=== PATIENT | female | born 1950 | race Hispanic/Latino ===

== ENCOUNTER 2017-12-10 10:27 | Inpatient (IN) | payer MEDICARE, OTHER ==
[~2017-12-10] VITALS: Ht 154.9 cm; Wt 117.0 kg
[~2017-12-10 10:27] MED LIST: ASPIRIN81 MG PO; ATENOLOL50 MG PO; METFORMIN HCL500 MG PO; OXYBUTYNIN CHLOR5 MG PO; SERTRALINE HCL50 MG PO; SIMVASTATIN20 MG PO; VASOTEC10 M1 PO
--- OUTSIDE RECORDS SUMMARY | 2017-12-10 10:30 | XMS REPORT | Continuity of Care Document ---
Author Author [facility] Organization [facility] Address [address] [place] [address] Phone Unavailable Care Team Providers Care Newspaper Or Periodical Editor Name Role Phone NO, PCP PCP Unavailable Insurance Providers Guarantor Compa Casas Address [address] [place] [address] Email [email or web address] Payer [employer] Policy Number [id number] Subscriber's Name Compa Casas Relationship 18 Self / Same As Patient Effective Date 17 Payer [employer] Policy Number [id number] Subscriber's Name Compa Casas Relationship 18 Self / Same As Patient Effective Date 17 Advance Directives Directive Response Recorded Date/Time Does the patient have an advance directive? No 11/23/17 4:13am If yes, is advance directive on file with [facility]? No 11/23/17 4:13am If not on file with [facility] will patient provide a copy? No 11/23/17 4:13am Do you have a Directive to Physician? No 11/22/17 7:47pm Do you have a Medical Power of Data Analytics Architect? No 11/22/17 7:47pm Do you have an out of hospital Do Not Resuscitate Order? No 11/22/17 7:47pm Do you have any special needs we should be aware of? No 11/22/17 7:47pm Do you have a support person here with you today? Yes 11/22/17 7:47pm Did patient receive Notice of Privacy Practices? Yes 11/22/17 7:47pm Did patient receive patient rights and responsibilities? Yes 11/22/17 7:47pm Problems Medical Problem Onset Date Status SBO (small bowel obstruction) Unknown Umbilical hernia Unknown Vomiting Unknown Medications Current Home Medications Medication Dose Units Route Directions Days Qty Instructions Start Date Aspirin 81 Mg Tab.chew Oral Daily Atenolol 50 Mg Tablet 100 Oral Daily Enalapril Maleate (Vasotec) 10 Mg Tablet 20 Oral Daily Metformin Hcl 500 Mg Tablet 500 Mg Oral Twice A Day 60 Tab Oxybutynin Chloride 5 Mg Tablet 5 Mg Oral Twice A Day 30 Tab Sertraline Hcl 50 Mg Tablet 50 Mg Oral Daily 30 Tab Simvastatin 20 Mg Tablet 20 Mg Oral Today At 9:00PM Social History Social History Problem Response Recorded Date/Time Onset Date Status Hx Psychiatric Problems No 11/23/2017 4:13am Not Applicable Not Applicable Hx Eating Disorder No 11/23/2017 4:13am Not Applicable Not Applicable Hx Substance Use Disorder No 11/23/2017 4:13am Not Applicable Not Applicable Hx Depression Yes 11/23/2017 4:13am Not Applicable Not Applicable Hx Alcohol Use No 11/23/2017 4:13am Not Applicable Not Applicable Hx Physical Abuse No 11/23/2017 4:13am Not Applicable Not Applicable Smoking Status Start Date Stop Date Never Smoker Hospital Discharge Instructions No hospital discharge instruction information available. Plan of Care Discharge Date 11/27/17 6:47pm Disposition HOME, SELF-CARE Instructions/Education Provided Post Operative Pain Stitches and [place] Care Prescriptions See Medication Section Referrals QUOC HANNAH MD (Surgery) Order Date: 12/03/2017 Entered Date: 11/27/2017 5:28pm Address: [address] [place] [id number] Additional Instructions/Education TAKE DRESSING OFF THURSDAY AND WASH INCISION WITH SOAP AND WATER. APPLY NEOSPORIN NO LIFTING >10LBS REGULAR DIET TAKE PAIN MEDICATION NEEDED AND TAKE ALL ANTIBIOTICS PRESCRIBED FOLLOW UP WITH DR. HANNAH NEXT WEEK. Functional Status Query Response Date Recorded Assistive Devices Standard Walker November 23, 2017 4:01am Ambulation Ability Independent November 23, 2017 4:01am Toileting Ability Maximum Assistance November 27, 2017 11:00am Allergies, Adverse Reactions, Alerts No known allergies. Immunizations No immunization information available. Vital Signs Acute Vital Signs Vital Response Date/Time Temperature (Fahrenheit) 98.9 degrees F (97.6 - 99.5) 11/27/2017 4:34pm Pulse Pulse Rate (adult) 62 bpm (60 - 90) 11/27/2017 4:34pm Respiratory Rate 16 bpm (12 - 24) 11/27/2017 4:34pm Blood Pressure 124/57 mm Hg 11/27/2017 4:34pm Height 5 ft 0 in 11/23/2017 1:58am Weight 294.56 lb 11/27/2017 8:21am Body Mass Index 57.5 kg/m^2 11/27/2017 8:21am Results Laboratory Results Test Name Result Units Flags Reference Collection Date/Time Result Date/ Time Comments White Blood Count 6.47 x10e3/uL 4.8-10.8 11/27/2017 7:00am 11/27/2017 7 :29am Red Blood Count 3.58 x10e6/uL L 3.6-5.1 11/27/2017 7:00am 11/27/2017 7: 29am Hemoglobin 9.6 g/dL L 12.0-16.0 11/27/2017 7:00am 11/27/2017 7:29am Hematocrit 30.1 % L 34.2-44.1 11/27/2017 7:00am 11/27/2017 7:29am Mean Corpuscular Volume 84.1 fL 81-99 11/27/2017 7:00am 11/27/2017 7: 29am Mean Corpuscular Hemoglobin 26.8 pg L 28-32 11/27/2017 7:00am 2017 7:29am Mean Corpuscular Hemoglobin Concent 31.9 g/dL 31-35 11/27/2017 7:00am 11/27/2017 7:29am Red Cell Distribution Width 14.1 % 11.7-14.4 11/27/2017 7:00am 2017 7:29am Platelet Count 113 x10e3/uL L 140-360 11/27/2017 7:00am 11/27/2017 7: 29am Neutrophils (%) (Auto) 76.9 % 38.7-80.0 11/27/2017 7:00am 11/27/2017 7: 29am Lymphocytes (%) (Auto) 10.5 % L 18.0-39.1 11/27/2017 7:00am 11/27/2017 7 :29am Monocytes (%) (Auto) 10.8 % 4.4-11.3 11/27/2017 7:00am 11/27/2017 7: 29am Eosinophils (%) (Auto) 1.1 % 0.0-6.0 11/27/2017 7:00am 11/27/2017 7: 29am Basophils (%) (Auto) 0.2 % 0.0-1.0 11/27/2017 7:0011/27/2017 7:29am IM GRANULOCYTES % 0.5 % 0.0-1.0 11/27/2017 7:00am 11/27/2017 7:29am Neutrophils # (Auto) 5.0 2.1-6.9 11/27/2017 7:00am 11/27/2017 7:29am Lymphocytes # (Auto) 0.7 L 1.0-3.2 11/27/2017 7:00am 11/27/2017 7: 29am Monocytes # (Auto) 0.7 0.2-0.8 11/27/2017 7:00am 11/27/2017 7:29am Eosinophils # (Auto) 0.1 0.0-0.4 11/27/2017 7:00am 11/27/2017 7:29am Basophils # (Auto) 0.0 0.0-0.1 11/27/2017 7:00am 11/27/2017 7:29am Absolute Immature Granulocyte (auto 0.03 x10e3/uL 0-0.1 11/27/2017 7: 00am 11/27/2017 7:29am Platelet Estimate SLIGHTLY DECREASED 11/25/2017 6:56am 11/25/2017 8 :35am Platelet Morphology Comment FEW LARGE 11/25/2017 6:56am 11/25/2017 8:35am NO CLUMPING SEEN ON SLIDE. [id number] on 11/25/17 by Jessica Mojica Anisocytosis SLIGHT 11/25/2017 6:56am 11/25/2017 8:35am Red Cell Morphology Comment NORMAL 11/25/2017 6:56am 11/25/2017 8: 35am Prothrombin Time 13.3 seconds 11.9-14.5 11/22/2017 7:17pm 11/22/2017 8: 34pm Prothromb Time International Ratio 0.96 11/22/2017 7:17pm 2017 8:34pm Oral Anticoagulant Therapy INR Values: 1. Low Intensity Therapy 1.5 - 2.0 2. Moderate Intensity Therapy 2.0 - 3.0 3. High Intensity Therapy(1) 2.5 - 3.5 4. High Intensity Therapy(2) 3.0 - 4.0 5. Panic Value INR > 5.0 Activated Partial Thromboplast Time 30.0 seconds 23.8-35.5 11/22/2017 7: 17pm 11/22/2017 8:34pm Urine Color YELLOW YELLOW 11/22/2017 7:17pm 11/22/2017 8:34pm Urine Clarity HAZY CLEAR 11/22/2017 7:17pm 11/22/2017 8:34pm Urine Specific [place] 1.025 1.010-1.025 11/22/2017 7:17pm 2017 8:34pm Urine pH 5 5 - 7 11/22/2017 7:pm 11/22/2017 8:34pm Urine Leukocyte Esterase TRACE H NEGATIVE 11/22/2017 7:pm 2017 8:34pm Urine Nitrite NEGATIVE NEGATIVE 11/22/2017 7:pm 11/22/2017 8:34pm Urine Protein NEGATIVE NEGATIVE 11/22/2017 7:pm 11/22/2017 8:34pm Urine Glucose (UA) NEGATIVE NEGATIVE 11/22/2017 7:pm 11/22/2017 8: 34pm Urine Ketones NEGATIVE NEGATIVE 11/22/2017 7:pm 11/22/2017 8:34pm Urine Urobilinogen 1 mg/dL 0.2 - 1 11/22/2017 7:pm 11/22/2017 8:34pm Urine Bilirubin 1+ H NEGATIVE 11/22/2017 7:pm 11/22/2017 8:34pm Urine Blood 1+ H NEGATIVE 11/22/2017 7:17pm 11/22/2017 8:34pm Urine WBC 6-10 /HPF H 0-5 11/22/2017 7:17pm 11/22/2017 10:16pm Urine RBC 6-10 /HPF H 0-5 11/22/2017 7:17pm 11/22/2017 10:16pm Urine Bacteria FEW /HPF NONE 11/22/2017 7:17pm 11/22/2017 10:16pm Urine Epithelial Cells MODERATE /LPF NONE 11/22/2017 7:17pm 11/22/2017 10:16pm Sodium Level 138 mmol/L 136-145 11/27/2017 7:00am 11/27/2017 7:58am Potassium Level 3.1 mmol/L L 3.5-5.1 11/27/2017 7:00am 11/27/2017 7: 58am Chloride Level 103 mmol/L 98-107 11/27/2017 7:00am 11/27/2017 7:58am Carbon Dioxide Level 25 mmol/L 22-29 11/27/2017 7:00am 11/27/2017 7: 58am Anion Gap 13.1 mmol/L 8-16 11/27/2017 7:00am 11/27/2017 7:58am Blood Urea Nitrogen 10 mg/dL 7-11/27/2017 7:00am 11/27/2017 7:58am Creatinine 0.90 mg/dL 0.57-1.11 11/27/2017 7:00am 11/27/2017 7:58am BUN/Creatinine Ratio 11 6-25 11/27/2017 7:00am 11/27/2017 7:58am Estimat Glomerular Filtration Rate > 60 ML/MIN 60- 11/27/2017 7:00am 7:58am Ranges were taken from the National Kidney Disease Education Program and the National Kidney Foundation literature. Reference ranges: 60 or greater: Normal 16-59 (for 3 consecutive months): Chronic kidney disease 15 or less: Kidney failure Glucose Level 93 mg/dL 74-118 11/27/2017 7:00am 11/27/2017 7:58am Calcium Level 8.1 mg/dL L 8.4-10.2 11/27/2017 7:00am 11/27/2017 7:58am Bedside Glucose 119 mg/dL 70-120 11/27/2017 11:27am 11/27/2017 12:02pm Meter ID: [id number] Lactic Acid Level 12.3 MG/DL 4.5-19.8 11/22/2017 7:17pm 11/22/2017 8: 28pm Magnesium Level 1.3 MG/DL 1.3-2.1 11/26/2017 6:33am 11/26/2017 8:05am Total Bilirubin 0.8 mg/dL 0.2-1.2 11/23/2017 7:40am 11/23/2017 8:21am Aspartate Amino Transf (AST/SGOT) 22 IU/L 5-34 11/23/2017 7:40am 2017 8:21am Alanine Aminotransferase (ALT/SGPT) 12 IU/L 0-55 11/23/2017 7:40am 02/2018 8:21am Total Protein 7.4 g/dL 6.5-8.1 11/23/2017 7:40am 11/23/2017 8:21am Albumin 3.5 g/dL 3.5-5.0 11/23/2017 7:40am 11/23/2017 8:21am Globulin 3.9 g/dL H 2.3-3.5 11/23/2017 7:40am 11/23/2017 8:21am Albumin/Globulin Ratio 0.9 0.8-2.0 11/23/2017 7:40am 11/23/2017 8: 21am Alkaline Phosphatase 66 IU/L 40-150 11/23/2017 7:40am 11/23/2017 8: 21am B-Type Natriuretic Peptide 49.2 pg/mL 0-100 11/22/2017 7:17pm 2017 8:47pm Creatine Kinase 80 IU/L 29-168 11/23/2017 4:00pm 11/23/2017 4:34pm Creatine Kinase MB 1.20 ng/mL 0.00-5.00 11/23/2017 4:00pm 11/23/2017 4: 39pm Troponin I 0.009 ng/mL 0-0.300 11/23/2017 4:00pm 11/23/2017 4:39pm Amylase Level 47 U/L 25-125 11/22/2017 7:17pm 11/22/2017 8:28pm Lipase 21 U/L 8-78 11/23/2017 7:40am 11/23/2017 8:21am Thyroid Stimulating Hormone (TSH) 0.622 uIU/mL 0.350-4.940 11/22/2017 7: 17pm 11/22/2017 8:47pm Procedures Procedure Status Date Provider(s) Exploratory laparotomy Active 11/23/17 JUAN RAMON HANNAH MD Repair of hernia of anterior abdominal wall Active 11/23/17 JUAN RAMON HANNAH MD Repair of hernia of anterior abdominal wall Completed 11/25/17 QUOC HANNAH MD Computed tomography of abdomen and pelvis with contrast Active 11/22/17 MARLENY CHAMBERLAIN HEEL CURVER Encounters Encounter Location Arrival/Admit Date Discharge/Depart Date Attending Provider Discharged Inpatient [facility] 11/22/17 11:03pm 6:47pm DWAIN ANDERSON MD
--- NOTE | 2017-12-10 11:50 | Diagnostic Imaging Report ---
PROCEDURE: A single AP view of the chest. COMPARISON: Patients [facility], DX, CHEST SINGLE (PORTABLE), 11/22/2017, 20:51. INDICATIONS: SHORT OF BREATH, DYSPNEA, COUGH FINDINGS: Lines/tubes: None. Lungs: Interval development of airspace opacities in the right upper and right lower lung. Left lung is grossly clear. Pleura: There is no pleural effusion or pneumothorax. Heart and mediastinum: Stable enlargement of the cardiac silhouette. Pulmonary vasculature is normal. Bones: No acute bony abnormality. IMPRESSION: 1. findings may represent multifocal pneumonia in the appropriate clinical setting. Unilateral alveolar pulmonary edema is a secondary consideration. Yasmany Gay M.D. Dictated by: Yasmany Gay M.D. on 12/10/2017 at 11:50 Electronically approved by: Yasmany Gay M.D. on 12/10/2017 at 11:50
[2017-12-10 12:04] LABS: BASOPHILS # (AUTO) 0.1 (0.0-0.1); BASOPHILS % 0.6 % (0.0-1.0); EOSINOPHILS # (AUTO) 0.2 (0.0-0.4); EOSINOPHILS % 1.8 % (0.0-6.0); HEMATOCRIT 31.4 % (34.2-44.1); LYMPHOCYTES # (AUTO) 0.9 (1.0-3.2); LYMPHOCYTES % 9.4 % (18.0-39.1); MEAN CORPUSCULAR HEMOGLOBIN 26.5 pg (28-32); MEAN CORPUSCULAR HGB CONC 31.8 g/dL (31-35); MEAN CORPUSCULAR VOLUME 83.1 fL (81-99); MONOCYTES # (AUTO) 0.8 (0.2-0.8); MONOCYTES % 8.4 % (4.4-11.3); NEUTROPHILS # (AUTO) 7.8 (2.1-6.9); NEUTROPHILS % 79.4 % (38.7-80.0); PLATELET COUNT 331 x10e3/uL (140-360); RED BLOOD COUNT 3.78 x10e6/uL (3.6-5.1); RED CELL DISTRIBUTION WIDTH 14.2 % (11.7-14.4)
[2017-12-10 12:14] LABS: INR 1.3; PROTHROMBIN TIME 15.2 seconds (11.9-14.5)
[2017-12-10 12:15] LABS: PARTIAL THROMBOPLASTIN TIME 31.1 seconds (23.8-35.5)
[2017-12-10 12:22] LABS: ALBUMIN 2.9 g/dL (3.5-5.0); ALBUMIN/GLOBULIN RATIO 0.6 (0.8-2.0); ANION GAP 16.3 mmol/L (8-16); CALCIUM 8.9 mg/dL (8.4-10.2); CREATININE, SERUM 0.94 mg/dL (0.57-1.11); POTASSIUM 3.3 mmol/L (3.5-5.1)
[2017-12-10 12:28] LABS: CREATINE KINASE MB 0.7 ng/mL (0-5.0)
[2017-12-10 12:37] LABS: BILIRUBIN,URINE NEGATIVE (NEGATIVE); KETONES,URINE NEGATIVE (NEGATIVE); LEUKOCYTE ESTERASE ,URINE TRACE (NEGATIVE); NITRITE,URINE NEGATIVE (NEGATIVE); PROTEIN,URINE DIPSTICK NEGATIVE (NEGATIVE); URINE UROBILINOGEN 4 mg/dL (0.2 - 1)
[2017-12-10 12:40] LABS: CLARITY,URINE SL CLOUDY (CLEAR); COLOR,URINE YELLOW (YELLOW)
[2017-12-10 13:01] LABS: EPITHELIAL CELLS,URINE MODERATE /LPF
[2017-12-10] MEDS ORDERED: SODIUM CHLORIDE 0.9% 1000ML 1,000 ML IV ONE (14:30)
--- NOTE | 2017-12-10 16:09 | Diagnostic Imaging Report ---
PROCEDURE: CT scan of the chest WITH intravenous contrast, using PE protocol. TECHNIQUE: The chest was scanned utilizing a multidetector helical scanner from the lung apex through the level of the adrenal glands after the IV administration of 78 cc of Isovue 370, with special concentration in the pulmonary arteries. Coronal and sagittal multiplanar reformations were obtained. COMPARISON: None. INDICATIONS: shortness of breath FINDINGS: Lines/tubes: None. Lungs and Airways: Centrally located small filling defect in a segmental branch of the posterior right lower lobe (series 2, images 74-77). Extensive groundglass opacity in the right upper lobe and to a lesser degree right lower lobe and right middle lobe, with intralobular septal thickening noted in the right upper lobe (for example series 3, images 37 and 68 and sagittal image 34). Mild compressive atelectasis of the right lower lobe. A few scattered groundglass opacities are noted in the lateral left upper lobe/lingula (series 3, image 50). Calcified granuloma in the posteromedial right lower lobe (series 2, image 101). No consolidation. Mild increase reticulation in the lower lobes with mild bronchiolectasis (for example, series 3, image 86). Airways are clear, without endobronchial lesions. Pleura: Small right pleural effusion Heart and mediastinum: Thyroid is unremarkable. Moderate cardiomegaly. Mild atherosclerotic calcification of the aortic bowels. Aorta is non-aneurysmal. Main pulmonary artery is enlarged, measuring 3.4 cm. Lymph nodes: No mediastinal, hilar, or axillary adenopathy. Abdomen: Limited contrast-enhanced views of the upper abdomen show borderline low attenuation of the right hepatic lobe, which likely reflects mild geographic steatosis. No focal lesions. Cholelithiasis. Visualized spleen is mildly enlarged, measuring 13.0 cm in AP diameter. Visualized pancreas and adrenal glands are unremarkable. Bones: No aggressive lytic lesion. Degenerative disc changes in the thoracic spine. Tissues are grossly unremarkable. IMPRESSION: 1. centrally located small filling defect in a segmental branch of the posterior right lower lobe likely represents a small pulmonary embolus. No other emboli are identified. 2. Extensive groundglass opacity in the right upper lobe and to a lesser degree right lower lobe and right middle lobe. Differential diagnosis in the acute setting includes pneumonia (particularly atypical organisms), or diffuse alveolar hemorrhage. In the chronic setting, interstitial lung disease and cryptogenic organizing pneumonia are considerations. Unilateral pulmonary edema could also be considered. 3. Moderate cardiomegaly. Enlarged main pulmonary artery suggesting pulmonary hypertension. 4. Cholelithiasis. 5. Mild splenomegaly. Yasmany Gay M.D. Dictated by: Yasmany Gay M.D. on 12/10/2017 at 16:09 Electronically approved by: Yasmany Gay M.D. on 12/10/2017 at 16:09
[2017-12-10] MEDS ORDERED: DEXTROSE 50% SYRINGE 50 ML IV PRN (19:00)
[2017-12-10] MEDS ORDERED: ASPIRIN 81 MG CHEW TAB PO ONE (19:00)
[2017-12-10] MEDS ORDERED: POTASSIUM CHLORIDE 20 MEQ TAB CR PO STA (19:21)
[2017-12-10] MEDS: AZITHROMYCIN 500MG/NS 250 ML 250 ML IV SCH (19:27)
[2017-12-10] MEDS: CEFTRIAXONE SOD 1 GM VIAL IV SCH (19:27)
[2017-12-10] MEDS: ENOXAPARIN SODIUM INJ 100 MG/ML SYR SC SCH (19:28)
--- NOTE | 2017-12-10 20:29 | History and Physical ---
HISTORY OF PRESENT ILLNESS: She is a 67-year-old female with past medical history positive for hypertension, diabetes, obesity, recent abdominal surgery for hernia repair. Two weeks ago patient came with shortness of breath. She was found to have pulmonary embolism and pneumonia on top of that. She is admitted to the hospital. REVIEW OF SYSTEMS: RESPIRATORY: She did have shortness of breath on exertion. No cough. GASTROINTESTINAL: No nausea, no vomiting and no diarrhea. GENITOURINARY: No frequency or dysuria. ALLERGIES: IS NOT ALLERGIC TO ANY MEDICATION. SOCIAL HISTORY: She does not smoke and she does not drink. PAST MEDICAL HISTORY: Hypertension and diabetes. PHYSICAL EXAMINATION: HEART: Shows regular rhythm with no murmurs and no extra sounds. LUNGS: Clear bilaterally. ABDOMEN: Soft. EXTREMITIES: Show no evidence of cyanosis, edema or trauma. VITAL SIGNS: Heart rate 69 per minute, blood pressure 120/64, respiratory rate 18 per minute, oxygen saturation 96%. On the lab work the urine showed leukocytes. On the BMP, sodium 138, potassium 3.3, chloride 98. CO2 27. BUN 20. Creatinine 0.94. Glucose 122. Lactic acid 9.1. Calcium 8.9. Total bilirubin 1.0. AST 20, ALT 14, alkaline phosphatase 91. Creatinine kinase 54. CK MB 0.70. Troponin 0.06. B-natriuretic peptide 91.1. Total protein 7.8. Albumin 2.9. Globulin 4.9. Albumin globulin ratio 0.6. On the PT 15.2. INR 1.30. PTT 31.1. On the chest CT it showed evidence of centrally located small filling defect in a segment branch of the posterior right lower lobe likely representing a small pulmonary embolism. No other emboli identified. Extensive ground glass opacity in the right upper lobe and to a lesser degree in the right lower lobe and right middle lobe. DIFFERENTIAL DIAGNOSES: 1. In acute setting includes pneumonia, particularly atypical organisms or diffuse alveolar hemorrhage in a chronic setting, interstitial lung disease, organism pneumonia consideration. Some bilateral pulmonary edema could also be considered. 2. Moderate cardiomegaly, enlarged main pulmonary artery such as pulmonary hypertension. 3. Cholelithiasis. 4. Mild splenomegaly. PLAN: Because of this, the patient has been started on Lovenox 1 mg/kg twice a day. Ceftriaxone 1 gram IV piggyback twice a day. Zithromax 500 mg IV piggyback daily. Aspirin has been given one time. We are going to resume the home medication which includes aspirin 81 mg daily. Atenolol 100 mg daily. Enalapril 20 mg daily. Metformin 500 mg twice a day. Oxybutynin 5 mg twice a day. Sertraline 15 mg daily. Going to hold the Zoloft because the patient is taking Zithromax. Job#: [id number]
[2017-12-10] MEDS: INSULIN REGULAR, HUMAN 100 UNIT/1 ML 3ML VIAL SQ SCH (21:00)
[2017-12-10] MEDS ORDERED: SODIUM CHLORIDE 0.9% 50ML 50 ML ONE (22:11)
[2017-12-10] MEDS ORDERED: IOPAMIDOL 370 MG/ML 200 ML INFUS..BTL INJ ONE (22:11)
[2017-12-10 22:56] LABS: CREATINE KINASE MB 0.7 ng/mL (0-5.0)
[2017-12-11] VITALS (12 sets, daily range): BP systolic 94–130; BP diastolic 32–71
[2017-12-11 05:35] LABS: BASOPHILS % 0.6 % (0.0-1.0); EOSINOPHILS # (AUTO) 0.3 (0.0-0.4); EOSINOPHILS % 3.5 % (0.0-6.0); HEMATOCRIT 27.9 % (34.2-44.1); HEMOGLOBIN 8.8 g/dL (12.0-16.0); LYMPHOCYTES # (AUTO) 1.2 (1.0-3.2); MEAN CORPUSCULAR HEMOGLOBIN 26.7 pg (28-32); MEAN CORPUSCULAR HGB CONC 31.5 g/dL (31-35); MEAN CORPUSCULAR VOLUME 84.5 fL (81-99); MONOCYTES # (AUTO) 0.7 (0.2-0.8); MONOCYTES % 9.8 % (4.4-11.3); NEUTROPHILS # (AUTO) 4.9 (2.1-6.9); NEUTROPHILS % 68.8 % (38.7-80.0); PLATELET COUNT 266 x10e3/uL (140-360); RED CELL DISTRIBUTION WIDTH 14.2 % (11.7-14.4)
[2017-12-11 05:56] LABS: ALANINE AMINOTRANSFERASE 11 IU/L (0-55); ALBUMIN 2.5 g/dL (3.5-5.0); ALBUMIN/GLOBULIN RATIO 0.6 (0.8-2.0); ALKALINE PHOSPHATASE 77 IU/L (40-150); ANION GAP 13.3 mmol/L (8-16); BLOOD UREA NITROGEN 15 mg/dL (7-26); BUN/CREATININE RATIO 19 (6-25); CALCIUM 8.4 mg/dL (8.4-10.2); CARBON DIOXIDE 26 mmol/L (22-29); CHLORIDE 103 mmol/L (98-107); CREATINE KINASE 54 IU/L (29-168); CREATININE, SERUM 0.79 mg/dL (0.57-1.11); EST GLOMERULAR FILTRATION RATE > 60 ML/MIN (60-); GLUCOSE 96 mg/dL (74-118); POTASSIUM 3.3 mmol/L (3.5-5.1); SODIUM 139 mmol/L (136-145)
--- NOTE | 2017-12-11 06:40 | Diagnostic Imaging Report ---
EXAMINATION: CHEST SINGLE (PORTABLE) INDICATION: Pneumonia. COMPARISON: 11/22/2017 FINDINGS: TUBES and LINES: None. LUNGS: Diffuse opacification of the right hemithorax with air bronchograms in the right upper lobe compatible with severe pneumonia. There is evidence of perihilar interstitial opacities, consistent with interstitial edema. PLEURA: No pleural effusion or pneumothorax. HEART AND MEDIASTINUM: Cardiac size is moderately enlarged. BONES AND SOFT TISSUES: No acute osseous lesion. Soft tissues are unremarkable. UPPER ABDOMEN: No free air under the diaphragm. IMPRESSION: 1. Right upper lobe predominant pneumonia. 2. Cardiomegaly with mild edema Signed by: Dr. Sin Reed M.D. on 12/11/2017 6:37 AM
[2017-12-11] MEDS: INSULIN REGULAR, HUMAN 100 UNIT/1 ML 3ML VIAL SQ SCH ×4 (07:30→20:34)
[2017-12-11] MEDS ORDERED: POTASSIUM CHLORIDE 20 MEQ TAB CR PO STA (08:38)
[2017-12-11] MEDS ORDERED: AZITHROMYCIN 500MG/SOD CHL 0.9% 250ML BAG IV SCH (09:00)
[2017-12-11] MEDS: ENALAPRIL MALEATE 10 MG TAB PO SCH (09:00)
[2017-12-11] MEDS: ATENOLOL 50 MG TAB PO SCH (09:00)
[2017-12-11] MEDS: ENOXAPARIN SODIUM INJ 100 MG/ML SYR SC SCH ×2 (09:32→19:51)
[2017-12-11] MEDS: CEFTRIAXONE SOD 1 GM VIAL IV SCH (09:32)
[2017-12-11] MEDS: SERTRALINE HCL 50 MG TAB PO SCH (09:42)
[2017-12-11] MEDS: ASPIRIN 81 MG CHEW TAB PO SCH (09:42)
[2017-12-11] MEDS: OXYBUTYNIN CHLORIDE 5 MG TAB PO SCH ×2 (09:42→19:22)
[2017-12-11] MEDS: METFORMIN HCL 500 MG TAB PO SCH ×2 (09:42→19:22)
--- NOTE | 2017-12-11 10:52 | Consultation ---
DATE OF CONSULTATION: PRIMARY CARE PHYSICIAN: Dr. Donny Zamora REQUESTING PHYSICIAN: Dr. Dwain Tinajero REASON FOR CONSULTATION: Pneumonia and pulmonary embolism HPI: Ms. Leach is a 67-year-old female who was admitted November 22, 2017, with small-bowel obstruction, hernia and vomiting. Patient underwent exploratory laparotomy, release of small-bowel obstruction, ventral hernia repair and omentectomy. Postoperatively, patient was discharged home in 2 days. She was well up until a week ago when she started having increasing cough and shortness of breath. She saw her primary care physician, and cough syrup was prescribed, but it did not improve, so she went back and was sent for admission to the hospital. Patient reports that her shortness of breath is a little better. They did a CTA of the chest in the emergency room which showed evidence of right-sided pneumonia and they reported a small right lower lobe pulmonary embolism. She denies any chest pain, nausea or vomiting. REVIEW OF SYSTEMS GENERAL: Patient is having shortness of breath and possible fever at home but no fever here. HEAD: Denies any head trauma or head injury. ENT: Denies any earache, nosebleed or throat pain. CVS: Denies any chest pain. RESPIRATORY: As in HPI. GI: Denies any nausea or vomiting. OTHER: The rest of the review of systems are negative except as in HPI. PAST MEDICAL HISTORY: Hypertension, diabetes, hyperlipidemia, obesity, recent ventral hernia repair, and recent surgery for a small-bowel obstruction. FAMILY AND SOCIAL HISTORY: She does not drink and does not smoke. PHYSICAL EXAMINATION VITAL SIGNS: Temperature 98, pulse of 60, blood pressure 100/68, respiratory rate 18. O2 sat 100% on 2 L nasal cannula. SKIN: Warm and dry. GENERAL APPEARANCE: She is a middle-aged female not in any obvious distress. She is awake, alert, following commands, responding to questions appropriately. HEENT: Head is atraumatic, normocephalic. Pupils are reactive. NECK: Supple. No JVD. CHEST: Patient has crackles on the right side. HEART: S1, S2 audible. ABDOMEN: Soft, nontender and nondistended. EXTREMITIES: No clubbing, cyanosis or edema. NEUROLOGIC: Awake, alert and oriented. LABORATORY DATA: White count of 7.05, hemoglobin 8.8, platelets 266. Chemistries: Sodium 139, potassium 3.3, chloride 103, bicarb 26, BUN 15, creatinine 0.79. Blood cultures have been negative. CT chest: I reviewed the film. It is showing extensive right multilobar pneumonia and also some evidence of some bronchiectasis as well. They have reported a small pulmonary embolism. I reviewed the film. It is not very convincing, however, it has been reported by radiology. ASSESSMENT AND PLAN: Beatriz Coreas is a 67-year-old female who presented with shortness of breath and right-sided multilobar pneumonia, with recent hospitalization, which was around 2 weeks ago, hence possibly has hospital-acquired pneumonia. Small segmental pulmonary embolism reported. CURRENT PROBLEMS 1. Right-sided multilobar pneumonia. 2. Obesity. 3. Diabetes. 4. Hypertension. 5. Segmental pulmonary embolism. PLAN 1. I will start the patient on IV Zosyn. Continue the patient on azithromycin to have broader coverage as patient can have has healthcare-associated pneumonia due to recent hospitalization. 2. Continue the patient on Lovenox for now. Will discuss with Dr. Tinajero. Possibly may not need anticoagulation because of the segmental questionable pulmonary embolism. 3. Oxygen as needed to keep the O2 sat more than or equal to 92%. 4. Continue antihypertensive medications. Job#: [id number]
[2017-12-11] MEDS: PIPER-TAZ 3.375 GM 50 ML IV SCH ×2 (15:00→21:28)
[2017-12-11] MEDS ORDERED: SODIUM CHLORIDE 0.9% 250ML 250 ML ONE (19:49)
[2017-12-11] MEDS: AZITHROMYCIN 500MG/NS 250 ML 250 ML IV SCH (19:51)
[2017-12-12] VITALS (10 sets, daily range): BP systolic 87–120; BP diastolic 52–70
[2017-12-12] MEDS: PIPER-TAZ 3.375 GM 50 ML IV SCH ×3 (05:57→16:25)
[2017-12-12] MEDS: INSULIN REGULAR, HUMAN 100 UNIT/1 ML 3ML VIAL SQ SCH ×4 (07:53→21:00)
[2017-12-12] MEDS: ASPIRIN 81 MG CHEW TAB PO SCH (07:58)
[2017-12-12] MEDS: METFORMIN HCL 500 MG TAB PO SCH ×2 (07:58→18:16)
[2017-12-12] MEDS: ENOXAPARIN SODIUM INJ 100 MG/ML SYR SC SCH (08:01)
[2017-12-12] MEDS: ENALAPRIL MALEATE 10 MG TAB PO SCH (08:11)
[2017-12-12] MEDS: OXYBUTYNIN CHLORIDE 5 MG TAB PO SCH ×2 (08:11→18:16)
[2017-12-12] MEDS: ATENOLOL 50 MG TAB PO SCH (08:11)
[2017-12-12] MEDS: SERTRALINE HCL 50 MG TAB PO SCH (08:12)
[2017-12-12] MEDS ORDERED: NYSTATIN 15 GM POWDER UD BTL TOP PRN (13:15)
[2017-12-12] MEDS ORDERED: FLUCONAZOLE 100 MG TAB PO ONE (15:00)
[2017-12-12] MEDS: BETAMETHASONE/CLOTRIMAZOLE CR 15 GM TUBE TOP SCH ×2 (16:25→18:16)
[2017-12-13] VITALS (7 sets, daily range): BP systolic 108–157; BP diastolic 53–88
[2017-12-13] MEDS: PIPER-TAZ 3.375 GM 50 ML IV SCH ×3 (05:53→21:40)
[2017-12-13 07:26] LABS: BASOPHILS % 0.6 % (0.0-1.0); EOSINOPHILS # (AUTO) 0.4 (0.0-0.4); EOSINOPHILS % 6.6 % (0.0-6.0); HEMATOCRIT 29.8 % (34.2-44.1); HEMOGLOBIN 9.2 g/dL (12.0-16.0); LYMPHOCYTES # (AUTO) 1.3 (1.0-3.2); LYMPHOCYTES % 19.8 % (18.0-39.1); MEAN CORPUSCULAR HEMOGLOBIN 26.4 pg (28-32); MEAN CORPUSCULAR HGB CONC 30.9 g/dL (31-35); MEAN CORPUSCULAR VOLUME 85.6 fL (81-99); MONOCYTES # (AUTO) 0.6 (0.2-0.8); MONOCYTES % 9.5 % (4.4-11.3); NEUTROPHILS # (AUTO) 4.2 (2.1-6.9); PLATELET COUNT 275 x10e3/uL (140-360); RED BLOOD COUNT 3.48 x10e6/uL (3.6-5.1); RED CELL DISTRIBUTION WIDTH 14.4 % (11.7-14.4)
[2017-12-13] MEDS: INSULIN REGULAR, HUMAN 100 UNIT/1 ML 3ML VIAL SQ SCH ×4 (07:30→21:00)
[2017-12-13 07:31] LABS: ANION GAP 14.5 mmol/L (8-16); BLOOD UREA NITROGEN 12 mg/dL (7-26); BUN/CREATININE RATIO 14 (6-25); CALCIUM 8.7 mg/dL (8.4-10.2); CARBON DIOXIDE 27 mmol/L (22-29); CHLORIDE 104 mmol/L (98-107); CREATININE, SERUM 0.84 mg/dL (0.57-1.11); EST GLOMERULAR FILTRATION RATE > 60 ML/MIN (60-); GLUCOSE 99 mg/dL (74-118); POTASSIUM 3.5 mmol/L (3.5-5.1); SODIUM 142 mmol/L (136-145)
[2017-12-13] MEDS: ASPIRIN 81 MG CHEW TAB PO SCH (08:20)
[2017-12-13] MEDS: FLUCONAZOLE 100 MG TAB PO SCH (08:20)
[2017-12-13] MEDS: OXYBUTYNIN CHLORIDE 5 MG TAB PO SCH ×2 (08:20→16:55)
[2017-12-13] MEDS: METFORMIN HCL 500 MG TAB PO SCH ×2 (08:20→16:55)
[2017-12-13] MEDS: AZITHROMYCIN 250 MG TAB PO SCH (08:21)
[2017-12-13] MEDS: SERTRALINE HCL 50 MG TAB PO SCH (08:21)
[2017-12-13] MEDS: ENALAPRIL MALEATE 10 MG TAB PO SCH (08:21)
[2017-12-13] MEDS: ATENOLOL 50 MG TAB PO SCH (08:21)
[2017-12-13] MEDS: BETAMETHASONE/CLOTRIMAZOLE CR 15 GM TUBE TOP SCH ×2 (08:21→16:55)
[2017-12-13] MEDS ORDERED: DIPHENHYDRAMINE HCL 25 MG CAP PO PRN (13:30)
[2017-12-13] MEDS ORDERED: ACETAMINOPHEN 325 MG TAB PO PRN (13:30)
[2017-12-13] MEDS ORDERED: SODIUM CHLORIDE 0.9% 250ML 250 ML ONE (14:38)
[2017-12-13] MEDS: IRON SUCROSE 100 MG in SODIUM CHLORIDE 0.9% 100 ML 100 ML IV SCH (15:15)
[2017-12-13] MEDS: ENOXAPARIN SOD INJ 40 MG/0.4 ML SYR SC SCH (16:55)
[2017-12-14] VITALS: BP 102/51
[2017-12-14 05:02] VITALS: BP 102/48
[2017-12-14] MEDS: PIPER-TAZ 3.375 GM 50 ML IV SCH ×3 (06:05→21:30)
[2017-12-14] MEDS: INSULIN REGULAR, HUMAN 100 UNIT/1 ML 3ML VIAL SQ SCH ×4 (07:30→21:00)
[2017-12-14 07:54] VITALS: BP 106/55
[2017-12-14] MEDS: METFORMIN HCL 500 MG TAB PO SCH ×2 (08:00→17:00)
[2017-12-14] MEDS: ASPIRIN 81 MG CHEW TAB PO SCH (08:21)
[2017-12-14] MEDS: ATENOLOL 50 MG TAB PO SCH (08:22)
[2017-12-14] MEDS: OXYBUTYNIN CHLORIDE 5 MG TAB PO SCH ×2 (08:22→17:00)
[2017-12-14] MEDS: FLUCONAZOLE 100 MG TAB PO SCH (08:22)
[2017-12-14] MEDS: ENALAPRIL MALEATE 10 MG TAB PO SCH (08:23)
[2017-12-14] MEDS: SERTRALINE HCL 50 MG TAB PO SCH (08:23)
[2017-12-14] MEDS: AZITHROMYCIN 250 MG TAB PO SCH (08:23)
[2017-12-14] MEDS: BETAMETHASONE/CLOTRIMAZOLE CR 15 GM TUBE TOP SCH ×2 (09:00→17:00)
[2017-12-14 12:31] VITALS: BP 102/50
[2017-12-14] MEDS: IRON SUCROSE 100 MG in SODIUM CHLORIDE 0.9% 100 ML 100 ML IV SCH (14:00)
[2017-12-14] MEDS ORDERED: ACETAMINOPHEN 325 MG TAB PO PRN (15:45)
[2017-12-14] MEDS ORDERED: DIPHENHYDRAMINE HCL 25 MG CAP PO PRN (15:45)
[2017-12-14 16:51] VITALS: BP 116/56
[2017-12-14] MEDS: ENOXAPARIN SOD INJ 40 MG/0.4 ML SYR SC SCH (17:00)
[2017-12-14] MEDS ORDERED: SODIUM CHLORIDE 0.9% 250ML 250 ML ONE (18:16)
[2017-12-14 20:00] VITALS: BP 116/55
[2017-12-15] VITALS: BP 121/54
[2017-12-15 00:57] VITALS: BP 121/54
[2017-12-15] MEDS: PIPER-TAZ 3.375 GM 50 ML IV SCH ×3 (05:37→22:11)
[2017-12-15 06:49] LABS: BASOPHILS # (AUTO) 0.1 (0.0-0.1); BASOPHILS % 0.8 % (0.0-1.0); EOSINOPHILS # (AUTO) 0.5 (0.0-0.4); EOSINOPHILS % 6.3 % (0.0-6.0); HEMATOCRIT 29.1 % (34.2-44.1); HEMOGLOBIN 9.1 g/dL (12.0-16.0); LYMPHOCYTES # (AUTO) 1.3 (1.0-3.2); LYMPHOCYTES % 16.3 % (18.0-39.1); MEAN CORPUSCULAR HEMOGLOBIN 26.5 pg (28-32); MEAN CORPUSCULAR HGB CONC 31.3 g/dL (31-35); MEAN CORPUSCULAR VOLUME 84.6 fL (81-99); MONOCYTES # (AUTO) 0.7 (0.2-0.8); MONOCYTES % 9.2 % (4.4-11.3); NEUTROPHILS # (AUTO) 5.2 (2.1-6.9); NEUTROPHILS % 66.8 % (38.7-80.0); PLATELET COUNT 278 x10e3/uL (140-360); RED BLOOD COUNT 3.44 x10e6/uL (3.6-5.1); RED CELL DISTRIBUTION WIDTH 14.6 % (11.7-14.4)
[2017-12-15 07:10] LABS: ANION GAP 13.7 mmol/L (8-16); BLOOD UREA NITROGEN 14 mg/dL (7-26); BUN/CREATININE RATIO 17 (6-25); CARBON DIOXIDE 26 mmol/L (22-29); CHLORIDE 105 mmol/L (98-107); CREATININE, SERUM 0.81 mg/dL (0.57-1.11); EST GLOMERULAR FILTRATION RATE > 60 ML/MIN (60-); GLUCOSE 91 mg/dL (74-118); POTASSIUM 3.7 mmol/L (3.5-5.1); SODIUM 141 mmol/L (136-145)
[2017-12-15] MEDS: INSULIN REGULAR, HUMAN 100 UNIT/1 ML 3ML VIAL SQ SCH ×4 (07:30→20:30)
[2017-12-15] MEDS: METFORMIN HCL 500 MG TAB PO SCH ×2 (08:00→16:41)
[2017-12-15] MEDS: OXYBUTYNIN CHLORIDE 5 MG TAB PO SCH ×2 (08:19→16:41)
[2017-12-15] MEDS: FLUCONAZOLE 100 MG TAB PO SCH (08:19)
[2017-12-15] MEDS: ASPIRIN 81 MG CHEW TAB PO SCH (08:19)
[2017-12-15] MEDS: ATENOLOL 50 MG TAB PO SCH (08:19)
[2017-12-15] MEDS: AZITHROMYCIN 250 MG TAB PO SCH (08:20)
[2017-12-15] MEDS: ENALAPRIL MALEATE 10 MG TAB PO SCH (08:20)
[2017-12-15] MEDS: SERTRALINE HCL 50 MG TAB PO SCH (08:21)
[2017-12-15] MEDS: BETAMETHASONE/CLOTRIMAZOLE CR 15 GM TUBE TOP SCH ×2 (08:21→16:41)
[2017-12-15 08:28] VITALS: BP 104/50
[2017-12-15 13:23] VITALS: BP 100/50
[2017-12-15] MEDS: IRON SUCROSE 100 MG in SODIUM CHLORIDE 0.9% 100 ML 100 ML IV SCH (14:00)
[2017-12-15] MEDS: ENOXAPARIN SOD INJ 40 MG/0.4 ML SYR SC SCH (16:41)
[2017-12-15 17:02] VITALS: BP 116/56
[2017-12-15 20:00] VITALS: BP 107/53
[2017-12-16] VITALS (9 sets, daily range): BP systolic 109–134; BP diastolic 52–61
[2017-12-16] MEDS: PIPER-TAZ 3.375 GM 50 ML IV SCH ×3 (06:01→21:42)
[2017-12-16] MEDS: INSULIN REGULAR, HUMAN 100 UNIT/1 ML 3ML VIAL SQ SCH ×4 (07:30→21:00)
[2017-12-16] MEDS: AZITHROMYCIN 250 MG TAB PO SCH (08:49)
[2017-12-16] MEDS: ASPIRIN 81 MG CHEW TAB PO SCH (08:49)
[2017-12-16] MEDS: OXYBUTYNIN CHLORIDE 5 MG TAB PO SCH ×2 (08:49→16:34)
[2017-12-16] MEDS: ENALAPRIL MALEATE 10 MG TAB PO SCH (08:49)
[2017-12-16] MEDS: ATENOLOL 50 MG TAB PO SCH (08:49)
[2017-12-16] MEDS: METFORMIN HCL 500 MG TAB PO SCH ×2 (08:49→16:34)
[2017-12-16] MEDS: SERTRALINE HCL 50 MG TAB PO SCH (08:49)
[2017-12-16] MEDS: FLUCONAZOLE 100 MG TAB PO SCH (08:49)
--- NOTE | 2017-12-16 09:28 | Discharge Summary ---
PCP: Dr. Donny Zamora LEAD SOFTWARE ARCHITECT: Dr. Jeremy Young FINAL DIAGNOSES: 1. Multifocal pneumonia. 2. Status post hypoxia. 3. Recent history of small-bowel obstruction surgery. SUMMARY: A 67-year-old female came in with multifocal pneumonia. There was vague questionable PE, but confirmed with V/Q scan, was negative. Venous Doppler of the lower extremity negative. Therefore, no full anticoagulation. The patient was on DVT prophylaxis. She has been on Zosyn and azithromycin. She did much better. She does have some candidiasis of the abdominal fold area, which was treated with clotrimazole and betamethasone along with fluconazole. Patient is stable now. She will go home with the following medications: 1. Resume home medication with adjustment of atenolol 50 mg once a day. 2. Augmentin 875 mg b.i.d. with food for 5 days. 3. Tessalon Perles p.r.n. 4. Diflucan 100 mg daily for 5 days. FOLLOWUP: 1. Patient to follow up with Dr. Donny Zamora within 1 week. 2. The patient to follow up with Dr. Migel Pritchett for previous abdominal surgery followup for staple removal. LAB WORK: Includes sodium 141, potassium 3.7, chloride 105, bicarb 26, BUN 14, creatinine 0.8, glucose 91. WBC 7.8, hemoglobin 9.1, hematocrit 29, platelets is 278,000. The patient did receive iron infusion Venofer 100 mg IV daily for 3 days. The patient is stable and discharged home today. Job#: [id number]
--- NOTE | 2017-12-16 11:11 | Diagnostic Imaging Report ---
PROCEDURE: X-RAY CHEST, TWO VIEWS COMPARISON: Chest x-ray 12/11/17. INDICATIONS: PNEUMONIA FINDINGS: LUNGS: There is stable hyperinflation consistent with small airways disease. Patchy airspace opacities in the right lung have improved but not completely resolved. The patchy airspace opacities in the left lung are similar. Diffuse bronchial thickening is stable. PLEURA: No effusions or pneumothorax. HEART \T\ MEDIASTINUM: Stable cardiomegaly. Prominent pulmonary arteries are suggestive of pulmonary artery hypertension. BONES \T\ SOFT TISSUES: Diffuse demineralization. No focal osseous lesions. CONCLUSION: Diminishing pulmonary infiltrates, either edema or pneumonia. Stable cardiomegaly. Mild vascular congestion. Dictated by: Dale Alicea M.D. on 12/16/2017 at 11:12 Electronically approved by: Dale Alicea M.D. on 12/16/2017 at 11:12
[2017-12-16] MEDS: BETAMETHASONE/CLOTRIMAZOLE CR 15 GM TUBE TOP SCH ×2 (11:59→16:34)
[2017-12-16] MEDS: ENOXAPARIN SOD INJ 40 MG/0.4 ML SYR SC SCH (16:34)
[2017-12-17] VITALS (7 sets, daily range): BP systolic 109–141; BP diastolic 53–63
[2017-12-17] MEDS: PIPER-TAZ 3.375 GM 50 ML IV SCH ×3 (06:36→21:33)
[2017-12-17] MEDS: INSULIN REGULAR, HUMAN 100 UNIT/1 ML 3ML VIAL SQ SCH ×4 (07:30→21:00)
[2017-12-17] MEDS: FLUCONAZOLE 100 MG TAB PO SCH (08:29)
[2017-12-17] MEDS: ASPIRIN 81 MG CHEW TAB PO SCH (08:29)
[2017-12-17] MEDS: METFORMIN HCL 500 MG TAB PO SCH ×2 (08:29→16:40)
[2017-12-17] MEDS: OXYBUTYNIN CHLORIDE 5 MG TAB PO SCH ×2 (08:29→16:40)
[2017-12-17] MEDS: BETAMETHASONE/CLOTRIMAZOLE CR 15 GM TUBE TOP SCH ×3 (08:30→16:41)
[2017-12-17] MEDS: ENALAPRIL MALEATE 10 MG TAB PO SCH (08:30)
[2017-12-17] MEDS: AZITHROMYCIN 250 MG TAB PO SCH (08:30)
[2017-12-17] MEDS: SERTRALINE HCL 50 MG TAB PO SCH (08:30)
[2017-12-17] MEDS: ATENOLOL 50 MG TAB PO SCH (08:30)
[2017-12-17] MEDS ORDERED: ALBUTEROL/IPRATROPIUM 3 ML NEB NEB PRN (09:30)
[2017-12-17] MEDS ORDERED: BENZONATATE 100 MG CAP PO PRN (09:30)
[2017-12-17] MEDS: BENZONATATE 100 MG CAP PO SCH ×2 (14:00→21:33)
[2017-12-17] MEDS: ENOXAPARIN SOD INJ 40 MG/0.4 ML SYR SC SCH (16:40)
--- NOTE | 2017-12-17 16:55 | Diagnostic Imaging Report ---
EXAM: VENTILATION PERFUSION LUNG SCAN INDICATION: Hypoxia, SOB x 1 week. Surgery on 11/22/2017. Pneumonia. COMPARISON: Chest radiograph 12/11/2017 DISCUSSION: Xenon-133 gas 18 mCi was administered via inhalation. Dynamic images of the lungs in the posterior projection were obtained through single breath and washout phases. Distribution of tracer activity is irregular throughout the lungs. Washout is diffusely delayed without evidence of air trapping. Perfusion images of the lungs in multiple projections were obtained following intravenous administration of approximately 6 mCi of Tc-99m MAA. Distribution of tracer is irregular throughout the lungs. There are no segmental perfusion defects of any size. The contours of the lungs are well demarcated. The cardiac silhouette is moderately enlarged. IMPRESSION: 1. Scan findings represent a VERY LOW probability for acute pulmonary embolic disease based on the PIOPED II criteria. 2. Scan findings are compatible with diffuse parenchymal and/or obstructive lung disease. Signed by: Dr. Becky Kerr M.D. on 12/17/2017 4:52 PM
[2017-12-18] VITALS (9 sets, daily range): BP systolic 105–145; BP diastolic 52–80
[2017-12-18] MEDS: PIPER-TAZ 3.375 GM 50 ML IV SCH ×3 (05:38→22:04)
[2017-12-18] MEDS: INSULIN REGULAR, HUMAN 100 UNIT/1 ML 3ML VIAL SQ SCH ×4 (07:30→20:05)
[2017-12-18] MEDS ORDERED: LEVALBUTEROL HCL SOLN NEBU 1.25 MG/3 ML NEB INH PRN (08:00)
[2017-12-18] MEDS: ASPIRIN 81 MG CHEW TAB PO SCH (09:17)
[2017-12-18] MEDS: METFORMIN HCL 500 MG TAB PO SCH ×2 (09:17→18:23)
[2017-12-18] MEDS: FLUCONAZOLE 100 MG TAB PO SCH (09:17)
[2017-12-18] MEDS: ATENOLOL 50 MG TAB PO SCH (09:18)
[2017-12-18] MEDS: SERTRALINE HCL 50 MG TAB PO SCH (09:18)
[2017-12-18] MEDS: ENALAPRIL MALEATE 10 MG TAB PO SCH (09:18)
[2017-12-18] MEDS: OXYBUTYNIN CHLORIDE 5 MG TAB PO SCH ×2 (09:18→18:23)
[2017-12-18] MEDS: BENZONATATE 100 MG CAP PO SCH ×3 (09:18→20:05)
[2017-12-18] MEDS: AZITHROMYCIN 250 MG TAB PO SCH (09:18)
[2017-12-18] MEDS: BETAMETHASONE/CLOTRIMAZOLE CR 15 GM TUBE TOP SCH ×2 (09:19→18:23)
[2017-12-18] MEDS: GUAIFENESIN/CODEINE 10 ML CUP PO PRN ×2 (09:20→16:43)
[2017-12-18] MEDS ORDERED: VANCOMYCIN 1GM/NS 250 ML 250 ML IV SCH ×2 (11:00→18:00)
[2017-12-18] MEDS ORDERED: DEXTROSE 50% SYRINGE 50 ML IV PRN (18:00)
[2017-12-18] MEDS ORDERED: GUAIFENESIN/CODEINE 10 ML CUP PO PRN (18:00)
[2017-12-18] MEDS ORDERED: DIPHENHYDRAMINE HCL 25 MG CAP PO PRN (18:00)
[2017-12-18] MEDS ORDERED: ENOXAPARIN SOD INJ 40 MG/0.4 ML SYR SC SCH (18:13)
[2017-12-18] MEDS: ACETAMINOPHEN 325 MG TAB PO PRN (20:05)
[2017-12-19] VITALS (51 sets, daily range): BP systolic 74–170; BP diastolic 48–102
[2017-12-19] MEDS: PIPER-TAZ 3.375 GM 50 ML IV SCH (06:24)
[2017-12-19] MEDS: INSULIN REGULAR, HUMAN 100 UNIT/1 ML 3ML VIAL SQ SCH ×3 (07:30→18:00)
[2017-12-19] MEDS ORDERED: ALBUTEROL/IPRATROPIUM 3 ML NEB ONE (07:58)
[2017-12-19] MEDS: LEVALBUTEROL HCL SOLN NEBU 1.25 MG/3 ML NEB INH PRN (08:45)
[2017-12-19] MEDS ORDERED: ENALAPRIL MALEATE 10 MG TAB PO SCH (09:00)
[2017-12-19] MEDS ORDERED: ASPIRIN 81 MG CHEW TAB PO SCH (09:00)
[2017-12-19] MEDS: BETAMETHASONE/CLOTRIMAZOLE CR 15 GM TUBE TOP SCH ×2 (09:00→17:21)
[2017-12-19] MEDS ORDERED: BETAMETHASONE/CLOTRIMAZOLE CR 15 GM TUBE TOP SCH (09:00)
[2017-12-19] MEDS ORDERED: AZITHROMYCIN 250 MG TAB PO SCH (09:00)
[2017-12-19] MEDS ORDERED: OXYBUTYNIN CHLORIDE 5 MG TAB PO SCH (09:00)
[2017-12-19] MEDS: OXYBUTYNIN CHLORIDE 5 MG TAB PO SCH ×2 (10:20→17:00)
[2017-12-19] MEDS: METFORMIN HCL 500 MG TAB PO SCH (10:20)
[2017-12-19] MEDS: ATENOLOL 50 MG TAB PO SCH (10:20)
[2017-12-19] MEDS: FLUCONAZOLE 100 MG TAB PO SCH (10:20)
[2017-12-19] MEDS: SERTRALINE HCL 50 MG TAB PO SCH (10:21)
[2017-12-19] MEDS: BENZONATATE 100 MG CAP PO SCH ×2 (10:21→14:18)
[2017-12-19] MEDS: AZITHROMYCIN 250 MG TAB PO SCH (10:21)
[2017-12-19 11:16] LABS: BASOPHILS % 0.3 % (0.0-1.0); EOSINOPHILS # (AUTO) 0.1 (0.0-0.4); EOSINOPHILS % 0.6 % (0.0-6.0); HEMATOCRIT 29.2 % (34.2-44.1); HEMOGLOBIN 9.1 g/dL (12.0-16.0); LYMPHOCYTES # (AUTO) 0.4 (1.0-3.2); LYMPHOCYTES % 3.7 % (18.0-39.1); MEAN CORPUSCULAR HEMOGLOBIN 27.1 pg (28-32); MEAN CORPUSCULAR HGB CONC 31.2 g/dL (31-35); MEAN CORPUSCULAR VOLUME 86.9 fL (81-99); NEUTROPHILS # (AUTO) 10.5 (2.1-6.9); NEUTROPHILS % 86.8 % (38.7-80.0); PLATELET COUNT 209 x10e3/uL (140-360); RED BLOOD COUNT 3.36 x10e6/uL (3.6-5.1); RED CELL DISTRIBUTION WIDTH 15.8 % (11.7-14.4)
[2017-12-19] MEDS: VANCOMYCIN 1GM/NS 250 ML 250 ML IV SCH (11:25)
[2017-12-19 11:35] LABS: ANION GAP 15.8 mmol/L (8-16); BLOOD UREA NITROGEN 13 mg/dL (7-26); BUN/CREATININE RATIO 16 (6-25); CARBON DIOXIDE 27 mmol/L (22-29); CHLORIDE 100 mmol/L (98-107); CREATININE, SERUM 0.82 mg/dL (0.57-1.11); EST GLOMERULAR FILTRATION RATE > 60 ML/MIN (60-); GLUCOSE 133 mg/dL (74-118); POTASSIUM 3.8 mmol/L (3.5-5.1); SODIUM 139 mmol/L (136-145)
[2017-12-19 12:03] LABS: EOSINOPHILS % (MANUAL) 1 % (0-7); LYMPHOCYTES % (MANUAL) 3 % (19-48); MONOCYTES % (MANUAL) 8 % (3.4-9.0); NEUTROPHILS % (MANUAL) 88 % (40-74)
[2017-12-19 12:04] LABS: ANISOCYTOSIS SLIGHT; PLATELET ESTIMATE ADEQUATE; PLATELET MORPHOLOGY COMMENT NORMAL; RBC MORPHOLOGY COMMENT NORMAL
--- NOTE | 2017-12-19 13:14 | Diagnostic Imaging Report ---
EXAM: CT Chest WITHOUT contrast 12/19/2017 10:57 AM INDICATION: \S\SOB/ F/U ON PNEUMONIA \[id number] \S\1150 COMPARISON: Chest radiograph from 12/16/[address] chest from 12/10/2017 TECHNIQUE: Chest was scanned utilizing a multidetector helical scanner from the lung apex through the level of the adrenal glands without administration of IV contrast. Absence of intravenous contrast decreases sensitivity for detection of lymphadenopathy and vascular pathology. Coronal and sagittal reformations were obtained. Routine protocol was performed. IV CONTRAST: None COMPLICATIONS: None RADIATION DOSE: Total DLP: 586.2 mGy*cm Estimated effective dose: (DLP x 0.015 x size factor) mSv CTDIvol has been reviewed. It is below the limits set by the Radiation Protocol Committee (RPC). FINDINGS: LINES/ TUBES: None. LUNGS AND AIRWAYS: Interval worsening now severe bilateral central and peripheral groundglass opacities with associated septal thickening given the appearance of increasing pain being mainly in the lower lobes. Airways are normal. PLEURA: Small right pleural effusion remains unchanged. HEART AND MEDIASTINUM: The thyroid gland is normal. No mediastinal, hilar or axillary lymphadenopathy. The heart is normal in size. There is no pericardial effusion. Mild calcifications of the mitral annulus. The thoracic aorta is unremarkable. The main pulmonary arteries enlarged measuring 3.6 cm in diameter. UPPER ABDOMEN: Unremarkable. BONES: The visualized bony thorax is within normal limits. SOFT TISSUES: Unremarkable. IMPRESSION: Worsening central and peripheral groundglass opacities with areas of septal thickening with unchanged small right pleural effusion. Differential diagnosis includes interval development of acute respiratory distress syndrome, progressive multifocal pneumonia, pulmonary alveolar proteinosis, or acute interstitial pneumonitis. Consider bronchoscopy with bronchoalveolar lavage and/or biopsy for final diagnosis. Signed by: Dr. Shelby Sandhu M.D. on 12/19/2017 1:10 PM
[2017-12-19] MEDS ORDERED: PROPOFOL IV EMULSION 10MG/ML 100 ML IV SCH (14:00)
[2017-12-19] MEDS ORDERED: MEROPENEM 500MG 500 MG in SODIUM CHLORIDE 0.9% 50ML 50 ML IV SCH (14:00)
[2017-12-19] MEDS ORDERED: PROPOFOL IV EMULSION 10MG/ML 100 ML ONE (14:03)
[2017-12-19 14:14] LABS: ABG PCO2 45 mmHg (41-51); ABG PH 7.39 (7.31-7.41)
[2017-12-19 14:15] LABS: ABG HCO3 27 mmol/L (23-28); ABG PO2 59 mmHg (80-105)
[2017-12-19] MEDS: MEROPENEM 500 MG VIAL IV SCH ×2 (15:00→21:30)
[2017-12-19] MEDS ORDERED: ENOXAPARIN SOD INJ 40 MG/0.4 ML SYR SC SCH (17:00)
[2017-12-19] MEDS ORDERED: SODIUM CHLORIDE 0.9% 250ML 250 ML IV SCH (18:00)
[2017-12-19] MEDS: DEXTROSE 5%/0.9% SOD CHL 1,000 ML IV SCH (18:15)
--- NOTE | 2017-12-19 18:32 | Consultation ---
DATE OF CONSULTATION: REASON FOR CONSULTATION: Pneumonia. HISTORY OF PRESENT ILLNESS: This patient is a very pleasant, unfortunate 67-year-old female who has history of hypertension, diabetes mellitus, morbidly obese patient. According to the family, more than a month ago, for 5-6 weeks she had some cough. She has been abdominal. She presented to the hospital she was diagnosed that she had small bowel obstruction and underwent abdominal surgery with hernia repair. She was discharged home. She was doing well. However, the cough persist and shortness of breath persists and got worse. The patient came back to the hospital and she was admitted about 11 days ago. The patient apparently was diagnosed with pulmonary embolism and pneumonia and apparently she was getting slightly better, but then she started to get worse and now she is intubated on day 11 from the hospitalization. Infectious disease was consulted. The patient has been here since then. She does have history of hypertension and diabetes. PAST SURGICAL HISTORY: As above. ALLERGIES: NKA. SOCIAL HISTORY: There is no smoking, no drug abuse or alcohol abuse. FAMILY HISTORY: Hypertension and diabetes. On admission, she had CT of the chest which showed evidence of centrally loculated small filling deficit, likely small pulmonary embolism. There was concern about atypical organism, diffuse alveolar hemorrhage. She was seen by critical care. She was given piperacillin, tazobactam for healthcare-associated pneumonia. She was on Lovenox. She had chest x-ray which showed 4 cm central pulmonary ground glass opacities with areas of septal thickening. She had a VQ scan that showed very low probability for acute pulmonary embolism. Her blood cultures have been negative. White count on admission 9.8, today 12.05, hemoglobin 9.1, hematocrit 29. Her platelets are 209,000. Sodium 139, potassium 3.8, creatinine 0.82. MEDICATIONS: She is on , meropenem, vancomycin, insulin. PHYSICAL EXAMINATION: GENERAL: She is intubated and sedated. VITALS: Temperature 100.0. She has been running fever since December 18, low fever. HEENT: Normocephalic. NECK: Supple. CHEST: Few crackles bilaterally. COR: S1 and S2, no murmur. ABDOMEN: Soft. Bowel sounds present. Obese. The wound looks really good. EXTREMITIES: No edema. IMPRESSION: Bilateral pulmonary infiltrates. Apparently, she has been sick for the last month or so with worsening severe bilateral central glass opacities. Differential diagnosis includes acute respiratory distress syndrome. Doubt pneumonia. May be alveolar proteinosis. I agree with the current choice of antibiotics. Will add azithromycin. Will check for legionella mycoplasma and chlamydia. Obtain sputum for cultures for AFB and fungal or ____ cytology. May want to consider bronchoscopy. Will discuss with Dr. Young. Discussed with the attending. Will follow with you. Job#: [id number] JED
--- NOTE | 2017-12-19 18:32 | Diagnostic Imaging Report ---
EXAMINATION: CHEST SINGLE (PORTABLE) INDICATION: \S\ARDS \S\[id number] \S\1735 COMPARISON: CT chest from 12/19/2017 FINDINGS: AP view TUBES and LINES: Interval intubation with tip 1.8 cm above the milly. NG/OG tube crossing the diaphragm. Tip not included in the exam. LUNGS: Low lung volumes with extensive bilateral alveolar interstitial airspace opacities. PLEURA: No pleural effusion or pneumothorax. HEART AND MEDIASTINUM: The cardiomediastinal silhouette is unremarkable.. BONES AND SOFT TISSUES: No acute osseous lesion. Soft tissues are unremarkable. UPPER ABDOMEN: No free air under the diaphragm. IMPRESSION: Persistent bilateral interstitial and alveolar airspace opacities as noted on recent CT chest. Signed by: Dr. Shelby Sandhu M.D. on 12/19/2017 6:28 PM
[2017-12-19] MEDS: MIDAZOLAM HCL 25 MG in SODIUM CHLORIDE 0.9% 50ML 45 ML IV PRN (21:58)
[2017-12-20] VITALS (92 sets, daily range): BP systolic 76–123; BP diastolic 42–86
[2017-12-20] MEDS: ACETAMINOPHEN 325 MG TAB PO PRN (01:21)
[2017-12-20] MEDS: MIDAZOLAM HCL 25 MG in SODIUM CHLORIDE 0.9% 50ML 45 ML IV PRN ×5 (02:06→23:44)
[2017-12-20] MEDS: INSULIN REGULAR, HUMAN 100 UNIT/1 ML 3ML VIAL SQ SCH ×5 (05:53→23:55)
[2017-12-20] MEDS: MEROPENEM 500 MG VIAL IV SCH ×3 (05:53→22:26)
[2017-12-20 06:21] LABS: BASOPHILS % 0.3 % (0.0-1.0); EOSINOPHILS # (AUTO) 0.2 (0.0-0.4); EOSINOPHILS % 2.1 % (0.0-6.0); LYMPHOCYTES # (AUTO) 0.6 (1.0-3.2); LYMPHOCYTES % 5.7 % (18.0-39.1); MEAN CORPUSCULAR HEMOGLOBIN 26.7 pg (28-32); MEAN CORPUSCULAR HGB CONC 30.8 g/dL (31-35); MEAN CORPUSCULAR VOLUME 86.7 fL (81-99); MONOCYTES # (AUTO) 0.8 (0.2-0.8); MONOCYTES % 7.4 % (4.4-11.3); NEUTROPHILS # (AUTO) 9.3 (2.1-6.9); NEUTROPHILS % 83.9 % (38.7-80.0); PLATELET COUNT 180 x10e3/uL (140-360); RED CELL DISTRIBUTION WIDTH 15.6 % (11.7-14.4)
[2017-12-20 06:44] LABS: ANION GAP 12.8 mmol/L (8-16); BUN/CREATININE RATIO 24 (6-25); CALCIUM 8.4 mg/dL (8.4-10.2); CARBON DIOXIDE 26 mmol/L (22-29); CHLORIDE 102 mmol/L (98-107); CREATININE, SERUM 0.85 mg/dL (0.57-1.11); EST GLOMERULAR FILTRATION RATE > 60 ML/MIN (60-); GLUCOSE 117 mg/dL (74-118); POTASSIUM 3.8 mmol/L (3.5-5.1); SODIUM 137 mmol/L (136-145)
[2017-12-20 06:45] LABS: BLOOD UREA NITROGEN 20 mg/dL (7-26)
--- NOTE | 2017-12-20 07:42 | Diagnostic Imaging Report ---
EXAMINATION: CHEST SINGLE (PORTABLE) INDICATION: \S\eval lines, lungs, heart \S\[id number] \S\0720 \S\Y COMPARISON: CT chest from 12/19/2017 and chest radiograph from 12/19/2017 1719 FINDINGS: AP view TUBES and LINES: Stable endotracheal tube with tip 1.8 cm above the milly. NG/OG can be followed to the diaphragm. There is no well-visualized due to underpenetration. LUNGS: Low lung volumes with extensive bilateral alveolar interstitial airspace opacities. PLEURA: No pleural effusion or pneumothorax. HEART AND MEDIASTINUM: The cardiomediastinal silhouette is unremarkable.. BONES AND SOFT TISSUES: No acute osseous lesion. Soft tissues are unremarkable. UPPER ABDOMEN: No free air under the diaphragm. IMPRESSION: Unchanged extensive bilateral interstitial and alveolar airspace opacities consistent with ARDS which may relate to sepsis or acute interstitial pneumonia. Severe influenza infection can have a similar appearance. Signed by: Dr. Shelby Sandhu M.D. on 12/20/2017 7:38 AM
[2017-12-20] MEDS: PANTOPRAZOLE 40 MG 10ML VIAL IV SCH ×2 (08:45→08:46)
[2017-12-20] MEDS: AZITHROMYCIN 250 MG TAB PO SCH (08:46)
[2017-12-20] MEDS: ATENOLOL 50 MG TAB PO SCH (08:46)
[2017-12-20] MEDS: BETAMETHASONE/CLOTRIMAZOLE CR 15 GM TUBE TOP SCH ×2 (08:46→17:57)
[2017-12-20] MEDS: OXYBUTYNIN CHLORIDE 5 MG TAB PO SCH (08:46)
[2017-12-20] MEDS: FLUCONAZOLE 100 MG TAB PO SCH (08:46)
[2017-12-20] MEDS: SERTRALINE HCL 50 MG TAB PO SCH (08:46)
[2017-12-20 08:57] LABS: ABG HCO3 29 mmol/L (23-28); ABG PCO2 49 mmHg (41-51); ABG PH 7.37 (7.31-7.41); ABG PO2 83 mmHg (80-105)
[2017-12-20] MEDS: DEXTROSE 5%/0.9% SOD CHL 1,000 ML IV SCH (09:25)
--- NOTE | 2017-12-20 10:52 | Diagnostic Imaging Report ---
EXAMINATION: CHEST SINGLE (PORTABLE) INDICATION: \S\repeat am chest xray \S\[id number] \S\1035 COMPARISON: Chest radiograph from 12/20/[address] chest from 12/19/2017 FINDINGS: AP view TUBES and LINES: Stable endotracheal tube with tip 1.8 cm above the milly. NG/OG no well-visualized. LUNGS: Low lung volumes with slightly decreased bilateral alveolar interstitial airspace opacities. PLEURA: No pleural effusion or pneumothorax. HEART AND MEDIASTINUM: The cardiomediastinal silhouette is unremarkable.. BONES AND SOFT TISSUES: No acute osseous lesion. Soft tissues are unremarkable. UPPER ABDOMEN: No free air under the diaphragm. IMPRESSION: Slightly improvement in extensive bilateral interstitial and alveolar airspace opacities. Signed by: Dr. Shelby Sandhu M.D. on 12/20/2017 10:48 AM
[2017-12-20] MEDS: VANCOMYCIN 1GM/NS 250 ML 250 ML IV SCH (11:25)
[2017-12-20] MEDS ORDERED: FENTANYL CITRATE INJ 2,000 MCG in SODIUM CHLORIDE 0.9% 250ML 210 ML IV PRN (12:15)
[2017-12-20] MEDS: AZITHROMYCIN 500MG/NS 250 ML 250 ML IV SCH ×2 (12:15→14:29)
[2017-12-20] MEDS ORDERED: HYDROMORPHONE 20MG/ NS 100ML IV PRN (13:15)
[2017-12-20] MEDS ORDERED: HYDROMORPHONE 100 ML IV PRN (13:15)
[2017-12-20] MEDS: HYDROMORPHONE 100 ML IV PRN ×2 (13:45→23:12)
--- NOTE | 2017-12-20 15:03 | Diagnostic Imaging Report ---
EXAMINATION: CHEST XRAY LINE PLACEMENT INDICATION: \S\picc line \S\[id number] \S\1435 COMPARISON: Chest radiograph from 12/20/2017 10:25 AM FINDINGS: AP view TUBES and LINES: Interval placement of a right PICC with tip overlying the cavoatrial junction. Endotracheal and NG/OG tube remain stable. LUNGS: extensive bilateral interstitial and alveolar airspace opacities, unchanged. PLEURA: No pleural effusion or pneumothorax. HEART AND MEDIASTINUM: The cardiomediastinal silhouette is unremarkable.. BONES AND SOFT TISSUES: No acute osseous lesion. Soft tissues are unremarkable. UPPER ABDOMEN: No free air under the diaphragm. IMPRESSION: Right PICC with tip overlying the cavoatrial junction. Stable extensive bilateral interstitial and alveolar airspace opacities. Signed by: Dr. Shelby Sandhu M.D. on 12/20/2017 3:00 PM
[2017-12-20] MEDS ORDERED: SUCCINYLCHOLINE CHLORIDE 20 MG/ML 10ML VIAL ONE (15:17)
[2017-12-20] MEDS ORDERED: ETOMIDATE 40 MG/ 20ML VIAL IV ONE (15:17)
[2017-12-20 16:22] LABS: ABG HCO3 28 mmol/L (23-28); ABG PCO2 48 mmHg (41-51); ABG PH 7.38 (7.31-7.41); ABG PO2 66 mmHg (80-105)
[2017-12-20] MEDS ORDERED: SODIUM CHLORIDE 0.9% 250ML 250 ML IV NR ×2 (17:00→18:45)
--- NOTE | 2017-12-20 17:57 | Diagnostic Imaging Report ---
EXAMINATION: CHEST SINGLE (PORTABLE) INDICATION: \S\irregular breathing pattern \S\[id number] \S\1735 COMPARISON: Chest radiograph from 12/20/2017 1724 hours FINDINGS: AP view TUBES and LINES: Suboptimal evaluation of the right PICC which can be seen to the level of the high SVC due to underpenetration. Endotracheal tube is now well visualized. NG/OG tube remain stable. Consider repeat x-ray with better penetration for evaluation of tubes and lines. LUNGS: extensive bilateral interstitial and alveolar airspace opacities, unchanged. PLEURA: No pleural effusion or pneumothorax. HEART AND MEDIASTINUM: The cardiomediastinal silhouette is unremarkable.. BONES AND SOFT TISSUES: No acute osseous lesion. Soft tissues are unremarkable. UPPER ABDOMEN: No free air under the diaphragm. IMPRESSION: Suboptimal evaluation of tubes and lines due to underpenetration. Consider repeat. Stable extensive bilateral interstitial and alveolar airspace opacities. Signed by: Dr. Shelby Sandhu M.D. on 12/20/2017 5:54 PM
[2017-12-20] MEDS ORDERED: ACETAMINOPHEN 325 MG TAB PO STA (18:32)
[2017-12-20] MEDS ORDERED: ACETAMINOPHEN 325 MG TAB PO NR (20:00)
[2017-12-20] MEDS ORDERED: SODIUM CHLORIDE 0.9% 250ML 250 ML ONE (22:34)
[2017-12-21] VITALS (116 sets, daily range): BP systolic 63–114; BP diastolic 36–75
--- NOTE | 2017-12-21 01:21 | Progress Note ---
DATE: Ms. Coreas remains in the ICU on the ventilator. On her vent settings, she is a little bit worse today, needing more FiO2. PHYSICAL EXAMINATION VITAL SIGNS: Her vitals are stable. Temperature 99.1, heart rate 102, respirations of 23 on a mechanical ventilator with pulse oximetry of 94. She had a T-max of 100.6 yesterday. Earlier she had 101.4. HEENT: Normocephalic. NECK: No JVD. CHEST: Few crackles at the bases. COR: S1, S2. ABDOMEN: Soft, morbidly obese. EXTREMITIES: No edema. SKIN: There is no rash. LABS: Her blood cultures and sputum cultures remain negative so far. Her white count is 11.05, hemoglobin of 8, hematocrit 26, and she has platelets of 180,000. Her sodium 137, potassium 3.8, and creatinine 0.85. IMPRESSIONS 1. ARDS, and I think the fever is secondary to ARDS. 2. Pneumonia, probably bacterial, although we do not have pathology. 3. Respiratory failure. 4. Morbidly obese patient. PLAN 1. To continue with the current antibiotic. 2. Bronchoscopy to be done in the morning. 3. Discussed with the family. 4. Prognosis is guarded. 5. Recheck CBC, recheck chem panel. Will follow with you. Job#: [id number]
[2017-12-21] MEDS: MIDAZOLAM HCL 25 MG in SODIUM CHLORIDE 0.9% 50ML 45 ML IV PRN ×2 (02:05→07:49)
[2017-12-21] MEDS: DEXTROSE 5%/0.9% SOD CHL 1,000 ML IV SCH ×2 (04:22→08:53)
[2017-12-21] MEDS: NOREPINEPHRINE BITARTRATE/ NS 250 ML IV PRN ×2 (04:23→19:00)
[2017-12-21] MEDS: MEROPENEM 500 MG VIAL IV SCH ×3 (05:35→21:53)
[2017-12-21] MEDS: INSULIN REGULAR, HUMAN 100 UNIT/1 ML 3ML VIAL SQ SCH ×3 (05:35→17:20)
--- NOTE | 2017-12-21 05:54 | Diagnostic Imaging Report ---
EXAM: CHEST SINGLE (PORTABLE), AP 1 view INDICATION: Pneumonia COMPARISON: AP view of the chest December 20, 2017 FINDINGS: LINES/TUBES: Endotracheal tube and nasal/orogastric tube and right approach PICC are in stable position given rotated exam. LUNGS: Diffuse bilateral airspace opacities. PLEURA: Indeterminate HEART AND MEDIASTINUM: Incompletely evaluated secondary to rotation. BONES AND SOFT TISSUES: No acute findings. IMPRESSION: Exam significantly limited due to rotation. Grossly stable exam. Signed by: Dr. Jazmine Prather M.D. on 12/21/2017 5:51 AM
[2017-12-21 06:19] LABS: BASOPHILS # (AUTO) 0.1 (0.0-0.1); BASOPHILS % 0.3 % (0.0-1.0); EOSINOPHILS # (AUTO) 0.4 (0.0-0.4); EOSINOPHILS % 1.8 % (0.0-6.0); HEMATOCRIT 31.1 % (34.2-44.1); HEMOGLOBIN 9.2 g/dL (12.0-16.0); LYMPHOCYTES # (AUTO) 1.1 (1.0-3.2); LYMPHOCYTES % 5.6 % (18.0-39.1); MEAN CORPUSCULAR HEMOGLOBIN 26.9 pg (28-32); MEAN CORPUSCULAR HGB CONC 29.6 g/dL (31-35); MEAN CORPUSCULAR VOLUME 90.9 fL (81-99); MONOCYTES # (AUTO) 1.5 (0.2-0.8); MONOCYTES % 7.6 % (4.4-11.3); NEUTROPHILS # (AUTO) 16.3 (2.1-6.9); NEUTROPHILS % 83.7 % (38.7-80.0); PLATELET COUNT 268 x10e3/uL (140-360); RED BLOOD COUNT 3.42 x10e6/uL (3.6-5.1); RED CELL DISTRIBUTION WIDTH 15.7 % (11.7-14.4)
[2017-12-21 06:47] LABS: ANION GAP 12.8 mmol/L (8-16); CALCIUM 7.2 mg/dL (8.4-10.2); CREATININE, SERUM 1.01 mg/dL (0.57-1.11); POTASSIUM 3.8 mmol/L (3.5-5.1)
[2017-12-21 07:06] LABS: FOLATE 5.9 ng/mL (7.0-15.4)
[2017-12-21 07:26] LABS: FERRITIN 780.1 ng/mL (4.63-204.00); FREE T4 (FREE THYROXINE) 0.94 ng/dL (0.9-1.8); THYROID STIMULATING HORMONE 0.197 uIU/mL (0.350-4.940)
[2017-12-21] MEDS: HYDROMORPHONE 100 ML IV PRN (07:51)
[2017-12-21] MEDS: PANTOPRAZOLE 40 MG 10ML VIAL IV SCH ×2 (08:50)
[2017-12-21] MEDS: BETAMETHASONE/CLOTRIMAZOLE CR 15 GM TUBE TOP SCH ×2 (08:59→17:04)
[2017-12-21] MEDS: CYANOCOBALAMIN INJ 1,000 MCG/ML VIAL IM SCH (09:45)
[2017-12-21] MEDS ORDERED: ROCURONIUM BROMIDE 10 MG/ML 5ML VIAL IV PRN (10:30)
[2017-12-21] MEDS: VANCOMYCIN 1GM/NS 250 ML 250 ML IV SCH ×2 (10:35→23:00)
[2017-12-21] MEDS ORDERED: ACETAMINOPHEN 325 MG TAB PO PRN (11:30)
[2017-12-21] MEDS ORDERED: ACETAMINOPHEN 325 MG SUPP PR PRN (11:30)
[2017-12-21] MEDS: AZITHROMYCIN 500MG/NS 250 ML 250 ML IV SCH (12:34)
[2017-12-21 12:40] LABS: ABG PCO2 66 mmHg (41-51); ABG PH 7.21 (7.31-7.41); ABG PO2 71 mmHg (80-105)
[2017-12-21 12:41] LABS: ABG HCO3 27 mmol/L (23-28)
[2017-12-21] MEDS ORDERED: LIDOCAINE HCL 2% 30 ML TUBE ONE (13:29)
[2017-12-21] MEDS ORDERED: LIDOCAINE HCL 4% 50 ML BTL ONE (13:29)
[2017-12-21] MEDS: LEVALBUTEROL HCL SOLN NEBU 1.25 MG/3 ML NEB INH PRN (16:00)
[2017-12-21] MEDS ORDERED: ACETAMINOPHEN 1000 MG/100 ML 100 ML IV ONE (16:00)
--- NOTE | 2017-12-21 16:14 | Operative Report ---
DATE OF PROCEDURE: PROCEDURE PERFORMED: Bronchoscopy with bronchoalveolar lavage. PREPROCEDURE DIAGNOSIS: Acute hypoxic respiratory failure and acute respiratory distress syndrome. POSTPROCEDURE DIAGNOSIS: Likely pneumonia. DETAILS OF THE PROCEDURE: The patient was given 25 mg of rocuronium, and she was already on IV Versed. The bronchoscope was advanced through the ET tube. The milly was identified. The right lung was entered. The right upper lobe, middle lobe and lower lobe were examined. The right upper lobe had thin, clear secretions. The right lower lobe and middle lobe had some purulent secretions, which were suctioned clean and sampled. BAL was done from the right middle lobe. The left upper lung was examined to the segmental level. The left upper lobe, lingula and lower lobe were all within normal limits, and no endobronchial lesion was seen on either side. Thin secretions were seen on the left lung. Job#: [id number]
[2017-12-21 16:28] LABS: BODY FLUID APPEARANCE CLOUDY
[2017-12-21 16:43] LABS: BODY FLUID TYPE PLEURAL; RBC,BODY FLUID 31 cells/uL; WBC,BODY FLUID 829 cells/uL
[2017-12-21] MEDS ORDERED: MICAFUNGIN SODIUM 50 MG/50 ML BAG IV ONE (16:45)
[2017-12-21] MEDS ORDERED: MICAFUNGIN SODIUM 100 ML IV ONE (16:47)
--- NOTE | 2017-12-21 16:58 | Diagnostic Imaging Report ---
PROCEDURE: A single AP view of the chest. COMPARISON: Same day at 5:29 AM INDICATIONS: ETT PLACEMENT FINDINGS: Limited by body habitus. Lines/tubes: Endotracheal tube in place with tip approximately 3 cm above milly. Nasogastric tube in place with tip extending beyond the inferior margin of the film. Right PICC. Lungs and pleura: Unchanged diffuse airspace opacities. No visible pneumothorax Heart and mediastinum: Enlarged cardiac silhouette. Bones: No acute bony abnormality. IMPRESSION: Unchanged diffuse bilateral air space opacities, representing edema and/or pneumonia. Endotracheal tube in place with tip approximately 3 cm above milly. Possible small bilateral pleural effusions. Dictated by: Ricardo Espinal M.D. on 12/21/2017 at 16:58 Electronically approved by: Ricardo Espinal M.D. on 12/21/2017 at 16:58
[2017-12-21 17:43] LABS: LYMPHOCYTES,BODY FLUID 11 %; MONO/MACROPHG,BODY FLUID 3 %; NEUTROPHILS,BODY FLUID 86 %
[2017-12-21] MEDS ORDERED: ACETAMINOPHEN 1000 MG/100 ML IV PRN (18:00)
[2017-12-21] MEDS ORDERED: ACETAMINOPHEN 1000 MG/100 ML IV SCH (18:00)
[2017-12-21] MEDS ORDERED: SODIUM CHLORIDE 0.9% 1000ML 1,000 ML IV ONE (18:30)
[2017-12-21] MEDS ORDERED: SODIUM CHLORIDE 0.9% 1000ML 1,000 ML ONE (18:36)
[2017-12-21] MEDS: SODIUM CHLORIDE 0.9% 1000ML 1,000 ML IV SCH (18:53)
[2017-12-21] MEDS: VASOPRESSIN 100 UNIT in DEXTROSE 5% 100ML 95 ML IV SCH (19:45)
[2017-12-21] MEDS: FLUCONAZOLE 200 MG/100 ML 100 ML IV SCH (21:53)
[2017-12-22] VITALS (89 sets, daily range): BP systolic 84–141; BP diastolic 29–87
[2017-12-22 00:53] LABS: ABG HCO3 24 mmol/L (23-28); ABG PCO2 64 mmHg (41-51); ABG PH 7.18 (7.31-7.41); ABG PO2 75 mmHg (80-105)
[2017-12-22 00:59] LABS: ABG HCO3 22 mmol/L (23-28); ABG PCO2 53 mmHg (41-51); ABG PH 7.23 (7.31-7.41); ABG PO2 65 mmHg (80-105)
[2017-12-22] MEDS: MIDAZOLAM HCL 25 MG in SODIUM CHLORIDE 0.9% 50ML 45 ML IV PRN ×6 (02:05→23:28)
[2017-12-22] MEDS: INSULIN REGULAR, HUMAN 100 UNIT/1 ML 3ML VIAL SQ SCH ×5 (06:00→23:24)
[2017-12-22 06:06] LABS: BASOPHILS # (AUTO) 0.1 (0.0-0.1); BASOPHILS % 0.5 % (0.0-1.0); EOSINOPHILS # (AUTO) 0.1 (0.0-0.4); EOSINOPHILS % 0.5 % (0.0-6.0); HEMATOCRIT 33.3 % (34.2-44.1); LYMPHOCYTES % 6.6 % (18.0-39.1); MEAN CORPUSCULAR HEMOGLOBIN 27.2 pg (28-32); MEAN CORPUSCULAR VOLUME 90.5 fL (81-99); MONOCYTES % 6.5 % (4.4-11.3); NEUTROPHILS # (AUTO) 13.1 (2.1-6.9); NEUTROPHILS % 85.2 % (38.7-80.0); PLATELET COUNT 203 x10e3/uL (140-360); RED BLOOD COUNT 3.68 x10e6/uL (3.6-5.1); RED CELL DISTRIBUTION WIDTH 15.9 % (11.7-14.4)
[2017-12-22] MEDS: MEROPENEM 500 MG VIAL IV SCH ×3 (07:33→21:12)
[2017-12-22] MEDS: LEVALBUTEROL HCL SOLN NEBU 1.25 MG/3 ML NEB INH PRN ×3 (07:40→19:20)
[2017-12-22] MEDS: SODIUM CHLORIDE 0.9% 1000ML 1,000 ML IV SCH ×3 (08:31→22:44)
[2017-12-22 08:32] LABS: ANION GAP 17.1 mmol/L (8-16)
[2017-12-22 08:36] LABS: POTASSIUM 5.1 mmol/L (3.5-5.1)
[2017-12-22 08:37] LABS: CREATININE, SERUM 1.55 mg/dL (0.57-1.11)
--- NOTE | 2017-12-22 08:54 | Diagnostic Imaging Report ---
PROCEDURE: A single AP view of the chest. COMPARISON: Patients [facility], DX, CHEST SINGLE (PORTABLE), 12/21/2017, 16:03. INDICATIONS: INTUBATED FINDINGS: Lines/tubes: Endotracheal tube, nasogastric tube and right PICC is unchanged. Lungs: Diffuse pulmonary edema unchanged. Pleura: There is no pleural effusion or pneumothorax. Heart and mediastinum: The heart remains enlarged. Bones: No acute bony abnormality. IMPRESSION: No significant interval change with diffuse pulmonary edema. Austin Arvizu D.O. Dictated by: Austin Arvizu D.O. on 12/22/2017 at 8:53 Electronically approved by: Austin Arvizu D.O. on 12/22/2017 at 8:53
[2017-12-22] MEDS: CYANOCOBALAMIN INJ 1,000 MCG/ML VIAL IM SCH ×2 (09:00→09:16)
--- NOTE | 2017-12-22 09:14 | Consultation ---
DATE OF CONSULTATION: December 21, 2017 CONSULTATION TO: Dr. Dwain Tinajero PRIMARY CARE PHYSICIAN: Donny Zamora MD, outside this institution. Beatriz Coreas is a 67-year-old female who was referred to me for evaluation of anemia. No history could be obtained. Most of the history has been obtained by my personal communication with the family as well as review of all the records dictated by different physicians. The patient evidently has had shortness of breath. She had recovered from abdominal hernia surgery because of bowel obstruction. The patient subsequently progressed to bilateral infiltrates in the lung which required intubation. At the present time on review, the patient has been on 100% FiO2 and a PEEP of 10. SOCIAL HISTORY: Noncontributory. FAMILY HISTORY: Noncontributory. ALLERGIES: REPORTED NONE. MEDICATIONS 1. Levalbuterol. 2. Midazolam. 3. Normal saline. 4. Zithromax. 5. Norepinephrine. 6. Vancomycin. 7. Dextrose. 8. Diphenhydramine. 9. Meropenem. 10. Protonix. 11. Insulin. 12. Cyanocobalamin. 13. Rocuronium. 14. Tylenol. REVIEW OF SYSTEMS HEENT: Normal. CARDIAC: History of hypertension. RESPIRATORY: At the present time intubated with bilateral infiltrates in the lung. GI: Normal. : Normal. MUSCULOSKELETAL: Normal. SKIN AND BREASTS: Normal. NEUROENDOCRINE: History of diabetes mellitus. PHYSICAL EXAMINATION GENERAL: A morbidly obese female intubated on vasopressors. HEART: Tachycardic at 110. LUNGS: Coarse crepitations. ABDOMEN: Obese. RECTAL AND VAGINAL: Examination could not be done. CENTRAL NERVOUS SYSTEM: Could not be done. LABORATORY DATA: Labs which have prompted this consultation show a hemoglobin of 9.2, hematocrit 31.1, WBC 19.4, platelets of 268,000. INR 1.3. Bilirubin 0.7, SGOT 19, SGPT 11, alkaline phosphatase 77. Sodium 135, potassium 3.8, chloride 103, CO2 23, BUN 24, creatinine 1.0. B12 level low at 103. Folic acid level low. D-dimer is high. Chest x-ray reveals the patient to have bilateral infiltrates, perhaps bilateral small pleural effusions. IMPRESSION 1. Status post intubation. 2. Respiratory failure. 3. Bilateral bronchial pneumonia, possibly viral as all the cultures so far are negative. 4. Morbid obesity. 5. History of abdominal surgery, hernia repair and bowel obstruction. 6. History of hypertension. 7. History of diabetes mellitus. 8. Possible acute respiratory distress syndrome. 9. Status post bronchoalveolar lavage for obtaining appropriate cultures. 10. Iron deficiency anemia (MCHC low at 29.5). 11. Leukemoid reaction. 12. Pernicious anemia. 13. Folic acid deficiency. 14. High D-dimer. PLAN, COMMENTS AND SUGGESTIONS: Continue support. B12 1,000 mcg subcutaneous daily. Folic acid 1 mg IM daily. Pulmonary embolus prophylaxis is suggested. The V/Q scan of this patient was reported low probability. However, because of the high D-dimer, since she is intubated, highly suggest either Lovenox prophylaxis or Arixtra prophylaxis. I have discussed at length with the patient's family 14 comorbidities. They asked me the question "What is the mortality?" I quoted that if this is septic shock, mortality with septic shock is 50% and the usual calculation is to add 10% increment in mortality depending on the comorbidities. Since she has "14 comorbidities," she has an extremely high probability of and not recovery. The patient's family still has not decided what they want. They still want full code. I will confine myself to hematology. Job#: [id number] cc:MD KELSEY GUNDERSON MD JAMES TRAN, MD ABIEL GARCIA, MD MUHAMMAD FAISAL, M.D.
[2017-12-22] MEDS: PANTOPRAZOLE 40 MG 10ML VIAL IV SCH (09:17)
[2017-12-22] MEDS: BETAMETHASONE/CLOTRIMAZOLE CR 15 GM TUBE TOP SCH ×2 (09:29→17:32)
[2017-12-22] MEDS: FOLIC ACID 5 MG/ML VIAL IM SCH (09:29)
[2017-12-22] MEDS ORDERED: LACTATED RINGER'S 1,000 ML IV ONE (10:00)
[2017-12-22 10:17] LABS: ABG PCO2 59 mmHg (41-51); ABG PO2 54 mmHg (80-105)
[2017-12-22 10:18] LABS: ABG HCO3 23 mmol/L (23-28)
[2017-12-22] MEDS ORDERED: NACL IV ONE (10:30)
[2017-12-22] MEDS ORDERED: HETASTARCH IV ONE (10:30)
[2017-12-22] MEDS: METHYLPREDNISOLONE SOD SUCC 40 MG/ML VIAL IV SCH ×2 (11:07→17:32)
[2017-12-22] MEDS: VANCOMYCIN 1GM/NS 250 ML 250 ML IV SCH ×2 (11:08→22:44)
[2017-12-22] MEDS: AZITHROMYCIN 500MG/NS 250 ML 250 ML IV SCH (13:30)
[2017-12-22] MEDS: NOREPINEPHRINE BITARTRATE/ NS 250 ML IV PRN (15:06)
[2017-12-22] MEDS: ACETAMINOPHEN 1000 MG/100 ML IV PRN ×2 (15:08→21:17)
[2017-12-22] MEDS: VASOPRESSIN 100 UNIT in DEXTROSE 5% 100ML 95 ML IV SCH (19:15)
[2017-12-22] MEDS: FLUCONAZOLE 200 MG/100 ML 100 ML IV SCH (20:27)
[2017-12-22] MEDS ORDERED: VASOPRESSIN 100 UNIT in DEXTROSE 5% 100ML 95 ML IV PRN (20:30)
[2017-12-22 23:47] LABS: BILIRUBIN,URINE 1+ (NEGATIVE); KETONES,URINE NEGATIVE (NEGATIVE); LEUKOCYTE ESTERASE ,URINE NEGATIVE (NEGATIVE); NITRITE,URINE NEGATIVE (NEGATIVE); URINE UROBILINOGEN 1 mg/dL (0.2 - 1)
[2017-12-22 23:48] LABS: CLARITY,URINE SL CLOUDY (CLEAR); COLOR,URINE YELLOW (YELLOW); PROTEIN,URINE DIPSTICK 1+ (NEGATIVE)
[2017-12-22 23:54] LABS: AMORPHOUS SEDIMENT,URINE FEW (FEW); BACTERIA,URINE MODERATE /HPF; EPITHELIAL CELLS,URINE RARE /LPF
[2017-12-23] VITALS (100 sets, daily range): BP systolic 83–144; BP diastolic 50–87
[2017-12-23 00:04] LABS: TOTAL PROTEIN, URINE 73.9 mg/dL (1-14)
[2017-12-23 00:07] LABS: SODIUM,URINE < 20 mmol/L
[2017-12-23 00:23] LABS: EOSINOPHIL SMEAR,URINE NONE SEEN (NONE SEEN)
[2017-12-23] MEDS: NOREPINEPHRINE BITARTRATE/ NS 250 ML IV PRN (00:24)
[2017-12-23] MEDS: MIDAZOLAM HCL 25 MG in SODIUM CHLORIDE 0.9% 50ML 45 ML IV PRN ×6 (03:27→21:21)
[2017-12-23] MEDS: INSULIN REGULAR, HUMAN 100 UNIT/1 ML 3ML VIAL SQ SCH ×4 (05:54→23:06)
[2017-12-23] MEDS: MEROPENEM 500 MG VIAL IV SCH ×3 (05:54→21:15)
[2017-12-23 06:19] LABS: BASOPHILS % 0.1 % (0.0-1.0); HEMOGLOBIN 9.7 g/dL (12.0-16.0); LYMPHOCYTES # (AUTO) 0.7 (1.0-3.2); LYMPHOCYTES % 7.1 % (18.0-39.1); MEAN CORPUSCULAR HEMOGLOBIN 26.9 pg (28-32); MEAN CORPUSCULAR HGB CONC 30.3 g/dL (31-35); MEAN CORPUSCULAR VOLUME 88.9 fL (81-99); MONOCYTES # (AUTO) 0.6 (0.2-0.8); MONOCYTES % 6.8 % (4.4-11.3); NEUTROPHILS % 85.3 % (38.7-80.0); PLATELET COUNT 162 x10e3/uL (140-360); RED CELL DISTRIBUTION WIDTH 15.6 % (11.7-14.4)
[2017-12-23 06:45] LABS: ALBUMIN 1.7 g/dL (3.5-5.0); ALBUMIN/GLOBULIN RATIO 0.4 (0.8-2.0); CALCIUM 7.9 mg/dL (8.4-10.2); CREATININE, SERUM 1.31 mg/dL (0.57-1.11)
--- NOTE | 2017-12-23 06:48 | Diagnostic Imaging Report ---
EXAMINATION: CHEST SINGLE (PORTABLE) INDICATION: Ventilation. COMPARISON: 12/22/2017 FINDINGS: TUBES and LINES: Endotracheal tube 5.2 cm above the milly. NG tube and right upper extremity PICC line are stable in good position. LUNGS: Lungs are well inflated. Mild interval improvement in appearance of airspace disease and interlobular septi thickening bilaterally PLEURA: Small bilateral pleural effusion HEART AND MEDIASTINUM: Cardiac size is severely enlarged. There are atherosclerotic calcifications within the aorta. BONES AND SOFT TISSUES: No acute osseous lesion. Soft tissues are unremarkable. UPPER ABDOMEN: No free air under the diaphragm. IMPRESSION: Minimal improvement in interstitial edema and airspace disease Signed by: Dr. Sin Reed M.D. on 12/23/2017 6:44 AM
[2017-12-23] MEDS: LEVALBUTEROL HCL SOLN NEBU 1.25 MG/3 ML NEB INH PRN (07:00)
[2017-12-23] MEDS: CYANOCOBALAMIN INJ 1,000 MCG/ML VIAL IM SCH (09:09)
[2017-12-23] MEDS: PANTOPRAZOLE 40 MG 10ML VIAL IV SCH (09:09)
[2017-12-23] MEDS: FOLIC ACID 5 MG/ML VIAL IM SCH (09:09)
[2017-12-23] MEDS: FONDAPARINUX SODIUM 2.5 MG/0.5 ML SYR SQ SCH (09:09)
[2017-12-23] MEDS: METHYLPREDNISOLONE SOD SUCC 40 MG/ML VIAL IV SCH ×2 (09:09→16:54)
[2017-12-23] MEDS: BETAMETHASONE/CLOTRIMAZOLE CR 15 GM TUBE TOP SCH ×2 (09:09→16:54)
[2017-12-23] MEDS: SODIUM CHLORIDE 0.9% 1000ML 1,000 ML IV SCH (09:44)
[2017-12-23 10:04] LABS: ABG HCO3 23 mmol/L (23-28); ABG PCO2 41 mmHg (41-51); ABG PH 7.36 (7.31-7.41); ABG PO2 113 mmHg (80-105)
--- NOTE | 2017-12-23 10:37 | Consultation ---
DATE OF CONSULTATION: REASON FOR CONSULTATION: Increased creatinine. This is a 67-year-old female who was admitted and had abdominal surgery secondary to small bowel obstruction and abdominal hernia repair. The patient had pneumonia afterwards and on Thursday had respiratory failure and was intubated. Currently, she is hypotensive on pressors with increased creatinine. SOCIAL HISTORY: Noncontributory. FAMILY HISTORY: Noncontributory. ALLERGIES: NEGATIVE. SOCIAL HISTORY: No smoking, no alcohol and no drugs. PAST MEDICAL HISTORY: 1. Morbid obesity. 2. Hypertension. 3. Type 2 diabetes mellitus. PAST SURGICAL HISTORY: Hernia repair. REVIEW OF SYSTEMS: Unable to get from the patient. PHYSICAL EXAMINATION VITAL SIGNS: Blood pressure 110/48, pulse 95, pulse oximetry 90%. GENERAL: The patient has been intubated. HEENT: Pupils equal and reactive to light and accommodation. NECK: No JVD, no bruits. LUNGS: Rhonchi. No rales. HEART: Regular rate and rhythm. No S3, no S4. ABDOMEN: Nontender, nondistended. No hepatomegaly or splenomegaly. EXTREMITIES: No clubbing, no cyanosis, no edema. NEUROLOGIC: The patient is on a ventilator. CT of the lungs demonstrated bilateral multilobar pneumonia on 12/11. Last chest x-ray on 12/22 demonstrated no significant changes with diffuse pulmonary edema. LABORATORY DATA: White count 15.38, down from 19.4, up from 7.8 on 12/15. Hemoglobin 10, platelets 203,000. Sodium 143, potassium 5.1, chloride 111, creatinine 1.55, BUN 43. Creatinine is up from 1.01 and from 0.85. Vancomycin trough is 12 on 12/21 and was less than 2 on 12/20. HALINA negative. C-ANCA and P-ANCA pending. Pneumonia and influenza testing is pending. Urinalysis, last one on December 10. ASSESSMENT AND PLAN: Acute renal failure, most likely acute tubular necrosis, but we also need to think of antibiotic induced, but at this time I think this is more consistent with acute tubular necrosis. We will check fractional secretion of sodium. We will also check urine eosinophils. I do think that vancomycin will probably need to be adjusted. We are waiting for levels tomorrow. For now, we will continue supportive care. Will continue antibiotics. Urine output has improved with improved blood pressure. I did discuss the case in detail with family member. In short, acute tubular necrosis, multifactorial, most likely secondary to hypertension and possible sepsis. The patient is currently in multiorgan failure. KENNEDY BRIGGS MD Job#: [id number] GH
[2017-12-23] MEDS: VANCOMYCIN 1GM/NS 250 ML 250 ML IV SCH ×2 (11:45→23:02)
[2017-12-23] MEDS: AZITHROMYCIN 500MG/NS 250 ML 250 ML IV SCH (12:15)
[2017-12-23] MEDS: SODIUM CHLORIDE 0.45% 1,000 ML IV SCH (15:42)
[2017-12-23] MEDS: FLUCONAZOLE 200 MG/100 ML 100 ML IV SCH (19:36)
[2017-12-24] VITALS (90 sets, daily range): BP systolic 92–124; BP diastolic 56–71
[2017-12-24] MEDS: SODIUM CHLORIDE 0.45% 1,000 ML IV SCH (00:20)
[2017-12-24 00:30] LABS: CREATININE,URINE RANDOM 107.79 mg/dL (47-110)
[2017-12-24] MEDS: MEROPENEM 500 MG VIAL IV SCH ×4 (02:00→22:17)
[2017-12-24] MEDS: MIDAZOLAM HCL 25 MG in SODIUM CHLORIDE 0.9% 50ML 45 ML IV PRN ×2 (02:00→08:26)
[2017-12-24] MEDS: INSULIN REGULAR, HUMAN 100 UNIT/1 ML 3ML VIAL SQ SCH ×4 (05:40→23:59)
[2017-12-24 07:26] LABS: HEMATOCRIT 28.7 % (34.2-44.1); HEMOGLOBIN 8.7 g/dL (12.0-16.0); LYMPHOCYTES # (AUTO) 0.4 (1.0-3.2); LYMPHOCYTES % 8.8 % (18.0-39.1); MEAN CORPUSCULAR HEMOGLOBIN 27.2 pg (28-32); MEAN CORPUSCULAR HGB CONC 30.3 g/dL (31-35); MEAN CORPUSCULAR VOLUME 89.7 fL (81-99); MONOCYTES # (AUTO) 0.3 (0.2-0.8); MONOCYTES % 6.7 % (4.4-11.3); NEUTROPHILS # (AUTO) 3.7 (2.1-6.9); NEUTROPHILS % 84.1 % (38.7-80.0); PLATELET COUNT 121 x10e3/uL (140-360); RED CELL DISTRIBUTION WIDTH 15.8 % (11.7-14.4)
[2017-12-24 07:58] LABS: ANION GAP 10.1 mmol/L (8-16); CALCIUM 7.8 mg/dL (8.4-10.2); CREATININE, SERUM 0.96 mg/dL (0.57-1.11); POTASSIUM 5.1 mmol/L (3.5-5.1)
--- NOTE | 2017-12-24 08:40 | Diagnostic Imaging Report ---
PROCEDURE:CHEST SINGLE (PORTABLE) TECHNIQUE:Portable AP chest INDICATION:Pneumonia COMPARISON:Patients [facility], DX, CHEST SINGLE (PORTABLE), 12/23/2017, 5:35. FINDINGS: See conclusion. CONCLUSION: 1. Enteric tube tip at the gastric body. 2. Right PICC terminating in the SVC. 3. Persistent bilateral airspace opacities consistent with pulmonary edema with or without superimposed pneumonia. No cavitation. 4. Small pleural effusions. 5. Stable cardiomegaly. Dictated by: Cj Ruiz M.D. on 12/24/2017 at 8:40 Electronically approved by: Cj Ruiz M.D. on 12/24/2017 at 8:40
[2017-12-24] MEDS: FOLIC ACID 5 MG/ML VIAL IM SCH (09:30)
[2017-12-24] MEDS: METHYLPREDNISOLONE SOD SUCC 40 MG/ML VIAL IV SCH ×2 (09:40→16:46)
[2017-12-24] MEDS: CYANOCOBALAMIN INJ 1,000 MCG/ML VIAL IM SCH (09:40)
[2017-12-24] MEDS: PANTOPRAZOLE 40 MG 10ML VIAL IV SCH (09:40)
[2017-12-24] MEDS: FONDAPARINUX SODIUM 2.5 MG/0.5 ML SYR SQ SCH (09:40)
[2017-12-24] MEDS: BETAMETHASONE/CLOTRIMAZOLE CR 15 GM TUBE TOP SCH ×3 (10:17→16:34)
[2017-12-24] MEDS: FUROSEMIDE INJ 10 MG/ML 4 ML VIAL IV ONE ×2 (10:17→10:27)
[2017-12-24] MEDS: HYDROMORPHONE 100 ML IV PRN (10:18)
[2017-12-24] MEDS ORDERED: FUROSEMIDE INJ 10 MG/ML 4 ML VIAL IV SCH (10:30)
[2017-12-24] MEDS: AZITHROMYCIN 500MG/NS 250 ML 250 ML IV SCH (12:37)
[2017-12-24] MEDS: VANCOMYCIN 1GM/NS 250 ML 250 ML IV SCH (13:31)
[2017-12-24 17:23] LABS: ABG HCO3 27 mmol/L (23-28); ABG PCO2 63 mmHg (41-51); ABG PH 7.25 (7.31-7.41); ABG PO2 78 mmHg (80-105)
[2017-12-24] MEDS: FLUCONAZOLE 200 MG/100 ML 100 ML IV SCH (20:16)
[2017-12-25] VITALS (70 sets, daily range): BP systolic 96–158; BP diastolic 51–84
[2017-12-25] MEDS: HYDROMORPHONE 100 ML IV PRN (01:45)
[2017-12-25] MEDS: MEROPENEM 500 MG VIAL IV SCH ×3 (06:06→22:00)
[2017-12-25] MEDS: INSULIN REGULAR, HUMAN 100 UNIT/1 ML 3ML VIAL SQ SCH ×4 (06:08→23:47)
[2017-12-25 06:10] LABS: HEMATOCRIT 30.7 % (34.2-44.1); LYMPHOCYTES # (AUTO) 0.3 (1.0-3.2); MEAN CORPUSCULAR HEMOGLOBIN 26.8 pg (28-32); MEAN CORPUSCULAR HGB CONC 29.3 g/dL (31-35); MEAN CORPUSCULAR VOLUME 91.4 fL (81-99); MONOCYTES # (AUTO) 0.3 (0.2-0.8); MONOCYTES % 7.8 % (4.4-11.3); NEUTROPHILS # (AUTO) 2.9 (2.1-6.9); NEUTROPHILS % 82.4 % (38.7-80.0); PLATELET COUNT 153 x10e3/uL (140-360); RED BLOOD COUNT 3.36 x10e6/uL (3.6-5.1); RED CELL DISTRIBUTION WIDTH 15.7 % (11.7-14.4)
[2017-12-25 06:29] LABS: ANION GAP 12.5 mmol/L (8-16); CREATININE, SERUM 0.93 mg/dL (0.57-1.11); MAGNESIUM 2.1 MG/DL (1.3-2.1); PHOSPHORUS 3.1 MG/DL (2.3-4.7); POTASSIUM 5.5 mmol/L (3.5-5.1)
[2017-12-25] MEDS ORDERED: ACETAMINOPHEN 650 MG SUPP PR PRN (06:30)
[2017-12-25] MEDS ORDERED: FUROSEMIDE INJ 10 MG/ML 4 ML VIAL IV ONE (08:15)
[2017-12-25] MEDS: FOLIC ACID 5 MG/ML VIAL IM SCH (09:10)
[2017-12-25] MEDS: METHYLPREDNISOLONE SOD SUCC 40 MG/ML VIAL IV SCH ×2 (09:10→16:49)
[2017-12-25] MEDS: CYANOCOBALAMIN INJ 1,000 MCG/ML VIAL IM SCH (09:10)
[2017-12-25] MEDS: PANTOPRAZOLE 40 MG 10ML VIAL IV SCH (09:10)
[2017-12-25] MEDS: FONDAPARINUX SODIUM 2.5 MG/0.5 ML SYR SQ SCH (09:15)
[2017-12-25] MEDS ORDERED: SOD POLYSTYRENE SULFONATE SUSP 15 GM/60 ML BTL PO ONE (09:30)
[2017-12-25] MEDS: BETAMETHASONE/CLOTRIMAZOLE CR 15 GM TUBE TOP SCH ×2 (09:42→18:15)
[2017-12-25 09:44] LABS: ABG HCO3 28 mmol/L (23-28); ABG PCO2 47 mmHg (41-51); ABG PH 7.38 (7.31-7.41); ABG PO2 67 mmHg (80-105)
[2017-12-25] MEDS: AZITHROMYCIN 500MG/NS 250 ML 250 ML IV SCH (13:15)
[2017-12-25 13:58] LABS: ANION GAP 13.1 mmol/L (8-16); CALCIUM 8.2 mg/dL (8.4-10.2); CREATININE, SERUM 0.96 mg/dL (0.57-1.11); POTASSIUM 5.1 mmol/L (3.5-5.1)
[2017-12-25] MEDS: VANCOMYCIN 1GM/NS 250 ML 250 ML IV SCH ×2 (14:30→23:38)
[2017-12-25] MEDS ORDERED: SOD POLYSTYRENE SULFONATE SUSP 15 GM/60 ML BTL ONE (14:36)
--- NOTE | 2017-12-25 16:15 | Diagnostic Imaging Report ---
PROCEDURE: A single AP view of the chest. COMPARISON: 12/24/17 INDICATIONS: SOB FINDINGS: Lines/tubes: Stable endotracheal and nasogastric tubes. Stable right PICC. Lungs: Limited by body habitus and rotation. Diffuse bilateral air space opacities. Pleura: There is no pneumothorax. Small bilateral pleural effusions suspected. Heart and mediastinum: Enlarged cardiomediastinal silhouette, accentuated by rotation and low lung volumes. Bones: No acute bony abnormality. IMPRESSION: Limited as above. Diffuse bilateral airspace opacities, representing severe pulmonary edema, not significantly changed from prior exam. Underlying infiltrate cannot be excluded. Dictated by: Ricardo Espinal M.D. on 12/25/2017 at 16:15 Electronically approved by: Ricardo Espinal M.D. on 12/25/2017 at 16:15
[2017-12-25] MEDS: FLUCONAZOLE 200 MG/100 ML 100 ML IV SCH (20:00)
[2017-12-26] VITALS (39 sets, daily range): BP systolic 125–153; BP diastolic 65–84
[2017-12-26] MEDS: MEROPENEM 500 MG VIAL IV SCH ×3 (05:25→22:00)
[2017-12-26 05:28] LABS: ANION GAP 14.9 mmol/L (8-16); BLOOD UREA NITROGEN 66 mg/dL (7-26); BUN/CREATININE RATIO 80 (6-25); CALCIUM 8.1 mg/dL (8.4-10.2); CARBON DIOXIDE 29 mmol/L (22-29); CHLORIDE 112 mmol/L (98-107); CREATININE, SERUM 0.82 mg/dL (0.57-1.11); EST GLOMERULAR FILTRATION RATE > 60 ML/MIN (60-); GLUCOSE 224 mg/dL (74-118); POTASSIUM 4.9 mmol/L (3.5-5.1); SODIUM 151 mmol/L (136-145)
[2017-12-26] MEDS: INSULIN REGULAR, HUMAN 100 UNIT/1 ML 3ML VIAL SQ SCH ×3 (05:32→18:17)
[2017-12-26] MEDS: LEVALBUTEROL HCL SOLN NEBU 1.25 MG/3 ML NEB INH PRN ×2 (07:05→11:40)
[2017-12-26] MEDS: FONDAPARINUX SODIUM 2.5 MG/0.5 ML SYR SQ SCH (08:52)
[2017-12-26] MEDS: METHYLPREDNISOLONE SOD SUCC 40 MG/ML VIAL IV SCH ×2 (08:52→16:42)
[2017-12-26] MEDS: PANTOPRAZOLE 40 MG 10ML VIAL IV SCH (08:52)
[2017-12-26] MEDS: CYANOCOBALAMIN INJ 1,000 MCG/ML VIAL IM SCH (08:52)
[2017-12-26] MEDS: BETAMETHASONE/CLOTRIMAZOLE CR 15 GM TUBE TOP SCH ×2 (08:52→16:42)
[2017-12-26] MEDS: FOLIC ACID 5 MG/ML VIAL IM SCH (09:06)
--- NOTE | 2017-12-26 09:31 | Diagnostic Imaging Report ---
EXAMINATION: CHEST SINGLE (PORTABLE) INDICATION: \S\pneumonia \S\[id number] \S\0855 COMPARISON: 12/25/2017 FINDINGS: AP view TUBES and LINES: Stable nasogastric tube, endotracheal tube, and right PICC. LUNGS: Limited by body habitus. Lungs are well inflated. Redemonstration of diffuse bilateral airspace opacities. PLEURA: Bilateral pleural effusions. No visible pneumothorax. HEART AND MEDIASTINUM: Enlarged cardiomediastinal silhouette. BONES AND SOFT TISSUES: No acute osseous lesion. Soft tissues are unremarkable. UPPER ABDOMEN: No free air under the diaphragm. IMPRESSION: Diffuse bilateral airspace opacities, representing edema and/or pneumonia. Enlarged cardiomediastinal silhouette and bilateral pleural effusions. No significant interval change from prior exam. Signed by: Dr. Ricardo Espinal MD on 12/26/2017 9:28 AM
[2017-12-26] MEDS: AZITHROMYCIN 500MG/NS 250 ML 250 ML IV SCH (11:48)
[2017-12-26] MEDS: VANCOMYCIN 1GM/NS 250 ML 250 ML IV SCH (13:05)
[2017-12-26] MEDS ORDERED: FUROSEMIDE INJ 10 MG/ML 4 ML VIAL IV ONE (13:30)
--- NOTE | 2017-12-26 13:51 | Diagnostic Imaging Report ---
EXAMINATION: CHEST SINGLE (PORTABLE) INDICATION: \S\check ETT \S\[id number] \S\[id number] COMPARISON: Same day at 8:51 AM FINDINGS: AP view TUBES and LINES: Endotracheal tube in place with tip approximately 5 cm above milly. Stable nasogastric tube. LUNGS: Limited by body habitus. Lungs are well inflated. Redemonstration of bilateral airspace opacities. PLEURA: No pneumothorax. Bilateral pleural effusions. HEART AND MEDIASTINUM: Obscured enlarged cardiac mediastinal silhouette. BONES AND SOFT TISSUES: No acute osseous lesion. Soft tissues are unremarkable. UPPER ABDOMEN: No free air under the diaphragm. IMPRESSION: Endotracheal tube with tip approximately 5 cm above milly. Unchanged diffuse bilateral airspace opacities, representing edema and/or pneumonia. Signed by: Dr. Ricardo Espinal MD on 12/26/2017 1:47 PM
[2017-12-26] MEDS: FLUCONAZOLE 200 MG/100 ML 100 ML IV SCH (20:00)
[2017-12-26] MEDS ORDERED: SODIUM CHLORIDE 0.45% 1,000 ML ONE (22:23)
[2017-12-27] VITALS (30 sets, daily range): BP systolic 132–162; BP diastolic 75–97
[2017-12-27] MEDS: INSULIN REGULAR, HUMAN 100 UNIT/1 ML 3ML VIAL SQ SCH ×5 (03:39→23:46)
[2017-12-27 05:48] LABS: BASOPHILS % 0.1 % (0.0-1.0); HEMATOCRIT 33.2 % (34.2-44.1); HEMOGLOBIN 9.9 g/dL (12.0-16.0); LYMPHOCYTES # (AUTO) 0.4 (1.0-3.2); MEAN CORPUSCULAR HEMOGLOBIN 26.9 pg (28-32); MEAN CORPUSCULAR HGB CONC 29.8 g/dL (31-35); MEAN CORPUSCULAR VOLUME 90.2 fL (81-99); MONOCYTES # (AUTO) 0.6 (0.2-0.8); MONOCYTES % 6.8 % (4.4-11.3); NEUTROPHILS # (AUTO) 8.2 (2.1-6.9); NEUTROPHILS % 87.2 % (38.7-80.0); PLATELET COUNT 140 x10e3/uL (140-360); RED BLOOD COUNT 3.68 x10e6/uL (3.6-5.1)
[2017-12-27 06:08] LABS: ANION GAP 14.8 mmol/L (8-16); BLOOD UREA NITROGEN 64 mg/dL (7-26); BUN/CREATININE RATIO 82 (6-25); CALCIUM 8.1 mg/dL (8.4-10.2); CARBON DIOXIDE 31 mmol/L (22-29); CHLORIDE 110 mmol/L (98-107); CREATININE, SERUM 0.78 mg/dL (0.57-1.11); EST GLOMERULAR FILTRATION RATE > 60 ML/MIN (60-); GLUCOSE 249 mg/dL (74-118); POTASSIUM 4.8 mmol/L (3.5-5.1); SODIUM 151 mmol/L (136-145)
[2017-12-27] MEDS: MEROPENEM 500 MG VIAL IV SCH ×3 (06:32→21:36)
--- NOTE | 2017-12-27 07:35 | Diagnostic Imaging Report ---
EXAM: ABDOMEN-1VIEW (KUB) DATE: 12/27/2017 12:00 AM Time stamp on exam: 05:48 AM INDICATION: NG tube placement COMPARISON: None FINDINGS: LINES/TUBES: Partially visualized NG tube with tip overlying the region of the gastric body. BOWEL PATTERN: No evidence for obstruction. SOFT TISSUES: Limited evaluation due to patient's body habitus LUNG BASES: Not included BONES: No acute findings. IMPRESSION: Limited evaluation due to patient's body habitus. NG tube appears to overlie the region of the gastric body. Signed by: Dr. Sin Reed M.D. on 12/27/2017 7:32 AM
--- NOTE | 2017-12-27 07:37 | Diagnostic Imaging Report ---
EXAMINATION: CHEST SINGLE (PORTABLE) INDICATION: Intubation. COMPARISON: 12/26/2017 FINDINGS: TUBES and LINES: Endotracheal tube 3.6 cm above the milly. NG tube has been removed. Right upper extremity PIC line overlies the proximal SVC. LUNGS: Lungs are well inflated. Stable in appearance of airspace disease and interlobular septi thickening bilaterally PLEURA: Small bilateral pleural effusion HEART AND MEDIASTINUM: Cardiac size is severely enlarged. There are atherosclerotic calcifications within the aorta. BONES AND SOFT TISSUES: No acute osseous lesion. Soft tissues are unremarkable. UPPER ABDOMEN: No free air under the diaphragm. IMPRESSION: Stable interstitial edema and airspace disease Signed by: Dr. Sin Reed M.D. on 12/27/2017 7:34 AM
[2017-12-27] MEDS: LEVALBUTEROL HCL SOLN NEBU 1.25 MG/3 ML NEB INH PRN ×2 (07:50→19:30)
[2017-12-27] MEDS: PANTOPRAZOLE 40 MG 10ML VIAL IV SCH (08:38)
[2017-12-27] MEDS: BETAMETHASONE/CLOTRIMAZOLE CR 15 GM TUBE TOP SCH ×2 (08:38→16:52)
[2017-12-27] MEDS: METHYLPREDNISOLONE SOD SUCC 40 MG/ML VIAL IV SCH ×2 (08:38→16:52)
[2017-12-27] MEDS: FONDAPARINUX SODIUM 2.5 MG/0.5 ML SYR SQ SCH (08:38)
[2017-12-27] MEDS: FOLIC ACID 5 MG/ML VIAL IM SCH (09:28)
[2017-12-27] MEDS: CYANOCOBALAMIN INJ 1,000 MCG/ML VIAL IM SCH (09:28)
[2017-12-27] MEDS: VANCOMYCIN 1GM/NS 250 ML 250 ML IV SCH ×2 (12:09)
[2017-12-27] MEDS: AZITHROMYCIN 500MG/NS 250 ML 250 ML IV SCH (12:36)
[2017-12-27] MEDS: FLUCONAZOLE 200 MG/100 ML 100 ML IV SCH (20:16)
[2017-12-28] VITALS (25 sets, daily range): BP systolic 126–159; BP diastolic 70–86
[2017-12-28 05:19] LABS: BASOPHILS % 0.1 % (0.0-1.0); HEMOGLOBIN 9.8 g/dL (12.0-16.0); LYMPHOCYTES # (AUTO) 0.3 (1.0-3.2); LYMPHOCYTES % 3.2 % (18.0-39.1); MEAN CORPUSCULAR HEMOGLOBIN 27.1 pg (28-32); MEAN CORPUSCULAR HGB CONC 29.7 g/dL (31-35); MEAN CORPUSCULAR VOLUME 91.4 fL (81-99); MONOCYTES # (AUTO) 0.7 (0.2-0.8); MONOCYTES % 7.1 % (4.4-11.3); NEUTROPHILS # (AUTO) 8.7 (2.1-6.9); PLATELET COUNT 146 x10e3/uL (140-360); RED BLOOD COUNT 3.61 x10e6/uL (3.6-5.1); RED CELL DISTRIBUTION WIDTH 16.4 % (11.7-14.4)
[2017-12-28] MEDS: MEROPENEM 500 MG VIAL IV SCH ×3 (05:30→21:36)
[2017-12-28 05:36] LABS: ANION GAP 12.1 mmol/L (8-16); BLOOD UREA NITROGEN 54 mg/dL (7-26); BUN/CREATININE RATIO 71 (6-25); CALCIUM 8.3 mg/dL (8.4-10.2); CARBON DIOXIDE 36 mmol/L (22-29); CHLORIDE 108 mmol/L (98-107); CREATININE, SERUM 0.76 mg/dL (0.57-1.11); EST GLOMERULAR FILTRATION RATE > 60 ML/MIN (60-); GLUCOSE 284 mg/dL (74-118); POTASSIUM 5.1 mmol/L (3.5-5.1); SODIUM 151 mmol/L (136-145)
[2017-12-28] MEDS: INSULIN REGULAR, HUMAN 100 UNIT/1 ML 3ML VIAL SQ SCH ×3 (06:20→19:13)
--- NOTE | 2017-12-28 08:38 | Diagnostic Imaging Report ---
PROCEDURE: A single AP view of the chest. COMPARISON: Patients [facility], , CHEST SINGLE (PORTABLE), 12/27/2017, 5:03. INDICATIONS: INTUBATED, WITH PNEUMONIA FINDINGS: Lines/tubes: Endotracheal tube and nasogastric tube present. Right PICC again noted. Lungs: Diffuse pulmonary edema. Pleura: There is no pleural effusion or pneumothorax. Heart and mediastinum: The heart remains enlarged. Bones: No acute bony abnormality. IMPRESSION: Cardiomegaly with diffuse pulmonary edema not significantly changed. Austin Arvizu D.O. Dictated by: Austin Arvizu D.O. on 12/28/2017 at 8:38 Electronically approved by: Austin Arvizu D.O. on 12/28/2017 at 8:38
[2017-12-28] MEDS: FONDAPARINUX SODIUM 2.5 MG/0.5 ML SYR SQ SCH (10:05)
[2017-12-28] MEDS: PANTOPRAZOLE 40 MG 10ML VIAL IV SCH (10:05)
[2017-12-28] MEDS: METHYLPREDNISOLONE SOD SUCC 40 MG/ML VIAL IV SCH ×2 (10:05→16:41)
[2017-12-28] MEDS: CYANOCOBALAMIN INJ 1,000 MCG/ML VIAL IM SCH (10:27)
[2017-12-28] MEDS: FOLIC ACID 5 MG/ML VIAL IM SCH (10:27)
[2017-12-28] MEDS: BETAMETHASONE/CLOTRIMAZOLE CR 15 GM TUBE TOP SCH ×2 (10:27→17:00)
[2017-12-28] MEDS: VANCOMYCIN 1GM/NS 250 ML 250 ML IV SCH ×2 (12:26)
[2017-12-28] MEDS: AZITHROMYCIN 500MG/NS 250 ML 250 ML IV SCH (12:26)
[2017-12-28] MEDS ORDERED: DEXTROSE 5% 500ML 500 ML IV ONE (18:30)
[2017-12-28] MEDS: LEVALBUTEROL HCL SOLN NEBU 1.25 MG/3 ML NEB INH PRN (19:30)
[2017-12-28] MEDS: FLUCONAZOLE 200 MG/100 ML 100 ML IV SCH (20:00)
[2017-12-28] MEDS: DEXTROSE 5% IV SCH (23:38)
[2017-12-28] MEDS: VANCOMYCIN HCL IV SCH (23:38)
[2017-12-29] VITALS (26 sets, daily range): BP systolic 127–156; BP diastolic 68–90
[2017-12-29] MEDS: INSULIN REGULAR, HUMAN 100 UNIT/1 ML 3ML VIAL SQ SCH ×5 (00:03→23:47)
[2017-12-29] MEDS: MEROPENEM 500 MG VIAL IV SCH ×2 (06:23→14:00)
[2017-12-29 06:28] LABS: BLOOD UREA NITROGEN 48 mg/dL (7-26); BUN/CREATININE RATIO 71 (6-25); CALCIUM 8.3 mg/dL (8.4-10.2); CARBON DIOXIDE 36 mmol/L (22-29); CHLORIDE 104 mmol/L (98-107); CREATININE, SERUM 0.68 mg/dL (0.57-1.11); EST GLOMERULAR FILTRATION RATE > 60 ML/MIN (60-); GLUCOSE 346 mg/dL (74-118); MAGNESIUM 1.6 MG/DL (1.3-2.1); SODIUM 146 mmol/L (136-145)
[2017-12-29] MEDS: METHYLPREDNISOLONE SOD SUCC 40 MG/ML VIAL IV SCH ×2 (08:36→17:42)
[2017-12-29] MEDS: PANTOPRAZOLE 40 MG 10ML VIAL IV SCH (08:36)
[2017-12-29] MEDS: BETAMETHASONE/CLOTRIMAZOLE CR 15 GM TUBE TOP SCH ×2 (08:36→17:42)
[2017-12-29] MEDS: CYANOCOBALAMIN INJ 1,000 MCG/ML VIAL IM SCH (08:36)
[2017-12-29] MEDS: FOLIC ACID 5 MG/ML VIAL IM SCH (08:36)
[2017-12-29] MEDS: FONDAPARINUX SODIUM 2.5 MG/0.5 ML SYR SQ SCH (08:36)
[2017-12-29] MEDS ORDERED: DEXTROSE 5% IV SCH (12:00)
[2017-12-29] MEDS ORDERED: AZITHROMYCIN IV SCH (12:00)
[2017-12-29] MEDS: DEXTROSE 5% IV SCH (13:23)
[2017-12-29] MEDS: VANCOMYCIN HCL IV SCH (13:23)
[2017-12-29] MEDS: MIDAZOLAM HCL 2 MG/2 ML VIAL IV PRN ×2 (16:11→23:37)
[2017-12-29] MEDS: FLUCONAZOLE 200 MG/100 ML 100 ML IV SCH (20:10)
[2017-12-30] VITALS (50 sets, daily range): BP systolic 89–160; BP diastolic 49–98
[2017-12-30] MEDS: INSULIN REGULAR, HUMAN 100 UNIT/1 ML 3ML VIAL SQ SCH ×3 (05:49→17:53)
[2017-12-30] MEDS: PANTOPRAZOLE 40 MG 10ML VIAL IV SCH (09:10)
[2017-12-30] MEDS: FONDAPARINUX SODIUM 2.5 MG/0.5 ML SYR SQ SCH (09:10)
[2017-12-30] MEDS: METHYLPREDNISOLONE SOD SUCC 40 MG/ML VIAL IV SCH ×2 (09:10→17:03)
[2017-12-30] MEDS: BETAMETHASONE/CLOTRIMAZOLE CR 15 GM TUBE TOP SCH ×2 (09:10→16:56)
[2017-12-30] MEDS: FOLIC ACID 5 MG/ML VIAL IM SCH (09:27)
[2017-12-30] MEDS: CYANOCOBALAMIN INJ 1,000 MCG/ML VIAL IM SCH (09:27)
[2017-12-30] MEDS: MIDAZOLAM HCL 2 MG/2 ML VIAL IV PRN (10:03)
[2017-12-30] MEDS: PROPOFOL IV EMULSION 10MG/ML 100 ML IV PRN ×2 (14:44→20:35)
--- NOTE | 2017-12-30 19:16 | Progress Note ---
DATE: December 30, 2017 Ms. Coresa remains in ICU, sedated, intubated, no change. Her vitals are stable. All cultures remain negative. Her white count 9.8, hemoglobin 9.8. Her electrolytes were within normal limits. Sodium 146, creatinine 0.68. PHYSICAL EXAMINATION GENERAL: Intubated and sedated. VITAL SIGNS: Stable, currently afebrile. HEENT: Not icteric. NECK: Supple. CHEST: A few crackles bilaterally. HEART: S1 and S2, no murmur. ABDOMEN: Soft. IMPRESSION 1. Fever resolved. 2. Pneumonia, hospital associated. Seems to be doing better. 3. Acute respiratory distress syndrome. 4. . 5. Obesity. PLAN: Will follow. Job#: [id number]
[2017-12-30] MEDS: FLUCONAZOLE 200 MG/100 ML 100 ML IV SCH (21:32)
[2017-12-31] VITALS (83 sets, daily range): BP systolic 90–125; BP diastolic 53–74
[2017-12-31] MEDS: INSULIN REGULAR, HUMAN 100 UNIT/1 ML 3ML VIAL SQ SCH ×4 (00:31→17:28)
[2017-12-31] MEDS: PROPOFOL IV EMULSION 10MG/ML 100 ML IV PRN ×3 (01:50→14:56)
[2017-12-31 05:56] LABS: BASOPHILS % 0.1 % (0.0-1.0); EOSINOPHILS % 0.1 % (0.0-6.0); HEMOGLOBIN 9.8 g/dL (12.0-16.0); LYMPHOCYTES # (AUTO) 0.5 (1.0-3.2); LYMPHOCYTES % 3.8 % (18.0-39.1); MEAN CORPUSCULAR HEMOGLOBIN 27.2 pg (28-32); MEAN CORPUSCULAR HGB CONC 30.6 g/dL (31-35); MEAN CORPUSCULAR VOLUME 88.9 fL (81-99); MONOCYTES # (AUTO) 1.1 (0.2-0.8); MONOCYTES % 8.9 % (4.4-11.3); NEUTROPHILS # (AUTO) 10.5 (2.1-6.9); NEUTROPHILS % 86.7 % (38.7-80.0); PLATELET COUNT 151 x10e3/uL (140-360); RED CELL DISTRIBUTION WIDTH 16.5 % (11.7-14.4)
[2017-12-31 06:35] LABS: INR 1.31; PROTHROMBIN TIME 15.3 seconds (11.9-14.5)
[2017-12-31 06:36] LABS: PARTIAL THROMBOPLASTIN TIME 26.1 seconds (23.8-35.5)
[2017-12-31 06:46] LABS: ANION GAP 10.1 mmol/L (8-16); BLOOD UREA NITROGEN 41 mg/dL (7-26); BUN/CREATININE RATIO 66 (6-25); CALCIUM 7.5 mg/dL (8.4-10.2); CARBON DIOXIDE 40 mmol/L (22-29); CHLORIDE 96 mmol/L (98-107); CREATININE, SERUM 0.62 mg/dL (0.57-1.11); EST GLOMERULAR FILTRATION RATE > 60 ML/MIN (60-); GLUCOSE 280 mg/dL (74-118); POTASSIUM 5.1 mmol/L (3.5-5.1); SODIUM 141 mmol/L (136-145)
--- NOTE | 2017-12-31 07:02 | Diagnostic Imaging Report ---
CHEST SINGLE (PORTABLE), 12/31/2017 7:00 AM Technique: CHEST SINGLE (PORTABLE) Comparison: 12/27/2017 Clinical history: Shortness of breath Findings: See Impression Impression: Limited portable view with motion artifact, soft tissue attenuation 1. Lines/Tubes: ET tube 2.9 cm above the milly. NG tube tip overlies the gastric body. 2. Stable enlarged cardiomediastinal silhouette with diffuse bilateral pulmonary opacities. Possible underlying pleural fluid. Signed by: Dr Dorcas Larios MD on 12/31/2017 6:58 AM
[2017-12-31] MEDS: LEVALBUTEROL HCL SOLN NEBU 1.25 MG/3 ML NEB INH PRN ×2 (07:38→15:20)
[2017-12-31] MEDS: METHYLPREDNISOLONE SOD SUCC 40 MG/ML VIAL IV SCH ×2 (08:26→16:05)
[2017-12-31] MEDS: PANTOPRAZOLE 40 MG 10ML VIAL IV SCH (08:26)
[2017-12-31] MEDS: BETAMETHASONE/CLOTRIMAZOLE CR 15 GM TUBE TOP SCH ×2 (08:27→15:11)
[2017-12-31] MEDS: CYANOCOBALAMIN INJ 1,000 MCG/ML VIAL IM SCH (09:56)
[2017-12-31] MEDS: FOLIC ACID 5 MG/ML VIAL IM SCH (11:08)
[2017-12-31 13:35] LABS: ABG PCO2 56 mmHg (41-51); ABG PH 7.49 (7.31-7.41); ABG PO2 89 mmHg (80-105)
[2017-12-31 13:36] LABS: ABG HCO3 43 mmol/L (23-28)
[2017-12-31] MEDS: ACETAZOLAMIDE 250 MG TAB PO SCH (15:11)
--- NOTE | 2017-12-31 23:12 | Progress Note ---
DATE: December 31, 2017 Ms. Coreas remains on the ventilator. The plan for her to have trach tomorrow. I met with the family. PHYSICAL EXAMINATION GENERAL: She is intubated, sedated. VITAL SIGNS: Stable, currently afebrile. HEENT: Not icteric. NECK: Supple. CHEST: A few crackles in the bases, coarse. ABDOMEN: Soft. IMPRESSIONS 1. Acute respiratory distress syndrome. 2. Respiratory failure. 3. Pneumonia, resolved. PLAN: To proceed with the trach. Recheck CBC, recheck chem panel. Discussed with family she is going to have prolonged hospitalization. Job#: [id number] CQ
[2018-01-01] VITALS (66 sets, daily range): BP systolic 84–130; BP diastolic 48–92
[2018-01-01] MEDS: PROPOFOL IV EMULSION 10MG/ML 100 ML IV PRN ×3 (00:05→18:30)
[2018-01-01] MEDS: INSULIN REGULAR, HUMAN 100 UNIT/1 ML 3ML VIAL SQ SCH ×5 (00:54→23:34)
[2018-01-01 06:45] LABS: ANION GAP 8.8 mmol/L (8-16); BLOOD UREA NITROGEN 38 mg/dL (7-26); BUN/CREATININE RATIO 61 (6-25); CALCIUM 8.3 mg/dL (8.4-10.2); CARBON DIOXIDE 38 mmol/L (22-29); CHLORIDE 94 mmol/L (98-107); CREATININE, SERUM 0.62 mg/dL (0.57-1.11); EST GLOMERULAR FILTRATION RATE > 60 ML/MIN (60-); GLUCOSE 297 mg/dL (74-118); POTASSIUM 4.8 mmol/L (3.5-5.1); SODIUM 136 mmol/L (136-145)
[2018-01-01] MEDS: LEVALBUTEROL HCL SOLN NEBU 1.25 MG/3 ML NEB INH PRN ×2 (07:02→15:38)
[2018-01-01 07:26] LABS: BASOPHILS % 0.1 % (0.0-1.0); HEMATOCRIT 32.1 % (34.2-44.1); HEMOGLOBIN 9.9 g/dL (12.0-16.0); LYMPHOCYTES # (AUTO) 0.5 (1.0-3.2); LYMPHOCYTES % 5.6 % (18.0-39.1); MEAN CORPUSCULAR HEMOGLOBIN 27.2 pg (28-32); MEAN CORPUSCULAR HGB CONC 30.8 g/dL (31-35); MEAN CORPUSCULAR VOLUME 88.2 fL (81-99); MONOCYTES # (AUTO) 0.8 (0.2-0.8); MONOCYTES % 8.2 % (4.4-11.3); NEUTROPHILS # (AUTO) 8.3 (2.1-6.9); NEUTROPHILS % 85.7 % (38.7-80.0); PLATELET COUNT 130 x10e3/uL (140-360); RED BLOOD COUNT 3.64 x10e6/uL (3.6-5.1); RED CELL DISTRIBUTION WIDTH 15.9 % (11.7-14.4)
[2018-01-01] MEDS: ACETAZOLAMIDE 250 MG TAB PO SCH ×2 (08:41→17:54)
[2018-01-01] MEDS: PANTOPRAZOLE 40 MG 10ML VIAL IV SCH (08:41)
[2018-01-01] MEDS: METHYLPREDNISOLONE SOD SUCC 40 MG/ML VIAL IV SCH ×2 (08:41→17:54)
[2018-01-01] MEDS: BETAMETHASONE/CLOTRIMAZOLE CR 15 GM TUBE TOP SCH ×2 (08:41→17:54)
[2018-01-01] MEDS: CYANOCOBALAMIN INJ 1,000 MCG/ML VIAL IM SCH (08:41)
[2018-01-01] MEDS: FOLIC ACID 5 MG/ML VIAL IM SCH (09:08)
[2018-01-01 09:21] LABS: LYMPHOCYTES % (MANUAL) 5 % (19-48); MONOCYTES % (MANUAL) 12 % (3.4-9.0); NEUTROPHILS % (MANUAL) 83 % (40-74)
[2018-01-01 09:22] LABS: PLATELET ESTIMATE SLIGHTLY DECREASED; PLATELET MORPHOLOGY COMMENT NORMAL
[2018-01-01 09:24] LABS: ANISOCYTOSIS SLIGHT; HYPOCHROMASIA SLIGHT; RBC MORPHOLOGY COMMENT NORMAL
[2018-01-01] MEDS ORDERED: BUPIVACAINE 0.25%/EPI 30ML SDV INJ ONE (14:13)
--- NOTE | 2018-01-01 14:33 | Progress Note ---
DATE: Ms. Beatriz Coreas is going for surgery today for trach. She still remains intubated and sedated. Met with the family. REVIEW OF SYSTEMS: There is nothing new. PHYSICAL EXAMINATION GENERAL: She is intubated and sedated. VITAL SIGNS: Stable and afebrile. HEENT: Normal. NECK: Supple. CHEST: Clear. Coarse. ABDOMEN: Soft and obese. No tenderness. No evidence of adenopathy. EXTREMITIES: No edema. SKIN: No rash. IMPRESSION 1. Respiratory failure. 2. Status post acute respiratory distress syndrome. 3. Status post pneumonia, resolved. 4. Acute renal failure on chronic kidney disease, better. I think the patient needs to be in LTAC eventually. It is going to be a lengthy process. The family is aware. Will follow. Job#: [id number] BISI
[2018-01-01] MEDS ORDERED: SEVOFLURANE INHAL SOLN 250 ML PEN BTL ONE (14:48)
[2018-01-01] MEDS ORDERED: ROCURONIUM BROMIDE 10 MG/ML 5ML VIAL ONE (14:48)
[2018-01-01] MEDS ORDERED: MIDAZOLAM HCL 2 MG/2 ML VIAL ONE (18:17)
--- NOTE | 2018-01-01 20:05 | Operative Report ---
DATE OF PROCEDURE: January 01, 2018 PREOPERATIVE DIAGNOSIS: Respiratory failure. POSTOPERATIVE DIAGNOSIS: Respiratory failure. OPERATION PERFORMED: Placement of tracheostomy. ANESTHESIA: General. COMPLICATIONS: None. ESTIMATED BLOOD LOSS: Minimal. DESCRIPTION OF PROCEDURE: With the patient lying in bed in the supine position under good general anesthesia, the neck was prepped with Betadine solution, draped in the usual manner. The lower neck was then infiltrated with 0.25% Marcaine with epinephrine. A transverse lower neck incision was made at the midline, carried down through the subcutaneous tissue and through the platysma. The strap muscles were then at the midline and the trachea was identified. The thyroid was then swept upwards and at the level of 3rd tracheal ring and an incision was made. The endotracheal tube was then pulled back and a #8 Shiley tracheostomy tube was then placed into the trachea without any difficulty and connected to the ventilator. There was good air exchange. The tracheostomy was then sutured to the anterior neck with 2-0 silk and the ties were tied to hold it in place and the wound was then packed with Vaseline gauze. The patient tolerated the procedure well and returned to the recovery room in stable condition. Job#: [id number] CQ
[2018-01-02] VITALS (93 sets, daily range): BP systolic 89–147; BP diastolic 46–75
[2018-01-02] MEDS: PROPOFOL IV EMULSION 10MG/ML 100 ML IV PRN ×3 (00:36→12:09)
[2018-01-02] MEDS: INSULIN REGULAR, HUMAN 100 UNIT/1 ML 3ML VIAL SQ SCH ×3 (05:51→18:32)
--- NOTE | 2018-01-02 05:51 | Diagnostic Imaging Report ---
CHEST SINGLE (PORTABLE), 01/02/2018 7:00 AM Technique: CHEST SINGLE (PORTABLE) Comparison: 12/31/2017 Clinical history: Trach Findings: See Impression Impression: Limited portable view with motion artifact, soft tissue attenuation 1. Lines/Tubes: Removal of ET tube and placement tracheostomy over the thoracic inlet. NG tube tip overlies the gastric body. 2. Stable enlarged cardiomediastinal silhouette with diffuse pulmonary opacities and left basilar consolidation with air bronchograms. Possible left effusion. Signed by: Dr Dorcas Larios MD on 01/02/2018 5:40 AM
[2018-01-02 06:15] LABS: HEMATOCRIT 32.9 % (34.2-44.1); HEMOGLOBIN 10.4 g/dL (12.0-16.0); LYMPHOCYTES # (AUTO) 0.3 (1.0-3.2); LYMPHOCYTES % 2.2 % (18.0-39.1); MEAN CORPUSCULAR HEMOGLOBIN 28.4 pg (28-32); MEAN CORPUSCULAR HGB CONC 31.6 g/dL (31-35); MEAN CORPUSCULAR VOLUME 89.9 fL (81-99); MONOCYTES % 6.7 % (4.4-11.3); NEUTROPHILS # (AUTO) 13.9 (2.1-6.9); NEUTROPHILS % 90.4 % (38.7-80.0); PLATELET COUNT 127 x10e3/uL (140-360); RED BLOOD COUNT 3.66 x10e6/uL (3.6-5.1); RED CELL DISTRIBUTION WIDTH 15.9 % (11.7-14.4)
[2018-01-02 06:47] LABS: ANION GAP 9.4 mmol/L (8-16); BLOOD UREA NITROGEN 34 mg/dL (7-26); BUN/CREATININE RATIO 52 (6-25); CALCIUM 8.9 mg/dL (8.4-10.2); CARBON DIOXIDE 35 mmol/L (22-29); CHLORIDE 93 mmol/L (98-107); CREATININE, SERUM 0.65 mg/dL (0.57-1.11); EST GLOMERULAR FILTRATION RATE > 60 ML/MIN (60-); GLUCOSE 230 mg/dL (74-118); POTASSIUM 4.4 mmol/L (3.5-5.1); SODIUM 133 mmol/L (136-145)
[2018-01-02] MEDS: BETAMETHASONE/CLOTRIMAZOLE CR 15 GM TUBE TOP SCH ×2 (09:00→17:14)
[2018-01-02] MEDS: FOLIC ACID 5 MG/ML VIAL IM SCH (09:00)
[2018-01-02 10:11] LABS: LYMPHOCYTES % (MANUAL) 2 % (19-48); MONOCYTES % (MANUAL) 3 % (3.4-9.0); NEUTROPHILS % (MANUAL) 95 % (40-74); PLATELET ESTIMATE SLIGHTLY DECREASED; PLATELET MORPHOLOGY COMMENT NORMAL; RBC MORPHOLOGY COMMENT NORMAL
[2018-01-02] MEDS: ACETAZOLAMIDE 250 MG TAB PO SCH ×2 (10:16→18:23)
[2018-01-02] MEDS: CYANOCOBALAMIN INJ 1,000 MCG/ML VIAL IM SCH (10:16)
[2018-01-02] MEDS: PANTOPRAZOLE 40 MG 10ML VIAL IV SCH (10:16)
[2018-01-02] MEDS: METHYLPREDNISOLONE SOD SUCC 40 MG/ML VIAL IV SCH ×2 (10:16→18:23)
--- NOTE | 2018-01-02 17:21 | Progress Note ---
DATE: INFECTIOUS DISEASE PROGRESS NOTE SUBJECTIVE: Ms. Coreas is status post trach. She is doing better, actually. She is not on a vent anymore. Trach collar. No new complaints. Met with the family. PHYSICAL EXAMINATION GENERAL: She is alert, comfortable, does not seem to be in acute distress. VITAL SIGNS: Stable. Currently afebrile. HEENT: She does not appear icteric. NECK: Supple. CHEST: A few rhonchi bilaterally. HEART: S1 and S2. No S3 or S4, no murmur. ABDOMEN: Soft. Bowel sounds present. No tenderness. EXTREMITIES: No edema. LABORATORY DATA: Today white count is 15.38. Her sodium 133, potassium 4.4, creatinine 0.65. Cultures still pending. IMPRESSION 1. Respiratory failure, seems to be getting better status post trach. 2. Debilitated. 3. Leukocytosis prednisone. I would suggest you start to wean her down. 4. Consider long-term acute care evaluation. 5. Discussed with the family. Job#: [id number] DADA
[2018-01-02] MEDS ORDERED: MIDAZOLAM HCL 2 MG/2 ML VIAL IV PRN (18:00)
[2018-01-02] MEDS: MORPHINE SULFATE 2 MG/ML SYR IV PRN (19:15)
[2018-01-03] VITALS (74 sets, daily range): BP systolic 85–135; BP diastolic 49–78
[2018-01-03] MEDS: INSULIN REGULAR, HUMAN 100 UNIT/1 ML 3ML VIAL SQ SCH ×4 (00:18→17:45)
[2018-01-03] MEDS: MORPHINE SULFATE 2 MG/ML SYR IV PRN ×3 (01:47→23:12)
[2018-01-03 06:22] LABS: BASOPHILS % 0.1 % (0.0-1.0); HEMATOCRIT 32.4 % (34.2-44.1); LYMPHOCYTES # (AUTO) 0.4 (1.0-3.2); LYMPHOCYTES % 2.5 % (18.0-39.1); MEAN CORPUSCULAR HGB CONC 30.9 g/dL (31-35); MEAN CORPUSCULAR VOLUME 87.3 fL (81-99); MONOCYTES # (AUTO) 0.8 (0.2-0.8); NEUTROPHILS # (AUTO) 12.7 (2.1-6.9); NEUTROPHILS % 90.9 % (38.7-80.0); PLATELET COUNT 168 x10e3/uL (140-360); RED BLOOD COUNT 3.71 x10e6/uL (3.6-5.1); RED CELL DISTRIBUTION WIDTH 16.1 % (11.7-14.4)
[2018-01-03 06:38] LABS: ANION GAP 10.1 mmol/L (8-16); BLOOD UREA NITROGEN 33 mg/dL (7-26); BUN/CREATININE RATIO 52 (6-25); CALCIUM 8.9 mg/dL (8.4-10.2); CARBON DIOXIDE 35 mmol/L (22-29); CHLORIDE 98 mmol/L (98-107); CREATININE, SERUM 0.64 mg/dL (0.57-1.11); EST GLOMERULAR FILTRATION RATE > 60 ML/MIN (60-); GLUCOSE 263 mg/dL (74-118); MAGNESIUM 1.4 MG/DL (1.3-2.1); POTASSIUM 4.1 mmol/L (3.5-5.1); SODIUM 139 mmol/L (136-145)
[2018-01-03] MEDS: ACETAZOLAMIDE 250 MG TAB PO SCH (08:23)
[2018-01-03] MEDS: METHYLPREDNISOLONE SOD SUCC 40 MG/ML VIAL IV SCH ×2 (08:34→17:33)
[2018-01-03] MEDS: CYANOCOBALAMIN INJ 1,000 MCG/ML VIAL IM SCH (08:34)
[2018-01-03] MEDS: BETAMETHASONE/CLOTRIMAZOLE CR 15 GM TUBE TOP SCH (08:34)
[2018-01-03] MEDS: PANTOPRAZOLE 40 MG 10ML VIAL IV SCH (08:34)
[2018-01-03] MEDS: FOLIC ACID 5 MG/ML VIAL IM SCH ×2 (09:00→10:45)
--- NOTE | 2018-01-03 13:35 | Diagnostic Imaging Report ---
EXAMINATION: CHEST XRAY LINE PLACEMENT INDICATION: \S\PICC LINE PLACEMENT \S\[id number] \S\1300 \S\Y COMPARISON: 01/02/2018 FINDINGS: AP view TUBES and LINES: Stable tracheostomy and nasogastric tubes. Left PICC with tip overlying mid SVC. Right PICC in place with tip overlying superior SVC. LUNGS: Lungs are well inflated. Bilateral airspace opacities. PLEURA: No pneumothorax. HEART AND MEDIASTINUM: The cardiac silhouette is obscured. BONES AND SOFT TISSUES: No acute osseous lesion. Soft tissues are unremarkable. UPPER ABDOMEN: No free air under the diaphragm. IMPRESSION: Bilateral airspace opacities, representing edema and/or pneumonia, slightly increased from prior exam. Possible bilateral pleural effusions. Lines and tubes as above. Signed by: Dr. Ricardo Espinal MD on 01/03/2018 1:31 PM
[2018-01-03 13:57] LABS: BAND NEUTROPHILS % (MANUAL) 1 %; LYMPHOCYTES % (MANUAL) 1 % (19-48); MONOCYTES % (MANUAL) 8 % (3.4-9.0); NEUTROPHILS % (MANUAL) 90 % (40-74); NUCLEATED RED BLOOD CELLS 1
--- NOTE | 2018-01-03 17:46 | Progress Note ---
DATE: SUBJECTIVE: Ms. Coreas is more alert today. She is doing much better according to the family. REVIEW OF SYSTEMS: There is nothing new, status post trach. PHYSICAL EXAMINATION GENERAL: She is currently alert, comfortable. VITAL SIGNS: Stable, currently afebrile. HEENT: She does not appear icteric. NECK: Supple. CHEST: Clear. COR: No murmur. ABDOMEN: Soft. IMPRESSION 1. Pneumonia, resolved. 2. Acute respiratory distress syndrome, getting better. 3. Respiratory failure. 4. Debilitated. Continue same. Consider LTAC evaluation. Job#: [id number] [facility]
[2018-01-03] MEDS: FONDAPARINUX SODIUM 2.5 MG/0.5 ML SYR SQ SCH (18:34)
[2018-01-04] VITALS (45 sets, daily range): BP systolic 92–132; BP diastolic 52–79
[2018-01-04] MEDS: INSULIN REGULAR, HUMAN 100 UNIT/1 ML 3ML VIAL SQ SCH ×4 (00:04→18:02)
[2018-01-04] MEDS: MORPHINE SULFATE 2 MG/ML SYR IV PRN ×2 (05:21→22:10)
[2018-01-04 06:44] LABS: ANION GAP 11.9 mmol/L (8-16); BLOOD UREA NITROGEN 31 mg/dL (7-26); BUN/CREATININE RATIO 52 (6-25); CALCIUM 8.9 mg/dL (8.4-10.2); CARBON DIOXIDE 32 mmol/L (22-29); CHLORIDE 96 mmol/L (98-107); EST GLOMERULAR FILTRATION RATE > 60 ML/MIN (60-); GLUCOSE 191 mg/dL (74-118); MAGNESIUM 1.4 MG/DL (1.3-2.1); POTASSIUM 3.9 mmol/L (3.5-5.1); SODIUM 136 mmol/L (136-145)
[2018-01-04] MEDS: LEVALBUTEROL HCL SOLN NEBU 1.25 MG/3 ML NEB INH PRN (07:14)
[2018-01-04] MEDS: METHYLPREDNISOLONE SOD SUCC 40 MG/ML VIAL IV SCH ×2 (09:26→17:08)
[2018-01-04] MEDS: FONDAPARINUX SODIUM 2.5 MG/0.5 ML SYR SQ SCH (09:26)
[2018-01-04] MEDS: PANTOPRAZOLE 40 MG 10ML VIAL IV SCH (09:26)
[2018-01-04] MEDS: CYANOCOBALAMIN INJ 1,000 MCG/ML VIAL IM SCH (09:28)
[2018-01-04] MEDS: FOLIC ACID 5 MG/ML VIAL IM SCH (09:50)
--- NOTE | 2018-01-04 16:20 | Progress Note ---
DATE: SUBJECTIVE: Ms. Coreas continues to do well. She is alert and comfortable, remains very weak. She remains in the ICU. Again, I met with the family today. REVIEW OF SYSTEMS: There is nothing new except the weakness. PHYSICAL EXAMINATION GENERAL: Unchanged. She is alert and oriented, following commands. HEENT: Normocephalic. Does not appear icteric. NECK: Supple. CHEST: Clear. COR: S1 and S2, no murmur. ABDOMEN: Soft. Bowel sounds present. Obese. IMPRESSION 1. Status post sepsis. 2. Status post acute respiratory distress syndrome, slowly getting better. 3. Status post pneumonia, stable off antibiotic. 4. Morbidly obese patient. 5. Diabetes mellitus. 6. Debilitated. Agree with LTAC. Will follow. Job#: [id number]
[2018-01-05] VITALS (27 sets, daily range): BP systolic 98–147; BP diastolic 50–86
[2018-01-05] MEDS: INSULIN REGULAR, HUMAN 100 UNIT/1 ML 3ML VIAL SQ SCH ×5 (00:11→23:03)
[2018-01-05] MEDS: LEVALBUTEROL HCL SOLN NEBU 1.25 MG/3 ML NEB INH PRN ×2 (00:40→07:15)
[2018-01-05 06:10] LABS: BASOPHILS % 0.1 % (0.0-1.0); EOSINOPHILS # (AUTO) 0.3 (0.0-0.4); EOSINOPHILS % 1.8 % (0.0-6.0); HEMATOCRIT 32.7 % (34.2-44.1); HEMOGLOBIN 10.5 g/dL (12.0-16.0); LYMPHOCYTES # (AUTO) 1.1 (1.0-3.2); LYMPHOCYTES % 6.4 % (18.0-39.1); MEAN CORPUSCULAR HEMOGLOBIN 27.2 pg (28-32); MEAN CORPUSCULAR HGB CONC 32.1 g/dL (31-35); MEAN CORPUSCULAR VOLUME 84.7 fL (81-99); MONOCYTES # (AUTO) 1.1 (0.2-0.8); MONOCYTES % 6.5 % (4.4-11.3); NEUTROPHILS % 84.7 % (38.7-80.0); PLATELET COUNT 196 x10e3/uL (140-360); RED BLOOD COUNT 3.86 x10e6/uL (3.6-5.1); RED CELL DISTRIBUTION WIDTH 17.2 % (11.7-14.4)
[2018-01-05 06:39] LABS: ANION GAP 10.6 mmol/L (8-16); BLOOD UREA NITROGEN 31 mg/dL (7-26); BUN/CREATININE RATIO 56 (6-25); CALCIUM 8.7 mg/dL (8.4-10.2); CARBON DIOXIDE 33 mmol/L (22-29); CHLORIDE 98 mmol/L (98-107); CREATININE, SERUM 0.55 mg/dL (0.57-1.11); EST GLOMERULAR FILTRATION RATE > 60 ML/MIN (60-); GLUCOSE 166 mg/dL (74-118); POTASSIUM 3.6 mmol/L (3.5-5.1); SODIUM 138 mmol/L (136-145)
[2018-01-05] MEDS: MORPHINE SULFATE 2 MG/ML SYR IV PRN (08:41)
[2018-01-05] MEDS: CYANOCOBALAMIN INJ 1,000 MCG/ML VIAL IM SCH (08:49)
[2018-01-05] MEDS: METHYLPREDNISOLONE SOD SUCC 40 MG/ML VIAL IV SCH ×2 (08:49→16:27)
[2018-01-05] MEDS: PANTOPRAZOLE 40 MG 10ML VIAL IV SCH (08:49)
[2018-01-05] MEDS: FONDAPARINUX SODIUM 2.5 MG/0.5 ML SYR SQ SCH (08:49)
[2018-01-05] MEDS: FOLIC ACID 5 MG/ML VIAL IM SCH (08:49)
--- NOTE | 2018-01-05 12:03 | Diagnostic Imaging Report ---
PROCEDURE:X-RAY MODIFIED BARIUM SWALLOW COMPARISON:None. INDICATIONS:Not provided. DISCUSSION:Fluoroscopic examination was performed in conjunction with speech pathology, during swallowing of a variety of thin and thick liquid consistencies. CONCLUSION: No penetration or aspiration. Please see the report from speech pathology for complete details. Dictated by: Dwain Fisher M.D. on 01/05/2018 at 12:04 Electronically approved by: Dwain Fisher M.D. on 01/05/2018 at 12:04
[2018-01-05] MEDS: FUROSEMIDE 40 MG TAB PO SCH (13:04)
[2018-01-06] VITALS (25 sets, daily range): BP systolic 102–145; BP diastolic 31–84
[2018-01-06] MEDS: INSULIN REGULAR, HUMAN 100 UNIT/1 ML 3ML VIAL SQ SCH ×3 (05:30→18:00)
[2018-01-06 06:24] LABS: ANION GAP 11.5 mmol/L (8-16); BLOOD UREA NITROGEN 31 mg/dL (7-26); BUN/CREATININE RATIO 60 (6-25); CALCIUM 8.8 mg/dL (8.4-10.2); CARBON DIOXIDE 34 mmol/L (22-29); CHLORIDE 98 mmol/L (98-107); CREATININE, SERUM 0.52 mg/dL (0.57-1.11); EST GLOMERULAR FILTRATION RATE > 60 ML/MIN (60-); GLUCOSE 154 mg/dL (74-118); MAGNESIUM 1.3 MG/DL (1.3-2.1); POTASSIUM 3.5 mmol/L (3.5-5.1); SODIUM 140 mmol/L (136-145)
[2018-01-06] MEDS: LEVALBUTEROL HCL SOLN NEBU 1.25 MG/3 ML NEB INH PRN (08:04)
[2018-01-06] MEDS: FOLIC ACID 5 MG/ML VIAL IM SCH (09:30)
[2018-01-06] MEDS: FONDAPARINUX SODIUM 2.5 MG/0.5 ML SYR SQ SCH (09:30)
[2018-01-06] MEDS: CYANOCOBALAMIN INJ 1,000 MCG/ML VIAL IM SCH (09:30)
[2018-01-06] MEDS: FUROSEMIDE 40 MG TAB PO SCH (09:30)
[2018-01-06] MEDS: PANTOPRAZOLE 40 MG 10ML VIAL IV SCH (09:30)
[2018-01-06] MEDS: METHYLPREDNISOLONE SOD SUCC 40 MG/ML VIAL IV SCH (09:30)
[2018-01-06] MEDS: MEROPENEM 500 MG VIAL IV SCH ×2 (11:45→17:49)
[2018-01-06] MEDS: METRONIDAZOLE 500MG/NS 100ML 100 ML IV SCH ×2 (11:45→17:49)
[2018-01-06] MEDS ORDERED: MEROPENEM 500MG 500 MG in SODIUM CHLORIDE 0.9% 50ML 50 ML IV SCH (12:00)
[2018-01-06] MEDS ORDERED: HYDROCODONE/APAP 10MG-325MG TAB PO PRN (12:45)
--- NOTE | 2018-01-06 17:44 | Discharge Summary ---
The patient is transferred to [facility], long-term acute care. FINAL DIAGNOSES: 1. Respiratory failure failed extubation now status post tracheostomy on ventilator support with weaning. 2. Status post acute respiratory distress syndrome. 3. Status post sepsis with shock. 4. Aspiration pneumonia result in sepsis with shock and acute respiratory distress syndrome 5. Morbid obesity. 6. Baseline status post ventral hernia repair, small bowel obstruction resection. 7. Diabetes type 2. 8. Hypertension. 9. Hyperlipidemia. 10. Enlarged abdominal fold apron. SUMMARY: Patient a 67-year-old female who came into the hospital with pneumonia. The patient prior to this hospitalization, she had uneventful abdominal surgery to have her abdominal hernia repair and small bowel obstruction with small bowel resection. The patient was stable. She went home from that admission and then subsequently went back on this admission for pneumonia. The patient did better. Leukocytosis resolved. She was about to go home; however, she did require oxygen and insurance denied oxygen due to the patient's acute and not chronic stage, although she was hypoxic and required oxygen support. Patient was about to go home with hospital support oxygen. However, she most likely aspirated because of her recurrent cough with hemoptysis and subsequently went into ARDS with respiratory failure and became very septic with shock of low blood pressure. Patient required intubation and transferred to ICU and subsequently on ventilator support. Repeated x-ray multiple times. The patient was septic with ARDS, white out of both lungs. The patient subsequently had a bronchoscopy shown to have significant thick mucus, pus lavage. The patient remained on ventilator support. She had a slow recovery course but fortunately she did improve, although slowly she got better. However, because of her baseline obstructive sleep apnea, obesity and severe infection, although recovering the patient was unable to come off the vent and subsequently underwent tracheostomy. She did well. Tracheostomy was done and the patient received also nasogastric tube feeding. She is now more awake and alert answering appropriate questions, moving all extremities and is doing better, but could not yet tolerate the Passy Boswell. She had a swallowing test which ____ is good; however, because of her inability to tolerate Passy Radha, she is unable to eat at this time. The goal is for the patient to improve stronger, continue with antibiotics for her infection and continue with physical therapy and G tube feeding and monitor her for the whole entire week and if she does get better next week then she may retry Passy Radha again and start on diet. If she is not able to do that, then most likely she will need a PEG tube placement. At this time, the patient is stable for downgrade to long-term acute care, but remain in the ICU at that facility, [facility] and will continue to work on this patient recovery time. Patient and family expressed understanding of the transfer and will continue to monitor the patient closely in the ICU at long-term acute care with the whole team of specialists, including Dr. Karl Becerra, Dr. Rome Fuller, myself, Dr. Dwain Tinajero and physical therapy. The patient is stable for discharge today to long-term acute care. An order has been given to the RN and also continue with her current active medications. Job#: [id number]
[2018-01-07] VITALS (8 sets, daily range): BP systolic 112–130; BP diastolic 65–75
[2018-01-07] MEDS: INSULIN REGULAR, HUMAN 100 UNIT/1 ML 3ML VIAL SQ SCH ×2 (00:10→05:24)
[2018-01-07] MEDS: MEROPENEM 500 MG VIAL IV SCH ×2 (00:10→05:24)
[2018-01-07] MEDS: METRONIDAZOLE 500MG/NS 100ML 100 ML IV SCH (02:38)
[2018-01-07 06:19] LABS: BLOOD UREA NITROGEN 21 mg/dL (7-26); BUN/CREATININE RATIO 66 (6-25); CARBON DIOXIDE 24 mmol/L (22-29); CHLORIDE 118 mmol/L (98-107); CREATININE, SERUM 0.32 mg/dL (0.57-1.11); EST GLOMERULAR FILTRATION RATE > 60 ML/MIN (60-); GLUCOSE 104 mg/dL (74-118); SODIUM 145 mmol/L (136-145)
[2018-01-07 06:28] LABS: CALCIUM 5.1 mg/dL (8.4-10.2)
[2018-01-07 06:30] LABS: MAGNESIUM 0.8 MG/DL (1.3-2.1)
[2018-01-07] MEDS ORDERED: POTASSIUM CHLORIDE 20MEQ/100ML 200 ML IV ONE (06:45)
[2018-01-07 08:23] LABS: ANION GAP 10.3 mmol/L (8-16); BLOOD UREA NITROGEN 32 mg/dL (7-26); BUN/CREATININE RATIO 59 (6-25); CALCIUM 8.4 mg/dL (8.4-10.2); CARBON DIOXIDE 35 mmol/L (22-29); CHLORIDE 98 mmol/L (98-107); CREATININE, SERUM 0.54 mg/dL (0.57-1.11); EST GLOMERULAR FILTRATION RATE > 60 ML/MIN (60-); GLUCOSE 183 mg/dL (74-118); MAGNESIUM 1.4 MG/DL (1.3-2.1); POTASSIUM 3.3 mmol/L (3.5-5.1); SODIUM 140 mmol/L (136-145)
[2018-01-07] MEDS ORDERED: POTASSIUM CHLORIDE 20MEQ/100ML 100 ML IV STA (08:50)
[2018-01-07] MEDS ORDERED: METHYLPREDNISOLONE SOD SUCC 40 MG/ML VIAL IV SCH (09:00)
[2018-01-07] MEDS ORDERED: MAGNESIUM SULFATE 2GM/50ML 50 ML IV ONE (09:00)
[2018-01-07] MEDS: FONDAPARINUX SODIUM 2.5 MG/0.5 ML SYR SQ SCH (09:30)
[2018-01-07] MEDS: PANTOPRAZOLE 40 MG 10ML VIAL IV SCH (09:30)
[2018-01-07] MEDS: FOLIC ACID 5 MG/ML VIAL IM SCH (09:30)
[2018-01-07] MEDS: FUROSEMIDE 40 MG TAB PO SCH (09:30)
[2018-01-07] MEDS: CYANOCOBALAMIN INJ 1,000 MCG/ML VIAL IM SCH (09:30)
== END 2018-01-07 10:52 | DRG 4 ==
LOC: ER 10:27 → ERHOLD 20:11 → ICU 23:49 → IMCU 12-12 08:43 → MED/SURG 12-13 14:22 → UNDODISIN 12-18 16:35 → ICU 12-19 12:52
PROVIDERS: ADMIT Internal Medicine; ATTEND Internal Medicine
PROC: 5A1955Z Respiratory Ventilation, Greater than 96 Consecutive Hours (ICD-10-PCS; 2017-12-19)
PROC: 0BH18EZ Insertion of Endotracheal Airway into Trachea, Via Natural or Artificial Opening Endoscopic (ICD-10-PCS; 2017-12-19)
PROC: 02HV33Z Insertion of Infusion Device into Superior Vena Cava, Percutaneous Approach (ICD-10-PCS; 2017-12-20)
PROC: 30233N0 Transfusion of Autologous Red Blood Cells into Peripheral Vein, Percutaneous Approach (ICD-10-PCS; 2017-12-20)
PROC: 3E043XZ Introduction of Vasopressor into Central Vein, Percutaneous Approach (ICD-10-PCS; 2017-12-20)
PROC: 0B9D8ZX Drainage of Right Middle Lung Lobe, Via Natural or Artificial Opening Endoscopic, Diagnostic (ICD-10-PCS; 2017-12-21)
PROC: 0B968ZX Drainage of Right Lower Lobe Bronchus, Via Natural or Artificial Opening Endoscopic, Diagnostic (ICD-10-PCS; 2017-12-21)
PROC: 0B110F4 Bypass Trachea to Cutaneous with Tracheostomy Device, Open Approach (ICD-10-PCS; principal; 2018-01-01 15:00)
PROC: 02HV33Z Insertion of Infusion Device into Superior Vena Cava, Percutaneous Approach (ICD-10-PCS; 2018-01-03)
DX: J18.9 Pneumonia, unspecified organism (principal); N17.0 Acute kidney failure with tubular necrosis; R65.21 Severe sepsis with septic shock; A41.9 Sepsis, unspecified organism; E87.0 Hyperosmolality and hypernatremia; I28.8 Other diseases of pulmonary vessels; J80 Acute respiratory distress syndrome; R13.10 Dysphagia, unspecified; J96.01 Acute respiratory failure with hypoxia; Z68.43 Body mass index [BMI] 50.0-59.9, adult; R04.2 Hemoptysis; I82.611 Acute embolism and thrombosis of superficial veins of right upper extremity; J69.0 Pneumonitis due to inhalation of food and vomit; E11.65 Type 2 diabetes mellitus with hyperglycemia; E78.5 Hyperlipidemia, unspecified; E87.6 Hypokalemia; E66.01 Morbid (severe) obesity due to excess calories; D50.9 Iron deficiency anemia, unspecified; R53.81 Other malaise; G47.33 Obstructive sleep apnea (adult) (pediatric); I10 Essential (primary) hypertension; B37.2 Candidiasis of skin and nail; F32.9 Major depressive disorder, single episode, unspecified; Z79.82 Long term (current) use of aspirin
CPT/HCPCS: 31500; 36415; 36430; 36569; 36600; 71045; 71046; 71250; 71260; 74018; 74230; 78582; 80048; 80053; 80202; 81001; 81015; 82140; 82270; 82271; 82550; 82553; 82575; 82607; 82728; 82746; 82805; 82948; 83540; 83605; 83735; 83880; 84100; 84156; 84300; 84439; 84443; 84466; 84484; 85025; 85379; 85610; 85730; 86021; 86039; 86631; 86738; 86850; 86900; 86920; 87040; 87070; 87086; 87102; 87116; 87205; 87206; 87335; 87400; 87449; 89051; 92522; 93005; 93306; 93971; 94003; 94640; 96366; 96372; 97139; 99284; A9540; A9558; J0330; J0456; J0696; J1450; J1650; J1652; J1756; J1940; J2185; J2248; J2250; J2270; J2543; J2920; J3370; J3420; J3480; J7030; J7042; J7050; J7060; J7120; P9016; Q9967

== ENCOUNTER → 2018-04-05 | Outpatient (CLI) | payer MEDICARE, OTHER ==
--- NOTE | 2018-04-05 12:14 | Diagnostic Imaging Report ---
PROCEDURE:US CHEST (INCL MEDIASTINUM) COMPARISON:None. INDICATION:Large left pleural effusion reported by outside imaging. TECHNIQUE:Balderas scale color Doppler ultrasound chest PROCEDURE: The patient was transferred from an outside facility for thoracentesis given reported large pleural effusion on outside imaging. [employer] ultrasound was performed of the chest. FINDINGS: No evidence of pleural effusion within the right or left chest. CONCLUSION: There is no evidence of significant fluid volume within the chest. Thoracentesis was aborted. Dictated by: Cj Ruiz M.D. on 04/05/2018 at 12:18 Electronically approved by: Cj Ruiz M.D. on 04/05/2018 at 12:18
== END | disposition home or self-care (01) ==
LOC: US 10:45
PROVIDERS: ATTEND Internal Medicine
DX: J90 Pleural effusion, not elsewhere classified (principal); Z53.09 Procedure and treatment not carried out because of other contraindication
CPT/HCPCS: 76604

== ENCOUNTER 2019-06-12 19:21 | Emergency (ER) | payer MEDICARE, OTHER ==
[~2019-06-12] VITALS: Ht 154.9 cm; Wt 117.0 kg
[2019-06-12 19:49] LABS: BASOPHILS % 0.4 % (0.0-1.0); EOSINOPHILS # (AUTO) 0.3 (0.0-0.4); EOSINOPHILS % 3.1 % (0.0-6.0); HEMATOCRIT 32.8 % (34.2-44.1); HEMOGLOBIN 10.1 g/dL (12.0-16.0); LYMPHOCYTES # (AUTO) 1.6 (1.0-3.2); LYMPHOCYTES % 16.3 % (18.0-39.1); MEAN CORPUSCULAR HEMOGLOBIN 24.6 pg (28-32); MEAN CORPUSCULAR HGB CONC 30.8 g/dL (31-35); MEAN CORPUSCULAR VOLUME 79.8 fL (81-99); MONOCYTES # (AUTO) 0.9 (0.2-0.8); MONOCYTES % 9.1 % (4.4-11.3); NEUTROPHILS # (AUTO) 6.8 (2.1-6.9); NEUTROPHILS % 70.7 % (38.7-80.0); PLATELET COUNT 194 x10e3/uL (140-360); RED BLOOD COUNT 4.11 x10e6/uL (3.6-5.1); RED CELL DISTRIBUTION WIDTH 15.4 % (11.7-14.4)
[2019-06-12 19:55] LABS: INR 1.08; PROTHROMBIN TIME 14.5 seconds (11.9-14.5)
[2019-06-12 20:01] LABS: ANION GAP 13.7 mmol/L (8-16); CALCIUM 9.2 mg/dL (8.4-10.2); CREATININE, SERUM 1.23 mg/dL (0.57-1.11); POTASSIUM 3.7 mmol/L (3.5-5.1)
== END 2019-06-12 20:30 | disposition home or self-care (01) ==
LOC: ER 19:21
DX: N95.0 Postmenopausal bleeding (principal)
CPT/HCPCS: 36415; 80048; 85025; 85610; 85730; 99283

== ENCOUNTER → 2019-06-24 | Outpatient (CLI) | payer MEDICARE, OTHER ==
[~2019-06-24] MED LIST changes: +ALBUTEROL SULF 0.083% NEB SOLN 3 ML NEB ONE; +LEVALBUTEROL HCL SOLN NEBU 0.63 MG/3 ML NEB ONE
--- NOTE | 2019-07-07 14:48 | Pulmonary Function Test ---
DATE OF STUDY: REFERRING PHYSICIAN: SPIROMETRY: FEV1 is 1.44 L, 76%. FVC is 1.62 L, 65.3%. FEV1/FVC ratio 89. Post bronchodilator values: FEV1 1.40 L, 73%. FVC 1.54 L, 62%. FEV1/FVC ratio 91. Lung volumes by nitrogen washout. Total lung capacity 49. CONCLUSION: Restrictive pattern with no significant bronchodilator responsiveness in this particular patient. The patient has a history of postinflammatory fibrosis and that explains the restriction in the lung function. Clinical correlation is recommended. MD RENATO Lundberg/MODL /[id number]
== END ==
LOC: RESP 12:26
PROVIDERS: ATTEND Internal Medicine
DX: R06.00 Dyspnea, unspecified (principal)
CPT/HCPCS: 94060; 94640; 94727; 94729

== ENCOUNTER 2019-07-19 21:22 | Inpatient (IN) | payer MEDICARE, OTHER ==
[~2019-07-19] VITALS: Ht 154.9 cm; Wt 116.1 kg
[~2019-07-19 21:22] MED LIST changes: -ALBUTEROL SULF 0.083% NEB SOLN 3 ML NEB ONE; -LEVALBUTEROL HCL SOLN NEBU 0.63 MG/3 ML NEB ONE
[2019-07-19] MEDS ORDERED: ACETAMINOPHEN 1000 MG/100 ML IV STA (22:24)
[2019-07-19] MEDS ORDERED: SODIUM CHLORIDE 0.9% 1000ML 1,000 ML IV ONE (22:30)
[2019-07-19 22:40] LABS: BASOPHILS % 0.4 % (0.0-1.0); EOSINOPHILS # (AUTO) 0.1 (0.0-0.4); EOSINOPHILS % 1.4 % (0.0-6.0); HEMATOCRIT 28.6 % (34.2-44.1); HEMOGLOBIN 8.5 g/dL (12.0-16.0); LYMPHOCYTES % 13.9 % (18.0-39.1); MEAN CORPUSCULAR HEMOGLOBIN 23.2 pg (28-32); MEAN CORPUSCULAR HGB CONC 29.7 g/dL (31-35); MEAN CORPUSCULAR VOLUME 78.1 fL (81-99); MONOCYTES # (AUTO) 0.8 (0.2-0.8); MONOCYTES % 11.9 % (4.4-11.3); PLATELET COUNT 226 x10e3/uL (140-360); RED BLOOD COUNT 3.66 x10e6/uL (3.6-5.1); RED CELL DISTRIBUTION WIDTH 16.3 % (11.7-14.4)
[2019-07-19] MEDS ORDERED: CEFEPIME HCL 1 GM VIAL IV SCH (23:00)
[2019-07-19] MEDS ORDERED: LASIX40 MG PO (23:06)
[2019-07-19] MEDS ORDERED: ZOLOFT50 MG PO (23:06)
[2019-07-19] MEDS ORDERED: K DUR10 MEQ PO (23:06)
[2019-07-19] MEDS ORDERED: METOPROLOL TART25 MG PO (23:07)
[2019-07-19 23:08] LABS: ALBUMIN/GLOBULIN RATIO 0.7 (0.8-2.0); ANION GAP 12.7 mmol/L (8-16); CALCIUM 8.8 mg/dL (8.4-10.2); CREATININE, SERUM 1.38 mg/dL (0.57-1.11); POTASSIUM 3.7 mmol/L (3.5-5.1)
[2019-07-19] MEDS ORDERED: BASAGLAR SC (23:08)
[2019-07-19] MEDS ORDERED: CEFEPIME 1GM/NS 0.9% 50 ML 50 ML IV ONE (23:41)
[2019-07-19 23:44] LABS: BILIRUBIN,URINE NEGATIVE (NEGATIVE); CLARITY,URINE CLEAR (CLEAR); COLOR,URINE YELLOW (YELLOW); KETONES,URINE NEGATIVE (NEGATIVE); LEUKOCYTE ESTERASE ,URINE NEGATIVE (NEGATIVE); NITRITE,URINE NEGATIVE (NEGATIVE); PROTEIN,URINE DIPSTICK NEGATIVE (NEGATIVE); URINE UROBILINOGEN 1 mg/dL (0.2 - 1)
[2019-07-19 23:55] LABS: BACTERIA,URINE RARE /HPF; EPITHELIAL CELLS,URINE RARE /LPF; RBC,URINE 0-5 /HPF (0-5); WBC,URINE (MAN) 0-5 /HPF (0-5)
[2019-07-20] VITALS (9 sets, daily range): BP systolic 114–151; BP diastolic 72–83
[2019-07-20] MEDS ORDERED: VANCOMYCIN 1GM/NS 250 ML 250 ML IV SCH
--- NOTE | 2019-07-20 00:07 | Diagnostic Imaging Report ---
EXAMINATION: CHEST 2 VIEWS INDICATION: ^COUGH, CONGESTION ^[id number] ^[id number] COMPARISON: Chest radiograph 01/02/2018 FINDINGS: PA and lateral views TUBES and LINES: None. LUNGS: Adequate lung volumes. Increased bilateral perihilar peribronchial lung markings and hazy airspace opacities. PLEURA: No pleural effusion or pneumothorax. HEART AND MEDIASTINUM: The cardiomediastinal silhouette is borderline enlarged. BONES AND SOFT TISSUES: No acute osseous lesion. Soft tissues are unremarkable. UPPER ABDOMEN: No free air under the diaphragm. IMPRESSION: Findings suggestive of central airway disease such as bronchitis possibly with bronchopneumonia. Aspiration or pulmonary edema are also considerations. Signed by: Abner Kruger DO on 07/20/2019 12:04 AM
[2019-07-20] MEDS ORDERED: ASPIRIN 81 MG CHEW TAB PO ONE (00:45)
[2019-07-20] MEDS ORDERED: SODIUM CHLORIDE 0.9% 1000ML 1,000 ML IV STA (01:30)
[2019-07-20] MEDS ORDERED: LEVOFLOXACIN 750MG/D5W 150ML IV SCH (02:00)
[2019-07-20] MEDS ORDERED: ACETAMINOPHEN 325 MG TAB PO PRN (02:15)
--- NOTE | 2019-07-20 02:30 | NUR ---
received pt from ER to room 214. AAOx3, no resp distress, on o2 at 3L, uses o2 at home, no c/o pain or discomfort, skin intact, pt with tele #[id number], pt has own CPAP machine in room, family at bedside, bed in lowest and locked position, bed alarm on and call light in reach
[2019-07-20] MEDS ORDERED: CEFEPIME HCL 2 GM/SOD CHL 0.9% 100 ML BAG IV SCH (06:00)
[2019-07-20] MEDS ORDERED: ONDANSETRON HCL INJ 2MG/ML 2ML 2 MG/ML VIAL IV PRN (06:30)
[2019-07-20] MEDS ORDERED: ALBUTEROL/IPRATROPIUM 3 ML NEB NEB PRN (06:30)
[2019-07-20] MEDS ORDERED: DEXTROSE 50% SYRINGE 50 ML IV PRN (06:30)
[2019-07-20] MEDS ORDERED: LORAZEPAM 0.5 MG TAB PO PRN (06:30)
[2019-07-20] MEDS ORDERED: HYDRALAZINE HCL 20 MG/ML VIAL IV PRN (06:30)
[2019-07-20] MEDS ORDERED: MELATONIN 5 MG TABLET PO PRN (06:45)
[2019-07-20] MEDS: ALBUTEROL/IPRATROPIUM 3 ML NEB NEB SCH ×2 (07:00→10:45)
[2019-07-20] MEDS: INSULIN LISPRO 100 UNIT/1 ML 3ML VIAL SQ SCH ×4 (07:30→21:00)
[2019-07-20 07:47] LABS: CREATINE KINASE MB 4.4 ng/mL (0-5.0)
[2019-07-20] MEDS ORDERED: AZITHROMYCIN 500MG/NS 250 ML 250 ML IV SCH (08:00)
[2019-07-20] MEDS ORDERED: CEFTRIAXONE SOD 1 GM/NS 50 ML 50 ML IV SCH (09:00)
[2019-07-20] MEDS: POTASSIUM CHLORIDE 10MEQ EA PO SCH (09:00)
[2019-07-20] MEDS: BENZONATATE 100 MG CAP PO SCH ×2 (09:21→17:30)
[2019-07-20] MEDS: FUROSEMIDE 40 MG TAB PO SCH (09:21)
[2019-07-20] MEDS: SERTRALINE HCL 50 MG TAB PO SCH (09:21)
[2019-07-20] MEDS: GUAIFENESIN 600MG/DEXTROMETHORPHAN 30MG TABSR PO SCH ×2 (09:21→17:30)
[2019-07-20] MEDS: METOPROLOL TARTRATE 25 MG TAB PO SCH (09:21)
--- NOTE | 2019-07-20 14:20 | NUR ---
WOUNDCARE CONSULT FOR 69 YO F ADMITTED FOR SEPSIS, CHARLENE KING 17 PUP CONSERVATIVE LABS: WBC-6.9,HGB- 8.5,GLUCOSE- 118 , PENDING BLOOD CULTURE 5 SURGICAL LAPAROSCOPIC SITES FROM RECENT HYSTERECTOMY ASSESSED NO SSX OF INFECTION NOTED PT DENIES ANY PAIN OR IRRITATION LINKED WITH SITES SITES PRESENT WITH 5 SCABBED SURFACES DRY AND CLEAN LARGEST MEASURING [id number] ZERO DEPTH AND 4 SMALLEST MEASURING [id number] AND ZERO DEPTH RECOMMENDATIONS : NURSING TO CONTINUE TO PROTECT AND OFFLOAD PATIENT PRESSURE AREAS NEEDED NURSING TO CONTINUE TO ENCOURAGE PATIENT OUT OF BED FOR MEALS AND MUCH TOLERATED NURSING TO APPLY BACITRACIN OINTMENT DAILY TO ABDOMINAL SCABBED LAPAROSCOPIC AREAS AND LEAVE OPEN TO AIR Addendum: 07/20/19 at 1433 by Tomas Zacarias RN Amended: Links added.
[2019-07-20] MEDS ORDERED: LEVALBUTEROL HCL SOLN NEBU 0.63 MG/3 ML NEB INH PRN (14:45)
[2019-07-20 15:19] LABS: CREATINE KINASE MB 6.3 ng/mL (0-5.0)
[2019-07-20] MEDS: PIPER-TAZ 3.375 GM 50 ML IV SCH (17:30)
[2019-07-20] MEDS ORDERED: IOPAMIDOL 370 MG/ML 200 ML INFUS..BTL INJ ONE (18:37)
[2019-07-20] MEDS ORDERED: SODIUM CHLORIDE 0.9% 50ML 0 ML ONE (18:37)
--- NOTE | 2019-07-20 18:48 | NUR ---
patient is back from CT.
--- NOTE | 2019-07-20 19:06 | Diagnostic Imaging Report ---
EXAM: CT Chest WITHOUT contrast 07/20/2019 4:47 PM INDICATION: Pneumonia. Sepsis. COMPARISON: None TECHNIQUE: Chest was scanned utilizing a multidetector helical scanner from the lung apex through the level of the adrenal glands without administration of IV contrast. Absence of intravenous contrast decreases sensitivity for detection of lymphadenopathy and vascular pathology. Coronal and sagittal reformations were obtained. Routine protocol was performed. IV CONTRAST: None RADIATION DOSE: Total DLP: 616.53 mGy*cm Estimated effective dose: (DLP x 0.014 x size factor) mSv COMPLICATIONS: None FINDINGS: LINES/ TUBES: None. LUNGS AND AIRWAYS: There is multifocal coarsening of the pulmonary interstitium associated with patchy groundglass density and traction bronchiectasis suggesting interstitial lung disease, possibly NSIP; Superimposed infection cannot be excluded. PLEURA: No pleural effusion or pneumothorax. HEART AND MEDIASTINUM: The thyroid gland is normal. No mediastinal, hilar or axillary lymphadenopathy. The heart is normal in size.. There is no pericardial effusion. The pulmonary trunk is dilated measuring 3.9 cm in diameter. Mild considerations of the aortic and mitral valves. UPPER ABDOMEN: Limited non-contrast views of the upper abdomen show lamellated gallstones. The adrenal glands are normal. Remote fractures of lower left-sided ribs. BONES: There are degenerative changes in the thoracic spine. SOFT TISSUES: Unremarkable. IMPRESSION: 1. Multifocal coarsening of the pulmonary interstitium associated with patchy groundglass density and traction bronchiectasis suggesting interstitial lung disease such fibrotic NSIP (although concurrent UIP is possible). Superimposed infection cannot be excluded in the proper setting. 2. Cholelithiasis. Signed by: Dr. Paul Jackson M.D. on 07/20/2019 7:02 PM
--- NOTE | 2019-07-20 19:25 | NUR ---
Patient received lying in bed. AAO x 4. Patient had no complaints of pain. Respiration even and non-labored on 4L NC. Telemetry records rhythm as SR . Purewick in place. Fall precautions implemented. Patient instructed to call for assistance when needed. Call light within reach.
--- NOTE | 2019-07-20 19:26 | Consultation ---
DATE OF CONSULTATION: Pulmonary Consultation REASON FOR THE CONSULT: Shortness of breath. HISTORY OF PRESENT ILLNESS: Ms. Coreas is a 69-year-old female, very well known to me from previous admissions at [facility] in [place] and she is my office patient. She has developed post inflammatory scarring and fibrosis. A wjnw-xew-u-half ago, she was admitted here with respiratory failure requiring tracheostomy and was decannulated at [facility]. She recently underwent hysterectomy 2 weeks ago for menorrhagia. Now, she presented here with worsening shortness of breath. She reports that the shortness of breath started 2 days ago associated with cough, which is dry. She denies any complaints of chest pain, nausea, or vomiting. She is on home oxygen because of post inflammatory fibrosis and she has sleep apnea and uses a CPAP machine. She reports that the shortness of breath was worse on activity associated with productive cough, was almost constant for the last 3 days and did not get better with nebulizer treatment, so they decided to come to the emergency room. REVIEW OF SYSTEMS: GENERAL: Denies any fever or chills. HEAD: Denies any head trauma. ENT: Denies any earache. CVS: Denies any chest pain. RESPIRATORY: Shortness of breath. GI: Denies any nausea or vomiting. The rest of the review of systems are negative except as in HPI. PAST MEDICAL HISTORY: 1. Hypertension. 2. Morbid obesity. 3. Post inflammatory fibrosis, secondary to severe pneumonia; acute respiratory distress syndrome 2 years ago, requiring tracheostomy. 4. Chronic kidney disease. 5. History of uterine cancer. PAST SURGICAL HISTORY: Hysterectomy, history of tracheostomy, and PEG tube in the past. FAMILY AND SOCIAL HISTORY: She does not smoke. Does not drink. PHYSICAL EXAMINATION: VITAL SIGNS: Temperature 97.4, pulse of 82, blood pressure 114/72, respiratory rate of 18, and O2 saturation 96%. HEENT: Head atraumatic, normocephalic. NECK: Supple. CHEST: Crackles bilaterally on the bases, otherwise no wheezing. HEART: S1 and S2 audible. ABDOMEN: Soft, nontender. EXTREMITIES: No pedal edema. NEUROLOGIC: Awake, alert. No focal neurologic deficit. LABORATORY DATA: Sodium 137, potassium 3.7, creatinine 1.38. White count of 6.9, hemoglobin 8.5, platelets 226. ASSESSMENT/PLAN: Ms. Coreas is a 69-year-old female, very well known to me from my office visit. She has post inflammatory fibrosis that resulted due to a severe acute respiratory distress syndrome pneumonia 2 years ago when she was admitted and was requiring ICU intubation and tracheostomy. She was decannulated by me at [facility]. She spent almost 2 months in the hospital. She recently underwent hysterectomy for uterine cancer. Currently, here because of coughing, wheezing, shortness of breath. Chest x-ray is showing possibility of infiltrate. CURRENT PROBLEMS: 1. Possible pneumonia versus exacerbation of inflammatory fibrosis. 2. Morbid obesity. 3. Obstructive sleep apnea. 4. Possible diastolic heart failure, which is chronic and compensated. PLAN: 1. I will start the patient on IV Zosyn along with azithromycin. Discontinue the Rocephin. 2. Continue the patient on Lasix. 3. CT chest without contrast. Discussed with the patient's family at bedside in detail. MD RENATO Lundberg/TALIB /[id number]
[2019-07-20] MEDS: METHYLPREDNISOLONE SOD SUCC 40 MG/ML VIAL 1ML IV SCH (21:39)
[2019-07-21] VITALS (7 sets, daily range): BP systolic 132–148; BP diastolic 66–86
[2019-07-21] MEDS ORDERED: VANCOMYCIN HCL 1GM/NS 250 ML BAG IV SCH
[2019-07-21] MEDS: LEVALBUTEROL HCL SOLN NEBU 0.63 MG/3 ML NEB INH SCH ×5 (01:00→20:38)
[2019-07-21] MEDS: PIPER-TAZ 3.375 GM 50 ML IV SCH ×3 (02:30→18:00)
[2019-07-21 03:59] LABS: BASOPHILS % 0.4 % (0.0-1.0); EOSINOPHILS % 0.2 % (0.0-6.0); HEMATOCRIT 30.4 % (34.2-44.1); HEMOGLOBIN 8.7 g/dL (12.0-16.0); LYMPHOCYTES # (AUTO) 0.4 (1.0-3.2); LYMPHOCYTES % 6.7 % (18.0-39.1); MEAN CORPUSCULAR HEMOGLOBIN 22.8 pg (28-32); MEAN CORPUSCULAR HGB CONC 28.6 g/dL (31-35); MEAN CORPUSCULAR VOLUME 79.6 fL (81-99); MONOCYTES # (AUTO) 0.2 (0.2-0.8); MONOCYTES % 3.4 % (4.4-11.3); NEUTROPHILS # (AUTO) 4.8 (2.1-6.9); NEUTROPHILS % 88.9 % (38.7-80.0); PLATELET COUNT 186 x10e3/uL (140-360); RED BLOOD COUNT 3.82 x10e6/uL (3.6-5.1); RED CELL DISTRIBUTION WIDTH 16.3 % (11.7-14.4)
[2019-07-21 04:23] LABS: B-TYPE NATRIURETIC PEPTIDE2 180.5 pg/mL (0-100)
[2019-07-21 05:58] LABS: CALCIUM 8.6 mg/dL (8.4-10.2); CHOL/HDL RATIO 3.9 (3.0-3.6)
[2019-07-21] MEDS: INSULIN LISPRO 100 UNIT/1 ML 3ML VIAL SQ SCH ×4 (07:30→21:00)
--- NOTE | 2019-07-21 07:30 | NUR ---
Shift report given to oncoming nurse.
--- NOTE | 2019-07-21 08:00 | NUR ---
RECEIVED PT RESTING QUIETLY THIS AM. FAMILY AT SIDE.
[2019-07-21] MEDS: BENZONATATE 100 MG CAP PO SCH ×2 (09:00→17:00)
[2019-07-21] MEDS: POTASSIUM CHLORIDE 10MEQ EA PO SCH (09:00)
[2019-07-21] MEDS: SERTRALINE HCL 50 MG TAB PO SCH (09:00)
[2019-07-21] MEDS: METHYLPREDNISOLONE SOD SUCC 40 MG/ML VIAL 1ML IV SCH ×2 (09:00→23:00)
[2019-07-21] MEDS: FUROSEMIDE 40 MG TAB PO SCH (09:00)
[2019-07-21] MEDS: GUAIFENESIN 600MG/DEXTROMETHORPHAN 30MG TABSR PO SCH ×2 (09:00→17:00)
[2019-07-21] MEDS: METOPROLOL TARTRATE 25 MG TAB PO SCH (09:00)
[2019-07-21] MEDS: AZITHROMYCIN 500MG/NS 250 ML 250 ML IV SCH (09:15)
[2019-07-21 11:57] LABS: PLATELET ESTIMATE MODERATELY DECREASED; PLATELET MORPHOLOGY COMMENT FEW LARGE
--- NOTE | 2019-07-21 16:30 | NUR ---
PT UP WITH PHY THERAPY AMBULATING WITH O2; SAT DROPPING INTO UPPER 70S.
[2019-07-21] MEDS: ENOXAPARIN SOD INJ 40 MG/0.4 ML SYR SC SCH (17:00)
[2019-07-21] MEDS ORDERED: SODIUM CHLORIDE 0.9% 250ML 250 ML ONE (17:58)
[2019-07-21] MEDS: MUPIROCIN 2% OINT 22 GM TUBE TOP SCH (18:25)
--- NOTE | 2019-07-21 19:25 | NUR ---
Patient received sitting in recliner chair. AAO x 3. Family at bedside. No acute distress noted. Call light within reach.
--- NOTE | 2019-07-21 21:30 | NUR ---
Patient's IV on left arm infiltrated. Old IV removed with tip intact. New IV inserted in Left hand 20G. Patient tolerated well.
[2019-07-22] VITALS (8 sets, daily range): BP systolic 127–155; BP diastolic 62–83
[2019-07-22] MEDS: LEVALBUTEROL HCL SOLN NEBU 0.63 MG/3 ML NEB INH SCH ×4 (00:39→19:55)
[2019-07-22] MEDS: PIPER-TAZ 3.375 GM 50 ML IV SCH ×3 (02:30→17:35)
--- NOTE | 2019-07-22 07:00 | NUR ---
BEDSIDE SHIFT REPORT RECEIVED FROM THE OPTICAL ENGINEERING TECHNICIAN RN.EDUCATED PT ABOUT FALL PRECAUTIONS. PT VERBALIZED UNDERSTANDING. CALL LIGHT WITH IN EASY REACH. PT DENIES NEEDS AT THIS TIME.
[2019-07-22] MEDS: INSULIN LISPRO 100 UNIT/1 ML 3ML VIAL SQ SCH ×4 (08:30→21:30)
--- NOTE | 2019-07-22 08:43 | Diagnostic Imaging Report ---
PROCEDURE: X-RAY MODIFIED BARIUM SWALLOW COMPARISON: Chest CT of 07/20/2019. INDICATION: Pneumonia, sepsis Radiation Details: Fluoroscopy time: 1.2 minutes Cumulative dose: 11.7 mGy DISCUSSION: Fluoroscopic examination was performed in conjunction with speech pathology during swallowing a variety of thin and thick liquid consistencies. Provided images demonstrate no laryngeal penetration or aspiration. CONCLUSION: Modified barium swallow demonstrating no laryngeal penetration or aspiration. Please refer to the speech pathology report for further details. Signed by: Danny Guzmán MD on 07/22/2019 8:40 AM
[2019-07-22] MEDS: MUPIROCIN 2% OINT 22 GM TUBE TOP SCH (09:00)
[2019-07-22] MEDS: SERTRALINE HCL 50 MG TAB PO SCH (09:29)
[2019-07-22] MEDS: BENZONATATE 100 MG CAP PO SCH ×2 (09:29→17:35)
[2019-07-22] MEDS: POTASSIUM CHLORIDE 10MEQ EA PO SCH (09:30)
[2019-07-22] MEDS: GUAIFENESIN 600MG/DEXTROMETHORPHAN 30MG TABSR PO SCH ×2 (09:30→17:35)
[2019-07-22] MEDS: METOPROLOL TARTRATE 25 MG TAB PO SCH (09:31)
[2019-07-22] MEDS: METHYLPREDNISOLONE SOD SUCC 40 MG/ML VIAL 1ML IV SCH ×2 (09:37→21:13)
[2019-07-22] MEDS: FUROSEMIDE 40 MG TAB PO SCH (09:37)
[2019-07-22] MEDS: AZITHROMYCIN 500MG/NS 250 ML 250 ML IV SCH (09:44)
--- NOTE | 2019-07-22 14:27 | NUR ---
Spoke with Dr. Tinajero regarding discharge plan. He states he hopes to discharge pt tomorrow if she is stable. Stated he thinks pt already has home home, if not, gave order for CM to set up. CM spoke to pt at bedside. Pt states she is currently with [facility]. Would like to resume services with them. Choice letter signed and placed in chart. Copy to pt. IMM letter delivered and explained to pt. She verbalized understanding. Signed copy placed in chart. Copy to pt. ANTONY called [facility] and spoke with Brenda who verified that pt is currently on service with them. Informed her of anticipated discharge for tomorrow. Resumption order and clinical faxed. P [phone] F [phone]
[2019-07-22] MEDS: ENOXAPARIN SOD INJ 40 MG/0.4 ML SYR SC SCH (17:35)
--- NOTE | 2019-07-22 19:00 | NUR ---
BEDSIDE SHIFT REPORT GIVEN TO THE PIGMENT MIXER RN. PT DENIED FURTHER NEEDS.
[2019-07-22] MEDS ORDERED: ULTRAM50 MG PO (23:45)
[2019-07-23] VITALS (8 sets, daily range): BP systolic 137–155; BP diastolic 67–85
[2019-07-23] MEDS: PIPER-TAZ 3.375 GM 50 ML IV SCH ×3 (01:18→17:45)
[2019-07-23] MEDS: LEVALBUTEROL HCL SOLN NEBU 0.63 MG/3 ML NEB INH SCH ×4 (01:35→19:55)
--- NOTE | 2019-07-23 07:00 | NUR ---
BEDSIDE SHIFT REPORT RECEIVED FROM THE FILM CRITIC RN.PT FAMILY AT BEDSIDE. PT DENIES NEEDS AT THIS TIME.
[2019-07-23] MEDS: POTASSIUM CHLORIDE 10MEQ EA PO SCH (08:23)
[2019-07-23] MEDS: FUROSEMIDE 40 MG TAB PO SCH (08:23)
[2019-07-23] MEDS: METOPROLOL TARTRATE 25 MG TAB PO SCH (08:24)
[2019-07-23] MEDS: GUAIFENESIN 600MG/DEXTROMETHORPHAN 30MG TABSR PO SCH (08:24)
[2019-07-23] MEDS: BENZONATATE 100 MG CAP PO SCH ×4 (08:24→23:27)
[2019-07-23] MEDS: SERTRALINE HCL 50 MG TAB PO SCH (08:25)
[2019-07-23] MEDS: AZITHROMYCIN 500MG/NS 250 ML 250 ML IV SCH (08:27)
[2019-07-23] MEDS: INSULIN LISPRO 100 UNIT/1 ML 3ML VIAL SQ SCH ×4 (08:30→20:27)
[2019-07-23] MEDS: MUPIROCIN 2% OINT 22 GM TUBE TOP SCH (09:30)
[2019-07-23] MEDS: METHYLPREDNISOLONE SOD SUCC 40 MG/ML VIAL 1ML IV SCH (09:30)
[2019-07-23] MEDS ORDERED: GUAIFENESIN/CODEINE 10 ML CUP PO PRN (11:15)
[2019-07-23] MEDS ORDERED: GUAIFENESIN/CODEINE 10 ML CUP PO NR (11:15)
[2019-07-23] MEDS ORDERED: PANTOPRAZOLE 40 MG 10ML VIAL IV SCH (12:15)
[2019-07-23] MEDS: ENOXAPARIN SOD INJ 40 MG/0.4 ML SYR SC SCH (17:45)
--- NOTE | 2019-07-23 19:00 | NUR ---
BEDSIDE SHIFT REPORT GIVEN TO THE SOFTWARE ENGINEER ADVISOR RN. PT FAMILY AT BEDSIDE. PT DENIED FURTHER NEEDS.
[2019-07-23] MEDS: FAMOTIDINE 20 MG TAB PO SCH (20:26)
[2019-07-24] VITALS (8 sets, daily range): BP systolic 114–153; BP diastolic 66–89
[2019-07-24] MEDS: LEVALBUTEROL HCL SOLN NEBU 0.63 MG/3 ML NEB INH SCH ×4 (01:05→20:00)
[2019-07-24] MEDS: PIPER-TAZ 3.375 GM 50 ML IV SCH ×3 (02:47→17:33)
[2019-07-24] MEDS: BENZONATATE 100 MG CAP PO SCH ×3 (05:31→17:05)
[2019-07-24 06:22] LABS: BASOPHILS % 0.3 % (0.0-1.0); EOSINOPHILS % 0.3 % (0.0-6.0); HEMATOCRIT 29.9 % (34.2-44.1); HEMOGLOBIN 8.6 g/dL (12.0-16.0); LYMPHOCYTES # (AUTO) 1.9 (1.0-3.2); LYMPHOCYTES % 25.3 % (18.0-39.1); MEAN CORPUSCULAR HEMOGLOBIN 22.6 pg (28-32); MEAN CORPUSCULAR HGB CONC 28.8 g/dL (31-35); MEAN CORPUSCULAR VOLUME 78.5 fL (81-99); MONOCYTES # (AUTO) 0.7 (0.2-0.8); MONOCYTES % 9.6 % (4.4-11.3); NEUTROPHILS # (AUTO) 4.8 (2.1-6.9); PLATELET COUNT 230 x10e3/uL (140-360); RED BLOOD COUNT 3.81 x10e6/uL (3.6-5.1)
[2019-07-24 06:49] LABS: ANION GAP 13.1 mmol/L (8-16); CALCIUM 8.7 mg/dL (8.4-10.2); CREATININE, SERUM 1.24 mg/dL (0.57-1.11); POTASSIUM 4.1 mmol/L (3.5-5.1)
--- NOTE | 2019-07-24 07:00 | NUR ---
BEDSIDE SHIFT REPORT RECEIVED FROM THE AUTO APPRENTICE MECHANIC RN . PT FAMILY AT BEDSIDE. PT DENIES NEEDS AT THIS TIME.
[2019-07-24] MEDS: INSULIN LISPRO 100 UNIT/1 ML 3ML VIAL SQ SCH ×4 (07:30→21:06)
[2019-07-24] MEDS: PANTOPRAZOLE SOD 40 MG TABEC PO SCH (08:45)
[2019-07-24] MEDS: FUROSEMIDE 40 MG TAB PO SCH (08:55)
[2019-07-24] MEDS: POTASSIUM CHLORIDE 10MEQ EA PO SCH (08:55)
[2019-07-24] MEDS: SERTRALINE HCL 50 MG TAB PO SCH (08:56)
[2019-07-24] MEDS: METOPROLOL TARTRATE 25 MG TAB PO SCH (08:56)
[2019-07-24] MEDS: METHYLPREDNISOLONE SOD SUCC 40 MG/ML VIAL 1ML IV SCH (08:58)
[2019-07-24] MEDS: MUPIROCIN 2% OINT 22 GM TUBE TOP SCH (09:02)
--- NOTE | 2019-07-24 15:20 | NUR ---
Visit made by the Spiritual Care Department Pastoral Visitor, jK Zacarias. PV provided pastoral presence, communion, prayer, hospitality, and supportive listening. Pastoral Visitor informed pt/family of the scope of [employer] and availability. HUGO CAPONE Medical Management Specialist Spiritual Care Department O: [phone] Pager: [phone] ([phone] number calling from)
[2019-07-24] MEDS: ENOXAPARIN SOD INJ 40 MG/0.4 ML SYR SC SCH (17:05)
--- NOTE | 2019-07-24 19:00 | NUR ---
BEDSIDE SHIFT REPORT GIVEN TO THE KNUCKLE BENDER RN. PT DENIED FURTHER NEEDS.
[2019-07-24] MEDS: FAMOTIDINE 20 MG TAB PO SCH (21:02)
[2019-07-25] MEDS: LEVALBUTEROL HCL SOLN NEBU 0.63 MG/3 ML NEB INH SCH ×2 (01:00→06:57)
[2019-07-25 01:13] VITALS: BP 148/87
[2019-07-25] MEDS: PIPER-TAZ 3.375 GM 50 ML IV SCH ×2 (01:16→10:00)
[2019-07-25 05:31] VITALS: BP 146/82
[2019-07-25] MEDS: BENZONATATE 100 MG CAP PO SCH ×2 (06:26)
[2019-07-25] MEDS: INSULIN LISPRO 100 UNIT/1 ML 3ML VIAL SQ SCH (07:30)
[2019-07-25 09:06] VITALS: BP 136/70
--- NOTE | 2019-07-25 10:13 | NUR ---
HOME HEALTH DISCHARGE NOTE PATIENT ADDRESS WHERE SERVICE WILL BE RECEIVED: [address] [place] [address] PATIENT CONTACT NUMBER: [phone] NAME OF HOME HEALTH COMPANY: [employer] TELEPHONE/FAX NUMBER OF COMPANY: [phone] ADDRESS OF COMPANY: [facility] [place] [address] SERVICES TO RECEIVE: mcc, PT/OT ANTICIPATED DATE SERVICES WILL BEGIN: July 26, 2019 ANTONY called and spoke with Shelby with intake and informed of discharge for today. Please call the company above if you have not received a call to schedule a home visit within 24 hours of discharge.
--- NOTE | 2019-07-25 10:21 | Discharge Summary ---
FINAL DIAGNOSES: 1. Community-acquired pneumonia associated with possible early aspiration pneumonia. 2. Baseline interstitial lung disease fibrotic NSIP with possible UIP as well. 3. Acute bronchitis, failed outpatient treatment. 4. Morbid obesity. 5. Multiple baseline problems. SUMMARY: The patient is a 69-year-old female came to the hospital with increasing cough. The patient has multiple workup done. She had a modified barium swallow. No gross aspiration, but the patient does have some streak of aspiration on further testing. The CT chest showed that she had multifocal coarsening of the pulmonary interstitium associated with patchy ground-glass density and traction bronchiectasis suggestive of interstitial lung disease such as fibrotic NSIP or UIP with possible superimposed acute bronchitis with infection more apparent as well. The patient is doing much better. She has received antibiotics, nebulizer treatment, and steroids. The patient is breathing much better. Her coughing was worse when she laid down consistent with possible reflux as well. The patient is stable. She will go home. Resume all home medication. Prescription previously was given. She will take Pepcid 40 mg at night when she is asleep. The patient is otherwise stable. Discharged home. Follow up outpatient. The patient will be discharged home today. MD ARNOLD Steele/TALIB /[id number]
[2019-07-25] MEDS: PANTOPRAZOLE SOD 40 MG TABEC PO SCH (10:22)
--- NOTE | 2019-07-25 10:22 | NUR ---
EXPLAINED IMM TO PATIENT AND FAMILY. PATIENT SIGNED, PLACED IN CHART, COPY GIVEN TO PT/FAM
[2019-07-25] MEDS: SERTRALINE HCL 50 MG TAB PO SCH (10:25)
[2019-07-25] MEDS: METOPROLOL TARTRATE 25 MG TAB PO SCH (10:27)
[2019-07-25] MEDS: FUROSEMIDE 40 MG TAB PO SCH (10:27)
[2019-07-25] MEDS: MUPIROCIN 2% OINT 22 GM TUBE TOP SCH (10:28)
[2019-07-25] MEDS: POTASSIUM CHLORIDE 10MEQ EA PO SCH (10:29)
[2019-07-25] MEDS: METHYLPREDNISOLONE SOD SUCC 40 MG/ML VIAL 1ML IV SCH (10:30)
[2019-07-25 10:36] VITALS: BP 136/70
[2019-07-25] MEDS ORDERED: ONDANSETRON HCL 4 MG ORAL DISINTEGRATING TAB PO PRN (10:45)
--- NOTE | 2019-07-25 10:59 | NUR ---
Doctor Young ordered for me to schdule this patient for an out patient pft. I stopped by and spoke with the patient and realized I recognized her from her recently coming in to do a complete outpatient PFT that was done on 06/24/19. It was ordered by doctor Becerra originally. I will fax over the results to Doctor Young's office to look over results.
== END 2019-07-25 11:45 | disposition home or self-care (01) | DRG 871 ==
LOC: ER 21:22 → ERHOLD 07-20 00:36 → MED/SURG2 07-20 02:21
PROVIDERS: ADMIT Internal Medicine; ATTEND Internal Medicine
DX: A41.9 Sepsis, unspecified organism (principal); J18.9 Pneumonia, unspecified organism; Z68.42 Body mass index [BMI] 45.0-49.9, adult; I50.32 Chronic diastolic (congestive) heart failure; I13.0 Hypertensive heart and chronic kidney disease with heart failure and stage 1 through stage 4 chronic kidney disease, or unspecified chronic kidney disease; J96.11 Chronic respiratory failure with hypoxia; J44.0 Chronic obstructive pulmonary disease with (acute) lower respiratory infection; I48.91 Unspecified atrial fibrillation; J20.9 Acute bronchitis, unspecified; G47.33 Obstructive sleep apnea (adult) (pediatric); E11.22 Type 2 diabetes mellitus with diabetic chronic kidney disease; N18.3 Chronic kidney disease, stage 3 (moderate); F32.9 Major depressive disorder, single episode, unspecified; Z79.01 Long term (current) use of anticoagulants; J84.10 Pulmonary fibrosis, unspecified; E66.01 Morbid (severe) obesity due to excess calories; K21.9 Gastro-esophageal reflux disease without esophagitis
CPT/HCPCS: 36415; 71046; 71250; 74230; 80048; 80053; 80061; 81001; 82550; 82553; 82948; 83036; 83605; 83880; 84484; 85025; 86850; 86900; 87040; 87400; 93005; 94640; 97139; 99284; J0456; J0692; J0696; J1650; J2543; J2920; J3370; J7030; J7050; Q9967

== ENCOUNTER 2019-09-07 22:10 | Inpatient (IN) | payer MEDICARE, OTHER ==
[~2019-09-07] VITALS: Ht 154.9 cm; Wt 133.4 kg
[~2019-09-07 22:10] MED LIST changes: +BASAGLAR SC; +K DUR10 MEQ PO; +LASIX40 MG PO; +METOPROLOL TART25 MG PO; +ULTRAM50 MG PO; +ZOLOFT50 MG PO
[2019-09-07 23:06] LABS: BASOPHILS % 0.4 % (0.0-1.0); EOSINOPHILS # (AUTO) 0.4 (0.0-0.4); EOSINOPHILS % 4.3 % (0.0-6.0); HEMATOCRIT 29.9 % (34.2-44.1); HEMOGLOBIN 8.4 g/dL (12.0-16.0); LYMPHOCYTES # (AUTO) 1.6 (1.0-3.2); MEAN CORPUSCULAR HGB CONC 28.1 g/dL (31-35); MEAN CORPUSCULAR VOLUME 74.8 fL (81-99); MONOCYTES # (AUTO) 0.9 (0.2-0.8); MONOCYTES % 9.8 % (4.4-11.3); NEUTROPHILS % 67.3 % (38.7-80.0); PLATELET COUNT 218 x10e3/uL (140-360); RED CELL DISTRIBUTION WIDTH 16.9 % (11.7-14.4)
[2019-09-07 23:26] LABS: ALANINE AMINOTRANSFERASE 9 IU/L (0-55); ALBUMIN 3.3 g/dL (3.5-5.0); ALBUMIN/GLOBULIN RATIO 0.9 (0.8-2.0); ALKALINE PHOSPHATASE 113 IU/L (40-150); ANION GAP 12.7 mmol/L (8-16); CALCIUM 8.9 mg/dL (8.4-10.2); CARBON DIOXIDE 26 mmol/L (22-29); CHLORIDE 101 mmol/L (98-107); CREATINE KINASE 73 IU/L (29-168); EST GLOMERULAR FILTRATION RATE 44 ML/MIN (60-); GLUCOSE 146 mg/dL (74-118); POTASSIUM 3.7 mmol/L (3.5-5.1); SODIUM 136 mmol/L (136-145)
[2019-09-07 23:40] LABS: BLOOD UREA NITROGEN 21 mg/dL (7-26); BUN/CREATININE RATIO 16 (6-25)
[2019-09-08] VITALS (10 sets, daily range): BP systolic 114–157; BP diastolic 56–75
[2019-09-08] MEDS ORDERED: METHYLPREDNISOLONE SOD SUCC 125 MG/2ML VIAL IV ONE
[2019-09-08] MEDS ORDERED: ALBUTEROL/IPRATROPIUM 3 ML NEB NEB ONE
[2019-09-08] MEDS ORDERED: LEVALBUTEROL HCL SOLN NEBU 0.63 MG/3 ML NEB INH ONE (00:15)
[2019-09-08] MEDS ORDERED: IPRATROPIUM BROMIDE 0.02% 2.5 ML NEB NEB ONE (00:15)
--- NOTE | 2019-09-08 00:49 | Diagnostic Imaging Report ---
EXAMINATION: CHEST 2 VIEWS INDICATION: Short of breath COMPARISON: Chest radiograph 07/19/2019 FINDINGS: PA and lateral views TUBES and LINES: None. LUNGS: Lungs are well inflated. Increased pulmonary interstitial markings, and bilateral patchy hilar and scattered groundglass opacities. Right heart border is obscured. PLEURA: No pleural effusion or pneumothorax. HEART AND MEDIASTINUM: Cardiac size is mildly enlarged. BONES AND SOFT TISSUES: No acute osseous lesion. Soft tissues are unremarkable. UPPER ABDOMEN: No free air under the diaphragm. IMPRESSION: Findings concerning for multifocal pneumonia, pneumonitis, or pulmonary edema, on a background of chronic lung disease. Mild cardiomegaly. Signed by: Abner Kruger DO on 09/08/2019 12:46 AM
[2019-09-08] MEDS ORDERED: VANCOMYCIN 1GM/NS 250 ML 250 ML IV STA (01:25)
[2019-09-08] MEDS ORDERED: CEFEPIME 1GM/NS 0.9% 50 ML 50 ML IV STA (01:25)
--- NOTE | 2019-09-08 01:35 | NUR ---
FAMILY REPORTS DR. Rolf GUZMAN PCP; HOWEVER, PTS PAPERWORK LISTS DR. ANDERSON; REG AND ER MD AWARE
--- NOTE | 2019-09-08 02:03 | NUR ---
SPOKE TO PATIENT, PT STATES PCP HAS BEEN CHANGED TO DR. Panda ANDERSON DR. Jhon GUZMAN "DOES NOT COME TO THE HOSPITAL" PER PT; REG AND ER MD NOTIFIED
[2019-09-08] MEDS ORDERED: FAMOTIDINE20 MG PO (02:09)
[2019-09-08] MEDS ORDERED: GUAIFENESIN-CO118 M1 PO (02:09)
[2019-09-08] MEDS ORDERED: SODIUM CHLORIDE 0.9% 250ML 250 ML ONE (02:47)
[2019-09-08] MEDS ORDERED: INFLUENZA VIRUS VAC SPLIT INJ 0.5 ML SYR IM SCH (03:23)
[2019-09-08] MEDS ORDERED: PNEUMOCOCCAL VACCINE POLYVALENT 23 MCG/0.5 ML VIAL IM SCH (03:23)
--- NOTE | 2019-09-08 09:00 | NUR ---
pt alert resp even and unlabored, no distress noted, pt able to make needs known, no c/o pain at this time, pt wearing bipap at this time call light in reach
--- NOTE | 2019-09-08 09:20 | NUR ---
PT OFF UNIT FOR TESTING.
[2019-09-08] MEDS ORDERED: GUAIFENESIN/CODEINE 10 ML CUP PO PRN (10:00)
[2019-09-08] MEDS ORDERED: ALBUTEROL/IPRATROPIUM 3 ML NEB NEB PRN (10:00)
[2019-09-08] MEDS: VANCOMYCIN 1GM/NS 250 ML 250 ML IV SCH ×2 (10:30→21:31)
--- NOTE | 2019-09-08 10:47 | NUR ---
PT RETURNED TO UNIT RESP EVEN AND UNLABORED, CALL LIGHT IN REACH
[2019-09-08] MEDS ORDERED: ALBUTEROL/IPRATROPIUM 3 ML NEB NEB SCH (13:00)
[2019-09-08] MEDS: IPRATROPIUM BROMIDE 0.02% 2.5 ML NEB NEB SCH ×2 (13:00→19:55)
--- NOTE | 2019-09-08 13:09 | Diagnostic Imaging Report ---
EXAM: CT Chest WITHOUT intravenous contrast 09/08/2019 9:51 AM INDICATION: Shortness of breath, productive cough COMPARISON: Chest radiograph 09/08/2019 TECHNIQUE: Chest was scanned utilizing a multidetector helical scanner from the lung apex through the level of the adrenal glands without administration of IV contrast. Coronal and sagittal reformations were obtained. Routine protocol was performed. IV CONTRAST: None RADIATION DOSE: Total DLP: 566.7 mGy*cm. Dose modulation, iterative reconstruction, and/or weight based adjustment of the mA/kV was utilized to reduce the radiation dose to as low as reasonably achievable. COMPLICATIONS: None FINDINGS: LINES/ TUBES: None. LUNGS AND AIRWAYS: The central airways are patent. No focal consolidation. Bilateral lower lobe predominant smooth interlobular septal thickening and groundglass opacity consistent with interstitial and airspace pulmonary edema. There is tubular bronchiectasis, architectural distortion, and peripheral reticulations consistent with component of chronic interstitial lung disease. PLEURA: The pleural spaces are clear. HEART AND MEDIASTINUM: The thyroid gland is normal. No supraclavicular lymphadenopathy. Enlarged pretracheal lymph node measures up to 14 mm short axis (series 2 image 21). No hilar lymphadenopathy. Multichamber cardiomegaly. No pericardial effusion. Mild scattered atherosclerotic calcifications. UPPER ABDOMEN: Cholelithiasis without CT evidence of cholecystitis. No other focal abnormality of the partially visualized liver, spleen, pancreas, or adrenals. BONES: No acute osseous injury. No suspicious lytic blastic lesions. SOFT TISSUES: Unremarkable. IMPRESSION: Cardiomegaly and pulmonary edema on a background of interstitial lung disease. No focal pneumonia. Signed by: Danny Guzmán MD on 09/08/2019 1:05 PM
--- NOTE | 2019-09-08 13:47 | Consultation ---
DATE OF CONSULTATION: 09/08/2019 Pulmonary Consultation REASON FOR CONSULT: Shortness of breath and pneumonia. HISTORY OF PRESENT ILLNESS: Ms. Coreas is a 69-year-old female, very well known to me from previous admission and my office visit. The patient has history of extremely rough hospital course year and half ago with requiring initial admission for multilobar pneumonia developing ARDS, and the patient developed post-inflammatory fibrosis and scarring in the lung. She follows up with me in the office. She is on nebulizer treatment at home. She reported that she came in because of increasing shortness of breath and cough. According to the sister, the patient was progressively getting worse and shortness of breath was mostly on exertion. It was episodic, was associated with cough. She has been using cough syrup with codeine and Tessalon Perles. She follows up with me in the office. She was on Xopenex and now having increasing tremors because of Xopenex and would prefer using Atrovent. REVIEW OF SYSTEMS: GENERAL: Denies any fever or chills. HEAD: Denies any head trauma. ENT: Denies any earaches. CVS: Denies any chest pain. RESPIRATORY: Shortness of breath. GI: Denies any nausea or vomiting. The rest of the review of systems are negative except as in HPI. PAST MEDICAL HISTORY: 1. 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 The patient also has history of tracheostomy, which was removed almost 2 years ago. 2. Obstructive sleep apnea. 3. Morbid obesity. 4. Chronic kidney disease. 5. History of uterine cancer. FAMILY AND SOCIAL HISTORY: She does not smoke. Does not drink. Lives with excellent family support, sisters help with her. PHYSICAL EXAMINATION: VITAL SIGNS: Temperature 96.0, pulse of 78, blood pressure 141/67, respiratory rate of 18, and O2 saturation 98%. HEENT: Head is atraumatic and normocephalic. NECK: Supple. CHEST: Few crackles on the bases, right more than the left. ABDOMEN: Soft and nontender. EXTREMITIES: Pedal edema. NEUROLOGICAL: She is awake and alert. No focal neurologic deficit. LABORATORY DATA: White count of 8.9, hemoglobin 8.4, and platelets 218. Chemistry; sodium 136, potassium 3.7, chloride 101, BUN 21, and creatinine 1.2. Creatinine was 1.24 in last visit. Chest x-ray is showing evidence of possible pneumonia, however, it is extremely hard to determine pneumonia and her extensive fibrosis and scarring due to previous history of ARDS. ASSESSMENT/PLAN: Ms. Coreas is a 69-year-old female, well known to me. The patient has post-inflammatory fibrosis and scarring secondary to acute respiratory distress syndrome in the past, came in with worsening shortness of breath, increasing cough, and possibly had pneumonia versus exacerbation of the fibrosis. Current problem: 1. Possible pneumonia. 2. Acute exacerbation of the post-inflammatory fibrosis. 3. Morbid obesity. 4. Diabetes. PLAN: 1. Continue the patient on nebulizer treatment as ordered. The patient wants to change it to Atrovent only, as it is causing her to have some tremors. 2. Agree with IV Zosyn for possibility of pneumonia. 3. I will start the patient on low-dose steroids as well, as the patient has post-inflammatory scarring and may have exacerbation of the scarring. Blood cultures are pending. We will follow the results. No lactic acid was done. 4. CKD, which is stable. Discussed with the patient's family at bedside in detail. MD RENATO Lundberg/TALIB /[id number]
[2019-09-08] MEDS: PIPER-TAZ 3.375 GM 50 ML IV SCH ×2 (14:13→18:21)
[2019-09-08] MEDS: METHYLPREDNISOLONE SOD SUCC 40 MG/ML VIAL 1ML IV SCH ×2 (14:14→20:58)
[2019-09-08] MEDS ORDERED: DEXTROSE 50% SYRINGE 50 ML IV PRN ×2 (16:15→17:45)
--- NOTE | 2019-09-08 17:08 | History and Physical ---
CHIEF COMPLAINT: Coughing and shortness of breath for the past 2 to 3 days. Failed outpatient treatment. HISTORY OF PRESENT ILLNESS: The patient is a 69-year-old female, recent pneumonia past month, came back in again this time with increasing shortness of breath and coughing. The patient had a chest x-ray showed possible multilobar pneumonia and she is pending for CT of the chest. The patient at baseline using oxygen nasal cannula. She walks with a walker. PAST MEDICAL HISTORY: Obesity, hypertension, obstructive sleep apnea, post-inflammatory fibrosis, and history of respiratory distress syndrome 2 years ago. She had tracheostomy done with reverse, history of uterine cancer, status post hysterectomy, chronic kidney disease, diabetes type 2, and hypertension. PAST SURGICAL HISTORY: Hysterectomy, history of tracheostomy with reversal, history of PEG tube feeding with reversal, and abdominal surgery. SOCIAL HISTORY: The patient lives at home with her family, very well family support. No smoking. No alcohol consumption. ALLERGIES: TO NO KNOWN ALLERGIES. HOME MEDICATIONS: Pepcid, Lasix, metoprolol tartrate, nebulizer treatment, , insulin, and Zoloft. PHYSICAL EXAMINATION: VITAL SIGNS: Temperature is 98, blood pressure 141/67, pulse rate is 76, and respirations 22. GENERAL: The patient is awake and alert, not in any distress. HEENT: Normocephalic and atraumatic. Pupils reactive. Anicteric. NECK: Supple grossly. PULMONARY: Diminished breath sounds bilaterally with some coarses. CARDIOVASCULAR: S1 and S2. Regular rate and rhythm. ABDOMEN: Soft and morbidly obese. EXTREMITIES: No cyanosis or edema. NEUROLOGIC: No gross focal deficit. LABORATORY DATA: Sodium is 136, potassium 3.7, chloride 101, bicarb 26, BUN 21, creatinine 1.2, and glucose 146. WBC 8.9, hemoglobin 8.4, hematocrit 29.9, and platelets 218. Chest x-ray show possible multilobar pneumonia. IMPRESSION: 1. Possible multilobar pneumonia. If it is pneumonia, this could be consider healthcare-acquired pneumonia. 2. Baseline pulmonary fibrosis with previous severe infection. 3. Morbid obesity. 4. Oxygen dependency. 5. Chronic hypoxia. PLAN: Continue with antibiotics. CT of the chest without contrast. Consultation with Dr. Karl Becerra. Nebulizer treatments. continue oxygen support. We will continue with management and follow up closely. Insulin sliding scale. Home medication. MD ARNOLD Steele/MODL /[id number]
--- NOTE | 2019-09-08 19:12 | NUR ---
report given to to oncoming nurse.
[2019-09-08] MEDS: INSULIN REGULAR, HUMAN 100 UNIT/1 ML 3ML VIAL SQ SCH (20:57)
[2019-09-09] VITALS (8 sets, daily range): BP systolic 100–135; BP diastolic 55–80
[2019-09-09] MEDS: PIPER-TAZ 3.375 GM 50 ML IV SCH ×4 (00:27→18:19)
[2019-09-09] MEDS: IPRATROPIUM BROMIDE 0.02% 2.5 ML NEB NEB SCH ×3 (00:30→19:50)
[2019-09-09 05:53] LABS: BASOPHILS % 0.2 % (0.0-1.0); HEMATOCRIT 27.8 % (34.2-44.1); HEMOGLOBIN 7.7 g/dL (12.0-16.0); LYMPHOCYTES # (AUTO) 0.6 (1.0-3.2); LYMPHOCYTES % 10.4 % (18.0-39.1); MEAN CORPUSCULAR HEMOGLOBIN 20.6 pg (28-32); MEAN CORPUSCULAR HGB CONC 27.7 g/dL (31-35); MEAN CORPUSCULAR VOLUME 74.5 fL (81-99); MONOCYTES # (AUTO) 0.4 (0.2-0.8); MONOCYTES % 7.5 % (4.4-11.3); NEUTROPHILS # (AUTO) 4.7 (2.1-6.9); NEUTROPHILS % 81.2 % (38.7-80.0); PLATELET COUNT 170 x10e3/uL (140-360); RED BLOOD COUNT 3.73 x10e6/uL (3.6-5.1); RED CELL DISTRIBUTION WIDTH 16.6 % (11.7-14.4)
[2019-09-09] MEDS: METHYLPREDNISOLONE SOD SUCC 40 MG/ML VIAL 1ML IV SCH ×3 (06:08→20:58)
[2019-09-09 06:17] LABS: ANION GAP 13.5 mmol/L (8-16); CALCIUM 9.1 mg/dL (8.4-10.2); CREATININE, SERUM 1.22 mg/dL (0.57-1.11); POTASSIUM 4.5 mmol/L (3.5-5.1)
[2019-09-09] MEDS: INSULIN REGULAR, HUMAN 100 UNIT/1 ML 3ML VIAL SQ SCH ×4 (08:00→21:15)
[2019-09-09] MEDS: INSULIN GLARGINE 100 UNITS/ML VIAL SC SCH (08:30)
[2019-09-09] MEDS: METOPROLOL TARTRATE 25 MG TAB PO SCH (09:06)
[2019-09-09] MEDS: FAMOTIDINE 20 MG TAB PO SCH (09:06)
[2019-09-09] MEDS: SERTRALINE HCL 50 MG TAB PO SCH (09:06)
[2019-09-09] MEDS: VANCOMYCIN 1GM/NS 250 ML 250 ML IV SCH (09:18)
[2019-09-09] MEDS ORDERED: FUROSEMIDE INJ 10 MG/ML 4 ML VIAL IV ONE (09:45)
[2019-09-09] MEDS: DOXYCYCLINE HYCLATE TABLET 100 MG TAB PO SCH ×2 (10:02→20:58)
[2019-09-10] VITALS: BP 114/54
[2019-09-10] MEDS: PIPER-TAZ 3.375 GM 50 ML IV SCH ×3 (00:01→12:27)
[2019-09-10] MEDS: IPRATROPIUM BROMIDE 0.02% 2.5 ML NEB NEB SCH ×3 (01:20→13:00)
[2019-09-10 04:00] VITALS: BP 132/62
[2019-09-10] MEDS: METHYLPREDNISOLONE SOD SUCC 40 MG/ML VIAL 1ML IV SCH (05:13)
[2019-09-10 07:07] VITALS: BP 126/66
--- NOTE | 2019-09-10 07:14 | NUR ---
pt alert resp even and unlabored at this time no distress noted, pt easily aroused and able to make needs known, call light in reach.
[2019-09-10] MEDS: INSULIN REGULAR, HUMAN 100 UNIT/1 ML 3ML VIAL SQ SCH ×3 (07:30→11:30)
[2019-09-10] MEDS: DOXYCYCLINE HYCLATE TABLET 100 MG TAB PO SCH (08:59)
[2019-09-10] MEDS: FAMOTIDINE 20 MG TAB PO SCH (08:59)
[2019-09-10] MEDS: METOPROLOL TARTRATE 25 MG TAB PO SCH (08:59)
[2019-09-10] MEDS: SERTRALINE HCL 50 MG TAB PO SCH (08:59)
[2019-09-10] MEDS ORDERED: FUROSEMIDE INJ 10 MG/ML 4 ML VIAL IV SCH (09:00)
[2019-09-10] MEDS: INSULIN GLARGINE 100 UNITS/ML VIAL SC SCH (09:17)
[2019-09-10 10:15] VITALS: BP 126/66
[2019-09-10 11:14] VITALS: BP 102/52
[2019-09-10 13:06] LABS: % IRON SATURATION 3 % (15-50); IRON 16 ug/dL (50-170); TOTAL IRON BINDING CAPACITY 517 ug/dL (261-478); TRANSFERRIN 369 mg/dL (180-382)
--- NOTE | 2019-09-10 15:36 | Discharge Summary ---
PHOTO MASK PROCESSOR: Dr. Karl Becerra. FINAL DIAGNOSES: 1. Acute on chronic exacerbation of pulmonary fibrosis. 2. Acute on chronic diastolic dysfunction, congestive heart failure with fluid overload. 3. Obstructive sleep apnea, oxygen dependent. 4. Morbid obesity. SUMMARY: The patient is a 69-year-old female came in with increasing shortness of breath, wheezing. Thought that the patient may have healthcare acquired pneumonia on x-ray since the patient recently was in the hospital for further workup. There was no consolidation on a CT scan of the chest. The patient did better. She did receive some steroids, Solu-Medrol along with nebulizer treatment and antibiotics. She is doing much better now. The patient is otherwise stable. The patient will go home today. Follow up as an outpatient. She will go home with. Resume home medication. She every 4 hours as needed, doxycycline monohydrate 100 mg twice a day for seven days, Lasix 40 mg once a day and one at noontime if needed for increase in swelling. Prednisone 5 mg daily. The patient is otherwise stable. Discharged to home. Follow up as an outpatient. FOLLOWUP: The patient followup medication reconciliation. MD ARNOLD Steele/TALIB /[id number]
[2019-09-10 15:50] VITALS: BP 129/73
--- NOTE | 2019-09-10 18:10 | NUR ---
pt discharged home with family members, pt and family was educated on her medications, pt was asked to follow up with her PCP, pt iv site was removed no swelling no redness to site.
[2019-09-11] MEDS ORDERED: METHYLPREDNISOLONE SOD SUCC 40 MG/ML VIAL 1ML IV SCH (07:30)
== END 2019-09-10 18:11 | disposition home or self-care (01) | DRG 196 ==
LOC: ER 22:10 → ERHOLD 09-08 01:11 → MED/SURG2 09-08 02:22
PROVIDERS: ADMIT Internal Medicine; ATTEND Internal Medicine
DX: J84.10 Pulmonary fibrosis, unspecified (principal); I50.33 Acute on chronic diastolic (congestive) heart failure; Z68.43 Body mass index [BMI] 50.0-59.9, adult; R09.02 Hypoxemia; E66.01 Morbid (severe) obesity due to excess calories; Z99.81 Dependence on supplemental oxygen; E11.22 Type 2 diabetes mellitus with diabetic chronic kidney disease; N18.9 Chronic kidney disease, unspecified; G47.33 Obstructive sleep apnea (adult) (pediatric); Z85.42 Personal history of malignant neoplasm of other parts of uterus; D50.9 Iron deficiency anemia, unspecified
CPT/HCPCS: 36415; 71046; 71250; 80048; 80053; 82550; 82553; 82948; 83540; 83880; 84466; 84484; 85025; 87040; 93005; 94640; 94660; 96374; 97139; 99284; J0692; J1815; J1940; J2543; J2920; J2930; J3370; J7050

== ENCOUNTER 2020-05-25 13:14 | Inpatient (IN) | payer MEDICARE, OTHER ==
[~2020-05-25] VITALS: Ht 154.9 cm; Wt 126.6 kg
[~2020-05-25 13:14] MED LIST changes: +FAMOTIDINE20 MG PO; +FLUCONAZOLE100 MG PO; +FUROSEMIDE40 MG PO; +GUAIFENESIN-CO118 M1 PO; +PANTOPRAZOLE SO40 MG PO
--- NOTE | 2020-05-25 14:21 | Emergency Department Note ---
History of Present Illnes History of Present Illness Chief Complaint: General Medicine Complaints History of Present Illness This is a 69 year old female arrives to the ED with no complaints. Patient was told by home health nurse that her heart rate was low and to go to the emergency department. Patient states she was told us yesterday and home health nurse came again today to tell her to go to the emergency department. Patient states she feels fine and would like to be discharged home.. 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 Any updates have been documented here. Past Medical History Recent Fever: No Clinical Suspicion of Infectio: No New/Unexplained Change in Ment: No Past Medical History: Hypertension, Diabetes, COPD, A-Fib, Depression, Hyperlipedemia Other Medical History: Sleep Apnea ARDS o2 dependant 24 hrs a day Past Surgical History: Hysterectomy, Hernia Repair Other Surgery: Bowel Resection Social History Smoking Cessation: Former smoker Counseling Performed: No Alcohol Use: None Any Illegal Drug Use: No Other Last Tetanus: UTD Any Pre-Existing Lines (PICC,: No Review of Systems Review of Systems Constitutional: Reports no symptoms EENTM: Reports no symptoms Cardiovascular: Reports no symptoms, Reports as per HPI Respiratory: Reports no symptoms Gastrointestinal: Reports no symptoms Genitourinary: Reports no symptoms Musculoskeletal: Reports no symptoms Integumentary: Reports no symptoms Neurological: Reports no symptoms Psychological: Reports no symptoms Endocrine: Reports no symptoms Hematological/Lymphatic: Reports no symptoms Physical Exam Related Data Allergies: Coded Allergies: No Known Allergies (Unverified , 12/10/17) Triage Vital Signs Vital Signs Date Time Temp Pulse Resp B/P (MAP) Pulse Ox O2 Delivery O2 Flow Rate FiO2 05/25/20 13:35 98.4 92 20 118/67 97 Nasal Cannula 3.0 Vital signs reviewed: Yes Physical Exam CONSTITUTIONAL Constitutional: Present well-developed, Present morbidly obese HENT HENT: Present normocephalic, Present atraumatic, Present oropharynx clear/moist, Present nose normal HENT L/R: Present left ext ear normal, Present right ext ear normal EYES Eyes: Reports PERRL, Reports conjunctivae normal NECK Neck: Present ROM normal PULMONARY Pulmonary: Present effort normal, Present breath sounds normal CARDIOVASCULAR Cardiovascular: Present regular rhythm, Present heart sounds normal, Present capillary refill normal, Present normal rate GASTROINTESTINAL Abdominal: Present soft, Present nontender, Present bowel sounds normal GENITOURINARY Genitourinary: Present exam deferred SKIN Skin: Present warm, Present dry MUSCULOSKELETAL Musculoskeletal: Present ROM normal NEUROLOGICAL Neurological: Present alert, Present oriented x 3, Present no gross motor or sensory deficits PSYCHOLOGICAL Psychological: Present mood/affect normal, Present judgement normal Results Laboratory Lab results reviewed: Yes Imaging Imaging results reviewed: Yes Procedures 12 Lead ECG Interpretation ECG Interpretation : ECG: ECG 1 Prior ECG tracings: reviewed Rhythm: sinus rhythm Rate: normal QRS axis: normal ST segments normal: Yes T waves normal: Yes Clinical Impression: non-specific ECG Assessment & Plan Medical Decision Making MDM 69-year-old female arrives to the ED with complaints generalized malaise. Patient also weight gain. Patient admitted to the hospital for observation. Assessment & Plan Final Impression: (1) Chest pain Depart Disposition: HOME, SELF-CARE Last Vital Signs Date Time Temp Pulse Resp B/P (MAP) Pulse Ox O2 Delivery O2 Flow Rate FiO2 05/25/20 13:35 98.4 92 20 118/67 97 Nasal Cannula 3.0 Home Meds Reported Medications Levalbuterol Hcl (LEVALBUTEROL HCL) 1.25 Mg/3 Ml Vial.neb, 1.25 MG INH Q4HR, EACH 05/25/20 Benzonatate (BENZONATATE) 100 Mg Capsule, 100 MG PO PRN, CAP 05/25/20 Furosemide (FUROSEMIDE) 40 Mg Tablet, 40 MG PO BID, #30 TAB 10/11/19 Pantoprazole Sodium* (PROTONIX) 40 Mg Tablet.dr, 40 MG PO DAILY, TAB 10/11/19 Famotidine (FAMOTIDINE) 20 Mg Tab, 40 MG PO DAILY, #30 TAB 09/08/19 [Basaglar] No Conflict Check, 10 UNITS SC DAILY 07/19/19 Sertraline Hcl (ZOLOFT) 50 Mg Tablet, 50 MG PO DAILY, #30 TAB 07/19/19 Potassium Chloride* (K DUR*) 10 Meq Tabcr, 20 MEQ PO BID 07/19/19 Discontinued Reported Medications Metolazone (METOLAZONE) 5 Mg Tablet, 5 MG PO DAILY, #30 TAB 05/25/20 Metoprolol Tartrate (METOPROLOL TARTRATE) 25 Mg Tablet, 25 MG PO DAILY, TAB 07/19/19 KANNAN DELCID, May 25, 2020 14:21
[2020-05-25 14:57] LABS: BASOPHILS # (AUTO) 0.1 (0.0-0.1); BASOPHILS % 0.5 % (0.0-1.0); EOSINOPHILS # (AUTO) 0.2 (0.0-0.4); EOSINOPHILS % 1.6 % (0.0-6.0); HEMATOCRIT 45.5 % (34.2-44.1); LYMPHOCYTES # (AUTO) 0.9 (1.0-3.2); LYMPHOCYTES % 8.1 % (18.0-39.1); MEAN CORPUSCULAR HEMOGLOBIN 21.6 pg (28-32); MEAN CORPUSCULAR HGB CONC 28.6 g/dL (31-35); MEAN CORPUSCULAR VOLUME 75.6 fL (81-99); MONOCYTES # (AUTO) 0.6 (0.2-0.8); MONOCYTES % 5.8 % (4.4-11.3); NEUTROPHILS # (AUTO) 9.2 (2.1-6.9); NEUTROPHILS % 83.7 % (38.7-80.0); PLATELET COUNT 223 x10e3/uL (140-360); RED BLOOD COUNT 6.02 x10e6/uL (3.6-5.1); RED CELL DISTRIBUTION WIDTH 16.9 % (11.7-14.4)
--- NOTE | 2020-05-25 14:58 | NUR ---
pt has had daughter, sister both on phone on speaker demanding, work up xray, labs, ekg, ua and states sob with walking to restroom, demanding dr wagner be called. fm stating pt is being treated for uti and wanting recheck.
--- NOTE | 2020-05-25 15:04 | NUR ---
pt states she cannot use bedpan or walk or get up and down to use restroom. pt insisted on haris.
--- NOTE | 2020-05-25 15:08 | Diagnostic Imaging Report ---
EXAMINATION: CHEST SINGLE (PORTABLE) INDICATION: Shortness of breath COMPARISON: Chest CT 10/12/2019 FINDINGS: LINES/TUBES:None LUNGS:The lungs are moderately inflated. Left greater than right lower lung interstitial and airspace opacities. PLEURA:No pleural effusion or pneumothorax. MEDIASTINUM:The cardiomediastinal silhouette appears mildly enlarged. Atherosclerotic calcifications of the thoracic aorta. BONES/SOFT TISSUES:No acute osseous injury. ABDOMEN:No free air under the diaphragm. IMPRESSION: Left greater than right lower lung interstitial and airspace opacities may represent pulmonary interstitial and airspace edema. Superimposed pneumonia should be excluded clinically. Signed by: Danny Guzmán MD on 05/25/2020 3:04 PM
--- OUTSIDE RECORDS SUMMARY | 2020-05-25 15:08 | XMS REPORT | Continuity of Care Document ---
Author Author [facility] t Organization [facility] Address [address] [place] [address] Phone Unavailable Care Team Providers Care Accounting Advisory Services Manager Name Role Phone DWAIN ANDERSON MD PCP DWAIN ANDERSON Attphys Unavailable KILLARACELY ROCHA Attphys Unavailable DAVISBONIFACIO Attphys Unavailable DWAIN ANDERSON Admphys Unavailable KILLARACELY ROCHA Admphys Unavailable Payers Payer Name Policy Type Policy Number Effective Date Expiration Date [facility] [employer] [id number] 2019 00:00:00 [facility] Medicare A & B [id number] 2013 00:00:00 [facility] [employer] [id number] 2017 [facility]:00[facility] [id number] 2017 00:00:00 [facility] Problems Condition Name Condition Details Condition Category Status Onset Date Resolution Date Last Treatment Date Treating Clinician Comments Source Small bowel obstruction SBO (small bowel obstruction) Problem Active [facility] Umbilical hernia Umbilical hernia Problem Active [facility] Vomiting Vomiting Problem Active [facility] Atypical pneumonia Atypical pneumonia Problem Active [facility] Pulmonary embolism Pulmonary embolism Problem Active [facility] Healthcare-associated pneumonia HCAP (healthcare-associated pneu monia) Problem Active [facility] Sepsis Sepsis Problem Active [facility] Pneumonia Pneumonia Problem Active [facility] Allergies, Adverse Reactions, Alerts Allergy Name Allergy Type Status Severity Reaction(s) Onset Date Inacti ve Date Treating Clinician Comments Source No Known Allergies DA Active 2019-07-05 00:00:00 [facility] No Known Allergies DA Active U 2013-04-10 00:00:00 [facility] Medications Ordered Medication Name Filled Medication Name Start Date Stop Da te Current Medication? Ordering Clinician Indication Dosage Frequency Signature (SIG) Comments Components Source Chase Mortonkrystal Yes 10 Daily [facility] Famotidine 20 Mg Tab Famotidine 20 Mg Tab Yes [address] [facility] Furosemide 40 Mg Tablet Furosemide 40 Mg Tablet Yes [address] [facility] Metoprolol Tartrate 25 Mg Tablet Metoprolol Tartrate 25 Mg Tablet Yes [address] [facility] Pantoprazole Sodium (Protonix) 40 Mg Tablet. Pantopr azole Sodium (Protonix) 40 Mg Tablet. Yes [address] [facility] Potassium Chloride (K Dur*) 10 Meq Tabcr Potassium Chl oride (K Dur*) 10 Meq Tabcr Yes [address] [facility] Sertraline Hcl (Zoloft) 50 Mg Tablet Sertraline Hcl (Zoloft) 50 Mg Tablet Yes [address] [facility] Fluconazole 100 Mg Tablet, 100 Mg Oral Fluconazole 100 Mg Tablet , 100 Mg Oral 2019-10-18 00:00:[address] [facility] Guaifenesin/Codeine Phosphate (Guaifenes in-Codeine Liquid) 118 Ml Liquid, 5 Ml Oral Guaifenesin/Codeine Phosphate (Guaifenes in-Codeine Liquid) 118 Ml Liquid, 5 Ml Oral 2019-10-11 00:00:00 No 5 Every 4 Hours as needed for Cough [facility] Furosemide (Lasix) 40 Mg Tablet, 20 Mg Oral Furosemide (Lasix) 40 Mg Tablet, 20 Mg Oral 2019-09-10 00:00:[address] [facility] Tramadol Hcl (Ultram) 50 Mg Tablet, 50 Mg Oral Tramado l Hcl (Ultram) 50 Mg Tablet, 50 Mg Oral 2019-07-22 00:00:00 No 50 Every 6 Hours as needed for Moderate Pain (4-6) [facility] Aspirin 81 Mg Tab.chew, Oral Aspirin 81 Mg Tab.chew, Oral 2018-01-06 00:00:[address] [facility] Atenolol 50 Mg Tablet, 100 Oral Atenolol 50 Mg Tablet, 100 Ora l 2018-01-06 00:00:[address] [facility] Metformin Hcl 500 Mg Tablet, 500 Mg Oral Metformin Hcl 500 Mg Tablet, 500 Mg Oral 2018-01-06 00:00:00 No [address] [facility] Oxybutynin Chloride 5 Mg Tablet, 5 Mg Oral Oxybutynin Chloride 5 Mg Tablet, 5 Mg Oral 2018-01-06 00:00:00 No [address] [facility] Sertraline Hcl 50 Mg Tablet, 50 Mg Oral Sertraline Hcl 50 Mg Tablet, 50 Mg Oral 2018-01-06 00:00:[address] [facility] Simvastatin 20 Mg Tablet, 20 Mg Oral Simvastatin 20 Mg Tablet, 2 0 Mg Oral 2018-01-06 00:00:00 No 20 Today At 9:00PM [facility] Enalapril Maleate (Vasotec) 10 Mg Tablet, 20 Oral Gini lapril Maleate (Vasotec) 10 Mg Tablet, 20 Oral 2017-12-16 00:00:[address] [facility] Procedures Procedure Date / Time Performed Performing Clinician Sourc e EGD with biopsy 2019-10-14 00:00:[address] [facility] Computed tomography of chest without contrast 2019-10-12 00:00:[address] [facility] X-ray of chest, two views 2019-09-08 00:00:00 KANNAN DELCID CH, I [facility] Computed tomography of chest without contrast 2019-09-08 00:00:[address] [facility] Computed tomography of chest without contrast 2019-07-20 00: 00:[address] [facility] X-ray of chest, two views 2019-07-19 00:00:00 KANNAN DELCID [facility] Encounters Start Date/Time End Date/Time Encounter Type Admission Type [facility] Care Department Encounter ID Source 2019-10-11 14:20:00 2019-10-18 13:21:00 Discharged Inpatient 1 DWAIN ANDERSON [facility] [id number] [facility] 2019-09-08 01:11:00 2019-09-10 18:11:00 Discharged Inpatient 1 ARACELY WHITE [facility] [id number] [facility] 2019-07-20 00:36:00 2019-07-25 11:45:00 Discharged Inpatient 1 ARACELY WHITE [facility] [id number] [facility] 2019-06-24 12:26:00 2019-06-24 12:26:00 Registered Clinic [facility] [id number] [facility] 2019-06-12 19:21:00 2019-06-12 20:30:00 Departed Emergency Room [facility] [id number] [facility] 2017-12-10 20:11:00 2018-01-07 10:52:00 Discharged Inpatient ER DWAIN ANDERSON [facility] [id number] [facility] 2017-11-22 23:03:00 2017-11-27 18:47:00 Discharged Inpatient ER ARACELY WHITE [facility] [id number] [facility] Results Test Description Test Time Test Comments Results Result Comments Source Bedside Glucose 2019-10-18 11:37:00 Test Item Bedside Glucose (test code = 45712-8) 123 70-120 H Meter ID: [id number]. David's Medical CenterHypochromasia 2019-10-18 08:10:00* Test Item Value Reference Range Interpretation Comments Hypochromasia (test code = 728-6) SLIGHT [facility] CenterRed Cell Morphology Lreatnx4449-20-95 08:10:00* Test Item Value Reference Range Interpretation Comments Red Cell Morphology Comment (test code = 6742-1) ABNORMAL [facility] Bybjv5840-26-80 06:16:00* Test Item Value Reference Range Interpretation Comments Sodium Level (test code = 2951-2) 138 136-145 [facility] CenterPotassium Dnugk4866-04-74 06:16:00* Test Item Value Reference Range Interpretation Comments Potassium Level (test code = 2823-3) 3.3 3.5-5.[address] [facility] CenterChloride Atloe1388-24-85 06:16:00* Test Item Value Reference Range Interpretation Comments Chloride Level (test code = 2075-0) 95 98-[address] [facility] CenterCarbon Dioxide Aresa4904-69-02 06:16:00* Test Item Value Reference Range Interpretation Comments Carbon Dioxide Level (test code = 2028-9) 32 22-[address] [facility] CenterAnion Cpj6982-76-19 06:16:00* Test Item Value Reference Range Interpretation Comments Anion Gap (test code = 78389-5) 14.3 8-16 [facility] CenterBlood Urea Zieczdld0935-57-20 06:16:00* Test Item Value Reference Range Interpretation Comments Blood Urea Nitrogen (test code = 3094-0) 22 7-26 [facility] CenterCreatinine2019-12-31 06:16:00* Test Item Value Reference Range Interpretation Comments Creatinine (test code = 2160-0) 1.38 0.57-1.[address] [facility] CenterBUN/Creatinine Kzlqu6089-89-80 06:16:00* Test Item Value Reference Range Interpretation Comments BUN/Creatinine Ratio (test code = 3097-3) 16 6-25 [facility] CenterEstimat Glomerular Filtration Rate 2019-10-18 06:16:00* Test Item Value Reference Range Interpretation Comments Estimat Glomerular Filtration Rate (test code = 042008623) 38 >60 L Ranges were taken from the National Kidney Disease Education Program and the [facility] literature.Reference ranges:60 or greater: Prtjdq03-01 ( for 3 consecutive months): Chronic kidney disease 15 or less: Kidney failureSt. David's Medical CenterGlucose Kmpej1744-65-34 06:16:00* Test Item Value Reference Range Interpretation Comments Glucose Level (test code = HKE4603) 113 74-118 [facility] CenterCalcium Pylvp0699-54-24 06:16:00* Test Item Value Reference Range Interpretation Comments Calcium Level (test code = 94035-3) 9.1 8.4-10.2 [facility] CenterWhite Blood Sdykp9455-57-75 06:15:00* Test Item Value Reference Range Interpretation Comments White Blood Count (test code = 6690-2) 9.16 4.8-10.8 [facility] CenterRed Blood Rxcsu3171-86-98 06:15:00* Test Item Value Reference Range Interpretation Comments Red Blood Count (test code = 789-8) 4.86 3.6-5.1 [facility] CenterHemoglobin2019-12-31 06:15:00* Test Item Value Reference Range Interpretation Comments Hemoglobin (test code = 42094-0) 10.5 12.0-16.[address] [facility] CenterHematocrit2019-12-31 06:15:00* Test Item Value Reference Range Interpretation Comments Hematocrit (test code = 4544-3) 36.5 34.2-44.1 [facility] CenterMean Corpuscular Iptlto4427-13-38 06:15:00* Test Item Value Reference Range Interpretation Comments Mean Corpuscular Volume (test code = 787-2) 75.1 81-[address] [facility] CenterMean Corpuscular Dmsgwkmtdb2286-57-40 06:15:00* Test Item Value Reference Range Interpretation Comments Mean Corpuscular Hemoglobin (test code = 785-6) 21.6 28-[address] [facility] CenterMean Corpuscular Hemoglobin Concent 2019-10-18 06:15:00* Test Item Value Reference Range Interpretation Comments Mean Corpuscular Hemoglobin Concent (test code = 786-4) 28.8 31-[address] [facility] CenterRed Cell Distribution Gbcin8125-33-24 06:15:00* Test Item Value Reference Range Interpretation Comments Red Cell Distribution Width (test code = 23550-6) 20.6 11.7 -14.[address] [facility] CenterPlatelet Zswga5221-00-04 06:15:00* Test Item Value Reference Range Interpretation Comments Platelet Count (test code = 777-3) 190 140-360 [facility] CenterNeutrophils (%) (Auto)2019-10-18 06:15:00 * Test Item Value Reference Range Interpretation Comments Neutrophils (%) (Auto) (test code = 15460-8) 72.8 38.7-80.0 [facility] CenterLymphocytes (%) (Auto)2019-10-18 06:15:00 * Test Item Value Reference Range Interpretation Comments Lymphocytes (%) (Auto) (test code = 736-9) 14.3 18.0-39.[address] [facility] CenterMonocytes (%) (Auto)2019-10-18 06:15:00* Test Item Value Reference Range Interpretation Comments Monocytes (%) (Auto) (test code = 5905-5) 8.7 4.4-11.3 [facility] CenterEosinophils (%) (Auto)2019-10-18 06:15:00 * Test Item Value Reference Range Interpretation Comments Eosinophils (%) (Auto) (test code = 713-8) 3.4 0.0-6.0 [facility] CenterBasophils (%) (Auto)2019-10-18 06:15:00* Test Item Value Reference Range Interpretation Comments Basophils (%) (Auto) (test code = 706-2) 0.4 0.0-1.0 [facility] Medical CenterIM GRANULOCYTES %2019-10-18 06:15:00* Test Item Value Reference Range Interpretation Comments IM GRANULOCYTES % (test code = IM GRANULOCYTES %) 0.4 0.0- 1.0 [facility] CenterNeutrophils # (Auto)2019-10-18 06:15:00* Test Item Value Reference Range Interpretation Comments Neutrophils # (Auto) (test code = 751-8) 6.7 2.1-6.9 [facility] CenterLymphocytes # (Auto)2019-10-18 06:15:00* Test Item Value Reference Range Interpretation Comments Lymphocytes # (Auto) (test code = 97372-1) 1.3 1.0-3.2 [facility] CenterMonocytes # (Auto)2019-10-18 06:15:00* Test Item Value Reference Range Interpretation Comments Monocytes # (Auto) (test code = 742-7) 0.8 0.2-0.8 [facility] CenterEosinophils # (Auto)2019-10-18 06:15:00* Test Item Value Reference Range Interpretation Comments Eosinophils # (Auto) (test code = 711-2) 0.3 0.0-0.4 [facility] CenterBasophils # (Auto)2019-10-18 06:15:00* Test Item Value Reference Range Interpretation Comments Basophils # (Auto) (test code = 704-7) 0.0 0.0-0.1 [facility] CenterAbsolute Immature Granulocyte (auto 2019-10-18 06:15:00* Test Item Value Reference Range Interpretation Comments Absolute Immature Granulocyte (auto (kayla t code = Absolute Immature Granulocyte (auto) 0.04 0-0.1 [facility] CenterMALL BOWEL BCRYON6499-24-75 14:57:00 [facility] [address] [place] [address] Patient Name: COMPA CASAS MR #: [id number] : 1950 Age/Sex: 69/F Req #: [id number] Adm Physician: DWAIN ANDERSON MD Ordered by: DEISY JOHNSON MD Report #: [id number] Location: MED/SURG3 Room/Bed: 286-1 Procedure: [id number] D X/SMALL BOWEL SERIES Exam Date: Exam Time: REPORT STATUS: Signed SMALL BOWEL FOLLOW THROUGH HISTORY: Anemia DEVELOPMENT MGR(S): Isabel Fish MD Comparis on: None Procedure: Small bowel follow through exam was performed using o ral barium. Preliminary image was obtained before administration of contrast and serial overhead images were obtained after administration of oral barium. Fluoroscopy was performed and spot images were obtained. DISCUSSION: S COUT: The bowel gas pattern is non-obstructive. ESOPHAGUS: Motil ity: Within normal limits. Mucosa: Unremarkable. Distensibility: N ormal. GASTROESOPHAGEAL JUNCTION: No evidence of hiatal hernia. GASTR OESOPHAGEAL REFLUX: None observed. STOMACH: Normally distensible and demo nstrates normal contours and mucosal pattern. DUODENUM: Bulb and swe ep are normal. Duodenal-jejunal junction is in the normal expected position. Small bowel loops are normal in caliber and distribution. There is no evidence of fistula, mucosal changes, stricture or dilation. The transit ti me was within normal limits. Spot images of the terminal ileum appear rita l. Contrast opacifies the normal appearing appendix. Fluoroscopy Time: 0. 4 minutes Radiation Dose: 1.2 mGy IMPRESSION: Normal small bowel follo w-through. Signed by: Isabel Fish MD on 10/17/2019 3:00 PM Dictat ed By: ISABEL FISH MD 1500 Transcribed By: PHAM on 10/17/19 1500 COPY TO: DEISY JOHNSON MD Blood Khfkjut0842-84-92 12:27:00* Test Item Value Reference Range Interpretation Comments Blood Culture (test code = 70800216) NO GROWTH AFTER 5 DAYS, FINAL REPORT [facility] SmdespQhcnkt5398-07-02 04:04:00* Test Item Value Reference Range Interpretation Comments Folate (test code = 2284-8) 6.1 >3.0 A serum folate concentration of less than 3.1 ng/mL isconsidered to represent cl inical deficiency.Performed at: - [facility] [id number] Director: Paul Ann MD, Phone: [phone] Regional Medical Centertool Occult Dsiah9821-70-25 14:23:00* Test Item Value Reference Range Interpretation Comments Stool Occult Blood (test code = 2335-8) NEGATIVE NEGATIVE [facility] CenterCreatine Kinase QU6631-74-02 15:01:00* Test Item Value Reference Range Interpretation Comments Creatine Kinase MB (test code = 29406-1) 2.10 0-5.0 [facility] CenterTroponin [id number] 15:01:00* Test Item Value Reference Range Interpretation Comments Troponin I (test code = JMQ6859) < 0.001 0-0.300 [facility] CenterCreatine Lkfgqg4621-82-77 14:53:00* Test Item Value Reference Range Interpretation Comments Creatine Kinase (test code = 2157-6) 66 29-168 [facility] CenterCT CHEST OG6527-06-91 12:04:00 [place] [address] Patient Name: COMPA CASAS MR #: [id number] : 1950 Age/Sex: 69/F Req #: [id number] Adm Physician: DWAIN ANDERSON MD Ordered by: DWAIN ANDERSON MD Report #: [id number] Location: MED/SURG3 Room/Bed: [facility] Procedure: [id number] CT/CT CHEST WO Exam Date: 10/12/19 Exam Time: 1052 REPORT STATUS: Signed EXAM: CT Chest W ITHOUT contrast 10/12/2019 10:04 AM INDICATION: sob [id number] 10 52 COMPARISON: Chest radiograph 10/11/[address] chest 09/08/2019 TECHNI QUE: Chest was scanned utilizing a multidetector helical scanner from the lung apex through the level of the adrenal glands without administration of IV con trast. Absence of intravenous contrast decreases sensitivity for detection of lymphadenopathy and vascular pathology. Coronal and sagittal reformations were obtained. Routine protocol was performed. IV CONTRAST: None COMPLICATIONS: None RADIATION DOSE: Total DLP: 633.9 mGy*cm Estimated effective dose: (DLP x 0.015 x size factor) mSv CTDIvol has be en reviewed. It is below the limits set by the Radiation Protocol Committee (R PC). FINDINGS: LINES/ TUBES: None. LUNGS AND AIRWAYS: Since 08/20, there has been worsening diffuse bilateral mainly central alveolar opa cities with mild traction bronchiectasis and intra and interlobular septal thi ckening, mainly in the left upper lobe. No consolidations. Multiple tiny nodul es mainly peripherally in the right middle lobe and right upper lobe, for exam ple on series 3, image 34. Airways are normal. PLEURA: The pleural space s are clear. HEART AND MEDIASTINUM: The thyroid gland is normal. Multiple noncalcified mildly prominent mediastinal lymph nodes with the largest in the right lower paratracheal region, measuring 1.2 cm may be reactive. Cardiomega ly. Mild calcifications of the aortic root and mitral annulus. There is no per icardial effusion. No coronary artery calcifications. The thoracic aorta nor mal in size and associated with minimal calcifications in the aortic arch. The main pulmonary arteries enlarged, measuring 3.8 cm in diameter consistent with pulmonary hypertension. UPPER ABDOMEN: Cholelithiasis. 1 cm calcification to the left of the mesenteric abdominal aorta on series 2, image 56 is inde terminate and may reflect a calcified aneurysm of the splenic artery versus ca lcified lymph nodes, this is unchanged. BONES: The visualized bony thorax is within normal limits. SOFT TISSUES: Unremarkable. IMPRESSION: Acute on chronic pulmonary edema, worse since 09/08/2019. Diffuse reticular opacities mainly in the left lung are suggestive of nonspecific pattern of pulmonary fibrosis. No honeycombing. No consolidations or tree-in-bud pulmo nary nodules to suggest superimposed infection. Cardiomegaly with associa deana pulmonary hypertension. Signed by: Dr. Shelby Gaming M.D. on 10/12/2019 12:10 PM Dictated By: SHELBY GAMING MD [employer] Signed By: SHELBY GAMING MD on 10/12/19 1210 Transcribed By: LEONARDO BRAND on 10/12/19 1210 COPY TO: DWAIN ANDERSON MD Vitamin B12 Level 2019-10-12 11:11:00* Test Item Value Reference Range Interpretation Comments Vitamin B12 Level (test code = 19721-4) 316 213-816 [facility] CenterThyroid Stimulating Hormone (TSH) 2019-10-12 11:11:00* Test Item Value Reference Range Interpretation Comments Thyroid Stimulating Hormone (TSH) (test code = 81007-1) 0.363 0.350-4.940 [facility] CenterIron Xjomc4441-38-24 10:38:00* Test Item Value Reference Range Interpretation Comments Iron Level (test code = 2498-4) 14 50-[address] [facility] CenterTotal Iron Binding Izfdrqbj7884-94-35 10:38:00* Test Item Value Reference Range Interpretation Comments Total Iron Binding Capacity (test code = 2500-7) 409 261-[address] [facility] CenterPercent Iron Kszimzzaay9026-13-00 10:38:00* Test Item Value Reference Range Interpretation Comments Percent Iron Saturation (test code = 2502-3) 3 15-[address] [facility] CenterTransferrin2019-12-25 10:38:00* Test Item Value Reference Range Interpretation Comments Transferrin (test code = 3034-6) 292 180-382 [facility] CenterTotal Aitaguqrh8408-07-14 06:43:00* Test Item Value Reference Range Interpretation Comments Total Bilirubin (test code = 1975-2) 0.5 0.2-1.2 [facility] CenterAspartate Amino Transf (AST/SGOT) 2019-10-12 06:43:00* Test Item Value Reference Range Interpretation Comments Aspartate Amino Transf (AST/SGOT) (test code = Aspartate Amino Transf (AST/SGOT)) 13 5-34 [facility] CenterAlanine Aminotransferase (ALT/SGPT) 2019-10-12 06:43:00* Test Item Value Reference Range Interpretation Comments Alanine Aminotransferase (ALT/SGPT) (test code = 1742-6) 8 0-55 [facility] CenterTotal Ctxcuso2624-47-69 06:43:00* Test Item Value Reference Range Interpretation Comments Total Protein (test code = 2885-2) 6.2 6.5-8.[address] [facility] CenterAlbumin2019-12-25 06:43:00* Test Item Value Reference Range Interpretation Comments Albumin (test code = 1751-7) 2.9 3.5-5.[address] [facility] CenterGlobulin2019-12-25 06:43:00* Test Item Value Reference Range Interpretation Comments Globulin (test code = 85743-5) 3.3 2.3-3.5 [facility] CenterAlbumin/Globulin Dpwjx0675-38-43 06:43:00 * Test Item Value Reference Range Interpretation Comments Albumin/Globulin Ratio (test code = 1759-0) 0.9 0.8-2.0 [facility] CenterAlkaline Fujifekpqms3607-23-76 06:43:00* Test Item Value Reference Range Interpretation Comments Alkaline Phosphatase (test code = 6768-6) 104 40-150 [facility] CenterInfluenza Virus Types A,B Antigen 2019-10-11 12:59:00* Test Item Value Reference Range Interpretation Comments Influenza Virus Types A,B Antigen (test code = 40780-2) NEGATIVE NEGATIVE [facility] CenterB-Type Natriuretic Zafiico9698-63-73 12:57:00* Test Item Value Reference Range Interpretation Comments B-Type Natriuretic Peptide (test code = 49509-0) 130.1 0-[address] [facility] CenterMagnesium Rdomt9825-72-34 12:48:00* Test Item Value Reference Range Interpretation Comments Magnesium Level (test code = 57507-4) 2.0 1.3-2.1 [facility] CenterProthrombin Cthx5768-26-17 12:46:00* Test Item Value Reference Range Interpretation Comments Prothrombin Time (test code = 5902-2) 13.9 11.9-14.5 [facility] CenterProthromb Time International Ratio 2019-10-11 12:46:00* Test Item Value Reference Range Interpretation Comments Prothromb Time International Ratio (test code = 6301-6) 1.02 Oral Anticoagulant Therapy INR Values:1. Low Intensity Therapy 1.5 - 2.02 . Moderate Intensity Therapy 2.0 - 3.03. High Intensity Therapy(1) 2.5 - 3. 54. High Intensity Therapy(2) 3.0 - 4.05. Panic Value INR > 5.0 [facility] Medical CenterActivated Partial Thromboplast Time 2019-10-11 12:46:00* Test Item Value Reference Range Interpretation Comments Activated Partial Thromboplast Time (test code = 78409-2) 29.2 23.8-35.5 [facility] CenterCHEST SINGLE (PORTABLE)2019-10-11 12:26:00 [place] [address] Patient Name: COMPA CASAS MR #: [id number] : 1950 Age/Sex: 69/F Req #: [id number] Adm Physician: Ordered by: HUMZA FAYE MD Report #: [id number] Location: ER Room/Bed: Procedure: [id number] DX /CHEST SINGLE (PORTABLE) Exam Date: 10/11/19 Exam Ti me: 1205 REPORT STATUS: Signed E XAMINATION: CHEST SINGLE (PORTABLE) INDICATION: Shortness of breath COMPARISON: Chest radiograph of 09/08/2019 FINDINGS: LINES/TUB ES:EKG leads overlie the chest. LUNGS:The lungs are moderately inflated. Bi lateral lower lung predominant airspace opacities left greater than right. PLEURA:No pleural effusion or pneumothorax. MEDIASTINUM:The cardia medias tinal silhouette is mildly enlarged. BONES/SOFT TISSUES:No acute osseous in jury. ABDOMEN:No free air under the diaphragm. IMPRESSION: Bilat eral lower lung predominant airspace opacities left greater than right may rep resent asymmetric pulmonary edema versus superimposed aspiration or pneumonia. Signed by: Isabel Fish MD on 10/11/2019 12:31 PM Dictated By: SUJATA FISH MD 1231 Transcribed By: PHAM on 10/11/19 1231 COPY TO: HUMZA FAYE MD Iron Vksnx2738-80-44 13:13:00* Test Item Value Reference Range Interpretation Comments Iron Level (test code = 2498-4) 16 50-[address] [facility] CenterTotal Iron Binding Hwomkekk7186-40-95 13:13:00* Test Item Value Reference Range Interpretation Comments Total Iron Binding Capacity (test code = 2500-7) 517 261-[address] [facility] CenterPercent Iron Gqfqexzgmv8737-09-57 13:13:00* Test Item Value Reference Range Interpretation Comments Percent Iron Saturation (test code = 2502-3) 3 15-[address] [facility] CenterTransferrin2019-11-23 13:13:00* Test Item Value Reference Range Interpretation Comments Transferrin (test code = 3034-6) 369 180-382 [facility] CenterBedside Ziwmmrf4555-86-47 08:44:00* Test Item Value Reference Range Interpretation Comments Bedside Glucose (test code = 27347-5) 211 70-120 H Meter ID: [id number] [facility] 2019-[facility]-10 01:40:00* Test Item Value Reference Range Interpretation Comments Blood Culture (test code = 44006452) NO GROWTH AFTER 48 HOURS [facility] Owhpv7580-19-53 06:19:00* Test Item Value Reference Range Interpretation Comments Sodium Level (test code = 2951-2) 141 136-145 [facility] CenterPotassium Ssicd7974-45-40 06:19:00* Test Item Value Reference Range Interpretation Comments Potassium Level (test code = 2823-3) 4.5 3.5-5.1 [facility] CenterChloride Jbzpi6548-97-25 06:19:00* Test Item Value Reference Range Interpretation Comments Chloride Level (test code = 2075-0) 103 98-107 [facility] CenterCarbon Dioxide Chqje5413-31-57 06:19:00* Test Item Value Reference Range Interpretation Comments Carbon Dioxide Level (test code = 2028-9) 29 22-29 [facility] CenterAnion Vlp0747-33-70 06:19:00* Test Item Value Reference Range Interpretation Comments Anion Gap (test code = 34377-0) 13.5 8-16 [facility] CenterBlood Urea Hpqwtutq0142-64-03 06:19:00* Test Item Value Reference Range Interpretation Comments Blood Urea Nitrogen (test code = 3094-0) 24 7-26 [facility] CenterCreatinine2019-11-22 06:19:00* Test Item Value Reference Range Interpretation Comments Creatinine (test code = 2160-0) 1.22 0.57-1.[address] [facility] CenterBUN/Creatinine Yhqhw0045-23-63 06:19:00* Test Item Value Reference Range Interpretation Comments BUN/Creatinine Ratio (test code = 3097-3) 20 6-25 [facility] CenterEstimat Glomerular Filtration Rate 2019-09-09 06:19:00* Test Item Value Reference Range Interpretation Comments Estimat Glomerular Filtration Rate (test code = 062939150) 43 >60 L Ranges were taken from the National Kidney Disease Education Program and the [facility] literature.Reference ranges:60 or greater: Edeznn87-19 ( for 3 consecutive months): Chronic kidney disease 15 or less: Kidney failureSt. David's Medical CenterGlucose Owmra9863-09-62 06:19:00* Test Item Value Reference Range Interpretation Comments Glucose Level (test code = OQP5111) 165 74-[address] [facility] CenterCalcium Aqcjj3683-13-53 06:19:00* Test Item Value Reference Range Interpretation Comments Calcium Level (test code = 14541-4) 9.1 8.4-10.2 [facility] CenterWhite Blood Vkyxp7663-53-90 06:01:00* Test Item Value Reference Range Interpretation Comments White Blood Count (test code = 6690-2) 5.75 4.8-10.8 [facility] CenterRed Blood Rjxfk7964-50-73 06:01:00* Test Item Value Reference Range Interpretation Comments Red Blood Count (test code = 789-8) 3.73 3.6-5.1 [facility] CenterHemoglobin2019-11-22 06:01:00* Test Item Value Reference Range Interpretation Comments Hemoglobin (test code = 96450-1) 7.7 12.0-16.[address] [facility] CenterHematocrit2019-11-22 06:01:00* Test Item Value Reference Range Interpretation Comments Hematocrit (test code = 4544-3) 27.8 34.2-44.[address] [facility] CenterMean Corpuscular Qorutw4942-39-64 06:01:00* Test Item Value Reference Range Interpretation Comments Mean Corpuscular Volume (test code = 787-2) 74.5 81-[address] [facility] CenterMean Corpuscular Saxlnctcag9051-74-45 06:01:00* Test Item Value Reference Range Interpretation Comments Mean Corpuscular Hemoglobin (test code = 785-6) 20.6 28-[address] [facility] CenterMean Corpuscular Hemoglobin Concent 2019-09-09 06:01:00* Test Item Value Reference Range Interpretation Comments Mean Corpuscular Hemoglobin Concent (test code = 786-4) 27.7 31-[address] [facility] CenterRed Cell Distribution Xzomx4375-96-56 06:01:00* Test Item Value Reference Range Interpretation Comments Red Cell Distribution Width (test code = 76065-4) 16.6 11.7 -14.[address] [facility] CenterPlatelet Yazbb5463-86-75 06:01:00* Test Item Value Reference Range Interpretation Comments Platelet Count (test code = 777-3) 170 140-360 [facility] CenterNeutrophils (%) (Auto)2019-09-09 06:01:00 * Test Item Value Reference Range Interpretation Comments Neutrophils (%) (Auto) (test code = 45486-8) 81.2 38.7-80.[address] [facility] CenterLymphocytes (%) (Auto)2019-09-09 06:01:00 * Test Item Value Reference Range Interpretation Comments Lymphocytes (%) (Auto) (test code = 736-9) 10.4 18.0-39.[address] [facility] CenterMonocytes (%) (Auto)2019-09-09 06:01:00* Test Item Value Reference Range Interpretation Comments Monocytes (%) (Auto) (test code = 5905-5) 7.5 4.4-11.3 [facility] CenterEosinophils (%) (Auto)2019-09-09 06:01:00 * Test Item Value Reference Range Interpretation Comments Eosinophils (%) (Auto) (test code = 713-8) 0.0 0.0-6.0 [facility] CenterBasophils (%) (Auto)2019-09-09 06:01:00* Test Item Value Reference Range Interpretation Comments Basophils (%) (Auto) (test code = 706-2) 0.2 0.0-1.0 [facility] CenterIM GRANULOCYTES %2019-09-09 06:01:00* Test Item Value Reference Range Interpretation Comments IM GRANULOCYTES % (test code = IM GRANULOCYTES %) 0.7 0.0- 1.0 [facility] CenterNeutrophils # (Auto)2019-09-09 06:01:00* Test Item Value Reference Range Interpretation Comments Neutrophils # (Auto) (test code = 751-8) 4.7 2.1-6.9 [facility] CenterLymphocytes # (Auto)2019-09-09 06:01:00* Test Item Value Reference Range Interpretation Comments Lymphocytes # (Auto) (test code = 91824-2) 0.6 1.0-3.[address] [facility] CenterMonocytes # (Auto)2019-09-09 06:01:00* Test Item Value Reference Range Interpretation Comments Monocytes # (Auto) (test code = 742-7) 0.4 0.2-0.8 [facility] CenterEosinophils # (Auto)2019-09-09 06:01:00* Test Item Value Reference Range Interpretation Comments Eosinophils # (Auto) (test code = 711-2) 0.0 0.0-0.4 [facility] CenterBasophils # (Auto)2019-09-09 06:01:00* Test Item Value Reference Range Interpretation Comments Basophils # (Auto) (test code = 704-7) 0.0 0.0-0.1 [facility] CenterAbsolute Immature Granulocyte (auto 2019-09-09 06:01:00* Test Item Value Reference Range Interpretation Comments Absolute Immature Granulocyte (auto (kayla t code = Absolute Immature Granulocyte (auto) 0.04 0-0.1 [facility] Medical CenterCT CHEST GH2580-74-49 12:59:00 [place] [address] Patient Name: COMPA CASAS MR #: [id number] : 1950 Age/Sex: 69/F Req #: [id number] Adm Physician: ARACELY WHITE MD Ordered by: DWAIN ANDERSON MD Report #: [id number] [facility] Room/Bed: [facility] Procedure: [id number] CT/C T CHEST WO Exam Date: 09/08/19 Exam Time: 1030 REPORT STATUS: Signed EXAM: CT Chest WITHOUT intravenous contrast 09/08/2019 9:51 AM INDICATION: Shortness of martha th, productive cough COMPARISON: Chest radiograph 09/08/2019 TECHNIQUE: Ch est was scanned utilizing a multidetector helical scanner from the lung apex t hrough the level of the adrenal glands without administration of IV contrast. Coronal and sagittal reformations were obtained. Routine protocol was performe d. IV CONTRAST: None RADIATION DOSE: Total DLP: 566.7 mGy*cm. Dose modula tion, iterative reconstruction, and/or weight based adjustment of the mA/kV wa s utilized to reduce the radiation dose to as low as reasonably achievable. COMPLICATIONS: None FINDINGS: LINES/ TUBES: None. LUNGS AND AIRW AYS: The central airways are patent. No focal consolidation. Bilateral lower lobe predominant smooth interlobular septal thickening and groundglass opacity consistent with interstitial and airspace pulmonary edema. There is tubular bronchiectasis, architectural distortion, and peripheral reticulations consist ent with component of chronic interstitial lung disease. PLEURA: The pleura l spaces are clear. HEART AND MEDIASTINUM: The thyroid gland is normal. No supraclavicular lymphadenopathy. Enlarged pretracheal lymph node measures up to 14 mm short axis (series 2 image 21). No hilar lymphadenopathy. Multichamb er cardiomegaly. No pericardial effusion. Mild scattered atherosclerotic calci fications. UPPER ABDOMEN: Cholelithiasis without CT evidence of cholecystit is. No other focal abnormality of the partially visualized liver, spleen, panc reas, or adrenals. BONES: No acute osseous injury. No suspicious lytic bl astic lesions. SOFT TISSUES: Unremarkable. IMPRESSION: Cardiomegaly and pulmonary edema on a background of interstitial lung disease. No focal pn eumonia. Signed by: Isabel Fish MD on 09/08/2019 1:05 PM Dictated By : ISABEL FISH MD 1306 Trans cribed By: PHAM on 09/08/19 1305 COPY TO: DWAIN ANDERSON MD CHEST 2 GLMRV3361-53-00 00:43:00 [facility] [address] [place] [address] Patient Name: COMPA CASAS MR #: [id number] : 1950 Age/Sex: 69/F Req #: [id number] Adm Physician: Ordered by: KANNAN DELCID DO Report #: [id number] Location: ER Room/Bed: Procedure: [id number] DX/CHEST 2 VIEWS Exam Date: 09/08/19 Exam Time: 0000 REPORT STATUS: Signed EXAMINAT ION: CHEST 2 VIEWS INDICATION: Short of breath COMPARISON: Chest radiograph 07/19/2019 FINDINGS: PA and lateral views TUBES and LINES: None. LUNGS: Lungs are well inflated. Increased pulmonary int erstitial markings, and bilateral patchy hilar and scattered groundglass opaci ties. Right heart border is obscured. PLEURA: No pleural effusion or pne umothorax. HEART AND MEDIASTINUM: Cardiac size is mildly enlarged. BONES AND SOFT TISSUES: No acute osseous lesion. Soft tissues are unremark able. UPPER ABDOMEN: No free air under the diaphragm. IMPRESSION: Findings concerning for multifocal pneumonia, pneumonitis, or pulmonary ed maribel, on a background of chronic lung disease. Mild cardiomegaly. Signed by: Abner Mandel DO on 09/08/2019 12:46 AM Dictated By: ABNER REDD DO Transcri bed By: PHAM on 09/08/1945 COPY TO: KANNAN DELCID DO B- Type Natriuretic Ynogkcy8368-27-76 23:46:00* Test Item Value Reference Range Interpretation Comments B-Type Natriuretic Peptide (test code = 29069-0) 125.6 0-[address] [facility] CenterCreatine Kinase OZ9040-76-24 23:35:00* Test Item Value Reference Range Interpretation Comments Creatine Kinase MB (test code = 15045-7) 2.00 0-5.0 [facility] CenterTroponin [id number] 23:35:00* Test Item Value Reference Range Interpretation Comments Troponin I (test code = TMU8097) < 0.001 0-0.300 [facility] CenterTotal Zsnypizio5703-83-03 23:27:00* Test Item Value Reference Range Interpretation Comments Total Bilirubin (test code = 1975-2) 0.5 0.2-1.2 [facility] CenterAspartate Amino Transf (AST/SGOT) 2019-09-07 23:27:00* Test Item Value Reference Range Interpretation Comments Aspartate Amino Transf (AST/SGOT) (test code = Aspartate Amino Transf (AST/SGOT)) 18 5-34 [facility] CenterAlanine Aminotransferase (ALT/SGPT) 2019-09-07 23:27:00* Test Item Value Reference Range Interpretation Comments Alanine Aminotransferase (ALT/SGPT) (test code = 1742-6) 9 0-55 [facility] CenterTotal Qmzsxhr6295-21-59 23:27:00* Test Item Value Reference Range Interpretation Comments Total Protein (test code = 2885-2) 7.0 6.5-8.1 [facility] CenterAlbumin2019-11-20 23:27:00* Test Item Value Reference Range Interpretation Comments Albumin (test code = 1751-7) 3.3 3.5-5.[address] [facility] CenterGlobulin2019-11-20 23:27:00* Test Item Value Reference Range Interpretation Comments Globulin (test code = 00880-7) 3.7 2.3-3.[address] [facility] CenterAlbumin/Globulin Gbyfp4398-66-12 23:27:00 * Test Item Value Reference Range Interpretation Comments Albumin/Globulin Ratio (test code = 1759-0) 0.9 0.8-2.0 [facility] CenterAlkaline Wautgodoxws8341-98-81 23:27:00* Test Item Value Reference Range Interpretation Comments Alkaline Phosphatase (test code = 6768-6) 113 40-150 [facility] CenterCreatine Ssqkos7582-92-83 23:27:00* Test Item Value Reference Range Interpretation Comments Creatine Kinase (test code = 2157-6) 73 29-168 [facility] CenterBedside Rbjxyry2573-49-41 08:15:00* Test Item Value Reference Range Interpretation Comments Bedside Glucose (test code = 00700-9) 94 70-120 Meter ID: [id number]. [facility] Health [facility] HospitalBlood Culture 2019-07-24 22:34:00* Test Item Value Reference Range Interpretation Comments Blood Culture (test code = 89518297) NO GROWTH AFTER 5 DAYS, FINAL REPORT [facility] Centerodium Zeoxk7700-36-82 06:49:00* Test Item Value Reference Range Interpretation Comments Sodium Level (test code = 2951-2) 142 136-145 [facility] CenterPotassium Pstzh8981-05-45 06:49:00* Test Item Value Reference Range Interpretation Comments Potassium Level (test code = 2823-3) 4.1 3.5-5.1 [facility] CenterChloride Ckubm2847-83-84 06:49:00* Test Item Value Reference Range Interpretation Comments Chloride Level (test code = 2075-0) 102 98-107 [facility] CenterCarbon Dioxide Xbjki5373-61-03 06:49:00* Test Item Value Reference Range Interpretation Comments Carbon Dioxide Level (test code = 2028-9) 31 22-[address] [facility] CenterAnion Pch8372-61-94 06:49:00* Test Item Value Reference Range Interpretation Comments Anion Gap (test code = 81461-6) 13.1 8-16 [facility] CenterBlood Urea Ghpepxbh0682-27-12 06:49:00* Test Item Value Reference Range Interpretation Comments Blood Urea Nitrogen (test code = 3094-0) 30 7-[address] [facility] CenterCreatinine2019-10-06 06:49:00* Test Item Value Reference Range Interpretation Comments Creatinine (test code = 2160-0) 1.24 0.57-1.[address] [facility] CenterBUN/Creatinine Bcmpa1389-75-22 06:49:00* Test Item Value Reference Range Interpretation Comments BUN/Creatinine Ratio (test code = 3097-3) 24 6-25 [facility] CenterEstimat Glomerular Filtration Rate 2019-07-24 06:49:00* Test Item Value Reference Range Interpretation Comments Estimat Glomerular Filtration Rate (test code = 040821592) 43 >60 L Ranges were taken from the National Kidney Disease Education Program and the [facility] Kidney Foundation literature.Reference ranges:60 or greater: Curfbz23-27 ( for 3 consecutive months): Chronic kidney disease 15 or less: Kidney failureSt. David's Medical CenterGlucose Loegg8658-70-50 06:49:00* Test Item Value Reference Range Interpretation Comments Glucose Level (test code = LNM3083) 100 74-118 [facility] CenterCalcium Oitkz8021-71-05 06:49:00* Test Item Value Reference Range Interpretation Comments Calcium Level (test code = 07846-2) 8.7 8.4-10.2 [facility] CenterWhite Blood Qbmqe2565-21-53 06:31:00* Test Item Value Reference Range Interpretation Comments White Blood Count (test code = 6690-2) 7.50 4.8-10.8 [facility] CenterRed Blood Enpyp6513-85-88 06:31:00* Test Item Value Reference Range Interpretation Comments Red Blood Count (test code = 789-8) 3.81 3.6-5.1 [facility] CenterHemoglobin2019-10-06 06:31:00* Test Item Value Reference Range Interpretation Comments Hemoglobin (test code = 08265-7) 8.6 12.0-16.[address] [facility] CenterHematocrit2019-10-06 06:31:00* Test Item Value Reference Range Interpretation Comments Hematocrit (test code = 4544-3) 29.9 34.2-44.[address] [facility] CenterMean Corpuscular Ucvqzv8381-89-21 06:31:00* Test Item Value Reference Range Interpretation Comments Mean Corpuscular Volume (test code = 787-2) 78.5 81-[address] [facility] CenterMean Corpuscular Tnsfrszwde0985-34-79 06:31:00* Test Item Value Reference Range Interpretation Comments Mean Corpuscular Hemoglobin (test code = 785-6) 22.6 28-[address] [facility] CenterMean Corpuscular Hemoglobin Concent 2019-07-24 06:31:00* Test Item Value Reference Range Interpretation Comments Mean Corpuscular Hemoglobin Concent (test code = 786-4) 28.8 31-[address] [facility] CenterRed Cell Distribution Kirsg2487-07-14 06:31:00* Test Item Value Reference Range Interpretation Comments Red Cell Distribution Width (test code = 57438-8) 16.0 11.7 -14.[address] [facility] CenterPlatelet Efzsa9351-48-15 06:31:00* Test Item Value Reference Range Interpretation Comments Platelet Count (test code = 777-3) 230 140-360 [facility] CenterNeutrophils (%) (Auto)2019-07-24 06:31:00 * Test Item Value Reference Range Interpretation Comments Neutrophils (%) (Auto) (test code = 81774-9) 64.0 38.7-80.0 [facility] CenterLymphocytes (%) (Auto)2019-07-24 06:31:00 * Test Item Value Reference Range Interpretation Comments Lymphocytes (%) (Auto) (test code = 736-9) 25.3 18.0-39.1 [facility] CenterMonocytes (%) (Auto)2019-07-24 06:31:00* Test Item Value Reference Range Interpretation Comments Monocytes (%) (Auto) (test code = 5905-5) 9.6 4.4-11.3 [facility] CenterEosinophils (%) (Auto)2019-07-24 06:31:00 * Test Item Value Reference Range Interpretation Comments Eosinophils (%) (Auto) (test code = 713-8) 0.3 0.0-6.0 [facility] CenterBasophils (%) (Auto)2019-07-24 06:31:00* Test Item Value Reference Range Interpretation Comments Basophils (%) (Auto) (test code = 706-2) 0.3 0.0-1.0 [facility] CenterIM GRANULOCYTES %2019-07-24 06:31:00* Test Item Value Reference Range Interpretation Comments IM GRANULOCYTES % (test code = IM GRANULOCYTES %) 0.5 0.0- 1.0 [facility] CenterNeutrophils # (Auto)2019-07-24 06:31:00* Test Item Value Reference Range Interpretation Comments Neutrophils # (Auto) (test code = 751-8) 4.8 2.1-6.9 [facility] CenterLymphocytes # (Auto)2019-07-24 06:31:00* Test Item Value Reference Range Interpretation Comments Lymphocytes # (Auto) (test code = 14575-7) 1.9 1.0-3.2 [facility] CenterMonocytes # (Auto)2019-07-24 06:31:00* Test Item Value Reference Range Interpretation Comments Monocytes # (Auto) (test code = 742-7) 0.7 0.2-0.8 [facility] CenterEosinophils # (Auto)2019-07-24 06:31:00* Test Item Value Reference Range Interpretation Comments Eosinophils # (Auto) (test code = 711-2) 0.0 0.0-0.4 [facility] CenterBasophils # (Auto)2019-07-24 06:31:00* Test Item Value Reference Range Interpretation Comments Basophils # (Auto) (test code = 704-7) 0.0 0.0-0.1 [facility] CenterAbsolute Immature Granulocyte (auto 2019-07-24 06:31:00* Test Item Value Reference Range Interpretation Comments Absolute Immature Granulocyte (auto (kayla t code = Absolute Immature Granulocyte (auto) 0.04 0-0.1 [facility] CenterMODIFIED BA. WQTOCRF4310-18-76 08:39:00 [facility] [address] [place] [address] Patient Name: COMPA CASAS MR #: [id number] : 1950 Age/Sex: 69/F Req #: [id number] Adm Physician: ARACELY WHITE MD Ordered by: Oscar Stuart NP Report #: [id number] Location: MED/SURG2 Room/Bed: [facility] Procedure: [id number] DX/MODIFIED BA. SWALLOW Exam Date: 07/21/19 Exam Brennan e: 0810 REPORT STATUS: Signed NV OCEDURE: X-RAY MODIFIED BARIUM SWALLOW COMPARISON: Chest CT of 07/20/2019. INDICATION: Pneumonia, sepsis Radiation Details: Fluoroscopy time: 1 .2 minutes Cumulative dose: 11.7 mGy DISCUSSION: Fluoroscopic examination was performed in conjunction with speech pathology during swallowing a variety of thin and thick liquid consistencies. Provided images demonstrate no laryn geal penetration or aspiration. CONCLUSION: Modified barium swallow dem onstrating no laryngeal penetration or aspiration. Please refer to the speech pathology report for further details. Signed by: Isabel Fish MD on 9 8:40 AM Dictated By: ISABEL FISH MD 9 Transcribed By: PHAM on 07/22/19839 COPY TO: OSCAR STUART PIPING DRAFTER Platelet Ehogisjg2133-32-81 11:57:00* Test Item Value Reference Range Interpretation Comments Platelet Estimate (test code = 12414-1) MODERATELY DECREASED [facility] Medical CenterPlatelet Morphology Ndbqjol7378-28-80 11:57:00* Test Item Value Reference Range Interpretation Comments Platelet Morphology Comment (test code = 51715-6) FEW LARGE [facility] CenterPlatelet Fdpmadtr7800-51-15 11:57:00* Test Item Value Reference Range Interpretation Comments Platelet Estimate (test code = 23682-1) MODERATELY DECREASED [facility] CenterPlatelet Morphology Kxawskq7618-25-06 11:57:00* Test Item Value Reference Range Interpretation Comments Platelet Morphology Comment (test code = 53232-1) FEW LARGE [facility] Medical CenterPlatelet Nsiwrttd1519-02-12 11:57:00* Test Item Value Reference Range Interpretation Comments Platelet Estimate (test code = 82373-3) MODERATELY DECREASED [facility] CenterPlatelet Morphology Ubgcpux9556-51-61 11:57:00* Test Item Value Reference Range Interpretation Comments Platelet Morphology Comment (test code = 15838-2) FEW LARGE [facility] CenterTriglycerides Sfxmt4822-75-47 06:00:00* Test Item Value Reference Range Interpretation Comments Triglycerides Level (test code = 2571-8) 73 0-149 [facility] CenterCholesterol Flatw4646-93-21 06:00:00* Test Item Value Reference Range Interpretation Comments Cholesterol Level (test code = 2093-3) 135 0-199 Less than 200 mg/dL Low Gqzx375 - 239 mg/dL Borderline Tvgv573 m g/dl and greater High Risk [facility] CenterLDL Ivrthfhdifm6544-48-73 06:00:00* Test Item Value Reference Range Interpretation Comments LDL Cholesterol (test code = 2089-1) 85 60-130 [facility] CenterHDL Zkotfiocefr6180-52-51 06:00:00* Test Item Value Reference Range Interpretation Comments HDL Cholesterol (test code = 2085-9) 35 40-[address] [facility] CenterCholesterol/HDL Luulu9220-12-26 06:00:00 * Test Item Value Reference Range Interpretation Comments Cholesterol/HDL Ratio (test code = 9830-1) 3.9 3.0-3.[address] [facility] CenterTriglycerides Mwkwb0151-08-25 06:00:00* Test Item Value Reference Range Interpretation Comments Triglycerides Level (test code = 2571-8) 73 0-149 [facility] CenterCholesterol Xkarh0321-98-10 06:00:00* Test Item Value Reference Range Interpretation Comments Cholesterol Level (test code = 2093-3) 135 0-199 Less than 200 mg/dL Low Lhxi397 - 239 mg/dL Borderline Ilix494 m g/dl and greater High Risk [facility] CenterLDL Yxtehmwxxrk9221-32-71 06:00:00* Test Item Value Reference Range Interpretation Comments LDL Cholesterol (test code = 2089-1) 85 60-130 [facility] CenterHDL Hpbcnfvpomf3913-09-57 06:00:00* Test Item Value Reference Range Interpretation Comments HDL Cholesterol (test code = 2085-9) 35 40-[address] [facility] CenterCholesterol/HDL Qcyot4654-89-94 06:00:00 * Test Item Value Reference Range Interpretation Comments Cholesterol/HDL Ratio (test code = 9830-1) 3.9 3.0-3.[address] [facility] CenterTriglycerides Fhozi3338-58-82 06:00:00* Test Item Value Reference Range Interpretation Comments Triglycerides Level (test code = 2571-8) 73 0-149 [facility] CenterCholesterol Yzfyk2430-47-88 06:00:00* Test Item Value Reference Range Interpretation Comments Cholesterol Level (test code = 2093-3) 135 0-199 Less than 200 mg/dL Low Pkle641 - 239 mg/dL Borderline Skrr045 m g/dl and greater High Risk [facility] CenterLDL Qwrmsoguazd6007-55-15 06:00:00* Test Item Value Reference Range Interpretation Comments LDL Cholesterol (test code = 2089-1) 85 60-130 [facility] Tlnaorfdege2688-84-72 06:00:00* Test Item Value Reference Range Interpretation Comments HDL Cholesterol (test code = 2085-9) 35 40-[address] [facility] CenterCholesterol/HDL Kcqbj8902-55-19 06:00:00 * Test Item Value Reference Range Interpretation Comments Cholesterol/HDL Ratio (test code = 9830-1) 3.9 3.0-3.[address] [facility] CenterB-Type Natriuretic Hugxfpn9332-09-68 04:27:00* Test Item Value Reference Range Interpretation Comments B-Type Natriuretic Peptide (test code = 14774-8) 180.5 0-[address] [facility] CenterHemoglobin A1c Loejauu3577-79-01 04:14:00 * Test Item Value Reference Range Interpretation Comments Hemoglobin A1c Percent (test code = Hemoglobin A1c Percent) 5.7 4.0-7.0 [facility] CenterHemoglobin A1c Lbffvlr0877-90-16 04:14:00 * Test Item Value Reference Range Interpretation Comments Hemoglobin A1c Percent (test code = Hemoglobin A1c Percent) 5.7 4.0-7.0 [facility] CenterHemoglobin A1c Zdcpmnt8118-62-60 04:14:00 * Test Item Value Reference Range Interpretation Comments Hemoglobin A1c Percent (test code = Hemoglobin A1c Percent) 5.7 4.0-7.0 [facility] CenterCT CHEST [id number] 18:49:00 [place] [address] Patient Name: COMPA CASAS MR #: [id number] : 1950 Age/Sex: 69/F Req #: [id number] Adm Physician: ARACELY WHITE MD Ordered by: BONIFACIO BECERRA MD Report #: [id number] Location: [place] [address] Room/Bed: [facility] Procedure: [id number] CT/CT CHEST WO Exam Date: 07/20/19 Exam Time: 1815 REPORT STATUS: Signed EXAM: CT C hest WITHOUT contrast 07/20/2019 4:47 PM INDICATION: Pneumonia. Sepsis. COMP ARISON: None TECHNIQUE: Chest was scanned utilizing a multidetector helical scanner from the lung apex through the level of the adrenal glands without adm inistration of IV contrast. Absence of intravenous contrast decreases sensitiv ity for detection of lymphadenopathy and vascular pathology. Coronal and sagit julio cesar reformations were obtained. Routine protocol was performed. I V CONTRAST: None RADIATION DOSE: Total DLP: 616.53 mGy*cm Estimated effective dose: (DLP x 0.014 x size factor) mSv COMP LICATIONS: None FINDINGS: LINES/ TUBES: None. LUNGS AND AIRWAYS: There is multifocal coarsening of the pulmonary interstitium associated with p atchy groundglass density and traction bronchiectasis suggesting interstitial lung disease, possibly NSIP; Superimposed infection cannot be excluded. P LEURA: No pleural effusion or pneumothorax. HEART AND MEDIASTINUM: The thyr oid gland is normal. No mediastinal, hilar or axillary lymphadenopathy. The heart is normal in size.. There is no pericardial effusion. The pulmonary elina nk is dilated measuring 3.9 cm in diameter. Mild considerations of the aortic and mitral valves. UPPER ABDOMEN: Limited non-contrast views of the upper a bdomen show lamellated gallstones. The adrenal glands are normal. Remote fra ctures of lower left-sided ribs. BONES: There are degenerative changes in the thoracic spine. SOFT TISSUES: Unremarkable. IMPRESSION: 1. Multifoc al coarsening of the pulmonary interstitium associated with patchy groundglass density and traction bronchiectasis suggesting interstitial lung disease such fibrotic NSIP (although concurrent UIP is possible). Superimposed infection c annot be excluded in the proper setting. 2. Cholelithiasis. Signed by: Dr. Paul Jacksno M.D. on 07/20/2019 7:02 PM Dictated By: JOANN JACKSON MD, MD 01 Transcribed By: PHAM on 07/20/191901 COPY TO: BONIFACIO BECERRA MD Creatine Kinase [id number] 15:20:00* Test Item Value Reference Range Interpretation Comments Creatine Kinase MB (test code = 55549-0) 6.30 0-5.0 H [facility] [id number] 15:20:00* Test Item Value Reference Range Interpretation Comments Troponin I (test code = OKA2667) 0.004 0-0.300 [facility] CenterCreatine Sifjwt4556-88-68 15:13:00* Test Item Value Reference Range Interpretation Comments Creatine Kinase (test code = 2157-6) 455 29-[address] [facility] CenterCHEST 2 [id number] 00:01:00 [facility] [address] [place] [address] Patient Name: COMPA CASAS MR #: [id number] : 1950 Age/Sex: 69/F Req #: [id number] Adm Physician: Ordered by: KANNAN LLANOS MD Report #: [id number] Location: ER Room/Bed: Procedure: [id number] DX/CHEST 2 VIEWS Exam Date: 07/19/19 Exam Time: 2248 REPORT STATUS: Signed EXAMINATI ON: CHEST 2 VIEWS INDICATION: COUGH, CONGESTION [id number] COMPARISON: Chest radiograph 01/02/2018 FINDINGS: PA and lateral views TUBES and LINES: None. LUNGS: Adequate lung volumes. I ncreased bilateral perihilar peribronchial lung markings and hazy airspace opa cities. PLEURA: No pleural effusion or pneumothorax. HEART AND MEDIAS TINUM: The cardiomediastinal silhouette is borderline enlarged. BONE S AND SOFT TISSUES: No acute osseous lesion. Soft tissues are unremarkable. UPPER ABDOMEN: No free air under the diaphragm. IMPRESSION: Findings suggestive of central airway disease such as bronchitis possibly with bronchopneumonia. Aspiration or pulmonary edema are also considerations. Signed by: Abner Mandel DO on 07/20/2019 12:04 AM Dictated By: ABNER MANDEL DO 0004 T ranscribed By: PHAM on 07/20/19 0004 COPY TO: KANNAN LLANOS MD Urine [id number] 23:55:00* Test Item Value Reference Range Interpretation Comments Urine WBC (test code = 5821-4) 0-5 0-5 [facility] CenterU[facility] [id number] 23:55:00* Test Item Value Reference Range Interpretation Comments Urine RBC (test code = 88799-1) 0-5 0-5 [facility] CenterU[facility] Lkfleqdp2472-66-39 23:55:00* Test Item Value Reference Range Interpretation Comments Urine Bacteria (test code = 13803-4) RARE NONE [facility] CenterUrine Epithelial Otful7523-93-07 23:55:00 * Test Item Value Reference Range Interpretation Comments Urine Epithelial Cells (test code = 14686-5) RARE NONE [facility] CenterU[facility] [id number] 23:55:00* Test Item Value Reference Range Interpretation Comments Urine WBC (test code = 5821-4) 0-5 0-5 [facility] CenterU[facility] TGY1970-72-10 23:55:00* Test Item Value Reference Range Interpretation Comments Urine RBC (test code = 02306-0) 0-5 0-5 [facility] CenterU[facility] Ijqokafl3899-81-32 23:55:00* Test Item Value Reference Range Interpretation Comments Urine Bacteria (test code = 90177-0) RARE NONE [facility] CenterUrine Epithelial Bqkeo8743-33-84 23:55:00 * Test Item Value Reference Range Interpretation Comments Urine Epithelial Cells (test code = 59166-7) RARE NONE [facility] CenterU[facility] WNP3302-27-83 23:55:00* Test Item Value Reference Range Interpretation Comments Urine WBC (test code = 5821-4) 0-5 0-5 [facility] CenterU[facility] EUX6128-04-03 23:55:00* Test Item Value Reference Range Interpretation Comments Urine RBC (test code = 77144-8) 0-5 0-5 [facility] Center[facility] Mbbxdogi5073-96-20 23:55:00* Test Item Value Reference Range Interpretation Comments Urine Bacteria (test code = 11067-7) RARE NONE [facility] CenterU[facility] Epithelial Aetxs1572-17-78 23:55:00 * Test Item Value Reference Range Interpretation Comments Urine Epithelial Cells (test code = 35684-2) RARE NONE [facility] CenterU[facility] Qvobe5514-78-21 23:47:00* Test Item Value Reference Range Interpretation Comments Urine Color (test code = 5778-6) YELLOW YELLOW [facility] CenterU[facility] Xynauqw7124-56-81 23:47:00* Test Item Value Reference Range Interpretation Comments Urine Clarity (test code = 48240-8) CLEAR CLEAR [facility] Specific Ifujyvc2765-53-59 23:47:00 * Test Item Value Reference Range Interpretation Comments Urine Specific [place] (test code = 5811-5) 1.020 1.010-1.[address] [facility] CenterU[facility] [id number] 23:47:00* Test Item Value Reference Range Interpretation Comments Urine pH (test code = 66391-7) 6 5-7 [facility] Center[facility] Leukocyte Tikvujdu0667-21-75 23:47:00* Test Item Value Reference Range Interpretation Comments Urine Leukocyte Esterase (test code = 82452-3) NEGATIVE NEGATIV E [facility] CenterU[facility] Xpsdzcu8710-47-14 23:47:00* Test Item Value Reference Range Interpretation Comments Urine Nitrite (test code = 28399-0) NEGATIVE NEGATIVE [facility] CenterU[facility] Gzcovvr5909-28-76 23:47:00* Test Item Value Reference Range Interpretation Comments Urine Protein (test code = 56439-8) NEGATIVE NEGATIVE [facility] CenterU[facility] Glucose (UA)2019-07-19 23:47:00* Test Item Value Reference Range Interpretation Comments Urine Glucose (UA) (test code = 45999-4) NEGATIVE NEGATIVE [facility] CenterU[facility] Kusfviv7125-47-63 23:47:00* Test Item Value Reference Range Interpretation Comments Urine Ketones (test code = 45950-3) NEGATIVE NEGATIVE [facility] Ylegpzcziltv8516-19-07 23:47:00* Test Item Value Reference Range Interpretation Comments Urine Urobilinogen (test code = 41374-6) 1 0.2-1 [facility] CenterU[facility] Xjskjeoyu4977-70-75 23:47:00* Test Item Value Reference Range Interpretation Comments Urine Bilirubin (test code = 1977-8) NEGATIVE NEGATIVE [facility] Center[facility] Gpltk5136-88-10 23:47:00* Test Item Value Reference Range Interpretation Comments Urine Blood (test code = 34864-8) NEGATIVE NEGATIVE [facility] CenterU[facility] Tlazv1271-93-73 23:47:00* Test Item Value Reference Range Interpretation Comments Urine Color (test code = 5778-6) YELLOW YELLOW [facility] CenterU[facility] Mykphdr5522-59-98 23:47:00* Test Item Value Reference Range Interpretation Comments Urine Clarity (test code = 30443-6) CLEAR CLEAR [facility] Specific Rxjujeo8530-98-13 23:47:00 * Test Item Value Reference Range Interpretation Comments Urine Specific [place] (test code = 5811-5) 1.020 1.010-1.[address] [facility] CenterU[facility] [id number] 23:47:00* Test Item Value Reference Range Interpretation Comments Urine pH (test code = 87850-7) 6 5-7 [facility] CenterU[facility] Leukocyte Rbtrviqf7758-90-49 23:47:00* Test Item Value Reference Range Interpretation Comments Urine Leukocyte Esterase (test code = 37845-0) NEGATIVE NEGATIV E [facility] CenterU[facility] Jvntbbf0076-65-28 23:47:00* Test Item Value Reference Range Interpretation Comments Urine Nitrite (test code = 41613-2) NEGATIVE NEGATIVE [facility] CenterU[facility] Pvuurfx7406-44-68 23:47:00* Test Item Value Reference Range Interpretation Comments Urine Protein (test code = 30520-0) NEGATIVE NEGATIVE [facility] CenterU[facility] Glucose (UA)2019-07-19 23:47:00* Test Item Value Reference Range Interpretation Comments Urine Glucose (UA) (test code = 67383-5) NEGATIVE NEGATIVE [facility] CenterU[facility] Cctdbwv3335-57-66 23:47:00* Test Item Value Reference Range Interpretation Comments Urine Ketones (test code = 84992-2) NEGATIVE NEGATIVE [facility] Center[facility] Jkhgwihfzcbz3194-67-79 23:47:00* Test Item Value Reference Range Interpretation Comments Urine Urobilinogen (test code = 28896-9) 1 0.2-1 [facility] Hmcsrgsno9221-69-42 23:47:00* Test Item Value Reference Range Interpretation Comments Urine Bilirubin (test code = 1977-8) NEGATIVE NEGATIVE [facility] CenterU[facility] Qmdrk8601-74-39 23:47:00* Test Item Value Reference Range Interpretation Comments Urine Blood (test code = 16132-3) NEGATIVE NEGATIVE [facility] CenterU[facility] Vnxmq4250-34-48 23:47:00* Test Item Value Reference Range Interpretation Comments Urine Color (test code = 5778-6) YELLOW YELLOW [facility] CenterU[facility] Nyrvhdp2008-24-97 23:47:00* Test Item Value Reference Range Interpretation Comments Urine Clarity (test code = 88015-9) CLEAR CLEAR [facility] CenterU[facility] Specific Iytvfik5127-77-32 23:47:00 * Test Item Value Reference Range Interpretation Comments Urine Specific [place] (test code = 5811-5) 1.020 1.010-1.[address] [facility] CenterU[facility] [id number] 23:47:00* Test Item Value Reference Range Interpretation Comments Urine pH (test code = 33660-9) 6 5-7 [facility] CenterU[facility] Leukocyte Rtvnmdxl6055-45-11 23:47:00* Test Item Value Reference Range Interpretation Comments Urine Leukocyte Esterase (test code = 20049-8) NEGATIVE NEGATIV E [facility] CenterU[facility] Rcdwqun0777-54-99 23:47:00* Test Item Value Reference Range Interpretation Comments Urine Nitrite (test code = 78010-4) NEGATIVE NEGATIVE [facility] CenterU[facility] Nbngrfm6868-79-81 23:47:00* Test Item Value Reference Range Interpretation Comments Urine Protein (test code = 48243-4) NEGATIVE NEGATIVE [facility] CenterU[facility] Glucose (UA)2019-07-19 23:47:00* Test Item Value Reference Range Interpretation Comments Urine Glucose (UA) (test code = 77340-7) NEGATIVE NEGATIVE [facility] CenterU[facility] Fxkecii9634-77-89 23:47:00* Test Item Value Reference Range Interpretation Comments Urine Ketones (test code = 83681-2) NEGATIVE NEGATIVE [facility] CenterU[facility] Drzfzumvwjtl9502-56-21 23:47:00* Test Item Value Reference Range Interpretation Comments Urine Urobilinogen (test code = 58395-0) 1 0.2-1 [facility] CenterU[facility] Suuokeqsq5264-02-32 23:47:00* Test Item Value Reference Range Interpretation Comments Urine Bilirubin (test code = 1977-8) NEGATIVE NEGATIVE [facility] CenterU[facility] Oyqbx2287-54-68 23:47:00* Test Item Value Reference Range Interpretation Comments Urine Blood (test code = 93271-6) NEGATIVE NEGATIVE [facility] CenterInfluenza Virus Types A,B Antigen 2019-07-19 23:46:00* Test Item Value Reference Range Interpretation Comments Influenza Virus Types A,B Antigen (test code = 25296-1) NEGATIVE NEGATIVE [facility] CenterInfluenza Virus Types A,B Antigen 2019-07-19 23:46:00* Test Item Value Reference Range Interpretation Comments Influenza Virus Types A,B Antigen (test code = 53041-0) NEGATIVE NEGATIVE [facility] CenterLactic Acid Brhin4298-80-02 23:15:00* Test Item Value Reference Range Interpretation Comments Lactic Acid Level (test code = Lactic Acid Level) 6.8 4.5- 19.8 [facility] CenterTotal Tspnhxgrn1453-67-50 23:15:00* Test Item Value Reference Range Interpretation Comments Total Bilirubin (test code = 1975-2) 0.6 0.2-1.2 [facility] CenterAspartate Amino Transf (AST/SGOT) 2019-07-19 23:15:00* Test Item Value Reference Range Interpretation Comments Aspartate Amino Transf (AST/SGOT) (test code = Aspartate Amino Transf (AST/SGOT)) 22 5-34 [facility] CenterAlanine Aminotransferase (ALT/SGPT) 2019-07-19 23:15:00* Test Item Value Reference Range Interpretation Comments Alanine Aminotransferase (ALT/SGPT) (test code = 1742-6) 9 0-55 [facility] CenterTotal Mhpycym0259-81-39 23:15:00* Test Item Value Reference Range Interpretation Comments Total Protein (test code = 2885-2) 7.2 6.5-8.1 [facility] CenterAlbumin2019-10-01 23:15:00* Test Item Value Reference Range Interpretation Comments Albumin (test code = 1751-7) 3.0 3.5-5.[address] [facility] CenterGlobulin2019-10-01 23:15:00* Test Item Value Reference Range Interpretation Comments Globulin (test code = 00241-2) 4.2 2.3-3.[address] [facility] CenterAlbumin/Globulin Qodrb2535-73-27 23:15:00 * Test Item Value Reference Range Interpretation Comments Albumin/Globulin Ratio (test code = 1759-0) 0.7 0.8-2.[address] [facility] CenterAlkaline Rdqaehyouwk6989-33-56 23:15:00* Test Item Value Reference Range Interpretation Comments Alkaline Phosphatase (test code = 6768-6) 97 40-150 [facility] CenterLactic Acid Cioxq8370-23-95 23:15:00* Test Item Value Reference Range Interpretation Comments Lactic Acid Level (test code = Lactic Acid Level) 6.8 4.5- 19.8 [facility] CenterLactic Acid Wjbph2834-56-49 23:15:00* Test Item Value Reference Range Interpretation Comments Lactic Acid Level (test code = Lactic Acid Level) 6.8 4.5- 19.8 [facility]URG[facility] RLWPREXGB1859-15-25 07:03:00 RUN DATE: 07/13/19 [place] [facility] *LIVE* PAGE 1 RUN TIME: 702 Specimen Inqui ry RUN USER: INTERFACE PATIENT: COMPA CASAS ACCT #: [id number] LOC: Stuart4SMSO U #: [id number] AGE/SX: 68/F ROOM: [facility]: Alee Lao MD : 46 BED: 1 DIS: 07/08/19 STATUS: DIS IN TLOC: SPEC #: [id number] RECD: 07/08/19 STATUS: JOHNATHAN REQ #: [id number] FLACO: 07/08/19 [facility] DR: Alee Lao MD ENTERED: 07/12/19 SP TYPE: SURG SPEC OTHR DR: Ela Myers MD, Terri B MD Tran, James Le Thanh MDORDERED: GM LEVEL 4 CODES: [id number] - UTERUS, NOS WH6605 - PELVIS, NOS COPIES TO: [place] [address] [place] [address] Alee Lao MD [address] [facility]. [place] [phone] Teresa Olson MD [address] [place] [address] Dwain Anderson MD [address] [facility] [address] [place] [address] PROCEDURES: GM LE SUSAN 4 (Incomplete) TISSUES: 1. UTERUS, NOS - Uterus, cervix, bilateral tubes and, ova 2. PELVIS, NOS - Pelvic, washing FINAL DIAGNO SIS Uterus, cervix, bilateral tubes and, ovaries, exc.: Infiltrating mode rately differentiated adenocarcinoma, FIGO Grade II, 3.5 cm, with lymphovasc ular invasion, and invasion into myometrium (1.2 cm out of 1.5 cm myometrial thickness; serosal surface free of tumor; right adnexa, fibrous adhesions and serous cyst; left adnexa, serous cystadenofibroma and fibrous adhesions. Pelvic, washing: Negative for malignancy. C ONTINUED ON NEXT PAGE RUN DATE: 07/13/19 [facility] [place] [facility] *LIVE* PAGE 2 RUN TIME: 702 Specimen Inquiry RUN USER: INTERFACE SPEC #: [id number] PATIENT: COMPA CASAS #[id number] (Continued) - GROSS AND MICROSCOPIC FROZEN SECTION DIAGNOSIS (MR): ENDOMETRIUM: End ometrial adenocarcinoma, FIGO GRADE I-II, 70% invasion into myometrium. GROSS EXAMINATION: Received in the fresh state and la beled uterus is a uterus together with its attached cervix and bilateral fallopian tubes and ovaries. The specimen measures 6.5 x 4.5 x 11.5 cm. The uterus is opened anteriorly and the endometrium is thick and irregular with a fleshy tumor measuring 3.5 cm. The endometrium has an average thickness of 1.5 cm. The myometrium has an average thickness of 1.5 cm. Sections are sub mitted for frozen section (A-B). The right ovary measures 3.2 cm and the rig ht tube measures 6 x 0.5 cm. The ovary measures 3.5 cm with an at tached cyst measuring 4.5 cm in largest dimension and with an attached fallo pian tube measuring 5 x 0.7 cm. Additional sections are submitted as (C)-rig ht adnexa; (D)-(G)-left adnexa; (F)-(M)-cervix and uterus. Also receivd are 35 cc of red pelvic washing for cytologic evaluation. M ICROSCOPIC EXAMINATION: The ectocervical mucosa has normal maturation. The endocervical mucosa has nabothian cysts, areas of squamous metaplasia and a ssociated chronic inflammation. The endom etrial tumor reveals moderately differentiated adenocarcinoma with lymphovascu lar invasion and areas of necrosis. The tumor invades 1.2 cm of 1.5 cm myomet rial thickness. The serosal surface appears free of tumor. The serosa shows fi brous adhesions. The right adnexa sh ows fibrous adhesions and serous cyst. The left adnexa shows serous cystaden ofibroma and fibrous adhesions. The cytology preparations (cytospins and cell block section) reveal proteinaceous fluid, a few inflammatory cells, and reactive mesothelial cells. POST-OP DIAGNOSIS Uteri ne cancer PRE-OP DIAGNOSIS Uterine cancer REVIEWED BY: D R CONTINUED ON NEXT PAGE RUN DATE: 07/13/19 [place] [facility] *LIVE* PAGE 3 RUN TIME: 702 Specimen Inquiry RUN USER: INTERFACE SPEC #: [id number] PATIENT: COMPA CASAS #[id number] (Continued) Signed SIGNATURE ON FILE Meaghan Brooks MD 07/13/19 0703 END OF REPORT SURGICAL [id number] 07:03:00 RUN DATE: 07/14/19 [place] [facility] *LIVE* PAGE 1 RUN TIME: 820 Specimen Inqui ry RUN USER: INTERFACE PATIENT: COMPA CASAS ACCT #: G [id number] LOC: Stuart4SMSRex U #: [id number] AGE/SX: 68/F ROOM: [facility] RE07/08/19[place] DR: Alee Lao MD : 46 BED: 1 DIS: 07/08/19 STATUS: DIS IN TLOC: SPEC #: [id number] RECD: 07/08/19 STATUS: JOHNATHAN REPapito #: [id number] FLACO: 07/08/[address]: Alee Lao MD ENTERED: 07/12/19-956 SP TYPE: SURG SPEC OTHR DR: Ela Myers MD, Terri B MD Tran, James Le Thanh MDORDERED: GM LEVEL 4 CODES: [id number] - UTERUS, NOS [id number] - PELVIS, NOS [place]IES TO: [place] [address] [place], [place] [id number] Alee Lao MD [address] [place] [address] Teresa Olson MD [address] [place] [address] Dwain Anderson MD [address] [facility], [address] [place] [address] PROCEDURES: LE SUSAN 4 (Incomplete) TISSUES: 1. UTERUS, NOS - Uterus, cervix, bilateral tubes and, ova 2. PELVIS, NOS - Pelvic, washing ADDENDUM FIND INGS Addendum #1 Entered: 07/13/19-1624 *Specimen: Uterine corpu s, cervix, bilateral adnexa. *Procedure: Radical hystere ctomy *Lymph Node Sampling: No. *Specimen Integrity: Intact hyste rectomy specimen *Tumor Size: 3.5 cm. CONTIN UED ON NEXT PAGE RUN DATE: 07/14/19 [facility] *LIVE* PAGE 2 RUN TIME: 820 Specimen Inquiry RUN USER: INTERFACE SPEC #: [id number] KYLAH RYDER: COMPA CASAS ANTONIA #[id number] (Continued) ADDENDUM FINDINGS (Continued) *Histologic Type: Endometrioid bridget ocarcinoma, not otherwise characterized. *Histologic Grade: FIGO grade 2 *Myometrial Invasion: Depth of invasion: 1.2 cm. Myometrial thickness: 1.5 cm. *Involvement of Cervix: Not involved *Extent of Involvement of Other Organs: NA. Pelvic Washing: Free of tumor. Margins: Free of tumor. *Lymph-Vascular Invasion: Identified. Lymph Nodes: NA. *TNM: T1b NX MX *MSI Testing to be reported in an addendum (En dometrial Adenocarcinoma cases) Tumor block(s): (J)-(M). Addendum Signed SIGNATURE ON FILE Meaghan Brooks MD 07/14/19 0821 ------ ------ FINAL DIAGNOSIS Uterus, cervix, bilateral tubes and, ovaries, exc.: Infiltrating moderately differentiated adenocarcinoma, FIGO Grade II, 3.5 cm, with lymphovascular invasion, and invasion into myometrium (1.2 cm o ut of 1.5 cm myometrial thickness; serosal surface free of tumor; right adnex a, fibrous adhesions and serous cyst; left adnexa, serous cystadenofibroma and fibrous adhesions. Pelvic, washing: Negative for malignancy. SALVADOR SS AND MICROSCOPIC FROZEN SECTION DIAGNOSIS (MR): ENDOMETRIUM: Endometrial ad enocarcinoma, FIGO GRADE I-II, 70% invasion into myometrium. GROSS EXAMINATION: Received in the fresh state and labeled uterus is a uterus together with its attached cervix and bilateral fallopian t ubes and ovaries. The specimen measures 6.5 x 4.5 x 11.5 cm. The uterus is opened anteriorly and the endometrium is thick and irregular with a fleshy tu mor measuring 3.5 cm. The endometrium has an average thickness of 1.5 cm. The myometrium has an average thickness of 1.5 cm. Sections are submitted for frozen section (A-B). The right ovary measures 3.2 cm and the right tube measures 6 x 0.5 cm. The ovary measures 3.5 cm with an attached cyst measuring 4.5 cm in largest dimension and with an attached fallopian CONTINUED ON NEXT PAGE RUN DATE: [facility] *LIVE* PAGE 3 RUN TIME: 820 Specimen Inquiry RU N USER: INTERFACE ---- --------SPEC #: [id number] PATIENT: COMPA CASAS #[id number] (Continued) GROSS AND MICROSCOPIC (Continued) tube measuring 5 x 0.7 cm. Additional sections are submitted as (C)-right adnexa; (D)-(G)-left adnexa; (F)-(M)-cervix and uterus. Also receivd are 35 cc of red pelvic washing for cytologic evaluation. MICROSCO PIC EXAMINATION: The ectocervical mucosa has normal maturation. The endoce rvical mucosa has nabothian cysts, areas of squamous metaplasia and associat ed chronic inflammation. The endometrial tumor reveals moderately differentiated adenocarcinoma with lymphovascular inv asion and areas of necrosis. The tumor invades 1.2 cm of 1.5 cm myometrial th ickness. The serosal surface appears free of tumor. The serosa shows fibrous a dhesions. The right adnexa shows fib mal adhesions and serous cyst. The left adnexa shows serous cystadenofibrom a and fibrous adhesions. The cytology preparations (cytos pins and cell block section) reveal proteinaceous fluid, a few inflamm atory cells, and reactive mesothelial cells. POST-OP DIAGNOSIS Uterine canc er PRE-OP DIAGNOSIS Uterine cancer REVIEWED BY: ------ ------ Signed SIGNATURE ON FILE Meaghan Brooks MD 07/13/19 0703 END OF R EPORT SURGICAL [id number] 07:03:00 RUN DATE: 07/28/19 [facility] *LIVE* PAGE 1 RUN TIME: 814 Specimen Inqui ry RUN USER: INTERFACE PATIENT: COMPA CASAS ACCT #: [id number] LOC: Stuart4SMSO U #: [id number] AGE/SX: 68/F ROOM: [facility] RE07/08/19[facility] DR: Alee Lao MD : 48 BED: 1 DIS: 07/08/19 STATUS: DIS IN TLOC: SPEC #: [id number] RECD: 07/08/19 STATUS: SOUT REQ #: [id number] FLACO: 07/08/19 [facility] DR: Alee Lao MD ENTERED: 07/12/19 SP TYPE: SURG SPEC OTHR DR: Ela Myers MD,Teresa Anderson,Dwain Recinos MDORDERED: LEVEL 4 CODES: [id number] - UTERUS, NOS [id number] - PELVIS, NOS [place]: [place] [address] [place] [address] Alee Lao MD [address] [id number] Teresa Olson MD [address] [id number] Dwain Anderson MD 33 33 [facility], [address] [place] [address] PROCEDURES: DAVID ROMERO SUSAN 4 (Incomplete) TISSUES: 1. UTERUS, NOS - Uterus, cervix, bilateral tubes and, ova 2. PELVIS, NOS - Pelvic, washing ADDENDUM FIND INGS Addendum #2 Entered: 07/27/19 MLH1 and PMS2 are not de tected by immunohistochemistry. MSH2 and MSH6 are expressed. Absence of staining for MLH1 and PMS2 indicates deficiency CONTIN UED ON NEXT PAGE RUN DATE: 07/28/19 [facility] *LIVE* PAGE 2 RUN TIME: 0815 Specimen Inquiry RUN USER: INTERFACE SPEC #: [id number] KYLAH RYDER: COMPA CASAS #[id number] (Continued) ADDENDUM FINDINGS (Continued) in these mismatch repair proteins. 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 Please see attached outside reports for complete details. Addendum Signed SIGNATURE ON FILE Meaghan Brooks MD 07/28/19 0815 Addendum #1 Entered: -[id number] *Specimen: Uterine corpus, cervix, bilateral adnexa. *Procedure: Radical hysterectomy *Lymph Node Sampling: No. *Specimen Integrity: Intact hysterectomy specimen *T umor Size: 3.5 cm. *Hist ologic Type: Endometrioid adenocarcinoma, not otherwise characte rized. *Histologic Grade: FIGO grade 2 *Myometrial Invas ion: Depth of invasion: 1.2 cm. Myometrial thickness: 1.5 cm. *Involvement of Cervix: Not involved *Extent of Involvement of Other Organs: NA. Pelvic Washing: Free of tumor. Margins: Free of tumor. *Lymph-Vascular Invasion: Identified. Lymph Nodes: NA. *TNM: T1b NX MX *MSI Testing to be reported in an addendum (Endometrial Adenocarcinoma cases) Tumor block(s): (J)-(M). Addendum Signed SIGNATURE ON FILE Meaghan Brooks MD 07/14/19 0821 CONT INUED ON NEXT PAGE RUN DATE: 07/28/19 [facility] *LIVE* PAGE 3 RUN TIME: 814 Specimen Inquiry RUN USER: INTERFACE SPEC #: [id number] PATIENT: COMPA CASAS #[id number] (Continued) FINAL DIAGNOSIS Uterus, cervix, bilateral tubes and, ovaries, exc.: Infiltrating moderately differentiated adenocarcinoma, FIGO Grade II, 3.5 cm , with lymphovascular invasion, and invasion into myometrium (1.2 cm out of 1 .5 cm myometrial thickness; serosal surface free of tumor; right adnexa, f ibrous adhesions and serous cyst; left adnexa, serous cystadenofibroma and fi brous adhesions. Pelvic, washing: Negative for malignancy. GROSS AND MICROSCOPIC FROZEN SECTION DIAGNOSIS (MR): ENDOMETRIUM: Endometrial adenocarc inoma, FIGO GRADE I-II, 70% invasion into myometrium. GROSS EXAMINATION: Received in the fresh state and labeled uterus is a uterus together with its attached cervix and bilateral fallopian tubes and ovaries. The specimen measures 6.5 x 4.5 x 11.5 cm. The uterus is opened anteriorly and the endometrium is thick and irregular with a fleshy tumor measuring 3.5 cm. The endometrium has an average thickness of 1.5 cm. The m yometrium has an average thickness of 1.5 cm. Sections are submitted for fro vianca section (A-B). The right ovary measures 3.2 cm and the right tube measu res 6 x 0.5 cm. The ovary measures 3.5 cm with an attached cyst me asuring 4.5 cm in largest dimension and with an attached fallopian tube lv uring 5 x 0.7 cm. Additional sections are submitted as (C)-right adnexa; (D) -(G)-left adnexa; (F)-(M)-cervix and uterus. Also receivd are 35 cc of red pelvic washing for cytologic evaluation. MICROSCOPIC EXAMINA TION: The ectocervical mucosa has normal maturation. The endocervical muco sa has nabothian cysts, areas of squamous metaplasia and associated chronic inflammation. The endometrial tumor revea ls moderately differentiated adenocarcinoma with lymphovascular invasion and a reas of necrosis. The tumor invades 1.2 cm of 1.5 cm myometrial thickness. Th e serosal surface appears free of tumor. The serosa shows fibrous adhesions. The right adnexa shows fibrous adhesi ons and serous cyst. The left adnexa shows serous cystadenofibroma and fibro us adhesions. The cytology preparations (cytospins and ce ll block section) reveal proteinaceous fluid, a few inflammatory cells , and reactive mesothelial cells. CONTINUED ON NEXT PAGE RUN DATE: 07/28/19 [facility] *LIVE* PAGE 4 RUN TIME: 0815 S radhika Inquiry RUN USER: INTERFACE SPEC #: [id number] PATIENT: COMPA CASAS #[id number] (Continued) PO ST-OP DIAGNOSIS Uterine cancer PRE-OP DIAGNOSIS Uterine cancer REVIEWED BY: DR Signed SIGNATURE ON FILE Meaghan Brooks MD 07/13/19 0703 END OF REPORT [id number] 17:21:00* Test Item Value Reference Range Interpretation Comments GLUBED (test code = GLUBED) 123 MG/DL 70-110 H Performed by certified vibrating screed operator at [facility] [id number] 13:28:00* Test Item Value Reference Range Interpretation Comments GLUBED (test code = GLUBED) 193 MG/DL 70-110 H Performed by certified vibrating screed operator at [facility] [id number] 08:03:00* Test Item Value Reference Range Interpretation Comments GLUBED (test code = GLUBED) 92 MG/DL 70-110 N Performed by certified vibrating screed operator at [facility] COMPREHENSIVE METABOLIC [id number] 05:29:00* Test Item Value Reference Range Interpretation Comments SODIUM (test code = NA) 139 mEq/L 134-147 N POTASSIUM (test code = K) 3.8 mEq/L 3.4-5.0 N CHLORIDE (test code = CL) 107 mEq/L 100-108 N CARBON DIOXIDE (test code = CO2) 28 mEq/L 21-33 N ANION GAP (test code = GAP) 8 0-20 N GLUCOSE (test code = GLU) 111 mg/dL 70-110 H BLOOD UREA NITROGEN (test code = BUN) 17 mg/dL 7-18 N GLOMERULAR FILTRATION RATE (test code = GFR) 54.8 70-80 L Units of measure = ml/min/1.73 m2 CREATININE (test code = CREAT) 1.0 mg/dL 0.6-1.3 N TOTAL PROTEIN (test code = PROT) 6.2 g/dL 6.4-8.2 L ALBUMIN (test code = ALB) 2.70 g/dL 3.4-5.0 L CALCIUM (test code = CA) 8.3 mg/dL 8.0-10.5 N BILIRUBIN TOTAL (test code = BILT) 0.5 MG/DL <1.5 N SGOT/AST (test code = AST) 13 IUnit/L 15-37 L SGPT/ALT (test code = ALT) 12 IUnit/L 15-65 L ALKALINE PHOSPHATASE TOTAL (test code = ALKP) 82 IUnit/L 20-125 N CBC W/AUTO [id number] 04:50:00* Test Item Value Reference Range Interpretation Comments WHITE BLOOD CELL (test code = WBC) 8.80 x10 3/uL 4.5-11.0 N RED BLOOD CELL (test code = RBC) 2.95 x10 6/uL 3.54-5.02 L HEMOGLOBIN (test code = HGB) 6.9 g/dL 11.0-15.0 L HEMATOCRIT (test code = HCT) 23.2 % 33.0-45.0 L MEAN CELL VOLUME (test code = MCV) 78.6 fL 81.0-99.0 L MEAN CELL HGB (test code = MCH) 23.4 pg 27.0-33.0 L MEAN CELL HGB CONCETRATION (test code = MCHC) 29.7 g/dL 33.0-37. 0 L RED CELL DISTRIBUTION WIDTH CV (test code = RDW) 14.7 % 11.5- 14.5 H RED CELL DISTRIBUTION WIDTH SD (test code = RDW-SD) 42.2 fL 37 .0-54.0 N PLATELET COUNT (test code = PLT) 189 x10 3/uL 150-400 N MEAN PLATELET VOLUME (test code = MPV) 11.2 fL 7.0-9.0 H NEUTROPHIL % (test code = NT%) 81.8 % 56.0-77.0 H IMMATURE GRANULOCYTE % (test code = IG%) 0.3 % 0.0-2.0 N LYMPHOCYTE % (test code = LY%) 9.2 % 14.0-32.0 L MONOCYTE % (test code = MO%) 8.5 % 4.8-9.0 N EOSINOPHIL % (test code = EO%) 0.1 % 0.3-3.7 L BASOPHIL % (test code = BA%) 0.1 % 0.0-2.0 N NUCLEATED RBC % (test code = NRBC%) 0.0 % 0-0 N NEUTROPHIL # (test code = NT#) 7.19 x10 3/uL 2.0-7.6 N IMMATURE GRANULOCYTE # (test code = IG#) 0.03 x10 3/uL 0.00-0.03 N LYMPHOCYTE # (test code = LY#) 0.81 x10 3/uL 1.0-3.8 L MONOCYTE # (test code = MO#) 0.75 x10 3/uL 0.1-0.8 N EOSINOPHIL # (test code = EO#) 0.01 x10 3/uL 0.0-0.2 N BASOPHIL # (test code = BA#) 0.01 x10 3/uL 0.0-0.2 N NUCLEATED RBC # (test code = NRBC#) 0.00 x10 3/uL 0.0-0.1 N MANUAL DIFF REQUIRED (test code = MDIFF) NO [id number] 20:53:00* Test Item Value Reference Range Interpretation Comments GLUBED (test code = GLUBED) 184 MG/DL 70-110 H Performed by certified vibrating screed operator at [facility] [id number] 14:36:00* Test Item Value Reference Range Interpretation Comments GLUBED (test code = GLUBED) 114 MG/DL 70-110 H Performed by certified vibrating screed operator at [facility] POC ARTERIAL BLOOD [id number] 13:06:00* Test Item Value Reference Range Interpretation Comments POC ARTERIAL BLOOD GAS PH (test code = POCPHA) 7.190 7.35-7. 45 LL POC ARTERIAL BLOOD GAS PCO2 (test code = XDPSVH4M) 59.3 mmHg 35. 0-45 HH POC TCO2 ARTERIAL (test code = POCTCO2) 24.5 POC ARTERIAL BLOOD GAS PO2 (test code = OJFTS1X) 149.1 mmHg 80-10 0.0 H POC HCO3 ARTERIAL (test code = LUWHPS4D) 22.7 MMOL/L 22.0-26.0 N POC BASE EXCESS (test code = POCBEA) -5.4 MMOL/L -4.0-4.0 L POC O2 SATURATION (test code = POCO2S) 98.6 % 90-100 N [id number] 13:06:00* Test Item Value Reference Range Interpretation Comments SODIUM (test code = NA/ABG) MEQ/L 134-147 [id number] 13:06:00* Test Item Value Reference Range Interpretation Comments POTASSIUM (test code = K/ABG) MEQ/L 3.4-5.0 [id number] 13:06:00* Test Item Value Reference Range Interpretation Comments CHLORIDE (test code = CL/ABG) MEQ/L 100-108 CREATININE [id number] 13:06:00* Test Item Value Reference Range Interpretation Comments CREATININE ABG (test code = CREAABG) mg/dL 0.6-1.0 [id number] 13:06:00* Test Item Value Reference Range Interpretation Comments HEMOGLOBIN (test code = HGB/ABG) G/DL 11.0-15.0 [id number] 13:06:00* Test Item Value Reference Range Interpretation Comments HEMATOCRIT (test code = HCT/ABG) % 33.0-45.0 POC IONIZED [id number] 13:06:00* Test Item Value Reference Range Interpretation Comments POC IONIZED CALCIUM (test code = POCCA) MMOL/L 1.12-1.32 POC [id number] 13:06:00* Test Item Value Reference Range Interpretation Comments POC GLUCOSE (test code = POCGLU) MG/DL 70-110 POC ARTERIAL BLOOD [id number] 13:06:00* Test Item Value Reference Range Interpretation Comments POC ARTERIAL BLOOD GAS PH (test code = POCPHA) 7.190 7.35-7. 45 LL POC ARTERIAL BLOOD GAS PCO2 (test code = SWHMXB4J) 59.3 mmHg 35. 0-45 HH POC TCO2 ARTERIAL (test code = POCTCO2) 24.5 POC ARTERIAL BLOOD GAS PO2 (test code = QJCZH6R) 149.1 mmHg 80-10 0.0 H POC HCO3 ARTERIAL (test code = XAHQFA5N) 22.7 MMOL/L 22.0-26.0 N POC BASE EXCESS (test code = POCBEA) -5.4 MMOL/L -4.0-4.0 L POC O2 SATURATION (test code = POCO2S) 98.6 % 90-100 N [id number] 13:06:00* Test Item Value Reference Range Interpretation Comments SODIUM (test code = NA/ABG) 142 MEQ/L 134-147 N [id number] 13:06:00* Test Item Value Reference Range Interpretation Comments POTASSIUM (test code = K/ABG) MEQ/L 3.4-5.0 [id number] 13:06:00* Test Item Value Reference Range Interpretation Comments CHLORIDE (test code = CL/ABG) MEQ/L 100-108 CREATININE [id number] 13:06:00* Test Item Value Reference Range Interpretation Comments CREATININE ABG (test code = CREAABG) mg/dL 0.6-1.0 [id number] 13:06:00* Test Item Value Reference Range Interpretation Comments HEMOGLOBIN (test code = HGB/ABG) G/DL 11.0-15.0 [id number] 13:06:00* Test Item Value Reference Range Interpretation Comments HEMATOCRIT (test code = HCT/ABG) % 33.0-45.0 POC IONIZED [id number] 13:06:00* Test Item Value Reference Range Interpretation Comments POC IONIZED CALCIUM (test code = POCCA) MMOL/L 1.12-1.32 POC [id number] 13:06:00* Test Item Value Reference Range Interpretation Comments POC GLUCOSE (test code = POCGLU) MG/DL 70-110 POC ARTERIAL BLOOD [id number] 13:06:00* Test Item Value Reference Range Interpretation Comments POC ARTERIAL BLOOD GAS PH (test code = POCPHA) 7.190 7.35-7. 45 LL POC ARTERIAL BLOOD GAS PCO2 (test code = KAGGLM6J) 59.3 mmHg 35. 0-45 HH POC TCO2 ARTERIAL (test code = POCTCO2) 24.5 POC ARTERIAL BLOOD GAS PO2 (test code = SAWLL2X) 149.1 mmHg 80-10 0.0 H POC HCO3 ARTERIAL (test code = BKOVMZ5A) 22.7 MMOL/L 22.0-26.0 N POC BASE EXCESS (test code = POCBEA) -5.4 MMOL/L -4.0-4.0 L POC O2 SATURATION (test code = POCO2S) 98.6 % 90-100 N [id number] 13:06:00* Test Item Value Reference Range Interpretation Comments SODIUM (test code = NA/ABG) 142 MEQ/L 134-147 N [id number] 13:06:00* Test Item Value Reference Range Interpretation Comments POTASSIUM (test code = K/ABG) 3.2 MEQ/L 3.4-5.0 L [id number] 13:06:00* Test Item Value Reference Range Interpretation Comments CHLORIDE (test code = CL/ABG) MEQ/L 100-108 CREATININE [id number] 13:06:00* Test Item Value Reference Range Interpretation Comments CREATININE ABG (test code = CREAABG) mg/dL 0.6-1.0 [id number] 13:06:00* Test Item Value Reference Range Interpretation Comments HEMOGLOBIN (test code = HGB/ABG) G/DL 11.0-15.0 [id number] 13:06:00* Test Item Value Reference Range Interpretation Comments HEMATOCRIT (test code = HCT/ABG) % 33.0-45.0 POC IONIZED [id number] 13:06:00* Test Item Value Reference Range Interpretation Comments POC IONIZED CALCIUM (test code = POCCA) MMOL/L 1.12-1.32 POC [id number] 13:06:00* Test Item Value Reference Range Interpretation Comments POC GLUCOSE (test code = POCGLU) MG/DL 70-110 POC ARTERIAL BLOOD [id number] 13:06:00* Test Item Value Reference Range Interpretation Comments POC ARTERIAL BLOOD GAS PH (test code = POCPHA) 7.190 7.35-7. 45 LL POC ARTERIAL BLOOD GAS PCO2 (test code = BWWQSP0I) 59.3 mmHg 35. 0-45 HH POC TCO2 ARTERIAL (test code = POCTCO2) 24.5 POC ARTERIAL BLOOD GAS PO2 (test code = KBHOB5R) 149.1 mmHg 80-10 0.0 H POC HCO3 ARTERIAL (test code = BUSQDO2K) 22.7 MMOL/L 22.0-26.0 N POC BASE EXCESS (test code = POCBEA) -5.4 MMOL/L -4.0-4.0 L POC O2 SATURATION (test code = POCO2S) 98.6 % 90-100 N [id number] 13:06:00* Test Item Value Reference Range Interpretation Comments SODIUM (test code = NA/ABG) 142 MEQ/L 134-147 N [id number] 13:06:00* Test Item Value Reference Range Interpretation Comments POTASSIUM (test code = K/ABG) 3.2 MEQ/L 3.4-5.0 L [id number] 13:06:00* Test Item Value Reference Range Interpretation Comments CHLORIDE (test code = CL/ABG) MEQ/L 100-108 CREATININE [id number] 13:06:00* Test Item Value Reference Range Interpretation Comments CREATININE ABG (test code = CREAABG) mg/dL 0.6-1.0 [id number] 13:06:00* Test Item Value Reference Range Interpretation Comments HEMOGLOBIN (test code = HGB/ABG) G/DL 11.0-15.0 [id number] 13:06:00* Test Item Value Reference Range Interpretation Comments HEMATOCRIT (test code = HCT/ABG) % 33.0-45.0 POC IONIZED [id number] 13:06:00* Test Item Value Reference Range Interpretation Comments POC IONIZED CALCIUM (test code = POCCA) 1.06 MMOL/L 1.12-1.32 L POC [id number] 13:06:00* Test Item Value Reference Range Interpretation Comments POC GLUCOSE (test code = POCGLU) MG/DL 70-110 POC ARTERIAL BLOOD [id number] 13:06:00* Test Item Value Reference Range Interpretation Comments POC ARTERIAL BLOOD GAS PH (test code = POCPHA) 7.190 7.35-7. 45 LL POC ARTERIAL BLOOD GAS PCO2 (test code = CLWFJS6P) 59.3 mmHg 35. 0-45 HH POC TCO2 ARTERIAL (test code = POCTCO2) 24.5 POC ARTERIAL BLOOD GAS PO2 (test code = UQUHK9E) 149.1 mmHg 80-10 0.0 H POC HCO3 ARTERIAL (test code = PWVMMA9E) 22.7 MMOL/L 22.0-26.0 N POC BASE EXCESS (test code = POCBEA) -5.4 MMOL/L -4.0-4.0 L POC O2 SATURATION (test code = POCO2S) 98.6 % 90-100 N [id number] 13:06:00* Test Item Value Reference Range Interpretation Comments SODIUM (test code = NA/ABG) 142 MEQ/L 134-147 N [id number] 13:06:00* Test Item Value Reference Range Interpretation Comments POTASSIUM (test code = K/ABG) 3.2 MEQ/L 3.4-5.0 L [id number] 13:06:00* Test Item Value Reference Range Interpretation Comments CHLORIDE (test code = CL/ABG) MEQ/L 100-108 CREATININE [id number] 13:06:00* Test Item Value Reference Range Interpretation Comments CREATININE ABG (test code = CREAABG) mg/dL 0.6-1.0 [id number] 13:06:00* Test Item Value Reference Range Interpretation Comments HEMOGLOBIN (test code = HGB/ABG) G/DL 11.0-15.0 [id number] 13:06:00* Test Item Value Reference Range Interpretation Comments HEMATOCRIT (test code = HCT/ABG) % 33.0-45.0 POC IONIZED [id number] 13:06:00* Test Item Value Reference Range Interpretation Comments POC IONIZED CALCIUM (test code = POCCA) 1.06 MMOL/L 1.12-1.32 L POC [id number] 13:06:00* Test Item Value Reference Range Interpretation Comments POC GLUCOSE (test code = POCGLU) 103 MG/DL 70-110 N POC ARTERIAL BLOOD [id number] 13:06:00* Test Item Value Reference Range Interpretation Comments POC ARTERIAL BLOOD GAS PH (test code = POCPHA) 7.190 7.35-7. 45 LL POC ARTERIAL BLOOD GAS PCO2 (test code = BETWJY7Q) 59.3 mmHg 35. 0-45 HH POC TCO2 ARTERIAL (test code = POCTCO2) 24.5 POC ARTERIAL BLOOD GAS PO2 (test code = JGNKG2V) 149.1 mmHg 80-10 0.0 H POC HCO3 ARTERIAL (test code = POHHDE8F) 22.7 MMOL/L 22.0-26.0 N POC BASE EXCESS (test code = POCBEA) -5.4 MMOL/L -4.0-4.0 L POC O2 SATURATION (test code = POCO2S) 98.6 % 90-100 N [id number] 13:06:00* Test Item Value Reference Range Interpretation Comments SODIUM (test code = NA/ABG) 142 MEQ/L 134-147 N [id number] 13:06:00* Test Item Value Reference Range Interpretation Comments POTASSIUM (test code = K/ABG) 3.2 MEQ/L 3.4-5.0 L [id number] 13:06:00* Test Item Value Reference Range Interpretation Comments CHLORIDE (test code = CL/ABG) MEQ/L 100-108 CREATININE [id number] 13:06:00* Test Item Value Reference Range Interpretation Comments CREATININE ABG (test code = CREAABG) mg/dL 0.6-1.0 [id number] 13:06:00* Test Item Value Reference Range Interpretation Comments HEMOGLOBIN (test code = HGB/ABG) G/DL 11.0-15.0 [id number] 13:06:00* Test Item Value Reference Range Interpretation Comments HEMATOCRIT (test code = HCT/ABG) 23 % 33.0-45.0 L POC IONIZED [id number] 13:06:00* Test Item Value Reference Range Interpretation Comments POC IONIZED CALCIUM (test code = POCCA) 1.06 MMOL/L 1.12-1.32 L POC [id number] 13:06:00* Test Item Value Reference Range Interpretation Comments POC GLUCOSE (test code = POCGLU) 103 MG/DL 70-110 N POC ARTERIAL BLOOD [id number] 13:06:00* Test Item Value Reference Range Interpretation Comments POC ARTERIAL BLOOD GAS PH (test code = POCPHA) 7.190 7.35-7. 45 LL POC ARTERIAL BLOOD GAS PCO2 (test code = AFEDZK2W) 59.3 mmHg 35. 0-45 HH POC TCO2 ARTERIAL (test code = POCTCO2) 24.5 POC ARTERIAL BLOOD GAS PO2 (test code = QQPVU9N) 149.1 mmHg 80-10 0.0 H POC HCO3 ARTERIAL (test code = UBORFK1Y) 22.7 MMOL/L 22.0-26.0 N POC BASE EXCESS (test code = POCBEA) -5.4 MMOL/L -4.0-4.0 L POC O2 SATURATION (test code = POCO2S) 98.6 % 90-100 N [id number] 13:06:00* Test Item Value Reference Range Interpretation Comments SODIUM (test code = NA/ABG) 142 MEQ/L 134-147 N [id number] 13:06:00* Test Item Value Reference Range Interpretation Comments POTASSIUM (test code = K/ABG) 3.2 MEQ/L 3.4-5.0 L [id number] 13:06:00* Test Item Value Reference Range Interpretation Comments CHLORIDE (test code = CL/ABG) MEQ/L 100-108 CREATININE [id number] 13:06:00* Test Item Value Reference Range Interpretation Comments CREATININE ABG (test code = CREAABG) mg/dL 0.6-1.0 [id number] 13:06:00* Test Item Value Reference Range Interpretation Comments HEMOGLOBIN (test code = HGB/ABG) 7.7 G/DL 11.0-15.0 L [id number] 13:06:00* Test Item Value Reference Range Interpretation Comments HEMATOCRIT (test code = HCT/ABG) 23 % 33.0-45.0 L POC IONIZED [id number] 13:06:00* Test Item Value Reference Range Interpretation Comments POC IONIZED CALCIUM (test code = POCCA) 1.06 MMOL/L 1.12-1.32 L POC [id number] 13:06:00* Test Item Value Reference Range Interpretation Comments POC GLUCOSE (test code = POCGLU) 103 MG/DL 70-110 N POC ARTERIAL BLOOD [id number] 13:06:00* Test Item Value Reference Range Interpretation Comments POC ARTERIAL BLOOD GAS PH (test code = POCPHA) 7.190 7.35-7. 45 LL POC ARTERIAL BLOOD GAS PCO2 (test code = YHZEHC4D) 59.3 mmHg 35. 0-45 HH POC TCO2 ARTERIAL (test code = POCTCO2) 24.5 POC ARTERIAL BLOOD GAS PO2 (test code = ARVYQ6L) 149.1 mmHg 80-10 0.0 H POC HCO3 ARTERIAL (test code = DNZVOP3L) 22.7 MMOL/L 22.0-26.0 N POC BASE EXCESS (test code = POCBEA) -5.4 MMOL/L -4.0-4.0 L POC O2 SATURATION (test code = POCO2S) 98.6 % 90-100 N [id number] 13:06:00* Test Item Value Reference Range Interpretation Comments SODIUM (test code = NA/ABG) 142 MEQ/L 134-147 N [id number] 13:06:00* Test Item Value Reference Range Interpretation Comments POTASSIUM (test code = K/ABG) 3.2 MEQ/L 3.4-5.0 L [id number] 13:06:00* Test Item Value Reference Range Interpretation Comments CHLORIDE (test code = CL/ABG) 112 MEQ/L 100-108 H CREATININE [id number] 13:06:00* Test Item Value Reference Range Interpretation Comments CREATININE ABG (test code = CREAABG) mg/dL 0.6-1.0 [id number] 13:06:00* Test Item Value Reference Range Interpretation Comments HEMOGLOBIN (test code = HGB/ABG) 7.7 G/DL 11.0-15.0 L [id number] 13:06:00* Test Item Value Reference Range Interpretation Comments HEMATOCRIT (test code = HCT/ABG) 23 % 33.0-45.0 L POC IONIZED [id number] 13:06:00* Test Item Value Reference Range Interpretation Comments POC IONIZED CALCIUM (test code = POCCA) 1.06 MMOL/L 1.12-1.32 L POC [id number] 13:06:00* Test Item Value Reference Range Interpretation Comments POC GLUCOSE (test code = POCGLU) 103 MG/DL 70-110 N POC ARTERIAL BLOOD [id number] 13:06:00* Test Item Value Reference Range Interpretation Comments POC ARTERIAL BLOOD GAS PH (test code = POCPHA) 7.190 7.35-7. 45 LL POC ARTERIAL BLOOD GAS PCO2 (test code = RDBIHY0F) 59.3 mmHg 35. 0-45 HH POC TCO2 ARTERIAL (test code = POCTCO2) 24.5 POC ARTERIAL BLOOD GAS PO2 (test code = AXXGT8G) 149.1 mmHg 80-10 0.0 H POC HCO3 ARTERIAL (test code = VAEXFE0Q) 22.7 MMOL/L 22.0-26.0 N POC BASE EXCESS (test code = POCBEA) -5.4 MMOL/L -4.0-4.0 L POC O2 SATURATION (test code = POCO2S) 98.6 % 90-100 N [id number] 13:06:00* Test Item Value Reference Range Interpretation Comments SODIUM (test code = NA/ABG) 142 MEQ/L 134-147 N [id number] 13:06:00* Test Item Value Reference Range Interpretation Comments POTASSIUM (test code = K/ABG) 3.2 MEQ/L 3.4-5.0 L [id number] 13:06:00* Test Item Value Reference Range Interpretation Comments CHLORIDE (test code = CL/ABG) 112 MEQ/L 100-108 H CREATININE [id number] 13:06:00* Test Item Value Reference Range Interpretation Comments CREATININE ABG (test code = CREAABG) 1.0 mg/dL 0.6-1.0 N [id number] 13:06:00* Test Item Value Reference Range Interpretation Comments HEMOGLOBIN (test code = HGB/ABG) 7.7 G/DL 11.0-15.0 L [id number] 13:06:00* Test Item Value Reference Range Interpretation Comments HEMATOCRIT (test code = HCT/ABG) 23 % 33.0-45.0 L POC IONIZED [id number] 13:06:00* Test Item Value Reference Range Interpretation Comments POC IONIZED CALCIUM (test code = POCCA) 1.06 MMOL/L 1.12-1.32 L POC [id number] 13:06:00* Test Item Value Reference Range Interpretation Comments POC GLUCOSE (test code = POCGLU) 103 MG/DL 70-110 N BASIC METABOLIC [id number] 09:25:00* Test Item Value Reference Range Interpretation Comments SODIUM (test code = NA) 139 mEq/L 134-147 N POTASSIUM (test code = K) 3.6 mEq/L 3.4-5.0 N CHLORIDE (test code = CL) 104 mEq/L 100-108 N CARBON DIOXIDE (test code = CO2) 30 mEq/L 21-33 N ANION GAP (test code = GAP) 9 0-20 N GLUCOSE (test code = GLU) 189 mg/dL 70-110 H BLOOD UREA NITROGEN (test code = BUN) 19 mg/dL 7-18 H GLOMERULAR FILTRATION RATE (test code = GFR) 44.4 70-80 L Units of measure = ml/min/1.73 m2 CREATININE (test code = CREAT) 1.2 mg/dL 0.6-1.3 N CALCIUM (test code = CA) 8.4 mg/dL 8.0-10.5 N BASIC METABOLIC [id number] 09:12:00* Test Item Value Reference Range Interpretation Comments SODIUM (test code = NA) 139 mEq/L 134-147 N POTASSIUM (test code = K) 3.6 mEq/L 3.4-5.0 N CHLORIDE (test code = CL) 104 mEq/L 100-108 N CARBON DIOXIDE (test code = CO2) 30 mEq/L 21-33 N ANION GAP (test code = GAP) 9 0-20 N GLUCOSE (test code = GLU) 189 mg/dL 70-110 H BLOOD UREA NITROGEN (test code = BUN) 19 mg/dL 7-18 H GLOMERULAR FILTRATION RATE (test code = GFR) 70-80 CREATININE (test code = CREAT) mg/dL 0.6-1.3 CALCIUM (test code = CA) 8.4 mg/dL 8.0-10.5 N [id number] 09:04:00* Test Item Value Reference Range Interpretation Comments GLUGERONIMO (test code = GLUBED) 169 MG/DL 70-110 H Performed by certified vibrating screed operator at [facility] - XR CHEST 2 [id number] 14:06:00 FAX: Teresa Rhoades [phone] Smoot: St: PRE FAX: Dwain Anderson [phone] Name: COMPA CASAS [facility] : 1950 Age/S: 68/F [address] [place] [address] Unit #: [id number] Loc: [place] [address] Phys: Teresa Olson MD Acct: [id number] Dis Date: Status: PRE [facility] PHONE #: [phone] Exam Date: 07/05/2019 1232 FAX #: [phone] Reason: PREOP- UTERINE CA EXAMS: CPT CODE: [id number] XR CHEST 2 V 87959 CHEST RADIOGRAPHS - PA AND LATERAL: COMPARISON: April 01, 2019 CLINICAL HISTORY: PREOP- UTERINE CA There is mild stable cardiomegaly. Diffuse bilateral interstitial prominence is present, similar to the prior study. Findings likely represent interstitial fibrosis. No focal infiltrates are seen. There is no pneumothorax. IMPRESSION: Probable chronic changes of interstitial fibrosis. Stable cardiomegaly. at 6416 Reported and signed by: Yariel Vasquez M.D. CC: Teresa Olson MD; Dwain Valentino MD Technologist: Shell john, RT(R) Trnscrd Date/Time/By: 07/05/2019 ( 7994) : By: [email or web address] Orig Print D/T: S: 07/05/2019 (3709) PAGE 1 Signed Report PROTHROMBIN [id number] 13:41:00* Test Item Value Reference Range Interpretation Comments PROTHROMBIN TIME PATIENT (test code = PTP) 13.4 SECONDS 9.3-12.9 H INTERNATIONAL NORMAL RATIO (test code = INR) 1.2 0.8-1.2 N TARGET INR BY INDICATION Indication INR1. Prophylaxis of venous thrombosis 2.0 - 3.0 (orthopedic surgery), Prophylaxis of venous thrombosis (other than high-risk surgery), Treatment of Deep Vein Thrombosis/Pulmonary Embolism, Prevention of systemic embolism - Tissue heart valves, Acute Myocardial Infarction (to prevent systemic embolism), Valvular heart disease, Atrial Fibrillation, Bileaflet mechanical valve in aortic position.2. Mechanical prosthetic valves (high risk), 2.5 - 3.5 Presence of Lupus Anticoagulant or Antiphospholipid Antibodies, Prevention of systemic embolism - Acute Myocardial Infarction (to prevent recurrent infarct). THROMBOPLASTIN TIME [id number] 13:41:00* Test Item Value Reference Range Interpretation Comments THROMBOPLASTIN TIME PARTIAL (test code = PTT) 27.7 Seconds 25.0-39. 5 N Therapeutic Range: 50.4 - 88.3 Seconds Effective 02/01/2019 BASIC METABOLIC [id number] 13:33:00* Test Item Value Reference Range Interpretation Comments SODIUM (test code = NA) 138 mEq/L 134-147 N POTASSIUM (test code = K) 3.4 mEq/L 3.4-5.0 N CHLORIDE (test code = CL) 105 mEq/L 100-108 N CARBON DIOXIDE (test code = CO2) 31 mEq/L 21-33 N ANION GAP (test code = GAP) 5 0-20 N GLUCOSE (test code = GLU) 98 mg/dL 70-110 N BLOOD UREA NITROGEN (test code = BUN) 22 mg/dL 7-18 H GLOMERULAR FILTRATION RATE (test code = GFR) 44.4 70-80 L Units of measure = ml/min/1.73 m2 CREATININE (test code = CREAT) 1.2 mg/dL 0.6-1.3 N CALCIUM (test code = CA) 8.5 mg/dL 8.0-10.5 N CBC W/AUTO [id number] 13:21:00* Test Item Value Reference Range Interpretation Comments WHITE BLOOD CELL (test code = WBC) 9.47 x10 3/uL 4.5-11.0 N RED BLOOD CELL (test code = RBC) 3.54 x10 6/uL 3.54-5.02 N HEMOGLOBIN (test code = HGB) 8.3 g/dL 11.0-15.0 L HEMATOCRIT (test code = HCT) 28.2 % 33.0-45.0 L MEAN CELL VOLUME (test code = MCV) 79.7 fL 81.0-99.0 L MEAN CELL HGB (test code = MCH) 23.4 pg 27.0-33.0 L MEAN CELL HGB CONCETRATION (test code = MCHC) 29.4 g/dL 33.0-37. 0 L RED CELL DISTRIBUTION WIDTH CV (test code = RDW) 14.6 % 11.5- 14.5 H RED CELL DISTRIBUTION WIDTH SD (test code = RDW-SD) 43.1 fL 37 .0-54.0 N PLATELET COUNT (test code = PLT) 216 x10 3/uL 150-400 N MEAN PLATELET VOLUME (test code = MPV) 11.5 fL 7.0-9.0 H NEUTROPHIL % (test code = NT%) 76.1 % 56.0-77.0 N IMMATURE GRANULOCYTE % (test code = IG%) 0.5 % 0.0-2.0 N LYMPHOCYTE % (test code = LY%) 12.0 % 14.0-32.0 L MONOCYTE % (test code = MO%) 8.6 % 4.8-9.0 N EOSINOPHIL % (test code = EO%) 2.3 % 0.3-3.7 N BASOPHIL % (test code = BA%) 0.5 % 0.0-2.0 N NUCLEATED RBC % (test code = NRBC%) 0.0 % 0-0 N NEUTROPHIL # (test code = NT#) 7.20 x10 3/uL 2.0-7.6 N IMMATURE GRANULOCYTE # (test code = IG#) 0.05 x10 3/uL 0.00-0.03 H LYMPHOCYTE # (test code = LY#) 1.14 x10 3/uL 1.0-3.8 N MONOCYTE # (test code = MO#) 0.81 x10 3/uL 0.1-0.8 H EOSINOPHIL # (test code = EO#) 0.22 x10 3/uL 0.0-0.2 H BASOPHIL # (test code = BA#) 0.05 x10 3/uL 0.0-0.2 N NUCLEATED RBC # (test code = NRBC#) 0.00 x10 3/uL 0.0-0.1 N MANUAL DIFF REQUIRED (test code = MDIFF) NO Sodium [id number] 20:14:00* Test Item Value Reference Range Interpretation Comments Sodium Level (test code = 2951-2) 140 136-145 [facility] CenterPotassium Orvox5708-74-86 20:14:00* Test Item Value Reference Range Interpretation Comments Potassium Level (test code = 2823-3) 3.7 3.5-5.1 [facility] CenterChloride Djjjo0247-97-22 20:14:00* Test Item Value Reference Range Interpretation Comments Chloride Level (test code = 2075-0) 103 98-107 [facility] CenterCarbon Dioxide [id number] 20:14:00* Test Item Value Reference Range Interpretation Comments Carbon Dioxide Level (test code = 2028-9) 27 22-29 [facility] CenterAnion [id number] 20:14:00* Test Item Value Reference Range Interpretation Comments Anion Gap (test code = 73867-5) 13.7 8-16 [facility] CenterBlood Urea Ejrwtaxs3031-28-21 20:14:00* Test Item Value Reference Range Interpretation Comments Blood Urea Nitrogen (test code = 3094-0) 24 7-26 [facility] CenterCreatinine2019-08-25 20:14:00* Test Item Value Reference Range Interpretation Comments Creatinine (test code = 2160-0) 1.23 0.57-1.[address] [facility] CenterBUN/Creatinine Tyfrc0831-57-77 20:14:00* Test Item Value Reference Range Interpretation Comments BUN/Creatinine Ratio (test code = 3097-3) 20 6- [facility] CenterEstimat Glomerular Filtration Rate 2019-06-12 20:14:00* Test Item Value Reference Range Interpretation Comments Estimat Glomerular Filtration Rate (test code = 299479589) 43 >60 L Ranges were taken from the National Kidney Disease Education Program and the [facility] literature.Reference ranges:60 or greater: Wrikqp72-21 ( for 3 consecutive months): Chronic kidney disease 15 or less: Kidney failureSt. David's Medical CenterGlucose Vbsas8234-18-49 20:14:00* Test Item Value Reference Range Interpretation Comments Glucose Level (test code = DVY6558) 139 74-[address] [facility] CenterCalcium Uhvuu1864-47-60 20:14:00* Test Item Value Reference Range Interpretation Comments Calcium Level (test code = 18348-4) 9.2 8.4-10.2 [facility] CenterProthrombin Dthl0814-70-34 20:13:00* Test Item Value Reference Range Interpretation Comments Prothrombin Time (test code = 5902-2) 14.5 11.9-14.5 [facility] CenterProthromb Time International Ratio 2019-06-12 20:13:00* Test Item Value Reference Range Interpretation Comments Prothromb Time International Ratio (test code = 6301-6) 1.08 Oral Anticoagulant Therapy INR Values:1. Low Intensity Therapy 1.5 - 2.02 . Moderate Intensity Therapy 2.0 - 3.03. High Intensity Therapy(1) 2.5 - 3. 54. High Intensity Therapy(2) 3.0 - 4.05. Panic Value INR > 5.0 [facility] Medical CenterActivated Partial Thromboplast Time 2019-06-12 20:13:00* Test Item Value Reference Range Interpretation Comments Activated Partial Thromboplast Time (test code = 42860-0) 28.0 23.8-35.5 [facility] CenterProthrombin Qsrw7681-54-03 20:13:00* Test Item Value Reference Range Interpretation Comments Prothrombin Time (test code = 5902-2) 14.5 11.9-14.5 [facility] CenterProthromb Time International Ratio 2019-06-12 20:13:00* Test Item Value Reference Range Interpretation Comments Prothromb Time International Ratio (test code = 6301-6) 1.08 Oral Anticoagulant Therapy INR Values:1. Low Intensity Therapy 1.5 - 2.02 . Moderate Intensity Therapy 2.0 - 3.03. High Intensity Therapy(1) 2.5 - 3. 54. High Intensity Therapy(2) 3.0 - 4.05. Panic Value INR > 5.0 [facility] Medical CenterActivated Partial Thromboplast Time 2019-06-12 20:13:00* Test Item Value Reference Range Interpretation Comments Activated Partial Thromboplast Time (test code = 34862-3) 28.0 23.8-35.5 [facility] CenterProthrombin [id number] 20:13:00* Test Item Value Reference Range Interpretation Comments Prothrombin Time (test code = 5902-2) 14.5 11.9-14.5 [facility] CenterProthromb Time International Ratio 2019-06-12 20:13:00* Test Item Value Reference Range Interpretation Comments Prothromb Time International Ratio (test code = 6301-6) 1.08 Oral Anticoagulant Therapy INR Values:1. Low Intensity Therapy 1.5 - 2.02 . Moderate Intensity Therapy 2.0 - 3.03. High Intensity Therapy(1) 2.5 - 3. 54. High Intensity Therapy(2) 3.0 - 4.05. Panic Value INR > 5.0 [facility] Medical CenterActivated Partial Thromboplast Time 2019-06-12 20:13:00* Test Item Value Reference Range Interpretation Comments Activated Partial Thromboplast Time (test code = 72622-7) 28.0 23.8-35.5 [facility] CenterWhite Blood Vgayt3895-32-12 19:51:00* Test Item Value Reference Range Interpretation Comments White Blood Count (test code = 6690-2) 9.57 4.8-10.8 [facility] Medical CenterRed Blood Kyshm6268-15-41 19:51:00* Test Item Value Reference Range Interpretation Comments Red Blood Count (test code = 789-8) 4.11 3.6-5.1 [facility] CenterHemoglobin2019-08-25 19:51:00* Test Item Value Reference Range Interpretation Comments Hemoglobin (test code = 39440-1) 10.1 12.0-16.[address] [facility] CenterHematocrit2019-08-25 19:51:00* Test Item Value Reference Range Interpretation Comments Hematocrit (test code = 4544-3) 32.8 34.2-44.[address] [facility] CenterMean Corpuscular Qevcjh1881-64-77 19:51:00* Test Item Value Reference Range Interpretation Comments Mean Corpuscular Volume (test code = 787-2) 79.8 81-[address] [facility] CenterMean Corpuscular Gyiwaemvjv3044-53-42 19:51:00* Test Item Value Reference Range Interpretation Comments Mean Corpuscular Hemoglobin (test code = 785-6) 24.6 28-[address] [facility] CenterMean Corpuscular Hemoglobin Concent 2019-06-12 19:51:00* Test Item Value Reference Range Interpretation Comments Mean Corpuscular Hemoglobin Concent (test code = 786-4) 30.8 31-[address] [facility] CenterRed Cell Distribution Qqjfj4384-27-29 19:51:00* Test Item Value Reference Range Interpretation Comments Red Cell Distribution Width (test code = 20897-4) 15.4 11.7 -14.[address] [facility] Medical CenterPlatelet Xawlj7075-07-27 19:51:00* Test Item Value Reference Range Interpretation Comments Platelet Count (test code = 777-3) 194 140-360 [facility] CenterNeutrophils (%) (Auto)2019-06-12 19:51:00 * Test Item Value Reference Range Interpretation Comments Neutrophils (%) (Auto) (test code = 43566-7) 70.7 38.7-80.0 [facility] CenterLymphocytes (%) (Auto)2019-06-12 19:51:00 * Test Item Value Reference Range Interpretation Comments Lymphocytes (%) (Auto) (test code = 736-9) 16.3 18.0-39.[address] [facility] CenterMonocytes (%) (Auto)2019-06-12 19:51:00* Test Item Value Reference Range Interpretation Comments Monocytes (%) (Auto) (test code = 5905-5) 9.1 4.4-11.3 [facility] CenterEosinophils (%) (Auto)2019-06-12 19:51:00 * Test Item Value Reference Range Interpretation Comments Eosinophils (%) (Auto) (test code = 713-8) 3.1 0.0-6.0 [facility] CenterBasophils (%) (Auto)2019-06-12 19:51:00* Test Item Value Reference Range Interpretation Comments Basophils (%) (Auto) (test code = 706-2) 0.4 0.0-1.0 [facility] CenterIM GRANULOCYTES %2019-06-12 19:51:00* Test Item Value Reference Range Interpretation Comments IM GRANULOCYTES % (test code = IM GRANULOCYTES %) 0.4 0.0- 1.0 [facility] CenterNeutrophils # (Auto)2019-06-12 19:51:00* Test Item Value Reference Range Interpretation Comments Neutrophils # (Auto) (test code = 751-8) 6.8 2.1-6.9 [facility] CenterLymphocytes # (Auto)2019-06-12 19:51:00* Test Item Value Reference Range Interpretation Comments Lymphocytes # (Auto) (test code = 88993-5) 1.6 1.0-3.2 [facility] CenterMonocytes # (Auto)2019-06-12 19:51:00* Test Item Value Reference Range Interpretation Comments Monocytes # (Auto) (test code = 742-7) 0.9 0.2-0.[address] [facility] CenterEosinophils # (Auto)2019-06-12 19:51:00* Test Item Value Reference Range Interpretation Comments Eosinophils # (Auto) (test code = 711-2) 0.3 0.0-0.4 [facility] CenterBasophils # (Auto)2019-06-12 19:51:00* Test Item Value Reference Range Interpretation Comments Basophils # (Auto) (test code = 704-7) 0.0 0.0-0.1 [facility] Medical CenterAbsolute Immature Granulocyte (auto 2019-06-12 19:51:00* Test Item Value Reference Range Interpretation Comments Absolute Immature Granulocyte (auto (kayla t code = Absolute Immature Granulocyte (auto) 0.04 0-0.1 [facility] CenterBASIC METABOLIC [id number] 10:32:00 * Test Item Value Reference Range Interpretation Comments SODIUM (test code = NA) 141 mmol/L 136-145 N POTASSIUM (test code = K) 4.1 mmol/L 3.5-5.1 N CHLORIDE (test code = CL) 105.0 mmol/L 98-107 N CARBON DIOXIDE (test code = CO2) 32.0 mmol/L 21-32 N ANION GAP (test code = GAP) 8.1 10-20 L GLUCOSE (test code = GLU) 99 mg/dL 74-106 N BLOOD UREA NITROGEN (test code = BUN) 21 mg/dL 7-18 H GLOMERULAR FILTRATION RATE (test code = GFR) 55 mL/min >=60 Estimated GFR by using Modified MDRD formula.Chronic kidney disease is defined as either kidney damageor GFR <60 mL/min/1.73 m2 for >3 months. CREATININE (test code = CREAT) 1.00 mg/dL 0.55-1.02 N Note change in reference range due to change in reagent. BUN/CREATININE RATIO (test code = BUN/CREA) 21.0 10-20 H CALCIUM (test code = CA) 8.8 mg/dL 8.5-10.1 N BASIC METABOLIC [id number] 10:15:00* Test Item Value Reference Range Interpretation Comments SODIUM (test code = NA) 141 mmol/L 136-145 N POTASSIUM (test code = K) 4.1 mmol/L 3.5-5.1 N CHLORIDE (test code = CL) 105.0 mmol/L 98-107 N CARBON DIOXIDE (test code = CO2) mmol/L 21-32 ANION GAP (test code = GAP) 10-20 GLUCOSE (test code = GLU) mg/dL 74-106 BLOOD UREA NITROGEN (test code = BUN) mg/dL 7-18 GLOMERULAR FILTRATION RATE (test code = GFR) mL/min >=60 CREATININE (test code = CREAT) mg/dL 0.55-1.02 BUN/CREATININE RATIO (test code = BUN/CREA) 10-20 CALCIUM (test code = CA) mg/dL 8.5-10.1 - XR CHEST 2 [id number] 10:02:00 FAX: Bonifacio Iyer MD [phone] Smoot: O St: REG FAX: Dwain Anderson [phone] Name: COMPA CASAS [facility] : 1950 Age/S: 68/F [address] [facility] Unit #: [id number] Loc: [place] [address] Phys: Bonifacio Becerra MD Acct: [id number] Dis Date: Status: REG CLI PHONE #: [phone] Exam Date: 04/01/2019 0945 FAX #: [phone] Reason: 647.33,F41.9,I10,E66.0,J96.11,R05 EXAMS: CPT CODE: [id number] XR CHEST 2 V 05834 HISTORY: R05/I10. AP and lateral view of the chest: COMPARISON: CT chest from August 16, 2018. Extensive lung scarring greater towards the left is unchanged from previous CT scan. Mild basal predominance. No effusion or congestion or infiltrates. Ca rdiomegaly. IMPRESSION: Stable scarring, great er on the left with slight loss of lung volume on the left. No acute inf iltrates, effusion or congestion. at 1002 Reported and signed by: Rita Armendariz M.D. CC: Bonifacio Becerra MD; Dwain Anderson Technologist: MATTHIAS NOBLE (R) Trnscrd Date/Time/By: 04/01/2019 (1002) : By: [email or web address] Orig Print D/T: S: 04/01/2019 (1005) PAGE 1 Signed Report US CHEST (INCL MEDIASTINUM) 2018-04-05 12:18:00 [place] [address] Patient Name: COMPA CASAS MR #: [id number] : 1950 Age/Sex: 67/F Req #: [id number] Adm Physician: Ordered by: BONIFACIO BECERRA MD Report #: [id number] Location: Room/Bed: Procedure: [id number] US/US CHEST (INCL MEDIASTIN UM) Exam Date: 04/05/18 Exam Time: 1126 REPORT STATUS: Signed PROCEDURE: US CHEST (INCL MEDIASTINUM) COMPARISON: None. INDICATION: Large left pleural effusion reported by outside imaging. ZACARIAS HNIQUE: Balderas scale color Doppler ultrasound chest PROCEDURE: The patie nt was transferred from an outside facility for thoracentesis given reported large pleural effusion on outside imaging. Valving Machine Operator ultrasound was performed of the chest. FINDINGS: No evidence of pleural effusion within the right or left chest. CONCLUSION: There is no evidence of significant fluid volume within the chest. Thoracentesis was aborted. Dictated by: Van Ruiz M.D. on 04/05/2018 at 12:18 Electronically approved b y: Van Ruiz M.D. on 04/05/2018 at 12:18 Dictated By : VAN RUIZ MD 121 8 Transcribed By: SOLO on 04/05/18 1218 COPY TO: BONIFACIO BECERRA MD [facility] Hynjs7822-54-64 08:34:00* Test Item Value Reference Range Interpretation Comments Phosphorus Level (test code = YAP6879) 3.0 2.3-4.7 [facility] Xbtcn3930-84-19 08:26:00* Test Item Value Reference Range Interpretation Comments Sodium Level (test code = 2951-2) 140 136-145 [facility] CenterPotassium Grhtu1462-23-22 08:26:00* Test Item Value Reference Range Interpretation Comments Potassium Level (test code = 2823-3) 3.3 3.5-5.[address] [facility] CenterChloride Fqcry8590-43-57 08:26:00* Test Item Value Reference Range Interpretation Comments Chloride Level (test code = 2075-0) 98 98-107 [facility] CenterCarbon Dioxide Zcuqt1280-70-54 08:26:00* Test Item Value Reference Range Interpretation Comments Carbon Dioxide Level (test code = 2028-9) 35 22-[address] [facility] CenterAnion Kwe3036-77-05 08:26:00* Test Item Value Reference Range Interpretation Comments Anion Gap (test code = 33062-1) 10.3 8-16 [facility] CenterBlood Urea Tuumuruf0770-77-47 08:26:00* Test Item Value Reference Range Interpretation Comments Blood Urea Nitrogen (test code = 3094-0) 32 7-[address] [facility] CenterCreatinine2018-03-22 08:26:00* Test Item Value Reference Range Interpretation Comments Creatinine (test code = 2160-0) 0.54 0.57-1.[address] [facility] CenterBUN/Creatinine Qrbjc4731-94-10 08:26:00* Test Item Value Reference Range Interpretation Comments BUN/Creatinine Ratio (test code = 3097-3) 59 6-[address] [facility] CenterEstimat Glomerular Filtration Rate 2018-01-07 08:26:00* Test Item Value Reference Range Interpretation Comments Estimat Glomerular Filtration Rate (test code = 99389-4) 60- >60 Ranges were taken from the National Kidney Disease Education Program and the [facility] literature.Reference ranges:60 or greater: Oaixpw38-92 ( for 3 consecutive months): Chronic kidney disease 15 or less: Kidney failureSt. David's Medical CenterGlucose Lhhdb2952-11-69 08:26:00* Test Item Value Reference Range Interpretation Comments Glucose Level (test code = LKV0224) 183 74-[address] [facility] CenterCalcium Klsnj1721-93-55 08:26:00* Test Item Value Reference Range Interpretation Comments Calcium Level (test code = 21922-2) 8.4 8.4-10.2 [facility] CenterMagnesium Szmmr5436-25-43 08:26:00* Test Item Value Reference Range Interpretation Comments Magnesium Level (test code = 77372-9) 1.4 1.3-2.1 [facility] CenterBedside Ujvrvbb9814-90-98 00:17:00* Test Item Value Reference Range Interpretation Comments Bedside Glucose (test code = 06171-7) 202 70-120 H Meter ID: [id number]. David's Medical CenterWhite Blood Count 2018-01-05 06:23:00* Test Item Value Reference Range Interpretation Comments White Blood Count (test code = 6690-2) 16.48 4.8-10.[address] [facility] CenterRed Blood Rmmow1378-20-12 06:23:00* Test Item Value Reference Range Interpretation Comments Red Blood Count (test code = 789-8) 3.86 3.6-5.1 [facility] CenterHemoglobin2018-03-20 06:23:00* Test Item Value Reference Range Interpretation Comments Hemoglobin (test code = 30786-4) 10.5 12.0-16.[address] [facility] CenterHematocrit2018-03-20 06:23:00* Test Item Value Reference Range Interpretation Comments Hematocrit (test code = 4544-3) 32.7 34.2-44.[address] [facility] CenterMean Corpuscular Iknvym1732-46-30 06:23:00* Test Item Value Reference Range Interpretation Comments Mean Corpuscular Volume (test code = 787-2) 84.7 81-99 [facility] CenterMean Corpuscular Asctfhawhg2201-11-43 06:23:00* Test Item Value Reference Range Interpretation Comments Mean Corpuscular Hemoglobin (test code = 785-6) 27.2 28-[address] [facility] Medical CenterMean Corpuscular Hemoglobin Concent 2018-01-05 06:23:00* Test Item Value Reference Range Interpretation Comments Mean Corpuscular Hemoglobin Concent (test code = 786-4) 32.1 31-35 [facility] CenterRed Cell Distribution Bumkn7001-99-31 06:23:00* Test Item Value Reference Range Interpretation Comments Red Cell Distribution Width (test code = 95393-5) 17.2 11.7 -14.[address] [facility] CenterPlatelet Yjhgd4491-18-87 06:23:00* Test Item Value Reference Range Interpretation Comments Platelet Count (test code = 777-3) 196 140-360 [facility] CenterNeutrophils (%) (Auto)2018-01-05 06:23:00 * Test Item Value Reference Range Interpretation Comments Neutrophils (%) (Auto) (test code = 47366-9) 84.7 38.7-80.[address] [facility] CenterLymphocytes (%) (Auto)2018-01-05 06:23:00 * Test Item Value Reference Range Interpretation Comments Lymphocytes (%) (Auto) (test code = 736-9) 6.4 18.0-39.[address] [facility] CenterMonocytes (%) (Auto)2018-01-05 06:23:00* Test Item Value Reference Range Interpretation Comments Monocytes (%) (Auto) (test code = 5905-5) 6.5 4.4-11.3 [facility] CenterEosinophils (%) (Auto)2018-01-05 06:23:00 * Test Item Value Reference Range Interpretation Comments Eosinophils (%) (Auto) (test code = 713-8) 1.8 0.0-6.0 [facility] CenterBasophils (%) (Auto)2018-01-05 06:23:00* Test Item Value Reference Range Interpretation Comments Basophils (%) (Auto) (test code = 706-2) 0.1 0.0-1.0 [facility] CenterIM GRANULOCYTES %2018-01-05 06:23:00* Test Item Value Reference Range Interpretation Comments IM GRANULOCYTES % (test code = IM GRANULOCYTES %) 0.5 0.0- 1.0 [facility] CenterNeutrophils # (Auto)2018-01-05 06:23:00* Test Item Value Reference Range Interpretation Comments Neutrophils # (Auto) (test code = 751-8) 14.0 2.1-6.[address] [facility] CenterLymphocytes # (Auto)2018-01-05 06:23:00* Test Item Value Reference Range Interpretation Comments Lymphocytes # (Auto) (test code = 19224-2) 1.1 1.0-3.2 [facility] CenterMonocytes # (Auto)2018-01-05 06:23:00* Test Item Value Reference Range Interpretation Comments Monocytes # (Auto) (test code = 742-7) 1.1 0.2-0.[address] [facility] CenterEosinophils # (Auto)2018-01-05 06:23:00* Test Item Value Reference Range Interpretation Comments Eosinophils # (Auto) (test code = 711-2) 0.3 0.0-0.4 [facility] CenterBasophils # (Auto)2018-01-05 06:23:00* Test Item Value Reference Range Interpretation Comments Basophils # (Auto) (test code = 704-7) 0.0 0.0-0.1 [facility] CenterAbsolute Immature Granulocyte (auto 2018-01-05 06:23:00* Test Item Value Reference Range Interpretation Comments Absolute Immature Granulocyte (auto (kayla t code = Absolute Immature Granulocyte (auto) 0.09 0-0.1 [facility] Medical CenterGastric Fluid Occult Iwozr2384-96-86 05:44:00* Test Item Value Reference Range Interpretation Comments Gastric Fluid Occult Blood (test code = 59569-6) TEST NOT PERFORMED BY REFERENCE LAB; NOT HANDLED PROPERLY BY [facility] HospitalDifferential Total Cells Counted 2018-01-03 13:57:00* Test Item Value Reference Range Interpretation Comments Differential Total Cells Counted (test code = Karen denney Total Cells Counted) 100 [facility] CenterNeutrophils % (Manual)2018-01-03 13:57:00 * Test Item Value Reference Range Interpretation Comments Neutrophils % (Manual) (test code = 81240-2) 90 40-[address] [facility] CenterBand Neutrophils %2018-01-03 13:57:00* Test Item Value Reference Range Interpretation Comments Band Neutrophils % (test code = 764-1) 1 [facility] CenterLymphocytes % (Manual)2018-01-03 13:57:00 * Test Item Value Reference Range Interpretation Comments Lymphocytes % (Manual) (test code = 737-7) 1 19-[address] [facility] CenterMonocytes % (Manual)2018-01-03 13:57:00* Test Item Value Reference Range Interpretation Comments Monocytes % (Manual) (test code = 744-3) 8 3.4-9.0 [facility] CenterNucleated Red Blood Saclu4198-87-20 13:57:00* Test Item Value Reference Range Interpretation Comments Nucleated Red Blood Cells (test code = 75288-0) 1 [facility] CenterPlatelet Kduttrpl8780-04-67 10:11:00* Test Item Value Reference Range Interpretation Comments Platelet Estimate (test code = 17453-1) SLIGHTLY DECREASED [facility] CenterPlatelet Morphology Osfshbf9165-04-27 10:11:00* Test Item Value Reference Range Interpretation Comments Platelet Morphology Comment (test code = 43205-5) NORMAL [facility] CenterRed Cell Morphology Bidbyqw6901-28-02 10:11:00* Test Item Value Reference Range Interpretation Comments Red Cell Morphology Comment (test code = 6742-1) NORMAL [facility] CenterHypochromasia2018-03-16 09:24:00* Test Item Value Reference Range Interpretation Comments Hypochromasia (test code = 728-6) SLIGHT [facility] CenterAnisocytosis2018-03-16 09:24:00* Test Item Value Reference Range Interpretation Comments Anisocytosis (test code = 702-1) SLIGHT [facility] CenterArterial Blood eJ1209-85-69 13:36:00* Test Item Value Reference Range Interpretation Comments Arterial Blood pH (test code = 2744-1) 7.49 7.31-7.[address] [facility] CenterArterial Blood Partial Pressure CO2 2017-12-31 13:36:00* Test Item Value Reference Range Interpretation Comments Arterial Blood Partial Pressure CO2 (test code = 2018-8) 56 41-[address] [facility] CenterArterial Blood Partial Pressure O2 2017-12-31 13:36:00* Test Item Value Reference Range Interpretation Comments Arterial Blood Partial Pressure O2 (test code = 2018-8) 89 80-105 [facility] CenterArterial Blood HBK47619-33-84 13:36:00* Test Item Value Reference Range Interpretation Comments Arterial Blood HCO3 (test code = 1960-4) 43 23-[address] [facility] CenterArterial Blood Base Jetgcd6593-59-79 13:36:00* Test Item Value Reference Range Interpretation Comments Arterial Blood Base Excess (test code = 1925-7) 19.0 -2-[address] [facility] CenterArterial Blood Oxygen Saturation 2017-12-31 13:36:00* Test Item Value Reference Range Interpretation Comments Arterial Blood Oxygen Saturation (test code = 2708-6) 97.0 95-98 [facility] CenterActivated Partial Thromboplast Time 2017-12-31 06:39:00* Test Item Value Reference Range Interpretation Comments Activated Partial Thromboplast Time (test code = 15772-7) 26.1 23.8-35.5 [facility] CenterProthrombin Ozxy1978-13-36 06:36:00* Test Item Value Reference Range Interpretation Comments Prothrombin Time (test code = 5902-2) 15.3 11.9-14.[address] [facility] CenterProthromb Time International Ratio 2017-12-31 06:36:00* Test Item Value Reference Range Interpretation Comments Prothromb Time International Ratio (test code = 6301-6) 1.31 Oral Anticoagulant Therapy INR Values:1. Low Intensity Therapy 1.5 - 2.02 . Moderate Intensity Therapy 2.0 - 3.03. High Intensity Therapy(1) 2.5 - 3. 54. High Intensity Therapy(2) 3.0 - 4.05. Panic Value INR > 5.0 [facility] Centertool Occult Pbmru8491-53-25 13:18:00* Test Item Value Reference Range Interpretation Comments Stool Occult Blood (test code = 2335-8) NEGATIVE NEGATIVE [facility] CenterVancomycin Level Bhpehx3100-47-32 00:02:00* Test Item Value Reference Range Interpretation Comments Vancomycin Level Trough (test code = 4092-3) 16.2 5.0-10.0 HH Results called to KENA sun/icu at 0000 on 12/28/17 by Lindsey Ramirez. RB OK .[facility] CenterAmmonia2018-03-11 12:49:00* Test Item Value Reference Range Interpretation Comments Ammonia (test code = 39319-0) 80 31-123 [facility] CenterBlood Gdewzov6287-67-50 17:13:00* Test Item Value Reference Range Interpretation Comments Blood Culture (test code = 79307539) NO GROWTH AFTER 5 DAYS, FINAL REPORT [facility] CenterUrine Legionella Mmzkrbw9468-81-39 08:44:00* Test Item Value Reference Range Interpretation Comments Urine Legionella Antigen (test code = 41281-9) Negative Negativ e Presumptive negative for L. pneumophila serogroup 1 antigenin urine, suggesting no recent or current infection.Legionnaires' disease cannot be ruled out since o therserogroups and species may also cause disease.Performed at: - [facility] [address] [place], [place] [id number] Director: Andrew restrepo MD, Phone: [phone]. David's Medical CenterUrine Creatinine 24 Vxqt1197-76-47 00:47:00* Test Item Value Reference Range Interpretation Comments Urine Creatinine 24 Hour (test code = 2162-6) 2227 302-5521 [facility] CenterCreatinine Xncgbiyzb2298-55-09 00:47:00* Test Item Value Reference Range Interpretation Comments Creatinine Clearance (test code = 53570-4) 69 88-[address] [facility] CenterUrine Collection Vfrf8942-38-68 00:43:00 * Test Item Value Reference Range Interpretation Comments Urine Collection Time (test code = 43390-4) 24 [facility] CenterUrine Total Pbofis0199-11-79 00:43:00* Test Item Value Reference Range Interpretation Comments Urine Total Volume (test code = 89193-4) 0580 564-0501 [facility] CenterUrine Vvdpusqttq3609-61-98 00:43:00* Test Item Value Reference Range Interpretation Comments Urine Creatinine (test code = 2161-8) 107.79 47-110 [facility] Centerp-ANCA Auyhb0981-02-81 16:20:00* Test Item Value Reference Range Interpretation Comments p-ANCA Titer (test code = 96214-7) -1:20 Neg:<1:20 The presence of positive fluorescence exhibiting P-ANCA orC-ANCA patterns alone is not specific for the diagnosis ofWegener's Granulomatosis (WG) or microscopic polyangiitis.Decisions about treatment should not be based solely onANCA IFA re sults. The International ANCA Group Consensusrecommends follow up testing of po sitive sera with both NV-3 and MPO-ANCA enzyme immunoassays. As many as 5% serum samples are positive only by EIA. Ref. AM J Clin Rsfcof8645;111:507-513.[facility] Centerc-ANCA Hxusg5828-25-83 16:20:00* Test Item Value Reference Range Interpretation Comments c-ANCA Titer (test code = 60521-5) -1:20 Neg:<1:20 [facility] CenterAtypical t-FXSS8972-02YUTI0985-26-80 16:20:00* Test Item Value Reference Range Interpretation Comments Atypical p-ANCA (test code = 41621-8) 1:40 Neg:<1:20 H The atypical pANCA pattern has been observed in asignificant percentage of patie nts with ulcerative colitis,primary sclerosing cholangitis and autoimmune hepati tis.Performed at: [facility] [address] [id number] Director: Andrew Ruiz MD, Phone: [phone]. David's Medical CenterChlamydia trachomatis IgM Ydsmgpof1541-35-57 13:50:00* Test Item Value Reference Range Interpretation Comments Chlamydia trachomatis IgM Antibody (test code = 51778-0) -0.8 0.0-0.7 Negative <0.8 Borderline 0.8 - 1.0 Positive > 1.0Results for this test are for research purposesonly by the assay's manufactur er. The performancecharacteristics of this product have not beenestablished. R esults should not be used as adiagnostic procedure without confirmation of thedi agnosis by another medically established diagnosticproduct or procedure.Performe d at: [employer] [id number] Dire ctor: Andrew Ruiz MD, Phone: [phone]. David's Medical CenterMycoplasma pneumoniae IgG Gwhzjukm4667-33-80 07:34:00* Test Item Value Reference Range Interpretation Comments Mycoplasma pneumoniae IgG Antibody (test code = 5255-5) 675 0-99 H Negative: <100 Indeterminate: 100 - 320 Positive: > 320The reference interval established is intended as abaseline only. Values > 100 may indicate a recentinfection with Mycoplasma pneumoniae and need to beconf irmed either by a positive IgM result and/or anadditional specimen drawn 2-4 wee ks later showing asignificant increase in antibody levels.[facility] CenterMycoplasma pneumoniae IgM Uxgimodu9653-94-17 07:34:00* Test Item Value Reference Range Interpretation Comments Mycoplasma pneumoniae IgM Antibody (test code = 118008657) -770 0-769 Negative <770Clinically significant amount of M. pneumoniae antibodynot detected. Low Positive 770 - 950M. pneumoniae specific IgM presumptively detected. Itis recommended that another sample be collected 1-2weeks later to assure reactivity. Positive >950Highly significant amount of M. pneumoniae specificIgM antibody detected.Performed at: [employer] [id number] Director: Andrew Ruiz MD, Phone: [phone]. David's Medical Center Total Mxhhfjszm7139-55-62 06:46:00* Test Item Value Reference Range Interpretation Comments Total Bilirubin (test code = 1975-2) 0.6 0.2-1.2 [facility] CenterAspartate Amino Transf (AST/SGOT) 2017-12-23 06:46:00* Test Item Value Reference Range Interpretation Comments Aspartate Amino Transf (AST/SGOT) (test code = Aspartate Amino Transf (AST/SGOT)) 50 5-[address] [facility] CenterAlanine Aminotransferase (ALT/SGPT) 2017-12-23 06:46:00* Test Item Value Reference Range Interpretation Comments Alanine Aminotransferase (ALT/SGPT) (test code = 1742-6) 23 0-55 [facility] CenterTotal Iyjmfgy9992-90-50 06:46:00* Test Item Value Reference Range Interpretation Comments Total Protein (test code = 2885-2) 6.0 6.5-8.[address] [facility] CenterAlbumin2018-03-07 06:46:00* Test Item Value Reference Range Interpretation Comments Albumin (test code = 1751-7) 1.7 3.5-5.[address] [facility] CenterGlobulin2018-03-07 06:46:00* Test Item Value Reference Range Interpretation Comments Globulin (test code = 12451-3) 4.3 2.3-3.[address] [facility] CenterAlbumin/Globulin Waxki6978-11-96 06:46:00 * Test Item Value Reference Range Interpretation Comments Albumin/Globulin Ratio (test code = 1759-0) 0.4 0.8-2.[address] [facility] CenterAlkaline Luxbrfsywxf9589-94-88 06:46:00* Test Item Value Reference Range Interpretation Comments Alkaline Phosphatase (test code = 6768-6) 82 40-150 [facility] CenterUrine Rghdoyadpxe8328-59-39 00:23:00* Test Item Value Reference Range Interpretation Comments Urine Eosinophils (test code = 87470-6) NONE SEEN NONE SEEN [facility] CenterUrine Random Total Vksfbbe6172-97-04 00:07:00* Test Item Value Reference Range Interpretation Comments Urine Random Total Protein (test code = 2888-6) 73.9 1-[address] [facility] CenterUrine Random Uucnzu4545-58-77 00:07:00* Test Item Value Reference Range Interpretation Comments Urine Random Sodium (test code = 2955-3) -20 [facility] CenterUrine LBD5501-01-53 23:54:00* Test Item Value Reference Range Interpretation Comments Urine WBC (test code = 5821-4) 6-10 0-[address] [facility] CenterUrine BIJ3333-69-12 23:54:00* Test Item Value Reference Range Interpretation Comments Urine RBC (test code = 06866-1) 11-20 0-[address] [facility] CenterUrine Mepciwqj0832-97-28 23:54:00* Test Item Value Reference Range Interpretation Comments Urine Bacteria (test code = 32675-1) MODERATE NONE H [facility] Epithelial Izpyy3399-98-18 23:54:00 * Test Item Value Reference Range Interpretation Comments Urine Epithelial Cells (test code = 32894-1) RARE NONE [facility] CenterUrine Amorphous Mcildgrq4181-93-63 23:54:00* Test Item Value Reference Range Interpretation Comments Urine Amorphous Sediment (test code = 8246-1) FEW FEW [facility] CenterUrine Pmbcg0890-97-93 23:48:00* Test Item Value Reference Range Interpretation Comments Urine Color (test code = 5778-6) YELLOW YELLOW [facility] CenterUrine Eheocau2339-97-45 23:48:00* Test Item Value Reference Range Interpretation Comments Urine Clarity (test code = 29579-7) SL CLOUDY CLEAR [facility] CenterUrine Specific Gdrkvru0469-05-21 23:48:00 * Test Item Value Reference Range Interpretation Comments Urine Specific [place] (test code = 5811-5) 1.020 1.010-1.[address] [facility] CenterUrine sN9579-70-70 23:48:00* Test Item Value Reference Range Interpretation Comments Urine pH (test code = 37773-5) 5 5-7 [facility] CenterUrine Leukocyte Djnrrkpt6162-72-79 23:48:00* Test Item Value Reference Range Interpretation Comments Urine Leukocyte Esterase (test code = 5799-2) NEGATIVE NEGATIVE [facility] CenterUrine Ryilybj0910-87-39 23:48:00* Test Item Value Reference Range Interpretation Comments Urine Nitrite (test code = 40581-5) NEGATIVE NEGATIVE [facility] CenterUrine Ofuwhxn2043-94-19 23:48:00* Test Item Value Reference Range Interpretation Comments Urine Protein (test code = 5804-0) 1+ NEGATIVE H [facility] CenterUrine Glucose (UA)2017-12-22 23:48:00* Test Item Value Reference Range Interpretation Comments Urine Glucose (UA) (test code = 2349-9) NEGATIVE NEGATIVE [facility] CenterUrine Hkqupoo9818-68-22 23:48:00* Test Item Value Reference Range Interpretation Comments Urine Ketones (test code = 06265-0) NEGATIVE NEGATIVE [facility] CenterUrine Vdrdlewsqkny3101-39-25 23:48:00* Test Item Value Reference Range Interpretation Comments Urine Urobilinogen (test code = 50317-0) 1 0.2-1 [facility] CenterUrine Seukfvbtq4639-26-51 23:48:00* Test Item Value Reference Range Interpretation Comments Urine Bilirubin (test code = 1978-6) 1+ NEGATIVE H [facility] CenterUrine Djwfw4402-61-80 23:48:00* Test Item Value Reference Range Interpretation Comments Urine Blood (test code = 09280-2) 4+ NEGATIVE H [facility] CenterChlamydia psittaci IgM Ojwzsoqi9230-39-67 20:05:00* Test Item Value Reference Range Interpretation Comments Chlamydia psittaci IgM Antibody (test code = 6917-9) -1:10 N eg:<1:10 This test was developed and its performance characteristicsdetermined by [employer] . It has not been cleared or approvedby the Food and Drug Administration. The FDA hasdetermined that such clearance or approval is notnecessary.Performed at: [address] [id number] Director: Andrew Ruiz MD, Phone: [phone]. [facility]'s Medical Center Anti-Nuclear Antibody Vbuhbl4244-81-22 13:40:00* Test Item Value Reference Range Interpretation Comments Anti-Nuclear Antibody Screen (test code = 5048-4) Negative . Negative <1:80 Borderline 1:80 Positive > 1:80Performed at: [facility] [address] [id number]Lab Director: Paul Ann MD, Phone: [phone]. David's Medical CenterInfluenza Virus Types A,B Yglcvtr3232-31-47 11:20:00* Test Item Value Reference Range Interpretation Comments Influenza Virus Types A,B Antigen (test code = 48425-7) NEGATIVE NEGATIVE [facility] CenterBody Fluid Rsyu3654-84-58 18:10:00* Test Item Value Reference Range Interpretation Comments Body Fluid Type (test code = 93745-9) PLEURAL LAVAGE BAL-RMLCHI [facility]app [facility] CenterBody Fluid Nbwpo3363-91-16 18:10:00* Test Item Value Reference Range Interpretation Comments Body Fluid Color (test code = 6824-7) WHITE [facility] CenterBody Fluid Ylxrhjbwqe4179-48-75 18:10:00 * Test Item Value Reference Range Interpretation Comments Body Fluid Appearance (test code = 9335-1) CLOUDY [facility] Fluid HJF6336-08-51 18:10:00* Test Item Value Reference Range Interpretation Comments Body Fluid WBC (test code = 6743-9) 829 [facility] Fluid JCR3421-83-30 18:10:00* Test Item Value Reference Range Interpretation Comments Body Fluid RBC (test code = 6741-3) 31 [facility] CenterBody Fluid Atgkuwkkshe2307-49-71 17:43:00 * Test Item Value Reference Range Interpretation Comments Body Fluid Neutrophils (test code = 25597-7) 86 [facility] Fluid Dcgysyzbqbe3892-17-25 17:43:00 * Test Item Value Reference Range Interpretation Comments Body Fluid Lymphocytes (test code = 28015998) 11 [facility] Fluid Cfswdvszb9894-49-86 17:43:00* Test Item Value Reference Range Interpretation Comments Body Fluid Monocytes (test code = 25669-8) 3 [facility] CenterBody Fluid Total Cells Nvjsaoa8705-93-85 17:43:00* Test Item Value Reference Range Interpretation Comments Body Fluid Total Cells Counted (test code = 13176-5) 100 [facility] CenterFerritin2018-03-05 07:26:00* Test Item Value Reference Range Interpretation Comments Ferritin (test code = 2276-4) 780.10 4.63-204.[address] [facility] CenterFree Fijgjzwzz4298-73-17 07:26:00* Test Item Value Reference Range Interpretation Comments Free Thyroxine (test code = 3024-7) 0.94 0.9-1.8 [facility] CenterThyroid Stimulating Hormone (TSH) 2017-12-21 07:26:00* Test Item Value Reference Range Interpretation Comments Thyroid Stimulating Hormone (TSH) (test code = 03965-6) 0.197 0.350-4.[address] [facility] CenterVitamin B12 Spovw4071-90-19 07:07:00* Test Item Value Reference Range Interpretation Comments Vitamin B12 Level (test code = 60202-2) 103 213-[address] [facility] CenterFolate2018-03-05 07:07:00* Test Item Value Reference Range Interpretation Comments Folate (test code = 2284-8) 5.9 7.0-15.[address] [facility] CenterIron Creqp2240-76-08 07:06:00* Test Item Value Reference Range Interpretation Comments Iron Level (test code = 2498-4) 19 50-[address] [facility] CenterTotal Iron Binding Davuzwhh6808-73-43 07:06:00* Test Item Value Reference Range Interpretation Comments Total Iron Binding Capacity (test code = 2500-7) 168 261-[address] [facility] CenterPercent Iron Boqidipwcs3128-05-62 07:06:00* Test Item Value Reference Range Interpretation Comments Percent Iron Saturation (test code = 2502-3) 11 15-[address] [facility] CenterTransferrin2018-03-05 07:06:00* Test Item Value Reference Range Interpretation Comments Transferrin (test code = 3034-6) 120 180-[address] [facility] CenterLactic Acid Lofrt1407-18-11 19:46:00* Test Item Value Reference Range Interpretation Comments Lactic Acid Level (test code = Lactic Acid Level) 8.8 4.5- 19.8 [facility] CenterEosinophils % (Manual)2017-12-19 12:04:00 * Test Item Value Reference Range Interpretation Comments Eosinophils % (Manual) (test code = 714-6) 1 0-7 [facility] CenterBedside Urtijjg6140-11-34 16:56:00* Test Item Value Reference Range Interpretation Comments Bedside Glucose (test code = 20486-9) 110 70-120 Meter ID: [id number]. David's Medical CenterBlood Culture 2017-12-15 22:30:00* Test Item Value Reference Range Interpretation Comments Blood Culture (test code = 96150533) NO GROWTH AFTER 5 DAYS, FINAL REPORT [facility] Centerodium Bzgtn4759-70-02 07:10:00* Test Item Value Reference Range Interpretation Comments Sodium Level (test code = 2951-2) 141 136-145 [facility] CenterPotassium Gxwou4729-12-04 07:10:00* Test Item Value Reference Range Interpretation Comments Potassium Level (test code = 2823-3) 3.7 3.5-5.1 [facility] CenterChloride Mxtph2970-46-78 07:10:00* Test Item Value Reference Range Interpretation Comments Chloride Level (test code = 2075-0) 105 98-107 [facility] CenterCarbon Dioxide Dvcje7620-52-39 07:10:00* Test Item Value Reference Range Interpretation Comments Carbon Dioxide Level (test code = 2028-9) 26 22-29 [facility] CenterAnion Qlg6569-20-01 07:10:00* Test Item Value Reference Range Interpretation Comments Anion Gap (test code = 50345-9) 13.7 8-16 [facility] CenterBlood Urea Bgtjmcbe9529-93-71 07:10:00* Test Item Value Reference Range Interpretation Comments Blood Urea Nitrogen (test code = 3094-0) 14 7-26 [facility] CenterCreatinine2018-02-27 07:10:00* Test Item Value Reference Range Interpretation Comments Creatinine (test code = 2160-0) 0.81 0.57-1.11 [facility] CenterBUN/Creatinine Auojq5693-09-91 07:10:00* Test Item Value Reference Range Interpretation Comments BUN/Creatinine Ratio (test code = 3097-3) 17 04-12 [facility] CenterEstimat Glomerular Filtration Rate 2017-12-15 07:10:00* Test Item Value Reference Range Interpretation Comments Estimat Glomerular Filtration Rate (test code = 82654-2) 60- >60 Ranges were taken from the National Kidney Disease Education Program and the [facility] Kidney Foundation literature.Reference ranges:60 or greater: Jostxd05-99 ( for 3 consecutive months): Chronic kidney disease 15 or less: Kidney failureSt. David's Medical CenterGlucose Ycfgv4739-90-66 07:10:00* Test Item Value Reference Range Interpretation Comments Glucose Level (test code = PQE2554) 91 74-118 [facility] CenterCalcium Xelrn3492-28-51 07:10:00* Test Item Value Reference Range Interpretation Comments Calcium Level (test code = 56640-3) 9.0 8.4-10.2 [facility] CenterWhite Blood Dxyzb8415-87-43 06:57:00* Test Item Value Reference Range Interpretation Comments White Blood Count (test code = 6690-2) 7.80 4.8-10.8 [facility] CenterRed Blood Uhsgg6069-21-36 06:57:00* Test Item Value Reference Range Interpretation Comments Red Blood Count (test code = 789-8) 3.44 3.6-5.[address] [facility] CenterHemoglobin2018-02-27 06:57:00* Test Item Value Reference Range Interpretation Comments Hemoglobin (test code = 20387-5) 9.1 12.0-16.[address] [facility] CenterHematocrit2018-02-27 06:57:00* Test Item Value Reference Range Interpretation Comments Hematocrit (test code = 4544-3) 29.1 34.2-44.[address] [facility] CenterMean Corpuscular Hgqruf6087-98-02 06:57:00* Test Item Value Reference Range Interpretation Comments Mean Corpuscular Volume (test code = 787-2) 84.6 81-99 [facility] CenterMean Corpuscular Prahfefllf5379-24-08 06:57:00* Test Item Value Reference Range Interpretation Comments Mean Corpuscular Hemoglobin (test code = 785-6) 26.5 28-[address] [facility] CenterMean Corpuscular Hemoglobin Concent 2017-12-15 06:57:00* Test Item Value Reference Range Interpretation Comments Mean Corpuscular Hemoglobin Concent (test code = 786-4) 31.3 31-35 [facility] CenterRed Cell Distribution Mavld7950-55-47 06:57:00* Test Item Value Reference Range Interpretation Comments Red Cell Distribution Width (test code = 59439-2) 14.6 11.7 -14.[address] [facility] CenterPlatelet Huhly2184-75-84 06:57:00* Test Item Value Reference Range Interpretation Comments Platelet Count (test code = 777-3) 278 140-360 [facility] CenterNeutrophils (%) (Auto)2017-12-15 06:57:00 * Test Item Value Reference Range Interpretation Comments Neutrophils (%) (Auto) (test code = 97398-0) 66.8 38.7-80.0 [facility] CenterLymphocytes (%) (Auto)2017-12-15 06:57:00 * Test Item Value Reference Range Interpretation Comments Lymphocytes (%) (Auto) (test code = 736-9) 16.3 18.0-39.[address] [facility] CenterMonocytes (%) (Auto)2017-12-15 06:57:00* Test Item Value Reference Range Interpretation Comments Monocytes (%) (Auto) (test code = 5905-5) 9.2 4.4-11.3 [facility] CenterEosinophils (%) (Auto)2017-12-15 06:57:00 * Test Item Value Reference Range Interpretation Comments Eosinophils (%) (Auto) (test code = 713-8) 6.3 0.0-6.[address] [facility] CenterBasophils (%) (Auto)2017-12-15 06:57:00* Test Item Value Reference Range Interpretation Comments Basophils (%) (Auto) (test code = 706-2) 0.8 0.0-1.0 [facility] CenterIM GRANULOCYTES %2017-12-15 06:57:00* Test Item Value Reference Range Interpretation Comments IM GRANULOCYTES % (test code = IM GRANULOCYTES %) 0.6 0.0- 1.0 [facility] CenterNeutrophils # (Auto)2017-12-15 06:57:00* Test Item Value Reference Range Interpretation Comments Neutrophils # (Auto) (test code = 751-8) 5.2 2.1-6.9 [facility] [facility] CenterLymphocytes # (Auto)2017-12-15 06:57:00* Test Item Value Reference Range Interpretation Comments Lymphocytes # (Auto) (test code = 09688-1) 1.3 1.0-3.2 [facility] CenterMonocytes # (Auto)2017-12-15 06:57:00* Test Item Value Reference Range Interpretation Comments Monocytes # (Auto) (test code = 742-7) 0.7 0.2-0.8 [facility] CenterEosinophils # (Auto)2017-12-15 06:57:00* Test Item Value Reference Range Interpretation Comments Eosinophils # (Auto) (test code = 711-2) 0.5 0.0-0.[address] [facility] CenterBasophils # (Auto)2017-12-15 06:57:00* Test Item Value Reference Range Interpretation Comments Basophils # (Auto) (test code = 704-7) 0.1 0.0-0.1 [facility] CenterAbsolute Immature Granulocyte (auto 2017-12-15 06:57:00* Test Item Value Reference Range Interpretation Comments Absolute Immature Granulocyte (auto (kayla t code = Absolute Immature Granulocyte (auto) 0.05 0-0.1 [facility] CenterCreatine Kinase WI0341-07-46 06:25:00* Test Item Value Reference Range Interpretation Comments Creatine Kinase MB (test code = 54826-4) 0.80 0-5.0 [facility] CenterTroponin C6442-07-08 06:25:00* Test Item Value Reference Range Interpretation Comments Troponin I (test code = NGB3542) 0.007 0-0.300 [facility] CenterCreatine Kinase BE0760-22-21 06:25:00* Test Item Value Reference Range Interpretation Comments Creatine Kinase MB (test code = 88756-0) 0.80 0-5.0 [facility] CenterTroponin [id number] 06:25:00* Test Item Value Reference Range Interpretation Comments Troponin I (test code = XSH2387) 0.007 0-0.300 [facility] CenterTotal Ibkpjlmux8724-17-73 05:58:00* Test Item Value Reference Range Interpretation Comments Total Bilirubin (test code = 1975-2) 0.7 0.2-1.2 [facility] CenterAspartate Amino Transf (AST/SGOT) 2017-12-11 05:58:00* Test Item Value Reference Range Interpretation Comments Aspartate Amino Transf (AST/SGOT) (test code = Aspartate Amino Transf (AST/SGOT)) 19 5-34 [facility] CenterAlanine Aminotransferase (ALT/SGPT) 2017-12-11 05:58:00* Test Item Value Reference Range Interpretation Comments Alanine Aminotransferase (ALT/SGPT) (test code = 1742-6) 11 0-55 [facility] CenterTotal Fnpobcz3906-50-19 05:58:00* Test Item Value Reference Range Interpretation Comments Total Protein (test code = 2885-2) 6.7 6.5-8.1 [facility] CenterAlbumin2018-02-23 05:58:00* Test Item Value Reference Range Interpretation Comments Albumin (test code = 1751-7) 2.5 3.5-5.[address] [facility] CenterGlobulin2018-02-23 05:58:00* Test Item Value Reference Range Interpretation Comments Globulin (test code = 07642-9) 4.2 2.3-3.[address] [facility] CenterAlbumin/Globulin Ceozh2516-28-89 05:58:00 * Test Item Value Reference Range Interpretation Comments Albumin/Globulin Ratio (test code = 1759-0) 0.6 0.8-2.[address] [facility] CenterAlkaline Yhfomaaykta2666-14-26 05:58:00* Test Item Value Reference Range Interpretation Comments Alkaline Phosphatase (test code = 6768-6) 77 40-150 [facility] CenterCreatine Axitkn4113-83-16 05:58:00* Test Item Value Reference Range Interpretation Comments Creatine Kinase (test code = 2157-6) 54 29-168 [facility] CenterCreatine Exgjpr4932-29-05 05:58:00* Test Item Value Reference Range Interpretation Comments Creatine Kinase (test code = 2157-6) 54 29-168 [facility] CenterMagnesium Atpro5478-74-65 19:38:00* Test Item Value Reference Range Interpretation Comments Magnesium Level (test code = 35257-3) 1.6 1.3-2.1 [facility] CenterUrine XUH8131-05-91 13:07:00* Test Item Value Reference Range Interpretation Comments Urine WBC (test code = 5821-4) 6-10 0-[address] [facility] CenterUrine BFL0148-24-56 13:07:00* Test Item Value Reference Range Interpretation Comments Urine RBC (test code = 62566-6) NONE 0-5 [facility] CenterUrine Idoodayy0544-23-31 13:07:00* Test Item Value Reference Range Interpretation Comments Urine Bacteria (test code = 11018-1) NONE NONE [facility] CenterUrine Epithelial Fjdgv2238-73-64 13:07:00 * Test Item Value Reference Range Interpretation Comments Urine Epithelial Cells (test code = 54522-9) MODERATE NONE [facility] CenterUrine Kvhlw4992-71-33 12:40:00* Test Item Value Reference Range Interpretation Comments Urine Color (test code = 5778-6) YELLOW YELLOW [facility] CenterUrine Iwjaszu0434-98-43 12:40:00* Test Item Value Reference Range Interpretation Comments Urine Clarity (test code = 26050-9) SL CLOUDY CLEAR [facility] CenterUrine Specific Pulhwtd6932-12-95 12:40:00 * Test Item Value Reference Range Interpretation Comments Urine Specific [place] (test code = 5811-5) 1.015 1.010-1.[address] [facility] CenterUrine [id number] 12:40:00* Test Item Value Reference Range Interpretation Comments Urine pH (test code = 11796-7) 6 5-7 [facility] Leukocyte Fgmjcnyw1908-49-81 12:40:00* Test Item Value Reference Range Interpretation Comments Urine Leukocyte Esterase (test code = 5799-2) TRACE NEGATIVE H [facility] Uxdmrid4592-63-13 12:40:00* Test Item Value Reference Range Interpretation Comments Urine Nitrite (test code = 21092-7) NEGATIVE NEGATIVE [facility] Zmdagjk1048-15-60 12:40:00* Test Item Value Reference Range Interpretation Comments Urine Protein (test code = 5804-0) NEGATIVE NEGATIVE [facility] Glucose (UA)2017-12-10 12:40:00* Test Item Value Reference Range Interpretation Comments Urine Glucose (UA) (test code = 2349-9) NEGATIVE NEGATIVE [facility] Hdczvwd9541-57-15 12:40:00* Test Item Value Reference Range Interpretation Comments Urine Ketones (test code = 66300-1) NEGATIVE NEGATIVE [facility] Ufcbnwixmqwj7392-25-69 12:40:00* Test Item Value Reference Range Interpretation Comments Urine Urobilinogen (test code = 58234-3) 4 0.2-[address] [facility] CenterUrine Hxcblllda1508-57-23 12:40:00* Test Item Value Reference Range Interpretation Comments Urine Bilirubin (test code = 1978-6) NEGATIVE NEGATIVE [facility] Tvxle0527-06-40 12:40:00* Test Item Value Reference Range Interpretation Comments Urine Blood (test code = 90699-9) NEGATIVE NEGATIVE [facility] CenterB-Type Natriuretic Tmwfsut5601-90-55 12:31:00* Test Item Value Reference Range Interpretation Comments B-Type Natriuretic Peptide (test code = 26560-3) 91.1 0-100 [facility] CenterB-Type Natriuretic Wkejuqn0074-56-87 12:31:00* Test Item Value Reference Range Interpretation Comments B-Type Natriuretic Peptide (test code = 36069-5) 91.1 0-100 [facility] CenterD-Dimer Quantitative (PE/DVT)2017-12-10 12:24:00* Test Item Value Reference Range Interpretation Comments D-Dimer Quantitative (PE/DVT) (test code = 12474-9) 2.64 0. 00-0.45 H As with all in vitro diagnostic tests, the test results should be interpreted by the physician in conjunction with clinical findings and other test results.Test results are reported in NEW D-dimer units(ug/mLFEU).[facility] CenterD-Dimer Quantitative (PE/DVT)2017-12-10 12:24:00* Test Item Value Reference Range Interpretation Comments D-Dimer Quantitative (PE/DVT) (test code = 60874-3) 2.64 0. 00-0.45 H As with all in vitro diagnostic tests, the test results should be interpreted by the physician in conjunction with clinical findings and other test results.Test results are reported in NEW D-dimer units(ug/mLFEU).[facility] CenterLactic Acid Potnb9826-87-48 12:20:00* Test Item Value Reference Range Interpretation Comments Lactic Acid Level (test code = Lactic Acid Level) 9.1 4.5- 19.8 [facility] CenterProthrombin Zdso8771-74-34 12:15:00* Test Item Value Reference Range Interpretation Comments Prothrombin Time (test code = 5902-2) 15.2 11.9-14.[address] [facility] CenterProthromb Time International Ratio 2017-12-10 12:15:00* Test Item Value Reference Range Interpretation Comments Prothromb Time International Ratio (test code = 6301-6) 1.30 Oral Anticoagulant Therapy INR Values:1. Low Intensity Therapy 1.5 - 2.02 . Moderate Intensity Therapy 2.0 - 3.03. High Intensity Therapy(1) 2.5 - 3. 54. High Intensity Therapy(2) 3.0 - 4.05. Panic Value INR > 5.0 [facility] CenterActivated Partial Thromboplast Time 2017-12-10 12:15:00* Test Item Value Reference Range Interpretation Comments Activated Partial Thromboplast Time (test code = 08140-6) 31.1 23.8-35.5 [facility] CenterBedside Hdtzyiq4874-86-72 12:02:00* Test Item Value Reference Range Interpretation Comments Bedside Glucose (test code = 99054-0) 119 70-120 Meter ID: [id number] Regional Medical Centerodium Level 2017-11-27 07:58:00* Test Item Value Reference Range Interpretation Comments Sodium Level (test code = 2951-2) 138 136-145 [facility] CenterPotassium Qpmeb7942-45-22 07:58:00* Test Item Value Reference Range Interpretation Comments Potassium Level (test code = 2823-3) 3.1 3.5-5.[address] [facility] CenterChloride Jmebd3161-21-63 07:58:00* Test Item Value Reference Range Interpretation Comments Chloride Level (test code = 2075-0) 103 98-107 [facility] CenterCarbon Dioxide Qaenw6887-61-65 07:58:00* Test Item Value Reference Range Interpretation Comments Carbon Dioxide Level (test code = 2028-9) 25 22-29 [facility] CenterAnion Csl1298-25-10 07:58:00* Test Item Value Reference Range Interpretation Comments Anion Gap (test code = 83436-5) 13.1 8-16 [facility] CenterBlood Urea Lsracnwf6264-06-49 07:58:00* Test Item Value Reference Range Interpretation Comments Blood Urea Nitrogen (test code = 3094-0) 10 7-26 [facility] CenterCreatinine2018-02-09 07:58:00* Test Item Value Reference Range Interpretation Comments Creatinine (test code = 2160-0) 0.90 0.57-1.11 [facility] CenterBUN/Creatinine Yjtth1930-60-16 07:58:00* Test Item Value Reference Range Interpretation Comments BUN/Creatinine Ratio (test code = 3097-3) 11 6-25 [facility] CenterEstimat Glomerular Filtration Rate 2017-11-27 07:58:00* Test Item Value Reference Range Interpretation Comments Estimat Glomerular Filtration Rate (test code = 47593-5) 60- >60 Ranges were taken from the National Kidney Disease Education Program and the [facility] Kidney Foundation literature.Reference ranges:60 or greater: Lhedfz94-99 ( for 3 consecutive months): Chronic kidney disease 15 or less: Kidney failureSt. David's Medical CenterGlucose Cjkdz5506-53-64 07:58:00* Test Item Value Reference Range Interpretation Comments Glucose Level (test code = PAY5903) 93 74-118 [facility] CenterCalcium Ydneo9292-65-44 07:58:00* Test Item Value Reference Range Interpretation Comments Calcium Level (test code = 53529-0) 8.1 8.4-10.[address] [facility] CenterWhite Blood Pzkam4721-96-73 07:29:00* Test Item Value Reference Range Interpretation Comments White Blood Count (test code = 6690-2) 6.47 4.8-10.8 [facility] CenterRed Blood Ugbuo3921-11-12 07:29:00* Test Item Value Reference Range Interpretation Comments Red Blood Count (test code = 789-8) 3.58 3.6-5.[address] [facility] CenterHemoglobin2018-02-09 07:29:00* Test Item Value Reference Range Interpretation Comments Hemoglobin (test code = 52772-0) 9.6 12.0-16.[address] [facility] CenterHematocrit2018-02-09 07:29:00* Test Item Value Reference Range Interpretation Comments Hematocrit (test code = 4544-3) 30.1 34.2-44.[address] [facility] CenterMean Corpuscular Ighfsx6371-57-60 07:29:00* Test Item Value Reference Range Interpretation Comments Mean Corpuscular Volume (test code = 787-2) 84.1 81-99 [facility] CenterMean Corpuscular Mkklzedpgd3805-56-26 07:29:00* Test Item Value Reference Range Interpretation Comments Mean Corpuscular Hemoglobin (test code = 785-6) 26.8 28-[address] [facility] CenterMean Corpuscular Hemoglobin Concent 2017-11-27 07:29:00* Test Item Value Reference Range Interpretation Comments Mean Corpuscular Hemoglobin Concent (test code = 786-4) 31.9 31-35 [facility] CenterRed Cell Distribution Wbcey2388-39-99 07:29:00* Test Item Value Reference Range Interpretation Comments Red Cell Distribution Width (test code = 73096-9) 14.1 11.7 -14.4 [facility] CenterPlatelet Ujnsj8409-32-35 07:29:00* Test Item Value Reference Range Interpretation Comments Platelet Count (test code = 777-3) 113 140-[address] [facility] CenterNeutrophils (%) (Auto)2017-11-27 07:29:00 * Test Item Value Reference Range Interpretation Comments Neutrophils (%) (Auto) (test code = 09776-9) 76.9 38.7-80.0 [facility] CenterLymphocytes (%) (Auto)2017-11-27 07:29:00 * Test Item Value Reference Range Interpretation Comments Lymphocytes (%) (Auto) (test code = 736-9) 10.5 18.0-39.[address] [facility] CenterMonocytes (%) (Auto)2017-11-27 07:29:00* Test Item Value Reference Range Interpretation Comments Monocytes (%) (Auto) (test code = 5905-5) 10.8 4.4-11.3 [facility] CenterEosinophils (%) (Auto)2017-11-27 07:29:00 * Test Item Value Reference Range Interpretation Comments Eosinophils (%) (Auto) (test code = 713-8) 1.1 0.0-6.0 [facility] CenterBasophils (%) (Auto)2017-11-27 07:29:00* Test Item Value Reference Range Interpretation Comments Basophils (%) (Auto) (test code = 706-2) 0.2 0.0-1.0 [facility] CenterIM GRANULOCYTES %2017-11-27 07:29:00* Test Item Value Reference Range Interpretation Comments IM GRANULOCYTES % (test code = IM GRANULOCYTES %) 0.5 0.0- 1.0 [facility] CenterNeutrophils # (Auto)2017-11-27 07:29:00* Test Item Value Reference Range Interpretation Comments Neutrophils # (Auto) (test code = 751-8) 5.0 2.1-6.9 [facility] CenterLymphocytes # (Auto)2017-11-27 07:29:00* Test Item Value Reference Range Interpretation Comments Lymphocytes # (Auto) (test code = 85043-0) 0.7 1.0-3.[address] [facility] CenterMonocytes # (Auto)2017-11-27 07:29:00* Test Item Value Reference Range Interpretation Comments Monocytes # (Auto) (test code = 742-7) 0.7 0.2-0.8 [facility] CenterEosinophils # (Auto)2017-11-27 07:29:00* Test Item Value Reference Range Interpretation Comments Eosinophils # (Auto) (test code = 711-2) 0.1 0.0-0.4 [facility] CenterBasophils # (Auto)2017-11-27 07:29:00* Test Item Value Reference Range Interpretation Comments Basophils # (Auto) (test code = 704-7) 0.0 0.0-0.1 [facility] CenterAbsolute Immature Granulocyte (auto 2017-11-27 07:29:00* Test Item Value Reference Range Interpretation Comments Absolute Immature Granulocyte (auto (kayla t code = Absolute Immature Granulocyte (auto) 0.03 0-0.1 [facility] CenterMagnesium Kjuzn2951-13-42 08:05:00* Test Item Value Reference Range Interpretation Comments Magnesium Level (test code = 93539-7) 1.3 1.3-2.1 [facility] CenterPlatelet Uihsahdb1782-25-23 08:35:00* Test Item Value Reference Range Interpretation Comments Platelet Estimate (test code = 45567-2) SLIGHTLY DECREASED [facility] CenterPlatelet Morphology Izhswmb7461-24-27 08:35:00* Test Item Value Reference Range Interpretation Comments Platelet Morphology Comment (test code = 48721-3) FEW LARGE NO CLUMPING SEEN ON SLIDE. 0835 [facility] 08:35:00* Test Item Value Reference Range Interpretation Comments Anisocytosis (test code = 702-1) SLIGHT [facility] CenterRed Cell Morphology Vquuzbk7155-95-67 08:35:00* Test Item Value Reference Range Interpretation Comments Red Cell Morphology Comment (test code = 6742-1) NORMAL [facility] CenterPlatelet Jajwfqve6919-11-23 08:35:00* Test Item Value Reference Range Interpretation Comments Platelet Estimate (test code = 21776-9) SLIGHTLY DECREASED [facility] CenterPlatelet Morphology Ubhglvg4655-46-66 08:35:00* Test Item Value Reference Range Interpretation Comments Platelet Morphology Comment (test code = 59266-7) FEW LARGE NO CLUMPING SEEN ON SLIDE. 0835 [facility]-07 08:35:00* Test Item Value Reference Range Interpretation Comments Anisocytosis (test code = 702-1) SLIGHT [facility] CenterRed Cell Morphology Pfximnv5512-69-74 08:35:00* Test Item Value Reference Range Interpretation Comments Red Cell Morphology Comment (test code = 6742-1) NORMAL [facility] CenterCreatine Kinase IG6966-80-91 16:39:00* Test Item Value Reference Range Interpretation Comments Creatine Kinase MB (test code = 71969-1) 1.20 0.00-5.00 [facility] CenterTroponin [id number] 16:39:00* Test Item Value Reference Range Interpretation Comments Troponin I (test code = 70949-7) 0.009 0-0.300 [facility] CenterCreatine Vwhrsa0766-54-88 16:34:00* Test Item Value Reference Range Interpretation Comments Creatine Kinase (test code = 2157-6) 80 29-168 [facility] CenterTotal Etgwldpaw0254-21-73 08:21:00* Test Item Value Reference Range Interpretation Comments Total Bilirubin (test code = 1975-2) 0.8 0.2-1.2 [facility] CenterAspartate Amino Transf (AST/SGOT) 2017-11-23 08:21:00* Test Item Value Reference Range Interpretation Comments Aspartate Amino Transf (AST/SGOT) (test code = Aspartate Amino Transf (AST/SGOT)) 22 5-34 [facility] CenterAlanine Aminotransferase (ALT/SGPT) 2017-11-23 08:21:00* Test Item Value Reference Range Interpretation Comments Alanine Aminotransferase (ALT/SGPT) (test code = 1742-6) 12 0-55 [facility] CenterTotal Ytoyckp9092-35-42 08:21:00* Test Item Value Reference Range Interpretation Comments Total Protein (test code = 2885-2) 7.4 6.5-8.1 [facility] CenterAlbumin2018-02-05 08:21:00* Test Item Value Reference Range Interpretation Comments Albumin (test code = 1751-7) 3.5 3.5-5.0 [facility] CenterGlobulin2018-02-05 08:21:00* Test Item Value Reference Range Interpretation Comments Globulin (test code = 35904-8) 3.9 2.3-3.[address] [facility] CenterAlbumin/Globulin Wecuo4672-78-10 08:21:00 * Test Item Value Reference Range Interpretation Comments Albumin/Globulin Ratio (test code = 1759-0) 0.9 0.8-2.0 [facility] CenterAlkaline Tgxqibqnciq1978-12-88 08:21:00* Test Item Value Reference Range Interpretation Comments Alkaline Phosphatase (test code = 6768-6) 66 40-150 [facility] CenterLipase2018-02-05 08:21:00* Test Item Value Reference Range Interpretation Comments Lipase (test code = 3040-3) [facility] CenterLipase2018-02-05 08:21:00* Test Item Value Reference Range Interpretation Comments Lipase (test code = 3040-3) [facility] CenterLipase2018-02-05 08:21:00* Test Item Value Reference Range Interpretation Comments Lipase (test code = 3040-3) [facility] CenterUrine SMI1865-31-17 22:16:00* Test Item Value Reference Range Interpretation Comments Urine WBC (test code = 5821-4) 6-10 0-[address] [facility] CenterUrine KHG7759-41-21 22:16:00* Test Item Value Reference Range Interpretation Comments Urine RBC (test code = 55508-1) 6-10 0-[address] [facility] CenterUrine Jumzvvxf4402-96-12 22:16:00* Test Item Value Reference Range Interpretation Comments Urine Bacteria (test code = 49247-8) FEW NONE [facility] CenterUrine Epithelial Lfqgi0638-59-50 22:16:00 * Test Item Value Reference Range Interpretation Comments Urine Epithelial Cells (test code = 34015-6) MODERATE NONE [facility] CenterB-Type Natriuretic Ymyxisr8745-74-68 20:47:00* Test Item Value Reference Range Interpretation Comments B-Type Natriuretic Peptide (test code = 04411-8) 49.2 0-100 [facility] CenterThyroid Stimulating Hormone (TSH) 2017-11-22 20:47:00* Test Item Value Reference Range Interpretation Comments Thyroid Stimulating Hormone (TSH) (test code = 83643-7) 0.622 0.350-4.940 [facility] CenterThyroid Stimulating Hormone (TSH) 2017-11-22 20:47:00* Test Item Value Reference Range Interpretation Comments Thyroid Stimulating Hormone (TSH) (test code = 86849-1) 0.622 0.350-4.940 [facility] CenterProthrombin Erbc6464-26-08 20:34:00* Test Item Value Reference Range Interpretation Comments Prothrombin Time (test code = 5902-2) 13.3 11.9-14.5 [facility] CenterProthromb Time International Ratio 2017-11-22 20:34:00* Test Item Value Reference Range Interpretation Comments Prothromb Time International Ratio (test code = 6301-6) 0.96 Oral Anticoagulant Therapy INR Values:1. Low Intensity Therapy 1.5 - 2.02 . Moderate Intensity Therapy 2.0 - 3.03. High Intensity Therapy(1) 2.5 - 3. 54. High Intensity Therapy(2) 3.0 - 4.05. Panic Value INR > 5.0 [facility] CenterActivated Partial Thromboplast Time 2017-11-22 20:34:00* Test Item Value Reference Range Interpretation Comments Activated Partial Thromboplast Time (test code = 35869-8) 30.0 23.8-35.5 [facility] CenterUrine Euuop1576-06-74 20:34:00* Test Item Value Reference Range Interpretation Comments Urine Color (test code = 5778-6) YELLOW YELLOW [facility] CenterUrine Jnzbckq3824-04-44 20:34:00* Test Item Value Reference Range Interpretation Comments Urine Clarity (test code = 52743-7) HAZY CLEAR [facility] CenterUrine Specific Qambshx9618-63-71 20:34:00 * Test Item Value Reference Range Interpretation Comments Urine Specific [place] (test code = 5811-5) 1.025 1.010-1.[address] [facility] CenterUrine nQ8352-37-91 20:34:00* Test Item Value Reference Range Interpretation Comments Urine pH (test code = 41071-7) 5 5-7 [facility] CenterUrine Leukocyte Fobsbaqb2759-04-05 20:34:00* Test Item Value Reference Range Interpretation Comments Urine Leukocyte Esterase (test code = 5799-2) TRACE NEGATIVE H [facility] CenterUrine Qowlxvc3003-25-35 20:34:00* Test Item Value Reference Range Interpretation Comments Urine Nitrite (test code = 60526-7) NEGATIVE NEGATIVE [facility] CenterUrine Abfxckl5584-07-45 20:34:00* Test Item Value Reference Range Interpretation Comments Urine Protein (test code = 5804-0) NEGATIVE NEGATIVE [facility] CenterUrine Glucose (UA)2017-11-22 20:34:00* Test Item Value Reference Range Interpretation Comments Urine Glucose (UA) (test code = 2349-9) NEGATIVE NEGATIVE [facility] CenterUrine Mxwfgse5021-48-51 20:34:00* Test Item Value Reference Range Interpretation Comments Urine Ketones (test code = 28205-9) NEGATIVE NEGATIVE [facility] CenterUrine Zmsukzdebbgo6529-92-69 20:34:00* Test Item Value Reference Range Interpretation Comments Urine Urobilinogen (test code = 50982-1) 1 0.2-1 [facility] CenterUrine Xdjfqeaij0679-90-92 20:34:00* Test Item Value Reference Range Interpretation Comments Urine Bilirubin (test code = 1978-6) 1+ NEGATIVE H [facility] CenterUrine Zetmw9923-48-89 20:34:00* Test Item Value Reference Range Interpretation Comments Urine Blood (test code = 95305-0) 1+ NEGATIVE H [facility] CenterLactic Acid Enylh0477-87-85 20:28:00* Test Item Value Reference Range Interpretation Comments Lactic Acid Level (test code = Lactic Acid Level) 12.3 4.5- 19.8 [facility] CenterAmylase Zdnzl9400-19-75 20:28:00* Test Item Value Reference Range Interpretation Comments Amylase Level (test code = 1798-8) 47 25-125 [facility] CenterAmylase Lodji0588-69-47 20:28:00* Test Item Value Reference Range Interpretation Comments Amylase Level (test code = 1798-8) 47 25-125 [facility] CenterAmylase Cwqbg9675-38-73 20:28:00* Test Item Value Reference Range Interpretation Comments Amylase Level (test code = 1798-8) 47 25-125 [facility] CenterMODIFIED BA. SWALLOW [facility] [address] [address] Patient Name: COMPA CASAS MR #: [id number] : 1950 Age/Sex: 67/F Req #: [id number] Adm Physician: DWAIN ANDERSON MD Ordered by: BONIFACIO BECERRA MD Report #: [id number] Location: ICU Room/Bed: ICU 194 Procedure: [id number] DX/M ODIFIED BA. SWALLOW Exam Date: 01/05/18 Exam Time: 0 820 REPORT STATUS: Signed PROCEDURE: X-RAY MODIFIED BARIUM SWALLOW COMPARISON: None. INDICATIONS: Not provided. DISCUSSION: F luoroscopic examination was performed in conjunction with speech pathology, d uring swallowing of a variety of thin and thick liquid consistencies. CONCLUSION: No penetration or aspiration. Please see the report from speech pathology for complete details. Dictated by: Dwain Fisher M.D. on 01/05/2018 at 12:04 Electronically approved by: Dwain Fisher M.D. on 01/05/2018 at 12:04 Dictated By: DWAIN FISHER MD 1204 Transcribed By: SOLO on 01/05/18 1204 COPY TO: BONIFACIO BECERRA MD CHEST XRAY LINE PLACEMENT [place] [id number] Patient Name: COMPA CASAS MR #: [id number] : 1950 Age/Sex: 67/F Req #: [id number] Adm Physician: DWAIN ANDERSON MD Ordered by: BONIFACIO BECERRA MD Report #: [id number] Locati on: ICU Room/Bed: ICU [facility] Procedure: [id number] DX/C HEST XRAY LINE PLACEMENT Exam Date: 01/03/18 Exam Ti me: 1300 REPORT STATUS: Signed EXAMINATION: CHEST XRAY LINE PLACEMENT INDICATION: COMPARISON: 01/02/2018 FIN DINGS: AP view TUBES and LINES: Stable tracheostomy and nasogastric tu bes. Left PICC with tip overlying mid SVC. Right PICC in place with tip overly ing superior SVC. LUNGS: Lungs are well inflated. Bilateral airspace opaci ties. PLEURA: No pneumothorax. HEART AND MEDIASTINUM: The cardiac si lhouette is obscured. BONES AND SOFT TISSUES: No acute osseous lesion. Soft tissues are unremarkable. UPPER ABDOMEN: No free air under the arin phragm. IMPRESSION: Bilateral airspace opacities, representing edema and/or pneumonia, slightly increased from prior exam. Possible bilateral pl eural effusions. Lines and tubes as above. Signed by: Dr. Colette Mccullough i, MD on 01/03/2018 1:31 PM Dictated By: COLETTE ESPINAL MD 1331 Transcribed By: PHAM on 8 1331 COPY TO: BONIFACIO BECERRA MD CHEST SINGLE (PORTABLE) [place] [address] Patient Name: COMPA CASAS MR #: [id number] : 1950 Age/Sex: 67/F Req #: [id number] Adm Physician: DWAIN ANDERSON MD Ordered by: ROMAN RENTERIA MD Report #: [id number] Location: ICU Room/Bed: ICU [facility] Procedure: [id number] DX/CHEST SINGLE (PORTABLE) Exam Date: 01/02/18 Exam Time: 04 45 REPORT STATUS: Signed CHEST SINGLE (PORTABLE), 01/02/2018 7:00 AM Technique: CHEST SINGLE (PORTABLE) Comparison: 12/31/2017 Clinical history: Trach Findings: See Impression Impression: Limited portable view with motion artifact, soft tissue attenuation 1. Lines/Tubes: Removal of ET t ube and placement tracheostomy over the thoracic inlet. NG tube tip overlies t he gastric body. 2. Stable enlarged cardiomediastinal silhouette with diffuse pulmonary opacities and left basilar consolidation with air bronchograms. Pos sible left effusion. Signed by: Dr Juanita Marie MD on 01/02/2018 5:40 AM Dictated By: JUANITA MARIE MD 9 Transcribed By: PHAM on 01/02/18539 COPY TO: ROMAN RENTERIA MD CHEST SINGLE (PORTABLE) [place] [address] Patient Name: COMPA CASAS MR #: [id number] : 1950 Age/Sex: 67/F Req #: [id number] Adm Physician: DWAIN ANDERSON MD Ordered by: ROMAN RENTERIA MD Report #: [id number] Location: ICU Room/Bed: ICU [facility] Procedure: [id number] DX/CHEST SINGLE (PORTABLE) Exam Date: 12/31/17 Exam Time: 05 20 REPORT STATUS: Signed CHEST SINGLE (PORTABLE), 12/31/2017 7:00 AM Technique: CHEST SINGLE (PORTABLE) Comparison: 12/27/2017 Clinical history: Shortness of breath Findings: See Impression Impression: Limited portable view with motion artifact, soft tissue attenuation 1. Lines/Tubes: ET tube 2.9 cm above the milly. NG tube tip overlies the gastric body. 2. S table enlarged cardiomediastinal silhouette with diffuse bilateral pulmonary o pacities. Possible underlying pleural fluid. Signed by: Fredy Johnson on 12/31/2017 6:58 AM Dictated By: JUANITA MARIE MD Electronically Si gned By: JUANITA MARIE MD on 12/31/17657 Transcribed By: PHAM on 8 0658 COPY TO: ROMAN RENTERIA MD CHEST SINGLE (PORTABLE) [place] [address] Patient Name: COMPA CASAS MR #: [id number] : 1950 Age/Sex: 67/F Req #: [id number] Adm Physician: DWAIN ANDERSON MD Ordered by: ROMAN RENTERIA MD Report #: [id number] Location: ICU Room/Bed: ICU [facility] Procedure: [id number] DX/CHEST SINGLE (PORTABLE) Exam Date: 12/28/17 Exam Time: 07 40 REPORT STATUS: Signed PROCEDURE: A single AP view of the chest. COMPARISON: [facility], DX, CHEST SINGLE (PORTABLE), 12/28/19 18, 5:03. INDICATIONS: INTUBATED, WITH PNEUMONIA FINDINGS: L neisha/tubes: Endotracheal tube and nasogastric tube present. Right PICC again noted. Lungs: Diffuse pulmonary edema. Pleura: There is no pleural effusion or pneumothorax. Heart and mediastinum: The heart remains enlarge d. Bones: No acute bony abnormality. IMPRESSION: Cardiomegal y with diffuse pulmonary edema not significantly changed. Joesph Saravia D.O. Dictated by: Joesph Saravia D.O. on 12/28/2017 at 8:38 Electroni carol approved by: Joesph Saravia D.O. on 12/28/2017 at 8:38 Dictated By: JOESPH SARAVIA DO 7 COPY TO: ROMAN RENETRIA MD CHEST SINGLE (PORTABLE) [place] [address] Patient Name: COMPA CASAS MR #: [id number] : 1950 Age/Sex: 67/F Req #: [id number] Adm Physician: DWAIN ANDERSON MD Ordered by: BONIFACIO BECERRA MD Report #: [id number] Location: ICU Room/Bed: ICU [facility] Procedure: [id number] DX/C HEST SINGLE (PORTABLE) Exam Date: 12/27/17 Exam Time : 0545 REPORT STATUS: Signed EXAMINATION: CHEST SINGLE (PORTABLE) INDICATION: Intubation. COMPARISON: 12/26/2017 FI NDINGS: TUBES and LINES: Endotracheal tube 3.6 cm above the milly. NG tube h as been removed. Right upper extremity PIC line overlies the proximal SVC. LUNGS: Lungs are well inflated. Stable in appearance of airspace disease and interlobular septi thickening bilaterally PLEURA: Small bilateral pleural effusion HEART AND MEDIASTINUM: Cardiac size is severely enlarged. There are atherosclerotic calcifications within the aorta. BONES AND SOFT TISSUES: No acute osseous lesion. Soft tissues are unremarkable. UPPER ABDOMEN: No free air under the diaphragm. IMPRESSION: Stable inte rstitial edema and airspace disease Signed by: Dr. Sin Reed M.D. on 12/17 7:34 AM Dictated By: SIN MORELOS MD Electronically Chelsea d By: SIN MORELOS MD on 12/27/17733 Transcribed By: PHAM on 12/27 COPY TO: BONIFACIO BECERRA MD ABDOMEN-1VIEW (KUB) [place] [address] Patient Name: COMPA CASAS MR #: [id number] : 1950 Age/Sex: 67/F Req #: [id number] Adm Physician: DWAIN ANDERSON MD Ordered by: DWAIN ANDERSON MD Report #: [id number] Location: ICU Room/Bed: [place] [address] Procedure: [id number] DX/ABDOME N-1VIEW (KUB) Exam Date: 12/27/17 Exam Time: 0640 REPORT STATUS: Signed EXAM: ABDOMEN-1VIEW (KUB) DATE: 12/27/2017 12:00 AM Time stamp on exam: 05:48 AM INDICATION: NG tube placement COMPARISO N: None FINDINGS: LINES/TUBES: Partially visualized NG tube with tip o verlying the region of the gastric body. BOWEL PATTERN: No evidence for o bstruction. SOFT TISSUES: Limited evaluation due to patient's body habitus LUNG BASES: Not included BONES: No acute findings. IMPRESSION: Limited evaluation due to patient's body habitus. NG tube appears to overlie t he region of the gastric body. Signed by: Dr. Sin Reed M.D. on 2017 7:32 AM Dictated By: SIN MORELOS MD 07 Transcribed By: PHAM on 8 0732 COPY TO: DWAIN ANDERSON MD CHEST SINGLE (PORTABLE) [place] [address] Patient Name: COMPA CASAS MR #: [id number] : 1950 Age/Sex: 67/F Req #: [id number] Adm Physician: DWAIN ANDERSON MD Ordered by: BONIFACIO BECERRA MD Report #: [id number] Locati on: ICU Room/Bed: ICU [facility] Procedure: [id number] DX/C HEST SINGLE (PORTABLE) Exam Date: 12/26/17 Exam Time : 1315 REPORT STATUS: Signed EXAMINATION: CHEST SINGLE (PORTABLE) INDICATION: COMPARISON: Same day at 8:51 AM FINDINGS: AP view TUBES and LINES: Endotracheal tube in place with tip approximately 5 cm above milly. Stable nasogastric tube. LUNGS: Limited by body habitus. Lungs are well inflated. Redemonstration of bilateral airspa ce opacities. PLEURA: No pneumothorax. Bilateral pleural effusions. H EART AND MEDIASTINUM: Obscured enlarged cardiac mediastinal silhouette. BONES AND SOFT TISSUES: No acute osseous lesion. Soft tissues are unremark able. UPPER ABDOMEN: No free air under the diaphragm. IMPRESSION: Endotracheal tube with tip approximately 5 cm above milly. Unchanged diffu se bilateral airspace opacities, representing edema and/or pneumonia. Signed by: Dr. Colette Espinal MD on 12/26/2017 1:47 PM Dictated By: COLETTE ESPINAL MD 1347 Transcr ibed By: PHAM on 12/26/171346 COPY TO: BONIFACIO BECERRA MD CHEST SINGLE (PORTABLE) [place] [address] Patient Name: COMPA CASAS MR #: [id number] : 1950 Age/Sex: 67/F Req #: [id number] Adm Physician: DWAIN ANDERSON MD Ordered by: BONIFACIO BECERRA MD Report #: [id number] Location: ICU Room/Bed: ICU [facility] Procedure: [id number] DX/C HEST SINGLE (PORTABLE) Exam Date: 12/26/17 Exam Time : 0855 REPORT STATUS: Signed EXAMINATION: CHEST SINGLE (PORTABLE) INDICATION: COMPARISON: 12/25/2017 FINDINGS: AP view TUBES and LINES: Stable nasogastric tube, endotracheal tube, an d right PICC. LUNGS: Limited by body habitus. Lungs are well inflated. Rede monstration of diffuse bilateral airspace opacities. PLEURA: Bilateral p leural effusions. No visible pneumothorax. HEART AND MEDIASTINUM: Enlarged cardiomediastinal silhouette. BONES AND SOFT TISSUES: No acute osseous lesion. Soft tissues are unremarkable. UPPER ABDOMEN: No free air under the diaphragm. IMPRESSION: Diffuse bilateral airspace opacities, r epresenting edema and/or pneumonia. Enlarged cardiomediastinal silhouette and bilateral pleural effusions. No significant interval change from prior exam. Signed by: Dr. Colette Espinal MD on 12/26/2017 9:28 AM Dictated By: VALERIO ESPINAL MD 7 Tra nscribed By: PHAM on 12/26/17927 COPY TO: BONIFACIO BECERRA MD CHEST SINGLE (PORTABLE) [place] [address] Patient Name: COMPA CASAS MR #: [id number] : 1950 Age/Sex: 67/F Req #: [id number] Adm Physician: DWAIN ANDERSON MD Ordered by: BONIFACIO BECERRA MD Report #: [id number] Location: ICU Room/Bed: ICU [facility] Procedure: [id number] DX/C HEST SINGLE (PORTABLE) Exam Date: 12/25/17 Exam Time : 1540 REPORT STATUS: Signed PROCEDURE: A single AP view of the chest . COMPARISON: 12/24/17 INDICATIONS: SOB FINDINGS: Lines/ tubes: Stable endotracheal and nasogastric tubes. Stable right PICC. Angelique ngs: Limited by body habitus and rotation. Diffuse bilateral air space opaci ties. Pleura: There is no pneumothorax. Small bilateral pleural effusions suspected. Heart and mediastinum: Enlarged cardiomediastinal silhouett e, accentuated by rotation and low lung volumes. Bones: No acute bony abnormality. IMPRESSION: Limited as above. Diffuse bilateral airspace opacities, representing severe pulmonary edema, not significantly changed fr om prior exam. Underlying infiltrate cannot be excluded. Dictated b y: Colette Espinal M.D. on 12/25/2017 at 16:15 Electronically approved by: Colette Espinal M.D. on 12/25/2017 at 16:15 Dictated By: COLETTE ESPINAL MD 1615 Transc ribed By: SOLO on 12/25/17 1615 COPY TO: BONIFACIO BECERRA MD CHEST SINGLE (PORTABLE) [facility] [address] [place] [address] Patient Name: COMPA CASAS MR #: [id number] : 1950 Age/Sex: 67/F Req #: [id number] Adm Physician: DWAIN ANDERSON MD Ordered by: BONIFACIO BECERRA MD Report #: [id number] Location: ICU Room/Bed: ICU [facility] Procedure: [id number] DX/C HEST SINGLE (PORTABLE) Exam Date: 12/24/17 Exam Time : 0800 REPORT STATUS: Signed PROCEDURE: CHEST SINGLE (PORTABLE) ZACARIAS HNIQUE: Portable AP chest INDICATION: Pneumonia COMPARISON: [facility], DX, CHEST SINGLE (PORTABLE), 12/23/2017, 5:35. FINDINGS: See conclusion. CONCLUSION: 1. Enteric tube tip at the gastric bod y. 2. Right PICC terminating in the SVC. 3. Persistent bilateral airspace op acities consistent with pulmonary edema with or without superimposed pneumoni a. No cavitation. 4. Small pleural effusions. 5. Stable cardiomegaly. Dictated by: Van Ruiz M.D. on 12/24/2017 at 8:40 Elect ronically approved by: Van Ruiz M.D. on 12/24/2017 at 8:40 Dictated By: VAN RUIZ MD 9 Transcribed By: SOLO on 12/24/17 0840 COPY TO: BONIFACIO CLAYTON MD CHEST SINGLE (PORTABLE) [facility] [address] [place], [place] [address] Patient Name: COMPA CASAS MR #: [id number] : 1950 Age/Sex: 67/F Req #: [id number] Adm Physician: DWAIN ANDERSON MD Ordered by: BONIFACIO BECERRA MD Report #: [id number] Location: ICU Room/Bed: ICU [facility] Procedure: [id number] DX/C HEST SINGLE (PORTABLE) Exam Date: 12/23/17 Exam Time : 0515 REPORT STATUS: Signed EXAMINATION: CHEST SINGLE (PORTABLE) INDICATION: Ventilation. COMPARISON: 12/22/2017 FI NDINGS: TUBES and LINES: Endotracheal tube 5.2 cm above the milly. NG tube a nd right upper extremity PICC line are stable in good position. LUNGS: L ungs are well inflated. Mild interval improvement in appearance of airspace d isease and interlobular septi thickening bilaterally PLEURA: Small b ilateral pleural effusion HEART AND MEDIASTINUM: Cardiac size is severely enlarged. There are atherosclerotic calcifications within the aorta. BONE S AND SOFT TISSUES: No acute osseous lesion. Soft tissues are unremarkable. UPPER ABDOMEN: No free air under the diaphragm. IMPRESSION: Min imal improvement in interstitial edema and airspace disease Signed by: Krissy Reed M.D. on 12/23/2017 6:44 AM Dictated By: SIN Bansal MD Transc ribed By: PHAM on 12/23/1744 COPY TO: BONIFACIO BECERRA MD CHEST SINGLE (PORTABLE) [place] [address] [place], [place] [address] Patient Name: COMPA CASAS MR #: [id number] : 1950 Age/Sex: 67/F Req #: [id number] Adm Physician: DWAIN ANDERSON MD Ordered by: DWAIN ANDERSON MD Report #: [id number] Location: ICU Room/Bed: ICU [facility] Procedure: [id number] DX/CHEST SINGLE (PORTABLE) Exam Date: 12/22/17 Exam Time: 063 0 REPORT STATUS: Signed PROCEDURE: A single AP view of the chest. COMPARISON: [facility], , CHEST SINGLE (PORTABLE), 8, 16:03. INDICATIONS: INTUBATED FINDINGS: Lines/tubes: Endo tracheal tube, nasogastric tube and right PICC is unchanged. Lungs: Dif fuse pulmonary edema unchanged. Pleura: There is no pleural effusion or p neumothorax. Heart and mediastinum: The heart remains enlarged. Bon es: No acute bony abnormality. IMPRESSION: No significant interval change with diffuse pulmonary edema. Joesph Saravia D.O. Dictated by: Joesph Saravia D.O. on 12/22/2017 at 8:53 Electronically approved by: Joesph Saravia D.O. on 12/22/2017 at 8:53 Dictated By: JOESPH AN DO 2 Transcri bed By: SOLO on 12/22/17852 COPY TO: DWAIN ANDERSON MD CHEST SINGLE (PORTABLE) [place] [address] Patient Name: COMPA CASAS MR #: [id number] : 1950 Age/Sex: 67/F Req #: [id number] Adm Physician: DWAIN ANDERSON MD Ordered by: BONIFACIO BECERRA MD Report #: [id number] Location: ICU Room/Bed: ICU [facility] Procedure: [id number] DX/C HEST SINGLE (PORTABLE) Exam Date: 12/21/17 Exam Time : 1530 REPORT STATUS: Signed PROCEDURE: A single AP view of the chest . COMPARISON: Same day at 5:29 AM INDICATIONS: ETT PLACEMENT FINDINGS: Limited by body habitus. Lines/tubes: Endotracheal tube in pl [place] with tip approximately 3 cm above milly. Nasogastric tube in place with tip extending beyond the inferior margin of the film. Right PICC. Lungs and pleura: Unchanged diffuse airspace opacities. No visible pneumothorax Heart and mediastinum: Enlarged cardiac silhouette. Bones: No acute b brendon abnormality. IMPRESSION: Unchanged diffuse bilateral air space opacities, representing edema and/or pneumonia. Endotracheal tube in place with tip approximately 3 cm above milly. Possible small bilateral pleural eff usions. Dictated by: Colette Espinal M.D. on 12/21/2017 at 16:58 Electronically approved by: Colette Espinal M.D. on 12/21/2017 at 16:58 Dictated By: COLETTE ESPINAL MD 57 Transcribed By: SOLO on 12/21/171657 COPY TO: BONIFACIO CLAYTON MD CHEST SINGLE (PORTABLE) [place] [address] Patient Name: COMPA CASAS MR #: [id number] : 1950 Age/Sex: 67/F Req #: [id number] Adm Physician: WDAIN ANDERSON MD Ordered by: ROMAN RENTERIA MD Report #: [id number] Location: ICU Room/Bed: ICU 194 Procedure: [id number] DX/CHEST SINGLE (PORTABLE) Exam Date: 12/21/17 Exam Time: REPORT STATUS: Signed EXAM: CHEST SINGLE (PORTABLE), AP 1 view IND ICATION: Pneumonia COMPARISON: AP view of the chest December 20, 2017 FINDING S: LINES/TUBES: Endotracheal tube and nasal/orogastric tube and right approach PICC are in stable position given rotated exam. LUNGS: Diffuse bilateral airspace opacities. PLEURA: Indeterminate HEART AND MEDIASTINUM: Inc ompletely evaluated secondary to rotation. BONES AND SOFT TISSUES: No acute findings. IMPRESSION: Exam significantly limited due to rotation. Gross ly stable exam. Signed by: Dr. Sheyla Prather M.D. on 12/21/2017 5: 51 AM Dictated By: SHEYLA PRATHER MD Transcribed By: PHAM on 12/21/1751 COPY TO: ROMAN RENTERIA MD CHEST SINGLE (PORTABLE) [place] [address] Patient Name: COMPA CASAS MR #: [id number] : 1950 Age/Sex: 67/F Req #: [id number] Adm Physician: DWAIN ANDERSON MD Ordered by: BONIFACIO BECERRA MD Report #: [id number] Location: ICU Room/Bed: ICU [facility] Procedure: [id number] DX/C HEST SINGLE (PORTABLE) Exam Date: 12/20/17 Exam Time : 1735 REPORT STATUS: Signed EXAMINATION: CHEST SINGLE (PORTABLE) INDICATION: COMPARISON: Chest radiograph from 018 1724 hours FINDINGS: AP view TUBES and LINES: Suboptimal e valuation of the right PICC which can be seen to the level of the high SVC due to underpenetration. Endotracheal tube is now well visualized. NG/OG tube rem ain stable. Consider repeat x-ray with better penetration for evaluation of tu bes and lines. LUNGS: extensive bilateral interstitial and alveolar airspa ce opacities, unchanged. PLEURA: No pleural effusion or pneumothorax. HEART AND MEDIASTINUM: The cardiomediastinal silhouette is unremarkable.. BONES AND SOFT TISSUES: No acute osseous lesion. Soft tissues are unre markable. UPPER ABDOMEN: No free air under the diaphragm. IMPRESSI ON: Suboptimal evaluation of tubes and lines due to underpenetration. Conside r repeat. Stable extensive bilateral interstitial and alveolar airspace o pacities. Signed by: Dr. Shelby Gaming M.D. on 12/20/2017 5:54 PM Dictated By: SHELBY GAMING MD 53 Transcribed By: PHAM on 12/20/171753 COPY TO: BONIFACIO BECERRA MD CHEST XRAY LINE PLACEMENT [place] [address] Patient Name: COMPA CASAS MR #: [id number] : 1950 Age/Sex: 67/F Req #: [id number] Adm Physician: DWAIN ANDERSON MD Ordered by: BONIFACIO BECERRA MD Report #: [id number] Locati on: ICU Room/Bed: ICU [facility] Procedure: [id number] DX/C HEST XRAY LINE PLACEMENT Exam Date: 12/20/17 Exam Ti me: 1435 REPORT STATUS: Signed EXAMINATION: CHEST XRAY LINE PLACEMENT INDICATION: COMPARISON: Chest radiograph from 01/2018 10:25 AM FINDINGS: AP view TUBES and LINES: Interval placement of a right PICC with tip overlying the cavoatrial junction. Endotra cheal and NG/OG tube remain stable. LUNGS: extensive bilateral interstitia l and alveolar airspace opacities, unchanged. PLEURA: No pleural effusi on or pneumothorax. HEART AND MEDIASTINUM: The cardiomediastinal silhouett e is unremarkable.. BONES AND SOFT TISSUES: No acute osseous lesion. So ft tissues are unremarkable. UPPER ABDOMEN: No free air under the diaphra gm. IMPRESSION: Right PICC with tip overlying the cavoatrial junctio n. Stable extensive bilateral interstitial and alveolar airspace opacities. Signed by: Dr. Shelby Gaming M.D. on 12/20/2017 3:00 PM Dictated By: SHELBY GAMING MD 1500 Transcribed By: PHAM on 12/20/17 1500 COPY TO: BONIFACIO BECERRA MD CHEST SINGLE (PORTABLE) [place] [address] Patient Name: COMPA CASAS MR #: [id number] : 1950 Age/Sex: 67/F Req #: [id number] Adm Physician: DWAIN ANDERSON MD Ordered by: BONIFACIO BECERRA MD Report #: [id number] Location: ICU Room/Bed: ICU [facility] Procedure: [id number] DX/C HEST SINGLE (PORTABLE) Exam Date: 12/20/17 Exam Time : 1035 REPORT STATUS: Signed EXAMINATION: CHEST SINGLE (PORTABLE) INDICATION: COMPARISON: Chest radiograph from [address] chest from 12/19/2017 FINDINGS: AP view TUBES and LINES: Stable endotracheal tube with tip 1.8 cm above the milly. NG/OG no we ll-visualized. LUNGS: Low lung volumes with slightly decreased bilateral a lveolar interstitial airspace opacities. PLEURA: No pleural effusion o r pneumothorax. HEART AND MEDIASTINUM: The cardiomediastinal silhouette is unremarkable.. BONES AND SOFT TISSUES: No acute osseous lesion. Soft t issues are unremarkable. UPPER ABDOMEN: No free air under the diaphragm. IMPRESSION: Slightly improvement in extensive bilateral interstitial and alveolar airspace opacities. Signed by: Dr. Shelby Gaming M.D. on 12/20/2017 10:48 AM Dictated By: SHELBY GAMING MD 104 Anderson scribed By: PHAM on 12/20/17 104 COPY TO: BONIFACIO BECERRA MD CHEST SINGLE (PORTABLE) [place] [address] Patient Name: COMPA CASAS MR #: [id number] : 1950 Age/Sex: 67/F Req #: [id number] Adm Physician: DWAIN ANDERSON MD Ordered by: ROMAN RENTERIA MD Report #: [id number] Location: ICU Room/Bed: ICU [facility] Procedure: [id number] DX/CHEST SINGLE (PORTABLE) Exam Date: 12/20/17 Exam Time: 05 07 REPORT STATUS: Signed EXAMINATION: CHEST SINGLE (PORTABLE) INDICATION: COMPARISON: CT chest from 12/19/2017 and c hest radiograph from 12/19/2017 1719 FINDINGS: AP view TUBES and LINES: Stable endotracheal tube with tip 1.8 cm above the milly. NG/OG c an be followed to the diaphragm. There is no well-visualized due to underpenet ration. LUNGS: Low lung volumes with extensive bilateral alveolar intersti tial airspace opacities. PLEURA: No pleural effusion or pneumothorax. HEART AND MEDIASTINUM: The cardiomediastinal silhouette is unremarkable.. BONES AND SOFT TISSUES: No acute osseous lesion. Soft tissues are unr emarkable. UPPER ABDOMEN: No free air under the diaphragm. IMPRESS ION: Unchanged extensive bilateral interstitial and alveolar airspace opaciti es consistent with ARDS which may relate to sepsis or acute interstitial pne umonia. Severe influenza infection can have a similar appearance. Signed by: Dr. Shelby Gaming M.D. on 12/20/2017 7:38 AM Dictated By: SHELBY GAMING MD 7 Transcribed By: PHAM on 12/20/17737 COPY TO: ROMAN RENTERIA MD CHEST SINGLE (PORTABLE) [place] [address] Patient Name: COMPA CASAS MR #: [id number] : 1950 Age/Sex: 67/F Req #: [id number] Adm Physician: DWAIN ANDERSON MD Ordered by: ROMAN RENTERIA MD Report #: [id number] Location: ICU Room/Bed: ICU [facility] Procedure: [id number] DX/CHEST SINGLE (PORTABLE) Exam Date: 12/19/17 Exam Time: 17 35 REPORT STATUS: Signed EXAMINATION: CHEST SINGLE (PORTABLE) INDICATION: COMPARISON: CT chest from 12/19/2017 FINDINGS: AP view TUBES and LINES: Interval intubation with tip 1.8 cm above the milly. NG/OG tube crossing the diaphragm. Tip not included in the exam. LUNGS: Low lung volumes with extensive bilateral alveolar intersti tial airspace opacities. PLEURA: No pleural effusion or pneumothorax. HEART AND MEDIASTINUM: The cardiomediastinal silhouette is unremarkable.. BONES AND SOFT TISSUES: No acute osseous lesion. Soft tissues are unr emarkable. UPPER ABDOMEN: No free air under the diaphragm. IMPRESS ION: Persistent bilateral interstitial and alveolar airspace opacities as not ed on recent CT chest. Signed by: Dr. Shelby Gaming M.D. on 12/19/2017 6:28 PM Dictated By: SHELBY GAMING MD 27 Transcribed By: PHAM on 12/19/171827 COPY TO: ROMAN RENTERIA MD CT CHEST [place] [address] Patient Name: COMPA CASAS MR #: [id number] : 1950 Age/Sex: 67/F Req #: [id number] Adm Physician: DWAIN ANDERSON MD Ordered by: DWAIN ANDERSON MD Report #: [id number] Location: ICU Room/Bed: ICU [facility] Procedure: [id number] CT/CT FAY ST WO Exam Date: 12/19/17 Exam Time: 1150 REPO RT STATUS: Signed EXAM: CT Chest WITHOUT contrast 12/19/2017 10:57 AM INDICAT ION: COMPARISON: Chest radiograph from 12/16/[address] chest f rom 12/10/2017 TECHNIQUE: Chest was scanned utilizing a multidetector pastora john scanner from the lung apex through the level of the adrenal glands without administration of IV contrast. Absence of intravenous contrast decreases sens itivity for detection of lymphadenopathy and vascular pathology. Coronal and s agittal reformations were obtained. Routine protocol was performed. IV CONTRAST: None COMPLICATIONS: None RADIATION DOSE: Total DLP: 586.2 mGy*cm Estimated effective dose: (DLP x 0.015 x size factor) mSv CTDIvol has been reviewed. It is below the limits set by the Radiatio n Protocol Committee (RPC). FINDINGS: LINES/ TUBES: None. LUNGS AND AIRWAYS: Interval worsening now severe bilateral central and peripheral groundglass opacities with associated septal thickening given the appearance o f increasing pain being mainly in the lower lobes. Airways are normal. P LEURA: Small right pleural effusion remains unchanged. HEART AND MEDIASTINU M: The thyroid gland is normal. No mediastinal, hilar or axillary lymphadenop athy. The heart is normal in size. There is no pericardial effusion. Mild ca lcifications of the mitral annulus. The thoracic aorta is unremarkable. The m ain pulmonary arteries enlarged measuring 3.6 cm in diameter. UPPER ABDOM EN: Unremarkable. BONES: The visualized bony thorax is within normal limits . SOFT TISSUES: Unremarkable. IMPRESSION: Worsening central and per ipheral groundglass opacities with areas of septal thickening with unchanged s mall right pleural effusion. Differential diagnosis includes interval developm ent of acute respiratory distress syndrome, progressive multifocal pneumonia, pulmonary alveolar proteinosis, or acute interstitial pneumonitis. Consid er bronchoscopy with bronchoalveolar lavage and/or biopsy for final diagnosis. Signed by: Dr. Shelby Gaming M.D. on 12/19/2017 1:10 PM Di ctated By: SHELBY GAMING MD 131 Transcribed By: PHAM on 12/19/17 1310 KAIAWHINA Y TO: DWAIN ANDERSON MD VQ LUNG SCAN VENT PERFUSION [place] [address] Patient Name: COMAP CASAS MR #: [id number] : 1950 Age/Sex: 67/F Req #: [id number] Adm Physician: DWAIN ANDERSON MD Ordered by: ROMAN RENTERIA MD Report #: [id number] Location: MED/SURG Room/Bed: [facility] Procedure: [id number] NM/VQ L LIZ SCAN VENT PERFUSION Exam Date: Exam Time: REPORT STATUS: Signed EXAM: VENTILATION PERFUSION LUNG SCAN INDICAT ION: Hypoxia, SOB x 1 week. Surgery on 11/22/2017. Pneumonia. COMPARISON: C hest radiograph 12/11/2017 DISCUSSION: Xenon-133 gas 18 mCi was administered via inhalation. Dynamic images of the lungs in the posterior projection were obtained through single breath and washout phases. Distribution of tracer acti vity is irregular throughout the lungs. Washout is diffusely delayed without e vidence of air trapping. Perfusion images of the lungs in multiple projec tions were obtained following intravenous administration of approximately 6 mC i of Tc-99m MAA. Distribution of tracer is irregular throughout the lungs. The re are no segmental perfusion defects of any size. The contours of the lungs a re well demarcated. The cardiac silhouette is moderately enlarged. IMP RESSION: 1. Scan findings represent a VERY LOW probability for acute pulmo nary embolic disease based on the PIOPED II criteria. 2. Scan findings ar e compatible with diffuse parenchymal and/or obstructive lung disease. Si gned by: Dr. Becky Kerr M.D. on 12/17/2017 4:52 PM Dictated By: BECKY MARK MD 51 Transcribed By : PHAM on 12/17/171651 COPY TO: ROMAN RENTERIA MD CHEST 2 VIEWS [facility] [address] [place] [address] Patient Name: COMPA CASAS MR #: [id number] : 1950 Age/Sex: 67/F Req #: [id number] Adm Physician: DWAIN ANDERSON MD Ordered by: ROMAN RENTERIA MD Report #: [id number] Location: MED/SURG Room/Bed: [facility] Procedure: [id number] DX/CHES T 2 VIEWS Exam Date: 12/16/17 Exam Time: 0900 REPORT STATUS: Signed PROCEDURE: X-RAY CHEST, TWO VIEWS COMPARISON: Chest x -ray 12/11/17. INDICATIONS: PNEUMONIA FINDINGS: LUNGS: There is s table hyperinflation consistent with small airways disease. Patchy airspace o pacities in the right lung have improved but not completely resolved. The pat lelia airspace opacities in the left lung are similar. Diffuse bronchial thicke smith is stable. PLEURA: No effusions or pneumothorax. HEART T MEDIASTINUM: Stable cardiomegaly. Prominent pulmonary arteries are suggesti ve of pulmonary artery hypertension. BONES T SOFT TISSUES: Diffuse dem ineralization. No focal osseous lesions. CONCLUSION: Diminish ing pulmonary infiltrates, either edema or pneumonia. Stable cardiomegaly. Mi ld vascular congestion. Dictated by: Dale Miles M.D. on 12/16/19 at 11:12 Electronically approved by: Dale Miles M.D. on 12/16/19 at 11:12 Dictated By: DALE MILES MD 11 Transcribed By: SOLO on 12/16 111 COPY TO: ROMAN RENTERIA MD CHEST SINGLE (PORTABLE) [place] [address] Patient Name: COMPA CASAS MR #: [id number] : 1950 Age/Sex: 67/F Req #: [id number] Adm Physician: DWAIN ANDERSON MD Ordered by: SIMI DUTTA PIPING DRAFTER Report #: [id number] Locat ion: ICU Room/Bed: ICU 193 Procedure: [id number] DX/ CHEST SINGLE (PORTABLE) Exam Date: 12/11/17 Exam Brennan e: 0540 REPORT STATUS: Signed EXAMINATION: CHEST SINGLE (PORTABLE) INDICATION: Pneumonia. COMPARISON: 11/22/2017 FIN DINGS: TUBES and LINES: None. LUNGS: Diffuse opacification of the right hemithorax with air bronchograms in the right upper lobe compatible with sev ere pneumonia. There is evidence of perihilar interstitial opacities, consis tent with interstitial edema. PLEURA: No pleural effusion or pneumothorax. HEART AND MEDIASTINUM: Cardiac size is moderately enlarged. BONES AND SOFT TISSUES: No acute osseous lesion. Soft tissues are unremarkable. UPPER ABDOMEN: No free air under the diaphragm. IMPRESSION: 1. Right upper lobe predominant pneumonia. 2. Cardiomegaly with mild edema Signed by: Dr. Sin Reed M.D. on 12/11/2017 6:37 AM Dictated By: SIN MORELOS MD 6 COPY TO: NICHOLAS DUTTA PIPING DRAFTER CT CHEST W [facility] [address] [place] [address] Patient Name: COMPA CASAS MR #: [id number] : 1950 Age/Sex: 67/F Req #: [id number] Adm Physician: Ordered by: SIMI DUTTA PIPING DRAFTER Report #: [id number] Location: ER Room/Bed: Procedure: [id number] CT/CT CHEST W Exam Date: 12/10/17 Exam Time: 1530 REPORT STATUS: Signed PROCEDURE: CT scan of the chest WITH intravenous contrast, using PE protoc ol. TECHNIQUE: The chest was scanned utilizing a multidetector helical s canner from the lung apex through the level of the adrenal glands after the I V administration of 78 cc of Isovue 370, with special concentration in the pulmonary arteries. Coronal and sagittal multiplanar reformations were obta ined. COMPARISON: None. INDICATIONS: shortness of breath FINDINGS: Lines/tubes: None. Lungs and Airways: Centrally located small filling defect in a segmental branch of the posterior right lower lobe (seri es 2, images 74-77). Extensive groundglass opacity in the right upper lobe and to a lesser degree right lower lobe and right middle lobe, with intralobu lar septal thickening noted in the right upper lobe (for example series 3, im ages 37 and 66 and sagittal image 34). Mild compressive atelectasis of the right lower lobe. A few scattered groundglass opacities are noted in the later al left upper lobe/lingula (series 3, image 50). Calcified granuloma in the posteromedial right lower lobe (series 2, image 101). No consolidation. Mild increase reticulation in the lower lobes with mild bronchiolectasis (for example, series 3, image 86). Airways are clear, without endobronchial lesion s. Pleura: Small right pleural effusion Heart and mediastinum: Thyro id is unremarkable. Moderate cardiomegaly. Mild atherosclerotic calcification of the aortic bowels. Aorta is non-aneurysmal. Main pulmonary artery is enla rged, measuring 3.4 cm. Lymph nodes: No mediastinal, hilar, or axillary ad enopathy. Abdomen: Limited contrast-enhanced views of the upper abdomen show borderline low attenuation of the right hepatic lobe, which likely reflects mild geographic steatosis. No focal lesions. Cholelithiasis. Visualized sple en is mildly enlarged, measuring 13.0 cm in AP diameter. Visualized pancreas and adrenal glands are unremarkable. Bones: No aggressive lytic lesion. D egenerative disc changes in the thoracic spine. Tissues are grossly unremarka ble. IMPRESSION: 1. centrally located small filling defect in a seg mental branch of the posterior right lower lobe likely represents a small pul monary embolus. No other emboli are identified. 2. Extensive groundglass op acity in the right upper lobe and to a lesser degree right lower lobe and rig ht middle lobe. Differential diagnosis in the acute setting includes pneumoni a (particularly atypical organisms), or diffuse alveolar hemorrhage. In the c hronic setting, interstitial lung disease and cryptogenic organizing pneumoni a are considerations. Unilateral pulmonary edema could also be considered. 3. Moderate cardiomegaly. Enlarged main pulmonary artery suggesting pulmona ry hypertension. 4. Cholelithiasis. 5. Mild splenomegaly. Sam Pichardo M.D. Dictated by: Yasmany Pichardo M.D. on 12/10/2017 at 16 :09 Electronically approved by: Yasmany Pichardo M.D. on 12/10/2017 at 16:09 Dictated By: YASMANY PICHARDO MD 1608 Transcribed By: SOLO on 12/10/17 1608 COPY TO: SIMI DUTTA PIPING DRAFTER CHEST SINGLE (PORTABLE) [place] [address] Patient Name: COMPA CASAS MR #: [id number] : 1950 Age/Sex: 67/F Req #: [id number] Adm Physician: Ordered by: SIMI DUTTA NP Report #: [id number] Location: ER Room/Bed: Procedure: [id number] DX/CHEST SINGLE (PORTABLE) Exam Date: 12/10/17 Exam Time: [address] ATUS: Signed PROCEDURE: A single AP view of the chest. COMPARISON: [facility], DX, CHEST SINGLE (PORTABLE), 11/22/2017, 20:51. I NDICATIONS: SHORT OF BREATH, DYSPNEA, COUGH FINDINGS: Lines/tubes: None. Lungs: Interval development of airspace opacities in the right upp er and right lower lung. Left lung is grossly clear. Pleura: There is no pleural effusion or pneumothorax. Heart and mediastinum: Stable enlarge ment of the cardiac silhouette. Pulmonary vasculature is normal. Bones : No acute bony abnormality. IMPRESSION: 1. findings may represent multifocal pneumonia in the appropriate clinical setting. Unilateral alveolar pulmonary edema is a secondary consideration. Yasmany Pichardo M.D. Dictated by: Yasmany Pichardo M.D. on 12/10/2017 at 11:50 Mago ctronically approved by: Yasmany Pichardo M.D. on 12/10/2017 at 11:50 Dictated By: YASMANY PICHARDO MD 1150 Transcribed By: SOLO on 12/10/17 1150 COPY TO: SIMI DUTTA NP ABDOMEN COMP INCL UPR or DECUB [place] [address] Patient Name: COMPA CASAS MR #: [id number] : 1950 Age/Sex: 67/F Req #: [id number] Adm Physician: ARACELY WHITE MD Ordered by: QUOC HANNAH MD Report #: [id number] Location: MED/SURG3 Room/Bed: [facility] Procedure: [id number] DX/ABDOMEN COMP INCL UPR or DECUB Exam Date: 11/23/17 Exam Time: 2100 REPORT STATUS: Signed EXAM: ABDOMEN COMP INCL UPR or DECUB DATE: 11/23/2017 10:47 AM Time stamp on exam: 2044 hours INDICATION: Small bowel obstruction COMPARISON: CT of the abdomen and pelvis on 2017 FINDINGS: LINES/TUBES: NG tube is in good position with tip overl jagruti the left upper quadrant. BOWEL PATTERN: Persistent distention of mul tiple small bowel loops in the mid and lower abdomen SOFT TISSUES: Vascul ar calcifications present in the left upper quadrant. There are gallstones in the right upper quadrant. LUNG BASES: Clear. BONES: Degenerative verdugo es of the spine IMPRESSION: Stable distention of small bowel loops in thi s patient with known partial small bowel obstruction due to ventral hernia Signed by: Dr. Sin Reed M.D. on 11/23/2017 10:32 PM Dictated By: Ganga MORELOS MD 31 COPY TO: QUOC HANNAH MD CHEST [facility] (PORTABLE) [place] [address] Patient Name: COMPA CASAS MR #: [id number] : 1950 Age/Sex: 67/F Req #: [id number] Adm Physician: Ordered by: MARLENY CHAMBERLAIN PIPING DRAFTER Report #: [id number] Location: ER Room/Bed: Procedure: [id number] DX/CHEST SINGLE (PORTABLE) Exam Date: 11/22/17 Exam Time: 2024 REPORT STA TUS: Signed EXAM: CHEST SINGLE (PORTABLE), AP 1 view ORDER DATE: 11/22/2017 7 :08 PM Time stamp on exam: 2050 hours INDICATION: Vomiting, nausea, stomach p ain COMPARISON: None FINDINGS: LINES/TUBES: None LUNGS: No consoli dations or edema. Mild bibasilar atelectasis. PLEURA: No effusions or pneum othorax. HEART AND MEDIASTINUM: Normal size and contour. BONES AND SOF T TISSUES: No acute findings. IMPRESSION: No acute thoracic abnormality. Signed by: Dr. Sheyla Prather M.D. on 11/22/2017 9:05 PM Di ctated By: SHEYLA PRATHER MD 04 COPY TO: DOTTIE CHAMBERLAIN PIPING DRAFTER CT ABDOMEN/PELVIS [place] [address] Patient Name: COMPA CASAS MR #: [id number] : 1950 Age/Sex: 67/F Req #: [id number] Adm Physician: Ordered by: MARLENY CHAMBERLAIN PIPING DRAFTER Report #: [id number] Location: ER Room/Bed: Procedure: [id number] CT/CT ABDOMEN/PELVIS W Jeremy m Date: 11/22/17 Exam Time: 2100 REPORT STATUS: Signed EXAM: CT ABDOMEN AND PELVIS with IV CONTRAST DATE: 11/22/2017 7:08 PM Time stamp on Exam: 2120 hours INDICATION: Upper abdominal pain COMPARISON: None TECHNIQUE: The abdomen and pelvis were scanned using a multidetector helical scanner. Coronal and sagittal reformations were obtained. Routine pro tocol performed. IV Contrast: 100 cc Isovue-370 Oral Contrast: None CTDI vol has been reviewed. It is below the limits set by the [facility] FINDINGS: LOWER THORAX: Mild right lower lobe scarring wit h traction bronchiectasis and bronchial thickening. LIVER: Hepatomegaly w ith subtle nodular liver contour. BILIARY: Cholelithiasis without gallbladder distention or evidence of cholecystitis. No ductal dilation. SPLEEN: Mil d splenomegaly to 15 cm in length. PANCREAS: No masses ADRENALS: No nodul es KIDNEYS: Symmetric perfusion. No enhancing masses. No hydronephrosis. Simpl e left renal parapelvic cysts. GI TRACT: Mildly distended loops of distal small bowel with air-fluid levels with transition point in an umbilical herni a. Normal appendix. VESSELS: Unremarkable PERITONEUM/RETROPERITONEUM: No free air or fluid LYMPH NODES: No lymphadenopathy REPRODUCTIVE ORGANS: Un remarkable BLADDER: Unremarkable SOFT TISSUES: Bowel containing umbilical hernia with 3 cm fascial defect. Hernia sac measures approximately 12 cm. B ONES: No suspicious bone lesions. IMPRESSION: Partial small bowel obstruc tion with transition point at the umbilical hernia. Hepatosplenomegaly with questionable findings of cirrhosis. Cholelithiasis without evidence of cho lecystitis. Signed by: Dr. Sheyla Prather M.D. on 11/22/2017 10:01 PM Dictated By: SHEYLA PRATHER MD 00 Transcribed By: PHAM on 11/22/172200 COPY TO: MARLENY CHAMBERLAIN NP
[2020-05-25 15:09] LABS: CLARITY,URINE SL CLOUDY (CLEAR); COLOR,URINE YELLOW (YELLOW); KETONES,URINE NEGATIVE (NEGATIVE); LEUKOCYTE ESTERASE ,URINE NEGATIVE (NEGATIVE); NITRITE,URINE NEGATIVE (NEGATIVE); PROTEIN,URINE DIPSTICK NEGATIVE (NEGATIVE); URINE UROBILINOGEN 0.2 mg/dL (0.2 - 1)
[2020-05-25 15:10] LABS: BILIRUBIN,URINE NEGATIVE (NEGATIVE)
[2020-05-25 15:13] LABS: ALBUMIN 3.6 g/dL (3.5-5.0); ALBUMIN/GLOBULIN RATIO 0.8 (0.8-2.0); ANION GAP 15.8 mmol/L (8-16); CALCIUM 9.2 mg/dL (8.4-10.2); CREATININE, SERUM 1.42 mg/dL (0.57-1.11); POTASSIUM 3.8 mmol/L (3.5-5.1)
[2020-05-25 15:21] LABS: BACTERIA,URINE MODERATE /HPF; EPITHELIAL CELLS,URINE FEW /LPF
[2020-05-25 15:22] LABS: CREATINE KINASE MB 1.8 ng/mL (0-5.0)
--- OUTSIDE RECORDS SUMMARY | 2020-05-25 15:54 | XMS REPORT | Continuity of Care Document ---
Author Author [facility] Organization [facility] Address [address] [place] [address] Phone Unavailable Care Team Providers Care Heating Equipment Repairer Name Role Phone DWAIN ANDERSON MD PCP Will DELCID Attphys Unavailable DWAIN ANDERSON Attphys Unavailable ARACELY WHITE Attphys Unavailable DAVIS, BONIFACIO Attphys Unavailable DWAIN ANDERSON Admphys Unavailable ARACELY WHITE Admphys Unavailable Payers Payer Name Policy Type Policy Number Effective Date Expiration Date [facility] [id number] 2019 00:00:00 [facility] Medicare A & B [id number] 2013 00:00:00 [facility] [employer] [id number] 2017 00:00[facility]00 [facility] [id number] 2017 00:00:00 [facility] Problems Condition Name Condition Details Condition Category Status Onset Date Resolution Date Last Treatment Date Treating Clinician Comments Source Small bowel obstruction SBO (small bowel obstruction) Problem Active [facility] Umbilical hernia Umbilical hernia Problem Active [facility] Vomiting Vomiting Problem Active [facility] Atypical pneumonia Atypical pneumonia Problem Active [facility] Pulmonary embolism Pulmonary embolism Problem Active [facility] Healthcare-associated pneumonia HCAP (healthcare-associated pneu monia) Problem Active [facility] Sepsis Sepsis Problem Active [facility] Pneumonia Pneumonia Problem Active [facility] Allergies, Adverse Reactions, Alerts Allergy Name Allergy Type Status Severity Reaction(s) Onset Date Inacti ve Date Treating Clinician Comments Source No Known Allergies DA Active 2019-07-05 00:00:00 [facility] No Known Allergies DA Active U 2013-04-10 00:00:00 [facility] Medications Ordered Medication Name Filled Medication Name Start Date Stop Da te Current Medication? Ordering Clinician Indication Dosage Frequency Signature (SIG) Comments Components Source Chase Mortonkrystal Yes 10 Daily [facility] Famotidine 20 Mg Tab Famotidine 20 Mg Tab Yes 40 Daily [facility] Furosemide 40 Mg Tablet Furosemide 40 Mg Tablet Yes 40 Twice A Day [facility] Metoprolol Tartrate 25 Mg Tablet Metoprolol Tartrate 25 Mg Tablet Yes 25 Daily [facility] Pantoprazole Sodium (Protonix) 40 Mg Tablet. Pantopr azole Sodium (Protonix) 40 Mg Tablet. Yes 40 Daily [facility] Potassium Chloride (K Dur*) 10 Meq Tabcr Potassium Chl oride (K Dur*) 10 Meq Tabcr Yes 10 Daily [facility] Sertraline Hcl (Zoloft) 50 Mg Tablet Sertraline Hcl (Zoloft) 50 Mg Tablet Yes 50 Daily [facility] Fluconazole 100 Mg Tablet, 100 Mg Oral Fluconazole 100 Mg Tablet , 100 Mg Oral 2019-10-18 00:00:00 No 100 Daily [facility] Guaifenesin/Codeine Phosphate (Guaifenes in-Codeine Liquid) 118 Ml Liquid, 5 Ml Oral Guaifenesin/Codeine Phosphate (Guaifenes in-Codeine Liquid) 118 Ml Liquid, 5 Ml Oral 2019-10-11 00:00:00 No 5 Every 4 Hours as needed for Cough [facility] Furosemide (Lasix) 40 Mg Tablet, 20 Mg Oral Furosemide (Lasix) 40 Mg Tablet, 20 Mg Oral 2019-09-10 00:00:00 No 20 Daily [facility] Tramadol Hcl (Ultram) 50 Mg Tablet, 50 Mg Oral Tramado l Hcl (Ultram) 50 Mg Tablet, 50 Mg Oral 2019-07-22 00:00:00 No 50 Every 6 Hours as needed for Moderate Pain (4-6) [facility] Aspirin 81 Mg Tab.chew, Oral Aspirin 81 Mg Tab.chew, Oral 2018-01-06 00:00:00 No Daily [facility] Atenolol 50 Mg Tablet, 100 Oral Atenolol 50 Mg Tablet, 100 Ora l 2018-01-06 00:00:00 No 100 Daily [facility] Metformin Hcl 500 Mg Tablet, 500 Mg Oral Metformin Hcl 500 Mg Tablet, 500 Mg Oral 2018-01-06 00:00:00 No 500 Twice A Day [facility] Oxybutynin Chloride 5 Mg Tablet, 5 Mg Oral Oxybutynin Chloride 5 Mg Tablet, 5 Mg Oral 2018-01-06 00:00:00 No 5 Twice A Day [facility] Sertraline Hcl 50 Mg Tablet, 50 Mg Oral Sertraline Hcl 50 Mg Tablet, 50 Mg Oral 2018-01-06 00:00:00 No 50 Daily [facility] Simvastatin 20 Mg Tablet, 20 Mg Oral Simvastatin 20 Mg Tablet, 2 0 Mg Oral 2018-01-06 00:00:00 No 20 Today At 9:00PM [facility] Enalapril Maleate (Vasotec) 10 Mg Tablet, 20 Oral Gini lapril Maleate (Vasotec) 10 Mg Tablet, 20 Oral 2017-12-16 00:00:00 No 20 D swapnay [facility] Procedures Procedure Date / Time Performed Performing Clinician Sourc e EGD with biopsy 2019-10-14 00:00:00 DEISY JOHNSON [facility] Computed tomography of chest without contrast 2019-10-12 00:00:0 DWAIN OWENS [facility] X-ray of chest, two views 2019-09-08 00:00:00 KANNAN DELCID CH [facility] Computed tomography of chest without contrast 2019-09-08 00:00:0 0 DWAIN ANDERSON [facility] Computed tomography of chest without contrast 2019-07-20 00: 00:00 BONIFACIO BECERRA [facility] X-ray of chest, two views 2019-07-19 00:00:00 KANNAN DELCID [facility] Encounters Start Date/Time End Date/Time Encounter Type Admission Type [facility] Care Department Encounter ID Source 2019-10-11 14:20:00 2019-10-18 13:21:00 Discharged Inpatient 1 DWAIN ANDERSON [facility] [id number] [facility] 2019-09-08 01:11:00 2019-09-10 18:11:00 Discharged Inpatient 1 ARACELY WHITE [facility] [id number] [facility] 2019-07-20 00:36:00 2019-07-25 11:45:00 Discharged Inpatient 1 ARACELY WHITE [facility] [id number] [facility] 2019-06-24 12:26:00 2019-06-24 12:26:00 Registered Clinic [facility] [id number] [facility] 2019-06-12 19:21:00 2019-06-12 20:30:00 Departed Emergency Room [facility] [id number] [facility] 2017-12-10 20:11:00 2018-01-07 10:52:00 Discharged Inpatient ER DWAIN ANDERSON [facility] [id number] [facility] 2017-11-22 23:03:00 2017-11-27 18:47:00 Discharged Inpatient ER ARACELY WHITE [facility] [id number] [facility] Results Test Description Test Time Test Comments Results Result Comments Source CHEST SINGLE (PORTABLE) 2020-05-25 15:03:00 [facility] [address] [address] Patient Name: COMPA CASAS MR #: [id number] : 1950 Age/Sex: 69/F Req #: [id number] Adm Physician: Ordered by: KANNAN DELCID DO Report #: [id number] Location: ER Room/Bed: Procedure: [id number] DX/CHEST SINGLE (PORTABLE) Exam Date: 05/25/20 Exam Time: 1359 REPORT STATUS: Signed EXAMINATION: CHEST SINGLE (PORTABLE) INDICATION: Shortness of breath COMPARISON: Chest CT 10/12/2019 FINDINGS: LINES/TUBES:None LUNGS:The lungs are moderately inflated. Left greater than right lower lung interstitial and air space opacities. PLEURA:No pleural effusion or pneumothorax. MEDIASTINUM:The cardiomediastinal silhouette appears mildly enlarged. Atherosclerotic calcifications of the thoracic aorta. BONES/SOFT TISSUES:No acute osseous injury. ABDOMEN:No free air under the diaphragm. IMPRESSION: Left greater than right lower lung interstitial and airspace opacities may represent pulmonary interstitial and airspace edema. Superimposed pneumonia should be excluded clinically. Signed by: Isabel Fish MD on 05/25/2020 3:04 PM Dictated By: ISABEL FISH MD Electronically Si gned By: ISABEL FISH MD on 05/25/20 150 Transcribed By: PHAM on 05/25/20 1501 COPY TO: KANNAN DELCID DO Bedside Glucose 2019-10-18 11:37:00 Test Item Bedside Glucose (test code = 19499-8) 123 70-120 H Meter ID: [id number] [facility] 2019-10-18 08:10:00* Test Item Value Reference Range Interpretation Comments Hypochromasia (test code = 728-6) SLIGHT [facility] CenterRed Cell Morphology Bjgifyp4329-00-23 08:10:00* Test Item Value Reference Range Interpretation Comments Red Cell Morphology Comment (test code = 6742-1) ABNORMAL [facility] Hprek0585-56-28 06:16:00* Test Item Value Reference Range Interpretation Comments Sodium Level (test code = 2951-2) 138 136-145 [facility] CenterPotassium Nhjdq5599-44-13 06:16:00* Test Item Value Reference Range Interpretation Comments Potassium Level (test code = 2823-3) 3.3 3.5-5.1 L [facility] CenterChloride Lpifr7611-81-10 06:16:00* Test Item Value Reference Range Interpretation Comments Chloride Level (test code = 2075-0) 95 98-107 L [facility] CenterCarbon Dioxide Dbevy6667-95-96 06:16:00* Test Item Value Reference Range Interpretation Comments Carbon Dioxide Level (test code = 2028-9) 32 22-29 H [facility] CenterAnion Mkt8106-70-11 06:16:00* Test Item Value Reference Range Interpretation Comments Anion Gap (test code = 96483-3) 14.3 8-16 [facility] CenterBlood Urea Cqqmeawq8508-76-60 06:16:00* Test Item Value Reference Range Interpretation Comments Blood Urea Nitrogen (test code = 3094-0) 22 7-26 [facility] CenterCreatinine2019-12-31 06:16:00* Test Item Value Reference Range Interpretation Comments Creatinine (test code = 2160-0) 1.38 0.57-1.11 H [facility] CenterBUN/Creatinine Asgoq5957-34-58 06:16:00* Test Item Value Reference Range Interpretation Comments BUN/Creatinine Ratio (test code = 3097-3) 16 6-25 [facility] CenterEstimat Glomerular Filtration Rate 2019-10-18 06:16:00* Test Item Value Reference Range Interpretation Comments Estimat Glomerular Filtration Rate (test code = 738055772) 38 >60 L Ranges were taken from the National Kidney Disease Education Program and the [facility] Foundation literature.Reference ranges:60 or greater: Dizubg28-45 ( for 3 consecutive months): Chronic kidney disease 15 or less: Kidney failureMichael E. DeBakey Department of [facility] Affairs Medical CenterGlucose Giejk1770-92-55 06:16:00* Test Item Value Reference Range Interpretation Comments Glucose Level (test code = BOB3259) 113 74-118 [facility] CenterCalcium Xqljl4891-78-88 06:16:00* Test Item Value Reference Range Interpretation Comments Calcium Level (test code = 95227-1) 9.1 8.4-10.2 [facility] CenterWhite Blood Cgcdg5682-18-70 06:15:00* Test Item Value Reference Range Interpretation Comments White Blood Count (test code = 6690-2) 9.16 4.8-10.8 [facility] CenterRed Blood Wnbka1720-29-78 06:15:00* Test Item Value Reference Range Interpretation Comments Red Blood Count (test code = 789-8) 4.86 3.6-5.1 [facility] CenterHemoglobin2019-12-31 06:15:00* Test Item Value Reference Range Interpretation Comments Hemoglobin (test code = 71608-5) 10.5 12.0-16.0 L [facility] CenterHematocrit2019-12-31 06:15:00* Test Item Value Reference Range Interpretation Comments Hematocrit (test code = 4544-3) 36.5 34.2-44.1 [facility] CenterMean Corpuscular Nynbse8139-44-88 06:15:00* Test Item Value Reference Range Interpretation Comments Mean Corpuscular Volume (test code = 787-2) 75.1 81-99 L [facility] CenterMean Corpuscular Zrnpcugmeo6076-14-99 06:15:00* Test Item Value Reference Range Interpretation Comments Mean Corpuscular Hemoglobin (test code = 785-6) 21.6 28-32 L [facility] CenterMean Corpuscular Hemoglobin Concent 2019-10-18 06:15:00* Test Item Value Reference Range Interpretation Comments Mean Corpuscular Hemoglobin Concent (test code = 786-4) 28.8 31-35 L [facility] CenterRed Cell Distribution Smbqb7393-12-80 06:15:00* Test Item Value Reference Range Interpretation Comments Red Cell Distribution Width (test code = 69724-9) 20.6 11.7 -14.4 H [facility] CenterPlatelet Utucx3928-02-30 06:15:00* Test Item Value Reference Range Interpretation Comments Platelet Count (test code = 777-3) 190 140-360 [facility] CenterNeutrophils (%) (Auto)2019-10-18 06:15:00 * Test Item Value Reference Range Interpretation Comments Neutrophils (%) (Auto) (test code = 62819-4) 72.8 38.7-80.0 [facility] CenterLymphocytes (%) (Auto)2019-10-18 06:15:00 * Test Item Value Reference Range Interpretation Comments Lymphocytes (%) (Auto) (test code = 736-9) 14.3 18.0-39.1 L [facility] CenterMonocytes (%) (Auto)2019-10-18 06:15:00* Test Item Value Reference Range Interpretation Comments Monocytes (%) (Auto) (test code = 5905-5) 8.7 4.4-11.3 [facility] CenterEosinophils (%) (Auto)2019-10-18 06:15:00 * Test Item Value Reference Range Interpretation Comments Eosinophils (%) (Auto) (test code = 713-8) 3.4 0.0-6.0 [facility] CenterBasophils (%) (Auto)2019-10-18 06:15:00* Test Item Value Reference Range Interpretation Comments Basophils (%) (Auto) (test code = 706-2) 0.4 0.0-1.0 [facility] CenterIM GRANULOCYTES %2019-10-18 06:15:00* Test Item Value Reference Range Interpretation Comments IM GRANULOCYTES % (test code = IM GRANULOCYTES %) 0.4 0.0- 1.0 [facility] CenterNeutrophils # (Auto)2019-10-18 06:15:00* Test Item Value Reference Range Interpretation Comments Neutrophils # (Auto) (test code = 751-8) 6.7 2.1-6.9 [facility] CenterLymphocytes # (Auto)2019-10-18 06:15:00* Test Item Value Reference Range Interpretation Comments Lymphocytes # (Auto) (test code = 99533-9) 1.3 1.0-3.2 [facility] CenterMonocytes # (Auto)2019-10-18 06:15:00* Test Item Value Reference Range Interpretation Comments Monocytes # (Auto) (test code = 742-7) 0.8 0.2-0.8 [facility] CenterEosinophils # (Auto)2019-10-18 06:15:00* Test Item Value Reference Range Interpretation Comments Eosinophils # (Auto) (test code = 711-2) 0.3 0.0-0.4 [facility] CenterBasophils # (Auto)2019-10-18 06:15:00* Test Item Value Reference Range Interpretation Comments Basophils # (Auto) (test code = 704-7) 0.0 0.0-0.1 [facility] CenterAbsolute Immature Granulocyte (auto 2019-10-18 06:15:00* Test Item Value Reference Range Interpretation Comments Absolute Immature Granulocyte (auto (kayla t code = Absolute Immature Granulocyte (auto) 0.04 0-0.1 [facility] HospitalMALL BOWEL PEQQOR1552-82-40 14:57:00 [facility] [address] [address] Patient Name: COMPA CASAS MR #: [id number] : 1950 Age/Sex: 69/F Req #: [id number] Adm Physician: DWAIN ANDERSON MD Ordered by: DEISY JOHNSON MD Report #: [id number] Location: MED/SURG3 Room/Bed: [facility] Procedure: [id number] D X/SMALL BOWEL SERIES Exam Date: Exam Time: REPORT STATUS: Signed SMALL BOWEL FOLLOW THROUGH HISTORY: Anemia LEASING SPECIALIST(S): Isabel Fish MD Comparis on: None Procedure: [...] 1500 COPY TO: DEISY JOHNSON MD Blood Zpprhvp5184-72-47 12:27:00* Test Item Value Reference Range Interpretation Comments Blood Culture (test code = 08604209) NO GROWTH AFTER 5 DAYS, FINAL REPORT [facility]2019-12-27 04:04:00* Test Item Value Reference Range Interpretation Comments Folate (test code = 2284-8) 6.1 >3.0 A serum folate concentration of less than 3.1 ng/mL isconsidered to represent cl inical deficiency.Performed at: - [address] [id number] Director: Paul Ann MD, Phone: [phone]. David's Georgetown Hospitaltool Occult Fxtwe9137-64-79 14:23:00* Test Item Value Reference Range Interpretation Comments Stool Occult Blood (test code = 2335-8) NEGATIVE NEGATIVE [facility] CenterCreatine Kinase [id number] 15:01:00* Test Item Value Reference Range Interpretation Comments Creatine Kinase MB (test code = 04697-2) 2.10 0-5.0 [facility] CenterTroponin O2102-45-00 15:01:00* Test Item Value Reference Range Interpretation Comments Troponin I (test code = EGQ5178) < 0.001 0-0.300 [facility] CenterCreatine Oqekij1154-07-74 14:53:00* Test Item Value Reference Range Interpretation Comments Creatine Kinase (test code = 2157-6) 66 29-168 [facility] CenterCT CHEST [id number] 12:04:[address] [address] Patient Name: COMPA CASAS MR #: [id number] : 1950 Age/Sex: 69/F Req #: [id number] Adm Physician: DWAIN ANDERSON MD Ordered by: DWAIN ANDERSON MD Report #: [id number] Location: MED/[facility] Room/Bed: [facility] Procedure: [id number] CT/CT CHEST WO Exam Date: 10/12/19 Exam Time: 1052 REPORT STATUS: Signed EXAM: CT Chest W ITHOUT contrast 10/12/2019 10:04 AM INDICATION: sob [id number] 52 COMPARISON: Chest radiograph 10/11/2019 and [...] Comments Vitamin B12 Level (test code = 79373-8) 316 213-816 [facility] CenterThyroid Stimulating Hormone (TSH) 2019-10-12 11:11:00* Test Item Value Reference Range Interpretation Comments Thyroid Stimulating Hormone (TSH) (test code = 12654-2) 0.363 0.350-4.940 [facility] CenterIron Bvbxb4416-03-94 10:38:00* Test Item Value Reference Range Interpretation Comments Iron Level (test code = 2498-4) 14 50-170 L [facility] CenterTotal Iron Binding Mhntojsv5707-40-90 10:38:00* Test Item Value Reference Range Interpretation Comments Total Iron Binding Capacity (test code = 2500-7) 409 261-4 78 [facility] CenterPercent Iron Whwdoohqut8219-69-99 10:38:00* Test Item Value Reference Range Interpretation Comments Percent Iron Saturation (test code = 2502-3) 3 15-50 L [facility] CenterTransferrin2019-12-25 10:38:00* Test Item Value Reference Range Interpretation Comments Transferrin (test code = 3034-6) 292 180-382 [facility] CenterTotal Asmhmjijh9382-77-67 06:43:00* Test Item Value Reference Range Interpretation Comments Total Bilirubin (test code = 1975-2) 0.5 0.2-1.2 [facility] CenterAspartate Amino Transf (AST/SGOT) 2019-10-12 06:43:00* Test Item Value Reference Range Interpretation Comments Aspartate Amino Transf (AST/SGOT) (test code = Aspartate Amino Transf (AST/SGOT)) 13 5-34 [facility] CenterAlanine Aminotransferase (ALT/SGPT) 2019-10-12 06:43:00* Test Item Value Reference Range Interpretation Comments Alanine Aminotransferase (ALT/SGPT) (test code = 1742-6) 8 0-55 [facility] CenterTotal Qwpekbx3739-60-25 06:43:00* Test Item Value Reference Range Interpretation Comments Total Protein (test code = 2885-2) 6.2 6.5-8.1 L [facility] CenterAlbumin2019-12-25 06:43:00* Test Item Value Reference Range Interpretation Comments Albumin (test code = 1751-7) 2.9 3.5-5.0 L [facility] CenterGlobulin2019-12-25 06:43:00* Test Item Value Reference Range Interpretation Comments Globulin (test code = 73664-7) 3.3 2.3-3.5 [facility] CenterAlbumin/Globulin Msgrr1235-86-82 06:43:00 * Test Item Value Reference Range Interpretation Comments Albumin/Globulin Ratio (test code = 1759-0) 0.9 0.8-2.0 [facility] CenterAlkaline Hpwypbocvzn5105-76-79 06:43:00* Test Item Value Reference Range Interpretation Comments Alkaline Phosphatase (test code = 6768-6) 104 40-150 [facility] CenterInfluenza Virus Types A,B Antigen 2019-10-11 12:59:00* Test Item Value Reference Range Interpretation Comments Influenza Virus Types A,B Antigen (test code = 38799-6) NEGATIVE NEGATIVE [facility] CenterB-Type Natriuretic Xtrzscr8419-80-27 12:57:00* Test Item Value Reference Range Interpretation Comments B-Type Natriuretic Peptide (test code = 19524-8) 130.1 0-100 H [facility] CenterMagnesium Adzzq0748-31-40 12:48:00* Test Item Value Reference Range Interpretation Comments Magnesium Level (test code = 27742-5) 2.0 1.3-2.1 [facility] CenterProthrombin Vxon2092-19-52 12:46:00* Test Item Value Reference Range Interpretation Comments Prothrombin Time (test code = 5902-2) 13.9 11.9-14.5 [facility] CenterProthromb Time International Ratio 2019-10-11 12:46:00* Test Item Value Reference Range Interpretation Comments Prothromb Time International Ratio (test code = 6301-6) 1.02 Oral Anticoagulant Therapy INR Values:1. Low Intensity Therapy 1.5 - 2.02 . Moderate Intensity Therapy 2.0 - 3.03. High Intensity Therapy(1) 2.5 - 3. 54. High Intensity Therapy(2) 3.0 - 4.05. Panic Value INR > 5.0 [facility] CenterActivated Partial Thromboplast Time 2019-10-11 12:46:00* Test Item Value Reference Range Interpretation Comments Activated Partial Thromboplast Time (test code = 12008-5) 29.2 23.8-35.5 [facility] CenterCHEST SINGLE (PORTABLE)2019-10-11 12:26:00 [facility] [address] [place] [address] Patient Name: COMPA CASAS MR #: [id number] : 1950 Age/Sex: 69/F Req #: [id number] Adm Physician: Ordered by: HUMZA FAYE MD Report #: [id number] Location: ER Room/Bed: Procedure: [id number] DX /CHEST SINGLE (PORTABLE) Exam Date: 10/11/19 [...] 1231 COPY TO: HUMZA FAYE MD Iron Slhdy4340-34-27 13:13:00* Test Item Value Reference Range Interpretation Comments Iron Level (test code = 2498-4) 16 50-170 L [facility] CenterTotal Iron Binding Uxzhiopo3758-37-02 13:13:00* Test Item Value Reference Range Interpretation Comments Total Iron Binding Capacity (test code = 2500-7) 517 261-4 78 H [facility] CenterPercent Iron Drsfhhibxs0142-33-55 13:13:00* Test Item Value Reference Range Interpretation Comments Percent Iron Saturation (test code = 2502-3) 3 15-50 L [facility] CenterTransferrin2019-11-23 13:13:00* Test Item Value Reference Range Interpretation Comments Transferrin (test code = 3034-6) 369 180-382 [facility] CenterBedside Njprzrp0327-80-44 08:44:00* Test Item Value Reference Range Interpretation Comments Bedside Glucose (test code = 15604-1) 211 70-120 H Meter ID: [id number] [facility]Blood [facility] 2019-09-10 01:40:00* Test Item Value Reference Range Interpretation Comments Blood Culture (test code = 90840806) NO GROWTH AFTER [address] [facility]odium Djogr3391-59-99 06:19:00* Test Item Value Reference Range Interpretation Comments Sodium Level (test code = 2951-2) 141 136-145 [facility] CenterPotassium Oxfxi1768-38-87 06:19:00* Test Item Value Reference Range Interpretation Comments Potassium Level (test code = 2823-3) 4.5 3.5-5.1 [facility] CenterChloride Rmses3930-04-94 06:19:00* Test Item Value Reference Range Interpretation Comments Chloride Level (test code = 2075-0) 103 98-107 [facility] CenterCarbon Dioxide Artee8411-91-21 06:19:00* Test Item Value Reference Range Interpretation Comments Carbon Dioxide Level (test code = 2028-9) 29 22-29 [facility] CenterAnion Rwn8277-72-15 06:19:00* Test Item Value Reference Range Interpretation Comments Anion Gap (test code = 48819-0) 13.5 8-16 [facility] CenterBlood Urea Aeflffqk5029-25-36 06:19:00* Test Item Value Reference Range Interpretation Comments Blood Urea Nitrogen (test code = 3094-0) 24 7-26 [facility] CenterCreatinine2019-11-22 06:19:00* Test Item Value Reference Range Interpretation Comments Creatinine (test code = 2160-0) 1.22 0.57-1.11 H [facility] CenterBUN/Creatinine Grjrf7788-96-72 06:19:00* Test Item Value Reference Range Interpretation Comments BUN/Creatinine Ratio (test code = 3097-3) 20 6-25 [facility] CenterEstimat Glomerular Filtration Rate 2019-09-09 06:19:00* Test Item Value Reference Range Interpretation Comments Estimat Glomerular Filtration Rate (test code = 962029537) 43 >60 L Ranges were taken from the National Kidney Disease Education Program and the [facility] Kid[facility] Foundation literature.Reference ranges:60 or greater: Vlgotf86-27 ( for 3 consecutive months): Chronic kidney disease 15 or less: Kidney failureMichael E. DeBakey [facility] of [facility] Medical CenterGlucose Vyary2679-09-26 06:19:00* Test Item Value Reference Range Interpretation Comments Glucose Level (test code = BGR2363) 165 74-118 H [facility] CenterCalcium Ltymh4409-68-57 06:19:00* Test Item Value Reference Range Interpretation Comments Calcium Level (test code = 61433-7) 9.1 8.4-10.2 [facility] CenterWhite Blood Apyle3889-22-55 06:01:00* Test Item Value Reference Range Interpretation Comments White Blood Count (test code = 6690-2) 5.75 4.8-10.8 [facility] CenterRed Blood Jhmwk8234-28-74 06:01:00* Test Item Value Reference Range Interpretation Comments Red Blood Count (test code = 789-8) 3.73 3.6-5.1 [facility] CenterHemoglobin2019-11-22 06:01:00* Test Item Value Reference Range Interpretation Comments Hemoglobin (test code = 98690-2) 7.7 12.0-16.0 L [facility] CenterHematocrit2019-11-22 06:01:00* Test Item Value Reference Range Interpretation Comments Hematocrit (test code = 4544-3) 27.8 34.2-44.1 L [facility] CenterMean Corpuscular Hkfbac7466-77-16 06:01:00* Test Item Value Reference Range Interpretation Comments Mean Corpuscular Volume (test code = 787-2) 74.5 81-99 L [facility] CenterMean Corpuscular Jzgjkukcfn5030-23-84 06:01:00* Test Item Value Reference Range Interpretation Comments Mean Corpuscular Hemoglobin (test code = 785-6) 20.6 28-32 L [facility] CenterMean Corpuscular Hemoglobin Concent 2019-09-09 06:01:00* Test Item Value Reference Range Interpretation Comments Mean Corpuscular Hemoglobin Concent (test code = 786-4) 27.7 31-35 L [facility] CenterRed Cell Distribution Tbmgo1628-14-64 06:01:00* Test Item Value Reference Range Interpretation Comments Red Cell Distribution Width (test code = 14867-6) 16.6 11.7 -14.4 H [facility] CenterPlatelet Wudkj9268-08-55 06:01:00* Test Item Value Reference Range Interpretation Comments Platelet Count (test code = 777-3) 170 140-360 [facility] CenterNeutrophils (%) (Auto)2019-09-09 06:01:00 * Test Item Value Reference Range Interpretation Comments Neutrophils (%) (Auto) (test code = 90992-8) 81.2 38.7-80.0 H [facility] CenterLymphocytes (%) (Auto)2019-09-09 06:01:00 * Test Item Value Reference Range Interpretation Comments Lymphocytes (%) (Auto) (test code = 736-9) 10.4 18.0-39.1 L [facility] CenterMonocytes (%) (Auto)2019-09-09 06:01:00* Test Item Value Reference Range Interpretation Comments Monocytes (%) (Auto) (test code = 5905-5) 7.5 4.4-11.3 [facility] CenterEosinophils (%) (Auto)2019-09-09 06:01:00 * Test Item Value Reference Range Interpretation Comments Eosinophils (%) (Auto) (test code = 713-8) 0.0 0.0-6.0 [facility] CenterBasophils (%) (Auto)2019-09-09 06:01:00* Test Item Value Reference Range Interpretation Comments Basophils (%) (Auto) (test code = 706-2) 0.2 0.0-1.0 [facility] CenterIM GRANULOCYTES %2019-09-09 06:01:00* Test Item Value Reference Range Interpretation Comments IM GRANULOCYTES % (test code = IM GRANULOCYTES %) 0.7 0.0- 1.0 [facility] CenterNeutrophils # (Auto)2019-09-09 06:01:00* Test Item Value Reference Range Interpretation Comments Neutrophils # (Auto) (test code = 751-8) 4.7 2.1-6.9 [facility] CenterLymphocytes # (Auto)2019-09-09 06:01:00* Test Item Value Reference Range Interpretation Comments Lymphocytes # (Auto) (test code = 04283-4) 0.6 1.0-3.2 L [facility] CenterMonocytes # (Auto)2019-09-09 06:01:00* Test Item Value Reference Range Interpretation Comments Monocytes # (Auto) (test code = 742-7) 0.4 0.2-0.8 [facility] CenterEosinophils # (Auto)2019-09-09 06:01:00* Test Item Value Reference Range Interpretation Comments Eosinophils # (Auto) (test code = 711-2) 0.0 0.0-0.4 [facility] CenterBasophils # (Auto)2019-09-09 06:01:00* Test Item Value Reference Range Interpretation Comments Basophils # (Auto) (test code = 704-7) 0.0 0.0-0.1 [facility] CenterAbsolute Immature Granulocyte (auto 2019-09-09 06:01:00* Test Item Value Reference Range Interpretation Comments Absolute Immature Granulocyte (auto (kayla t code = Absolute Immature Granulocyte (auto) 0.04 0-0.1 [facility] Medical CenterCT CHEST KI9226-56-49 12:59:00 [place] [address] Patient Name: COMPA CASAS MR #: [id number] : 1950 Age/Sex: 69/F Req #: [id number] Adm Physician: ARACELY WHITE MD Ordered by: DWAIN ANDERSON MD Report #: [id number] Location: MED/SURG2 Room/Bed: [facility] Procedure: [id number] CT/C T CHEST WO Exam Date: 09/08/19 [...] PM Dictated By : ISABEL FISH MD 1304 Trans cribed By: PHAM on 09/08/19 130 COPY TO: DWAIN ANDERSON MD CHEST 2 BXYBW6902-78-53 00:43:00 [place] [address] Patient Name: COMPA CASAS MR #: [id number] : 1950 Age/Sex: 69/F Req #: [id number] Adm Physician: Ordered by: KANNAN DELCID DO Report #: [id number] Location: ER Room/Bed: Procedure: [id number] DX/CHEST 2 VIEWS Exam Date: 09/08/19 Exam [...] TO: KANNAN DELCID DO B- Type Natriuretic Zhndrul0287-81-11 23:46:00* Test Item Value Reference Range Interpretation Comments B-Type Natriuretic Peptide (test code = 52759-9) 125.6 0-100 H [facility] CenterCreatine Kinase YK4316-34-68 23:35:00* Test Item Value Reference Range Interpretation Comments Creatine Kinase MB (test code = 30585-2) 2.00 0-5.0 [facility] CenterTroponin Z0215-00-89 23:35:00* Test Item Value Reference Range Interpretation Comments Troponin I (test code = JLR4015) < 0.001 0-0.300 [facility] CenterTotal Ysyplaeov7136-27-63 23:27:00* Test Item Value Reference Range Interpretation Comments Total Bilirubin (test code = 1975-2) 0.5 0.2-1.2 [facility] CenterAspartate Amino Transf (AST/SGOT) 2019-09-07 23:27:00* Test Item Value Reference Range Interpretation Comments Aspartate Amino Transf (AST/SGOT) (test code = Aspartate Amino Transf (AST/SGOT)) 18 5-34 [facility] CenterAlanine Aminotransferase (ALT/SGPT) 2019-09-07 23:27:00* Test Item Value Reference Range Interpretation Comments Alanine Aminotransferase (ALT/SGPT) (test code = 1742-6) 9 0-55 [facility] CenterTotal Oarnexf8209-49-06 23:27:00* Test Item Value Reference Range Interpretation Comments Total Protein (test code = 2885-2) 7.0 6.5-8.1 [facility] CenterAlbumin2019-11-20 23:27:00* Test Item Value Reference Range Interpretation Comments Albumin (test code = 1751-7) 3.3 3.5-5.0 L [facility] CenterGlobulin2019-11-20 23:27:00* Test Item Value Reference Range Interpretation Comments Globulin (test code = 49875-6) 3.7 2.3-3.5 H [facility] CenterAlbumin/Globulin Oetjm8955-37-90 23:27:00 * Test Item Value Reference Range Interpretation Comments Albumin/Globulin Ratio (test code = 1759-0) 0.9 0.8-2.0 [facility] CenterAlkaline Mhspwydczmf5962-48-53 23:27:00* Test Item Value Reference Range Interpretation Comments Alkaline Phosphatase (test code = 6768-6) 113 40-150 [facility] CenterCreatine Remmuj9925-80-64 23:27:00* Test Item Value Reference Range Interpretation Comments Creatine Kinase (test code = 2157-6) 73 29-168 [facility] CenterBedside Ykysvyz5843-35-06 08:15:00* Test Item Value Reference Range Interpretation Comments Bedside Glucose (test code = 78688-9) 94 70-120 Meter ID: [id number] Orthopedic HospitalBlood Culture 2019-07-24 22:34:00* Test Item Value Reference Range Interpretation Comments Blood Culture (test code = 65069631) NO GROWTH AFTER 5 DAYS, FINAL REPORT [facility]odium Vbwcm8966-01-41 06:49:00* Test Item Value Reference Range Interpretation Comments Sodium Level (test code = 2951-2) 142 136-145 [facility] CenterPotassium Qfwzo8233-16-83 06:49:00* Test Item Value Reference Range Interpretation Comments Potassium Level (test code = 2823-3) 4.1 3.5-5.1 [facility] CenterChloride Vqmvu1808-19-64 06:49:00* Test Item Value Reference Range Interpretation Comments Chloride Level (test code = 2075-0) 102 98-107 [facility] CenterCarbon Dioxide Klfrr7718-76-96 06:49:00* Test Item Value Reference Range Interpretation Comments Carbon Dioxide Level (test code = 2028-9) 31 22-29 H [facility] CenterAnion Wur9552-04-89 06:49:00* Test Item Value Reference Range Interpretation Comments Anion Gap (test code = 84771-5) 13.1 8-16 [facility] CenterBlood Urea Xmazqfqi7882-91-66 06:49:00* Test Item Value Reference Range Interpretation Comments Blood Urea Nitrogen (test code = 3094-0) 30 7-26 H [facility] CenterCreatinine2019-10-06 06:49:00* Test Item Value Reference Range Interpretation Comments Creatinine (test code = 2160-0) 1.24 0.57-1.11 H [facility] CenterBUN/Creatinine Dactm7191-81-64 06:49:00* Test Item Value Reference Range Interpretation Comments BUN/Creatinine Ratio (test code = 3097-3) 24 6-25 [facility] CenterEstimat Glomerular Filtration Rate 2019-07-24 06:49:00* Test Item Value Reference Range Interpretation Comments Estimat Glomerular Filtration Rate (test code = 798645907) 43 >60 L Ranges were taken from the National Kidney Disease Education Program and the [facility] Kidney Foundation literature.Reference ranges:60 or greater: Nopkaq48-70 ( for 3 consecutive months): Chronic kidney disease 15 or less: Kidney failureMichael E. DeBakey [facility] of [facility] Medical CenterGlucose Zqwkq2215-41-43 06:49:00* Test Item Value Reference Range Interpretation Comments Glucose Level (test code = QHY3625) 100 74-118 [facility] CenterCalcium Zjrbn9910-99-98 06:49:00* Test Item Value Reference Range Interpretation Comments Calcium Level (test code = 99940-8) 8.7 8.4-10.2 [facility] CenterWhite Blood Stwds6234-05-57 06:31:00* Test Item Value Reference Range Interpretation Comments White Blood Count (test code = 6690-2) 7.50 4.8-10.8 [facility] CenterRed Blood Kfbus7745-08-23 06:31:00* Test Item Value Reference Range Interpretation Comments Red Blood Count (test code = 789-8) 3.81 3.6-5.1 [facility] CenterHemoglobin2019-10-06 06:31:00* Test Item Value Reference Range Interpretation Comments Hemoglobin (test code = 57917-6) 8.6 12.0-16.0 L [facility] CenterHematocrit2019-10-06 06:31:00* Test Item Value Reference Range Interpretation Comments Hematocrit (test code = 4544-3) 29.9 34.2-44.1 L [facility] CenterMean Corpuscular Rbghrr5669-55-24 06:31:00* Test Item Value Reference Range Interpretation Comments Mean Corpuscular Volume (test code = 787-2) 78.5 81-99 L [facility] CenterMean Corpuscular Yybicnsehv2010-68-32 06:31:00* Test Item Value Reference Range Interpretation Comments Mean Corpuscular Hemoglobin (test code = 785-6) 22.6 28-32 L [facility] CenterMean Corpuscular Hemoglobin Concent 2019-07-24 06:31:00* Test Item Value Reference Range Interpretation Comments Mean Corpuscular Hemoglobin Concent (test code = 786-4) 28.8 31-35 L [facility] CenterRed Cell Distribution Pxsed7296-63-74 06:31:00* Test Item Value Reference Range Interpretation Comments Red Cell Distribution Width (test code = 39152-6) 16.0 11.7 -14.4 H [facility] CenterPlatelet Akkxl8485-71-84 06:31:00* Test Item Value Reference Range Interpretation Comments Platelet Count (test code = 777-3) 230 140-360 [facility] CenterNeutrophils (%) (Auto)2019-07-24 06:31:00 * Test Item Value Reference Range Interpretation Comments Neutrophils (%) (Auto) (test code = 15815-0) 64.0 38.7-80.0 [facility] CenterLymphocytes (%) (Auto)2019-07-24 06:31:00 * Test Item Value Reference Range Interpretation Comments Lymphocytes (%) (Auto) (test code = 736-9) 25.3 18.0-39.1 [facility] CenterMonocytes (%) (Auto)2019-07-24 06:31:00* Test Item Value Reference Range Interpretation Comments Monocytes (%) (Auto) (test code = 5905-5) 9.6 4.4-11.3 [facility] CenterEosinophils (%) (Auto)2019-07-24 06:31:00 * Test Item Value Reference Range Interpretation Comments Eosinophils (%) (Auto) (test code = 713-8) 0.3 0.0-6.0 [facility] CenterBasophils (%) (Auto)2019-07-24 06:31:00* Test Item Value Reference Range Interpretation Comments Basophils (%) (Auto) (test code = 706-2) 0.3 0.0-1.0 [facility] CenterIM GRANULOCYTES %2019-07-24 06:31:00* Test Item Value Reference Range Interpretation Comments IM GRANULOCYTES % (test code = IM GRANULOCYTES %) 0.5 0.0- 1.0 [facility] CenterNeutrophils # (Auto)2019-07-24 06:31:00* Test Item Value Reference Range Interpretation Comments Neutrophils # (Auto) (test code = 751-8) 4.8 2.1-6.9 [facility] CenterLymphocytes # (Auto)2019-07-24 06:31:00* Test Item Value Reference Range Interpretation Comments Lymphocytes # (Auto) (test code = 42439-1) 1.9 1.0-3.2 [facility] CenterMonocytes # (Auto)2019-07-24 06:31:00* Test Item Value Reference Range Interpretation Comments Monocytes # (Auto) (test code = 742-7) 0.7 0.2-0.8 [facility] CenterEosinophils # (Auto)2019-07-24 06:31:00* Test Item Value Reference Range Interpretation Comments Eosinophils # (Auto) (test code = 711-2) 0.0 0.0-0.4 [facility] CenterBasophils # (Auto)2019-07-24 06:31:00* Test Item Value Reference Range Interpretation Comments Basophils # (Auto) (test code = 704-7) 0.0 0.0-0.1 [facility] CenterAbsolute Immature Granulocyte (auto 2019-07-24 06:31:00* Test Item Value Reference Range Interpretation Comments Absolute Immature Granulocyte (auto (kayla t code = Absolute Immature Granulocyte (auto) 0.04 0-0.1 [facility] CenterMODIFIED BA. BQOCHIQ2881-57-81 08:39:00 [place] [address] Patient Name: COMPA CASAS MR #: [id number] : 1950 Age/Sex: 69/F Req #: [id number] Adm Physician: ARACELY WHITE MD Ordered by: Oscar Stuart TINNING MACHINE SET UP OPERATOR Report #: [id number] Location: MED/SURG2 Room/Bed: [facility] [place] Procedure: [id number] DX/MODIFIED BA. SWALLOW Exam Date: 07/21/19 Exam Brennna e: 0810 REPORT STATUS: Signed IA OCEDURE: X-RAY MODIFIED BARIUM SWALLOW COMPARISON: Chest [...] PHAM on 07/22/19839 COPY TO: OSCAR STUART TINNING MACHINE SET UP OPERATOR Platelet Ultixgyi1527-13-04 11:57:00* Test Item Value Reference Range Interpretation Comments Platelet Estimate (test code = 19938-2) MODERATELY DECREASED [facility] CenterPlatelet Morphology Oukxqsa6723-27-04 11:57:00* Test Item Value Reference Range Interpretation Comments Platelet Morphology Comment (test code = 00638-6) FEW LARGE [facility] Medical CenterPlatelet Yyhpwckx7067-91-47 11:57:00* Test Item Value Reference Range Interpretation Comments Platelet Estimate (test code = 72946-4) MODERATELY DECREASED [facility] CenterPlatelet Morphology Rosflsd7507-54-31 11:57:00* Test Item Value Reference Range Interpretation Comments Platelet Morphology Comment (test code = 60394-5) FEW LARGE [facility] Medical CenterPlatelet Hwyxbwke9885-89-47 11:57:00* Test Item Value Reference Range Interpretation Comments Platelet Estimate (test code = 94571-2) MODERATELY DECREASED [facility] CenterPlatelet Morphology Gluzwgi3804-20-58 11:57:00* Test Item Value Reference Range Interpretation Comments Platelet Morphology Comment (test code = 03080-3) FEW LARGE [facility] CenterTriglycerides Mimni4882-38-10 06:00:00* Test Item Value Reference Range Interpretation Comments Triglycerides Level (test code = 2571-8) 73 0-149 [facility] CenterCholesterol Wbjaz9856-53-75 06:00:00* Test Item Value Reference Range Interpretation Comments Cholesterol Level (test code = 2093-3) 135 0-199 Less than 200 mg/dL Low Twmt762 - 239 mg/dL Borderline Yiwt732 m g/dl and greater High Risk [facility] CenterLDL Enihhtpwrwe3480-48-53 06:00:00* Test Item Value Reference Range Interpretation Comments LDL Cholesterol (test code = 2089-1) 85 60-130 [facility] CenterHDL Obqwlmjckfq7176-27-58 06:00:00* Test Item Value Reference Range Interpretation Comments HDL Cholesterol (test code = 2085-9) 35 40-60 L [facility] CenterCholesterol/HDL Boyrt0364-00-71 06:00:00 * Test Item Value Reference Range Interpretation Comments Cholesterol/HDL Ratio (test code = 9830-1) 3.9 3.0-3.6 H [facility] CenterTriglycerides Vrtdw9544-94-93 06:00:00* Test Item Value Reference Range Interpretation Comments Triglycerides Level (test code = 2571-8) 73 0-149 [facility] CenterCholesterol Eqzyg0899-94-77 06:00:00* Test Item Value Reference Range Interpretation Comments Cholesterol Level (test code = 2093-3) 135 0-199 Less than 200 mg/dL Low Ynjd142 - 239 mg/dL Borderline Dcmj374 m g/dl and greater High Risk [facility] CenterLDL Lzhkuxfhwnm0099-76-32 06:00:00* Test Item Value Reference Range Interpretation Comments LDL Cholesterol (test code = 2089-1) 85 60-130 [facility] Ysezfysmity7916-32-58 06:00:00* Test Item Value Reference Range Interpretation Comments HDL Cholesterol (test code = 2085-9) 35 40-60 L [facility] CenterCholesterol/HDL Pdtvs3938-50-60 06:00:00 * Test Item Value Reference Range Interpretation Comments Cholesterol/HDL Ratio (test code = 9830-1) 3.9 3.0-3.6 H [facility] CenterTriglycerides Evnbb4538-26-86 06:00:00* Test Item Value Reference Range Interpretation Comments Triglycerides Level (test code = 2571-8) 73 0-149 [facility] CenterCholesterol Eqmkq1520-90-23 06:00:00* Test Item Value Reference Range Interpretation Comments Cholesterol Level (test code = 2093-3) 135 0-199 Less than 200 mg/dL Low Niul566 - 239 mg/dL Borderline Toca346 m g/dl and greater High Risk [facility] CenterLDL Zqnurylgbtu1335-05-20 06:00:00* Test Item Value Reference Range Interpretation Comments LDL Cholesterol (test code = 2089-1) 85 60-130 [facility] Kqepnuvzlat9368-58-64 06:00:00* Test Item Value Reference Range Interpretation Comments HDL Cholesterol (test code = 2085-9) 35 40-60 L [facility] CenterCh[facility]/HDL Cxeaq0098-01-21 06:00:00 * Test Item Value Reference Range Interpretation Comments Cholesterol/HDL Ratio (test code = 9830-1) 3.9 3.0-3.6 H [facility] CenterB-Type Natriuretic Dpatkdt5575-96-18 04:27:00* Test Item Value Reference Range Interpretation Comments B-Type Natriuretic Peptide (test code = 94572-7) 180.5 0-100 H [facility] CenterHemoglobin A1c Iujwcns6214-48-17 04:14:00 * Test Item Value Reference Range Interpretation Comments Hemoglobin A1c Percent (test code = Hemoglobin A1c Percent) 5.7 4.0-7.0 [facility] CenterHemoglobin A1c Tjahkpc9515-81-07 04:14:00 * Test Item Value Reference Range Interpretation Comments Hemoglobin A1c Percent (test code = Hemoglobin A1c Percent) 5.7 4.0-7.0 [facility] CenterHemoglobin A1c Ckpqefo3992-14-87 04:14:00 * Test Item Value Reference Range Interpretation Comments Hemoglobin A1c Percent (test code = Hemoglobin A1c Percent) 5.7 4.0-7.0 [facility] CenterCT CHEST GQ2501-38-83 18:49:[address] [place] [address] Patient Name: COMPA CASAS MR #: [id number] : 1950 Age/Sex: 69/F Req #: [id number] Adm Physician: ARACELY WHITE MD Ordered by: BONIFACIO BECERRA MD Report #: [id number] Location: [facility] Room/Bed: [facility] [place] Procedure: [id number] CT/CT CHEST WO Exam Date: 07/20/19 Exam [...] setting. 2. Cholelithiasis. Signed by: Dr. Paul Jackson M.D. on 07/20/2019 7:02 PM Dictated By: JOANN JACKSON MD, MD 01 Transcribed By: PHAM on 07/20/191901 COPY TO: BONIFACIO BECERRA MD Creatine Kinase HE7716-40-13 15:20:00* Test Item Value Reference Range Interpretation Comments Creatine Kinase MB (test code = 89117-7) 6.30 0-5.0 H [facility] CenterTroponin E0495-63-85 15:20:00* Test Item Value Reference Range Interpretation Comments Troponin I (test code = THT5710) 0.004 0-0.300 [facility] CenterCreatine Founxn4733-34-29 15:13:00* Test Item Value Reference Range Interpretation Comments Creatine Kinase (test code = 2157-6) 455 29-168 [facility] LDUSZ5937-46-05 00:01:00 [facility] [address] [address] Patient Name: COMPA CASAS MR #: [id number] : 1950 Age/Sex: 69/F Req #: [id number] Adm Physician: Ordered by: KANNAN LLANOS MD Report #: [id number] Location: ER Room/Bed: Procedure: [id number] DX/CHEST 2 VIEWS Exam Date: 07/19/19 Exam [...] DO 0004 T ranscribed By: PHAM on 07/20/193 COPY TO: KANNAN LLANOS MD Urine [id number] 23:55:00* Test Item Value Reference Range Interpretation Comments Urine WBC (test code = 5821-4) 0-5 0-5 [facility] CenterUrine UVS0397-05-37 23:55:00* Test Item Value Reference Range Interpretation Comments Urine RBC (test code = 82948-3) 0-5 0-5 [facility] CenterUrine Jfkhcuzn9670-44-31 23:55:00* Test Item Value Reference Range Interpretation Comments Urine Bacteria (test code = 09075-0) RARE NONE [facility] CenterUrine Epithelial Etlzu1253-29-97 23:55:00 * Test Item Value Reference Range Interpretation Comments Urine Epithelial Cells (test code = 20949-7) RARE NONE [facility] CenterUrine TOV1615-56-22 23:55:00* Test Item Value Reference Range Interpretation Comments Urine WBC (test code = 5821-4) 0-5 0-5 [facility] CenterUrine FCX0453-30-55 23:55:00* Test Item Value Reference Range Interpretation Comments Urine RBC (test code = 15146-4) 0-5 0-5 [facility] CenterUrine Fumorsdy8087-22-94 23:55:00* Test Item Value Reference Range Interpretation Comments Urine Bacteria (test code = 99938-6) RARE NONE [facility] CenterUrine Epithelial Agfge8092-88-29 23:55:00 * Test Item Value Reference Range Interpretation Comments Urine Epithelial Cells (test code = 76915-5) RARE NONE [facility] CenterUrine WEZ1029-97-66 23:55:00* Test Item Value Reference Range Interpretation Comments Urine WBC (test code = 5821-4) 0-5 0-5 [facility] CenterUrine CBZ6482-40-81 23:55:00* Test Item Value Reference Range Interpretation Comments Urine RBC (test code = 14133-0) 0-5 0-5 [facility] CenterUrine Msiwcsey8747-73-58 23:55:00* Test Item Value Reference Range Interpretation Comments Urine Bacteria (test code = 45608-1) RARE NONE [facility] CenterUrine Epithelial Amlnk7640-17-25 23:55:00 * Test Item Value Reference Range Interpretation Comments Urine Epithelial Cells (test code = 32387-5) RARE NONE [facility] CenterUrine Vazjz4628-92-66 23:47:00* Test Item Value Reference Range Interpretation Comments Urine Color (test code = 5778-6) YELLOW YELLOW [facility] CenterUrine Qrfsxsp5776-02-98 23:47:00* Test Item Value Reference Range Interpretation Comments Urine Clarity (test code = 50382-9) CLEAR CLEAR [facility] CenterUrine Specific Tciiyte1687-18-10 23:47:00 * Test Item Value Reference Range Interpretation Comments Urine Specific [place] (test code = 5811-5) 1.020 1.010-1.02 5 [facility] CenterUrine gS0515-74-21 23:47:00* Test Item Value Reference Range Interpretation Comments Urine pH (test code = 26185-7) 6 5-7 [facility] CenterUrine Leukocyte Gturowmy9000-30-06 23:47:00* Test Item Value Reference Range Interpretation Comments Urine Leukocyte Esterase (test code = 69439-8) NEGATIVE NEGATIV E [facility] CenterUrine Oqsaxwp7511-70-00 23:47:00* Test Item Value Reference Range Interpretation Comments Urine Nitrite (test code = 82865-0) NEGATIVE NEGATIVE [facility] CenterUrine Hlrmqxg3978-66-61 23:47:00* Test Item Value Reference Range Interpretation Comments Urine Protein (test code = 73963-1) NEGATIVE NEGATIVE [facility] CenterUrine Glucose (UA)2019-07-19 23:47:00* Test Item Value Reference Range Interpretation Comments Urine Glucose (UA) (test code = 09579-2) NEGATIVE NEGATIVE [facility] CenterUrine Lrbtpma2233-25-99 23:47:00* Test Item Value Reference Range Interpretation Comments Urine Ketones (test code = 48512-7) NEGATIVE NEGATIVE [facility] CenterUrine Cneiboamkvlo0836-82-60 23:47:00* Test Item Value Reference Range Interpretation Comments Urine Urobilinogen (test code = 03301-7) 1 0.2-1 [facility] CenterUrine Tdtzagqwj1197-23-37 23:47:00* Test Item Value Reference Range Interpretation Comments Urine Bilirubin (test code = 1977-8) NEGATIVE NEGATIVE [facility] CenterUrine Axdix3181-71-57 23:47:00* Test Item Value Reference Range Interpretation Comments Urine Blood (test code = 40050-9) NEGATIVE NEGATIVE [facility] CenterUrine Xcyih3080-44-12 23:47:00* Test Item Value Reference Range Interpretation Comments Urine Color (test code = 5778-6) YELLOW YELLOW [facility] CenterUrine Cmlueyc7098-18-28 23:47:00* Test Item Value Reference Range Interpretation Comments Urine Clarity (test code = 40580-5) CLEAR CLEAR [facility] CenterUrine Specific Qpcckpd1477-16-79 23:47:00 * Test Item Value Reference Range Interpretation Comments Urine Specific [place] (test code = 5811-5) 1.020 1.010-1.02 5 [facility] CenterUrine yH2231-01-15 23:47:00* Test Item Value Reference Range Interpretation Comments Urine pH (test code = 06856-3) 6 5-7 [facility] CenterUrine Leukocyte Wgqhvqdg6639-78-45 23:47:00* Test Item Value Reference Range Interpretation Comments Urine Leukocyte Esterase (test code = 08336-3) NEGATIVE NEGATIV E [facility] CenterUrine Qjnqzne8661-25-00 23:47:00* Test Item Value Reference Range Interpretation Comments Urine Nitrite (test code = 11881-1) NEGATIVE NEGATIVE [facility] CenterUrine Fwuhrpo6999-15-76 23:47:00* Test Item Value Reference Range Interpretation Comments Urine Protein (test code = 73262-1) NEGATIVE NEGATIVE [facility] CenterUrine Glucose (UA)2019-07-19 23:47:00* Test Item Value Reference Range Interpretation Comments Urine Glucose (UA) (test code = 83934-6) NEGATIVE NEGATIVE [facility] CenterUrine Wwttmly5433-77-06 23:47:00* Test Item Value Reference Range Interpretation Comments Urine Ketones (test code = 67206-3) NEGATIVE NEGATIVE [facility] CenterUrine Ylnhbtsvvrst4597-29-54 23:47:00* Test Item Value Reference Range Interpretation Comments Urine Urobilinogen (test code = 58637-7) 1 0.2-1 [facility] CenterUrine Sumwkdlxd1581-11-71 23:47:00* Test Item Value Reference Range Interpretation Comments Urine Bilirubin (test code = 1977-8) NEGATIVE NEGATIVE [facility] CenterUrine Rlzxg6108-05-89 23:47:00* Test Item Value Reference Range Interpretation Comments Urine Blood (test code = 27669-3) NEGATIVE NEGATIVE [facility] CenterUrine Bwwzq1938-65-11 23:47:00* Test Item Value Reference Range Interpretation Comments Urine Color (test code = 5778-6) YELLOW YELLOW [facility] CenterUrine Wllembd6157-33-88 23:47:00* Test Item Value Reference Range Interpretation Comments Urine Clarity (test code = 98488-4) CLEAR CLEAR [facility] CenterUrine Specific Bttvtom5262-05-56 23:47:00 * Test Item Value Reference Range Interpretation Comments Urine Specific [place] (test code = 5811-5) 1.020 1.010-1.02 5 [facility] CenterUrine wX7746-01-81 23:47:00* Test Item Value Reference Range Interpretation Comments Urine pH (test code = 15090-7) 6 5-7 [facility] CenterUrine Leukocyte Zyjromzb6797-94-31 23:47:00* Test Item Value Reference Range Interpretation Comments Urine Leukocyte Esterase (test code = 32610-9) NEGATIVE NEGATIV E [facility] CenterUrine Sswloqi9417-93-07 23:47:00* Test Item Value Reference Range Interpretation Comments Urine Nitrite (test code = 20555-6) NEGATIVE NEGATIVE [facility] CenterUrine Qjovicz1666-44-69 23:47:00* Test Item Value Reference Range Interpretation Comments Urine Protein (test code = 82772-2) NEGATIVE NEGATIVE [facility] CenterUrine Glucose (UA)2019-07-19 23:47:00* Test Item Value Reference Range Interpretation Comments Urine Glucose (UA) (test code = 04650-3) NEGATIVE NEGATIVE [facility] CenterUrine Cfvkwbc4418-94-99 23:47:00* Test Item Value Reference Range Interpretation Comments Urine Ketones (test code = 29837-7) NEGATIVE NEGATIVE [facility] CenterUrine Kzdmxrneqkpt1962-15-41 23:47:00* Test Item Value Reference Range Interpretation Comments Urine Urobilinogen (test code = 89864-2) 1 0.2-1 [facility] CenterUrine Drailbnct6602-42-55 23:47:00* Test Item Value Reference Range Interpretation Comments Urine Bilirubin (test code = 1977-8) NEGATIVE NEGATIVE [facility] CenterUrine Gpiyc4096-73-74 23:47:00* Test Item Value Reference Range Interpretation Comments Urine Blood (test code = 83218-1) NEGATIVE NEGATIVE [facility] CenterInfluenza Virus Types A,B Antigen 2019-07-19 23:46:00* Test Item Value Reference Range Interpretation Comments Influenza Virus Types A,B Antigen (test code = 62933-8) NEGATIVE NEGATIVE [facility] CenterInfluenza Virus Types A,B Antigen 2019-07-19 23:46:00* Test Item Value Reference Range Interpretation Comments Influenza Virus Types A,B Antigen (test code = 40067-4) NEGATIVE NEGATIVE [facility] CenterLactic Acid Fdbkm7717-01-85 23:15:00* Test Item Value Reference Range Interpretation Comments Lactic Acid Level (test code = Lactic Acid Level) 6.8 4.5- 19.8 [facility] CenterTotal Zsnapioaw9934-30-70 23:15:00* Test Item Value Reference Range Interpretation Comments Total Bilirubin (test code = 1975-2) 0.6 0.2-1.2 [facility] Medical CenterAspartate Amino Transf (AST/SGOT) 2019-07-19 23:15:00* Test Item Value Reference Range Interpretation Comments Aspartate Amino Transf (AST/SGOT) (test code = Aspartate Amino Transf (AST/SGOT)) 22 5-34 [facility] CenterAlanine Aminotransferase (ALT/SGPT) 2019-07-19 23:15:00* Test Item Value Reference Range Interpretation Comments Alanine Aminotransferase (ALT/SGPT) (test code = 1742-6) 9 0-55 [facility] CenterTotal Cgfgzhg8721-33-33 23:15:00* Test Item Value Reference Range Interpretation Comments Total Protein (test code = 2885-2) 7.2 6.5-8.1 [facility] CenterAlbumin2019-10-01 23:15:00* Test Item Value Reference Range Interpretation Comments Albumin (test code = 1751-7) 3.0 3.5-5.0 L [facility] CenterGlobulin2019-10-01 23:15:00* Test Item Value Reference Range Interpretation Comments Globulin (test code = 11080-6) 4.2 2.3-3.5 H [facility] CenterAlbumin/Globulin Btcwu3313-54-09 23:15:00 * Test Item Value Reference Range Interpretation Comments Albumin/Globulin Ratio (test code = 1759-0) 0.7 0.8-2.0 L [facility] CenterAlkaline Srbrhebnkgh7210-05-72 23:15:00* Test Item Value Reference Range Interpretation Comments Alkaline Phosphatase (test code = 6768-6) 97 40-150 [facility] CenterLactic Acid Fjcqj8984-33-31 23:15:00* Test Item Value Reference Range Interpretation Comments Lactic Acid Level (test code = Lactic Acid Level) 6.8 4.5- 19.8 [facility] CenterLactic Acid Guurf2026-58-19 23:15:00* Test Item Value Reference Range Interpretation Comments Lactic Acid Level (test code = Lactic Acid Level) 6.8 4.5- 19.8 [facility] IQVGTFXPM4490-01-19 07:03:00 RUN DATE: 07/13/19 [facility] *LIVE* PAGE 1 RUN TIME: 702 Specimen Inqui ry RUN USER: INTERFACE PATIENT: COMPA CASAS ACCT #: G [id number] LOC: Stuart4SILO U #: [id number] AGE/SX: 68/F ROOM: [facility] RE07/08/19REG DR: Alee Lao MD : 46 BED: 1 DIS: 07/08/19 STATUS: DIS IN TLOC: SPEC #: [id number] RECD: 07/08/19 STATUS: JOHNATHAN REQ #: [id number] FLACO: 07/08/[address] [facility] [address]: Alee Lao MD ENTERED: 07/12/19 SP TYPE: SURG SPEC OTHR DR: Ela Myers MD, Terri B MD Tran, James Le Thanh MDORDERED: GM LEVEL 4 CODES: [id number] - UTERUS, NOS FF4531 - PELVIS, NOS COPIES TO: [place] [address] [place] [address] Alee Lao MD [address] [place] [address] Teresa Olson MD [address] [place] [address] Dwain Anderson MD [address] [facility] [place] [address] PROCEDURES: DAVID BROWN 4 (Incomplete) TISSUES: 1. UTERUS, NOS - [...] ON NEXT PAGE RUN DATE: 07/13/19 [facility] *LIVE* PAGE 2 RUN TIME: 702 Specimen Inquiry RUN USER: INTERFACE SPEC #: [id number] PATIENT: COMPA CASAS #[id number] (Continued) - GROSS AND MICROSCOPIC FROZEN SECTION [...] cancer PRE-OP DIAGNOSIS Uterine cancer REVIEWED BY: Krissy John CONTINUED ON NEXT PAGE RUN DATE: 07/13/19 [facility] *LIVE* PAGE 3 RUN TIME: 702 Specimen Inquiry RUN USER: INTERFACE SPEC #: [id number] PATIENT: COMPA CASAS #[id number] (Continued) Signed SIGNATURE ON FILE Meaghan Brooks MD 07/13/1903 END OF REPORT SURGICAL TOQKDPDGA2163-35-80 07:03:00 RUN DATE: 07/14/19 [facility] *LIVE* PAGE 1 RUN TIME: 820 Specimen Inqui ry RUN USER: INTERFACE PATIENT: COMPA CASAS ACCT #: G [id number] LOC: Stuart[facility]SMSO U #: [id number] AGE/SX: 68/F ROOM: [facility] RE07/08/19[facility] DR: Alee Lao MD : 46 BED: 1 DIS: 07/08/19 STATUS: DIS IN TLOC: SPEC #: [id number] RECD: 07/08/19 STATUS: JOHNATHAN EDWARDS #: [id number] FLACO: 07/08/[address] [facility] [address]: Alee Lao MD ENTERED: 07/12/19 SP TYPE: SURG SPEC OTHR DR: Ela Myers MD, Terri B MD Tran, James Le Thanh MDORDERED: LEVEL 4 CODES: [id number] - UTERUS, NOS IH3809 - PELVIS, NOS [place] TO: [place] [address] [place] [address] Alee Lao MD [address] [id number] Teresa Olson MD [address] [place] [address] Dwain Anderson MD [address] [facility], [address] [place] [address] PROCEDURES: LE SUSAN 4 (Incomplete) TISSUES: 1. [...] SPEC #: [id number] KYLAH RYDER: COMPA CASAS #[id number] (Continued) ADDENDUM FINDINGS (Continued) *Histologic Type: Endometrioid [...] fallopian CONTINUED ON NEXT PAGE RUN DATE: [facility] *LIVE* PAGE 3 RUN TIME: 820 Specimen Inquiry RU N USER: INTERFACE ---- --------SPEC #: [id number] PATIENT: COMPA CASAS #[id number] (Continued) GROSS AND MICROSCOPIC (Continued) tube measuring [...] Brooks MD 07/13/19 0703 END OF R BETHRT SURGICAL ODPRHIVWM8740-97-62 07:03:00 RUN DATE: 07/28/19 [facility] *LIVE* PAGE 1 RUN TIME: 814 Specimen Inqui ry RUN USER: INTERFACE PATIENT: COMPA CASAS ACCT #: G [id number] LOC: DidierMSRex U #: [id number] AGE/SX: 68/F ROOM: [facility] RE07/08/19REG DR: Alee Lao MD : 46 BED: 1 DIS: 07/08/19 STATUS: DIS IN TLOC: SPEC #: [id number] RECD: 07/08/19 STATUS: JOHNATHAN EDWARDS #: [id number] FLACO: 07/08/[address] [facility] [address]: Alee Lao MD ENTERED: 07/12/19 SP TYPE: SURG SPEC OTHR DR: Ela Myers MD, Terri B MD Tran,Dwain Recinos MDORDERED: GM LEVEL 4 CODES: [id number] - UTERUS, NOS ON4745 - PELVIS, NOS COPIES TO: [place] [address] [place] [address] Alee Lao MD [address] [place] [address] Teresa Olson MD [address] [place] [address] Dwain Anderson MD [address] [facility], [address] [place] [address] PROCEDURES: DAVID ROMERO SUSAN 4 (Incomplete) TISSUES: [...] SPEC #: [id number] KYLAH RYDER: COMPA CASAS #[id number] (Continued) ADDENDUM FINDINGS (Continued) in these mismatch repair proteins. 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 Please see attached outside reports for complete details. Addendum Signed SIGNATURE ON FILE Meaghan Brooks MD 07/28/19 0815 Addendum #1 Entered: -1624 *Specimen: Uterine corpus, cervix, bilateral adnexa. *Procedure: [...] INTERFACE SPEC #: [id number] PATIENT: COMPA CASAS #[id number] (Continued) FINAL DIAGNOSIS Uterus, cervix, bilateral tubes [...] CONTINUED ON NEXT PAGE RUN DATE: 07/28/19 [facility] *LIVE* PAGE 4 RUN TIME: 0815 S radhika Carlton RUN USER: INTERFACE SPEC #: [id number] PATIENT: COMPA CASAS #[id number] (Continued) PO ST-OP DIAGNOSIS Uterine cancer PRE-OP DIAGNOSIS Uterine cancer REVIEWED BY: Signed SIGNATURE ON FILE Meaghan Brooks MD 07/13/19 0703 END OF REPORT [id number] 17:21:00* Test Item Value Reference Range Interpretation Comments GLUBED (test code = GLUBED) 123 MG/DL 70-110 H Performed by certified hotbed transfer operator at [facility] BFBKCV3508-49-41 13:28:00* Test Item Value Reference Range Interpretation Comments GLUBED (test code = GLUBED) 193 MG/DL 70-110 H Performed by certified hotbed transfer operator at [facility] UHYQHK4184-33-40 08:03:00* Test Item Value Reference Range Interpretation Comments GLUBED (test code = GLUBED) 92 MG/DL 70-110 N Performed by certified hotbed transfer operator at [facility] COMPREHENSIVE METABOLIC FKXRM5208-93-97 05:29:00* Test Item Value Reference Range Interpretation [...] ALKP) 82 IUnit/L 20-125 N CBC W/AUTO RFSU2977-17-56 04:50:00* Test Item Value Reference Range Interpretation [...] DIFF REQUIRED (test code = MDIFF) NO AJDJGV1286-89-02 20:53:00* Test Item Value Reference Range Interpretation Comments GLUBED (test code = GLUBED) 184 MG/DL 70-110 H Performed by certified hotbed transfer operator at [facility] PGQUDO9531-67-99 14:36:00* Test Item Value Reference Range Interpretation Comments GLUBED (test code = GLUBED) 114 MG/DL 70-110 H Performed by certified hotbed transfer operator at [facility] POC ARTERIAL BLOOD EVE6220-09-82 13:06:00* Test Item Value Reference Range Interpretation Comments POC ARTERIAL BLOOD GAS PH (test code = POCPHA) 7.190 7.35-7. 45 LL POC ARTERIAL BLOOD GAS PCO2 (test code = CJJCPF6F) 59.3 mmHg 35. 0-45 HH POC TCO2 ARTERIAL (test code = POCTCO2) 24.5 POC ARTERIAL BLOOD GAS PO2 (test code = USAXV7J) 149.1 mmHg 80-10 0.0 H POC HCO3 ARTERIAL (test code = BHRSNU3M) 22.7 MMOL/L 22.0-26.0 N POC BASE EXCESS (test code = POCBEA) -5.4 MMOL/L -4.0-4.0 L POC O2 SATURATION (test code = POCO2S) 98.6 % 90-100 N [id number] 13:06:00* Test Item Value Reference Range Interpretation Comments SODIUM (test code = NA/ABG) MEQ/L 134-147 AXXVDKRXT8622-47-47 13:06:00* Test Item Value Reference Range Interpretation Comments POTASSIUM (test code = K/ABG) MEQ/L 3.4-5.0 MUMWHTIP9131-24-42 13:06:00* Test Item Value Reference Range Interpretation Comments CHLORIDE (test code = CL/ABG) MEQ/L 100-108 CREATININE IPN3156-69-59 13:06:00* Test Item Value Reference Range Interpretation Comments CREATININE ABG (test code = CREAABG) mg/dL 0.6-1.0 XFHJWEPWAE7326-76-46 13:06:00* Test Item Value Reference Range Interpretation Comments HEMOGLOBIN (test code = HGB/ABG) G/DL 11.0-15.0 KYZULSAOYL5161-16-40 13:06:00* Test Item Value Reference Range Interpretation Comments HEMATOCRIT (test code = HCT/ABG) % 33.0-45.0 POC IONIZED PHEEOEN2663-75-80 13:06:00* Test Item Value Reference Range Interpretation Comments POC IONIZED CALCIUM (test code = POCCA) MMOL/L 1.12-1.32 POC UFCHMIY7489-35-48 13:06:00* Test Item Value Reference Range Interpretation Comments POC GLUCOSE (test code = POCGLU) MG/DL 70-110 POC ARTERIAL BLOOD [id number] 13:06:00* Test Item Value Reference Range Interpretation Comments POC ARTERIAL BLOOD GAS PH (test code = POCPHA) 7.190 7.35-7. 45 LL POC ARTERIAL BLOOD GAS PCO2 (test code = RTMQOU5E) 59.3 mmHg 35. 0-45 HH POC TCO2 ARTERIAL (test code = POCTCO2) 24.5 POC ARTERIAL BLOOD GAS PO2 (test code = ZILOE2K) 149.1 mmHg 80-10 0.0 H POC HCO3 ARTERIAL (test code = MVZPQO9A) 22.7 MMOL/L 22.0-26.0 N POC BASE EXCESS (test code = POCBEA) -5.4 MMOL/L -4.0-4.0 L POC O2 SATURATION (test code = POCO2S) 98.6 % 90-100 N [id number] 13:06:00* Test Item Value Reference Range Interpretation Comments SODIUM (test code = NA/ABG) 142 MEQ/L 134-147 N [id number] 13:06:00* Test Item Value Reference Range Interpretation Comments POTASSIUM (test code = K/ABG) MEQ/L 3.4-5.0 [id number] 13:06:00* Test Item Value Reference Range Interpretation Comments CHLORIDE (test code = CL/ABG) MEQ/L 100-108 CREATININE [id number] 13:06:00* Test Item Value Reference Range Interpretation Comments CREATININE ABG (test code = CREAABG) mg/dL 0.6-1.0 [id number] 13:06:00* Test Item Value Reference Range Interpretation Comments HEMOGLOBIN (test code = HGB/ABG) G/DL 11.0-15.0 [id number] 13:06:00* Test Item Value Reference Range Interpretation Comments HEMATOCRIT (test code = HCT/ABG) % 33.0-45.0 POC IONIZED [id number] 13:06:00* Test Item Value Reference Range Interpretation Comments POC IONIZED CALCIUM (test code = POCCA) MMOL/L 1.12-1.32 POC [id number] 13:06:00* Test Item Value Reference Range Interpretation Comments POC GLUCOSE (test code = POCGLU) MG/DL 70-110 POC ARTERIAL BLOOD [id number] 13:06:00* Test Item Value Reference Range Interpretation Comments POC ARTERIAL BLOOD GAS PH (test code = POCPHA) 7.190 7.35-7. 45 LL POC ARTERIAL BLOOD GAS PCO2 (test code = EADNUQ1O) 59.3 mmHg 35. 0-45 HH POC TCO2 ARTERIAL (test code = POCTCO2) 24.5 POC ARTERIAL BLOOD GAS PO2 (test code = PJDRJ3D) 149.1 mmHg 80-10 0.0 H POC HCO3 ARTERIAL (test code = CSOCBV4S) 22.7 MMOL/L 22.0-26.0 N POC BASE EXCESS (test code = POCBEA) -5.4 MMOL/L -4.0-4.0 L POC O2 SATURATION (test code = POCO2S) 98.6 % 90-100 N [id number] 13:06:00* Test Item Value Reference Range Interpretation Comments SODIUM (test code = NA/ABG) 142 MEQ/L 134-147 N [id number] 13:06:00* Test Item Value Reference Range Interpretation Comments POTASSIUM (test code = K/ABG) 3.2 MEQ/L 3.4-5.0 L [id number] 13:06:00* Test Item Value Reference Range Interpretation Comments CHLORIDE (test code = CL/ABG) MEQ/L 100-108 CREATININE [id number] 13:06:00* Test Item Value Reference Range Interpretation Comments CREATININE ABG (test code = CREAABG) mg/dL 0.6-1.0 [id number] 13:06:00* Test Item Value Reference Range Interpretation Comments HEMOGLOBIN (test code = HGB/ABG) G/DL 11.0-15.0 [id number] 13:06:00* Test Item Value Reference Range Interpretation Comments HEMATOCRIT (test code = HCT/ABG) % 33.0-45.0 POC IONIZED [id number] 13:06:00* Test Item Value Reference Range Interpretation Comments POC IONIZED CALCIUM (test code = POCCA) MMOL/L 1.12-1.32 POC [id number] 13:06:00* Test Item Value Reference Range Interpretation Comments POC GLUCOSE (test code = POCGLU) MG/DL 70-110 POC ARTERIAL BLOOD [id number] 13:06:00* Test Item Value Reference Range Interpretation Comments POC ARTERIAL BLOOD GAS PH (test code = POCPHA) 7.190 7.35-7. 45 LL POC ARTERIAL BLOOD GAS PCO2 (test code = JWVLXP2Y) 59.3 mmHg 35. 0-45 HH POC TCO2 ARTERIAL (test code = POCTCO2) 24.5 POC ARTERIAL BLOOD GAS PO2 (test code = YPFXP3D) 149.1 mmHg 80-10 0.0 H POC HCO3 ARTERIAL (test code = SALDIQ4W) 22.7 MMOL/L 22.0-26.0 N POC BASE EXCESS (test code = POCBEA) -5.4 MMOL/L -4.0-4.0 L POC O2 SATURATION (test code = POCO2S) 98.6 % 90-100 N [id number] 13:06:00* Test Item Value Reference Range Interpretation Comments SODIUM (test code = NA/ABG) 142 MEQ/L 134-147 N [id number] 13:06:00* Test Item Value Reference Range Interpretation Comments POTASSIUM (test code = K/ABG) 3.2 MEQ/L 3.4-5.0 L [id number] 13:06:00* Test Item Value Reference Range Interpretation Comments CHLORIDE (test code = CL/ABG) MEQ/L 100-108 CREATININE [id number] 13:06:00* Test Item Value Reference Range Interpretation Comments CREATININE ABG (test code = CREAABG) mg/dL 0.6-1.0 [id number] 13:06:00* Test Item Value Reference Range Interpretation Comments HEMOGLOBIN (test code = HGB/ABG) G/DL 11.0-15.0 [id number] 13:06:00* Test Item Value Reference Range Interpretation Comments HEMATOCRIT (test code = HCT/ABG) % 33.0-45.0 POC IONIZED [id number] 13:06:00* Test Item Value Reference Range Interpretation Comments POC IONIZED CALCIUM (test code = POCCA) 1.06 MMOL/L 1.12-1.32 L POC [id number] 13:06:00* Test Item Value Reference Range Interpretation Comments POC GLUCOSE (test code = POCGLU) MG/DL 70-110 POC ARTERIAL BLOOD [id number] 13:06:00* Test Item Value Reference Range Interpretation Comments POC ARTERIAL BLOOD GAS PH (test code = POCPHA) 7.190 7.35-7. 45 LL POC ARTERIAL BLOOD GAS PCO2 (test code = YYNYPS8J) 59.3 mmHg 35. 0-45 HH POC TCO2 ARTERIAL (test code = POCTCO2) 24.5 POC ARTERIAL BLOOD GAS PO2 (test code = CHYJK4D) 149.1 mmHg 80-10 0.0 H POC HCO3 ARTERIAL (test code = CGWFGP4T) 22.7 MMOL/L 22.0-26.0 N POC BASE EXCESS (test code = POCBEA) -5.4 MMOL/L -4.0-4.0 L POC O2 SATURATION (test code = POCO2S) 98.6 % 90-100 N [id number] 13:06:00* Test Item Value Reference Range Interpretation Comments SODIUM (test code = NA/ABG) 142 MEQ/L 134-147 N [id number] 13:06:00* Test Item Value Reference Range Interpretation Comments POTASSIUM (test code = K/ABG) 3.2 MEQ/L 3.4-5.0 L [id number] 13:06:00* Test Item Value Reference Range Interpretation Comments CHLORIDE (test code = CL/ABG) MEQ/L 100-108 CREATININE [id number] 13:06:00* Test Item Value Reference Range Interpretation Comments CREATININE ABG (test code = CREAABG) mg/dL 0.6-1.0 [id number] 13:06:00* Test Item Value Reference Range Interpretation Comments HEMOGLOBIN (test code = HGB/ABG) G/DL 11.0-15.0 [id number] 13:06:00* Test Item Value Reference Range Interpretation Comments HEMATOCRIT (test code = HCT/ABG) % 33.0-45.0 POC IONIZED [id number] 13:06:00* Test Item Value Reference Range Interpretation Comments POC IONIZED CALCIUM (test code = POCCA) 1.06 MMOL/L 1.12-1.32 L POC [id number] 13:06:00* Test Item Value Reference Range Interpretation Comments POC GLUCOSE (test code = POCGLU) 103 MG/DL 70-110 N POC ARTERIAL BLOOD [id number] 13:06:00* Test Item Value Reference Range Interpretation Comments POC ARTERIAL BLOOD GAS PH (test code = POCPHA) 7.190 7.35-7. 45 LL POC ARTERIAL BLOOD GAS PCO2 (test code = SRKHYZ5L) 59.3 mmHg 35. 0-45 HH POC TCO2 ARTERIAL (test code = POCTCO2) 24.5 POC ARTERIAL BLOOD GAS PO2 (test code = WXTDP5W) 149.1 mmHg 80-10 0.0 H POC HCO3 ARTERIAL (test code = ZZWQOF2L) 22.7 MMOL/L 22.0-26.0 N POC BASE EXCESS (test code = POCBEA) -5.4 MMOL/L -4.0-4.0 L POC O2 SATURATION (test code = POCO2S) 98.6 % 90-100 N [id number] 13:06:00* Test Item Value Reference Range Interpretation Comments SODIUM (test code = NA/ABG) 142 MEQ/L 134-147 N [id number] 13:06:00* Test Item Value Reference Range Interpretation Comments POTASSIUM (test code = K/ABG) 3.2 MEQ/L 3.4-5.0 L [id number] 13:06:00* Test Item Value Reference Range Interpretation Comments CHLORIDE (test code = CL/ABG) MEQ/L 100-108 CREATININE [id number] 13:06:00* Test Item Value Reference Range Interpretation Comments CREATININE ABG (test code = CREAABG) mg/dL 0.6-1.0 [id number] 13:06:00* Test Item Value Reference Range Interpretation Comments HEMOGLOBIN (test code = HGB/ABG) G/DL 11.0-15.0 [id number] 13:06:00* Test Item Value Reference Range Interpretation Comments HEMATOCRIT (test code = HCT/ABG) 23 % 33.0-45.0 L POC IONIZED [id number] 13:06:00* Test Item Value Reference Range Interpretation Comments POC IONIZED CALCIUM (test code = POCCA) 1.06 MMOL/L 1.12-1.32 L POC [id number] 13:06:00* Test Item Value Reference Range Interpretation Comments POC GLUCOSE (test code = POCGLU) 103 MG/DL 70-110 N POC ARTERIAL BLOOD [id number] 13:06:00* Test Item Value Reference Range Interpretation Comments POC ARTERIAL BLOOD GAS PH (test code = POCPHA) 7.190 7.35-7. 45 LL POC ARTERIAL BLOOD GAS PCO2 (test code = NNWTNS0Z) 59.3 mmHg 35. 0-45 HH POC TCO2 ARTERIAL (test code = POCTCO2) 24.5 POC ARTERIAL BLOOD GAS PO2 (test code = ATYCU7X) 149.1 mmHg 80-10 0.0 H POC HCO3 ARTERIAL (test code = XUFOLE7E) 22.7 MMOL/L 22.0-26.0 N POC BASE EXCESS (test code = POCBEA) -5.4 MMOL/L -4.0-4.0 L POC O2 SATURATION (test code = POCO2S) 98.6 % 90-100 N [id number] 13:06:00* Test Item Value Reference Range Interpretation Comments SODIUM (test code = NA/ABG) 142 MEQ/L 134-147 N [id number] 13:06:00* Test Item Value Reference Range Interpretation Comments POTASSIUM (test code = K/ABG) 3.2 MEQ/L 3.4-5.0 L [id number] 13:06:00* Test Item Value Reference Range Interpretation Comments CHLORIDE (test code = CL/ABG) MEQ/L 100-108 CREATININE [id number] 13:06:00* Test Item Value Reference Range Interpretation Comments CREATININE ABG (test code = CREAABG) mg/dL 0.6-1.0 [id number] 13:06:00* Test Item Value Reference Range Interpretation Comments HEMOGLOBIN (test code = HGB/ABG) 7.7 G/DL 11.0-15.0 L [id number] 13:06:00* Test Item Value Reference Range Interpretation Comments HEMATOCRIT (test code = HCT/ABG) 23 % 33.0-45.0 L POC IONIZED [id number] 13:06:00* Test Item Value Reference Range Interpretation Comments POC IONIZED CALCIUM (test code = POCCA) 1.06 MMOL/L 1.12-1.32 L POC [id number] 13:06:00* Test Item Value Reference Range Interpretation Comments POC GLUCOSE (test code = POCGLU) 103 MG/DL 70-110 N POC ARTERIAL BLOOD [id number] 13:06:00* Test Item Value Reference Range Interpretation Comments POC ARTERIAL BLOOD GAS PH (test code = POCPHA) 7.190 7.35-7. 45 LL POC ARTERIAL BLOOD GAS PCO2 (test code = YIJAIH1D) 59.3 mmHg 35. 0-45 HH POC TCO2 ARTERIAL (test code = POCTCO2) 24.5 POC ARTERIAL BLOOD GAS PO2 (test code = GTQKT4S) 149.1 mmHg 80-10 0.0 H POC HCO3 ARTERIAL (test code = HEVLVE3G) 22.7 MMOL/L 22.0-26.0 N POC BASE EXCESS (test code = POCBEA) -5.4 MMOL/L -4.0-4.0 L POC O2 SATURATION (test code = POCO2S) 98.6 % 90-100 N [id number] 13:06:00* Test Item Value Reference Range Interpretation Comments SODIUM (test code = NA/ABG) 142 MEQ/L 134-147 N [id number] 13:06:00* Test Item Value Reference Range Interpretation Comments POTASSIUM (test code = K/ABG) 3.2 MEQ/L 3.4-5.0 L [id number] 13:06:00* Test Item Value Reference Range Interpretation Comments CHLORIDE (test code = CL/ABG) 112 MEQ/L 100-108 H CREATININE [id number] 13:06:00* Test Item Value Reference Range Interpretation Comments CREATININE ABG (test code = CREAABG) mg/dL 0.6-1.0 [id number] 13:06:00* Test Item Value Reference Range Interpretation Comments HEMOGLOBIN (test code = HGB/ABG) 7.7 G/DL 11.0-15.0 L [id number] 13:06:00* Test Item Value Reference Range Interpretation Comments HEMATOCRIT (test code = HCT/ABG) 23 % 33.0-45.0 L POC IONIZED [id number] 13:06:00* Test Item Value Reference Range Interpretation Comments POC IONIZED CALCIUM (test code = POCCA) 1.06 MMOL/L 1.12-1.32 L POC [id number] 13:06:00* Test Item Value Reference Range Interpretation Comments POC GLUCOSE (test code = POCGLU) 103 MG/DL 70-110 N POC ARTERIAL BLOOD [id number] 13:06:00* Test Item Value Reference Range Interpretation Comments POC ARTERIAL BLOOD GAS PH (test code = POCPHA) 7.190 7.35-7. 45 LL POC ARTERIAL BLOOD GAS PCO2 (test code = JGOVGN6F) 59.3 mmHg 35. 0-45 HH POC TCO2 ARTERIAL (test code = POCTCO2) 24.5 POC ARTERIAL BLOOD GAS PO2 (test code = OHQAM0J) 149.1 mmHg 80-10 0.0 H POC HCO3 ARTERIAL (test code = IQCVPW2C) 22.7 MMOL/L 22.0-26.0 N POC BASE EXCESS (test code = POCBEA) -5.4 MMOL/L -4.0-4.0 L POC O2 SATURATION (test code = POCO2S) 98.6 % 90-100 N [id number] 13:06:00* Test Item Value Reference Range Interpretation Comments SODIUM (test code = NA/ABG) 142 MEQ/L 134-147 N [id number] 13:06:00* Test Item Value Reference Range Interpretation Comments POTASSIUM (test code = K/ABG) 3.2 MEQ/L 3.4-5.0 L [id number] 13:06:00* Test Item Value Reference Range Interpretation Comments CHLORIDE (test code = CL/ABG) 112 MEQ/L 100-108 H CREATININE [id number] 13:06:00* Test Item Value Reference Range Interpretation Comments CREATININE ABG (test code = CREAABG) 1.0 mg/dL 0.6-1.0 N [id number] 13:06:00* Test Item Value Reference Range Interpretation Comments HEMOGLOBIN (test code = HGB/ABG) 7.7 G/DL 11.0-15.0 L [id number] 13:06:00* Test Item Value Reference Range Interpretation Comments HEMATOCRIT (test code = HCT/ABG) 23 % 33.0-45.0 L POC IONIZED [id number] 13:06:00* Test Item Value Reference Range Interpretation Comments POC IONIZED CALCIUM (test code = POCCA) 1.06 MMOL/L 1.12-1.32 L POC [id number] 13:06:00* Test Item Value Reference Range Interpretation Comments POC GLUCOSE (test code = POCGLU) 103 MG/DL 70-110 N BASIC METABOLIC [id number] 09:25:00* Test Item Value Reference Range Interpretation [...] CA) 8.4 mg/dL 8.0-10.5 N BASIC METABOLIC [id number] 09:12:00* Test Item Value Reference Range Interpretation [...] code = CA) 8.4 mg/dL 8.0-10.5 N [id number] 09:04:00* Test Item Value Reference Range Interpretation Comments GLUBED (test code = GLUBED) 169 MG/DL 70-110 H Performed by certified hotbed transfer operator at [facility] - XR CHEST 2 [id number] 14:06:00 FAX: Teresa Rhoades [phone] [facility]: St: PRE FAX: Dwain Anderson [phone] Name: COMPA CASAS [facility] : 1950 Age/S: 68/F [address] [place] [address] Unit #: [id number] Loc: [place] [address] Phys: Teresa Olson MD Acct: [id number] Dis Date: Status: PRE SDC PHONE #: [phone] Exam Date: 07/05/2019 1232 FAX #: [phone] Reason: PREOP- UTERINE CA EXAMS: CPT CODE: [id number] XR CHEST 2 V 70387 CHEST RADIOGRAPHS - PA AND LATERAL: COMPARISON: April 01, 2019 CLINICAL HISTORY: PREOP- UTERINE CA There is mild stable cardiomegaly. Diffuse bilateral interstitial prominence is present, similar to the prior study. Findings likely represent interstitial fibrosis. No focal infiltrates are seen. There is no pneumothorax. IMPRESSION: Probable chronic changes of interstitial fibrosis. Stable cardiomegaly. at 140 Reported and signed by: Yariel Vasquez M.D. CC: Teresa Olson MD; Dwain Valentino MD Technologist: Shell john RT(R) Trnscrd Date/Time/By: 07/05/2019 ( 6649) : By: [email or web address] Orig Print D/T: S: 07/05/2019 (2524) PAGE 1 Signed Report PROTHROMBIN [id number] 13:41:00* Test Item Value Reference Range Interpretation [...] Infarction (to prevent recurrent infarct). THROMBOPLASTIN TIME [id number] 13:41:00* Test Item Value Reference Range Interpretation Comments THROMBOPLASTIN TIME PARTIAL (test code = PTT) 27.7 Seconds 25.0-39. 5 N Therapeutic Range: 50.4 - 88.3 Seconds Effective 02/01/2019 BASIC METABOLIC [id number] 13:33:00* Test Item Value Reference Range Interpretation [...] CA) 8.5 mg/dL 8.0-10.5 N CBC W/AUTO [id number] 13:21:00* Test Item Value Reference Range Interpretation [...] REQUIRED (test code = MDIFF) NO Sodium [id number] 20:14:00* Test Item Value Reference Range Interpretation Comments Sodium Level (test code = 2951-2) 140 136-145 [facility] CenterPotassium [id number] 20:14:00* Test Item Value Reference Range Interpretation Comments Potassium Level (test code = 2823-3) 3.7 3.5-5.1 [facility] CenterChloride [id number] 20:14:00* Test Item Value Reference Range Interpretation Comments Chloride Level (test code = 2075-0) 103 98-107 [facility] CenterCarbon Dioxide [id number] 20:14:00* Test Item Value Reference Range Interpretation Comments Carbon Dioxide Level (test code = 2028-9) 27 22-29 [facility] CenterAnion [id number] 20:14:00* Test Item Value Reference Range Interpretation Comments Anion Gap (test code = 32647-9) 13.7 8-16 [facility] CenterBlood Urea [id number] 20:14:00* Test Item Value Reference Range Interpretation Comments Blood Urea Nitrogen (test code = 3094-0) 24 7-26 [facility] CenterCreatinine2019-08-25 20:14:00* Test Item Value Reference Range Interpretation Comments Creatinine (test code = 2160-0) 1.23 0.57-1.11 H [facility] CenterBUN/Creatinine [id number] 20:14:00* Test Item Value Reference Range Interpretation Comments BUN/Creatinine Ratio (test code = 3097-3) 07 04- [facility] CenterEstimat Glomerular Filtration Rate 2019-06-12 20:14:00* Test Item Value Reference Range Interpretation Comments Estimat Glomerular Filtration Rate (test code = 491131816) 43 >60 L Ranges were taken from the National Kidney Disease Education Program and the Jaimee ional [employer] literature.Reference ranges:60 or greater: Fuevqh06-43 ( for 3 consecutive months): Chronic kidney disease 15 or less: Kidney failureMichael E. [facility]Bakey [facility] Medical CenterGlucose [id number] 20:14:00* Test Item Value Reference Range Interpretation Comments Glucose Level (test code = TDC6584) 139 74-118 H [facility] CenterCalcium [id number] 20:14:00* Test Item Value Reference Range Interpretation Comments Calcium Level (test code = 60414-5) 9.2 8.4-10.2 [facility] CenterProthrombin [id number] 20:13:00* Test Item Value Reference Range Interpretation Comments Prothrombin Time (test code = 5902-2) 14.5 11.9-14.5 [facility] CenterProthromb Time International Ratio 2019-06-12 20:13:00* Test Item Value Reference Range Interpretation Comments Prothromb Time International Ratio (test code = 6301-6) 1.08 Oral Anticoagulant Therapy INR Values:1. Low Intensity Therapy 1.5 - 2.02 . Moderate Intensity Therapy 2.0 - 3.03. High Intensity Therapy(1) 2.5 - 3. 54. High Intensity Therapy(2) 3.0 - 4.05. Panic Value INR > 5.0 [facility] CenterActivated Partial Thromboplast Time 2019-06-12 20:13:00* Test Item Value Reference Range Interpretation Comments Activated Partial Thromboplast Time (test code = 68101-0) 28.0 23.8-35.5 [facility] CenterProthrombin [id number] 20:13:00* Test Item Value Reference Range Interpretation Comments Prothrombin Time (test code = 5902-2) 14.5 11.9-14.5 [facility] CenterProthromb Time International Ratio 2019-06-12 20:13:00* Test Item Value Reference Range Interpretation Comments Prothromb Time International Ratio (test code = 6301-6) 1.08 Oral Anticoagulant Therapy INR Values:1. Low Intensity Therapy 1.5 - 2.02 . Moderate Intensity Therapy 2.0 - 3.03. High Intensity Therapy(1) 2.5 - 3. 54. High Intensity Therapy(2) 3.0 - 4.05. Panic Value INR > 5.0 [facility] CenterActivated Partial Thromboplast Time 2019-06-12 20:13:00* Test Item Value Reference Range Interpretation Comments Activated Partial Thromboplast Time (test code = 45413-2) 28.0 23.8-35.5 [facility] CenterProthrombin [id number] 20:13:00* Test Item Value Reference Range Interpretation Comments Prothrombin Time (test code = 5902-2) 14.5 11.9-14.5 [facility] CenterProthromb Time International Ratio 2019-06-12 20:13:00* Test Item Value Reference Range Interpretation Comments Prothromb Time International Ratio (test code = 6301-6) 1.08 Oral Anticoagulant Therapy INR Values:1. Low Intensity Therapy 1.5 - 2.02 . Moderate Intensity Therapy 2.0 - 3.03. High Intensity Therapy(1) 2.5 - 3. 54. High Intensity Therapy(2) 3.0 - 4.05. Panic Value INR > 5.0 [facility] CenterActivated Partial Thromboplast Time 2019-06-12 20:13:00* Test Item Value Reference Range Interpretation Comments Activated Partial Thromboplast Time (test code = 91699-1) 28.0 23.8-35.5 [facility] CenterWhite Blood [id number] 19:51:00* Test Item Value Reference Range Interpretation Comments White Blood Count (test code = 6690-2) 9.57 4.8-10.8 [facility] CenterRed Blood Jgrvr2827-47-49 19:51:00* Test Item Value Reference Range Interpretation Comments Red Blood Count (test code = 789-8) 4.11 3.6-5.1 [facility] CenterHemoglobin2019-08-25 19:51:00* Test Item Value Reference Range Interpretation Comments Hemoglobin (test code = 38374-9) 10.1 12.0-16.0 L [facility] CenterHematocrit2019-08-25 19:51:00* Test Item Value Reference Range Interpretation Comments Hematocrit (test code = 4544-3) 32.8 34.2-44.1 L [facility] CenterMean Corpuscular [id number] 19:51:00* Test Item Value Reference Range Interpretation Comments Mean Corpuscular Volume (test code = 787-2) 79.8 81-99 L [facility] CenterMean Corpuscular Wiqfasgwmv6774-25-32 19:51:00* Test Item Value Reference Range Interpretation Comments Mean Corpuscular Hemoglobin (test code = 785-6) 24.6 28-32 L [facility] CenterMean Corpuscular Hemoglobin Concent 2019-06-12 19:51:00* Test Item Value Reference Range Interpretation Comments Mean Corpuscular Hemoglobin Concent (test code = 786-4) 30.8 31-35 L [facility] CenterRed Cell Distribution Hmvzo1115-70-22 19:51:00* Test Item Value Reference Range Interpretation Comments Red Cell Distribution Width (test code = 10263-2) 15.4 11.7 -14.4 H [facility] CenterPlatelet Vqtmy6158-04-21 19:51:00* Test Item Value Reference Range Interpretation Comments Platelet Count (test code = 777-3) 194 140-360 [facility] CenterNeutrophils (%) (Auto)2019-06-12 19:51:00 * Test Item Value Reference Range Interpretation Comments Neutrophils (%) (Auto) (test code = 64862-5) 70.7 38.7-80.0 [facility] CenterLymphocytes (%) (Auto)2019-06-12 19:51:00 * Test Item Value Reference Range Interpretation Comments Lymphocytes (%) (Auto) (test code = 736-9) 16.3 18.0-39.1 L [facility] CenterMonocytes (%) (Auto)2019-06-12 19:51:00* Test Item Value Reference Range Interpretation Comments Monocytes (%) (Auto) (test code = 5905-5) 9.1 4.4-11.3 [facility] CenterEosinophils (%) (Auto)2019-06-12 19:51:00 * Test Item Value Reference Range Interpretation Comments Eosinophils (%) (Auto) (test code = 713-8) 3.1 0.0-6.0 [facility] CenterBasophils (%) (Auto)2019-06-12 19:51:00* Test Item Value Reference Range Interpretation Comments Basophils (%) (Auto) (test code = 706-2) 0.4 0.0-1.0 [facility] CenterIM GRANULOCYTES %2019-06-12 19:51:00* Test Item Value Reference Range Interpretation Comments IM GRANULOCYTES % (test code = IM GRANULOCYTES %) 0.4 0.0- 1.0 [facility] CenterNeutrophils # (Auto)2019-06-12 19:51:00* Test Item Value Reference Range Interpretation Comments Neutrophils # (Auto) (test code = 751-8) 6.8 2.1-6.9 [facility] CenterLymphocytes # (Auto)2019-06-12 19:51:00* Test Item Value Reference Range Interpretation Comments Lymphocytes # (Auto) (test code = 52860-3) 1.6 1.0-3.2 [facility] (Auto)2019-06-12 19:51:00* Test Item Value Reference Range Interpretation Comments Monocytes # (Auto) (test code = 742-7) 0.9 0.2-0.8 H [facility] # (Auto)2019-06-12 19:51:00* Test Item Value Reference Range Interpretation Comments Eosinophils # (Auto) (test code = 711-2) 0.3 0.0-0.4 [facility] CenterBasophils # (Auto)2019-06-12 19:51:00* Test Item Value Reference Range Interpretation Comments Basophils # (Auto) (test code = 704-7) 0.0 0.0-0.1 [facility] CenterAbsolute Immature Granulocyte (auto 2019-06-12 19:51:00* Test Item Value Reference Range Interpretation Comments Absolute Immature Granulocyte (auto (kayla t code = Absolute Immature Granulocyte (auto) 0.04 0-0.1 [facility] METABOLIC YIIGZ4152-09-34 10:32:00 * Test Item Value Reference Range [...] CA) 8.8 mg/dL 8.5-10.1 N BASIC METABOLIC ANPBT2096-35-53 10:15:00* Test Item Value Reference Range Interpretation [...] CA) mg/dL 8.5-10.1 - XR CHEST 2 Z9083-88-80 10:02:00 FAX: Bonifacio Iyer MD [phone] [place]: O St: REG FAX: Dwain Anderson [phone] Name: COMPA CASAS [facility] [employer] [employer] : 1950 Age/S: 68/F [address] [facility] Unit #: [id number] Loc: [place] [address] Phys: Bonifacio Becerra MD Acct: [id number] Dis Date: Status: REG CLI PHONE #: [phone] Exam Date: 04/01/2019 0945 FAX #: [phone] Reason: 647.33,F41.9,I10,E66.0,J96.11,R05 EXAMS: CPT CODE: [id number] XR CHEST 2 V 23489 HISTORY: R05/I10. AP and lateral view of [...] Bonifacio Becerra MD; Dwain Anderson Technologist: MATTHIAS FANG RT (R) Trnscrd Date/Time/By: 04/01/2019 (1002) : By: [email or web address] Orig Print D/T: S: 04/01/2019 (1009) PAGE 1 Signed Report US CHEST (INCL MEDIASTINUM) 2018-04-05 12:18:00 [facility] [address] [address] Patient Name: COMPA CASAS MR #: [id number] : 1950 Age/Sex: 67/F Req #: [id number] Adm Physician: Ordered by: BONIFACIO BECERRA MD Report #: [id number] Location: Room/Bed: Procedure: [id number] US/US CHEST (INCL MEDIASTIN UM) Exam Date: 04/05/18 Exam Time: 1125 REPORT STATUS: Signed PROCEDURE: US CHEST (INCL MEDIASTINUM) COMPARISON: None. INDICATION: Large left pleural effusion reported by outside imaging. ZACARIAS HNIQUE: Balderas scale color Doppler ultrasound chest PROCEDURE: The patie nt was transferred from an outside facility for thoracentesis given reported large pleural effusion on outside imaging. Quality Assurance Intern ultrasound was performed of the chest. FINDINGS: [...] 04/05/18 1218 COPY TO: BONIFACIO BECERRA MD Phosphorus Qamyd8626-66-49 08:34:00* Test Item Value Reference Range Interpretation Comments Phosphorus Level (test code = VWZ1181) 3.0 2.3-4.7 [facility]odium Acjbt4444-26-86 08:26:00* Test Item Value Reference Range Interpretation Comments Sodium Level (test code = 2951-2) 140 136-145 [facility] CenterPotassium Crwrz2914-67-57 08:26:00* Test Item Value Reference Range Interpretation Comments Potassium Level (test code = 2823-3) 3.3 3.5-5.1 L [facility] CenterChloride Xbrtb6739-79-72 08:26:00* Test Item Value Reference Range Interpretation Comments Chloride Level (test code = 2075-0) 98 98-107 [facility] CenterCarbon Dioxide Ceyge7470-51-22 08:26:00* Test Item Value Reference Range Interpretation Comments Carbon Dioxide Level (test code = 2028-9) 35 22-29 H [facility] CenterAnion Duk9968-32-02 08:26:00* Test Item Value Reference Range Interpretation Comments Anion Gap (test code = 34095-9) 10.3 8-16 [facility] CenterBlood Urea Wfavofqo9063-10-17 08:26:00* Test Item Value Reference Range Interpretation Comments Blood Urea Nitrogen (test code = 3094-0) 32 7-26 H [facility] CenterCreatinine2018-03-22 08:26:00* Test Item Value Reference Range Interpretation Comments Creatinine (test code = 2160-0) 0.54 0.57-1.11 L [facility] CenterBUN/Creatinine Xfuob2498-00-54 08:26:00* Test Item Value Reference Range Interpretation Comments BUN/Creatinine Ratio (test code = 3097-3) 59 6-25 H [facility] CenterEstimat Glomerular Filtration Rate 2018-01-07 08:26:00* Test Item Value Reference Range Interpretation Comments Estimat Glomerular Filtration Rate (test code = 99632-8) 60- >60 Ranges were taken from the National Kidney Disease Education Program and the [facility] Kidney Foundation literature.Reference ranges:60 or greater: Snfqba38-93 ( for 3 consecutive months): Chronic kidney disease 15 or less: Kidney failureMichael E. DeBakey [facility] of [facility] Affairs Medical CenterGlucose Becmp9290-82-68 08:26:00* Test Item Value Reference Range Interpretation Comments Glucose Level (test code = YOQ4225) 183 74-118 H [facility] CenterCalcium Aemhu3818-00-77 08:26:00* Test Item Value Reference Range Interpretation Comments Calcium Level (test code = 64877-6) 8.4 8.4-10.2 [facility] CenterMagnesium Cmuxn7215-49-67 08:26:00* Test Item Value Reference Range Interpretation Comments Magnesium Level (test code = 64416-3) 1.4 1.3-2.1 [facility] CenterBedside Ifrjtfs4227-33-03 00:17:00* Test Item Value Reference Range Interpretation Comments Bedside Glucose (test code = 72772-0) 202 70-120 H Meter ID: [id number] E. [facility] Medical CenterWhite Blood Count 2018-01-05 06:23:00* Test Item Value Reference Range Interpretation Comments White Blood Count (test code = 6690-2) 16.48 4.8-10.8 H [facility] CenterRed Blood Zgnug6996-06-91 06:23:00* Test Item Value Reference Range Interpretation Comments Red Blood Count (test code = 789-8) 3.86 3.6-5.1 [facility] CenterHemoglobin2018-03-20 06:23:00* Test Item Value Reference Range Interpretation Comments Hemoglobin (test code = 93741-3) 10.5 12.0-16.0 L [facility] CenterHematocrit2018-03-20 06:23:00* Test Item Value Reference Range Interpretation Comments Hematocrit (test code = 4544-3) 32.7 34.2-44.1 L [facility] CenterMean Corpuscular Icrtmc4690-93-15 06:23:00* Test Item Value Reference Range Interpretation Comments Mean Corpuscular Volume (test code = 787-2) 84.7 81-99 [facility] CenterMean Corpuscular Uzmklakjir9779-65-86 06:23:00* Test Item Value Reference Range Interpretation Comments Mean Corpuscular Hemoglobin (test code = 785-6) 27.2 28-32 L [facility] CenterMean Corpuscular Hemoglobin Concent 2018-01-05 06:23:00* Test Item Value Reference Range Interpretation Comments Mean Corpuscular Hemoglobin Concent (test code = 786-4) 32.1 31-35 [facility] CenterRed Cell Distribution Fyivc4052-54-55 06:23:00* Test Item Value Reference Range Interpretation Comments Red Cell Distribution Width (test code = 68226-4) 17.2 11.7 -14.4 H [facility] CenterPlatelet Sdwvn0409-72-01 06:23:00* Test Item Value Reference Range Interpretation Comments Platelet Count (test code = 777-3) 196 140-360 [facility] CenterNeutrophils (%) (Auto)2018-01-05 06:23:00 * Test Item Value Reference Range Interpretation Comments Neutrophils (%) (Auto) (test code = 56576-8) 84.7 38.7-80.0 H [facility] CenterLymphocytes (%) (Auto)2018-01-05 06:23:00 * Test Item Value Reference Range Interpretation Comments Lymphocytes (%) (Auto) (test code = 736-9) 6.4 18.0-39.1 L [facility] CenterMonocytes (%) (Auto)2018-01-05 06:23:00* Test Item Value Reference Range Interpretation Comments Monocytes (%) (Auto) (test code = 5905-5) 6.5 4.4-11.3 [facility] CenterEosinophils (%) (Auto)2018-01-05 06:23:00 * Test Item Value Reference Range Interpretation Comments Eosinophils (%) (Auto) (test code = 713-8) 1.8 0.0-6.0 [facility] CenterBasophils (%) (Auto)2018-01-05 06:23:00* Test Item Value Reference Range Interpretation Comments Basophils (%) (Auto) (test code = 706-2) 0.1 0.0-1.0 [facility] CenterIM GRANULOCYTES %2018-01-05 06:23:00* Test Item Value Reference Range Interpretation Comments IM GRANULOCYTES % (test code = IM GRANULOCYTES %) 0.5 0.0- 1.0 [facility] CenterNeutrophils # (Auto)2018-01-05 06:23:00* Test Item Value Reference Range Interpretation Comments Neutrophils # (Auto) (test code = 751-8) 14.0 2.1-6.9 H [facility] CenterLymphocytes # (Auto)2018-01-05 06:23:00* Test Item Value Reference Range Interpretation Comments Lymphocytes # (Auto) (test code = 84875-6) 1.1 1.0-3.2 [facility] CenterMonocytes # (Auto)2018-01-05 06:23:00* Test Item Value Reference Range Interpretation Comments Monocytes # (Auto) (test code = 742-7) 1.1 0.2-0.8 H [facility] CenterEosinophils # (Auto)2018-01-05 06:23:00* Test Item Value Reference Range Interpretation Comments Eosinophils # (Auto) (test code = 711-2) 0.3 0.0-0.4 [facility] CenterBasophils # (Auto)2018-01-05 06:23:00* Test Item Value Reference Range Interpretation Comments Basophils # (Auto) (test code = 704-7) 0.0 0.0-0.1 [facility] CenterAbsolute Immature Granulocyte (auto 2018-01-05 06:23:00* Test Item Value Reference Range Interpretation Comments Absolute Immature Granulocyte (auto (kayla t code = Absolute Immature Granulocyte (auto) 0.09 0-0.1 [facility] CenterGastric Fluid Occult Icymx6388-47-30 05:44:00* Test Item Value Reference Range Interpretation Comments Gastric Fluid Occult Blood (test code = 29729-9) TEST NOT PERFORMED BY REFERENCE LAB; NOT HANDLED PROPERLY BY [facility]oundDifferential Total Cells Counted 2018-01-03 13:57:00* Test Item Value Reference Range Interpretation Comments Differential Total Cells Counted (test code = Differen tial Total Cells Counted) 100 [facility] CenterNeutrophils % (Manual)2018-01-03 13:57:00 * Test Item Value Reference Range Interpretation Comments Neutrophils % (Manual) (test code = 57929-9) 90 40-74 H [facility] CenterBand Neutrophils %2018-01-03 13:57:00* Test Item Value Reference Range Interpretation Comments Band Neutrophils % (test code = 764-1) 1 [facility] CenterLymphocytes % (Manual)2018-01-03 13:57:00 * Test Item Value Reference Range Interpretation Comments Lymphocytes % (Manual) (test code = 737-7) 1 19-48 L [facility] CenterMonocytes % (Manual)2018-01-03 13:57:00* Test Item Value Reference Range Interpretation Comments Monocytes % (Manual) (test code = 744-3) 8 3.4-9.0 [facility] CenterNucleated Red Blood Fvirm4425-24-43 13:57:00* Test Item Value Reference Range Interpretation Comments Nucleated Red Blood Cells (test code = 38105-1) 1 [facility] CenterPlatelet Rzjhhhai2647-80-66 10:11:00* Test Item Value Reference Range Interpretation Comments Platelet Estimate (test code = 70396-5) SLIGHTLY DECREASED [facility] Medical CenterPlatelet Morphology Vlqegen1114-26-08 10:11:00* Test Item Value Reference Range Interpretation Comments Platelet Morphology Comment (test code = 28867-4) NORMAL [facility] CenterRed Cell Morphology Zpthhwn6793-91-10 10:11:00* Test Item Value Reference Range Interpretation Comments Red Cell Morphology Comment (test code = 6742-1) NORMAL [facility] CenterHypochromasia2018-03-16 09:24:00* Test Item Value Reference Range Interpretation Comments Hypochromasia (test code = 728-6) SLIGHT [facility] CenterAnisocytosis2018-03-16 09:24:00* Test Item Value Reference Range Interpretation Comments Anisocytosis (test code = 702-1) SLIGHT [facility] CenterArterial Blood mI8420-81-66 13:36:00* Test Item Value Reference Range Interpretation Comments Arterial Blood pH (test code = 2744-1) 7.49 7.31-7.41 H [facility] CenterArterial Blood Partial Pressure CO2 2017-12-31 13:36:00* Test Item Value Reference Range Interpretation Comments Arterial Blood Partial Pressure CO2 (test code = 2018-) 56 41-51 H [facility] CenterArterial Blood Partial Pressure O2 2017-12-31 13:36:00* Test Item Value Reference Range Interpretation Comments Arterial Blood Partial Pressure O2 (test code = 2019-05) 89 80-105 [facility] CenterArterial Blood QMC62829-54-94 13:36:00* Test Item Value Reference Range Interpretation Comments Arterial Blood HCO3 (test code = 1960-4) 43 23-28 H [facility] CenterArterial Blood Base Cqaggs1401-41-60 13:36:00* Test Item Value Reference Range Interpretation Comments Arterial Blood Base Excess (test code = 1925-7) 19.0 -2-3 H [facility] Medical CenterArterial Blood Oxygen Saturation 2017-12-31 13:36:00* Test Item Value Reference Range Interpretation Comments Arterial Blood Oxygen Saturation (test code = 2708-6) 97.0 95-98 [facility] CenterActivated Partial Thromboplast Time 2017-12-31 06:39:00* Test Item Value Reference Range Interpretation Comments Activated Partial Thromboplast Time (test code = 14180-4) 26.1 23.8-35.5 [facility] CenterProthrombin Mzig3197-03-49 06:36:00* Test Item Value Reference Range Interpretation Comments Prothrombin Time (test code = 5902-2) 15.3 11.9-14.5 H [facility] CenterProthromb Time International Ratio 2017-12-31 06:36:00* Test Item Value Reference Range Interpretation Comments Prothromb Time International Ratio (test code = 6301-6) 1.31 Oral Anticoagulant Therapy INR Values:1. Low Intensity Therapy 1.5 - 2.02 . Moderate Intensity Therapy 2.0 - 3.03. High Intensity Therapy(1) 2.5 - 3. 54. High Intensity Therapy(2) 3.0 - 4.05. Panic Value INR > 5.0 [facility] Hospitaltool Occult Spfxj3852-02-05 13:18:00* Test Item Value Reference Range Interpretation Comments Stool Occult Blood (test code = 2335-8) NEGATIVE NEGATIVE [facility] CenterVancomycin Level Qkdsky6673-94-68 00:02:00* Test Item Value Reference Range Interpretation Comments Vancomycin Level Trough (test code = 4092-3) 16.2 5.0-10.0 HH Results called to KENA rn/icu at 0000 on 12/28/17 by Lindsey Ramirez. RB OK .[facility] CenterAmmonia2018-03-11 12:49:00* Test Item Value Reference Range Interpretation Comments Ammonia (test code = 71445-4) 80 31-123 [facility] CenterBlood Whccscb5673-12-66 17:13:00* Test Item Value Reference Range Interpretation Comments Blood Culture (test code = 79183251) NO GROWTH AFTER 5 DAYS, FINAL REPORT [facility] CenterUrine Legionella Lrnqxcu1993-67-41 08:44:00* Test Item Value Reference Range Interpretation Comments Urine Legionella Antigen (test code = 26853-1) Negative Negativ e Presumptive negative for L. pneumophila serogroup 1 antigenin urine, suggesting no recent or current infection.Legionnaires' disease cannot be ruled out since o therserogroups and species may also cause disease.Performed at: [facility] [address] [place], [place] [address] Director: Andrew restrepo MD, Phone: [phone] E. [facility] of [facility] Medical CenterUrine Creatinine 24 Bkua1638-27-87 00:47:00* Test Item Value Reference Range Interpretation Comments Urine Creatinine 24 Hour (test code = 2162-6) 9681 146-5083 [facility] CenterCreatinine Ljcmpiwkz5112-51-46 00:47:00* Test Item Value Reference Range Interpretation Comments Creatinine Clearance (test code = 42998-9) 69 88-128 L [facility] CenterUrine Collection Bujw1008-96-25 00:43:00 * Test Item Value Reference Range Interpretation Comments Urine Collection Time (test code = 91485-0) 24 [facility] CenterUrine Total Bsfyhl8743-75-52 00:43:00* Test Item Value Reference Range Interpretation Comments Urine Total Volume (test code = 52190-0) 4108 362-9526 [facility] CenterUrine Bfweumbagg1954-74-92 00:43:00* Test Item Value Reference Range Interpretation Comments Urine Creatinine (test code = 2161-8) 107.79 47-110 [facility] Centerp-ANCA Zmckk6474-55-16 16:20:00* Test Item Value Reference Range Interpretation Comments p-ANCA Titer (test code = 68900-9) -1:20 Neg:<1:20 The presence of positive fluorescence exhibiting P-ANCA orC-ANCA patterns alone is not specific for the diagnosis ofWegener's Granulomatosis (WG) or microscopic polyangiitis.Decisions about treatment should not be based solely onANCA IFA re mi. The International ANCA Group Consensusrecommends follow up testing of po sitive sera with both IA-3 and MPO-ANCA enzyme immunoassays. As many as 5% serum samples are positive only by EIA. Ref. AM J Clin Agwfph1441;111:507-513.[facility] Centerc-ANCA Vanbu7719-64-92 16:20:00* Test Item Value Reference Range Interpretation Comments c-ANCA Titer (test code = 77164-8) -1:20 Neg:<1:20 [facility] CenterAtypical l-NNEB4922-26DRYS4946-62-29 16:20:00* Test Item Value Reference Range Interpretation Comments Atypical p-ANCA (test code = 43072-0) 1:40 Neg:<1:20 H The atypical pANCA pattern has been observed in asignificant percentage of patie nts with ulcerative colitis,primary sclerosing cholangitis and autoimmune hepati tis.Performed at: [address] [address]Lab Director: Andrew Ruiz MD, Phone: [phone] E. [facility] Medical CenterChlamydia trachomatis IgM Lqrgwaeh2372-78-03 13:50:00* Test Item Value Reference Range Interpretation Comments Chlamydia trachomatis IgM Antibody (test code = 74273-1) -0.8 0.0-0.7 Negative <0.8 Borderline 0.8 - 1.0 Positive > 1.0Results for this test are for research purposesonly by the assay's manufactur er. The performancecharacteristics of this product have not beenestablished. R esults should not be used as adiagnostic procedure without confirmation of thedi agnosis by another medically established diagnosticproduct or procedure.Performe d at: [facility] [address] [place], [place] [id number] Dire ctor: Andrew Ruiz MD, Phone: [phone] E. [facility] Medical CenterMycoplasma pneumoniae IgG Sakhscac1113-60-35 07:34:00* Test Item Value Reference Range Interpretation [...] ks later showing asignificant increase in antibody levels.[facility] CenterMycoplasma pneumoniae IgM Jswqxhin9887-21-97 07:34:00* Test Item Value Reference Range Interpretation Comments Mycoplasma pneumoniae IgM Antibody (test code = 706966699) -770 0-769 Negative <770Clinically significant amount of M. pneumoniae antibodynot detected. Low Positive 770 - 950M. pneumoniae specific IgM presumptively detected. Itis recommended that another sample be collected 1-2weeks later to assure reactivity. Positive >950Highly significant amount of M. pneumoniae specificIgM antibody detected.Performed at: [facility] CenterQlypscioog[address] [place], [place] [id number] Director: Andrew Ruiz MD, Phone: [phone] E. [facility] Total Gqqmedhqc5185-28-42 06:46:00* Test Item Value Reference Range Interpretation Comments Total Bilirubin (test code = 1975-2) 0.6 0.2-1.2 [facility] Medical CenterAspartate Amino Transf (AST/SGOT) 2017-12-23 06:46:00* Test Item Value Reference Range Interpretation Comments Aspartate Amino Transf (AST/SGOT) (test code = Aspartate Amino Transf (AST/SGOT)) 50 5-34 H [facility] Medical CenterAlanine Aminotransferase (ALT/SGPT) 2017-12-23 06:46:00* Test Item Value Reference Range Interpretation Comments Alanine Aminotransferase (ALT/SGPT) (test code = 1742-6) 23 0-55 [facility] CenterTotal Neotpbv9300-99-51 06:46:00* Test Item Value Reference Range Interpretation Comments Total Protein (test code = 2885-2) 6.0 6.5-8.1 L [facility] CenterAlbumin2018-03-07 06:46:00* Test Item Value Reference Range Interpretation Comments Albumin (test code = 1751-7) 1.7 3.5-5.0 L [facility] CenterGlobulin2018-03-07 06:46:00* Test Item Value Reference Range Interpretation Comments Globulin (test code = 16670-8) 4.3 2.3-3.5 H [facility] CenterAlbumin/Globulin Mutlk1521-04-70 06:46:00 * Test Item Value Reference Range Interpretation Comments Albumin/Globulin Ratio (test code = 1759-0) 0.4 0.8-2.0 L [facility] CenterAlkaline Zdoxrnthbwo1972-98-40 06:46:00* Test Item Value Reference Range Interpretation Comments Alkaline Phosphatase (test code = 6768-6) 82 40-150 [facility] CenterUrine Ovjdiuzmppu8424-13-01 00:23:00* Test Item Value Reference Range Interpretation Comments Urine Eosinophils (test code = 66969-9) NONE SEEN NONE SEEN [facility] CenterUrine Random Total Ctilpvw9187-81-67 00:07:00* Test Item Value Reference Range Interpretation Comments Urine Random Total Protein (test code = 2888-6) 73.9 1-14 H [facility] CenterUrine Random Uqyygq1294-40-09 00:07:00* Test Item Value Reference Range Interpretation Comments Urine Random Sodium (test code = 2955-3) -20 [facility] CenterUrine ZRG1463-01-73 23:54:00* Test Item Value Reference Range Interpretation Comments Urine WBC (test code = 5821-4) 6-10 0-5 H [facility] CenterUrine GBZ2808-71-45 23:54:00* Test Item Value Reference Range Interpretation Comments Urine RBC (test code = 37185-5) 11-20 0-5 H [facility] CenterUrine Gerzthli3433-50-68 23:54:00* Test Item Value Reference Range Interpretation Comments Urine Bacteria (test code = 78877-8) MODERATE NONE H [facility] CenterUrine Epithelial Lakcf9375-33-92 23:54:00 * Test Item Value Reference Range Interpretation Comments Urine Epithelial Cells (test code = 14206-2) RARE NONE [facility] Amorphous Jdrttyab2368-04-34 23:54:00* Test Item Value Reference Range Interpretation Comments Urine Amorphous Sediment (test code = 8246-1) FEW FEW [facility] [facility] CenterUrine Aoslg0528-95-39 23:48:00* Test Item Value Reference Range Interpretation Comments Urine Color (test code = 5778-6) YELLOW YELLOW [facility] CenterUrine Enwtfbw7391-93-27 23:48:00* Test Item Value Reference Range Interpretation Comments Urine Clarity (test code = 06183-7) SL CLOUDY CLEAR [facility] CenterUrine Specific Ygdggjq4992-53-26 23:48:00 * Test Item Value Reference Range Interpretation Comments Urine Specific [place] (test code = 5811-5) 1.020 1.010-1.02 5 [facility] CenterUrine [id number] 23:48:00* Test Item Value Reference Range Interpretation Comments Urine pH (test code = 12832-4) 5 5-7 [facility] CenterUrine Leukocyte Fhyioqod7406-13-42 23:48:00* Test Item Value Reference Range Interpretation Comments Urine Leukocyte Esterase (test code = 5799-2) NEGATIVE NEGATIVE [facility] CenterUrine Uoonzmg7138-41-92 23:48:00* Test Item Value Reference Range Interpretation Comments Urine Nitrite (test code = 50705-0) NEGATIVE NEGATIVE [facility] CenterUrine Isryywy6380-19-07 23:48:00* Test Item Value Reference Range Interpretation Comments Urine Protein (test code = 5804-0) 1+ NEGATIVE H [facility] CenterUrine Glucose (UA)2017-12-22 23:48:00* Test Item Value Reference Range Interpretation Comments Urine Glucose (UA) (test code = 2349-9) NEGATIVE NEGATIVE [facility] CenterUrine Kksruzh9869-76-82 23:48:00* Test Item Value Reference Range Interpretation Comments Urine Ketones (test code = 30131-4) NEGATIVE NEGATIVE [facility] CenterUrine Qvprhcnlvfgz9107-00-66 23:48:00* Test Item Value Reference Range Interpretation Comments Urine Urobilinogen (test code = 61961-1) 1 0.2-1 [facility] CenterUrine Jbecoitfn7076-46-12 23:48:00* Test Item Value Reference Range Interpretation Comments Urine Bilirubin (test code = 1978-6) 1+ NEGATIVE H [facility] CenterUrine Ydhas7527-21-49 23:48:00* Test Item Value Reference Range Interpretation Comments Urine Blood (test code = 51136-1) 4+ NEGATIVE H [facility] CenterChlamydia psittaci IgM Ifheoebz1290-22-54 20:05:00* Test Item Value Reference Range Interpretation Comments Chlamydia psittaci IgM Antibody (test code = 6917-9) -1:10 N eg:<1:10 This test was developed and its performance characteristicsdetermined by [employer] . It has not been cleared or approvedby the Food and Drug Administration. The FDA hasdetermined that such clearance or approval is notnecessary.Performed at: [address] [id number] Director: Andrew Ruiz MD, Phone: [phone] [facility]. [facility] Anti-Nuclear Antibody Pzoaae9897-78-88 13:40:00* Test Item Value Reference Range Interpretation Comments Anti-Nuclear Antibody Screen (test code = 5048-4) Negative . Negative <1:80 Borderline 1:80 Positive > 1:80Performed at: - [facility] [address] [place], [place] [id number] 3Lab Director: Paul Ann MD, Phone: [phone] E. [facility] of [facility] Medical CenterInfluenza Virus Types A,B Opvdzri1080-81-42 11:20:00* Test Item Value Reference Range Interpretation Comments Influenza Virus Types A,B Antigen (test code = 26683-5) NEGATIVE NEGATIVE [facility] CenterBody Fluid Ghdy0920-18-86 18:10:00* Test Item Value Reference Range Interpretation Comments Body Fluid Type (test code = 77823-1) PLEURAL LAVAGE BAL-RMLCHI [facility]Body Fluid Hmnxs3669-51-23 18:10:00* Test Item Value Reference Range Interpretation Comments Body Fluid Color (test code = 6824-7) WHITE [facility] Fluid Xpgdacteil3541-88-69 18:10:00 * Test Item Value Reference Range Interpretation Comments Body Fluid Appearance (test code = 9335-1) CLOUDY [facility] CenterBody Fluid YYU8812-51-67 18:10:00* Test Item Value Reference Range Interpretation Comments Body Fluid WBC (test code = 6743-9) 829 [facility] Fluid MJE3505-91-97 18:10:00* Test Item Value Reference Range Interpretation Comments Body Fluid RBC (test code = 6741-3) 31 [facility] Fluid Kmldqorjmlw0566-89-93 17:43:00 * Test Item Value Reference Range Interpretation Comments Body Fluid Neutrophils (test code = 16752-9) 86 [facility] Fluid Bouoqmqsbfx0838-01-24 17:43:00 * Test Item Value Reference Range Interpretation Comments Body Fluid Lymphocytes (test code = 67546052) 11 [facility] Fluid Nhtvmvozb1860-43-99 17:43:00* Test Item Value Reference Range Interpretation Comments Body Fluid Monocytes (test code = 62553-8) 3 [facility] Fluid Total Cells Udnwboj6478-00-04 17:43:00* Test Item Value Reference Range Interpretation Comments Body Fluid Total Cells Counted (test code = 94690-5) 100 [facility] CenterFerritin2018-03-05 07:26:00* Test Item Value Reference Range Interpretation Comments Ferritin (test code = 2276-4) 780.10 4.63-204.00 H [facility] CenterFree Hnrytzzcq6329-73-32 07:26:00* Test Item Value Reference Range Interpretation Comments Free Thyroxine (test code = 3024-7) 0.94 0.9-1.8 [facility] CenterThyroid Stimulating Hormone (TSH) 2017-12-21 07:26:00* Test Item Value Reference Range Interpretation Comments Thyroid Stimulating Hormone (TSH) (test code = 13773-2) 0.197 0.350-4.940 L [facility] CenterVitamin B12 Nqrys6402-78-73 07:07:00* Test Item Value Reference Range Interpretation Comments Vitamin B12 Level (test code = 96180-3) 103 213-816 L [facility] CenterFolate2018-03-05 07:07:00* Test Item Value Reference Range Interpretation Comments Folate (test code = 2284-8) 5.9 7.0-15.4 L [facility] CenterIron Orgkp3052-29-34 07:06:00* Test Item Value Reference Range Interpretation Comments Iron Level (test code = 2498-4) 19 50-170 L [facility] CenterTotal Iron Binding Rogrhiib8577-51-02 07:06:00* Test Item Value Reference Range Interpretation Comments Total Iron Binding Capacity (test code = 2500-7) 168 261-4 78 L [facility] CenterPercent Iron Ecpamohdbv8488-08-98 07:06:00* Test Item Value Reference Range Interpretation Comments Percent Iron Saturation (test code = 2502-3) 11 15-50 L [facility] CenterTransferrin2018-03-05 07:06:00* Test Item Value Reference Range Interpretation Comments Transferrin (test code = 3034-6) 120 180-382 L [facility] CenterLactic Acid Wwjtc1894-87-49 19:46:00* Test Item Value Reference Range Interpretation Comments Lactic Acid Level (test code = Lactic Acid Level) 8.8 4.5- 19.8 [facility] CenterEosinophils % (Manual)2017-12-19 12:04:00 * Test Item Value Reference Range Interpretation Comments Eosinophils % (Manual) (test code = 714-6) 1 0-7 [facility] CenterBedside Lxzifno2113-44-71 16:56:00* Test Item Value Reference Range Interpretation Comments Bedside Glucose (test code = 74975-0) 110 70-120 Meter ID: [id number] E. [facility] CenterBlood Culture 2017-12-15 22:30:00* Test Item Value Reference Range Interpretation Comments Blood Culture (test code = 22700555) NO GROWTH AFTER 5 DAYS, FINAL REPORT [facility]odium Mpzgk8188-60-06 07:10:00* Test Item Value Reference Range Interpretation Comments Sodium Level (test code = 2951-2) 141 136-145 [facility] CenterPotassium Wpqbd4919-97-48 07:10:00* Test Item Value Reference Range Interpretation Comments Potassium Level (test code = 2823-3) 3.7 3.5-5.1 [facility] CenterChloride Qmfga8413-28-28 07:10:00* Test Item Value Reference Range Interpretation Comments Chloride Level (test code = 2075-0) 105 98-107 [facility] CenterCarbon Dioxide Rhewf2791-35-07 07:10:00* Test Item Value Reference Range Interpretation Comments Carbon Dioxide Level (test code = 2028-9) 26 22-29 [facility] CenterAnion Dbh5169-89-93 07:10:00* Test Item Value Reference Range Interpretation Comments Anion Gap (test code = 81137-4) 13.7 8-16 [facility] CenterBlood Urea Vkzezybx7281-51-11 07:10:00* Test Item Value Reference Range Interpretation Comments Blood Urea Nitrogen (test code = 3094-0) 14 7-26 [facility] CenterCreatinine2018-02-27 07:10:00* Test Item Value Reference Range Interpretation Comments Creatinine (test code = 2160-0) 0.81 0.57-1.11 [facility] CenterBUN/Creatinine Vnioa1682-58-50 07:10:00* Test Item Value Reference Range Interpretation Comments BUN/Creatinine Ratio (test code = 3097-3) 17 6-25 [facility] CenterEstimat Glomerular Filtration Rate 2017-12-15 07:10:00* Test Item Value Reference Range Interpretation Comments Estimat Glomerular Filtration Rate (test code = 83670-2) 60- >60 Ranges were taken from the National Kidney Disease Education Program and the [facility] Foundation literature.Reference ranges:60 or greater: Cnvoej76-86 ( for 3 consecutive months): Chronic kidney disease 15 or less: Kidney failureMichael E. [facility]y [facility] of [facility] Affairs Medical CenterGlucose Xpxyn2948-28-37 07:10:00* Test Item Value Reference Range Interpretation Comments Glucose Level (test code = MKJ5238) 91 74-118 [facility] CenterCalcium Lsdau0233-90-97 07:10:00* Test Item Value Reference Range Interpretation Comments Calcium Level (test code = 75535-9) 9.0 8.4-10.2 [facility] CenterWhite Blood Bggfw4447-36-93 06:57:00* Test Item Value Reference Range Interpretation Comments White Blood Count (test code = 6690-2) 7.80 4.8-10.8 [facility] CenterRed Blood Iwwzi5400-63-68 06:57:00* Test Item Value Reference Range Interpretation Comments Red Blood Count (test code = 789-8) 3.44 3.6-5.1 L [facility] CenterHemoglobin2018-02-27 06:57:00* Test Item Value Reference Range Interpretation Comments Hemoglobin (test code = 05112-4) 9.1 12.0-16.0 L [facility] CenterHematocrit2018-02-27 06:57:00* Test Item Value Reference Range Interpretation Comments Hematocrit (test code = 4544-3) 29.1 34.2-44.1 L [facility] CenterMean Corpuscular Ezljeh4886-70-09 06:57:00* Test Item Value Reference Range Interpretation Comments Mean Corpuscular Volume (test code = 787-2) 84.6 81-99 [facility] CenterMean Corpuscular Rolordqcso6283-33-99 06:57:00* Test Item Value Reference Range Interpretation Comments Mean Corpuscular Hemoglobin (test code = 785-6) 26.5 28-32 L [facility] CenterMean Corpuscular Hemoglobin Concent 2017-12-15 06:57:00* Test Item Value Reference Range Interpretation Comments Mean Corpuscular Hemoglobin Concent (test code = 786-4) 31.3 31-35 [facility] CenterRed Cell Distribution Rpdzy9163-78-63 06:57:00* Test Item Value Reference Range Interpretation Comments Red Cell Distribution Width (test code = 57932-4) 14.6 11.7 -14.4 H [facility] CenterPlatelet Kiivj4280-22-39 06:57:00* Test Item Value Reference Range Interpretation Comments Platelet Count (test code = 777-3) 278 140-360 [facility] CenterNeutrophils (%) (Auto)2017-12-15 06:57:00 * Test Item Value Reference Range Interpretation Comments Neutrophils (%) (Auto) (test code = 57914-2) 66.8 38.7-80.0 [facility] CenterLymphocytes (%) (Auto)2017-12-15 06:57:00 * Test Item Value Reference Range Interpretation Comments Lymphocytes (%) (Auto) (test code = 736-9) 16.3 18.0-39.1 L [facility] CenterMonocytes (%) (Auto)2017-12-15 06:57:00* Test Item Value Reference Range Interpretation Comments Monocytes (%) (Auto) (test code = 5905-5) 9.2 4.4-11.3 [facility] CenterEosinophils (%) (Auto)2017-12-15 06:57:00 * Test Item Value Reference Range Interpretation Comments Eosinophils (%) (Auto) (test code = 713-8) 6.3 0.0-6.0 H [facility] CenterBasophils (%) (Auto)2017-12-15 06:57:00* Test Item Value Reference Range Interpretation Comments Basophils (%) (Auto) (test code = 706-2) 0.8 0.0-1.0 [facility] CenterIM GRANULOCYTES %2017-12-15 06:57:00* Test Item Value Reference Range Interpretation Comments IM GRANULOCYTES % (test code = IM GRANULOCYTES %) 0.6 0.0- 1.0 [facility] CenterNeutrophils # (Auto)2017-12-15 06:57:00* Test Item Value Reference Range Interpretation Comments Neutrophils # (Auto) (test code = 751-8) 5.2 2.1-6.9 [facility] CenterLymphocytes # (Auto)2017-12-15 06:57:00* Test Item Value Reference Range Interpretation Comments Lymphocytes # (Auto) (test code = 23736-7) 1.3 1.0-3.2 [facility] CenterMonocytes # (Auto)2017-12-15 06:57:00* Test Item Value Reference Range Interpretation Comments Monocytes # (Auto) (test code = 742-7) 0.7 0.2-0.8 [facility] CenterEosinophils # (Auto)2017-12-15 06:57:00* Test Item Value Reference Range Interpretation Comments Eosinophils # (Auto) (test code = 711-2) 0.5 0.0-0.4 H [facility] CenterBasophils # (Auto)2017-12-15 06:57:00* Test Item Value Reference Range Interpretation Comments Basophils # (Auto) (test code = 704-7) 0.1 0.0-0.1 [facility] CenterAbsolute Immature Granulocyte (auto 2017-12-15 06:57:00* Test Item Value Reference Range Interpretation Comments Absolute Immature Granulocyte (auto (kayla t code = Absolute Immature Granulocyte (auto) 0.05 0-0.1 [facility] CenterCreatine Kinase [id number] 06:25:00* Test Item Value Reference Range Interpretation Comments Creatine Kinase MB (test code = 57428-2) 0.80 0-5.0 [facility] CenterTroponin [id number] 06:25:00* Test Item Value Reference Range Interpretation Comments Troponin I (test code = NKS8134) 0.007 0-0.300 [facility] CenterCreatine Kinase HX9433-64-18 06:25:00* Test Item Value Reference Range Interpretation Comments Creatine Kinase MB (test code = 69333-7) 0.80 0-5.0 [facility] CenterTroponin K5971-51-14 06:25:00* Test Item Value Reference Range Interpretation Comments Troponin I (test code = PSK8862) 0.007 0-0.300 [facility] CenterTotal Pynzvrkcn5965-29-39 05:58:00* Test Item Value Reference Range Interpretation Comments Total Bilirubin (test code = 1975-2) 0.7 0.2-1.2 [facility] CenterAspartate Amino Transf (AST/SGOT) 2017-12-11 05:58:00* Test Item Value Reference Range Interpretation Comments Aspartate Amino Transf (AST/SGOT) (test code = Aspartate Amino Transf (AST/SGOT)) 19 5-34 [facility] CenterAlanine Aminotransferase (ALT/SGPT) 2017-12-11 05:58:00* Test Item Value Reference Range Interpretation Comments Alanine Aminotransferase (ALT/SGPT) (test code = 1742-6) 11 0-55 [facility] CenterTotal Urwhwxw0727-02-62 05:58:00* Test Item Value Reference Range Interpretation Comments Total Protein (test code = 2885-2) 6.7 6.5-8.1 [facility] CenterAlbumin2018-02-23 05:58:00* Test Item Value Reference Range Interpretation Comments Albumin (test code = 1751-7) 2.5 3.5-5.0 L [facility] CenterGlobulin2018-02-23 05:58:00* Test Item Value Reference Range Interpretation Comments Globulin (test code = 37489-5) 4.2 2.3-3.5 H [facility] CenterAlbumin/Globulin Mzjrq5242-43-16 05:58:00 * Test Item Value Reference Range Interpretation Comments Albumin/Globulin Ratio (test code = 1759-0) 0.6 0.8-2.0 L [facility] CenterAlkaline Nhngdtbijqt2919-99-32 05:58:00* Test Item Value Reference Range Interpretation Comments Alkaline Phosphatase (test code = 6768-6) 77 40-150 [facility] CenterCreatine Wfyysf6655-28-18 05:58:00* Test Item Value Reference Range Interpretation Comments Creatine Kinase (test code = 2157-6) 54 29-168 [facility] CenterCreatine Duijhk2384-32-05 05:58:00* Test Item Value Reference Range Interpretation Comments Creatine Kinase (test code = 2157-6) 54 29-168 [facility] CenterMagnesium Licwx9425-64-94 19:38:00* Test Item Value Reference Range Interpretation Comments Magnesium Level (test code = 13907-3) 1.6 1.3-2.1 [facility] CenterUrine YZI8262-26-86 13:07:00* Test Item Value Reference Range Interpretation Comments Urine WBC (test code = 5821-4) 6-10 0-5 H [facility] CenterUrine ZKF0490-39-98 13:07:00* Test Item Value Reference Range Interpretation Comments Urine RBC (test code = 06980-1) NONE 0-5 [facility] CenterUrine Sivaumyo9227-10-65 13:07:00* Test Item Value Reference Range Interpretation Comments Urine Bacteria (test code = 13125-2) NONE NONE [facility] CenterUrine Epithelial Kxhxh4681-58-17 13:07:00 * Test Item Value Reference Range Interpretation Comments Urine Epithelial Cells (test code = 33743-8) MODERATE NONE [facility] CenterUrine Pjvkg8689-19-38 12:40:00* Test Item Value Reference Range Interpretation Comments Urine Color (test code = 5778-6) YELLOW YELLOW [facility] CenterUrine Qovgtwr2997-21-00 12:40:00* Test Item Value Reference Range Interpretation Comments Urine Clarity (test code = 36027-7) SL CLOUDY CLEAR [facility] CenterUrine Specific Umovado9728-69-80 12:40:00 * Test Item Value Reference Range Interpretation Comments Urine Specific [place] (test code = 5811-5) 1.015 1.010-1.02 5 [facility] CenterUrine kY2632-40-50 12:40:00* Test Item Value Reference Range Interpretation Comments Urine pH (test code = 92334-1) 6 5-7 [facility] CenterUrine Leukocyte Puruzjgw8507-71-34 12:40:00* Test Item Value Reference Range Interpretation Comments Urine Leukocyte Esterase (test code = 5799-2) TRACE NEGATIVE H [facility] Xbmtagy7774-90-13 12:40:00* Test Item Value Reference Range Interpretation Comments Urine Nitrite (test code = 09784-5) NEGATIVE NEGATIVE [facility] CenterUrine Ndezger7529-38-12 12:40:00* Test Item Value Reference Range Interpretation Comments Urine Protein (test code = 5804-0) NEGATIVE NEGATIVE [facility] Glucose (UA)2017-12-10 12:40:00* Test Item Value Reference Range Interpretation Comments Urine Glucose (UA) (test code = 2349-9) NEGATIVE NEGATIVE [facility] CenterUrine Ioznwje9883-75-94 12:40:00* Test Item Value Reference Range Interpretation Comments Urine Ketones (test code = 64236-9) NEGATIVE NEGATIVE [facility] Lnfzxeeglbcl8032-44-11 12:40:00* Test Item Value Reference Range Interpretation Comments Urine Urobilinogen (test code = 87526-0) 4 0.2-1 H [facility] CenterUrine Kwuyuqhgl8328-93-90 12:40:00* Test Item Value Reference Range Interpretation Comments Urine Bilirubin (test code = 1978-6) NEGATIVE NEGATIVE [facility] CenterUrine Ypmxu4338-40-64 12:40:00* Test Item Value Reference Range Interpretation Comments Urine Blood (test code = 33741-1) NEGATIVE NEGATIVE [facility] CenterB-Type Natriuretic Erlptgw8773-11-21 12:31:00* Test Item Value Reference Range Interpretation Comments B-Type Natriuretic Peptide (test code = 05426-1) 91.1 0-100 [facility] CenterB-Type Natriuretic Wnwhcxq1219-63-71 12:31:00* Test Item Value Reference Range Interpretation Comments B-Type Natriuretic Peptide (test code = 92739-6) 91.1 0-100 [facility] CenterD-Dimer Quantitative (PE/DVT)2017-12-10 12:24:00* Test Item Value Reference Range Interpretation Comments D-Dimer Quantitative (PE/DVT) (test code = 25653-1) 2.64 0. 00-0.45 H As with all in vitro diagnostic tests, the test results should be interpreted by the physician in conjunction with clinical findings and other test results.Test results are reported in NEW D-dimer units(ug/mLFEU).[facility] CenterD-Dimer Quantitative (PE/DVT)2017-12-10 12:24:00* Test Item Value Reference Range Interpretation Comments D-Dimer Quantitative (PE/DVT) (test code = 43356-8) 2.64 0. 00-0.45 H As with all in vitro diagnostic tests, the test results should be interpreted by the physician in conjunction with clinical findings and other test results.Test results are reported in NEW D-dimer units(ug/mLFEU).[facility] CenterLactic Acid Wpdic9907-11-43 12:20:00* Test Item Value Reference Range Interpretation Comments Lactic Acid Level (test code = Lactic Acid Level) 9.1 4.5- 19.8 [facility] CenterProthrombin Iqli2766-59-46 12:15:00* Test Item Value Reference Range Interpretation Comments Prothrombin Time (test code = 5902-2) 15.2 11.9-14.5 H [facility] CenterProthromb Time International Ratio 2017-12-10 12:15:00* Test Item Value Reference Range Interpretation Comments Prothromb Time International Ratio (test code = 6301-6) 1.30 Oral Anticoagulant Therapy INR Values:1. Low Intensity Therapy 1.5 - 2.02 . Moderate Intensity Therapy 2.0 - 3.03. High Intensity Therapy(1) 2.5 - 3. 54. High Intensity Therapy(2) 3.0 - 4.05. Panic Value INR > 5.0 [facility] CenterActivated Partial Thromboplast Time 2017-12-10 12:15:00* Test Item Value Reference Range Interpretation Comments Activated Partial Thromboplast Time (test code = 32150-4) 31.1 23.8-35.5 [facility] CenterBedside Tykojlu6462-77-07 12:02:00* Test Item Value Reference Range Interpretation Comments Bedside Glucose (test code = 60642-0) 119 70-120 Meter ID: [id number]. David's Georgetown Hospitalodium Level 2017-11-27 07:58:00* Test Item Value Reference Range Interpretation Comments Sodium Level (test code = 2951-2) 138 136-145 [facility] CenterPotassium Fiywg5362-92-22 07:58:00* Test Item Value Reference Range Interpretation Comments Potassium Level (test code = 2823-3) 3.1 3.5-5.1 L [facility] CenterChloride Bnmhu9087-30-30 07:58:00* Test Item Value Reference Range Interpretation Comments Chloride Level (test code = 2075-0) 103 98-107 [facility] CenterCarbon Dioxide Ohgrs7886-61-73 07:58:00* Test Item Value Reference Range Interpretation Comments Carbon Dioxide Level (test code = 2028-9) 25 22-29 [facility] CenterAnion Dnj0114-23-63 07:58:00* Test Item Value Reference Range Interpretation Comments Anion Gap (test code = 89187-5) 13.1 8-16 [facility] CenterBlood Urea Ruqtwrdr1896-89-39 07:58:00* Test Item Value Reference Range Interpretation Comments Blood Urea Nitrogen (test code = 3094-0) 10 7-26 [facility] CenterCreatinine2018-02-09 07:58:00* Test Item Value Reference Range Interpretation Comments Creatinine (test code = 2160-0) 0.90 0.57-1.11 [facility] CenterBUN/Creatinine Tctas6249-03-60 07:58:00* Test Item Value Reference Range Interpretation Comments BUN/Creatinine Ratio (test code = 3097-3) 11 6-25 [facility] CenterEstimat Glomerular Filtration Rate 2017-11-27 07:58:00* Test Item Value Reference Range Interpretation Comments Estimat Glomerular Filtration Rate (test code = 81467-8) 60- >60 Ranges were taken from the National Kidney Disease Education Program and the [facility] literature.Reference ranges:60 or greater: Dmtxgk37-69 ( for 3 consecutive months): Chronic kidney disease 15 or less: Kidney failureMichael E. DeBakey [facility] of [facility] Medical CenterGlucose Pmqtw7205-83-01 07:58:00* Test Item Value Reference Range Interpretation Comments Glucose Level (test code = HTR5782) 93 74-118 [facility] CenterCalcium Tizig3661-35-73 07:58:00* Test Item Value Reference Range Interpretation Comments Calcium Level (test code = 28200-4) 8.1 8.4-10.2 L [facility] CenterWhite Blood Eymtn0650-36-39 07:29:00* Test Item Value Reference Range Interpretation Comments White Blood Count (test code = 6690-2) 6.47 4.8-10.8 [facility] CenterRed Blood Sdjrv4966-84-99 07:29:00* Test Item Value Reference Range Interpretation Comments Red Blood Count (test code = 789-8) 3.58 3.6-5.1 L [facility] CenterHemoglobin2018-02-09 07:29:00* Test Item Value Reference Range Interpretation Comments Hemoglobin (test code = 45799-5) 9.6 12.0-16.0 L [facility] CenterHematocrit2018-02-09 07:29:00* Test Item Value Reference Range Interpretation Comments Hematocrit (test code = 4544-3) 30.1 34.2-44.1 L [facility] CenterMean Corpuscular Slcxjc0150-62-99 07:29:00* Test Item Value Reference Range Interpretation Comments Mean Corpuscular Volume (test code = 787-2) 84.1 81-99 [facility] CenterMean Corpuscular Ftxblngvzg0943-04-39 07:29:00* Test Item Value Reference Range Interpretation Comments Mean Corpuscular Hemoglobin (test code = 785-6) 26.8 28-32 L [facility] CenterMean Corpuscular Hemoglobin Concent 2017-11-27 07:29:00* Test Item Value Reference Range Interpretation Comments Mean Corpuscular Hemoglobin Concent (test code = 786-4) 31.9 31-35 [facility] CenterRed Cell Distribution Kysht6830-95-41 07:29:00* Test Item Value Reference Range Interpretation Comments Red Cell Distribution Width (test code = 33136-7) 14.1 11.7 -14.4 [facility] CenterPlatelet Pqkhj8075-16-83 07:29:00* Test Item Value Reference Range Interpretation Comments Platelet Count (test code = 777-3) 113 140-360 L [facility] CenterNeutrophils (%) (Auto)2017-11-27 07:29:00 * Test Item Value Reference Range Interpretation Comments Neutrophils (%) (Auto) (test code = 97711-4) 76.9 38.7-80.0 [facility] CenterLymphocytes (%) (Auto)2017-11-27 07:29:00 * Test Item Value Reference Range Interpretation Comments Lymphocytes (%) (Auto) (test code = 736-9) 10.5 18.0-39.1 L [facility] CenterMonocytes (%) (Auto)2017-11-27 07:29:00* Test Item Value Reference Range Interpretation Comments Monocytes (%) (Auto) (test code = 5905-5) 10.8 4.4-11.3 [facility] CenterEosinophils (%) (Auto)2017-11-27 07:29:00 * Test Item Value Reference Range Interpretation Comments Eosinophils (%) (Auto) (test code = 713-8) 1.1 0.0-6.0 [facility] CenterBasophils (%) (Auto)2017-11-27 07:29:00* Test Item Value Reference Range Interpretation Comments Basophils (%) (Auto) (test code = 706-2) 0.2 0.0-1.0 [facility] CenterIM GRANULOCYTES %2017-11-27 07:29:00* Test Item Value Reference Range Interpretation Comments IM GRANULOCYTES % (test code = IM GRANULOCYTES %) 0.5 0.0- 1.0 [facility] CenterNeutrophils # (Auto)2017-11-27 07:29:00* Test Item Value Reference Range Interpretation Comments Neutrophils # (Auto) (test code = 751-8) 5.0 2.1-6.9 [facility] CenterLymphocytes # (Auto)2017-11-27 07:29:00* Test Item Value Reference Range Interpretation Comments Lymphocytes # (Auto) (test code = 48479-7) 0.7 1.0-3.2 L [facility] CenterMonocytes # (Auto)2017-11-27 07:29:00* Test Item Value Reference Range Interpretation Comments Monocytes # (Auto) (test code = 742-7) 0.7 0.2-0.8 [facility] CenterEosinophils # (Auto)2017-11-27 07:29:00* Test Item Value Reference Range Interpretation Comments Eosinophils # (Auto) (test code = 711-2) 0.1 0.0-0.4 [facility] CenterBasophils # (Auto)2017-11-27 07:29:00* Test Item Value Reference Range Interpretation Comments Basophils # (Auto) (test code = 704-7) 0.0 0.0-0.1 [facility] CenterAbsolute Immature Granulocyte (auto 2017-11-27 07:29:00* Test Item Value Reference Range Interpretation Comments Absolute Immature Granulocyte (auto (kayla t code = Absolute Immature Granulocyte (auto) 0.03 0-0.1 [facility] CenterMagnesium Cymso1003-74-13 08:05:00* Test Item Value Reference Range Interpretation Comments Magnesium Level (test code = 59207-0) 1.3 1.3-2.1 [facility] CenterPlatelet Oplvoowj4549-87-01 08:35:00* Test Item Value Reference Range Interpretation Comments Platelet Estimate (test code = 77332-2) SLIGHTLY DECREASED [facility] CenterPlatelet Morphology Imrmgya1257-49-54 08:35:00* Test Item Value Reference Range Interpretation Comments Platelet Morphology Comment (test code = 52385-8) FEW LARGE NO CLUMPING SEEN ON SLIDE. 0835 [facility] CenterAnisocytosis2018-02-07 08:35:00* Test Item Value Reference Range Interpretation Comments Anisocytosis (test code = 702-1) SLIGHT [facility] CenterRed Cell Morphology Wcbnxso2684-73-12 08:35:00* Test Item Value Reference Range Interpretation Comments Red Cell Morphology Comment (test code = 6742-1) NORMAL [facility] CenterPlatelet Tycdwfqg1325-02-78 08:35:00* Test Item Value Reference Range Interpretation Comments Platelet Estimate (test code = 37025-0) SLIGHTLY DECREASED [facility] CenterPlatelet Morphology Tjiwvfq0915-15-84 08:35:00* Test Item Value Reference Range Interpretation Comments Platelet Morphology Comment (test code = 33276-3) FEW LARGE NO CLUMPING SEEN ON SLIDE. 0835 on 11/25/17 [facility] CenterAnisocytosis2018-02-07 08:35:00* Test Item Value Reference Range Interpretation Comments Anisocytosis (test code = 702-1) SLIGHT [facility] CenterRed Cell Morphology Xbvekgq5629-71-50 08:35:00* Test Item Value Reference Range Interpretation Comments Red Cell Morphology Comment (test code = 6742-1) NORMAL [facility] CenterCreatine Kinase AB9236-56-79 16:39:00* Test Item Value Reference Range Interpretation Comments Creatine Kinase MB (test code = 97965-0) 1.20 0.00-5.00 [facility] CenterTroponin R9795-39-45 16:39:00* Test Item Value Reference Range Interpretation Comments Troponin I (test code = 16217-5) 0.009 0-0.300 [facility] CenterCreatine Aghmpr6498-84-02 16:34:00* Test Item Value Reference Range Interpretation Comments Creatine Kinase (test code = 2157-6) 80 29-168 [facility] CenterTotal Qcaqqzdsb9057-51-07 08:21:00* Test Item Value Reference Range Interpretation Comments Total Bilirubin (test code = 1975-2) 0.8 0.2-1.2 [facility] CenterAspartate Amino Transf (AST/SGOT) 2017-11-23 08:21:00* Test Item Value Reference Range Interpretation Comments Aspartate Amino Transf (AST/SGOT) (test code = Aspartate Amino Transf (AST/SGOT)) 22 5-34 [facility] CenterAlanine Aminotransferase (ALT/SGPT) 2017-11-23 08:21:00* Test Item Value Reference Range Interpretation Comments Alanine Aminotransferase (ALT/SGPT) (test code = 1742-6) 12 0-55 [facility] CenterTotal Fpwugui9269-39-70 08:21:00* Test Item Value Reference Range Interpretation Comments Total Protein (test code = 2885-2) 7.4 6.5-8.1 [facility] CenterAlbumin2018-02-05 08:21:00* Test Item Value Reference Range Interpretation Comments Albumin (test code = 1751-7) 3.5 3.5-5.0 [facility] CenterGlobulin2018-02-05 08:21:00* Test Item Value Reference Range Interpretation Comments Globulin (test code = 20966-9) 3.9 2.3-3.5 H [facility] CenterAlbumin/Globulin Uqnju3297-10-05 08:21:00 * Test Item Value Reference Range Interpretation Comments Albumin/Globulin Ratio (test code = 1759-0) 0.9 0.8-2.0 [facility] CenterAlkaline Hgbdhloepqn1241-95-52 08:21:00* Test Item Value Reference Range Interpretation Comments Alkaline Phosphatase (test code = 6768-6) 66 40-150 [facility] CenterLipase2018-02-05 08:21:00* Test Item Value Reference Range Interpretation Comments Lipase (test code = 3040-3) 21 8-78 [facility] CenterLipase2018-02-05 08:21:00* Test Item Value Reference Range Interpretation Comments Lipase (test code = 3040-3) [facility] CenterLipase2018-02-05 08:21:00* Test Item Value Reference Range Interpretation Comments Lipase (test code = 3040-3) [facility] CenterUrine XPG7998-53-60 22:16:00* Test Item Value Reference Range Interpretation Comments Urine WBC (test code = 5821-4) 6-10 0-5 H [facility] CenterUrine JXA4800-48-46 22:16:00* Test Item Value Reference Range Interpretation Comments Urine RBC (test code = 72157-1) 6-10 0-5 H [facility] CenterUrine Aqtdccpv0622-31-98 22:16:00* Test Item Value Reference Range Interpretation Comments Urine Bacteria (test code = 20907-5) FEW NONE [facility] CenterUrine Epithelial Gsdba7550-38-62 22:16:00 * Test Item Value Reference Range Interpretation Comments Urine Epithelial Cells (test code = 13293-5) MODERATE NONE [facility] CenterB-Type Natriuretic Jzmcjkl7520-70-25 20:47:00* Test Item Value Reference Range Interpretation Comments B-Type Natriuretic Peptide (test code = 31394-1) 49.2 0-100 [facility] CenterThyroid Stimulating Hormone (TSH) 2017-11-22 20:47:00* Test Item Value Reference Range Interpretation Comments Thyroid Stimulating Hormone (TSH) (test code = 11147-1) 0.622 0.350-4.940 [facility] CenterThyroid Stimulating Hormone (TSH) 2017-11-22 20:47:00* Test Item Value Reference Range Interpretation Comments Thyroid Stimulating Hormone (TSH) (test code = 50709-7) 0.622 0.350-4.940 [facility] CenterProthrombin Ryos7452-35-03 20:34:00* Test Item Value Reference Range Interpretation Comments Prothrombin Time (test code = 5902-2) 13.3 11.9-14.5 [facility] CenterProthromb Time International Ratio 2017-11-22 20:34:00* Test Item Value Reference Range Interpretation Comments Prothromb Time International Ratio (test code = 6301-6) 0.96 Oral Anticoagulant Therapy INR Values:1. Low Intensity Therapy 1.5 - 2.02 . Moderate Intensity Therapy 2.0 - 3.03. High Intensity Therapy(1) 2.5 - 3. 54. High Intensity Therapy(2) 3.0 - 4.05. Panic Value INR > 5.0 [facility] CenterActivated Partial Thromboplast Time 2017-11-22 20:34:00* Test Item Value Reference Range Interpretation Comments Activated Partial Thromboplast Time (test code = 81732-1) 30.0 23.8-35.5 [facility] CenterUrine Elmml7460-63-71 20:34:00* Test Item Value Reference Range Interpretation Comments Urine Color (test code = 5778-6) YELLOW YELLOW [facility] CenterUrine Rddygce3708-14-18 20:34:00* Test Item Value Reference Range Interpretation Comments Urine Clarity (test code = 10623-0) HAZY CLEAR [facility] CenterUrine Specific Ewtdtrt3305-75-05 20:34:00 * Test Item Value Reference Range Interpretation Comments Urine Specific [place] (test code = 5811-5) 1.025 1.010-1.02 5 [facility] CenterUrine bI8905-40-12 20:34:00* Test Item Value Reference Range Interpretation Comments Urine pH (test code = 35891-2) 5 5-7 [facility] CenterUrine Leukocyte Cfqmdvzw4496-36-53 20:34:00* Test Item Value Reference Range Interpretation Comments Urine Leukocyte Esterase (test code = 5799-2) TRACE NEGATIVE H [facility] CenterUrine Nezgrql9962-01-81 20:34:00* Test Item Value Reference Range Interpretation Comments Urine Nitrite (test code = 87629-8) NEGATIVE NEGATIVE [facility] CenterUrine Zysqbgk5978-91-84 20:34:00* Test Item Value Reference Range Interpretation Comments Urine Protein (test code = 5804-0) NEGATIVE NEGATIVE [facility] CenterUrine Glucose (UA)2017-11-22 20:34:00* Test Item Value Reference Range Interpretation Comments Urine Glucose (UA) (test code = 2349-9) NEGATIVE NEGATIVE [facility] CenterUrine Lqjrswz7389-85-79 20:34:00* Test Item Value Reference Range Interpretation Comments Urine Ketones (test code = 94341-3) NEGATIVE NEGATIVE [facility] CenterUrine Upaetexyjloy5681-48-90 20:34:00* Test Item Value Reference Range Interpretation Comments Urine Urobilinogen (test code = 53463-0) 1 0.2-1 [facility] CenterUrine Zfubtodfo6515-35-45 20:34:00* Test Item Value Reference Range Interpretation Comments Urine Bilirubin (test code = 1978-6) 1+ NEGATIVE H [facility] CenterUrine Ohlpn8148-27-78 20:34:00* Test Item Value Reference Range Interpretation Comments Urine Blood (test code = 37197-6) 1+ NEGATIVE H [facility] CenterLactic Acid Uzirc1906-55-44 20:28:00* Test Item Value Reference Range Interpretation Comments Lactic Acid Level (test code = Lactic Acid Level) 12.3 4.5- 19.8 [facility] CenterAmylase Svdgt1915-47-79 20:28:00* Test Item Value Reference Range Interpretation Comments Amylase Level (test code = 1798-8) 47 25-125 [facility] CenterAmylase Lfgqb2929-80-33 20:28:00* Test Item Value Reference Range Interpretation Comments Amylase Level (test code = 1798-8) 47 25-125 [facility] CenterAmylase Iggrn4031-50-88 20:28:00* Test Item Value Reference Range Interpretation Comments Amylase Level (test code = 1798-8) 47 25-125 [facility] CenterMODIFIED BA. GARY [facility] [address] [address] Patient Name: COMPA CASAS MR #: [id number] : 1950 Age/Sex: 67/F Req #: [id number] Adm Physician: DWAIN ANDERSON MD Ordered by: BONIFACIO BECERRA MD Report #: [id number] Location: ICU Room/Bed: ICU 194 Procedure: [id number] DX/M ODIFIED BA. SWALLOW Exam Date: 01/05/18 [...] at 12:04 Dictated By: DWAIN FISHER MD 03 Transcribed By: SOLO on 01/05/181203 COPY TO: BONIFACIO BECERRA MD CHEST XRAY LINE PLACEMENT [place] [address] Patient Name: COMPA CASAS MR #: [id number] : 1950 Age/Sex: 67/F Req #: [id number] Adm Physician: DWAIN ANDERSON MD Ordered by: BONIFACIO BECERRA MD Report #: [id number] Locati on: ICU Room/Bed: ICU 194 Procedure: [id number] DX/C HEST XRAY LINE PLACEMENT Exam Date: [...] TO: BONIFACIO BECERRA MD CHEST SINGLE (PORTABLE) [place] [address] Patient Name: COMPA CASAS MR #: [id number] : 1950 Age/Sex: 67/F Req #: [id number] Adm Physician: DWAIN ANDERSON MD Ordered by: ROMAN RENTERIA MD Report #: [id number] Location: ICU Room/Bed: ICU 194 Procedure: [id number] DX/CHEST SINGLE (PORTABLE) Exam Date: 01/02/18 Exam [...] TO: ROMAN RENTERIA MD CHEST SINGLE (PORTABLE) [place] [address] Patient Name: COMPA CASAS MR #: [id number] : 1950 Age/Sex: 67/F Req #: [id number] Adm Physician: DWAIN ANDERSON MD Ordered by: ROMAN RENTERIA MD Report #: [id number] Location: ICU Room/Bed: [place] [address] Procedure: [id number] DX/CHEST SINGLE (PORTABLE) Exam Date: 12/31/17 Exam [...] Si gned By: JUANITA MARIE MD on 12/31/17 06 Transcribed By: PHAM on 8 0658 COPY TO: ROMAN RENTERIA MD CHEST SINGLE (PORTABLE) [place] [address] Patient Name: COMPA CASAS MR #: [id number] : 1950 Age/Sex: 67/F Req #: [id number] Adm Physician: DWAIN ANDERSON MD Ordered by: ROMAN RENTERIA MD Report #: [id number] Location: ICU Room/Bed: ICU [facility] Procedure: [id number] DX/CHEST SINGLE (PORTABLE) Exam Date: 12/28/17 Exam Time: 07 40 REPORT STATUS: Signed PROCEDURE: A single AP view of the chest. COMPARISON: [facility], DX, CHEST SINGLE (PORTABLE), 12/28/19 18, 5:03. INDICATIONS: INTUBATED, WITH PNEUMONIA FINDINGS: L neisha/tubes: Endotracheal tube and nasogastric tube present. Right PICC again noted. Lungs: Diffuse pulmonary edema. Pleura: There is no pleural effusion or pneumothorax. Heart and mediastinum: The heart remains enlarge d. Bones: No acute bony abnormality. IMPRESSION: Cardiomegal y with diffuse pulmonary edema not significantly changed. Joesph Mohawk, D.O. Dictated by: Joesph Saravia D.O. on 12/28/2017 at 8:38 Abieli carol approved by: Joesph Saravia D.O. on 12/28/2017 at 8:38 Dictated By: JOESPH SARAVIA DO 08 COPY TO: ROMAN RENTERIA MD CHEST SINGLE (PORTABLE) [place] [address] Patient Name: COMPA CASAS MR #: [id number] : 1950 Age/Sex: 67/F Req #: [id number] Adm Physician: DWAIN ANDERSON MD Ordered by: BONIFACIO BECERRA MD Report #: [id number] Location: ICU Room/Bed: [place] [address] Procedure: [id number] DX/C HEST SINGLE (PORTABLE) Exam Date: 12/27/17 [...] COPY TO: BONIFACIO BECERRA MD ABDOMEN-1VIEW (KUB) [place] [address] Patient Name: COMPA CASAS MR #: [id number] : 1950 Age/Sex: 67/F Req #: [id number] Adm Physician: DWAIN ANDERSON MD Ordered by: DWAIN ANDERSON MD Report #: [id number] Location: ICU Room/Bed: [place] [address] Procedure: [id number] DX/ABDOME N-1VIEW (KUB) Exam Date: 12/27/17 Exam [...] 7:32 AM Dictated By: SIN MORELOS MD 0732 Transcribed By: PHAM on 8 0732 COPY TO: DWAIN ANDERSON MD CHEST SINGLE (PORTABLE) [place] [address] Patient Name: COMPA CASAS MR #: [id number] : 1950 Age/Sex: 67/F Req #: [id number] Adm Physician: DWAIN ANDERSON MD Ordered by: BONIFACIO BECERRA MD Report #: [id number] Locati on: ICU Room/Bed: ICU [facility] Procedure: [id number] DX/C HEST SINGLE (PORTABLE) Exam Date: 12/26/17 [...] MD 1347 Transcr ibed By: PHAM on 12/26/17 1347 COPY TO: BONIFACIO BECERRA MD CHEST SINGLE (PORTABLE) [place] [address] Patient Name: COMPA CASAS MR #: [id number] : 1950 Age/Sex: 67/F Req #: [id number] Adm Physician: DWAIN ANDERSON MD Ordered by: BONIFACIO BECERRA MD Report #: [id number] Location: ICU Room/Bed: ICU [facility] Procedure: [id number] DX/C HEST SINGLE (PORTABLE) Exam Date: 12/26/17 [...] TO: BONIFACIO BECERRA MD CHEST SINGLE (PORTABLE) [facility] [address] [place] [address] Patient Name: COMPA CASAS MR #: [id number] : 1950 Age/Sex: 67/F Req #: [id number] Adm Physician: DWAIN ANDERSON MD Ordered by: BONIFACIO BECERRA MD Report #: [id number] Location: ICU Room/Bed: ICU [facility] Procedure: [id number] DX/C HEST SINGLE (PORTABLE) Exam Date: 12/25/17 [...] TO: BONIFACIO BECERRA MD CHEST SINGLE (PORTABLE) [place] [address] [place] [address] Patient Name: COMPA CASAS MR #: [id number] : 1950 Age/Sex: 67/F Req #: [id number] Adm Physician: DWAIN ANDERSON MD Ordered by: BONIFACIO BECERRA MD Report #: [id number] Location: ICU Room/Bed: [place] [address] Procedure: [id number] DX/C HEST SINGLE (PORTABLE) Exam Date: 12/24/17 Exam Time : 0800 REPORT STATUS: Signed PROCEDURE: CHEST SINGLE (PORTABLE) ZACARIAS HNIQUE: Portable AP chest INDICATION: Pneumonia COMPARISON: [facility], DX, CHEST SINGLE (PORTABLE), 12/23/2017, [...] RUIZ MD 9 Transcribed By: SOLO on 12/24/17839 COPY TO: BONIFACIO CLAYTON MD CHEST SINGLE (PORTABLE) [place] [id number] Patient Name: COMPA CASAS MR #: [id number] : 1950 Age/Sex: 67/F Req #: [id number] Adm Physician: DWAIN ANDERSON MD Ordered by: BONIFACIO BECERRA MD Report #: [id number] Location: ICU Room/Bed: ICU [facility] Procedure: [id number] DX/C HEST SINGLE (PORTABLE) Exam Date: 12/23/17 Exam Time : 05 REPORT STATUS: Signed EXAMINATION: CHEST SINGLE (PORTABLE) [...] TO: BONIFACIO BECERRA MD CHEST SINGLE (PORTABLE) [place] [address] Patient Name: COMPA CASAS MR #: [id number] : 1950 Age/Sex: 67/F Req #: [id number] Adm Physician: DWAIN ANDERSON MD Ordered by: DWAIN ANDERSON MD Report #: [id number] Location: ICU Room/Bed: ICU [facility] Procedure: [id number] DX/CHEST SINGLE (PORTABLE) Exam Date: 12/22/17 Exam Time: 063 0 REPORT STATUS: Signed PROCEDURE: A single AP view of the chest. COMPARISON: [facility], DX, CHEST SINGLE (PORTABLE), 8, 16:03. INDICATIONS: INTUBATED [...] DO 2 Transcri bed By: SOLO on 12/22/1753 COPY TO: DWAIN ANDERSON MD CHEST SINGLE (PORTABLE) [place] [address] Patient Name: COMPA CASAS MR #: [id number] : 1950 Age/Sex: 67/F Req #: [id number] Adm Physician: DWAIN ANDERSON MD Ordered by: BONIFACIO BECERRA MD Report #: [id number] Location: ICU Room/Bed: ICU 194-1 Procedure: [id number] DX/C HEST SINGLE (PORTABLE) Exam Date: 12/21/17 [...] TO: BONIFACIO CLAYTON MD CHEST SINGLE (PORTABLE) [place] [address] Patient Name: COMPA CASAS MR #: [id number] : 1950 Age/Sex: 67/F Req #: [id number] Adm Physician: DWAIN ANDERSON MD Ordered by: ROMAN RENTERIA MD Report #: [id number] Location: ICU Room/Bed: ICU 194-1 Procedure: [id number] DX/CHEST SINGLE (PORTABLE) Exam Date: 12/21/17 Exam [...] 51 AM Dictated By: SHEYLA PRATHER MD 0 Transcribed By: PHAM on 12/21/17550 COPY TO: ROMAN RENTERIA MD CHEST SINGLE (PORTABLE) [place] [address] Patient Name: COMPA CASAS MR #: [id number] : 1950 Age/Sex: 67/F Req #: [id number] Adm Physician: DWAIN ANDERSON MD Ordered by: BONIFACIO BECERRA MD Report #: [id number] Location: ICU Room/Bed: ICU 194-1 Procedure: [id number] DX/C HEST SINGLE (PORTABLE) Exam Date: 12/20/17 [...] BONIFACIO BECERRA MD CHEST XRAY LINE PLACEMENT [place] [address] Patient Name: COMPA CASAS MR #: [id number] : 1950 Age/Sex: 67/F Req #: [id number] Adm Physician: DWAIN ANDERSON MD Ordered by: BONIFACIO BECERRA MD Report #: [id number] Locati on: ICU Room/Bed: ICU 194-1 Procedure: [id number] DX/C HEST XRAY LINE PLACEMENT Exam Date: [...] TO: BONIFACIO BECERRA MD CHEST SINGLE (PORTABLE) [place] [address] Patient Name: COMPA CASAS MR #: [id number] : 1950 Age/Sex: 67/F Req #: [id number] Adm Physician: DWAIN ANDERSON MD Ordered by: BONIFACIO BECERRA MD Report #: [id number] Location: ICU Room/Bed: ICU [facility] Procedure: [id number] DX/C HEST SINGLE (PORTABLE) Exam Date: 12/20/17 [...] MD 104 Anderson scribed By: PHAM on 12/20/171047 COPY TO: BONIFACIO BECERRA MD CHEST SINGLE (PORTABLE) [place] [address] Patient Name: COMPA CASAS MR #: [id number] : 1950 Age/Sex: 67/F Req #: [id number] Adm Physician: DWAIN ANDERSON MD Ordered by: ROMAN RENTERIA MD Report #: [id number] Location: ICU Room/Bed: ICU [facility] Procedure: [id number] DX/CHEST SINGLE (PORTABLE) Exam Date: 12/20/17 Exam [...] TO: ROMAN RENTERIA MD CHEST SINGLE (PORTABLE) [place] [address] Patient Name: COMPA CASAS MR #: [id number] : 1950 Age/Sex: 67/F Req #: [id number] Adm Physician: DWAIN ANDERSON MD Ordered by: ROMAN RENTERIA MD Report #: [id number] Location: ICU Room/Bed: ICU [facility] Procedure: DX/CHEST SINGLE (PORTABLE) Exam Date: 12/19/17 Exam [...] COPY TO: ROMAN RENTERIA MD CT CHEST WO [place] [address] Patient Name: COMPA CASAS MR #: [id number] : 1950 Age/Sex: 67/F Req #: [id number] Adm Physician: DWAIN ANDERSON MD Ordered by: DWAIN ANDERSON MD Report #: [id number] Location: ICU Room/Bed: ICU [facility] Procedure: CT/CT FAY [facility] Exam Date: 12/19/17 Exam Time: 1150 REPO [...] PM Di ctated By: SHELBY GAMING MD 1310 Transcribed By: PHAM on 12/19/17 1310 HEALTH INFORMATION DIRECTOR Y TO: DWAIN ANDERSON MD VQ LUNG SCAN VENT PERFUSION [address], [place], [place] [address] Patient Name: COMPA CASAS MR #: [id number] : 1950 Age/Sex: 67/F Req #: [id number] Adm Physician: DWAIN ANDERSON MD Ordered by: ROMAN RENTERIA MD Report #: [id number] Location: MED/SURG Room/Bed: [facility] Procedure: [id number] NM/VQ L LIZ SCAN VENT PERFUSION Exam [...] TO: ROMAN RENTERIA MD CHEST 2 VIEWS [place] [address] Patient Name: COMPA CASAS MR #: [id number] : 1950 Age/Sex: 67/F Req #: [id number] Adm Physician: DWAIN ANDERSON MD Ordered by: ROMAN RENTERIA MD Report #: [id number] Location: MED/SURG Room/Bed: [facility] Procedure: [id number] DX/CHES T 2 VIEWS Exam Date: 12/16/17 [...] at 11:12 Dictated By: DALE MILES MD 1112 Transcribed By: SOLO on 12/16 1112 COPY TO: ROMAN RENTERIA MD CHEST SINGLE (PORTABLE) [facility] [address] [place] [address] Patient Name: COMPA CASAS MR #: [id number] : 1950 Age/Sex: 67/F Req #: [id number] Adm Physician: DWAIN ANDERSON MD Ordered by: SIMI DUTTA TINNING MACHINE SET UP OPERATOR Report #: [id number] Locat ion: ICU Room/Bed: ICU [facility] Procedure: [id number] DX/ CHEST SINGLE (PORTABLE) Exam Date: 12/11/17 [...] By: SIN MORELOS MD 6 COPY TO: NIHCOLAS DUTTA TINNING MACHINE SET UP OPERATOR CT CHEST W [place] [address] Patient Name: COMPA CAASS MR #: [id number] : 1950 Age/Sex: 67/F Req #: [id number] [facility] Physician: Ordered by: SIMI DUTTA NP Report #: [id number] Location: ER Room/Bed: Procedure: [id number] CT/CT CHEST W Exam Date: 12/10/17 Exam [...] at 16:09 Dictated By: YASMANY PICHARDO MD 1609 Transcribed By: SOLO on 12/10/17 1609 COPY TO: SIMI DUTTA NP CHEST SINGLE (PORTABLE) [place] [address] Patient Name: COMPA CASAS MR #: [id number] : 1950 Age/Sex: 67/F Req #: [id number] Adm Physician: Ordered by: SIMI DUTTA NP Report #: [id number] Location: ER Room/Bed: Procedure: [id number] DX/CHEST SINGLE (PORTABLE) Exam Date: 12/10/17 Exam Time: [address] ATUS: Signed PROCEDURE: A single AP view of the chest. COMPARISON: [facility], DX, CHEST SINGLE (PORTABLE), 11/22/2017, 20:51. I [...] on 12/10/17 1150 COPY TO: SIMI DUTTA TINNING MACHINE SET UP OPERATOR ABDOMEN COMP INCL UPR or DECUB [place] [address] Patient Name: COMPA CASAS MR #: [id number] : 1950 Age/Sex: 67/F Req #: [id number] Adm Physician: ARACELY WHITE MD Ordered by: QUOC HANNAH MD Report #: [id number] Location: MED/SURG3 Room/Bed: 292-1 Procedure: [id number] DX/ABDOMEN COMP INCL UPR [...] 31 COPY TO: QUOC HANNAH MD CHEST SINGLE (PORTABLE) [place] [address] Patient Name: COMPA CASAS MR #: [id number] : 1950 Age/Sex: 67/F Req #: [id number] Adm Physician: Ordered by: MARLENY CHAMBERLAIN TINNING MACHINE SET UP OPERATOR Report #: [id number] Location: ER Room/Bed: Procedure: [id number] DX/CHEST SINGLE (PORTABLE) Exam Date: 11/22/17 Exam [...] PRATHER MD 04 COPY TO: DOTTIE CHAMBERLAIN TINNING MACHINE SET UP OPERATOR CT ABDOMEN/PELVIS [place] [address] Patient Name: COMPA CASAS MR #: [id number] : 1950 Age/Sex: 67/F Req #: [id number] Adm Physician: Ordered by: MARLENY CHAMBERLAIN TINNING MACHINE SET UP OPERATOR Report #: [id number] Location: ER Room/Bed: Procedure: [id number] CT/CT ABDOMEN/PELVIS W Exa m Date: 11/22/17 Exam Time: 2100 REPORT [...] limits set by the Radiation Protocol Co mmittee ([facility]). FINDINGS: LOWER THORAX: Mild right lower lobe [...]
[2020-05-25 20:41] VITALS: BP 109/54
--- NOTE | 2020-05-25 20:41 | NUR ---
RECEIVED REPORT FROM URBAN GRANT NURSE. PATIENT ARRIVED VIA STRETCHER. PATIENT ON OXYGEN AND HAS FLANAGAN. PATIENT IN NO PAIN. CALL LIGHT WITHIN REACH.
[2020-05-25 21:00] VITALS: BP 109/54
[2020-05-25] MEDS ORDERED: BENZONATATE100 MG PO (21:33)
[2020-05-25] MEDS ORDERED: METOLAZONE5 MG PO (21:33)
[2020-05-25] MEDS ORDERED: LEVALBUTER1.25 MG/3 INH (21:33)
[2020-05-25 23:13] LABS: CREATINE KINASE MB 1.7 ng/mL (0-5.0)
[2020-05-26] VITALS (8 sets, daily range): BP systolic 98–130; BP diastolic 63–87
[2020-05-26 05:41] LABS: CREATINE KINASE MB 1.4 ng/mL (0-5.0)
--- NOTE | 2020-05-26 07:06 | NUR ---
GAVE BEDSIDE SHIFT REPORT TO ONCOMING NURSE. CALL LIGHT WITHIN REACH. PATIENT IN BED. HOURLY ROUNDING PERFORMED. FLANAGAN CARE PERFORMED
[2020-05-26] MEDS ORDERED: BENZONATATE 100 MG CAP PO PRN (09:30)
[2020-05-26] MEDS ORDERED: AZITHROMYCIN 250 MG TAB PO ONE (09:30)
[2020-05-26] MEDS ORDERED: LEVALBUTEROL 15 GM AERO IH PRN (09:30)
[2020-05-26] MEDS ORDERED: DEXTROSE 50% SYRINGE 50 ML IV PRN (09:45)
[2020-05-26] MEDS: FAMOTIDINE 20 MG TAB PO SCH (10:18)
[2020-05-26] MEDS: PANTOPRAZOLE SOD 40 MG TABEC PO SCH (10:18)
[2020-05-26] MEDS: CEFTRIAXONE SOD 1 GM/NS 50 ML 50 ML IV SCH ×2 (10:18→21:49)
[2020-05-26] MEDS: SERTRALINE HCL 50 MG TAB PO SCH (10:18)
[2020-05-26] MEDS: FUROSEMIDE INJ 10 MG/ML 4 ML VIAL IV SCH ×2 (10:19→14:12)
[2020-05-26] MEDS: INSULIN LISPRO 100 UNIT/1 ML 3ML VIAL SQ SCH ×3 (11:59→21:00)
[2020-05-26] MEDS ORDERED: SUCRALFATE 1 GM TAB PO ONE (12:00)
--- NOTE | 2020-05-26 12:58 | History and Physical ---
REASON FOR ADMISSION: 1. Persistent shortness of breath. 2. Hypoxia. 3. Morbid obesity. HISTORY OF PRESENT ILLNESS: The patient is a 69-year-old female, gained 10 pounds for the past few weeks. The patient was having increasing shortness of breath. She was hypoxic even with oxygen support, when ambulates the patient's oxygen saturation went down to 70-80%. When she was in the medical office, the patient advised to increase furosemide for few day at 80 mg twice a day along with a short time treatment of Zaroxolyn 5 mg daily for three days. Within 24 hours, however, the patient did not improve, matter of fact, she was worsened, her heart rate dropped down and she got increasing shortness of breath; she came to the emergency room for evaluation. In the emergency room, her white cell count was 10.9 thousand. Her creatinine was 1.4. Her BNP was 319. Cardiac enzyme was negative and imaging chest x-ray that was done in the emergency room even though it was one view portable, it showed that the patient had left greater than right lower lung interstitial and airspace opacity may represent pulmonary interstitial and airspace edema. Was unable to rule out pneumonia. The patient did not have any fever, however. The patient was given IV furosemide. She did not improve, but she did have some diuresis. The patient is admitted for further treatment. CT scan of the chest is ordered. PAST MEDICAL HISTORY: Including morbid obesity. Chronic hypoxia, using oxygen routinely. History of chronic diastolic dysfunction, congestive heart failure. Obstructive sleep apnea. Chronic kidney disease, stage 2 to 3. Diabetes type 2, hypertension, dyslipidemia. History of tracheostomy in the past, that was reversed. History of uterine cancer, status post hysterectomy. PAST SURGICAL HISTORY: Status post hysterectomy. History of tracheostomy with reversal. History of PEG tube feeding with reversal. Abdominal pannus surgery. SOCIAL HISTORY: The patient does not smoke or use alcohol. No regular drug use. She lives at home with her family very well family support. ALLERGIES: NO KNOWN ALLERGIES. HOME MEDICATIONS: The patient was on Zaroxolyn recently for short term treatment. Tessalon Perles p.r.n., Pepcid daily, Lasix 40 mg twice a day, recently increased to 80 mg twice a day, Xopenex nebs. Metoprolol tartrate 25 mg daily, Protonix 40 mg daily, potassium 20 mEq b.i.d., Zoloft 50 mg daily, and Basaglar 10 units at night. PHYSICAL EXAMINATION: VITAL SIGNS: Temperature is 98.4, blood pressure 118/67, pulse rate was 22, nasal cannula 3 L/minute, and saturation is 92%. GENERAL: The patient is resting, not in any distress. HEENT: Normocephalic and atraumatic. She is anicteric. NECK: Supple grossly. PULMONARY: Bilateral rales and coarse is at the bases. CARDIOVASCULAR: S1, S2. Regular rate and rhythm. ABDOMEN: Soft, morbidly obese. EXTREMITIES: 1+ edema. NEUROLOGIC: No focal deficit. Moving all extremities. LABORATORY DATA: Sodium is 139, potassium 3.8, chloride 95, bicarb 32, BUN is 20, creatinine 1.4, and glucose is 217. BNP was 319. WBC 10.9, hemoglobin 13, hematocrit 45, and platelet is 223. Chest x-ray bibasilar infiltrate versus pulmonary edema, although is only one-view x-ray, however. IMPRESSION: 1. Hmnxv-jk-ptlpaat diastolic dysfunction, congestive heart failure associated with early pulmonary edema. 2. Possible bibasilar pneumonia, need to consider COVID PUI. 3. Morbidly obesity. 4. Oxygen dependency with acute hypoxia even with oxygen support. 5. Obstructive sleep apnea baseline with pulmonary hypertension. PLAN: Continue to treat this patient. Oxygen support. IV furosemide. COVID-19 PUI. Serology PCR is still pending. Start the patient on empiric antibiotic Rocephin and azithromycin. Resume some home medication. DVT prophylaxis with Lovenox. CT chest without contrast. Cough medication. We will resume some home medication, insulin sliding scale coverage, and monitor this patient closely. I would not start the patient on steroids as yet unless she has a positive COVID-19 test. This will prevent increase in blood sugar since the patient does have controlled diabetes on a very low dose of Basaglar and diabetic diet at home. We will continue to monitor this patient closely. MD ARNOLD Steele/MODL /[id number]
[2020-05-26 14:46] LABS: CREATINE KINASE MB 1.4 ng/mL (0-5.0)
[2020-05-26] MEDS: POTASSIUM CHLORIDE 10MEQ EA PO SCH (17:24)
[2020-05-26] MEDS: ENOXAPARIN SOD INJ 40 MG/0.4 ML SYR SC SCH (17:24)
--- NOTE | 2020-05-26 17:42 | Diagnostic Imaging Report ---
EXAM: CT Chest WITHOUT contrast 05/26/2020 10:12 AM INDICATION: Chest pain. Pneumonia. CHF. COMPARISON: 10/12/2019. TECHNIQUE: Chest was scanned utilizing a multidetector helical scanner from the lung apex through the level of the adrenal glands without administration of IV contrast. Absence of intravenous contrast decreases sensitivity for detection of lymphadenopathy and vascular pathology. Coronal and sagittal reformations were obtained. Routine protocol was performed. IV CONTRAST: None RADIATION DOSE: Total DLP: 823.18 mGy*cm Estimated effective dose: (DLP x 0.014 x size factor) mSv COMPLICATIONS: None FINDINGS: LINES/ TUBES: None. LUNGS AND AIRWAYS: Redemonstration of patchy groundglass densities associated with thickening of the pulmonary interstitium with traction bronchiectasis involving particularly the left upper lobe and bilateral lower lobes consistent with interstitial lung disease, unchanged. No superimposed consolidation. PLEURA: The pleural spaces are clear. HEART AND MEDIASTINUM: The thyroid gland is normal. No mediastinal, hilar or axillary lymphadenopathy. The heart is mildly enlarged.. There is no pericardial effusion. There are mild atherosclerotic calcifications in the aorta and coronary arteries. Enlarged pulmonary trunk measuring 3.8 cm in diameter. UPPER ABDOMEN: Limited non-contrast views of the upper abdomen show cholelithiasis.. The adrenal glands are normal. BONES: The visualized bony thorax is within normal limits. SOFT TISSUES: Unremarkable. IMPRESSION: No significant interval change in interstitial lung disease/pulmonary fibrosis (NSIP) without superimposed consolidation. Signed by: Dr. Paul Jackson M.D. on 05/26/2020 5:38 PM
--- NOTE | 2020-05-26 19:30 | NUR ---
BEDSIDE SHIFT REPORT RECEIVED FROM DAY RN. PT IS ALERT AND ORIENTED X3. LUNGS CLEAR.SL 20G IN RT RT FOREARM.PT DENIES PAIN CALL LIGHT WITHIN REACH. BED IN LOW POSITION.
[2020-05-26] MEDS ORDERED: SODIUM CHLORIDE 0.9% 250ML 250 ML ONE (21:48)
[2020-05-27] VITALS (8 sets, daily range): BP systolic 109–123; BP diastolic 52–87
[2020-05-27 06:22] LABS: BASOPHILS # (AUTO) 0.1 (0.0-0.1); BASOPHILS % 0.9 % (0.0-1.0); EOSINOPHILS # (AUTO) 0.2 (0.0-0.4); EOSINOPHILS % 1.8 % (0.0-6.0); HEMOGLOBIN 12.6 g/dL (12.0-16.0); LYMPHOCYTES # (AUTO) 1.4 (1.0-3.2); LYMPHOCYTES % 11.9 % (18.0-39.1); MEAN CORPUSCULAR HEMOGLOBIN 21.6 pg (28-32); MEAN CORPUSCULAR HGB CONC 28.6 g/dL (31-35); MEAN CORPUSCULAR VOLUME 75.6 fL (81-99); MONOCYTES % 8.8 % (4.4-11.3); NEUTROPHILS # (AUTO) 8.7 (2.1-6.9); NEUTROPHILS % 76.2 % (38.7-80.0); PLATELET COUNT 218 x10e3/uL (140-360); RED BLOOD COUNT 5.82 x10e6/uL (3.6-5.1); RED CELL DISTRIBUTION WIDTH 17.8 % (11.7-14.4)
[2020-05-27 06:33] LABS: ANION GAP 16.7 mmol/L (8-16); CALCIUM 8.9 mg/dL (8.4-10.2); CREATININE, SERUM 1.42 mg/dL (0.57-1.11)
[2020-05-27 07:25] LABS: POTASSIUM 2.7 mmol/L (3.5-5.1)
[2020-05-27] MEDS: INSULIN LISPRO 100 UNIT/1 ML 3ML VIAL SQ SCH ×4 (07:30→21:00)
[2020-05-27] MEDS: LEVALBUTEROL HCL SOLN NEBU 1.25 MG/3 ML NEB INH SCH ×3 (07:36→18:23)
[2020-05-27] MEDS: CEFTRIAXONE SOD 1 GM/NS 50 ML 50 ML IV SCH ×2 (09:14→21:53)
[2020-05-27] MEDS: PANTOPRAZOLE SOD 40 MG TABEC PO SCH (09:14)
[2020-05-27] MEDS: FUROSEMIDE INJ 10 MG/ML 4 ML VIAL IV SCH ×2 (09:14→12:50)
[2020-05-27] MEDS: FAMOTIDINE 20 MG TAB PO SCH (09:14)
[2020-05-27] MEDS: SERTRALINE HCL 50 MG TAB PO SCH (09:14)
[2020-05-27] MEDS: POTASSIUM CHLORIDE 10MEQ EA PO SCH ×2 (09:14→16:46)
[2020-05-27] MEDS: AZITHROMYCIN 250 MG TAB PO SCH (09:14)
[2020-05-27] MEDS ORDERED: POTASSIUM CHLORIDE 20MEQ/100ML 100 ML IV ONE (09:20)
[2020-05-27] MEDS ORDERED: POTASSIUM CHLORIDE 10MEQ EA PO ONE ×2 (09:30→14:00)
[2020-05-27 11:37] LABS: ANISOCYTOSIS SLIGHT; HYPOCHROMASIA SLIGHT; OVALOCYTES FEW; POIKILOCYTOSIS SLIGHT
[2020-05-27 11:38] LABS: PLATELET ESTIMATE ADEQUATE; PLATELET MORPHOLOGY COMMENT FEW EDTA CLUMPING; RBC MORPHOLOGY COMMENT ABNORMAL
[2020-05-27] MEDS: ENOXAPARIN SOD INJ 40 MG/0.4 ML SYR SC SCH (16:46)
--- NOTE | 2020-05-27 19:30 | NUR ---
BEDSIDE SHIFT REPORT RECEIVED FROM DAY RN. PT IS ALERT AND ORIENTED X3. PT SITTING UP IN CHAIR AT BEDSIDE. TELE ON. RESPIRATIONS ARE EVEN AND UNLABORED. O2 ON 4L PER N/C. NO COUGH NOTED. PT DENIES PAIN. 20 G SL IN LEFT FA. SITE HEALTHY. FLANAGAN CATHETER DRAINING CLEAR YELLOW URINE. CALL LIGHT WITHIN REACH. BED LOCKED AND IN LOW POSITION.
[2020-05-28] VITALS: BP 113/75
--- NOTE | 2020-05-28 02:00 | NUR ---
Pt was asleep, missed neb treatment
[2020-05-28 04:00] VITALS: BP 115/61
[2020-05-28 05:56] LABS: ANION GAP 13.2 mmol/L (8-16); CALCIUM 8.5 mg/dL (8.4-10.2); CREATININE, SERUM 1.31 mg/dL (0.57-1.11); POTASSIUM 3.2 mmol/L (3.5-5.1)
[2020-05-28 06:45] LABS: MAGNESIUM 2.1 MG/DL (1.3-2.1); PHOSPHORUS 3.7 MG/DL (2.3-4.7)
--- NOTE | 2020-05-28 07:01 | NUR ---
BEDSIDE SHIFT REPORT RECEIVED FROM PM NURSE. PT IN STABLE CONDITION. WILL CONTINUE TO MONITOR.
[2020-05-28] MEDS: INSULIN LISPRO 100 UNIT/1 ML 3ML VIAL SQ SCH (07:30)
[2020-05-28 07:39] VITALS: BP 106/75
[2020-05-28] MEDS: LEVALBUTEROL HCL SOLN NEBU 1.25 MG/3 ML NEB INH SCH ×2 (08:00→14:15)
[2020-05-28 08:06] VITALS: BP 106/75
[2020-05-28] MEDS ORDERED: POTASSIUM CHLORIDE 10MEQ EA PO SCH (09:00)
[2020-05-28] MEDS: POTASSIUM CHLORIDE 10MEQ EA PO SCH (10:54)
[2020-05-28] MEDS: FAMOTIDINE 20 MG TAB PO SCH (10:54)
[2020-05-28] MEDS: SERTRALINE HCL 50 MG TAB PO SCH (10:55)
[2020-05-28] MEDS: AZITHROMYCIN 250 MG TAB PO SCH (10:55)
[2020-05-28] MEDS: PANTOPRAZOLE SOD 40 MG TABEC PO SCH (10:55)
[2020-05-28] MEDS: FUROSEMIDE INJ 10 MG/ML 4 ML VIAL IV SCH (10:56)
[2020-05-28] MEDS: CEFTRIAXONE SOD 1 GM/NS 50 ML 50 ML IV SCH (10:56)
--- NOTE | 2020-05-28 11:03 | Discharge Summary ---
EXPECTED DISCHARGE DATE: 05/29/2020 PRIMARY CARE PHYSICIAN: Dr. Dwain Tinajero. FINAL DIAGNOSES: 1. Acute on chronic diastolic dysfunction, congestive heart failure exacerbation. 2. Acute on chronic exacerbation of pulmonary fibrosis, interstitial lung disease. 3. Morbid obesity associated with obstructive sleep apnea and pulmonary hypertension. 4. Electrolyte disorder, hyponatremia and hypokalemia corrected. SUMMARY: The patient is a 69-year-old female failed outpatient treatment. Increasing the furosemide for fluid retention. The patient gained approximately 10-15 pounds and came into the office with increasing shortness of breath. The patient was told to increase her diuretic, but she maintained with hypoxia. Therefore, the patient came to the emergency room for evaluation and subsequently admitted for treatment. The patient did receive aggressive diuresis with furosemide. Electrolyte diminished due to the aggressiveness and low potassium was subsequently replaced. The patient is otherwise stable. She is more comfortable. She is walking. She is on oxygen baseline at home, oxygen dependent. She also had a CPAP at home as well. Discussed with the patient regarding compliance to fluid intake and restriction when needed and that increase in furosemide if needed at home. All instructions given previously and now. The patient is stable. She will go home today. Diet will be ADA diabetic diet. Fluid restriction discussed extensively previously. Activity as tolerated. Resume home medication. We will hold off the metoprolol and Zaroxolyn for now. She will follow up with me in approximately one week. MD ARNOLD Steele/MODL /[id number]
[2020-05-28 11:35] VITALS: BP 106/55
--- NOTE | 2020-05-28 11:35 | NUR ---
carballo removed per MD order. tip intact. pt tolerated well.
--- NOTE | 2020-05-28 14:54 | NUR ---
CALL FROM COMPA AT [facility] PH: [phone] FAX: [phone] CHOICE LETTER SIGNED BY PT FOR [facility] NO ORDER FOR HOME HEALTH CARE COMPA ASKED THAT I FAX CLINICAL FAXED CLINICAL INFORMATION TO [phone]; CONFIRMATION REC'D IMM EXPLAINED TO PT, SIGNED BY PT AND PLACED IN CHART COPY OF IMM TO PT IN CARE TRANSITIONS FOLDER
== END 2020-05-28 15:10 | disposition home or self-care (01) | DRG 291 ==
LOC: ER 13:20 → ERHOLD 15:03 → MED/SURG 21:18 → OBSVTOIN 05-26 09:35
PROVIDERS: ADMIT Internal Medicine; ATTEND Internal Medicine
DX: I11.0 Hypertensive heart disease with heart failure (principal); J18.9 Pneumonia, unspecified organism; E87.1 Hypo-osmolality and hyponatremia; Z68.43 Body mass index [BMI] 50.0-59.9, adult; I50.33 Acute on chronic diastolic (congestive) heart failure; J84.10 Pulmonary fibrosis, unspecified; E66.01 Morbid (severe) obesity due to excess calories; E87.6 Hypokalemia; E87.8 Other disorders of electrolyte and fluid balance, not elsewhere classified; R09.02 Hypoxemia; Z99.81 Dependence on supplemental oxygen; G47.33 Obstructive sleep apnea (adult) (pediatric); Z11.59 Encounter for screening for other viral diseases
CPT/HCPCS: 36415; 71045; 71250; 80048; 80053; 81001; 82550; 82553; 82948; 83735; 83880; 84100; 84484; 85025; 93005; 94640; 99284; G0378; J0696; J1650; J1940; J3480; J7050; U0002

== ENCOUNTER 2020-08-07 16:33 | Inpatient (IN) | payer MEDICARE, OTHER ==
[~2020-08-07] VITALS: Ht 149.9 cm; Wt 122.9 kg
[~2020-08-07 16:33] MED LIST changes: +BENZONATATE100 MG PO; +LEVALBUTER1.25 MG/3 INH; +METOLAZONE5 MG PO
[2020-08-07] MEDS ORDERED: ASPIRIN 81 MG CHEW TAB PO ONE (17:00)
[2020-08-07 17:21] LABS: BASOPHILS # (AUTO) 0.1 (0.0-0.1); BASOPHILS % 0.6 % (0.0-1.0); EOSINOPHILS # (AUTO) 0.2 (0.0-0.4); EOSINOPHILS % 2.1 % (0.0-6.0); HEMATOCRIT 41.7 % (34.2-44.1); HEMOGLOBIN 12.1 g/dL (12.0-16.0); LYMPHOCYTES # (AUTO) 1.4 (1.0-3.2); LYMPHOCYTES % 12.8 % (18.0-39.1); MEAN CORPUSCULAR HEMOGLOBIN 22.4 pg (28-32); MEAN CORPUSCULAR VOLUME 77.4 fL (81-99); MONOCYTES # (AUTO) 0.9 (0.2-0.8); MONOCYTES % 7.9 % (4.4-11.3); NEUTROPHILS # (AUTO) 8.4 (2.1-6.9); NEUTROPHILS % 76.1 % (38.7-80.0); PLATELET COUNT 254 x10e3/uL (140-360); RED BLOOD COUNT 5.39 x10e6/uL (3.6-5.1); RED CELL DISTRIBUTION WIDTH 18.6 % (11.7-14.4)
[2020-08-07 17:43] LABS: ALBUMIN 3.5 g/dL (3.5-5.0); ALBUMIN/GLOBULIN RATIO 0.9 (0.8-2.0); ANION GAP 13.6 mmol/L (8-16); CALCIUM 8.6 mg/dL (8.4-10.2); CREATININE, SERUM 1.45 mg/dL (0.57-1.11); POTASSIUM 3.6 mmol/L (3.5-5.1)
[2020-08-07 17:51] LABS: CREATINE KINASE MB 1.9 ng/mL (0-5.0)
[2020-08-07] MEDS ORDERED: SODIUM CHLORIDE 0.9% 500ML 500 ML IV STA (18:08)
[2020-08-07] MEDS ORDERED: SODIUM CHLORIDE 0.9% 50ML 50 ML ONE (18:56)
[2020-08-07] MEDS ORDERED: IOPAMIDOL 370 MG/ML 200 ML INFUS..BTL INJ ONE (18:57)
[2020-08-07] MEDS ORDERED: SODIUM CHLORIDE FLUSH 10 ML SYR INJ PRN (19:45)
[2020-08-07] MEDS ORDERED: DEXTROSE 50% SYRINGE 50 ML IV PRN (19:45)
[2020-08-07] MEDS: INSULIN REGULAR, HUMAN 100 UNIT/1 ML 3ML VIAL SQ SCH (21:00)
[2020-08-07 21:40] VITALS: BP 129/80
[2020-08-07 22:30] VITALS: BP 129/80
[2020-08-08] VITALS (8 sets, daily range): BP systolic 97–132; BP diastolic 68–84
[2020-08-08 06:19] LABS: CREATINE KINASE MB 2.4 ng/mL (0-5.0)
[2020-08-08] MEDS: FUROSEMIDE INJ 10 MG/ML 4 ML VIAL IV SCH ×2 (09:28→17:01)
[2020-08-08] MEDS: INSULIN REGULAR, HUMAN 100 UNIT/1 ML 3ML VIAL SQ SCH ×4 (09:30→21:00)
[2020-08-08] MEDS: CEFTRIAXONE SOD 1 GM/NS 50 ML 50 ML IV SCH (11:30)
[2020-08-08] MEDS ORDERED: SODIUM CHLORIDE 0.9% 250ML 250 ML ONE (11:35)
[2020-08-08] MEDS: AZITHROMYCIN 500MG/NS 250 ML 250 ML IV SCH (12:30)
[2020-08-08 13:26] LABS: CREATINE KINASE MB 2.5 ng/mL (0-5.0)
[2020-08-08] MEDS: ENOXAPARIN SOD INJ 40 MG/0.4 ML SYR SC SCH (17:01)
[2020-08-08] MEDS: POTASSIUM CHLORIDE 10MEQ EA PO SCH (17:02)
[2020-08-08 18:28] LABS: % IRON SATURATION 6 % (15-50); IRON 25 ug/dL (50-170); TOTAL IRON BINDING CAPACITY 417 ug/dL (261-478); TRANSFERRIN 298 mg/dL (180-382)
[2020-08-08] MEDS ORDERED: IRON SUCROSE 100 MG in SODIUM CHLORIDE 0.9% 100 ML 100 ML IV SCH (20:45)
[2020-08-09] VITALS (7 sets, daily range): BP systolic 102–126; BP diastolic 60–94
[2020-08-09] MEDS: IPRATROPIUM BROMIDE 0.02% 2.5 ML NEB NEB SCH ×5 (01:00→19:45)
[2020-08-09 05:19] LABS: BASOPHILS # (AUTO) 0.1 (0.0-0.1); BASOPHILS % 0.6 % (0.0-1.0); EOSINOPHILS # (AUTO) 0.3 (0.0-0.4); EOSINOPHILS % 3.1 % (0.0-6.0); HEMATOCRIT 39.9 % (34.2-44.1); HEMOGLOBIN 11.5 g/dL (12.0-16.0); LYMPHOCYTES # (AUTO) 1.3 (1.0-3.2); MEAN CORPUSCULAR HEMOGLOBIN 22.5 pg (28-32); MEAN CORPUSCULAR HGB CONC 28.8 g/dL (31-35); MEAN CORPUSCULAR VOLUME 78.1 fL (81-99); MONOCYTES # (AUTO) 0.8 (0.2-0.8); MONOCYTES % 8.1 % (4.4-11.3); NEUTROPHILS # (AUTO) 7.3 (2.1-6.9); NEUTROPHILS % 74.9 % (38.7-80.0); PLATELET COUNT 192 x10e3/uL (140-360); RED BLOOD COUNT 5.11 x10e6/uL (3.6-5.1)
[2020-08-09 05:40] LABS: ANION GAP 13.3 mmol/L (8-16); CALCIUM 8.7 mg/dL (8.4-10.2); CREATININE, SERUM 1.12 mg/dL (0.57-1.11); POTASSIUM 3.3 mmol/L (3.5-5.1)
[2020-08-09 06:23] LABS: ANISOCYTOSIS SLIGHT; HYPOCHROMASIA SLIGHT; PLATELET ESTIMATE ADEQUATE; PLATELET MORPHOLOGY COMMENT NORMAL; RBC MORPHOLOGY COMMENT NORMAL
[2020-08-09 06:24] LABS: OVALOCYTES FEW
[2020-08-09] MEDS: INSULIN REGULAR, HUMAN 100 UNIT/1 ML 3ML VIAL SQ SCH ×4 (07:30→21:00)
[2020-08-09] MEDS: BENZONATATE 100 MG CAP PO PRN ×2 (08:30→17:14)
[2020-08-09] MEDS: IRON SUCROSE 100 MG in SODIUM CHLORIDE 0.9% 100 ML 100 ML IV SCH (08:59)
[2020-08-09] MEDS: FAMOTIDINE 20 MG TAB PO SCH (09:00)
[2020-08-09] MEDS: PANTOPRAZOLE SOD 40 MG TABEC PO SCH (09:00)
[2020-08-09] MEDS: POTASSIUM CHLORIDE 10MEQ EA PO SCH ×5 (09:00→17:13)
[2020-08-09] MEDS: INSULIN GLARGINE 100 UNITS/ML VIAL SC SCH (09:00)
[2020-08-09] MEDS: FUROSEMIDE INJ 10 MG/ML 4 ML VIAL IV SCH ×2 (10:48→17:13)
[2020-08-09] MEDS: CEFTRIAXONE SOD 1 GM/NS 50 ML 50 ML IV SCH (11:57)
[2020-08-09] MEDS: AZITHROMYCIN 500MG/NS 250 ML 250 ML IV SCH (12:30)
[2020-08-09] MEDS: SERTRALINE HCL 50 MG TAB PO SCH (13:11)
[2020-08-09] MEDS: ENOXAPARIN SOD INJ 40 MG/0.4 ML SYR SC SCH (17:13)
[2020-08-10] VITALS (7 sets, daily range): BP systolic 108–129; BP diastolic 58–76
[2020-08-10] MEDS: IPRATROPIUM BROMIDE 0.02% 2.5 ML NEB NEB SCH ×4 (01:15→19:30)
[2020-08-10 05:33] LABS: ALBUMIN/GLOBULIN RATIO 0.9 (0.8-2.0); ANION GAP 14.6 mmol/L (8-16); CALCIUM 8.5 mg/dL (8.4-10.2); CHOL/HDL RATIO 3.7 (3.0-3.6); CREATININE, SERUM 1.14 mg/dL (0.57-1.11); POTASSIUM 3.6 mmol/L (3.5-5.1)
[2020-08-10 05:57] LABS: THYROID STIMULATING HORMONE 1.955 uIU/mL (0.350-4.940)
[2020-08-10] MEDS: INSULIN REGULAR, HUMAN 100 UNIT/1 ML 3ML VIAL SQ SCH ×4 (07:30→21:00)
[2020-08-10] MEDS: FUROSEMIDE INJ 10 MG/ML 4 ML VIAL IV SCH ×2 (09:10→17:06)
[2020-08-10] MEDS: IRON SUCROSE 100 MG in SODIUM CHLORIDE 0.9% 100 ML 100 ML IV SCH (09:10)
[2020-08-10] MEDS: SERTRALINE HCL 50 MG TAB PO SCH (09:11)
[2020-08-10] MEDS: FAMOTIDINE 20 MG TAB PO SCH (09:11)
[2020-08-10] MEDS: POTASSIUM CHLORIDE 10MEQ EA PO SCH ×2 (09:11→17:06)
[2020-08-10] MEDS: PANTOPRAZOLE SOD 40 MG TABEC PO SCH (09:11)
[2020-08-10] MEDS: INSULIN GLARGINE 100 UNITS/ML VIAL SC SCH (09:32)
[2020-08-10] MEDS: CEFTRIAXONE SOD 1 GM/NS 50 ML 50 ML IV SCH (10:30)
[2020-08-10] MEDS: AZITHROMYCIN 500MG/NS 250 ML 250 ML IV SCH (11:24)
[2020-08-10] MEDS: ENOXAPARIN SOD INJ 40 MG/0.4 ML SYR SC SCH (17:06)
[2020-08-11] VITALS (7 sets, daily range): BP systolic 107–116; BP diastolic 63–81
[2020-08-11] MEDS: IPRATROPIUM BROMIDE 0.02% 2.5 ML NEB NEB SCH ×4 (01:20→19:42)
[2020-08-11 05:08] LABS: BASOPHILS # (AUTO) 0.1 (0.0-0.1); BASOPHILS % 0.8 % (0.0-1.0); EOSINOPHILS # (AUTO) 0.3 (0.0-0.4); HEMATOCRIT 43.3 % (34.2-44.1); HEMOGLOBIN 12.4 g/dL (12.0-16.0); LYMPHOCYTES # (AUTO) 1.3 (1.0-3.2); LYMPHOCYTES % 15.9 % (18.0-39.1); MEAN CORPUSCULAR HEMOGLOBIN 22.5 pg (28-32); MEAN CORPUSCULAR HGB CONC 28.6 g/dL (31-35); MEAN CORPUSCULAR VOLUME 78.4 fL (81-99); MONOCYTES # (AUTO) 0.6 (0.2-0.8); MONOCYTES % 7.7 % (4.4-11.3); NEUTROPHILS # (AUTO) 5.9 (2.1-6.9); NEUTROPHILS % 71.4 % (38.7-80.0); PLATELET COUNT 197 x10e3/uL (140-360); RED BLOOD COUNT 5.52 x10e6/uL (3.6-5.1); RED CELL DISTRIBUTION WIDTH 18.4 % (11.7-14.4)
[2020-08-11 05:27] LABS: ANION GAP 12.6 mmol/L (8-16); CALCIUM 8.4 mg/dL (8.4-10.2); CREATININE, SERUM 1.12 mg/dL (0.57-1.11); POTASSIUM 3.6 mmol/L (3.5-5.1)
[2020-08-11] MEDS: INSULIN REGULAR, HUMAN 100 UNIT/1 ML 3ML VIAL SQ SCH ×4 (07:30→20:24)
[2020-08-11] MEDS: INSULIN GLARGINE 100 UNITS/ML VIAL SC SCH (09:00)
[2020-08-11] MEDS: FUROSEMIDE INJ 10 MG/ML 4 ML VIAL IV SCH ×2 (09:08→17:29)
[2020-08-11] MEDS: POTASSIUM CHLORIDE 10MEQ EA PO SCH ×2 (09:09→17:28)
[2020-08-11] MEDS: FAMOTIDINE 20 MG TAB PO SCH (09:09)
[2020-08-11] MEDS: PANTOPRAZOLE SOD 40 MG TABEC PO SCH (09:09)
[2020-08-11] MEDS: SERTRALINE HCL 50 MG TAB PO SCH (09:10)
[2020-08-11] MEDS: IRON SUCROSE 100 MG in SODIUM CHLORIDE 0.9% 100 ML 100 ML IV SCH (09:17)
[2020-08-11] MEDS ORDERED: ALPRAZOLAM 0.25 MG TAB PO PRN (11:30)
[2020-08-11] MEDS: CEFTRIAXONE SOD 1 GM/NS 50 ML 50 ML IV SCH (11:53)
[2020-08-11] MEDS: AZITHROMYCIN 500MG/NS 250 ML 250 ML IV SCH (11:57)
[2020-08-11] MEDS: BUSPIRONE HCL 5 MG TAB PO SCH ×2 (12:05→17:29)
[2020-08-11] MEDS: ENOXAPARIN SOD INJ 40 MG/0.4 ML SYR SC SCH (17:29)
[2020-08-11] MEDS: LEVALBUTEROL HCL SOLN NEBU 1.25 MG/3 ML NEB INH PRN (19:42)
[2020-08-12] VITALS (7 sets, daily range): BP systolic 101–113; BP diastolic 60–93
[2020-08-12] MEDS: IPRATROPIUM BROMIDE 0.02% 2.5 ML NEB NEB SCH ×3 (01:58→19:40)
[2020-08-12] MEDS: LEVALBUTEROL HCL SOLN NEBU 1.25 MG/3 ML NEB INH PRN (01:58)
[2020-08-12] MEDS: INSULIN REGULAR, HUMAN 100 UNIT/1 ML 3ML VIAL SQ SCH ×4 (07:30→20:58)
[2020-08-12] MEDS: BUSPIRONE HCL 5 MG TAB PO SCH ×2 (08:52→17:00)
[2020-08-12] MEDS: INSULIN GLARGINE 100 UNITS/ML VIAL SC SCH (08:52)
[2020-08-12] MEDS: FAMOTIDINE 20 MG TAB PO SCH (08:52)
[2020-08-12] MEDS: SERTRALINE HCL 50 MG TAB PO SCH (08:52)
[2020-08-12] MEDS: PANTOPRAZOLE SOD 40 MG TABEC PO SCH (08:52)
[2020-08-12] MEDS: FUROSEMIDE INJ 10 MG/ML 4 ML VIAL IV SCH ×2 (08:52→17:00)
[2020-08-12] MEDS: POTASSIUM CHLORIDE 10MEQ EA PO SCH ×2 (08:59→17:00)
[2020-08-12] MEDS: CEFTRIAXONE SOD 1 GM/NS 50 ML 50 ML IV SCH (11:00)
[2020-08-12] MEDS: AZITHROMYCIN 500MG/NS 250 ML 250 ML IV SCH (11:30)
[2020-08-12] MEDS: ENOXAPARIN SOD INJ 40 MG/0.4 ML SYR SC SCH (17:00)
[2020-08-13] MEDS: IPRATROPIUM BROMIDE 0.02% 2.5 ML NEB NEB SCH ×2 (01:27→06:40)
[2020-08-13 01:51] VITALS: BP 103/63
[2020-08-13 05:08] VITALS: BP 142/48
[2020-08-13] MEDS: INSULIN REGULAR, HUMAN 100 UNIT/1 ML 3ML VIAL SQ SCH ×2 (07:30→11:30)
[2020-08-13 08:06] VITALS: BP 93/64
[2020-08-13 08:41] VITALS: BP 93/64
[2020-08-13] MEDS: BUSPIRONE HCL 5 MG TAB PO SCH (08:45)
[2020-08-13] MEDS: FAMOTIDINE 20 MG TAB PO SCH (08:45)
[2020-08-13] MEDS: SERTRALINE HCL 50 MG TAB PO SCH (08:45)
[2020-08-13] MEDS: PANTOPRAZOLE SOD 40 MG TABEC PO SCH (08:45)
[2020-08-13] MEDS: FUROSEMIDE INJ 10 MG/ML 4 ML VIAL IV SCH (08:45)
[2020-08-13] MEDS: INSULIN GLARGINE 100 UNITS/ML VIAL SC SCH (09:00)
[2020-08-13] MEDS: POTASSIUM CHLORIDE 10MEQ EA PO SCH (09:00)
[2020-08-13] MEDS ORDERED: [UNRECOGNIZED DRUG - OTHER] PO (10:20)
[2020-08-13] MEDS: CEFTRIAXONE SOD 1 GM/NS 50 ML 50 ML IV SCH (11:00)
[2020-08-13] MEDS: AZITHROMYCIN 500MG/NS 250 ML 250 ML IV SCH (11:30)
== END 2020-08-13 11:49 | disposition home or self-care (01) | DRG 291 ==
LOC: ER 17:11 → ERHOLD 19:58 → OBSVTOIN 19:58 → MED/SURG2 22:02
PROVIDERS: ADMIT Internal Medicine; ATTEND Internal Medicine
DX: I11.0 Hypertensive heart disease with heart failure (principal); J15.9 Unspecified bacterial pneumonia; J80 Acute respiratory distress syndrome; Z68.43 Body mass index [BMI] 50.0-59.9, adult; I50.23 Acute on chronic systolic (congestive) heart failure; J84.10 Pulmonary fibrosis, unspecified; Z99.81 Dependence on supplemental oxygen; E66.01 Morbid (severe) obesity due to excess calories; I50.33 Acute on chronic diastolic (congestive) heart failure; G47.33 Obstructive sleep apnea (adult) (pediatric); Z85.42 Personal history of malignant neoplasm of other parts of uterus; Z11.59 Encounter for screening for other viral diseases; I27.20 Pulmonary hypertension, unspecified; F32.9 Major depressive disorder, single episode, unspecified; Z20.828 Contact with and (suspected) exposure to other viral communicable diseases
CPT/HCPCS: 36415; 71045; 71046; 71260; 80048; 80053; 80061; 82550; 82553; 82948; 83540; 83880; 84443; 84466; 84484; 85025; 85379; 93005; 93306; 94640; 96360; 97139; 99285; J0456; J0696; J1650; J1756; J1817; J1940; J7050; Q9967; U0002

== ENCOUNTER 2020-09-01 17:04 | Inpatient (IN) | payer MEDICARE, OTHER ==
[~2020-09-01] VITALS: Ht 149.9 cm; Wt 54.0 kg
[~2020-09-01 17:04] MED LIST changes: +[UNRECOGNIZED DRUG - OTHER] PO
--- OUTSIDE RECORDS SUMMARY | 2020-09-01 17:26 | XMS REPORT | Continuity of Care Document ---
Author Author [facility] Organization [facility] Address [address] [place] [address] Phone Unavailable Care Team Providers Care Coarse Wire Drawer Name Role Phone MD DWAIN ANDERSON MD PCP DWAIN ANDERSON Attphys Unavailable ARACELY WHITE Attphys Unavailable BONIFACIO BECERRA Attphys Unavailable DWAIN ANDERSON Admphys Unavailable ARACELY WHITE Admphys Unavailable Payers Payer Name Policy Type Policy Number Effective Date Expiration Date Will rucker [employer] [id number] 2019 00:00:00 [facility] Medicare A & B [id number] 2013 00:00:00 [facility] [employer] [id number] 2017 00:00:00 [facility] [employer] [id number] 2017 00:00:00 [facility] Problems Condition Name Condition Details Condition Category Status Onset Date Resolution Date Last Treatment Date Treating Clinician Comments Source Small bowel obstruction SBO (small bowel obstruction) Problem Active [facility] Umbilical hernia Umbilical hernia Problem Active [facility] Vomiting Vomiting Problem Active [facility] Atypical pneumonia Atypical pneumonia Problem Active [facility] Pulmonary embolism Pulmonary embolism Problem Active [facility] Sepsis Sepsis Problem Active [facility] Pneumonia Pneumonia Problem Active [facility] Healthcare-associated pneumonia Problem Active [facility] Chest pain Problem Active [facility] Allergies, Adverse Reactions, Alerts Allergy Name Allergy Type Status Severity Reaction(s) Onset Date Inacti ve Date Treating Clinician Comments Source No Known Allergies DA Active U 2019-07-05 00:00:00 [facility] No Known Allergies DA Active U 2013-04-10 00:00:00 [facility] Social History Social Habit Start Date Stop Date Quantity Comments Source Sex Assigned At 1950 00:00:00 1950 00[birth year]:00 Female [facility] Medications Ordered Medication Name Filled Medication Name Start Date Stop Da te Current Medication? Ordering Clinician Indication Dosage Frequency Signature (SIG) Comments Components Source Baskarolynlyndsey Mortonaglar Yes 10 Daily [facility] Benzonatate Benzonatate Yes 100 As Needed [facility] Famotidine Famotidine Yes 40 Daily [facility] Furosemide Furosemide Yes 40 Twice A Day [facility] Levalbuterol Hcl Levalbuterol Hcl Yes 1.25 Every 4 Hours [facility] Pantoprazole Sodium (Protonix) 40 Mg TABLET. Pantopr azole Sodium (Protonix) 40 Mg TABLET. Yes 40 Daily [facility] Potassium Chloride (K Dur*) 10 Meq TABCR Potassium Chl oride (K Dur*) 10 Meq TABCR Yes 20 Twice A Day [facility] Sertraline Hcl (Zoloft) 50 Mg TABLET Sertraline Hcl (Zoloft) 50 Mg TABLET Yes 50 Daily [facility] Metolazone Metolazone 2020-05-28 00:00:00 No 5 Kiah ly [facility] Metoprolol Tartrate Metoprolol Tartrate 2020-05-28 00:00:00 No 25 Daily [facility] Fluconazole Fluconazole 2019-10-18 00:00:00 No 100 D aily [facility] Guaifenesin/Codeine Phosphate (Guaifenesin-Codeine Liq uid) 118 Ml LIQUID Guaifenesin/Codeine Phosphate (Guaifenesin-Codeine Liquid) 118 Ml LIQUID 2019-10-11 00:00:00 No 5 Every 4 Hours as nee ded for Cough [facility] Furosemide (Lasix) 40 Mg TABLET Furosemide (Lasix) 40 Mg TABLET 2019-09-10 00:00:00 No 20 Daily [facility] Tramadol Hcl (Ultram) 50 Mg TABLET Tramadol Hcl (Ultram) 50 Mg T ABLET 2019-07-22 00:00:00 No 50 Every 6 Ho urs as needed for Moderate Pain (4-6) [facility] Aspirin Aspirin 2018-01-06 00:00:00 No Daily [facility] Atenolol Atenolol 2018-01-06 00:00:00 No 100 Daily [facility] Metformin Hcl Metformin Hcl 2018-01-06 00:00:00 No 500 Twice A Day [facility] Oxybutynin Chloride Oxybutynin Chloride 2018-01-06 00:00:00 No 5 Twice A Day [facility] Sertraline Hcl Sertraline Hcl 2018-01-06 00:00:00 No 50 Daily [facility] Simvastatin Simvastatin 2018-01-06 00:00:00 No 20 T mayda At 9:00PM [facility] Enalapril Maleate (Vasotec) 10 Mg TABLET Enalapril Mal eate (Vasotec) 10 Mg TABLET 2017-12-16 00:00:00 No 20 Daily [facility] Vital Signs Vital Name Observation Time Observation Value Comments Source Body Temperature 2020-05-28 11:35:00 98.4 [degF] [facility] BMI (Body Mass Index) 2020-05-25 21:00:00 52.7 kg/m2 [facility] Weight 2020-05-25 13:35:00 279 [lb_av] [facility] Procedures Procedure Date / Time Performed Performing Clinician Sour e Computed tomography of chest without contrast 2020-05-26 00:00:0 0 [facility] Computed tomography of chest without contrast 2019-10-12 00:00:0 0 DWAIN ANDERSON [facility] X-ray of chest, two views 2019-09-08 00:00:00 KANNAN DELCID [facility] Computed tomography of chest without contrast 2019-09-08 00:00:0 0 DWAIN ANDERSON [facility] Plan of Care Planned Activity Planned Date Details Comments Source Instructions Atrial Fibrillation [facility] Encounters Start Date/Time End Date/Time [facility] Source 2020-05-26 09:35:00 2020-05-28 15:10:00 Discharged Inpatient 1 DWAIN ANDERSON [facility] [id number] [facility] 2019-10-11 13:20:00 2019-10-18 12:21:00 Discharged Inpatient 1 MONICA [facility] [id number] [facility] 2019-09-08 00:11:00 2019-09-10 17:11:00 Discharged Inpatient 1 ARACELY WHITE [facility] [id number] [facility] 2019-07-20 00:36:00 2019-07-25 11:45:00 Discharged Inpatient 1 ARACELY WHITE [facility] [id number] [facility] 2019-06-24 12:26:00 2019-06-24 12:26:00 Registered Clinic [facility] [id number] [facility] 2019-06-12 19:21:00 2019-06-12 20:30:00 Departed Emergency Room [facility] [id number] [facility] 2017-12-10 20:11:00 2018-01-07 10:52:00 Discharged Inpatient ER DWAIN ANDERSON [facility] [id number] [facility] 2017-11-22 23:03:00 2017-11-27 18:47:00 Discharged Inpatient ER ARACELY WHITE [facility] [id number] [facility] Results Test Description Test Time Test Comments Results Result Comments Source CHEST 2 VIEWS 2020-08-12 08:33:00 [facility] 1950 Sex: [place] [address] Patient Name: COMPA CASAS MR #: [id number] : 1950 Age/Sex: 70/F Req #: [id number] [facility] Physician: DWAIN ANDERSON MD Ordered by: DWAIN ANDERSON MD Report #: [id number] Location: MED/SURG2 Room[facility]Bed: [facility] Procedure: [id number] DX/CHEST 2 VIEWS Exam Date: 08/12/20 Exam Time: 0640 REPORT STATUS: Signed EXAMINATION: CHEST 2 VIEWS INDICATION: Follow-up CHF COMPARISON: Multiple prior chest x-rays including most recent on 08/07/2020. Chest CT on 08/07/2020. FINDINGS: TUBES and LINES: None. LUNGS: Redemonstration of diffuse interstitial and airspace opacities, slightly improved in the left lower lobe. PLEURA: No pleural effusion or pneumothorax. HEART AND MEDIASTINUM: The cardiomediastinal silhouette is enlarged. BONES AND SOFT TISSUES: Degenerative changes in the spine and shoulders. Soft tissues are unremarkable. UPPER ABDOMEN: No free air under the diaphragm. IMPRESSION: Redemonstration of diffuse interstitial and airspace opacities, slightly improved in the left lower lobe. Signed by: Michelet Mcdonald MD on 08/12/2020 8:49 AM Dictated By: MICHELET MCDONALD MD 8 Transcribed By: PHAM on 08/12/20848 COPY TO: DWAIN ANDERSON MD CT CHEST W 2020-08-07 19:13:00 [facility] : 1950 Sex: F [place] [address] Patient Name: COMPA CASAS MR #: [id number] : 1950 Age/Sex: 70/F Req #: [id number] Adm Physician: Ordered by: MARLENY ANDERSON DO Report #: [id number] Location: Room/Bed: Procedure: [id number] CT/CT CHEST W Exam Date: 08/07/20 Exam Time: 1900 REPORT STATUS: Signed EXAM: CT Chest WITH contrast 08/07/2020 7:00 PM INDICATION: COMPARISON: Same day chest radiograph. CT of the chest on 05/26/2020 TECHNIQUE: Chest was scanned utilizing a multidetector helical scanner from the lung apex through the level of the adrenal glands with administration of IV contrast. Coronal and sagittal reformations were obtained. Routine protocol was performed. IV CONTRAST: 100 mL of Omnipaque 300 COMPLICATIONS: None RADIATION DOSE: Total DLP: 513 mGy*cm Estimated effective dose: (DLP x 0.014 x size factor) mSv CTDIvol has been reviewed. It is below the limits set by the Radiation Protocol Committee (RPC). Dose modulation, iterative reconstruction, and/or weight based adjustment of the mA/kV was utilized to reduce the radiation dose to as low as reasonably achievable. FINDINGS: Vascular: There are no filling defects within the pulmonary arteries to the segmental level. The pulmonary trunk is dilated measuring 3.7 cm. The ascending and descending aorta have normal caliber measuring 3.4 cm and 2.5 cm, respectively. There is mild atherosclerotic calcification at the thoracic aortic arch and its branch vessels. LINES/ TUBES: None. LUNGS AND AIRWAYS: There is diffuse patchy groundglass opacity and diffuse interlobular septal thickening. There is redemonstration of traction bronchiectasis most pronounced in the left upper and bilateral lung bases, findings consistent with interstitial lung disease. Airways are normal. PLEURA: The pleural spaces are clear. HEART AND MEDIASTINUM: The thyroid gland is normal. There are enlarged prevascular lymph nodes measuring up to 1.4 cm in short axis. There are also enlarged pretracheal and subcarinal lymph nodes as before. The heart is moderately enlarged. There is no pericardial effusion. There are mild atherosclerotic calcifications in the aorta and coronary arteries. UPPER ABDOMEN: There are large gallstones, measuring up to 2 cm. No evidence of cholecystitis. There is mild to moderate atherosclerotic calcification of the proximal abdominal aorta and its branch vessels. The remainder of the imaged upper abdomen is within normal limits for technique. BONES: There are degenerative changes in the thoracic spine. SOFT TISSUES: Unremarkable. IMPRESSION: 1. No evidence of pulmonary embolism to the segmental level. The pulmonary trunk is dilated measuring up to 3.7 cm, suggestive of pulmonary arterial hypertension. 2. Diffuse patchy groundglass opacities and interlobular septal thickening with redemonstration of traction bronchiectasis most pronounced in the left upper and bilateral lung bases. Findings are most consistent with chronic interstitial lung disease with superimposed pulmonary edema. 3. Cardiomegaly. 4. Cholelithiasis without evidence of cholecystitis. Signed by: Michelet Mcdonald MD on 08/07/2020 7:24 PM Dictated By: MICHELET MCDONALD MD 23 Transcribed By: PHAM on 08/07/201923 COPY TO: MARLENY ANDERSON DO CHEST SINGLE (PORTABLE) 2020-08-07 18:01:00 [facility] CENTERName: COMPA CAS[facility] : 1950 Sex: F [place] [address] Patient Name: COMPA CASAS MR #: [id number] : 1950 Age/Sex: 70/F Req #: [id number] Adm Physician: Ordered by: MARLENY ANDERSON DO Report #: [id number] Location: Room/Bed: Procedure: [id number] DX/CHEST SINGLE (PORTABLE) Exam Date: 08/07/20 Exam Time: 1721 REPORT STATUS: Signed EXAMINATION: CHEST SINGLE (PORTABLE) INDICATION: Shortness of breath. COMPARISON: Multiple prior chest radiographs including most recent on 05/25/2020. CT of the chest on 05/26/2020. FINDINGS: TUBES and LINES: None. LUNGS: Normal lung volumes. There is diffuse interstitial prominence in multifocal patchy airspace opacities, left greater than right. These findings are slightly worsened when compared to most recent prior chest radiograph. PLEURA: No pleural effusion or pneumothorax. HEART AND MEDIASTINUM: The cardiomediastinal silhouette is obscured by lung opacities described above. BONES AND SOFT TISSUES: No acute osseous lesion. Soft tissues are unremarkable. UPPER ABDOMEN: No free air under the diaphragm. IMPRESSION: Slight interval worsening of diffuse interstitial prominence in multifocal patchy airspace opacities, left more to right. Constellation of findings most likely represent combination of chronic interstitial lung disease with probable superimposed multifocal pneumonia or pulmonary edema. Signed by: Michelet Mcdonald MD on 08/07/2020 6:04 PM Dictated By: MICHELET MCDONALD MD 03 Transcribed By: HPAM on 08/07/201803 COPY TO: MARLENY ANDERSON DO - CT CHEST W/O CONTRAST 2020-07-05 11:37:00 Na me: COMPA CASAS [facility] : 1950 Age/S: 69 / F [address] Unit #: [id number] Loc: [place] [address] Phys: Bonifacio Becerra MD Acct: [id number] Dis Date: Status: REG CLI PHONE #: [phone] Exam Date: 07/05/2020 1102 FAX #: [phone] Reason: EXAMS: CPT CODE: [id number] CT CHEST W/O CONTRAST 96509 HISTORY: Unspecified asthma and acute exacerbation. COMPARISON: CT chest from August 16, 2018. Location: [facility]. CT chest without contrast: Automated exposure control. Worsening groundglass opacities when compared to the previous examination. This is seen in both upper and lower lobes bilaterally. Scarring and thickening of the entire interlobular septa with upper lobe predominance. No honeycombing or fibrosis. This is highly suggestive of hypersensitivity pneumonitis. No consolidation or effusion or congestion. No endobronchial lesions are noted. Normal caliber unopacified aorta. Mildly dilated main pulmonary artery trunk may suggest pulmonary arterial hypertension. Unremarkable thyroid glands. Esophageal wall is not thickened. Shotty adenopathy. No pathologic lymphadenopathy. Moderate cardiomegaly without pericardial effusion. Visualized upper abdomen is unremarkable. The subcutaneous tissues and the musculature are normal in appearance. No lytic or blastic lesions are noted within the bony skeleton. IMPRESSION: Worsening groundglass opacities bilaterally with scarring and thickening of the inter and interlobular septa bilaterally suggestive of worsening hypersensitivity pneumonitis. No fibrosis and honeycombing or bronchiectasis. No acute infiltrates, effusion or congestion. at 1137 Reported and signed by: Dillon Armendariz M.D. CC: Bonifacio Becerra MD; Dwain Anderson Technologist:Valentín Mullins RT(R),(MR),(CT) CTDI: DLP: Trnscb Date/Time: 07/05/2020 (1137) t.SDR.TH4 Orig Print D/T: S: 07/05/2020 (7825) PAGE 1 Signed Report Capillary blood glucose measurement by glucometer (mas s/volume) 2020-05-28 11:20:00 Test Item Bedside Glucose (test code = 28953-2) 144 70-120 Meter ID: [id number] Regional Medical Centererum or plasma sodium measurement (moles/volume)2020-05-28 05:07:00* Test Item Value Reference Range Interpretation Comments Sodium Level (test code = 2951-2) 139 136-145 [facility] potassium measurement (moles/volume)2020-05-28 05:07:00* Test Item Value Reference Range Interpretation Comments Potassium Level (test code = 2823-3) 3.2 3.5-5.1 [facility] plasma chloride measurement (moles/volume)2020-05-28 05:07:00* Test Item Value Reference Range Interpretation Comments Chloride Level (test code = 2075-0) 92 98-107 [facility]rum or plasma carbon dioxide, total measurement (moles/volume)2020-05-28 05:07:00* Test Item Value Reference Range Interpretation Comments Carbon Dioxide Level (test code = 2028-9) 37 22-29 [facility] or plasma anion [id number] 05:07:00* Test Item Value Reference Range Interpretation Comments Anion Gap (test code = 65339-2) 13.2 8-16 [facility] plasma urea nitrogen measurement (mass/volume)2020-05-28 05:07:00* Test Item Value Reference Range Interpretation Comments Blood Urea Nitrogen (test code = 3094-0) 35 7-26 [facility] or plasma creatinine measurement (mass/volume)2020-05-28 05:07:00* Test Item Value Reference Range Interpretation Comments Creatinine (test code = 2160-0) 1.31 0.57-1.11 [facility]rum or plasma urea nitrogen/creatinine mass [id number] 05:07:00* Test Item Value Reference Range Interpretation Comments BUN/Creatinine Ratio (test code = 3097-3) 27 6-25 [facility] glomerular filtration rate (GFR) hrdvtaepaxxgy5429-16-13 05:07:00* Test Item Value Reference Range Interpretation Comments Estimat Glomerular Filtration Rate (test code = 421256386) 40 >60 Ranges were taken from the National Kidney Disease Education Program and the [employer] literature.Reference ranges:60 or greater: Mqszmr76-88 ( for 3 consecutive months): Chronic kidney disease 15 or less: Kidney failureThe Hospitals of Providence Memorial CampusGlucose skzfyhadecw7948-28-16 05:07:00* Test Item Value Reference Range Interpretation Comments Glucose Level (test code = MLU1015) 98 74-118 [facility] or plasma calcium measurement (mass/volume)2020-05-28 05:07:00* Test Item Value Reference Range Interpretation Comments Calcium Level (test code = 30943-4) 8.5 8.4-10.2 [facility] CampusPhosphorus kaqhdntlziu5191-28-27 05:07:00 * Test Item Value Reference Range Interpretation Comments Phosphorus Level (test code = ZVM1839) 3.7 2.3-4.7 [facility] Centererum or plasma magnesium measurement (mass/volume)2020-05-28 05:07:00* Test Item Value Reference Range Interpretation Comments Magnesium Level (test code = 05686-0) 2.1 1.3-2.1 [facility] CampusBlood leukocytes automated count (number/volume)2020-05-27 05:23:00* Test Item Value Reference Range Interpretation Comments White Blood Count (test code = 6690-2) 11.41 4.8-10.8 [facility] CampusBlood erythrocytes automated count (number/volume)2020-05-27 05:23:00* Test Item Value Reference Range Interpretation Comments Red Blood Count (test code = 789-8) 5.82 3.6-5.1 [facility] CampusBlood hemoglobin measurement (moles/volume)2020-05-27 05:23:00* Test Item Value Reference Range Interpretation Comments Hemoglobin (test code = 63817-2) 12.6 12.0-16.0 [facility] CampusAutomated blood hematocrit (volume fraction)2020-05-27 05:23:00* Test Item Value Reference Range Interpretation Comments Hematocrit (test code = 4544-3) 44.0 34.2-44.1 [facility] CampusAutomated erythrocyte mean corpuscular nruwtx6272-18-31 05:23:00* Test Item Value Reference Range Interpretation Comments Mean Corpuscular Volume (test code = 787-2) 75.6 81-99 [facility] CampusAutomated erythrocyte mean corpuscular hemoglobin (mass per erythrocyte)2020-05-27 05:23:00* Test Item Value Reference Range Interpretation Comments Mean Corpuscular Hemoglobin (test code = 785-6) 21.6 28-32 [facility] CampusAutomated erythrocyte mean corpuscular hemoglobin concentration measurement (mass/volume)2020-05-27 05:23:00* Test Item Value Reference Range Interpretation Comments Mean Corpuscular Hemoglobin Concent (test code = 786-4) 28.6 31-35 [facility] CampusRDW PftVp-Uyn4696-81-09 05:23:00* Test Item Value Reference Range Interpretation Comments Red Cell Distribution Width (test code = 11846-2) 17.8 11.7 -14.4 [facility] CampusAutomated blood platelet count (count/volume)2020-05-27 05:23:00* Test Item Value Reference Range Interpretation Comments Platelet Count (test code = 777-3) 218 140-360 [facility] CampusAutomated blood segmented neutrophil count as percentage of total zgjznmsdhf7664-56-70 05:23:00* Test Item Value Reference Range Interpretation Comments Neutrophils (%) (Auto) (test code = 02252-0) 76.2 38.7-80.0 [facility] CampusAutomated blood lymphocyte count as percentage ot total slbzicwrvp2523-24-49 05:23:00* Test Item Value Reference Range Interpretation Comments Lymphocytes (%) (Auto) (test code = 736-9) 11.9 18.0-39.1 [facility] CampusAutomated blood monocyte count as percentage of total nqankshbgq5335-30-86 05:23:00* Test Item Value Reference Range Interpretation Comments Monocytes (%) (Auto) (test code = 5905-5) 8.8 4.4-11.3 [facility] CampusAutomated blood eosinophil count as percentage of total tmcbvkxdiy1572-64-26 05:23:00* Test Item Value Reference Range Interpretation Comments Eosinophils (%) (Auto) (test code = 713-8) 1.8 0.0-6.0 [facility] CampusAutomated blood basophil count as percentage of total zylpugzqkj3279-32-45 05:23:00* Test Item Value Reference Range Interpretation Comments Basophils (%) (Auto) (test code = 706-2) 0.9 0.0-1.0 [facility] CampusFluoroscopic procedure less than one hour xkyzhpvo9867-95-12 05:23:00* Test Item Value Reference Range Interpretation Comments IM GRANULOCYTES % (test code = IM GRANULOCYTES %) 0.4 0.0- 1.0 [facility] CampusAutomated blood neutrophil count 2020-05-27 05:23:00* Test Item Value Reference Range Interpretation Comments Neutrophils # (Auto) (test code = 751-8) 8.7 2.1-6.9 [facility] lymphocytes count (number/volume) 2020-05-27 05:23:00* Test Item Value Reference Range Interpretation Comments Lymphocytes # (Auto) (test code = 61217-9) 1.4 1.0-3.2 [facility] monocytes automated count (number/volume)2020-05-27 05:23:00* Test Item Value Reference Range Interpretation Comments Monocytes # (Auto) (test code = 742-7) 1.0 0.2-0.8 [facility] CampusAutomated blood eosinophil count 2020-05-27 05:23:00* Test Item Value Reference Range Interpretation Comments Eosinophils # (Auto) (test code = 711-2) 0.2 0.0-0.4 [facility] CampusAutformerly [facility] blood basophil count (count/volume)2020-05-27 05:23:00* Test Item Value Reference Range Interpretation Comments Basophils # (Auto) (test code = 704-7) 0.1 0.0-0.1 [facility] CampusFluoroscopic procedure less than one hour xawrdknn2842-06-69 05:23:00* Test Item Value Reference Range Interpretation Comments Absolute Immature Granulocyte (auto (kayla t code = Absolute Immature Granulocyte (auto) 0.05 0-0.1 [facility] platelets count by estimate (number/volume)2020-05-27 05:23:00* Test Item Value Reference Range Interpretation Comments Platelet Estimate (test code = 15481-5) ADEQUATE [facility] CampusPlatelet owevjlnedo8749-62-01 05:23:00* Test Item Value Reference Range Interpretation Comments Platelet Morphology Comment (test code = 65920-9) FEW EDTA CLUMPING [facility] CampusBlood hypochromia detection by light vecwckdliq8718-15-63 05:23:00* Test Item Value Reference Range Interpretation Comments Hypochromasia (test code = 728-6) SLIGHT [facility] detection by light qtagteqcmn1937-63-60 05:23:00* Test Item Value Reference Range Interpretation Comments Poikilocytosis (test code = 779-9) SLIGHT [facility]Blood anisocytosis detection by light xeuferittr8762-70-78 05:23:00* Test Item Value Reference Range Interpretation Comments Anisocytosis (test code = 702-1) SLIGHT [facility] oval[facility] detection by light pnodwfprzr2464-54-40 05:23:00* Test Item Value Reference Range Interpretation Comments Ovalocytes (test code = 774-0) FEW [facility] CampusRBC jbitebltol3404-99-70 05:23:00* Test Item Value Reference Range Interpretation Comments Red Cell Morphology Comment (test code = 6742-1) ABNORMAL [facility] CampusCT CHEST UH9324-87-16 17:32:00 [facility] [address] [place] [address] Patient Name: COMPA CASAS MR #: [id number] : 1950 Age/Sex: 69/F Req #: [id number] Adm Physician: DWAIN ANDERSON MD Ordered by: DWAIN ANDERSON MD Report #: [id number] Location: MED/SURG Room/Bed: [facility] Procedure: [id number] CT/CT CHEST WO Exam Date: 05/26/20 Exam Time: 1012 REPORT STATUS: Signed EXAM: CT Chest WITHOUT cont rast 05/26/2020 10:12 AM INDICATION: Chest pain. Pneumonia. CHF. COMPARISON: 10/12/2019. TECHNIQUE: Chest was scanned utilizing a multidetector helical s canner from the lung apex through the level of the adrenal glands without admi nistration of IV contrast. Absence of intravenous contrast decreases sensitivi ty for detection of lymphadenopathy and vascular pathology. Coronal and sagitt al reformations were obtained. Routine protocol was performed. IV CONTRAST: None RADIATION DOSE: Total DLP: 823.18 mGy*cm Estimated effective dose: (DLP x 0.014 x size factor) mSv COMPL ICATIONS: None FINDINGS: LINES/ TUBES: None. LUNGS AND AIRWAYS: R edemonstration of patchy groundglass densities associated with thickening of t he pulmonary interstitium with traction bronchiectasis involving particularly the left upper lobe and bilateral lower lobes consistent with interstitial lito g disease, unchanged. No superimposed consolidation. PLEURA: The pleural sp aces are clear. HEART AND MEDIASTINUM: The thyroid gland is normal. No med iastinal, hilar or axillary lymphadenopathy. The heart is mildly enlarged.. T here is no pericardial effusion. There are mild atherosclerotic calcification s in the aorta and coronary arteries. Enlarged pulmonary trunk measuring 3.8 c m in diameter. UPPER ABDOMEN: Limited non-contrast views of the upper abd omen show cholelithiasis.. The adrenal glands are normal. BONES: The visu alized bony thorax is within normal limits. SOFT TISSUES: Unremarkable. IMPRESSION: No significant interval change in interstitial lung disease/pul monary fibrosis (NSIP) without superimposed consolidation. Signed by: Dr. Paul Jackson M.D. on 05/26/2020 5:38 PM Dictated By: JOANN ROMANO MD, MD 0862 Trans cribed By: PHAM on 05/26/201737 COPY TO: DWAIN ANDERSON MD Serum or plasma creatine kinase measurement (enzymatic activity/volume)2020-05-26 14:10:00* Test Item Value Reference Range Interpretation Comments Creatine Kinase (test code = 2157-6) 72 29-168 [facility]ere[facility] or plasma creatine kinase MB measurement (mass/volume)2020-05-26 14:10:00* Test Item Value Reference Range Interpretation Comments Creatine Kinase MB (test code = 08418-1) 1.40 0-5.0 [facility] CampusTroponin I measurement by highly sensitive enzyme iwrdkxujuqe0998-66-47 14:10:00* Test Item Value Reference Range Interpretation Comments Troponin I (test code = 60544-3) 0.002 0-0.300 [facility] CampusCHEST SINGLE (PORTABLE)2020-05-25 15:03:00 [facility] [address] [address] Patient Name: COMPA CASAS MR #: [id number] : 1950 Age/Sex: 69/F Req #: [id number] Adm Physician: Ordered by: KANNAN DELCID DO Report #: [id number] Location: ER Room/Bed: Procedure: [id number] DX/CHEST S JANNETH (PORTABLE) Exam Date: 05/25/20 Exam Time: 1359 REPORT STATUS: Signed EXAMINATI ON: CHEST SINGLE (PORTABLE) INDICATION: Shortness of breath RAF RISON: Chest CT 10/12/2019 FINDINGS: LINES/TUBES:None LUNGS: The lungs are moderately inflated. Left greater than right lower lung intersti tial and airspace opacities. PLEURA:No pleural effusion or pneumothorax. MEDIASTINUM:The cardiomediastinal silhouette appears mildly enlarged. Ather osclerotic calcifications of the thoracic aorta. BONES/SOFT TISSUES:No acut e osseous injury. ABDOMEN:No free air under the diaphragm. IMPRESSI ON: Left greater than right lower lung interstitial and airspace opacities ma y represent pulmonary interstitial and airspace edema. Superimposed pneumonia should be excluded clinically. Signed by: Isabel Fish MD on 05/25/2020 3:04 PM Dictated By: ISABEL FISH MD 0954 COPY TO: KANNAN MCCULLOUGH DO Fluoroscopic procedure less than one hour duration 2020-05-25 15:00:00* Test Item Value Reference Range Interpretation Comments Coronavirus (PCR) (test code = Coronavirus (PCR)) NOT DETECTED NOTD ETECTED [employer] Aptima SARS-CoV-2 assay is a nucleic amplification test intended for the qualitative detection of RNA from SARS-CoV-2 from nasopharyngeal (COMPRESSION MOLDING MACHINE OPERATOR) specimens . It is used under Emergency Use Authorization (EUA) by FDA.A positive result is indicative of the presence of SARS-CoV-2 RNA. Clinical correlation with patient history and other diagnostic information is necessary to determine patient infe ction status.A negative (Not Detected) result does not preclude SARS-CoV-2 infec tion. Clinical Correlation with patient history and other diagnostic information should be used in patient management decisions.Invalid: Unable to generate a va lid result on this specimen. Please submit a new specimen for reprat testing oc clinically indicated.Tesing performed by:[facility] Laboratory [address] [place] [address] [id number], Shaw Phillips MD, PhD [facility] CampusUrine color manfluqwuwzyl1397-45-29 14:40:00* Test Item Value Reference Range Interpretation Comments Urine Color (test code = 5778-6) YELLOW YELLOW [facility] CampusUrine unxbzyg7968-27-43 14:40:00* Test Item Value Reference Range Interpretation Comments Urine Clarity (test code = 71783-7) SL CLOUDY CLEAR [facility] Centerpecific gravity of Urine by Test strip 2020-05-25 14:40:00* Test Item Value Reference Range Interpretation Comments Urine Specific [place] (test code = 5811-5) 1.025 1.010-1.02 5 [facility] CampusUrine pH measurement by automated test dxqey4436-12-12 14:40:00* Test Item Value Reference Range Interpretation Comments Urine pH (test code = 91844-2) 7 5-7 [facility] CampusUrine leukocyte esterase detection by bzwbkhue6859-90-11 14:40:00* Test Item Value Reference Range Interpretation Comments Urine Leukocyte Esterase (test code = 5799-2) NEGATIVE NEGATIVE [facility] CampusUrine nitrite hxkodixmq8471-13-38 14:40:00* Test Item Value Reference Range Interpretation Comments Urine Nitrite (test code = 51457-9) NEGATIVE NEGATIVE [facility] CampusUrine protein measurement by test strip (mass/volume)2020-05-25 14:40:00* Test Item Value Reference Range Interpretation Comments Urine Protein (test code = 5804-0) NEGATIVE NEGATIVE [facility] CampusUrine glucose oibykoilp8366-99-57 14:40:00* Test Item Value Reference Range Interpretation Comments Urine Glucose (UA) (test code = 2349-9) NEGATIVE NEGATIVE [facility] CampusUrine ketones detection by automated test yjtdf0596-92-82 14:40:00* Test Item Value Reference Range Interpretation Comments Urine Ketones (test code = 39936-5) NEGATIVE NEGATIVE [facility] CampusUrine urobilinogen measurement by test strip (mass/volume)2020-05-25 14:40:00* Test Item Value Reference Range Interpretation Comments Urine Urobilinogen (test code = 49067-9) 0.2 0.2-1 [facility] CampusUrine total bilirubin measurement (mass/volume)2020-05-25 14:40:00* Test Item Value Reference Range Interpretation Comments Urine Bilirubin (test code = 1978-6) NEGATIVE NEGATIVE [facility] CampusUrine erythrocytes bbwkomreu7379-01-25 14:40:00* Test Item Value Reference Range Interpretation Comments Urine Blood (test code = 09601-1) NEGATIVE NEGATIVE [facility] CampusAutomated urine sediment leukocyte count by microscopy (number/high power field)2020-05-25 14:40:00* Test Item Value Reference Range Interpretation Comments Urine WBC (test code = 5821-4) NONE 0-5 [facility] CampusErythrocytes detection in urine sediment by light qnysegwmvn0845-15-17 14:40:00* Test Item Value Reference Range Interpretation Comments Urine RBC (test code = 01123-3) NONE 0-5 [facility] CampusBacteria detection in urine sediment by light gsjrcdvzer1057-25-05 14:40:00* Test Item Value Reference Range Interpretation Comments Urine Bacteria (test code = 51985-1) MODERATE NONE [facility] CampusEpithelial cells detection in urine sediment by light atdiscskbs2767-19-17 14:40:00* Test Item Value Reference Range Interpretation Comments Urine Epithelial Cells (test code = 97758-4) FEW NONE [facility] CampusHyaline casts detection in urine sediment by light jypqvmgmsl0179-90-19 14:40:00* Test Item Value Reference Range Interpretation Comments Urine Hyaline Casts (test code = 45284-6) 2-5 0-1 [facility] Centererum or plasma total bilirubin measurement (mass/volume)2020-05-25 14:40:00* Test Item Value Reference Range Interpretation Comments Total Bilirubin (test code = 1975-2) 0.9 0.2-1.2 [facility] CampusFluoroscopic procedure less than one hour nfxbffwq4597-14-32 14:40:00* Test Item Value Reference Range Interpretation Comments Aspartate Amino Transf (AST/SGOT) (test code = Aspartate Amino Transf (AST/SGOT)) 21 5-34 [facility] Centererum or plasma alanine aminotransferase measurement (enzymatic activity/volume)2020-05-25 14:40:00* Test Item Value Reference Range Interpretation Comments Alanine Aminotransferase (ALT/SGPT) (test code = 1742-6) 11 0-55 [facility] Centererum or plasma protein measurement (mass/volume)2020-05-25 14:40:00* Test Item Value Reference Range Interpretation Comments Total Protein (test code = 2885-2) 7.9 6.5-8.1 [facility] Centererum or plasma albumin measurement (mass/volume)2020-05-25 14:40:00* Test Item Value Reference Range Interpretation Comments Albumin (test code = 1751-7) 3.6 3.5-5.0 [facility] CampusPlasma globulin measurement (mass/volume) 2020-05-25 14:40:00* Test Item Value Reference Range Interpretation Comments Globulin (test code = 17421-2) 4.3 2.3-3.5 [facility] Centererum or plasma albumin/globulin mass cdeyo0458-69-63 14:40:00* Test Item Value Reference Range Interpretation Comments Albumin/Globulin Ratio (test code = 1759-0) 0.8 0.8-2.0 [facility] Centererum or plasma alkaline phosphatase measurement (enzymatic activity/volume)2020-05-25 14:40:00* Test Item Value Reference Range Interpretation Comments Alkaline Phosphatase (test code = 6768-6) 144 40-150 [facility] CampusBNP Smr-nFgy9866-19-07 14:40:00* Test Item Value Reference Range Interpretation Comments B-Type Natriuretic Peptide (test code = 06699-3) 319.1 0-100 [facility] CampusBedside Bocbcrv2371-54-49 11:37:00* Test Item Value Reference Range Interpretation Comments Bedside Glucose (test code = 94683-9) 123 70-120 H Meter ID: [id number] Hospitals of Providence Memorial CampusHypochromasia 2019-10-18 08:10:00* Test Item Value Reference Range Interpretation Comments Hypochromasia (test code = 728-6) SLIGHT [facility] CampusRed Cell Morphology Kouadjt9842-55-43 08:10:00* Test Item Value Reference Range Interpretation Comments Red Cell Morphology Comment (test code = 6742-1) ABNORMAL [facility] Centerodium Vkzxb0384-49-99 06:16:00* Test Item Value Reference Range Interpretation Comments Sodium Level (test code = 2951-2) 138 136-145 [facility] CampusPotassium Kfyye4266-37-54 06:16:00* Test Item Value Reference Range Interpretation Comments Potassium Level (test code = 2823-3) 3.3 3.5-5.1 L [facility] CampusChloride Lqbqc8832-94-06 06:16:00* Test Item Value Reference Range Interpretation Comments Chloride Level (test code = 2075-0) 95 98-107 L [facility] CampusCarbon Dioxide Xdskn5493-85-38 06:16:00* Test Item Value Reference Range Interpretation Comments Carbon Dioxide Level (test code = 2028-9) 32 22-29 H [facility] CampusAnion Qrl1388-65-23 06:16:00* Test Item Value Reference Range Interpretation Comments Anion Gap (test code = 77240-7) 14.3 8-16 [facility] CampusBlood Urea Vjbpyvol9305-53-01 06:16:00* Test Item Value Reference Range Interpretation Comments Blood Urea Nitrogen (test code = 3094-0) 22 7-26 [facility] CampusCreatinine2019-12-31 06:16:00* Test Item Value Reference Range Interpretation Comments Creatinine (test code = 2160-0) 1.38 0.57-1.11 H [facility] CampusBUN/Creatinine Kdurs1701-79-14 06:16:00* Test Item Value Reference Range Interpretation Comments BUN/Creatinine Ratio (test code = 3097-3) 16 6-25 [facility] CampusEstimat Glomerular Filtration Rate 2019-10-18 06:16:00* Test Item Value Reference Range Interpretation Comments Estimat Glomerular Filtration Rate (test code = 110687988) 38 >60 L Ranges were taken from the National Kidney Disease Education Program and the [employer] literature.Reference ranges:60 or greater: Tqwqbj19-75 ( for 3 consecutive months): Chronic kidney disease 15 or less: Kidney failureThe Hospitals of Providence Memorial CampusGlucose Zonvt6676-19-48 06:16:00* Test Item Value Reference Range Interpretation Comments Glucose Level (test code = ALC1267) 113 74-118 [facility] CampusCalcium Tkzko2190-11-26 06:16:00* Test Item Value Reference Range Interpretation Comments Calcium Level (test code = 29387-7) 9.1 8.4-10.2 [facility] CampusWhite Blood Kitcm3579-99-58 06:15:00* Test Item Value Reference Range Interpretation Comments White Blood Count (test code = 6690-2) 9.16 4.8-10.8 [facility] CampusRed Blood Jquky0479-78-44 06:15:00* Test Item Value Reference Range Interpretation Comments Red Blood Count (test code = 789-8) 4.86 3.6-5.1 [facility] CampusHemoglobin2019-12-31 06:15:00* Test Item Value Reference Range Interpretation Comments Hemoglobin (test code = 81235-8) 10.5 12.0-16.0 L [facility] CampusHematocrit2019-12-31 06:15:00* Test Item Value Reference Range Interpretation Comments Hematocrit (test code = 4544-3) 36.5 34.2-44.1 [facility] CampusMean Corpuscular Msccnf7805-30-44 06:15:00* Test Item Value Reference Range Interpretation Comments Mean Corpuscular Volume (test code = 787-2) 75.1 81-99 L [facility] CampusMean Corpuscular Yvhtxjlzkc0266-27-50 06:15:00* Test Item Value Reference Range Interpretation Comments Mean Corpuscular Hemoglobin (test code = 785-6) 21.6 28-32 L [facility] CampusMean Corpuscular Hemoglobin Concent 2019-10-18 06:15:00* Test Item Value Reference Range Interpretation Comments Mean Corpuscular Hemoglobin Concent (test code = 786-4) 28.8 31-35 L [facility] CampusRed Cell Distribution Qvlrx5633-94-50 06:15:00* Test Item Value Reference Range Interpretation Comments Red Cell Distribution Width (test code = 99566-8) 20.6 11.7 -14.4 H [facility] CampusPlatelet Xymub3640-34-14 06:15:00* Test Item Value Reference Range Interpretation Comments Platelet Count (test code = 777-3) 190 140-360 [facility] CampusNeutrophils (%) (Auto)2019-10-18 06:15:00 * Test Item Value Reference Range Interpretation Comments Neutrophils (%) (Auto) (test code = 43586-4) 72.8 38.7-80.0 [facility] CampusLymphocytes (%) (Auto)2019-10-18 06:15:00 * Test Item Value Reference Range Interpretation Comments Lymphocytes (%) (Auto) (test code = 736-9) 14.3 18.0-39.1 L [facility] CampusMonocytes (%) (Auto)2019-10-18 06:15:00* Test Item Value Reference Range Interpretation Comments Monocytes (%) (Auto) (test code = 5905-5) 8.7 4.4-11.3 [facility] CampusEosinophils (%) (Auto)2019-10-18 06:15:00 * Test Item Value Reference Range Interpretation Comments Eosinophils (%) (Auto) (test code = 713-8) 3.4 0.0-6.0 [facility] CampusBasophils (%) (Auto)2019-10-18 06:15:00* Test Item Value Reference Range Interpretation Comments Basophils (%) (Auto) (test code = 706-2) 0.4 0.0-1.0 [facility] CampusIM GRANULOCYTES %2019-10-18 06:15:00* Test Item Value Reference Range Interpretation Comments IM GRANULOCYTES % (test code = IM GRANULOCYTES %) 0.4 0.0- 1.0 [facility] CampusNeutrophils # (Auto)2019-10-18 06:15:00* Test Item Value Reference Range Interpretation Comments Neutrophils # (Auto) (test code = 751-8) 6.7 2.1-6.9 [facility] CampusLymphocytes # (Auto)2019-10-18 06:15:00* Test Item Value Reference Range Interpretation Comments Lymphocytes # (Auto) (test code = 65606-4) 1.3 1.0-3.2 [facility] CampusMonocytes # (Auto)2019-10-18 06:15:00* Test Item Value Reference Range Interpretation Comments Monocytes # (Auto) (test code = 742-7) 0.8 0.2-0.8 [facility] CampusEosinophils # (Auto)2019-10-18 06:15:00* Test Item Value Reference Range Interpretation Comments Eosinophils # (Auto) (test code = 711-2) 0.3 0.0-0.4 [facility] CampusBasophils # (Auto)2019-10-18 06:15:00* Test Item Value Reference Range Interpretation Comments Basophils # (Auto) (test code = 704-7) 0.0 0.0-0.1 [facility] CampusAbsolute Immature Granulocyte (auto 2019-10-18 06:15:00* Test Item Value Reference Range Interpretation Comments Absolute Immature Granulocyte (auto (kayla t code = Absolute Immature Granulocyte (auto) 0.04 0-0.1 [facility] CenterMALL BOWEL FWUOJR8912-13-85 14:57:00 [address] [place] [address] Patient Name: COMPA CASAS MR #: [id number] : 1950 Age/Sex: 69/F Req #: [id number] Adm Physician: DWAIN ANDERSON MD Ordered by: DEISY JOHNSON MD Report #: [id number] [facility] Room/Bed: [facility] Procedure: [id number] D X/SMALL BOWEL SERIES Exam Date: Exam Time: REPORT STATUS: Signed SMALL BOWEL FOLLO W THROUGH HISTORY: Anemia HOTEL CONTROLLER(S): Isabel Fish MD Comparis on: None Procedure: [...] 1500 COPY TO: DEISY JOHNSON MD Blood Xnxlked8915-68-40 12:27:00* Test Item Value Reference Range Interpretation Comments Blood Culture (test code = 23495423) NO GROWTH AFTER 5 DAYS, FINAL REPORT [facility]2019-12-27 04:04:00* Test Item Value Reference Range Interpretation Comments Folate (test code = 2284-8) 6.1 >3.0 A serum folate concentration of less than 3.1 ng/mL isconsidered to represent cl inical deficiency.Performed at: - [facility] [id number] Director: Paul Ann MD, Phone: [phone] Occult Ckqyn7257-69-77 14:23:00* Test Item Value Reference Range Interpretation Comments Stool Occult Blood (test code = 2335-8) NEGATIVE NEGATIVE [facility] gastrointestinal hemoglobin khqmfhzti3987-00-85 12:55:00* Test Item Value Reference Range Interpretation Comments Stool Occult Blood (test code = 2335-8) NEGATIVE NEGATIVE [facility] CampusCreatine Kinase RB2866-37-97 15:01:00* Test Item Value Reference Range Interpretation Comments Creatine Kinase MB (test code = 33360-0) 2.10 0-5.0 [facility] CampusTroponin U9298-54-74 15:01:00* Test Item Value Reference Range Interpretation Comments Troponin I (test code = XIA7929) < 0.001 0-0.300 [facility] CampusCreatine Mzasjs8835-89-79 14:53:00* Test Item Value Reference Range Interpretation Comments Creatine Kinase (test code = 2157-6) 66 29-168 [facility] Centererum or plasma folate measurement (mass/volume)2019-10-12 12:45:00* Test Item Value Reference Range Interpretation Comments Folate (test code = 2284-8) 6.1 >3.0 A serum folate concentration of less than 3.1 ng/mL isconsidered to represent cl inical deficiency.Performed at: - [facility] [id number] Director: Paul Ann MD, Phone: [phone] Hospitals of Providence Memorial CampusCT CHEST SW7511-42-79 12:04:00 [facility] [address] [place] [address] Patient Name: COMPA CASAS MR #: [id number] : 1950 Age/Sex: 69/F Req #: [id number] Adm Physician: DWAIN ANDERSON MD Ordered by: DWAIN ANDERSON MD Report #: [id number] Location: MED/SURG3 Room/Bed: [facility] Procedure: [id number] CT/CT CHEST WO Exam Date: 10/12/19 Exam Time: 1052 REPORT STATUS: Signed EXAM: CT Chest W ITHOUT contrast 10/12/2019 10:04 AM INDICATION: sob [id number] COMPARISON: Chest radiograph 10/11/2019 and [...] enlarged, measuring 3.8 cm in diameter consistent wit h pulmonary hypertension. UPPER ABDOMEN: Cholelithiasis. 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 BONES: The visualized bony thorax is within normal limits. SOFT TISSUES: Unremarkable. IMPRESSION: Acute on chronic pulmonary edema, worse since 09/08/2019. Diffuse reticul ar opacities mainly in the left lung are [...] Comments Vitamin B12 Level (test code = 13058-7) 316 213-816 [facility] CampusThyroid Stimulating Hormone (TSH) 2019-10-12 11:11:00* Test Item Value Reference Range Interpretation Comments Thyroid Stimulating Hormone (TSH) (test code = 36065-6) 0.363 0.350-4.940 [facility] CampusIron Yjvpz7559-03-61 10:38:00* Test Item Value Reference Range Interpretation Comments Iron Level (test code = 2498-4) 14 50-170 L [facility] CampusTotal Iron Binding Odruejoh9550-35-55 10:38:00* Test Item Value Reference Range Interpretation Comments Total Iron Binding Capacity (test code = 2500-7) 409 261-4 78 [facility] CampusPercent Iron Jadspufuue2856-56-53 10:38:00* Test Item Value Reference Range Interpretation Comments Percent Iron Saturation (test code = 2502-3) 3 15-50 L [facility] CampusTransferrin2019-12-25 10:38:00* Test Item Value Reference Range Interpretation Comments Transferrin (test code = 3034-6) 292 180-382 [facility] CampusTotal Xmaaqidrh7288-21-81 06:43:00* Test Item Value Reference Range Interpretation Comments Total Bilirubin (test code = 1975-2) 0.5 0.2-1.2 [facility] [facility] CampusAspartate Amino Transf (AST/SGOT) 2019-10-12 06:43:00* Test Item Value Reference Range Interpretation Comments Aspartate Amino Transf (AST/SGOT) (test code = Aspartate Amino Transf (AST/SGOT)) 13 5-34 [facility] CampusAlanine Aminotransferase (ALT/SGPT) 2019-10-12 06:43:00* Test Item Value Reference Range Interpretation Comments Alanine Aminotransferase (ALT/SGPT) (test code = 1742-6) 8 0-55 [facility] CampusTotal Gnuaxuy8701-19-89 06:43:00* Test Item Value Reference Range Interpretation Comments Total Protein (test code = 2885-2) 6.2 6.5-8.1 L [facility] CampusAlbumin2019-12-25 06:43:00* Test Item Value Reference Range Interpretation Comments Albumin (test code = 1751-7) 2.9 3.5-5.0 L [facility] CampusGlobulin2019-12-25 06:43:00* Test Item Value Reference Range Interpretation Comments Globulin (test code = 10772-9) 3.3 2.3-3.5 [facility] CampusAlbumin/Globulin Updyk7118-89-88 06:43:00 * Test Item Value Reference Range Interpretation Comments Albumin/Globulin Ratio (test code = 1759-0) 0.9 0.8-2.0 [facility] CampusAlkaline Vmbprfwoopc1417-50-32 06:43:00* Test Item Value Reference Range Interpretation Comments Alkaline Phosphatase (test code = 6768-6) 104 40-150 [facility]ererum [facility] plasma iron measurement (mass/volume)2019-10-12 04:40:00* Test Item Value Reference Range Interpretation Comments Iron Level (test code = 2498-4) 14 50-170 [facility]ererum or plasma iron binding capacity measurement (mass/volume)2019-10-12 04:40:00* Test Item Value Reference Range Interpretation Comments Total Iron Binding Capacity (test code = 2500-7) 409 261-4 78 [facility] Centererum or plasma iron saturation measurement (mass fraction)2019-10-12 04:40:00* Test Item Value Reference Range Interpretation Comments Percent Iron Saturation (test code = 2502-3) 3 15-50 [facility]ererum or plasma transferrin measurement (mass/volume)2019-10-12 04:40:00* Test Item Value Reference Range Interpretation Comments Transferrin (test code = 3034-6) 292 180-382 [facility] CampusBlood cobalamin (vitamin B12) measurement (mass/volume)2019-10-12 04:40:00* Test Item Value Reference Range Interpretation Comments Vitamin B12 Level (test code = 02381-9) 316 213-816 [facility]ererum or plasma thyrotropin measurement by detection limit <= 0.005 miu/l (units/volume)2019-10-12 04:40:00* Test Item Value Reference Range Interpretation Comments Thyroid Stimulating Hormone (TSH) (test code = 56946-2) 0.363 0.350-4.940 [facility] CampusInfluenza Virus Types A,B Antigen 2019-10-11 12:59:00* Test Item Value Reference Range Interpretation Comments Influenza Virus Types A,B Antigen (test code = 78959-7) NEGATIVE NEGATIVE [facility] CampusB-Type Natriuretic Zgrvoja9059-10-16 12:57:00* Test Item Value Reference Range Interpretation Comments B-Type Natriuretic Peptide (test code = 59358-5) 130.1 0-100 H [facility] CampusMagnesium Ilfhr1160-45-87 12:48:00* Test Item Value Reference Range Interpretation Comments Magnesium Level (test code = 21351-9) 2.0 1.3-2.1 [facility] CampusProthrombin Emah4415-15-42 12:46:00* Test Item Value Reference Range Interpretation Comments Prothrombin Time (test code = 5902-2) 13.9 11.9-14.5 [facility] CampusProthromb Time International Ratio 2019-10-11 12:46:00* Test Item Value Reference Range Interpretation Comments Prothromb Time International Ratio (test code = 6301-6) 1.02 Oral Anticoagulant Therapy INR Values:1. Low Intensity Therapy 1.5 - 2.02 . Moderate Intensity Therapy 2.0 - 3.03. High Intensity Therapy(1) 2.5 - 3. 54. High Intensity Therapy(2) 3.0 - 4.05. Panic Value INR > 5.0 [facility] CampusActivated Partial Thromboplast Time 2019-10-11 12:46:00* Test Item Value Reference Range Interpretation Comments Activated Partial Thromboplast Time (test code = 25413-8) 29.2 23.8-35.5 [facility] CampusCHEST SINGLE (PORTABLE)2019-10-11 12:26:00 [facility] [address] [address] Patient Name: COMPA CASAS MR #: [id number] : 1950 Age/Sex: 69/F Req #: [id number] Adm Physician: Ordered by: HUMZA FAYE MD Report #: [id number] Location: ER Room/Bed: Procedure: [id number] DX /CHEST SINGLE (PORTABLE) Exam Date: 10/11/19 [...] PHAM on 10/11/19 1231 COPY TO: HUMZA FYAE MD Blood vciozyl1062-04-52 11:20:00* Test Item Value Reference Range Interpretation Comments Blood Culture (test code = 26964495) NO GROWTH AFTER 5 DAYS, FINAL REPORT [facility] CampusProthrombin time (PT) in platelet poor plasma by coagulation nwfju4571-15-78 11:18:00* Test Item Value Reference Range Interpretation Comments Prothrombin Time (test code = 5902-2) 13.9 11.9-14.5 [facility] CampusINR in Platelet poor plasma by Coagulation vweqo9235-62-19 11:18:00* Test Item Value Reference Range Interpretation Comments Prothromb Time International Ratio (test code = 6301-6) 1.02 Oral Anticoagulant Therapy INR Values:1. Low Intensity Therapy 1.5 - 2.02 . Moderate Intensity Therapy 2.0 - 3.03. High Intensity Therapy(1) 2.5 - 3. 54. High Intensity Therapy(2) 3.0 - 4.05. Panic Value INR > 5.0 [facility] CampusActivated partial thromboplastin time (aPTT) in platelet poor plasma by coagulation dxnly8043-55-99 11:18:00* Test Item Value Reference Range Interpretation Comments Activated Partial Thromboplast Time (test code = 60973-2) 29.2 23.8-35.5 [facility] CampusInfluenza virus A and B antigen identification by nriohsvxfhqvdgkkiw3968-60-31 11:01:00* Test Item Value Reference Range Interpretation Comments Influenza Virus Types A,B Antigen (test code = 10135-1) NEGATIVE NEGATIVE [facility] CampusIron Sgzwl5263-67-68 13:13:00* Test Item Value Reference Range Interpretation Comments Iron Level (test code = 2498-4) 16 50-170 L [facility] CampusTotal Iron Binding Myfgmvrd2163-50-63 13:13:00* Test Item Value Reference Range Interpretation Comments Total Iron Binding Capacity (test code = 2500-7) 517 261-4 78 H [facility] CampusPercent Iron Vjeiswwuek8138-83-02 13:13:00* Test Item Value Reference Range Interpretation Comments Percent Iron Saturation (test code = 2502-3) 3 15-50 L [facility] CampusTransferrin2019-11-23 13:13:00* Test Item Value Reference Range Interpretation Comments Transferrin (test code = 3034-6) 369 180-382 [facility] CampusBedside Mboyfln9835-33-55 08:44:00* Test Item Value Reference Range Interpretation Comments Bedside Glucose (test code = 06643-9) 211 70-120 H Meter ID: [id number] CenterBlood Culture 2019-09-10 01:40:00* Test Item Value Reference Range Interpretation Comments Blood Culture (test code = 18858896) NO GROWTH AFTER 48 HOURS [facility] Centerodium Grqja7970-23-86 06:19:00* Test Item Value Reference Range Interpretation Comments Sodium Level (test code = 2951-2) 141 136-145 [facility] CampusPotassium Ozkgt7794-15-11 06:19:00* Test Item Value Reference Range Interpretation Comments Potassium Level (test code = 2823-3) 4.5 3.5-5.1 [facility] CampusChloride Hqylj0613-42-20 06:19:00* Test Item Value Reference Range Interpretation Comments Chloride Level (test code = 2075-0) 103 98-107 [facility] CampusCarbon Dioxide Tsfez0151-93-05 06:19:00* Test Item Value Reference Range Interpretation Comments Carbon Dioxide Level (test code = 2028-9) 29 22-29 [facility] CampusAnion Gla1487-54-26 06:19:00* Test Item Value Reference Range Interpretation Comments Anion Gap (test code = 15555-7) 13.5 8-16 [facility] CampusBlood Urea Irikwmtl2127-73-09 06:19:00* Test Item Value Reference Range Interpretation Comments Blood Urea Nitrogen (test code = 3094-0) 24 7-26 [facility] CampusCreatinine2019-11-22 06:19:00* Test Item Value Reference Range Interpretation Comments Creatinine (test code = 2160-0) 1.22 0.57-1.11 H [facility] CampusBUN/Creatinine Tohun1233-50-74 06:19:00* Test Item Value Reference Range Interpretation Comments BUN/Creatinine Ratio (test code = 3097-3) 20 6-25 [facility] CampusEstimat Glomerular Filtration Rate 2019-09-09 06:19:00* Test Item Value Reference Range Interpretation Comments Estimat Glomerular Filtration Rate (test code = 658220056) 43 >60 L Ranges were taken from the National Kidney Disease Education Program and the [facility] Foundation literature.Reference ranges:60 or greater: Vgrygh66-26 ( for 3 consecutive months): Chronic kidney disease 15 or less: Kidney failureThe Hospitals of Providence Memorial CampusGlucose Sdanl1965-63-18 06:19:00* Test Item Value Reference Range Interpretation Comments Glucose Level (test code = VXE1649) 165 74-118 H [facility] CampusCalcium Lxkzo4100-27-95 06:19:00* Test Item Value Reference Range Interpretation Comments Calcium Level (test code = 33753-8) 9.1 8.4-10.2 [facility] CampusWhite Blood Iamkm1970-39-73 06:01:00* Test Item Value Reference Range Interpretation Comments White Blood Count (test code = 6690-2) 5.75 4.8-10.8 [facility] CampusRed Blood Svill7239-85-89 06:01:00* Test Item Value Reference Range Interpretation Comments Red Blood Count (test code = 789-8) 3.73 3.6-5.1 [facility] CampusHemoglobin2019-11-22 06:01:00* Test Item Value Reference Range Interpretation Comments Hemoglobin (test code = 80882-8) 7.7 12.0-16.0 L [facility] CampusHematocrit2019-11-22 06:01:00* Test Item Value Reference Range Interpretation Comments Hematocrit (test code = 4544-3) 27.8 34.2-44.1 L [facility] CampusMean Corpuscular Wcxkmd5913-58-43 06:01:00* Test Item Value Reference Range Interpretation Comments Mean Corpuscular Volume (test code = 787-2) 74.5 81-99 L [facility] CampusMean Corpuscular Zgnhwnvtcv5853-96-57 06:01:00* Test Item Value Reference Range Interpretation Comments Mean Corpuscular Hemoglobin (test code = 785-6) 20.6 28-32 L [facility] CampusMean Corpuscular Hemoglobin Concent 2019-09-09 06:01:00* Test Item Value Reference Range Interpretation Comments Mean Corpuscular Hemoglobin Concent (test code = 786-4) 27.7 31-35 L [facility] CampusRed Cell Distribution Xapok8582-54-06 06:01:00* Test Item Value Reference Range Interpretation Comments Red Cell Distribution Width (test code = 43103-2) 16.6 11.7 -14.4 H [facility] CampusPlatelet Osieb4205-54-48 06:01:00* Test Item Value Reference Range Interpretation Comments Platelet Count (test code = 777-3) 170 140-360 [facility] CampusNeutrophils (%) (Auto)2019-09-09 06:01:00 * Test Item Value Reference Range Interpretation Comments Neutrophils (%) (Auto) (test code = 77289-7) 81.2 38.7-80.0 H [facility] CampusLymphocytes (%) (Auto)2019-09-09 06:01:00 * Test Item Value Reference Range Interpretation Comments Lymphocytes (%) (Auto) (test code = 736-9) 10.4 18.0-39.1 L [facility] CampusMonocytes (%) (Auto)2019-09-09 06:01:00* Test Item Value Reference Range Interpretation Comments Monocytes (%) (Auto) (test code = 5905-5) 7.5 4.4-11.3 [facility] CampusEosinophils (%) (Auto)2019-09-09 06:01:00 * Test Item Value Reference Range Interpretation Comments Eosinophils (%) (Auto) (test code = 713-8) 0.0 0.0-6.0 [facility] CampusBasophils (%) (Auto)2019-09-09 06:01:00* Test Item Value Reference Range Interpretation Comments Basophils (%) (Auto) (test code = 706-2) 0.2 0.0-1.0 [facility] CampusIM GRANULOCYTES %2019-09-09 06:01:00* Test Item Value Reference Range Interpretation Comments IM GRANULOCYTES % (test code = IM GRANULOCYTES %) 0.7 0.0- 1.0 [facility] CampusNeutrophils # (Auto)2019-09-09 06:01:00* Test Item Value Reference Range Interpretation Comments Neutrophils # (Auto) (test code = 751-8) 4.7 2.1-6.9 [facility] CampusLymphocytes # (Auto)2019-09-09 06:01:00* Test Item Value Reference Range Interpretation Comments Lymphocytes # (Auto) (test code = 87508-0) 0.6 1.0-3.2 L [facility] CampusMonocytes # (Auto)2019-09-09 06:01:00* Test Item Value Reference Range Interpretation Comments Monocytes # (Auto) (test code = 742-7) 0.4 0.2-0.8 [facility] CampusEosinophils # (Auto)2019-09-09 06:01:00* Test Item Value Reference Range Interpretation Comments Eosinophils # (Auto) (test code = 711-2) 0.0 0.0-0.4 [facility] CampusBasophils # (Auto)2019-09-09 06:01:00* Test Item Value Reference Range Interpretation Comments Basophils # (Auto) (test code = 704-7) 0.0 0.0-0.1 [facility] CampusAbsolute Immature Granulocyte (auto 2019-09-09 06:01:00* Test Item Value Reference Range Interpretation Comments Absolute Immature Granulocyte (auto (kayla t code = Absolute Immature Granulocyte (auto) 0.04 0-0.1 [facility] CampusCT CHEST SA0366-36-03 12:59:00 [facility] [address] [place] [address] Patient Name: COMPA CASAS MR #: [id number] : 1950 Age/Sex: 69/F Req #: [id number] Adm Physician: ARACELY WHITE MD Ordered by: DWAIN ANDERSON MD Report #: [id number] Location: [facility] Room/Bed: [facility] Procedure: [id number] CT/C T CHEST WO Exam Date: 09/08/19 Exam Time: 1030 REPORT STATUS: Signed EXAM: CT Chest WITHOUT intravenous contrast 09/08/2019 9:51 AM INDICATION: Shortness of martha th, productive cough COMPARISON: Chest radiograph 09/08/2019 TECHNIQUE: est was scanned utilizing a multidetector helical [...] PM Dictated By : ISABEL FISH MD 1300 Trans cribed By: PHAM on 09/08/19 1305 COPY TO: DWAIN ANDERSON MD CHEST 2 FJMZV4862-53-02 00:43:[address] [address] Patient Name: COMPA CASAS MR #: [id number] : 1950 Age/Sex: 69/F Req #: [id number] Adm Physician: Ordered by: KANNAN DELCID DO Report #: [id number] Location: ER Room/Bed: Procedure: [id number] DX/CHEST 2 VIEWS Exam Date: 09/08/19 Exam Time: 000 0 REPORT STATUS: Signed EXAMINAT ION: CHEST 2 [...] TO: KANNAN DELCID DO B- Type Natriuretic Euaykdv9503-82-12 23:46:00* Test Item Value Reference Range Interpretation Comments B-Type Natriuretic Peptide (test code = 70854-7) 125.6 0-100 H [facility] CampusCreatine Kinase TS2354-19-84 23:35:00* Test Item Value Reference Range Interpretation Comments Creatine Kinase MB (test code = 10847-6) 2.00 0-5.0 [facility] CampusTroponin E1328-01-94 23:35:00* Test Item Value Reference Range Interpretation Comments Troponin I (test code = VSL8929) < 0.001 0-0.300 [facility] CampusTotal Wkkukhtks0579-09-10 23:27:00* Test Item Value Reference Range Interpretation Comments Total Bilirubin (test code = 1975-2) 0.5 0.2-1.2 [facility] CampusAspartate Amino Transf (AST/SGOT) 2019-09-07 23:27:00* Test Item Value Reference Range Interpretation Comments Aspartate Amino Transf (AST/SGOT) (test code = Aspartate Amino Transf (AST/SGOT)) 18 5-34 [facility] CampusAlanine Aminotransferase (ALT/SGPT) 2019-09-07 23:27:00* Test Item Value Reference Range Interpretation Comments Alanine Aminotransferase (ALT/SGPT) (test code = 1742-6) 9 0-55 [facility] CampusTotal Nqodvvz5268-83-49 23:27:00* Test Item Value Reference Range Interpretation Comments Total Protein (test code = 2885-2) 7.0 6.5-8.1 [facility] CampusAlbumin2019-11-20 23:27:00* Test Item Value Reference Range Interpretation Comments Albumin (test code = 1751-7) 3.3 3.5-5.0 L [facility] CampusGlobulin2019-11-20 23:27:00* Test Item Value Reference Range Interpretation Comments Globulin (test code = 50123-8) 3.7 2.3-3.5 H [facility] CampusAlbumin/Globulin Cooah7922-15-54 23:27:00 * Test Item Value Reference Range Interpretation Comments Albumin/Globulin Ratio (test code = 1759-0) 0.9 0.8-2.0 [facility] CampusAlkaline Obcjvfzlmpd7901-59-51 23:27:00* Test Item Value Reference Range Interpretation Comments Alkaline Phosphatase (test code = 6768-6) 113 40-150 [facility] CampusCreatine Nonsug0825-05-00 23:27:00* Test Item Value Reference Range Interpretation Comments Creatine Kinase (test code = 2157-6) 73 29-168 [facility] CampusBedside Btuttig3886-25-45 08:15:00* Test Item Value Reference Range Interpretation Comments Bedside Glucose (test code = 31704-7) 94 70-120 Meter ID: [id number] Hermann [facility] City Medical CenterBlood Culture 2019-07-24 22:34:00* Test Item Value Reference Range Interpretation Comments Blood Culture (test code = 08631159) NO GROWTH AFTER 5 DAYS, FINAL REPORT [facility] Centerodium Rypuo7191-28-87 06:49:00* Test Item Value Reference Range Interpretation Comments Sodium Level (test code = 2951-2) 142 136-145 [facility] CampusPotassium Xqtdc8215-41-68 06:49:00* Test Item Value Reference Range Interpretation Comments Potassium Level (test code = 2823-3) 4.1 3.5-5.1 [facility] CampusChloride Npppg6055-53-64 06:49:00* Test Item Value Reference Range Interpretation Comments Chloride Level (test code = 2075-0) 102 98-107 [facility] CampusCarbon Dioxide Ncwdi1910-33-26 06:49:00* Test Item Value Reference Range Interpretation Comments Carbon Dioxide Level (test code = 2028-9) 31 22-29 H [facility] CampusAnion Glk8507-16-65 06:49:00* Test Item Value Reference Range Interpretation Comments Anion Gap (test code = 98977-2) 13.1 8-16 [facility] CampusBlood Urea Ckdwljqf4139-17-95 06:49:00* Test Item Value Reference Range Interpretation Comments Blood Urea Nitrogen (test code = 3094-0) 30 7-26 H [facility] CampusCreatinine2019-10-06 06:49:00* Test Item Value Reference Range Interpretation Comments Creatinine (test code = 2160-0) 1.24 0.57-1.11 H [facility] CampusBUN/Creatinine Ritin3368-86-66 06:49:00* Test Item Value Reference Range Interpretation Comments BUN/Creatinine Ratio (test code = 3097-3) 24 6-25 [facility] CampusEstimat Glomerular Filtration Rate 2019-07-24 06:49:00* Test Item Value Reference Range Interpretation Comments Estimat Glomerular Filtration Rate (test code = 531633735) 43 >60 L Ranges were taken from the National Kidney Disease Education Program and the [facility] [employer] literature.Reference ranges:60 or greater: Uuzkwr22-82 ( for 3 consecutive months): Chronic kidney disease 15 or less: Kidney failureThe Hospitals of [facility] Memorial CampusGlucose Nqatz7566-35-18 06:49:00* Test Item Value Reference Range Interpretation Comments Glucose Level (test code = WPT1085) 100 74-118 [facility] CampusCalcium Sqdoq4987-58-20 06:49:00* Test Item Value Reference Range Interpretation Comments Calcium Level (test code = 92583-0) 8.7 8.4-10.2 [facility] CampusWhite Blood Vepgi4915-86-68 06:31:00* Test Item Value Reference Range Interpretation Comments White Blood Count (test code = 6690-2) 7.50 4.8-10.8 [facility] CampusRed Blood Opafd9012-59-08 06:31:00* Test Item Value Reference Range Interpretation Comments Red Blood Count (test code = 789-8) 3.81 3.6-5.1 [facility] CampusHemoglobin2019-10-06 06:31:00* Test Item Value Reference Range Interpretation Comments Hemoglobin (test code = 20167-8) 8.6 12.0-16.0 L [facility] CampusHematocrit2019-10-06 06:31:00* Test Item Value Reference Range Interpretation Comments Hematocrit (test code = 4544-3) 29.9 34.2-44.1 L [facility] CampusMean Corpuscular Tmynej5490-98-75 06:31:00* Test Item Value Reference Range Interpretation Comments Mean Corpuscular Volume (test code = 787-2) 78.5 81-99 L [facility] CampusMean Corpuscular Ewluxcnlia4853-32-10 06:31:00* Test Item Value Reference Range Interpretation Comments Mean Corpuscular Hemoglobin (test code = 785-6) 22.6 28-32 L [facility] CampusMean Corpuscular Hemoglobin Concent 2019-07-24 06:31:00* Test Item Value Reference Range Interpretation Comments Mean Corpuscular Hemoglobin Concent (test code = 786-4) 28.8 31-35 L [facility] CampusRed Cell Distribution Okgko5227-72-17 06:31:00* Test Item Value Reference Range Interpretation Comments Red Cell Distribution Width (test code = 35030-8) 16.0 11.7 -14.4 H [facility] CampusPlatelet Wvvps2933-40-25 06:31:00* Test Item Value Reference Range Interpretation Comments Platelet Count (test code = 777-3) 230 140-360 [facility] CampusNeutrophils (%) (Auto)2019-07-24 06:31:00 * Test Item Value Reference Range Interpretation Comments Neutrophils (%) (Auto) (test code = 78517-2) 64.0 38.7-80.0 [facility] CampusLymphocytes (%) (Auto)2019-07-24 06:31:00 * Test Item Value Reference Range Interpretation Comments Lymphocytes (%) (Auto) (test code = 736-9) 25.3 18.0-39.1 [facility] CampusMonocytes (%) (Auto)2019-07-24 06:31:00* Test Item Value Reference Range Interpretation Comments Monocytes (%) (Auto) (test code = 5905-5) 9.6 4.4-11.3 [facility] CampusEosinophils (%) (Auto)2019-07-24 06:31:00 * Test Item Value Reference Range Interpretation Comments Eosinophils (%) (Auto) (test code = 713-8) 0.3 0.0-6.0 [facility] CampusBasophils (%) (Auto)2019-07-24 06:31:00* Test Item Value Reference Range Interpretation Comments Basophils (%) (Auto) (test code = 706-2) 0.3 0.0-1.0 [facility] CampusIM GRANULOCYTES %2019-07-24 06:31:00* Test Item Value Reference Range Interpretation Comments IM GRANULOCYTES % (test code = IM GRANULOCYTES %) 0.5 0.0- 1.0 [facility] CampusNeutrophils # (Auto)2019-07-24 06:31:00* Test Item Value Reference Range Interpretation Comments Neutrophils # (Auto) (test code = 751-8) 4.8 2.1-6.9 [facility] CampusLymphocytes # (Auto)2019-07-24 06:31:00* Test Item Value Reference Range Interpretation Comments Lymphocytes # (Auto) (test code = 21322-8) 1.9 1.0-3.2 [facility] CampusMonocytes # (Auto)2019-07-24 06:31:00* Test Item Value Reference Range Interpretation Comments Monocytes # (Auto) (test code = 742-7) 0.7 0.2-0.8 [facility] CampusEosinophils # (Auto)2019-07-24 06:31:00* Test Item Value Reference Range Interpretation Comments Eosinophils # (Auto) (test code = 711-2) 0.0 0.0-0.4 [facility] CampusBasophils # (Auto)2019-07-24 06:31:00* Test Item Value Reference Range Interpretation Comments Basophils # (Auto) (test code = 704-7) 0.0 0.0-0.1 [facility] CampusAbsolute Immature Granulocyte (auto 2019-07-24 06:31:00* Test Item Value Reference Range Interpretation Comments Absolute Immature Granulocyte (auto (kayla t code = Absolute Immature Granulocyte (auto) 0.04 0-0.1 [facility] CampusMODIFIED BA. 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 SWALLOW Exam Date: 07/21/19 Exam Brennan e: 0810 REPORT STATUS: Signed SD OCEDURE: X-RAY MODIFIED BARIUM SWALLOW COMPARISON: Chest CT of 07/20/2019. INDICATION: Pneumonia, sepsis Radiation Details: Fluoroscopy time: 1 .2 minutes Cumulative dose: 11.7 mGy DISCUSSION: Fluoroscopic examination was performed in conjunction with speech pathology during swallowing a variet y of thin and thick liquid consistencies. Provided images demonstrate no laryn geal penetration or aspiration. CONCLUSION: Modified barium swallow dem onstrating no laryngeal penetration or aspiration. Please refer to the speech pathology report for further details. Signed by: Isabel Fish MD on 8:40 AM Dictated By: ISABEL FISH MD 9 Transcribed By: PHAM on 07/22/19839 COPY TO: OSCAR STUART NP Platelet Zpjkazxw0208-12-82 11:57:00* Test Item Value Reference Range Interpretation Comments Platelet Estimate (test code = 46442-2) MODERATELY DECREASED [facility] CampusPlatelet Morphology Awbtepp4442-74-04 11:57:00* Test Item Value Reference Range Interpretation Comments Platelet Morphology Comment (test code = 18612-0) FEW LARGE [facility] CampusPlatelet Rsvgkugc6494-42-65 11:57:00* Test Item Value Reference Range Interpretation Comments Platelet Estimate (test code = 06625-7) MODERATELY DECREASED [facility] CampusPlatelet Morphology Krdloan4635-56-84 11:57:00* Test Item Value Reference Range Interpretation Comments Platelet Morphology Comment (test code = 80643-6) FEW LARGE [facility] CampusPlatelet Ennnrfig9365-36-50 11:57:00* Test Item Value Reference Range Interpretation Comments Platelet Estimate (test code = 72803-9) MODERATELY DECREASED [facility] CampusPlatelet Morphology Yszjkcb7652-87-52 11:57:00* Test Item Value Reference Range Interpretation Comments Platelet Morphology Comment (test code = 40082-1) FEW LARGE [facility] CampusTriglycerides Nfmjw5568-20-33 06:00:00* Test Item Value Reference Range Interpretation Comments Triglycerides Level (test code = 2571-8) 73 0-149 [facility] CampusCholesterol Uahkm5383-65-80 06:00:00* Test Item Value Reference Range Interpretation Comments Cholesterol Level (test code = 2093-3) 135 0-199 Less than 200 mg/dL Low Smbr864 - 239 mg/dL Borderline Buwo508 m g/dl and greater High Risk [facility] CampusLDL Gasohpxvnas5052-66-46 06:00:00* Test Item Value Reference Range Interpretation Comments LDL Cholesterol (test code = 2089-1) 85 60-130 [facility] Bpxpwuqcobh7307-61-63 06:00:00* Test Item Value Reference Range Interpretation Comments HDL Cholesterol (test code = 2085-9) 35 40-60 L [facility] CampusCholesterol/HDL Cntrq5769-86-96 06:00:00 * Test Item Value Reference Range Interpretation Comments Cholesterol/HDL Ratio (test code = 9830-1) 3.9 3.0-3.6 H [facility] CampusTriglycerides Chsuk2741-02-25 06:00:00* Test Item Value Reference Range Interpretation Comments Triglycerides Level (test code = 2571-8) 73 0-149 [facility] CampusCholesterol Jxqie6597-48-28 06:00:00* Test Item Value Reference Range Interpretation Comments Cholesterol Level (test code = 2093-3) 135 0-199 Less than 200 mg/dL Low Mpai885 - 239 mg/dL Borderline Twsv760 m g/dl and greater High Risk [facility] CampusLDL Fbqffjosxld6250-38-80 06:00:00* Test Item Value Reference Range Interpretation Comments LDL Cholesterol (test code = 2089-1) 85 60-130 [facility] Kesdpkmsseg5634-05-97 06:00:00* Test Item Value Reference Range Interpretation Comments HDL Cholesterol (test code = 2085-9) 35 40-60 L [facility] CampusCholesterol/HDL Czhvg2306-75-11 06:00:00 * Test Item Value Reference Range Interpretation Comments Cholesterol/HDL Ratio (test code = 9830-1) 3.9 3.0-3.6 H [facility] CampusTriglycerides Ealmf4089-81-05 06:00:00* Test Item Value Reference Range Interpretation Comments Triglycerides Level (test code = 2571-8) 73 0-149 [facility] CampusCholesterol Zdsid8860-55-79 06:00:00* Test Item Value Reference Range Interpretation Comments Cholesterol Level (test code = 2093-3) 135 0-199 Less than 200 mg/dL Low Grso753 - 239 mg/dL Borderline Qbam204 m g/dl and greater High Risk [facility] CampusLDL Vfwwiijzqtt0371-02-25 06:00:00* Test Item Value Reference Range Interpretation Comments LDL Cholesterol (test code = 2089-1) 85 60-130 [facility] CampusHDL Pskravkbckr6016-53-75 06:00:00* Test Item Value Reference Range Interpretation Comments HDL Cholesterol (test code = 2085-9) 35 40-60 L [facility] CampusCholesterol/HDL Utezm1164-73-87 06:00:00 * Test Item Value Reference Range Interpretation Comments Cholesterol/HDL Ratio (test code = 9830-1) 3.9 3.0-3.6 H [facility] CampusB-Type Natriuretic Dkunsqk8525-28-43 04:27:00* Test Item Value Reference Range Interpretation Comments B-Type Natriuretic Peptide (test code = 49265-6) 180.5 0-100 H [facility] CampusHemoglobin A1c Zxnbwnj3236-31-45 04:14:00 * Test Item Value Reference Range Interpretation Comments Hemoglobin A1c Percent (test code = Hemoglobin A1c Percent) 5.7 4.0-7.0 [facility] CampusHemoglobin A1c Kngqxae6852-71-35 04:14:00 * Test Item Value Reference Range Interpretation Comments Hemoglobin A1c Percent (test code = Hemoglobin A1c Percent) 5.7 4.0-7.0 [facility] CampusHemoglobin A1c Xhbsqns0604-94-34 04:14:00 * Test Item Value Reference Range Interpretation Comments Hemoglobin A1c Percent (test code = Hemoglobin A1c Percent) 5.7 4.0-7.0 [facility] CampusCT CHEST EE3801-51-66 18:49:00 [facility] [address] [place] [address] Patient Name: COMPA CASAS MR #: [id number] : 1950 Age/Sex: 69/F Req #: [id number] Adm Physician: ARACELY WHITE MD Ordered by: BONIFACIO BECERRA MD Report #: [id number] Location: MED/SURG2 Room/Bed: 214-1 Procedure: [id number] CT/CT CHEST WO Exam Date: 07/20/19 Exam Time: 1814 REPORT STATUS: Signed EXAM: CT C hest [...] COPY TO: BONIFACIO BECERRA MD Creatine Kinase KV2608-34-50 15:20:00* Test Item Value Reference Range Interpretation Comments Creatine Kinase MB (test code = 99373-0) 6.30 0-5.0 H [facility] CampusTroponin C4271-70-14 15:20:00* Test Item Value Reference Range Interpretation Comments Troponin I (test code = PPS0986) 0.004 0-0.300 [facility] CampusCreatine Lwthqm8398-97-80 15:13:00* Test Item Value Reference Range Interpretation Comments Creatine Kinase (test code = 2157-6) 455 29-168 H [facility] CampusCHEST 2 PDHJY8578-15-87 00:01:00 [place] [address] Patient Name: COMPA CASAS MR #: [id number] : 1950 Age/Sex: 69/F Req #: [id number] Adm Physician: Ordered by: KANNAN LLANOS MD Report #: [id number] Location: ER Room/Bed: Procedure: [id number] DX/CHEST 2 VIEWS Exam Date: 07/19/19 Exam [...] 12:04 AM Dictated By: ABNER MANDEL DO T ranscribed By: PHAM on 07/20/19 0004 COPY TO: KANNAN LLANOS MD Urine TDB6841-44-33 23:55:00* Test Item Value Reference Range Interpretation Comments Urine WBC (test code = 5821-4) 0-5 0-5 [facility] CampusUrine QQM4418-34-26 23:55:00* Test Item Value Reference Range Interpretation Comments Urine RBC (test code = 42677-0) 0-5 0-5 [facility] CampusUrine Gfvednhi2066-94-06 23:55:00* Test Item Value Reference Range Interpretation Comments Urine Bacteria (test code = 95129-2) RARE NONE [facility] CampusUrine Epithelial Zznrs0142-58-12 23:55:00 * Test Item Value Reference Range Interpretation Comments Urine Epithelial Cells (test code = 67144-5) RARE NONE [facility] CampusUrine ELI2060-68-14 23:55:00* Test Item Value Reference Range Interpretation Comments Urine WBC (test code = 5821-4) 0-5 0-5 [facility] CampusUrine ODH6501-35-75 23:55:00* Test Item Value Reference Range Interpretation Comments Urine RBC (test code = 42231-4) 0-5 0-5 [facility] CampusUrine Jwlehabl7309-18-41 23:55:00* Test Item Value Reference Range Interpretation Comments Urine Bacteria (test code = 95609-0) RARE NONE [facility] CampusUrine Epithelial Icmqz4162-81-76 23:55:00 * Test Item Value Reference Range Interpretation Comments Urine Epithelial Cells (test code = 01829-8) RARE NONE [facility] CampusUrine PWI0005-77-29 23:55:00* Test Item Value Reference Range Interpretation Comments Urine WBC (test code = 5821-4) 0-5 0-5 [facility] CampusUrine VYE8419-13-86 23:55:00* Test Item Value Reference Range Interpretation Comments Urine RBC (test code = 09833-6) 0-5 0-5 [facility] CampusUrine Bfcwurmc5701-99-84 23:55:00* Test Item Value Reference Range Interpretation Comments Urine Bacteria (test code = 93034-9) RARE NONE [facility] CampusUrine Epithelial Irvvc9180-17-42 23:55:00 * Test Item Value Reference Range Interpretation Comments Urine Epithelial Cells (test code = 59537-6) RARE NONE [facility] CampusUrine Acals3209-05-60 23:47:00* Test Item Value Reference Range Interpretation Comments Urine Color (test code = 5778-6) YELLOW YELLOW [facility] CampusUrine Tmhvjqv8290-84-13 23:47:00* Test Item Value Reference Range Interpretation Comments Urine Clarity (test code = 36918-6) CLEAR CLEAR [facility] CampusUrine Specific Qbevhkq6741-49-64 23:47:00 * Test Item Value Reference Range Interpretation Comments Urine Specific [place] (test code = 5811-5) 1.020 1.010-1.02 5 [facility] CampusUrine eR7170-65-78 23:47:00* Test Item Value Reference Range Interpretation Comments Urine pH (test code = 14017-9) 6 5-7 [facility] CampusU[facility] Leukocyte Nrbxfevx1501-18-21 23:47:00* Test Item Value Reference Range Interpretation Comments Urine Leukocyte Esterase (test code = 31576-8) NEGATIVE NEGATIV E [facility] CampusU[facility] Cyatiqt8475-66-66 23:47:00* Test Item Value Reference Range Interpretation Comments Urine Nitrite (test code = 22018-9) NEGATIVE NEGATIVE [facility] CampusU[facility] Dxjaguv7050-34-44 23:47:00* Test Item Value Reference Range Interpretation Comments Urine Protein (test code = 85714-2) NEGATIVE NEGATIVE [facility] CampusUrine Glucose (UA)2019-07-19 23:47:00* Test Item Value Reference Range Interpretation Comments Urine Glucose (UA) (test code = 39489-6) NEGATIVE NEGATIVE [facility] CampusU[facility] Wwaaifs3194-33-39 23:47:00* Test Item Value Reference Range Interpretation Comments Urine Ketones (test code = 38170-1) NEGATIVE NEGATIVE [facility] Jdgnffyewiar6018-52-47 23:47:00* Test Item Value Reference Range Interpretation Comments Urine Urobilinogen (test code = 53622-9) 1 0.2-1 [facility] Lakfdzamu4636-81-76 23:47:00* Test Item Value Reference Range Interpretation Comments Urine Bilirubin (test code = 1977-8) NEGATIVE NEGATIVE [facility] CampusU[facility] Egapm2646-25-86 23:47:00* Test Item Value Reference Range Interpretation Comments Urine Blood (test code = 22254-1) NEGATIVE NEGATIVE [facility] CampusU[facility] Lmokr6884-87-89 23:47:00* Test Item Value Reference Range Interpretation Comments Urine Color (test code = 5778-6) YELLOW YELLOW [facility] CampusU[facility] Togsyjr4065-28-05 23:47:00* Test Item Value Reference Range Interpretation Comments Urine Clarity (test code = 63085-6) CLEAR CLEAR [facility] CampusUrine Specific Rwcicnv7961-86-67 23:47:00 * Test Item Value Reference Range Interpretation Comments Urine Specific [place] (test code = 5811-5) 1.020 1.010-1.02 5 [facility] CampusU[facility] oU5353-63-58 23:47:00* Test Item Value Reference Range Interpretation Comments Urine pH (test code = 95816-8) 6 5-7 [facility] CampusU[facility] Leukocyte Cfpicydh2772-47-64 23:47:00* Test Item Value Reference Range Interpretation Comments Urine Leukocyte Esterase (test code = 21127-5) NEGATIVE NEGATIV E [facility] Tedamiv8753-84-97 23:47:00* Test Item Value Reference Range Interpretation Comments Urine Nitrite (test code = 15284-0) NEGATIVE NEGATIVE [facility] CampusU[facility] Jpogxpn5867-53-27 23:47:00* Test Item Value Reference Range Interpretation Comments Urine Protein (test code = 73085-9) NEGATIVE NEGATIVE [facility] Glucose (UA)2019-07-19 23:47:00* Test Item Value Reference Range Interpretation Comments Urine Glucose (UA) (test code = 75812-8) NEGATIVE NEGATIVE [facility] Cttkcih3352-04-58 23:47:00* Test Item Value Reference Range Interpretation Comments Urine Ketones (test code = 02783-9) NEGATIVE NEGATIVE [facility] Javdrnihfqrg3681-51-20 23:47:00* Test Item Value Reference Range Interpretation Comments Urine Urobilinogen (test code = 20911-1) 1 0.2-1 [facility] Ejojqffxa3772-05-83 23:47:00* Test Item Value Reference Range Interpretation Comments Urine Bilirubin (test code = 1977-8) NEGATIVE NEGATIVE [facility] Xvpvc3254-22-43 23:47:00* Test Item Value Reference Range Interpretation Comments Urine Blood (test code = 12669-2) NEGATIVE NEGATIVE [facility] CampusU[facility] Wgjnd5566-69-03 23:47:00* Test Item Value Reference Range Interpretation Comments Urine Color (test code = 5778-6) YELLOW YELLOW [facility] CampusU[facility] Efnibyy4286-84-71 23:47:00* Test Item Value Reference Range Interpretation Comments Urine Clarity (test code = 61220-2) CLEAR CLEAR [facility] Specific Giluakv4211-87-38 23:47:00 * Test Item Value Reference Range Interpretation Comments Urine Specific [place] (test code = 5811-5) 1.020 1.010-1.02 5 [facility] CampusU[facility] oV7836-79-99 23:47:00* Test Item Value Reference Range Interpretation Comments Urine pH (test code = 07408-5) 6 5-7 [facility] CampusU[facility] Leukocyte Lzsvazcc2890-43-31 23:47:00* Test Item Value Reference Range Interpretation Comments Urine Leukocyte Esterase (test code = 83424-4) NEGATIVE NEGATIV E [facility] CampusU[facility] Giwydmn2182-62-82 23:47:00* Test Item Value Reference Range Interpretation Comments Urine Nitrite (test code = 25872-6) NEGATIVE NEGATIVE [facility] Ohiqcgg6009-73-47 23:47:00* Test Item Value Reference Range Interpretation Comments Urine Protein (test code = 36932-9) NEGATIVE NEGATIVE [facility] CampusU[facility] Glucose (UA)2019-07-19 23:47:00* Test Item Value Reference Range Interpretation Comments Urine Glucose (UA) (test code = 92937-4) NEGATIVE NEGATIVE [facility] CampusU[facility] Dxemajv5325-20-08 23:47:00* Test Item Value Reference Range Interpretation Comments Urine Ketones (test code = 71471-8) NEGATIVE NEGATIVE [facility] CampusU[facility] Vsamblijddwe8148-32-14 23:47:00* Test Item Value Reference Range Interpretation Comments Urine Urobilinogen (test code = 70165-1) 1 0.2-1 [facility] CampusU[facility] Xxmmgskog9156-91-40 23:47:00* Test Item Value Reference Range Interpretation Comments Urine Bilirubin (test code = 1977-8) NEGATIVE NEGATIVE [facility] CampusU[facility] Ekgbs8632-23-11 23:47:00* Test Item Value Reference Range Interpretation Comments Urine Blood (test code = 08098-8) NEGATIVE NEGATIVE [facility] CampusInfluenza Virus Types A,B Antigen 2019-07-19 23:46:00* Test Item Value Reference Range Interpretation Comments Influenza Virus Types A,B Antigen (test code = 04505-5) NEGATIVE NEGATIVE [facility] CampusInfluenza Virus Types A,B Antigen 2019-07-19 23:46:00* Test Item Value Reference Range Interpretation Comments Influenza Virus Types A,B Antigen (test code = 12779-2) NEGATIVE NEGATIVE [facility] CampusLactic Acid Mhied9207-82-60 23:15:00* Test Item Value Reference Range Interpretation Comments Lactic Acid Level (test code = Lactic Acid Level) 6.8 4.5- 19.8 [facility] Ibnplgevq1488-61-00 23:15:00* Test Item Value Reference Range Interpretation Comments Total Bilirubin (test code = 1975-2) 0.6 0.2-1.2 [facility] CampusAspartate Amino Transf (AST/SGOT) 2019-07-19 23:15:00* Test Item Value Reference Range Interpretation Comments Aspartate Amino Transf (AST/SGOT) (test code = Aspartate Amino Transf (AST/SGOT)) 22 5-34 [facility] CampusAlanine Aminotransferase (ALT/SGPT) 2019-07-19 23:15:00* Test Item Value Reference Range Interpretation Comments Alanine Aminotransferase (ALT/SGPT) (test code = 1742-6) 9 0-55 [facility] CampusTotal Dipukvi7720-61-52 23:15:00* Test Item Value Reference Range Interpretation Comments Total Protein (test code = 2885-2) 7.2 6.5-8.1 [facility] CampusAlbumin2019-10-01 23:15:00* Test Item Value Reference Range Interpretation Comments Albumin (test code = 1751-7) 3.0 3.5-5.0 L [facility] CampusGlobulin2019-10-01 23:15:00* Test Item Value Reference Range Interpretation Comments Globulin (test code = 20372-6) 4.2 2.3-3.5 H [facility] CampusAlbumin/Globulin Vbbsr3231-28-41 23:15:00 * Test Item Value Reference Range Interpretation Comments Albumin/Globulin Ratio (test code = 1759-0) 0.7 0.8-2.0 L [facility] CampusAlkaline Wlgwhqdfrqx6907-29-42 23:15:00* Test Item Value Reference Range Interpretation Comments Alkaline Phosphatase (test code = 6768-6) 97 40-150 [facility] CampusLactic Acid Blyiq5625-68-45 23:15:00* Test Item Value Reference Range Interpretation Comments Lactic Acid Level (test code = Lactic Acid Level) 6.8 4.5- 19.8 [facility] CampusLactic Acid Prdnt2141-81-44 23:15:00* Test Item Value Reference Range Interpretation Comments Lactic Acid Level (test code = Lactic Acid Level) 6.8 4.5- 19.8 [facility] HLMZSEIBZ7573-18-85 07:03:00 RUN DATE: 07/13/19 [facility] *LIVE* PAGE 1 RUN TIME: 702 Specimen Inqui ry RUN USER: INTERFACE PATIENT: COMPA CASAS ACCT #: [id number] LOC: G.4SMSO U #: [id number] AGE/SX: 68/F ROOM: [facility] RE07/08/19REG DR: Alee Lao MD : 46 BED: 1 DIS: 07/08/19 STATUS: DIS IN TLOC: SPEC #: [id number] RECD: 07/08/19 STATUS: JOHNATHAN EDWARDS #: [id number] FLACO: 07/08/19 [facility] DR: Alee Lao MD ENTERED: 07/12/19 SP TYPE: SURG SPEC OTHR DR: Ela Myers MD, Terri B MD Tran, James Le Thanh MDORDERED: LEVEL 4 CODES: Q29733 - UTERUS, NOS TD600 0 - PELVIS, NOS COPIES TO: [place] [address] [place] [address] Alee Lao MD [address] [place] [address] Teresa Olson MD [address] [place] [address] Dwain Anderson MD [address] [facility] [place] [address] PROCEDURES: LE SUSAN 4 (Incomplete) TISSUES: 1. [...] NEXT PAGE RUN DATE: 07/13/19 Mimi [facility] *LIVE* PAGE 2 RUN TIME: 702 Specimen Inquiry RUN USER: INTERFACE SPEC #: [id number] PATIENT: COMPA CASAS #[id number] (Continued) - GROSS AND MICROSCOPIC FROZEN SECTION [...] cm. The endometrium has an average thickness o f 1.5 cm. The myometrium has an average [...] PRE-OP DIAGNOSIS Uterine cancer REVIEWED BY: Krissy Ritchie* CONTINUED ON NEXT PAGE RUN DATE: 07/13/19 [facility] *LIVE* PAGE 3 RUN TIME: 0703 Specimen Inquiry RUN USER: INTERFACE SPEC #: [id number] PATIENT: COMPA CASAS #[id number] (Continued) Signed SIGNATURE ON FILE Meaghan Brooks MD 07/13/19 0703 END OF REPORT SURGICAL TEZVHLVCA7861-48-27 07:03:00 RUN DATE: 07/14/19 [facility] *LIVE* PAGE 1 RUN TIME: 820 Specimen Inqui ry RUN USER: INTERFACE PATIENT: COMPA CASAS ACCT #: [id number] LOC: Stuart4SMSO U #: [id number] AGE/SX: 68/F ROOM: [facility] RE07/08/19LEEANN DR: Alee Lao MD : [birth year] BED: 1 DIS: 07/08/19 STATUS: DIS IN TLOC: SPEC #: [id number] RECD: 07/08/19 STATUS: JOHNATHAN REQ #: [id number] FLACO: 07/08/[address]: Alee Lao MD ENTERED: 07/12/19 SP TYPE: SURG SPEC OTHR DR: Ela Myers MD, Terri B MD Tran, James Le Thanh MDORDERED: LEVEL 4 CODES: U23526 - UTERUS, NOS TD600 0 - PELVIS, NOS [place] TO: [place] [address] [place] [id number] Alee Lao MD [address] [place] [address] Teresa Olson MD [address] [place] [address] Dwain Anderson MD [address] [facility], [address] [place] [address] PROCEDURES: LE SUSAN 4 (Incomplete) TISSUES: 1. UTERUS, NOS - Uterus, cervix, bilateral tubes and, ova 2. PELVIS, NOS - Pelvic, washing ADDENDUM FIND INGS Addendum #1 Entered: 07/13/19 *Specimen: Uterine corpu s, cervix, bilateral adnexa. *Procedure: Radical hystere ctomy *Lymph Node Sampling: No. *Specimen Integrity: Intact hyste rectomy specimen *Tumor Size: 3.5 cm. CONTIN UED ON NEXT PAGE RUN DATE: 07/14/19 [facility] *LIVE* PAGE 2 RUN TIME: 820 Specimen Inquiry RUN USER: INTERFACE SPEC #: [id number] KYLAH RYDER: COMPA CASAS #[id number] (Continued) ADDENDUM FINDINGS (Continued) *Histologic Type: Endometrioid [...] Received in the fresh state and labeled uteru s is a uterus together with its attached [...] fallopian CONTINUED ON NEXT PAGE RUN DATE: [facility] *LIVE* PAGE 3 RUN TIME: 820 Specimen Inquiry RU N USER: INTERFACE ---- --------SPEC #: [id number] PATIENT: COMPA CASAS #[id number] (Continued) GROSS AND MICROSCOPIC (Continued) tube measuring [...] 07/13/19 0703 END OF R [facility] [facility] XPZEOSARE3792-99-18 07:03:00 RUN DATE: 07/28/19 [facility] *LIVE* PAGE 1 RUN TIME: 814 Specimen Inqui ry RUN USER: INTERFACE PATIENT: COMPA CASAS ACCT #: G [id number] LOC: G.4SMSO U #: [id number] AGE/SX: 68/F ROOM: [facility] RE07/08/19LEEANN DR: Alee Lao MD : 46 BED: 1 DIS: 07/08/19 STATUS: DIS IN TLOC: SPEC #: [id number] RECD: 07/08/19 STATUS: JOHNATHAN EDWARDS #: [id number] FLACO: 07/08/19 [facility] DR: Alee Lao MD ENTERED: 07/12/19 SP TYPE: SURG SPEC OTHR DR: Ela Myers MD, Terri B MD Tran, James Le Thanh MDORDERED: LEVEL 4 CODES: [id number] - UTERUS, NOS TD600 0 - PELVIS, NOS COPIES TO: [place] [address] [place] [address] Alee Lao MD [address] [place] [id number] Teresa Olson MD [address] [place] [id number] Dwain Anderson MD [address] [facility], [address] [place] [address] PROCEDURES: LE SUSAN 4 (Incomplete) TISSUES: 1. UTERUS, NOS - Uterus, cervix, bilateral tubes and, ova 2. PELVIS, NOS - Pelvic, washing ADDENDUM FIND INGS Addendum #2 Entered: 07/27/19 MLH1 and PMS2 are not de tected by immunohistochemistry. MSH2 and MSH6 are expressed. Absence of staining for MLH1 and PMS 2 indicates deficiency CONTIN UED ON NEXT PAGE RUN DATE: 07/28/19 [facility] *LIVE* PAGE 2 RUN TIME: 0815 Specimen Inquiry RUN USER: INTERFACE SPEC #: [id number] KYLAH RYDER: COMPA CASAS #[id number] (Continued) ADDENDUM FINDINGS (Continued) in these mismatch repair proteins. 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 Please see attached outside reports for complete deta ils. Addendum Signed SIGNATURE ON FILE Ian Brooks MD 07/28/19 0815 Addendum #1 Entered: [...] block(s): (J)-(M). Addendum Signed SIGNATURE ON FILE Rodolfo Brooks MD 07/14/19 0821 NAEL INUED ON NEXT PAGE RUN DATE: 07/28/19 [facility] *LIVE* PAGE 3 RUN TIME: 0815 Specimen Inquiry RUN USER: INTERFACE SPEC #: [id number] PATIENT: COMPA CASAS #[id number] (Continued) FINAL DIAGNOSIS Uterus, cervix, bilateral tubes [...] its attached cervix and bilateral fallopian tubes an d ovaries. The specimen measures 6.5 x 4.5 [...] -(G)-left adnexa; (F)-(M)-cervix and uterus. Also receivd ar e 35 cc of red pelvic washing for [...] CONTINUED ON NEXT PAGE RUN DATE: 07/28/19 [facility] *LIVE* PAGE 4 RUN TIME: 0815 S radhika Inquiry RUN USER: INTERFACE SPEC #: [id number] PATIENT: COMPA CASAS #[id number] (Continued) PO ST-OP DIAGNOSIS Uterine cancer PRE-OP DIAGNOSIS Uterine cancer REVIEWED BY: Signed SIGNATURE ON FILE Meaghan Brooks MD 07/13/19 0703 END OF REPORT [id number] 17:21:00* Test Item Value Reference Range Interpretation Comments GLUBED (test code = GLUBED) 123 MG/DL 70-110 H Performed by certified coring machine operator at [facility] [id number] 13:28:00* Test Item Value Reference Range Interpretation Comments GLUBED (test code = GLUBED) 193 MG/DL 70-110 H Performed by certified coring machine operator at [facility] [id number] 08:03:00* Test Item Value Reference Range Interpretation Comments GLUBED (test code = GLUBED) 92 MG/DL 70-110 N Performed by certified coring machine operator at [facility] COMPREHENSIVE METABOLIC [id number] 05:29:00* Test Item Value Reference Range Interpretation [...] ALKP) 82 IUnit/L 20-125 N CBC W/AUTO [id number] 04:50:00* Test Item Value Reference Range Interpretation [...] DIFF REQUIRED (test code = MDIFF) NO [id number] 20:53:00* Test Item Value Reference Range Interpretation Comments GLUBED (test code = GLUBED) 184 MG/DL 70-110 H Performed by certified coring machine operator at [facility] [id number] 14:36:00* Test Item Value Reference Range Interpretation Comments GLUBED (test code = GLUBED) 114 MG/DL 70-110 H Performed by certified coring machine operator at [facility] POC ARTERIAL BLOOD [id number] 13:06:00* Test Item Value Reference Range Interpretation Comments POC ARTERIAL BLOOD GAS PH (test code = POCPHA) 7.190 7.35-7. 45 LL POC ARTERIAL BLOOD GAS PCO2 (test code = SYYWJV0T) 59.3 mmHg 35. 0-45 HH POC TCO2 ARTERIAL (test code = POCTCO2) 24.5 POC ARTERIAL BLOOD GAS PO2 (test code = PKAGZ9S) 149.1 mmHg 80-10 0.0 H POC HCO3 ARTERIAL (test code = HCNPNV0I) 22.7 MMOL/L 22.0-26.0 N POC BASE EXCESS (test code = POCBEA) -5.4 MMOL/L -4.0-4.0 L POC O2 SATURATION (test code = POCO2S) 98.6 % 90-100 N [id number] 13:06:00* Test Item Value Reference Range Interpretation Comments SODIUM (test code = NA/ABG) MEQ/L 134-147 [id number] 13:06:00* Test Item Value Reference Range Interpretation Comments POTASSIUM (test code = K/ABG) MEQ/L 3.4-5.0 [id number] 13:06:00* Test Item Value Reference Range Interpretation Comments CHLORIDE (test code = CL/ABG) MEQ/L 100-108 CREATININE [id number] 13:06:00* Test Item Value Reference Range Interpretation Comments CREATININE ABG (test code = CREAABG) mg/dL 0.6-1.0 [id number] 13:06:00* Test Item Value Reference Range Interpretation Comments HEMOGLOBIN (test code = HGB/ABG) G/DL 11.0-15.0 [id number] 13:06:00* Test Item Value Reference Range Interpretation Comments HEMATOCRIT (test code = HCT/ABG) % 33.0-45.0 POC IONIZED [id number] 13:06:00* Test Item Value Reference Range Interpretation Comments POC IONIZED CALCIUM (test code = POCCA) MMOL/L 1.12-1.32 POC [id number] 13:06:00* Test Item Value Reference Range Interpretation Comments POC GLUCOSE (test code = POCGLU) MG/DL 70-110 POC ARTERIAL BLOOD [id number] 13:06:00* Test Item Value Reference Range Interpretation Comments POC ARTERIAL BLOOD GAS PH (test code = POCPHA) 7.190 7.35-7. 45 LL POC ARTERIAL BLOOD GAS PCO2 (test code = PUCWOQ9Z) 59.3 mmHg 35. 0-45 HH POC TCO2 ARTERIAL (test code = POCTCO2) 24.5 POC ARTERIAL BLOOD GAS PO2 (test code = HKBAX5K) 149.1 mmHg 80-10 0.0 H POC HCO3 ARTERIAL (test code = WNFQNK1F) 22.7 MMOL/L 22.0-26.0 N POC BASE EXCESS (test code = POCBEA) -5.4 MMOL/L -4.0-4.0 L POC O2 SATURATION (test code = POCO2S) 98.6 % 90-100 N [id number] 13:06:00* Test Item Value Reference Range Interpretation Comments SODIUM (test code = NA/ABG) 142 MEQ/L 134-147 N [id number] 13:06:00* Test Item Value Reference Range Interpretation Comments POTASSIUM (test code = K/ABG) MEQ/L 3.4-5.0 [id number] 13:06:00* Test Item Value Reference Range Interpretation Comments CHLORIDE (test code = CL/ABG) MEQ/L 100-108 CREATININE [id number] 13:06:00* Test Item Value Reference Range Interpretation Comments CREATININE ABG (test code = CREAABG) mg/dL 0.6-1.0 [id number] 13:06:00* Test Item Value Reference Range Interpretation Comments HEMOGLOBIN (test code = HGB/ABG) G/DL 11.0-15.0 [id number] 13:06:00* Test Item Value Reference Range Interpretation Comments HEMATOCRIT (test code = HCT/ABG) % 33.0-45.0 POC IONIZED [id number] 13:06:00* Test Item Value Reference Range Interpretation Comments POC IONIZED CALCIUM (test code = POCCA) MMOL/L 1.12-1.32 POC [id number] 13:06:00* Test Item Value Reference Range Interpretation Comments POC GLUCOSE (test code = POCGLU) MG/DL 70-110 POC ARTERIAL BLOOD [id number] 13:06:00* Test Item Value Reference Range Interpretation Comments POC ARTERIAL BLOOD GAS PH (test code = POCPHA) 7.190 7.35-7. 45 LL POC ARTERIAL BLOOD GAS PCO2 (test code = FVJKBQ4V) 59.3 mmHg 35. 0-45 HH POC TCO2 ARTERIAL (test code = POCTCO2) 24.5 POC ARTERIAL BLOOD GAS PO2 (test code = SJNZN4W) 149.1 mmHg 80-10 0.0 H POC HCO3 ARTERIAL (test code = UCVUXF6B) 22.7 MMOL/L 22.0-26.0 N POC BASE EXCESS (test code = POCBEA) -5.4 MMOL/L -4.0-4.0 L POC O2 SATURATION (test code = POCO2S) 98.6 % 90-100 N [id number] 13:06:00* Test Item Value Reference Range Interpretation Comments SODIUM (test code = NA/ABG) 142 MEQ/L 134-147 N [id number] 13:06:00* Test Item Value Reference Range Interpretation Comments POTASSIUM (test code = K/ABG) 3.2 MEQ/L 3.4-5.0 L [id number] 13:06:00* Test Item Value Reference Range Interpretation Comments CHLORIDE (test code = CL/ABG) MEQ/L 100-108 CREATININE [id number] 13:06:00* Test Item Value Reference Range Interpretation Comments CREATININE ABG (test code = CREAABG) mg/dL 0.6-1.0 [id number] 13:06:00* Test Item Value Reference Range Interpretation Comments HEMOGLOBIN (test code = HGB/ABG) G/DL 11.0-15.0 [id number] 13:06:00* Test Item Value Reference Range Interpretation Comments HEMATOCRIT (test code = HCT/ABG) % 33.0-45.0 POC IONIZED [id number] 13:06:00* Test Item Value Reference Range Interpretation Comments POC IONIZED CALCIUM (test code = POCCA) MMOL/L 1.12-1.32 POC [id number] 13:06:00* Test Item Value Reference Range Interpretation Comments POC GLUCOSE (test code = POCGLU) MG/DL 70-110 POC ARTERIAL BLOOD [id number] 13:06:00* Test Item Value Reference Range Interpretation Comments POC ARTERIAL BLOOD GAS PH (test code = POCPHA) 7.190 7.35-7. 45 LL POC ARTERIAL BLOOD GAS PCO2 (test code = NKYFPQ6G) 59.3 mmHg 35. 0-45 HH POC TCO2 ARTERIAL (test code = POCTCO2) 24.5 POC ARTERIAL BLOOD GAS PO2 (test code = OZDDP9W) 149.1 mmHg 80-10 0.0 H POC HCO3 ARTERIAL (test code = WEXBIC0Z) 22.7 MMOL/L 22.0-26.0 N POC BASE EXCESS (test code = POCBEA) -5.4 MMOL/L -4.0-4.0 L POC O2 SATURATION (test code = POCO2S) 98.6 % 90-100 N [id number] 13:06:00* Test Item Value Reference Range Interpretation Comments SODIUM (test code = NA/ABG) 142 MEQ/L 134-147 N [id number] 13:06:00* Test Item Value Reference Range Interpretation Comments POTASSIUM (test code = K/ABG) 3.2 MEQ/L 3.4-5.0 L [id number] 13:06:00* Test Item Value Reference Range Interpretation Comments CHLORIDE (test code = CL/ABG) MEQ/L 100-108 CREATININE [id number] 13:06:00* Test Item Value Reference Range Interpretation Comments CREATININE ABG (test code = CREAABG) mg/dL 0.6-1.0 [id number] 13:06:00* Test Item Value Reference Range Interpretation Comments HEMOGLOBIN (test code = HGB/ABG) G/DL 11.0-15.0 [id number] 13:06:00* Test Item Value Reference Range Interpretation Comments HEMATOCRIT (test code = HCT/ABG) % 33.0-45.0 POC IONIZED [id number] 13:06:00* Test Item Value Reference Range Interpretation Comments POC IONIZED CALCIUM (test code = POCCA) 1.06 MMOL/L 1.12-1.32 L POC [id number] 13:06:00* Test Item Value Reference Range Interpretation Comments POC GLUCOSE (test code = POCGLU) MG/DL 70-110 POC ARTERIAL BLOOD [id number] 13:06:00* Test Item Value Reference Range Interpretation Comments POC ARTERIAL BLOOD GAS PH (test code = POCPHA) 7.190 7.35-7. 45 LL POC ARTERIAL BLOOD GAS PCO2 (test code = NZNTDA4Z) 59.3 mmHg 35. 0-45 HH POC TCO2 ARTERIAL (test code = POCTCO2) 24.5 POC ARTERIAL BLOOD GAS PO2 (test code = NEGHS5U) 149.1 mmHg 80-10 0.0 H POC HCO3 ARTERIAL (test code = CQOZYH2M) 22.7 MMOL/L 22.0-26.0 N POC BASE EXCESS (test code = POCBEA) -5.4 MMOL/L -4.0-4.0 L POC O2 SATURATION (test code = POCO2S) 98.6 % 90-100 N [id number] 13:06:00* Test Item Value Reference Range Interpretation Comments SODIUM (test code = NA/ABG) 142 MEQ/L 134-147 N [id number] 13:06:00* Test Item Value Reference Range Interpretation Comments POTASSIUM (test code = K/ABG) 3.2 MEQ/L 3.4-5.0 L [id number] 13:06:00* Test Item Value Reference Range Interpretation Comments CHLORIDE (test code = CL/ABG) MEQ/L 100-108 CREATININE [id number] 13:06:00* Test Item Value Reference Range Interpretation Comments CREATININE ABG (test code = CREAABG) mg/dL 0.6-1.0 [id number] 13:06:00* Test Item Value Reference Range Interpretation Comments HEMOGLOBIN (test code = HGB/ABG) G/DL 11.0-15.0 [id number] 13:06:00* Test Item Value Reference Range Interpretation Comments HEMATOCRIT (test code = HCT/ABG) % 33.0-45.0 POC IONIZED [id number] 13:06:00* Test Item Value Reference Range Interpretation Comments POC IONIZED CALCIUM (test code = POCCA) 1.06 MMOL/L 1.12-1.32 L POC [id number] 13:06:00* Test Item Value Reference Range Interpretation Comments POC GLUCOSE (test code = POCGLU) 103 MG/DL 70-110 N POC ARTERIAL BLOOD [id number] 13:06:00* Test Item Value Reference Range Interpretation Comments POC ARTERIAL BLOOD GAS PH (test code = POCPHA) 7.190 7.35-7. 45 LL POC ARTERIAL BLOOD GAS PCO2 (test code = DINIZO3N) 59.3 mmHg 35. 0-45 HH POC TCO2 ARTERIAL (test code = POCTCO2) 24.5 POC ARTERIAL BLOOD GAS PO2 (test code = QCFSD2Q) 149.1 mmHg 80-10 0.0 H POC HCO3 ARTERIAL (test code = XAZPAQ6A) 22.7 MMOL/L 22.0-26.0 N POC BASE EXCESS (test code = POCBEA) -5.4 MMOL/L -4.0-4.0 L POC O2 SATURATION (test code = POCO2S) 98.6 % 90-100 N [id number] 13:06:00* Test Item Value Reference Range Interpretation Comments SODIUM (test code = NA/ABG) 142 MEQ/L 134-147 N [id number] 13:06:00* Test Item Value Reference Range Interpretation Comments POTASSIUM (test code = K/ABG) 3.2 MEQ/L 3.4-5.0 L [id number] 13:06:00* Test Item Value Reference Range Interpretation Comments CHLORIDE (test code = CL/ABG) MEQ/L 100-108 CREATININE [id number] 13:06:00* Test Item Value Reference Range Interpretation Comments CREATININE ABG (test code = CREAABG) mg/dL 0.6-1.0 [id number] 13:06:00* Test Item Value Reference Range Interpretation Comments HEMOGLOBIN (test code = HGB/ABG) G/DL 11.0-15.0 [id number] 13:06:00* Test Item Value Reference Range Interpretation Comments HEMATOCRIT (test code = HCT/ABG) 23 % 33.0-45.0 L POC IONIZED [id number] 13:06:00* Test Item Value Reference Range Interpretation Comments POC IONIZED CALCIUM (test code = POCCA) 1.06 MMOL/L 1.12-1.32 L POC [id number] 13:06:00* Test Item Value Reference Range Interpretation Comments POC GLUCOSE (test code = POCGLU) 103 MG/DL 70-110 N POC ARTERIAL BLOOD [id number] 13:06:00* Test Item Value Reference Range Interpretation Comments POC ARTERIAL BLOOD GAS PH (test code = POCPHA) 7.190 7.35-7. 45 LL POC ARTERIAL BLOOD GAS PCO2 (test code = DRHLHL2Q) 59.3 mmHg 35. 0-45 HH POC TCO2 ARTERIAL (test code = POCTCO2) 24.5 POC ARTERIAL BLOOD GAS PO2 (test code = HRQYO8D) 149.1 mmHg 80-10 0.0 H POC HCO3 ARTERIAL (test code = ICWEXC7Z) 22.7 MMOL/L 22.0-26.0 N POC BASE EXCESS (test code = POCBEA) -5.4 MMOL/L -4.0-4.0 L POC O2 SATURATION (test code = POCO2S) 98.6 % 90-100 N [id number] 13:06:00* Test Item Value Reference Range Interpretation Comments SODIUM (test code = NA/ABG) 142 MEQ/L 134-147 N [id number] 13:06:00* Test Item Value Reference Range Interpretation Comments POTASSIUM (test code = K/ABG) 3.2 MEQ/L 3.4-5.0 L [id number] 13:06:00* Test Item Value Reference Range Interpretation Comments CHLORIDE (test code = CL/ABG) MEQ/L 100-108 CREATININE [id number] 13:06:00* Test Item Value Reference Range Interpretation Comments CREATININE ABG (test code = CREAABG) mg/dL 0.6-1.0 [id number] 13:06:00* Test Item Value Reference Range Interpretation Comments HEMOGLOBIN (test code = HGB/ABG) 7.7 G/DL 11.0-15.0 L [id number] 13:06:00* Test Item Value Reference Range Interpretation Comments HEMATOCRIT (test code = HCT/ABG) 23 % 33.0-45.0 L POC IONIZED [id number] 13:06:00* Test Item Value Reference Range Interpretation Comments POC IONIZED CALCIUM (test code = POCCA) 1.06 MMOL/L 1.12-1.32 L POC [id number] 13:06:00* Test Item Value Reference Range Interpretation Comments POC GLUCOSE (test code = POCGLU) 103 MG/DL 70-110 N POC ARTERIAL BLOOD [id number] 13:06:00* Test Item Value Reference Range Interpretation Comments POC ARTERIAL BLOOD GAS PH (test code = POCPHA) 7.190 7.35-7. 45 LL POC ARTERIAL BLOOD GAS PCO2 (test code = LFHOPK2J) 59.3 mmHg 35. 0-45 HH POC TCO2 ARTERIAL (test code = POCTCO2) 24.5 POC ARTERIAL BLOOD GAS PO2 (test code = KTAZV0B) 149.1 mmHg 80-10 0.0 H POC HCO3 ARTERIAL (test code = YPWNGU2R) 22.7 MMOL/L 22.0-26.0 N POC BASE EXCESS (test code = POCBEA) -5.4 MMOL/L -4.0-4.0 L POC O2 SATURATION (test code = POCO2S) 98.6 % 90-100 N [id number] 13:06:00* Test Item Value Reference Range Interpretation Comments SODIUM (test code = NA/ABG) 142 MEQ/L 134-147 N [id number] 13:06:00* Test Item Value Reference Range Interpretation Comments POTASSIUM (test code = K/ABG) 3.2 MEQ/L 3.4-5.0 L [id number] 13:06:00* Test Item Value Reference Range Interpretation Comments CHLORIDE (test code = CL/ABG) 112 MEQ/L 100-108 H CREATININE [id number] 13:06:00* Test Item Value Reference Range Interpretation Comments CREATININE ABG (test code = CREAABG) mg/dL 0.6-1.0 KOWWBYKBWY9906-03-18 13:06:00* Test Item Value Reference Range Interpretation Comments HEMOGLOBIN (test code = HGB/ABG) 7.7 G/DL 11.0-15.0 L [id number] 13:06:00* Test Item Value Reference Range Interpretation Comments HEMATOCRIT (test code = HCT/ABG) 23 % 33.0-45.0 L POC IONIZED [id number] 13:06:00* Test Item Value Reference Range Interpretation Comments POC IONIZED CALCIUM (test code = POCCA) 1.06 MMOL/L 1.12-1.32 L POC [id number] 13:06:00* Test Item Value Reference Range Interpretation Comments POC GLUCOSE (test code = POCGLU) 103 MG/DL 70-110 N POC ARTERIAL BLOOD [id number] 13:06:00* Test Item Value Reference Range Interpretation Comments POC ARTERIAL BLOOD GAS PH (test code = POCPHA) 7.190 7.35-7. 45 LL POC ARTERIAL BLOOD GAS PCO2 (test code = BEBZLB4V) 59.3 mmHg 35. 0-45 HH POC TCO2 ARTERIAL (test code = POCTCO2) 24.5 POC ARTERIAL BLOOD GAS PO2 (test code = DTQHO3Y) 149.1 mmHg 80-10 0.0 H POC HCO3 ARTERIAL (test code = YLSRFQ1Q) 22.7 MMOL/L 22.0-26.0 N POC BASE EXCESS (test code = POCBEA) -5.4 MMOL/L -4.0-4.0 L POC O2 SATURATION (test code = POCO2S) 98.6 % 90-100 N [id number] 13:06:00* Test Item Value Reference Range Interpretation Comments SODIUM (test code = NA/ABG) 142 MEQ/L 134-147 N [id number] 13:06:00* Test Item Value Reference Range Interpretation Comments POTASSIUM (test code = K/ABG) 3.2 MEQ/L 3.4-5.0 L [id number] 13:06:00* Test Item Value Reference Range Interpretation Comments CHLORIDE (test code = CL/ABG) 112 MEQ/L 100-108 H CREATININE [id number] 13:06:00* Test Item Value Reference Range Interpretation Comments CREATININE ABG (test code = CREAABG) 1.0 mg/dL 0.6-1.0 N [id number] 13:06:00* Test Item Value Reference Range Interpretation Comments HEMOGLOBIN (test code = HGB/ABG) 7.7 G/DL 11.0-15.0 L [id number] 13:06:00* Test Item Value Reference Range Interpretation Comments HEMATOCRIT (test code = HCT/ABG) 23 % 33.0-45.0 L POC IONIZED [id number] 13:06:00* Test Item Value Reference Range Interpretation Comments POC IONIZED CALCIUM (test code = POCCA) 1.06 MMOL/L 1.12-1.32 L POC [id number] 13:06:00* Test Item Value Reference Range Interpretation Comments POC GLUCOSE (test code = POCGLU) 103 MG/DL 70-110 N BASIC METABOLIC [id number] 09:25:00* Test Item Value Reference Range Interpretation [...] CA) 8.4 mg/dL 8.0-10.5 N BASIC METABOLIC [id number] 09:12:00* Test Item Value Reference Range Interpretation [...] code = CA) 8.4 mg/dL 8.0-10.5 N [id number] 09:04:00* Test Item Value Reference Range Interpretation Comments GLUBED (test code = GLUBED) 169 MG/DL 70-110 H Performed by certified coring machine operator at [facility] - XR CHEST 2 [id number] 14:06:00 FAX: Teresa Rhoades [phone] [place]: St: PRE FAX: Dwain Anderson [phone] Name: COMPA CASAS [facility] : 1950 Age/S: 68/F [address] [place] [address] Unit #: [id number] Loc: [place] [address] Phys: Teresa Olson MD Acct: [id number] Dis Date: Status: PRE SDC PHONE #: [phone] Exam Date: 07/05/2019 1232 FAX #: [phone] Reason: PREOP- UTERINE CA EXAMS: CPT CODE: [id number] XR CHEST 2 V 90199 CHEST RADIOGRAPHS - PA AND LATERAL: COMPARISON: April 01, 2019 CLINICAL HISTORY: PREOP- UTERINE CA There is mild stable cardiomegaly. Diffuse bilateral interstitial prominence is present, similar to the prior study. Findings likely represent interstitial fibrosis. No focal infiltrates are seen. There is no pneumothorax. IMPRESSION: Probable chronic changes of interstitial fibrosis. Stable cardiomegaly. at 1406 Reported and signed by: Yariel Vasquez M.D. CC: Teresa Olson MD; Dwain Valentino MD Technologist: Shell john RT(R) Trnscrd Date/Time/By: 07/05/2019 ( 0180) : By: [email or web address] Orig Print D/T: S: 07/05/2019 (9063) PAGE 1 Signed Report PROTHROMBIN [id number] 13:41:00* Test Item Value Reference Range Interpretation [...] Infarction (to prevent recurrent infarct). THROMBOPLASTIN TIME [id number] 13:41:00* Test Item Value Reference Range Interpretation Comments THROMBOPLASTIN TIME PARTIAL (test code = PTT) 27.7 Seconds 25.0-39. 5 N Therapeutic Range: 50.4 - 88.3 Seconds Effective 02/01/2019 BASIC METABOLIC [id number] 13:33:00* Test Item Value Reference Range Interpretation [...] CA) 8.5 mg/dL 8.0-10.5 N CBC W/AUTO [id number] 13:21:00* Test Item Value Reference Range Interpretation [...] REQUIRED (test code = MDIFF) NO Sodium [id number] 20:14:00* Test Item Value Reference Range Interpretation Comments Sodium Level (test code = 2951-2) 140 136-145 [facility] Ddsir0497-24-64 20:14:00* Test Item Value Reference Range Interpretation Comments Potassium Level (test code = 2823-3) 3.7 3.5-5.1 [facility]Chloride Okgpj5915-83-64 20:14:00* Test Item Value Reference Range Interpretation Comments Chloride Level (test code = 2075-0) 103 98-107 [facility] CampusCarbon Dioxide Altsm7247-82-27 20:14:00* Test Item Value Reference Range Interpretation Comments Carbon Dioxide Level (test code = 2028-9) 27 22-29 [facility] CampusAnion [id number] 20:14:00* Test Item Value Reference Range Interpretation Comments Anion Gap (test code = 06054-9) 13.7 8-16 [facility] CampusBlood Urea Akwhwfup5952-11-49 20:14:00* Test Item Value Reference Range Interpretation Comments Blood Urea Nitrogen (test code = 3094-0) 24 7- [facility] CampusCreatinine2019-08-25 20:14:00* Test Item Value Reference Range Interpretation Comments Creatinine (test code = 2160-0) 1.23 0.57-1.11 H [facility] CampusBUN/Creatinine Buimw9313-16-63 20:14:00* Test Item Value Reference Range Interpretation Comments BUN/Creatinine Ratio (test code = 3097-3) 04-12 [facility] CampusEstimat Glomerular Filtration Rate 2019-06-12 20:14:00* Test Item Value Reference Range Interpretation Comments Estimat Glomerular Filtration Rate (test code = 130209284) 43 >60 L Ranges were taken from the National Kidney Disease Education Program and the [facility] [employer] literature.Reference ranges:60 or greater: Frwgpq29-36 ( for 3 consecutive months): Chronic kidney disease 15 or less: Kidney failureThe Hospitals of Providence Memorial CampusGlucose Mefmi6335-86-97 20:14:00* Test Item Value Reference Range Interpretation Comments Glucose Level (test code = QIE3531) 139 74-118 H [facility] CampusCalcium Zdfzj8978-18-12 20:14:00* Test Item Value Reference Range Interpretation Comments Calcium Level (test code = 48605-9) 9.2 8.4-10.2 [facility] CampusProthrombin Zkuy6241-82-14 20:13:00* Test Item Value Reference Range Interpretation Comments Prothrombin Time (test code = 5902-2) 14.5 11.9-14.5 [facility] CampusProthromb Time International Ratio 2019-06-12 20:13:00* Test Item Value Reference Range Interpretation Comments Prothromb Time International Ratio (test code = 6301-6) 1.08 Oral Anticoagulant Therapy INR Values:1. Low Intensity Therapy 1.5 - 2.02 . Moderate Intensity Therapy 2.0 - 3.03. High Intensity Therapy(1) 2.5 - 3. 54. High Intensity Therapy(2) 3.0 - 4.05. Panic Value INR > 5.0 [facility] CampusActivated Partial Thromboplast Time 2019-06-12 20:13:00* Test Item Value Reference Range Interpretation Comments Activated Partial Thromboplast Time (test code = 36167-0) 28.0 23.8-35.5 [facility] CampusProthrombin [id number] 20:13:00* Test Item Value Reference Range Interpretation Comments Prothrombin Time (test code = 5902-2) 14.5 11.9-14.5 [facility]Pro[facility] International Ratio 2019-06-12 20:13:00* Test Item Value Reference Range Interpretation Comments Prothromb Time International Ratio (test code = 6301-6) 1.08 Oral Anticoagulant Therapy INR Values:1. Low Intensity Therapy 1.5 - 2.02 . Moderate Intensity Therapy 2.0 - 3.03. High Intensity Therapy(1) 2.5 - 3. 54. High Intensity Therapy(2) 3.0 - 4.05. Panic Value INR > 5.0 [facility] Thromboplast Time 2019-06-12 20:13:00* Test Item Value Reference Range Interpretation Comments Activated Partial Thromboplast Time (test code = 77941-1) 28.0 23.8-35.5 [facility]Proth[facility] [id number] 20:13:00* Test Item Value Reference Range Interpretation Comments Prothrombin Time (test code = 5902-2) 14.5 11.9-14.5 [facility] International Ratio 2019-06-12 20:13:00* Test Item Value Reference Range Interpretation Comments Prothromb Time International Ratio (test code = 6301-6) 1.08 Oral Anticoagulant Therapy INR Values:1. Low Intensity Therapy 1.5 - 2.02 . Moderate Intensity Therapy 2.0 - 3.03. High Intensity Therapy(1) 2.5 - 3. 54. High Intensity Therapy(2) 3.0 - 4.05. Panic Value INR > 5.0 [facility] Thromboplast Time 2019-06-12 20:13:00* Test Item Value Reference Range Interpretation Comments Activated Partial Thromboplast Time (test code = 05014-2) 28.0 23.8-35.5 [facility] CampusWhite Blood Nhgjv6998-72-62 19:51:00* Test Item Value Reference Range Interpretation Comments White Blood Count (test code = 6690-2) 9.57 4.8-10.8 [facility] CampusRed Blood Fanbm9843-39-61 19:51:00* Test Item Value Reference Range Interpretation Comments Red Blood Count (test code = 789-8) 4.11 3.6-5.1 [facility] CampusHemoglobin2019-08-25 19:51:00* Test Item Value Reference Range Interpretation Comments Hemoglobin (test code = 04813-7) 10.1 12.0-16.0 L [facility] CampusHematocrit2019-08-25 19:51:00* Test Item Value Reference Range Interpretation Comments Hematocrit (test code = 4544-3) 32.8 34.2-44.1 L [facility] CampusMean Corpuscular Zdjsly3968-61-97 19:51:00* Test Item Value Reference Range Interpretation Comments Mean Corpuscular Volume (test code = 787-2) 79.8 81-99 L [facility] CampusMean Corpuscular Zpejzqhrja9603-59-23 19:51:00* Test Item Value Reference Range Interpretation Comments Mean Corpuscular Hemoglobin (test code = 785-6) 24.6 28-32 L [facility] CampusMean Corpuscular Hemoglobin Concent 2019-06-12 19:51:00* Test Item Value Reference Range Interpretation Comments Mean Corpuscular Hemoglobin Concent (test code = 786-4) 30.8 31-35 L [facility] CampusRed Cell Distribution Tsiel3335-22-53 19:51:00* Test Item Value Reference Range Interpretation Comments Red Cell Distribution Width (test code = 14160-3) 15.4 11.7 -14.4 H [facility] CampusPlatelet Wymak1810-94-55 19:51:00* Test Item Value Reference Range Interpretation Comments Platelet Count (test code = 777-3) 194 140-360 [facility] CampusNeutrophils (%) (Auto)2019-06-12 19:51:00 * Test Item Value Reference Range Interpretation Comments Neutrophils (%) (Auto) (test code = 02125-1) 70.7 38.7-80.0 [facility] CampusLymphocytes (%) (Auto)2019-06-12 19:51:00 * Test Item Value Reference Range Interpretation Comments Lymphocytes (%) (Auto) (test code = 736-9) 16.3 18.0-39.1 L [facility] CampusMonocytes (%) (Auto)2019-06-12 19:51:00* Test Item Value Reference Range Interpretation Comments Monocytes (%) (Auto) (test code = 5905-5) 9.1 4.4-11.3 [facility] CampusEosinophils (%) (Auto)2019-06-12 19:51:00 * Test Item Value Reference Range Interpretation Comments Eosinophils (%) (Auto) (test code = 713-8) 3.1 0.0-6.0 [facility] CampusBasophils (%) (Auto)2019-06-12 19:51:00* Test Item Value Reference Range Interpretation Comments Basophils (%) (Auto) (test code = 706-2) 0.4 0.0-1.0 [facility] CampusIM GRANULOCYTES %2019-06-12 19:51:00* Test Item Value Reference Range Interpretation Comments IM GRANULOCYTES % (test code = IM GRANULOCYTES %) 0.4 0.0- 1.0 [facility] CampusNeutrophils # (Auto)2019-06-12 19:51:00* Test Item Value Reference Range Interpretation Comments Neutrophils # (Auto) (test code = 751-8) 6.8 2.1-6.9 [facility] CampusLymphocytes # (Auto)2019-06-12 19:51:00* Test Item Value Reference Range Interpretation Comments Lymphocytes # (Auto) (test code = 19261-2) 1.6 1.0-3.2 [facility] CampusMonocytes # (Auto)2019-06-12 19:51:00* Test Item Value Reference Range Interpretation Comments Monocytes # (Auto) (test code = 742-7) 0.9 0.2-0.8 H [facility] CampusEosinophils # (Auto)2019-06-12 19:51:00* Test Item Value Reference Range Interpretation Comments Eosinophils # (Auto) (test code = 711-2) 0.3 0.0-0.4 [facility] CampusBasophils # (Auto)2019-06-12 19:51:00* Test Item Value Reference Range Interpretation Comments Basophils # (Auto) (test code = 704-7) 0.0 0.0-0.1 [facility] CampusAbsolute Immature Granulocyte (auto 2019-06-12 19:51:00* Test Item Value Reference Range Interpretation Comments Absolute Immature Granulocyte (auto (kayla t code = Absolute Immature Granulocyte (auto) 0.04 0-0.1 [facility] CampusBASIC METABOLIC YTUMD2959-39-28 10:32:00 * Test Item Value Reference Range [...] CA) 8.8 mg/dL 8.5-10.1 N BASIC METABOLIC YZICT3479-44-77 10:15:00* Test Item Value Reference Range Interpretation [...] CA) mg/dL 8.5-10.1 - XR CHEST 2 H1632-87-98 10:02:00 FAX: Bonifacio Iyer MD [phone] [place]: O St: REG FAX: Dwain Anderson [facility] [phone] Name: COMPA CASAS [facility] : 1950 Age/S: 68/F [address] [facility] Unit #: [id number] Loc: [place] [address] Phys: Bonifacio Becerra MD Acct: [id number] Dis Date: Status: REG CLI PHONE #: [phone] Exam Date: 04/01/2019 0945 FAX #: [phone] Reason: 647.33,F41.9,I10,E66.0,J96.11,R05 EXAMS: CPT CODE: [id number] XR CHEST 2 V 93654 HISTORY: R05/I10. AP and lateral view of [...] (R) Trnscrd Date/Time/By: 04/01/2019 (1002) : By: SherriTH4 Sesar g Print D/T: S: 04/01/2019 (1005) PAGE 1 Signed Report US CHEST (INCL MEDIASTINUM) 2018-04-05 12:18:00 [place] [address] Patient Name: COMPA CASAS MR #: [id number] : 1950 Age/Sex: 67/F Req #: [id number] Adm Physician: Ordered by: BONIFACIO BECERRA MD Report #: [id number] Location: Room/Bed: Procedure: US/US CHEST (INCL MEDIASTIN UM) Exam Date: 04/05/18 Exam Time: 1126 REPORT STATUS: Signed PROCEDURE: US CHEST (INCL MEDIASTINUM) COMPARISON: None . INDICATION: Large left pleural effusion reported by outside imaging. ZACARIAS HNIQUE: Balderas scale color Doppler ultrasound chest PROCEDURE: The patie nt was transferred from an outside facility for thoracentesis given reported large pleural effusion on outside imaging. Oil Pit Attendant ultrasound was performed of the chest. FINDINGS: No evidence of pleural effusion within the right or left chest. CONCLUSION: There is no evidence of significant flui d volume within the chest. Thoracentesis was aborted. Dictated by: Van Ruiz M.D. on 04/05/2018 at 12:18 Electronically approved b y: Van Ruiz M.D. on 04/05/2018 at 12:18 Dictated By : VAN RUIZ MD 121 8 Transcribed By: SOLO on 04/05/18 1218 COPY TO: BONIFACIO BECERRA MD Phosphorus Bnibq0669-04-85 08:34:00* Test Item Value Reference Range Interpretation Comments Phosphorus Level (test code = JNB8266) 3.0 2.3-4.7 [facility] Centerodium Tuzzm2560-21-89 08:26:00* Test Item Value Reference Range Interpretation Comments Sodium Level (test code = 2951-2) 140 136-145 [facility] CampusPotassium Pkwai2360-44-67 08:26:00* Test Item Value Reference Range Interpretation Comments Potassium Level (test code = 2823-3) 3.3 3.5-5.1 L [facility] CampusChloride Utdgo6025-54-60 08:26:00* Test Item Value Reference Range Interpretation Comments Chloride Level (test code = 2075-0) 98 98-107 [facility] CampusCarbon Dioxide Anwuh6648-54-47 08:26:00* Test Item Value Reference Range Interpretation Comments Carbon Dioxide Level (test code = 2028-9) 35 22-29 H [facility] CampusAnion Nka1256-32-14 08:26:00* Test Item Value Reference Range Interpretation Comments Anion Gap (test code = 81031-3) 10.3 8-16 [facility] CampusBlood Urea Kumxgnhl6123-39-74 08:26:00* Test Item Value Reference Range Interpretation Comments Blood Urea Nitrogen (test code = 3094-0) 32 7-26 H [facility] CampusCreatinine2018-03-22 08:26:00* Test Item Value Reference Range Interpretation Comments Creatinine (test code = 2160-0) 0.54 0.57-1.11 L [facility] CampusBUN/Creatinine Ukhvi3501-15-07 08:26:00* Test Item Value Reference Range Interpretation Comments BUN/Creatinine Ratio (test code = 3097-3) 59 6-25 H [facility] CampusEstimat Glomerular Filtration Rate 2018-01-07 08:26:00* Test Item Value Reference Range Interpretation Comments Estimat Glomerular Filtration Rate (test code = 72124-3) 60- >60 Ranges were taken from the National Kidney Disease Education Program and the [facility] Kidney Foundation literature.Reference ranges:60 or greater: Nwbdmr43-66 ( for 3 consecutive months): Chronic kidney disease 15 or less: Kidney failureThe Hospitals of Providence Memorial CampusGlucose Rrffm2915-63-32 08:26:00* Test Item Value Reference Range Interpretation Comments Glucose Level (test code = MWQ3854) 183 74-118 H [facility] CampusCalcium Wmyys3351-34-15 08:26:00* Test Item Value Reference Range Interpretation Comments Calcium Level (test code = 73267-7) 8.4 8.4-10.2 [facility] CampusMagnesium Abnvt5244-21-13 08:26:00* Test Item Value Reference Range Interpretation Comments Magnesium Level (test code = 60755-8) 1.4 1.3-2.1 [facility] CampusBedside Kidppbb6637-35-09 00:17:00* Test Item Value Reference Range Interpretation Comments Bedside Glucose (test code = 61254-7) 202 70-120 H Meter ID: [id number] Hospitals of [facility] CampusWhite Blood Count 2018-01-05 06:23:00* Test Item Value Reference Range Interpretation Comments White Blood Count (test code = 6690-2) 16.48 4.8-10.8 H [facility] CampusRed Blood Cguba0356-90-64 06:23:00* Test Item Value Reference Range Interpretation Comments Red Blood Count (test code = 789-8) 3.86 3.6-5.1 [facility] CampusHemoglobin2018-03-20 06:23:00* Test Item Value Reference Range Interpretation Comments Hemoglobin (test code = 11333-3) 10.5 12.0-16.0 L [facility] CampusHematocrit2018-03-20 06:23:00* Test Item Value Reference Range Interpretation Comments Hematocrit (test code = 4544-3) 32.7 34.2-44.1 L [facility] CampusMean Corpuscular Bptnrr8419-22-08 06:23:00* Test Item Value Reference Range Interpretation Comments Mean Corpuscular Volume (test code = 787-2) 84.7 81-99 [facility] CampusMean Corpuscular Thfpkicsaw8354-04-68 06:23:00* Test Item Value Reference Range Interpretation Comments Mean Corpuscular Hemoglobin (test code = 785-6) 27.2 28-32 L [facility] CampusMean Corpuscular Hemoglobin Concent 2018-01-05 06:23:00* Test Item Value Reference Range Interpretation Comments Mean Corpuscular Hemoglobin Concent (test code = 786-4) 32.1 31-35 [facility] CampusRed Cell Distribution Uorwx3981-48-79 06:23:00* Test Item Value Reference Range Interpretation Comments Red Cell Distribution Width (test code = 58517-9) 17.2 11.7 -14.4 H [facility] CampusPlatelet Efgwm2405-81-55 06:23:00* Test Item Value Reference Range Interpretation Comments Platelet Count (test code = 777-3) 196 140-360 [facility] CampusNeutrophils (%) (Auto)2018-01-05 06:23:00 * Test Item Value Reference Range Interpretation Comments Neutrophils (%) (Auto) (test code = 28298-8) 84.7 38.7-80.0 H [facility] CampusLymphocytes (%) (Auto)2018-01-05 06:23:00 * Test Item Value Reference Range Interpretation Comments Lymphocytes (%) (Auto) (test code = 736-9) 6.4 18.0-39.1 L [facility] CampusMonocytes (%) (Auto)2018-01-05 06:23:00* Test Item Value Reference Range Interpretation Comments Monocytes (%) (Auto) (test code = 5905-5) 6.5 4.4-11.3 [facility] CampusEosinophils (%) (Auto)2018-01-05 06:23:00 * Test Item Value Reference Range Interpretation Comments Eosinophils (%) (Auto) (test code = 713-8) 1.8 0.0-6.0 [facility] CampusBasophils (%) (Auto)2018-01-05 06:23:00* Test Item Value Reference Range Interpretation Comments Basophils (%) (Auto) (test code = 706-2) 0.1 0.0-1.0 [facility] CampusIM GRANULOCYTES %2018-01-05 06:23:00* Test Item Value Reference Range Interpretation Comments IM GRANULOCYTES % (test code = IM GRANULOCYTES %) 0.5 0.0- 1.0 [facility] CampusNeutrophils # (Auto)2018-01-05 06:23:00* Test Item Value Reference Range Interpretation Comments Neutrophils # (Auto) (test code = 751-8) 14.0 2.1-6.9 H [facility] CampusLymphocytes # (Auto)2018-01-05 06:23:00* Test Item Value Reference Range Interpretation Comments Lymphocytes # (Auto) (test code = 14885-8) 1.1 1.0-3.2 [facility] CampusMonocytes # (Auto)2018-01-05 06:23:00* Test Item Value Reference Range Interpretation Comments Monocytes # (Auto) (test code = 742-7) 1.1 0.2-0.8 H [facility] CampusEosinophils # (Auto)2018-01-05 06:23:00* Test Item Value Reference Range Interpretation Comments Eosinophils # (Auto) (test code = 711-2) 0.3 0.0-0.4 [facility] CampusBasophils # (Auto)2018-01-05 06:23:00* Test Item Value Reference Range Interpretation Comments Basophils # (Auto) (test code = 704-7) 0.0 0.0-0.1 [facility] CampusAbsolute Immature Granulocyte (auto 2018-01-05 06:23:00* Test Item Value Reference Range Interpretation Comments Absolute Immature Granulocyte (auto (kayla t code = Absolute Immature Granulocyte (auto) 0.09 0-0.1 [facility] CampusGastric Fluid Occult Rsula8638-28-84 05:44:00* Test Item Value Reference Range Interpretation Comments Gastric Fluid Occult Blood (test code = 44132-4) TEST NOT PERFORMED BY REFERENCE LAB; NOT HANDLED PROPERLY BY [facility] CenterDifferential Total Cells Counted 2018-01-03 13:57:00* Test Item Value Reference Range Interpretation Comments Differential Total Cells Counted (test code = Differlewis tial Total Cells Counted) 100 [facility] CampusNeutrophils % (Manual)2018-01-03 13:57:00 * Test Item Value Reference Range Interpretation Comments Neutrophils % (Manual) (test code = 75924-9) 90 40-74 H [facility] CampusBand Neutrophils %2018-01-03 13:57:00* Test Item Value Reference Range Interpretation Comments Band Neutrophils % (test code = 764-1) 1 [facility] CampusLymphocytes % (Manual)2018-01-03 13:57:00 * Test Item Value Reference Range Interpretation Comments Lymphocytes % (Manual) (test code = 737-7) 1 19-48 L [facility] CampusMonocytes % (Manual)2018-01-03 13:57:00* Test Item Value Reference Range Interpretation Comments Monocytes % (Manual) (test code = 744-3) 8 3.4-9.0 [facility] CampusNucleated Red Blood Ebpxn9764-28-17 13:57:00* Test Item Value Reference Range Interpretation Comments Nucleated Red Blood Cells (test code = 20133-0) 1 [facility] CampusPlatelet Jwfjseqr7219-29-69 10:11:00* Test Item Value Reference Range Interpretation Comments Platelet Estimate (test code = 97698-2) SLIGHTLY DECREASED [facility] CampusPlatelet Morphology Hpgjxtu3053-19-85 10:11:00* Test Item Value Reference Range Interpretation Comments Platelet Morphology Comment (test code = 15044-4) NORMAL [facility] CampusRed Cell Morphology Vzgbktz0052-07-88 10:11:00* Test Item Value Reference Range Interpretation Comments Red Cell Morphology Comment (test code = 6742-1) NORMAL [facility] CampusHypochromasia2018-03-16 09:24:00* Test Item Value Reference Range Interpretation Comments Hypochromasia (test code = 728-6) SLIGHT [facility] CampusAnisocytosis2018-03-16 09:24:00* Test Item Value Reference Range Interpretation Comments Anisocytosis (test code = 702-1) SLIGHT [facility] CampusArterial Blood jW4575-93-83 13:36:00* Test Item Value Reference Range Interpretation Comments Arterial Blood pH (test code = 2744-1) 7.49 7.31-7.41 H [facility] CampusArterial Blood Partial Pressure CO2 2017-12-31 13:36:00* Test Item Value Reference Range Interpretation Comments Arterial Blood Partial Pressure CO2 (test code = 2019-8) 56 41-51 H [facility] CampusArterial Blood Partial Pressure O2 2017-12-31 13:36:00* Test Item Value Reference Range Interpretation Comments Arterial Blood Partial Pressure O2 (test code = 2019-8) 89 80-105 [facility] CampusArterial Blood UWX62794-02-78 13:36:00* Test Item Value Reference Range Interpretation Comments Arterial Blood HCO3 (test code = 1960-4) 43 23-28 H [facility] CampusArterial Blood Base Lkdcwj7261-84-31 13:36:00* Test Item Value Reference Range Interpretation Comments Arterial Blood Base Excess (test code = 1925-7) 19.0 -2-3 H [facility] CampusArterial Blood Oxygen Saturation 2017-12-31 13:36:00* Test Item Value Reference Range Interpretation Comments Arterial Blood Oxygen Saturation (test code = 2708-6) 97.0 95-98 [facility] CampusActivated Partial Thromboplast Time 2017-12-31 06:39:00* Test Item Value Reference Range Interpretation Comments Activated Partial Thromboplast Time (test code = 66260-2) 26.1 23.8-35.5 [facility] CampusProthrombin Gvfq0452-49-89 06:36:00* Test Item Value Reference Range Interpretation Comments Prothrombin Time (test code = 5902-2) 15.3 11.9-14.5 H [facility] CampusProthromb Time International Ratio 2017-12-31 06:36:00* Test Item Value Reference Range Interpretation Comments Prothromb Time International Ratio (test code = 6301-6) 1.31 Oral Anticoagulant Therapy INR Values:1. Low Intensity Therapy 1.5 - 2.02 . Moderate Intensity Therapy 2.0 - 3.03. High Intensity Therapy(1) 2.5 - 3. 54. High Intensity Therapy(2) 3.0 - 4.05. Panic Value INR > 5.0 [facility] Centertool Occult Wwiil7908-22-66 13:18:00* Test Item Value Reference Range Interpretation Comments Stool Occult Blood (test code = 2335-8) NEGATIVE NEGATIVE [facility] CampusVancomycin Level Vjaxgk6578-21-81 00:02:00* Test Item Value Reference Range Interpretation Comments Vancomycin Level Trough (test code = 4092-3) 16.2 5.0-10.0 HH Results called to KENA sun/icu at 0000 on 12/28/17 by Lindsey Ramirez. BERONICA [place] .[facility] CampusAmmonia2018-03-11 12:49:00* Test Item Value Reference Range Interpretation Comments Ammonia (test code = 51947-2) 80 31-123 [facility] CampusBlood Dcoqlyv9005-68-27 17:13:00* Test Item Value Reference Range Interpretation Comments Blood Culture (test code = 35048238) NO GROWTH AFTER 5 DAYS, FINAL REPORT [facility] CampusUrine Legionella Wavlzzq7736-79-08 08:44:00* Test Item Value Reference Range Interpretation Comments Urine Legionella Antigen (test code = 98253-3) Negative Negativ e Presumptive negative for L. pneumophila serogroup 1 antigenin urine, suggesting no recent or current infection.Legionnaires' disease cannot be ruled out since o therserogroups and species may also cause disease.Performed at: - [facility] [address] [place], [place] [id number] Director: Andrew restrepo MD, Phone: [phone] Hospitals of [facility] CampusUrine Creatinine 24 Fxhz6096-66-59 00:47:00* Test Item Value Reference Range Interpretation Comments Urine Creatinine 24 Hour (test code = 2162-6) 9994 082-4552 [facility] CampusCreatinine Ysjaixvvt9877-84-78 00:47:00* Test Item Value Reference Range Interpretation Comments Creatinine Clearance (test code = 95617-9) 69 88-128 L [facility] CampusUrine Collection Ngnv6597-73-87 00:43:00 * Test Item Value Reference Range Interpretation Comments Urine Collection Time (test code = 66677-1) 24 [facility] CampusUrine Total Udlbwo8549-27-40 00:43:00* Test Item Value Reference Range Interpretation Comments Urine Total Volume (test code = 65573-6) 2026 830-4084 [facility] CampusUrine Yegigtqbnw1365-44-32 00:43:00* Test Item Value Reference Range Interpretation Comments Urine Creatinine (test code = 2161-8) 107.79 47-110 [facility] Campusp-ANCA Cjlnf0536-34-72 16:20:00* Test Item Value Reference Range Interpretation Comments p-ANCA Titer (test code = 29018-1) -1:20 Neg:<1:20 The presence of positive fluorescence exhibiting P-ANCA orC-ANCA patterns alone is not specific for the diagnosis ofWegener's Granulomatosis (WG) or microscopic polyangiitis.Decisions about treatment should not be based solely onANCA DEBORA stark. The International ANCA Group Consensusrecommends follow up testing of po sitive sera with both SD-3 and MPO-ANCA enzyme immunoassays. As many as 5% serum samples are positive only by EIA. Ref. AM J Clin Jzajma9000;111:507-513.[facility] Campusc-ANCA Abmuq4569-08-47 16:20:00* Test Item Value Reference Range Interpretation Comments c-ANCA Titer (test code = 11456-6) -1:20 Neg:<1:20 [facility] CampusAtypical v-TDZI3914-73MHQU1964-04-91 16:20:00* Test Item Value Reference Range Interpretation Comments Atypical p-ANCA (test code = 69393-2) 1:40 Neg:<1:20 H The atypical pANCA pattern has been observed in asignificant percentage of patie nts with ulcerative colitis,primary sclerosing cholangitis and autoimmune hepati tis.Performed at: [employer] [address] [id number] Director: Andrew Ruiz MD, Phone: [phone] [facility]als of [facility] CampusChlamydia trachomatis IgM Gedmvxel2455-22-61 13:50:00* Test Item Value Reference Range Interpretation Comments Chlamydia trachomatis IgM Antibody (test code = 29870-2) -0.8 0.0-0.7 Negative <0.8 Borderline 0.8 - 1.0 Positive > 1.0Results for this test are for research purposesonly by the assay's manufactur er. The performancecharacteristics of this product have not beenestablished. R esults should not be used as adiagnostic procedure without confirmation of thedi agnosis by another medically established diagnosticproduct or procedure.Performe d at: [employer] [address] [id number] Dire ctor: Andrew Ruiz MD, Phone: [phone] [facility]als of [facility] CampusMycoplasma pneumoniae IgG Igdqeocf2632-77-62 07:34:00* Test Item Value Reference Range Interpretation [...] ks later showing asignificant increase in antibody levels.[facility] CampusMycoplasma pneumoniae IgM Obpqcmvf0139-68-08 07:34:00* Test Item Value Reference Range Interpretation Comments Mycoplasma pneumoniae IgM Antibody (test code = 816521050) -770 0-769 Negative <770Clinically significant amount of M. pneumoniae antibodynot detected. Low Positive 770 - 950M. pneumoniae specific IgM presumptively detected. Itis recommended that another sample be collected 1-2weeks later to assure reactivity. Positive >950Highly significant amount of M. pneumoniae specificIgM antibody detected.Performed at: [address] [id number] Director: Andrew Ruiz MD, Phone: [phone] Hospitals of [facility] Campus Total Aoxgigybn2150-18-55 06:46:00* Test Item Value Reference Range Interpretation Comments Total Bilirubin (test code = 1975-2) 0.6 0.2-1.2 [facility] CampusAspartate Amino Transf (AST/SGOT) 2017-12-23 06:46:00* Test Item Value Reference Range Interpretation Comments Aspartate Amino Transf (AST/SGOT) (test code = Aspartate Amino Transf (AST/SGOT)) 50 5-34 H [facility] CampusAlanine Aminotransferase (ALT/SGPT) 2017-12-23 06:46:00* Test Item Value Reference Range Interpretation Comments Alanine Aminotransferase (ALT/SGPT) (test code = 1742-6) 23 0-55 [facility] CampusTotal Ejodnlp4657-79-92 06:46:00* Test Item Value Reference Range Interpretation Comments Total Protein (test code = 2885-2) 6.0 6.5-8.1 L [facility] [facility]* Test Item Value Reference Range Interpretation Comments Albumin (test code = 1751-7) 1.7 3.5-5.0 L [facility] CampusGlobulin2018-03-07 06:46:00* Test Item Value Reference Range Interpretation Comments Globulin (test code = 09591-9) 4.3 2.3-3.5 H [facility] CampusAlbumin/Globulin Ayymm1791-26-97 06:46:00 * Test Item Value Reference Range Interpretation Comments Albumin/Globulin Ratio (test code = 1759-0) 0.4 0.8-2.0 L [facility] CampusAlkaline Zttpwugfblq9520-38-29 06:46:00* Test Item Value Reference Range Interpretation Comments Alkaline Phosphatase (test code = 6768-6) 82 40-150 [facility] CampusUrine Pjhjfsxmdgo2487-76-53 00:23:00* Test Item Value Reference Range Interpretation Comments Urine Eosinophils (test code = 80750-4) NONE SEEN NONE SEEN [facility] CampusUrine Random Total Nvcusil4756-64-62 00:07:00* Test Item Value Reference Range Interpretation Comments Urine Random Total Protein (test code = 2888-6) 73.9 1-14 H [facility] CampusUrine Random Prerwe8088-57-39 00:07:00* Test Item Value Reference Range Interpretation Comments Urine Random Sodium (test code = 2955-3) -20 [facility] CampusUrine HVR6008-24-39 23:54:00* Test Item Value Reference Range Interpretation Comments Urine WBC (test code = 5821-4) 6-10 0-5 H [facility] CampusUrine YTQ9741-55-50 23:54:00* Test Item Value Reference Range Interpretation Comments Urine RBC (test code = 07445-0) 11-20 0-5 H [facility] CampusUrine Ftjphqwf8419-10-45 23:54:00* Test Item Value Reference Range Interpretation Comments Urine Bacteria (test code = 53536-9) MODERATE NONE H [facility] CampusUrine Epithelial Oeawr1871-76-14 23:54:00 * Test Item Value Reference Range Interpretation Comments Urine Epithelial Cells (test code = 13612-8) RARE NONE [facility] CampusUrine Amorphous Rvgebjin8300-40-87 23:54:00* Test Item Value Reference Range Interpretation Comments Urine Amorphous Sediment (test code = 8246-1) FEW FEW [facility] CampusUrine Coisi9990-35-11 23:48:00* Test Item Value Reference Range Interpretation Comments Urine Color (test code = 5778-6) YELLOW YELLOW [facility] CampusUrine Vrqlpba8211-07-24 23:48:00* Test Item Value Reference Range Interpretation Comments Urine Clarity (test code = 36239-5) SL CLOUDY CLEAR [facility] CampusUrine Specific Nbfzfjn9727-04-98 23:48:00 * Test Item Value Reference Range Interpretation Comments Urine Specific [place] (test code = 5811-5) 1.020 1.010-1.02 5 [facility] CampusUrine iJ7322-67-31 23:48:00* Test Item Value Reference Range Interpretation Comments Urine pH (test code = 09826-6) 5 5-7 [facility] CampusU[facility] Leukocyte Sbjduozh2340-72-40 23:48:00* Test Item Value Reference Range Interpretation Comments Urine Leukocyte Esterase (test code = 5799-2) NEGATIVE NEGATIVE [facility] CampusUrine Hignjqh0630-59-50 23:48:00* Test Item Value Reference Range Interpretation Comments Urine Nitrite (test code = 29357-9) NEGATIVE NEGATIVE [facility] CampusUrine Xttosho6685-98-49 23:48:00* Test Item Value Reference Range Interpretation Comments Urine Protein (test code = 5804-0) 1+ NEGATIVE H [facility] CampusUrine Glucose (UA)2017-12-22 23:48:00* Test Item Value Reference Range Interpretation Comments Urine Glucose (UA) (test code = 2349-9) NEGATIVE NEGATIVE [facility] CampusUrine Iizjavy0225-12-48 23:48:00* Test Item Value Reference Range Interpretation Comments Urine Ketones (test code = 83929-9) NEGATIVE NEGATIVE [facility] CampusUrine Nqujbkvwxnro7345-57-94 23:48:00* Test Item Value Reference Range Interpretation Comments Urine Urobilinogen (test code = 05775-2) 1 0.2-1 [facility] CampusUrine Omnwsgnnq4721-18-02 23:48:00* Test Item Value Reference Range Interpretation Comments Urine Bilirubin (test code = 1978-6) 1+ NEGATIVE H [facility] CampusUrine Ewkeg2106-13-83 23:48:00* Test Item Value Reference Range Interpretation Comments Urine Blood (test code = 50190-8) 4+ NEGATIVE H [facility] CampusChlamydia psittaci IgM Uubnsgsn0747-08-95 20:05:00* Test Item Value Reference Range Interpretation Comments Chlamydia psittaci IgM Antibody (test code = 6917-9) -1:10 N eg:<1:10 This test was developed and its performance characteristicsdetermined by [employer] . It has not been cleared or approvedby the Food and Drug Administration. The FDA hasdetermined that such clearance or approval is notnecessary.Performed at: [facility] Lab[address] [id number] Director: Andrew Ruiz MD, Phone: [phone] Hospitals of [facility] Anti-Nuclear Antibody Dkumty7609-66-70 13:40:00* Test Item Value Reference Range Interpretation Comments Anti-Nuclear Antibody Screen (test code = 5048-4) Negative . Negative <1:80 Borderline 1:80 Positive > 1:80Performed at: [facility] Lab[address] [id number]Lab Director: Paul Ann MD, Phone: [phone] [facility]als of [facility] CampusInfluenza Virus Types A,B Zcvarzz6447-24-89 11:20:00* Test Item Value Reference Range Interpretation Comments Influenza Virus Types A,B Antigen (test code = 00772-8) NEGATIVE NEGATIVE [facility] CampusBody Fluid Dxjm4417-98-86 18:10:00* Test Item Value Reference Range Interpretation Comments Body Fluid Type (test code = 78000-1) PLEURAL LAVAGE [facility]MLCHI [facility] CenterBody [facility] Nhdua5099-68-31 18:10:00* Test Item Value Reference Range Interpretation Comments Body Fluid Color (test code = 6824-7) WHITE [facility] CampusBody Fluid Vwfsetqvbe2222-73-34 18:10:00 * Test Item Value Reference Range Interpretation Comments Body Fluid Appearance (test code = 9335-1) CLOUDY [facility] CampusBody Fluid IAR1636-67-81 18:10:00* Test Item Value Reference Range Interpretation Comments Body Fluid WBC (test code = 6743-9) 829 [facility] CampusBody Fluid YKL4199-40-31 18:10:00* Test Item Value Reference Range Interpretation Comments Body Fluid RBC (test code = 6741-3) 31 [facility] CampusBody Fluid Suwodukyihx3232-75-41 17:43:00 * Test Item Value Reference Range Interpretation Comments Body Fluid Neutrophils (test code = 48811-1) 86 [facility] CampusBody Fluid Ruiecajlrec7288-89-81 17:43:00 * Test Item Value Reference Range Interpretation Comments Body Fluid Lymphocytes (test code = 15246692) 11 [facility] CampusBody Fluid Zjkhxylie5961-43-76 17:43:00* Test Item Value Reference Range Interpretation Comments Body Fluid Monocytes (test code = 91433-2) 3 [facility] CampusBody Fluid Total Cells Xipzzwz4521-10-32 17:43:00* Test Item Value Reference Range Interpretation Comments Body Fluid Total Cells Counted (test code = 46202-9) 100 [facility] CampusFerritin2018-03-05 07:26:00* Test Item Value Reference Range Interpretation Comments Ferritin (test code = 2276-4) 780.10 4.63-204.00 H [facility] CampusFree Njgrdpqvv5378-80-64 07:26:00* Test Item Value Reference Range Interpretation Comments Free Thyroxine (test code = 3024-7) 0.94 0.9-1.8 [facility] CampusThyroid Stimulating Hormone (TSH) 2017-12-21 07:26:00* Test Item Value Reference Range Interpretation Comments Thyroid Stimulating Hormone (TSH) (test code = 65755-7) 0.197 0.350-4.940 L [facility] CampusVitamin B12 Mfdns7199-85-40 07:07:00* Test Item Value Reference Range Interpretation Comments Vitamin B12 Level (test code = 84275-1) 103 213-816 L [facility] CampusFolate2018-03-05 07:07:00* Test Item Value Reference Range Interpretation Comments Folate (test code = 2284-8) 5.9 7.0-15.4 L [facility] CampusIron Cgixz9935-81-69 07:06:00* Test Item Value Reference Range Interpretation Comments Iron Level (test code = 2498-4) 19 50-170 L [facility] CampusTotal Iron Binding Kexoodvn8759-87-18 07:06:00* Test Item Value Reference Range Interpretation Comments Total Iron Binding Capacity (test code = 2500-7) 168 261-4 78 L [facility] CampusPercent Iron Mwimtjwghk8677-28-20 07:06:00* Test Item Value Reference Range Interpretation Comments Percent Iron Saturation (test code = 2502-3) 11 15-50 L [facility] CampusTransferrin2018-03-05 07:06:00* Test Item Value Reference Range Interpretation Comments Transferrin (test code = 3034-6) 120 180-382 L [facility] CampusLactic Acid Ilbcv8013-26-37 19:46:00* Test Item Value Reference Range Interpretation Comments Lactic Acid Level (test code = Lactic Acid Level) 8.8 4.5- 19.8 [facility] CampusEosinophils % (Manual)2017-12-19 12:04:00 * Test Item Value Reference Range Interpretation Comments Eosinophils % (Manual) (test code = 714-6) 1 0-7 [facility] CampusBedside Baobgcp8655-36-11 16:56:00* Test Item Value Reference Range Interpretation Comments Bedside Glucose (test code = 09192-8) 110 70-120 Meter ID: [id number] Hospitals of [facility] CampusBlood Culture 2017-12-15 22:30:00* Test Item Value Reference Range Interpretation Comments Blood Culture (test code = 48821482) NO GROWTH AFTER 5 DAYS, FINAL REPORT [facility]odium Iakzd9960-69-26 07:10:00* Test Item Value Reference Range Interpretation Comments Sodium Level (test code = 2951-2) 141 136-145 [facility] CampusPotassium Wigbb3627-48-52 07:10:00* Test Item Value Reference Range Interpretation Comments Potassium Level (test code = 2823-3) 3.7 3.5-5.1 [facility] CampusChloride Sglwb7741-50-87 07:10:00* Test Item Value Reference Range Interpretation Comments Chloride Level (test code = 2075-0) 105 98-107 [facility] CampusCarbon Dioxide Tpvun0858-18-34 07:10:00* Test Item Value Reference Range Interpretation Comments Carbon Dioxide Level (test code = 2028-9) 26 22-29 [facility] CampusAnion Zwd5915-98-58 07:10:00* Test Item Value Reference Range Interpretation Comments Anion Gap (test code = 48265-3) 13.7 8-16 [facility] CampusBlood Urea Oxzjpfvg9117-42-03 07:10:00* Test Item Value Reference Range Interpretation Comments Blood Urea Nitrogen (test code = 3094-0) 14 7-26 [facility] CampusCreatinine2018-02-27 07:10:00* Test Item Value Reference Range Interpretation Comments Creatinine (test code = 2160-0) 0.81 0.57-1.11 [facility] CampusBUN/Creatinine Djwwi2623-65-43 07:10:00* Test Item Value Reference Range Interpretation Comments BUN/Creatinine Ratio (test code = 3097-3) 17 6- [facility] CampusEstimat Glomerular Filtration Rate 2017-12-15 07:10:00* Test Item Value Reference Range Interpretation Comments Estimat Glomerular Filtration Rate (test code = 39598-9) 60- >60 Ranges were taken from the National Kidney Disease Education Program and the [place] [employer] [employer] literature.Reference ranges:60 or greater: Henebb47-82 ( for 3 consecutive months): Chronic kidney disease 15 or less: Kidney failureThe Hospitals of Providence Memorial CampusGlucose Xepnf6171-46-10 07:10:00* Test Item Value Reference Range Interpretation Comments Glucose Level (test code = HUD0250) 91 74-118 [facility] CampusCalcium Acfyn6909-10-99 07:10:00* Test Item Value Reference Range Interpretation Comments Calcium Level (test code = 18902-5) 9.0 8.4-10.2 [facility] CampusWhite Blood Xwfzp2724-54-18 06:57:00* Test Item Value Reference Range Interpretation Comments White Blood Count (test code = 6690-2) 7.80 4.8-10.8 [facility] CampusRed Blood Kiozv1387-27-87 06:57:00* Test Item Value Reference Range Interpretation Comments Red Blood Count (test code = 789-8) 3.44 3.6-5.1 L [facility] CampusHemoglobin2018-02-27 06:57:00* Test Item Value Reference Range Interpretation Comments Hemoglobin (test code = 59582-4) 9.1 12.0-16.0 L [facility] CampusHematocrit2018-02-27 06:57:00* Test Item Value Reference Range Interpretation Comments Hematocrit (test code = 4544-3) 29.1 34.2-44.1 L [facility] CampusMean Corpuscular Wsutys6129-83-48 06:57:00* Test Item Value Reference Range Interpretation Comments Mean Corpuscular Volume (test code = 787-2) 84.6 81-99 [facility] CampusMean Corpuscular Ckwpnsugqv1138-49-11 06:57:00* Test Item Value Reference Range Interpretation Comments Mean Corpuscular Hemoglobin (test code = 785-6) 26.5 28-32 L [facility] CampusMean Corpuscular Hemoglobin Concent 2017-12-15 06:57:00* Test Item Value Reference Range Interpretation Comments Mean Corpuscular Hemoglobin Concent (test code = 786-4) 31.3 31-35 [facility] CampusRed Cell Distribution Upzsj3591-42-96 06:57:00* Test Item Value Reference Range Interpretation Comments Red Cell Distribution Width (test code = 31606-6) 14.6 11.7 -14.4 H [facility] CampusPlatelet Bjjst8249-95-91 06:57:00* Test Item Value Reference Range Interpretation Comments Platelet Count (test code = 777-3) 278 140-360 [facility] CampusNeutrophils (%) (Auto)2017-12-15 06:57:00 * Test Item Value Reference Range Interpretation Comments Neutrophils (%) (Auto) (test code = 39684-4) 66.8 38.7-80.0 [facility] CampusLymphocytes (%) (Auto)2017-12-15 06:57:00 * Test Item Value Reference Range Interpretation Comments Lymphocytes (%) (Auto) (test code = 736-9) 16.3 18.0-39.1 L [facility] CampusMonocytes (%) (Auto)2017-12-15 06:57:00* Test Item Value Reference Range Interpretation Comments Monocytes (%) (Auto) (test code = 5905-5) 9.2 4.4-11.3 [facility] CampusEosinophils (%) (Auto)2017-12-15 06:57:00 * Test Item Value Reference Range Interpretation Comments Eosinophils (%) (Auto) (test code = 713-8) 6.3 0.0-6.0 H [facility] CampusBasophils (%) (Auto)2017-12-15 06:57:00* Test Item Value Reference Range Interpretation Comments Basophils (%) (Auto) (test code = 706-2) 0.8 0.0-1.0 [facility] CampusIM GRANULOCYTES %2017-12-15 06:57:00* Test Item Value Reference Range Interpretation Comments IM GRANULOCYTES % (test code = IM GRANULOCYTES %) 0.6 0.0- 1.0 [facility] CampusNeutrophils # (Auto)2017-12-15 06:57:00* Test Item Value Reference Range Interpretation Comments Neutrophils # (Auto) (test code = 751-8) 5.2 2.1-6.9 [facility] CampusLymphocytes # (Auto)2017-12-15 06:57:00* Test Item Value Reference Range Interpretation Comments Lymphocytes # (Auto) (test code = 50355-0) 1.3 1.0-3.2 [facility] CampusMonocytes # (Auto)2017-12-15 06:57:00* Test Item Value Reference Range Interpretation Comments Monocytes # (Auto) (test code = 742-7) 0.7 0.2-0.8 [facility] CampusEosinophils # (Auto)2017-12-15 06:57:00* Test Item Value Reference Range Interpretation Comments Eosinophils # (Auto) (test code = 711-2) 0.5 0.0-0.4 H [facility] CampusBasophils # (Auto)2017-12-15 06:57:00* Test Item Value Reference Range Interpretation Comments Basophils # (Auto) (test code = 704-7) 0.1 0.0-0.1 [facility] CampusAbsolute Immature Granulocyte (auto 2017-12-15 06:57:00* Test Item Value Reference Range Interpretation Comments Absolute Immature Granulocyte (auto (kayla t code = Absolute Immature Granulocyte (auto) 0.05 0-0.1 [facility] CampusCreatine Kinase LQ3006-58-02 06:25:00* Test Item Value Reference Range Interpretation Comments Creatine Kinase MB (test code = 97337-6) 0.80 0-5.0 [facility] CampusTroponin S3462-49-89 06:25:00* Test Item Value Reference Range Interpretation Comments Troponin I (test code = KRB7543) 0.007 0-0.300 [facility] CampusCreatine Kinase SX3696-91-24 06:25:00* Test Item Value Reference Range Interpretation Comments Creatine Kinase MB (test code = 00623-0) 0.80 0-5.0 [facility] CampusTrgateway medical centernin B8949-13-10 06:25:00* Test Item Value Reference Range Interpretation Comments Troponin I (test code = QKJ5756) 0.007 0-0.300 [facility] CampusTotal Iyoldrngh4961-58-41 05:58:00* Test Item Value Reference Range Interpretation Comments Total Bilirubin (test code = 1975-2) 0.7 0.2-1.2 [facility] CampusAspartate Amino Transf (AST/SGOT) 2017-12-11 05:58:00* Test Item Value Reference Range Interpretation Comments Aspartate Amino Transf (AST/SGOT) (test code = Aspartate Amino Transf (AST/SGOT)) 19 5-34 [facility] CampusAlanine Aminotransferase (ALT/SGPT) 2017-12-11 05:58:00* Test Item Value Reference Range Interpretation Comments Alanine Aminotransferase (ALT/SGPT) (test code = 1742-6) 11 0-55 [facility] CampusTotal Nzvmqvd9529-64-75 05:58:00* Test Item Value Reference Range Interpretation Comments Total Protein (test code = 2885-2) 6.7 6.5-8.1 [facility] CampusAlbumin2018-02-23 05:58:00* Test Item Value Reference Range Interpretation Comments Albumin (test code = 1751-7) 2.5 3.5-5.0 L [facility] CampusGlobulin2018-02-23 05:58:00* Test Item Value Reference Range Interpretation Comments Globulin (test code = 07502-8) 4.2 2.3-3.5 H [facility] CampusAlbumin/Globulin Iwejn7956-39-67 05:58:00 * Test Item Value Reference Range Interpretation Comments Albumin/Globulin Ratio (test code = 1759-0) 0.6 0.8-2.0 L [facility] CampusAlkaline Bgceprgllmj9905-99-14 05:58:00* Test Item Value Reference Range Interpretation Comments Alkaline Phosphatase (test code = 6768-6) 77 40-150 [facility] CampusCreatine Tacxay4715-11-86 05:58:00* Test Item Value Reference Range Interpretation Comments Creatine Kinase (test code = 2157-6) 54 29-168 [facility] CampusCreatine Ffmnjz3162-99-36 05:58:00* Test Item Value Reference Range Interpretation Comments Creatine Kinase (test code = 2157-6) 54 29-168 [facility] CampusMagnesium Msghn0564-97-10 19:38:00* Test Item Value Reference Range Interpretation Comments Magnesium Level (test code = 77993-0) 1.6 1.3-2.1 [facility] CampusUrine VWX6007-20-60 13:07:00* Test Item Value Reference Range Interpretation Comments Urine WBC (test code = 5821-4) 6-10 0-5 H [facility] CampusUrine RLO4620-65-24 13:07:00* Test Item Value Reference Range Interpretation Comments Urine RBC (test code = 87288-6) NONE 0-5 [facility] CampusUrine Lkrrlwab1856-22-01 13:07:00* Test Item Value Reference Range Interpretation Comments Urine Bacteria (test code = 34782-4) NONE NONE [facility] CampusUrine Epithelial Wmkuq9837-63-59 13:07:00 * Test Item Value Reference Range Interpretation Comments Urine Epithelial Cells (test code = 87430-4) MODERATE NONE [facility] CampusUrine Wpcef4183-56-43 12:40:00* Test Item Value Reference Range Interpretation Comments Urine Color (test code = 5778-6) YELLOW YELLOW [facility] CampusUrine Ggvhhie7147-26-84 12:40:00* Test Item Value Reference Range Interpretation Comments Urine Clarity (test code = 63903-2) SL CLOUDY CLEAR [facility] CampusUrine Specific Lzxljds2532-71-93 12:40:00 * Test Item Value Reference Range Interpretation Comments Urine Specific [place] (test code = 5811-5) 1.015 1.010-1.02 5 [facility] CampusUrine mO8052-15-87 12:40:00* Test Item Value Reference Range Interpretation Comments Urine pH (test code = 55402-9) 6 5-7 [facility] CampusUrine Leukocyte Iwgmaymu5652-77-45 12:40:00* Test Item Value Reference Range Interpretation Comments Urine Leukocyte Esterase (test code = 5799-2) TRACE NEGATIVE H [facility] CampusUrine Sqjniiv1820-45-16 12:40:00* Test Item Value Reference Range Interpretation Comments Urine Nitrite (test code = 72261-2) NEGATIVE NEGATIVE [facility] CampusUrine Nxfjzls9237-05-62 12:40:00* Test Item Value Reference Range Interpretation Comments Urine Protein (test code = 5804-0) NEGATIVE NEGATIVE [facility] CampusUrine Glucose (UA)2017-12-10 12:40:00* Test Item Value Reference Range Interpretation Comments Urine Glucose (UA) (test code = 2349-9) NEGATIVE NEGATIVE [facility] CampusUrine Smnwbxz5285-61-52 12:40:00* Test Item Value Reference Range Interpretation Comments Urine Ketones (test code = 97821-1) NEGATIVE NEGATIVE [facility] CampusUrine Wwgpzrtyaxwe5773-02-91 12:40:00* Test Item Value Reference Range Interpretation Comments Urine Urobilinogen (test code = 66593-0) 4 0.2-1 H [facility] CampusUrine Fkglityqd1448-47-10 12:40:00* Test Item Value Reference Range Interpretation Comments Urine Bilirubin (test code = 1978-6) NEGATIVE NEGATIVE [facility] CampusUrine Opfyg1528-97-75 12:40:00* Test Item Value Reference Range Interpretation Comments Urine Blood (test code = 77705-6) NEGATIVE NEGATIVE [facility] CampusB-Type Natriuretic Oyksnmv2923-15-21 12:31:00* Test Item Value Reference Range Interpretation Comments B-Type Natriuretic Peptide (test code = 17909-7) 91.1 0-100 [facility] CampusB-Type Natriuretic Bsglwte0556-90-85 12:31:00* Test Item Value Reference Range Interpretation Comments B-Type Natriuretic Peptide (test code = 04161-3) 91.1 0-100 [facility] CampusD-Dimer Quantitative (PE/DVT)2017-12-10 12:24:00* Test Item Value Reference Range Interpretation Comments D-Dimer Quantitative (PE/DVT) (test code = 39249-4) 2.64 0. 00-0.45 H As with all in vitro diagnostic tests, the test results should be interpreted by the physician in conjunction with clinical findings and other test results.Test results are reported in NEW D-dimer units(ug/mLFEU).[facility] CampusD-Dimer Quantitative (PE/DVT)2017-12-10 12:24:00* Test Item Value Reference Range Interpretation Comments D-Dimer Quantitative (PE/DVT) (test code = 26269-2) 2.64 0. 00-0.45 H As with all in vitro diagnostic tests, the test results should be interpreted by the physician in conjunction with clinical findings and other test results.Test results are reported in NEW D-dimer units(ug/mLFEU).[facility] CampusLactic Acid Cseng2789-72-79 12:20:00* Test Item Value Reference Range Interpretation Comments Lactic Acid Level (test code = Lactic Acid Level) 9.1 4.5- 19.8 [facility] CampusProthrombin Kuyo7602-61-62 12:15:00* Test Item Value Reference Range Interpretation Comments Prothrombin Time (test code = 5902-2) 15.2 11.9-14.5 H [facility] CampusProthromb Time International Ratio 2017-12-10 12:15:00* Test Item Value Reference Range Interpretation Comments Prothromb Time International Ratio (test code = 6301-6) 1.30 Oral Anticoagulant Therapy INR Values:1. Low Intensity Therapy 1.5 - 2.02 . Moderate Intensity Therapy 2.0 - 3.03. High Intensity Therapy(1) 2.5 - 3. 54. High Intensity Therapy(2) 3.0 - 4.05. Panic Value INR > 5.0 [facility] CampusActivated Partial Thromboplast Time 2017-12-10 12:15:00* Test Item Value Reference Range Interpretation Comments Activated Partial Thromboplast Time (test code = 23775-0) 31.1 23.8-35.5 [facility] CampusBedside Qfanhwj4693-03-61 12:02:00* Test Item Value Reference Range Interpretation Comments Bedside Glucose (test code = 68552-7) 119 70-120 Meter ID: [id number] David's Round [facility] Medical Centerodium Level 2017-11-27 07:58:00* Test Item Value Reference Range Interpretation Comments Sodium Level (test code = 2951-2) 138 136-145 [facility] CampusPotassium Rorvk6299-76-86 07:58:00* Test Item Value Reference Range Interpretation Comments Potassium Level (test code = 2823-3) 3.1 3.5-5.1 L [facility] CampusChloride Qrvby8871-38-89 07:58:00* Test Item Value Reference Range Interpretation Comments Chloride Level (test code = 2075-0) 103 98-107 [facility] CampusCarbon Dioxide Fxvfl2004-58-05 07:58:00* Test Item Value Reference Range Interpretation Comments Carbon Dioxide Level (test code = 2028-9) 25 22-29 [facility] CampusAnion Gmi4918-27-63 07:58:00* Test Item Value Reference Range Interpretation Comments Anion Gap (test code = 40234-3) 13.1 8-16 [facility] CampusBlood Urea Ngycyxqp4501-42-64 07:58:00* Test Item Value Reference Range Interpretation Comments Blood Urea Nitrogen (test code = 3094-0) 10 7-26 [facility] CampusCreatinine2018-02-09 07:58:00* Test Item Value Reference Range Interpretation Comments Creatinine (test code = 2160-0) 0.90 0.57-1.11 [facility] CampusBUN/Creatinine Gkhkd2167-20-32 07:58:00* Test Item Value Reference Range Interpretation Comments BUN/Creatinine Ratio (test code = 3097-3) 11 6-25 [facility] CampusEstimat Glomerular Filtration Rate 2017-11-27 07:58:00* Test Item Value Reference Range Interpretation Comments Estimat Glomerular Filtration Rate (test code = 90458-7) 60- >60 Ranges were taken from the National Kidney Disease Education Program and the [facility] [employer] literature.Reference ranges:60 or greater: Qvhkzi71-02 ( for 3 consecutive months): Chronic kidney disease 15 or less: Kidney failureThe Hospitals of Providence Memorial CampusGlucose Sysma3490-67-43 07:58:00* Test Item Value Reference Range Interpretation Comments Glucose Level (test code = XFN5139) 93 74-118 [facility] CampusCalcium Gomwp7284-35-48 07:58:00* Test Item Value Reference Range Interpretation Comments Calcium Level (test code = 60463-2) 8.1 8.4-10.2 L [facility] CampusWhite Blood Fgkyl8316-92-34 07:29:00* Test Item Value Reference Range Interpretation Comments White Blood Count (test code = 6690-2) 6.47 4.8-10.8 [facility] CampusRed Blood Axurj8599-91-98 07:29:00* Test Item Value Reference Range Interpretation Comments Red Blood Count (test code = 789-8) 3.58 3.6-5.1 L [facility] CampusHemoglobin2018-02-09 07:29:00* Test Item Value Reference Range Interpretation Comments Hemoglobin (test code = 98793-5) 9.6 12.0-16.0 L [facility] CampusHematocrit2018-02-09 07:29:00* Test Item Value Reference Range Interpretation Comments Hematocrit (test code = 4544-3) 30.1 34.2-44.1 L [facility] CampusMean Corpuscular Ndkbya5738-61-58 07:29:00* Test Item Value Reference Range Interpretation Comments Mean Corpuscular Volume (test code = 787-2) 84.1 81-99 [facility] CampusMean Corpuscular Hklirbcyes0785-85-78 07:29:00* Test Item Value Reference Range Interpretation Comments Mean Corpuscular Hemoglobin (test code = 785-6) 26.8 28-32 L [facility] CampusMean Corpuscular Hemoglobin Concent 2017-11-27 07:29:00* Test Item Value Reference Range Interpretation Comments Mean Corpuscular Hemoglobin Concent (test code = 786-4) 31.9 31-35 [facility] CampusRed Cell Distribution Ffebs4549-03-96 07:29:00* Test Item Value Reference Range Interpretation Comments Red Cell Distribution Width (test code = 44409-3) 14.1 11.7 -14.4 [facility] CampusPlatelet Jipdl5046-59-97 07:29:00* Test Item Value Reference Range Interpretation Comments Platelet Count (test code = 777-3) 113 140-360 L [facility] CampusNeutrophils (%) (Auto)2017-11-27 07:29:00 * Test Item Value Reference Range Interpretation Comments Neutrophils (%) (Auto) (test code = 56536-5) 76.9 38.7-80.0 [facility] CampusLymphocytes (%) (Auto)2017-11-27 07:29:00 * Test Item Value Reference Range Interpretation Comments Lymphocytes (%) (Auto) (test code = 736-9) 10.5 18.0-39.1 L [facility] CampusMonocytes (%) (Auto)2017-11-27 07:29:00* Test Item Value Reference Range Interpretation Comments Monocytes (%) (Auto) (test code = 5905-5) 10.8 4.4-11.3 [facility] CampusEosinophils (%) (Auto)2017-11-27 07:29:00 * Test Item Value Reference Range Interpretation Comments Eosinophils (%) (Auto) (test code = 713-8) 1.1 0.0-6.0 [facility] CampusBasophils (%) (Auto)2017-11-27 07:29:00* Test Item Value Reference Range Interpretation Comments Basophils (%) (Auto) (test code = 706-2) 0.2 0.0-1.0 [facility] CampusIM GRANULOCYTES %2017-11-27 07:29:00* Test Item Value Reference Range Interpretation Comments IM GRANULOCYTES % (test code = IM GRANULOCYTES %) 0.5 0.0- 1.0 [facility] CampusNeutrophils # (Auto)2017-11-27 07:29:00* Test Item Value Reference Range Interpretation Comments Neutrophils # (Auto) (test code = 751-8) 5.0 2.1-6.9 [facility] CampusLymphocytes # (Auto)2017-11-27 07:29:00* Test Item Value Reference Range Interpretation Comments Lymphocytes # (Auto) (test code = 32750-5) 0.7 1.0-3.2 L [facility] CampusMonocytes # (Auto)2017-11-27 07:29:00* Test Item Value Reference Range Interpretation Comments Monocytes # (Auto) (test code = 742-7) 0.7 0.2-0.8 [facility] CampusEosinophils # (Auto)2017-11-27 07:29:00* Test Item Value Reference Range Interpretation Comments Eosinophils # (Auto) (test code = 711-2) 0.1 0.0-0.4 [facility] CampusBasophils # (Auto)2017-11-27 07:29:00* Test Item Value Reference Range Interpretation Comments Basophils # (Auto) (test code = 704-7) 0.0 0.0-0.1 [facility] CampusAbsolute Immature Granulocyte (auto 2017-11-27 07:29:00* Test Item Value Reference Range Interpretation Comments Absolute Immature Granulocyte (auto (kayla t code = Absolute Immature Granulocyte (auto) 0.03 0-0.1 [facility] CampusMagnesium Kzjkt9560-12-03 08:05:00* Test Item Value Reference Range Interpretation Comments Magnesium Level (test code = 87576-2) 1.3 1.3-2.1 [facility] CampusPlatelet Jyiphdbp5148-39-67 08:35:00* Test Item Value Reference Range Interpretation Comments Platelet Estimate (test code = 88727-1) SLIGHTLY DECREASED [facility] CampusPlatelet Morphology Jjzyfxi3530-69-69 08:35:00* Test Item Value Reference Range Interpretation Comments Platelet Morphology Comment (test code = 15530-0) FEW LARGE NO CLUMPING SEEN ON SLIDE. 0835 on 11/25/17 by Jessica Delgadillo [facility] CenterAnisocytosis2018-02-07 08:35:00* Test Item Value Reference Range Interpretation Comments Anisocytosis (test code = 702-1) SLIGHT [facility] CampusRed Cell Morphology Ohldmpp0494-53-79 08:35:00* Test Item Value Reference Range Interpretation Comments Red Cell Morphology Comment (test code = 6742-1) NORMAL [facility] CampusPlatelet Zojmbmwf8119-38-16 08:35:00* Test Item Value Reference Range Interpretation Comments Platelet Estimate (test code = 69512-1) SLIGHTLY DECREASED [facility] CampusPlatelet Morphology Rlijrod6860-82-17 08:35:00* Test Item Value Reference Range Interpretation Comments Platelet Morphology Comment (test code = 06193-5) FEW LARGE NO CLUMPING SEEN ON SLIDE. 0835 on 11/25/17 by [facility]illo [facility] CenterAnisocytosis2018-02-07 08:35:00* Test Item Value Reference Range Interpretation Comments Anisocytosis (test code = 702-1) SLIGHT [facility] CampusRed Cell Morphology Kofhxwh8322-22-27 08:35:00* Test Item Value Reference Range Interpretation Comments Red Cell Morphology Comment (test code = 6742-1) NORMAL [facility] CampusCreatine Kinase WW6410-16-72 16:39:00* Test Item Value Reference Range Interpretation Comments Creatine Kinase MB (test code = 92388-1) 1.20 0.00-5.00 [facility] CampusTroponin M6566-06-85 16:39:00* Test Item Value Reference Range Interpretation Comments Troponin I (test code = 69121-9) 0.009 0-0.300 [facility] CampusCreatine Roaqjz4594-85-05 16:34:00* Test Item Value Reference Range Interpretation Comments Creatine Kinase (test code = 2157-6) 80 29-168 [facility] CampusTotal Cejfbqkfk9906-44-94 08:21:00* Test Item Value Reference Range Interpretation Comments Total Bilirubin (test code = 1975-2) 0.8 0.2-1.2 [facility] CampusAspartate Amino Transf (AST/SGOT) 2017-11-23 08:21:00* Test Item Value Reference Range Interpretation Comments Aspartate Amino Transf (AST/SGOT) (test code = Aspartate Amino Transf (AST/SGOT)) 22 5-34 [facility] CampusAlanine Aminotransferase (ALT/SGPT) 2017-11-23 08:21:00* Test Item Value Reference Range Interpretation Comments Alanine Aminotransferase (ALT/SGPT) (test code = 1742-6) 12 0-55 [facility] CampusTotal Uxekwjl6328-16-39 08:21:00* Test Item Value Reference Range Interpretation Comments Total Protein (test code = 2885-2) 7.4 6.5-8.1 [facility] CampusAlbumin2018-02-05 08:21:00* Test Item Value Reference Range Interpretation Comments Albumin (test code = 1751-7) 3.5 3.5-5.0 [facility] CampusGlobulin2018-02-05 08:21:00* Test Item Value Reference Range Interpretation Comments Globulin (test code = 51660-8) 3.9 2.3-3.5 H [facility] CampusAlbumin/Globulin Ngosl2148-88-98 08:21:00 * Test Item Value Reference Range Interpretation Comments Albumin/Globulin Ratio (test code = 1759-0) 0.9 0.8-2.0 [facility] CampusAlkaline Ldfkyoavblp1220-01-33 08:21:00* Test Item Value Reference Range Interpretation Comments Alkaline Phosphatase (test code = 6768-6) 66 40-150 [facility] CampusLipase2018-02-05 08:21:00* Test Item Value Reference Range Interpretation Comments Lipase (test code = 3040-3) [facility] CampusLipase2018-02-05 08:21:00* Test Item Value Reference Range Interpretation Comments Lipase (test code = 3040-3) [facility] CampusLipase2018-02-05 08:21:00* Test Item Value Reference Range Interpretation Comments Lipase (test code = 3040-3) [facility] CampusUrine MRI7480-77-95 22:16:00* Test Item Value Reference Range Interpretation Comments Urine WBC (test code = 5821-4) 6-10 0-5 H [facility] CampusUrine PSP3659-54-09 22:16:00* Test Item Value Reference Range Interpretation Comments Urine RBC (test code = 59871-2) 6-10 0-5 H [facility] CampusUrine Qytpjnat3614-07-83 22:16:00* Test Item Value Reference Range Interpretation Comments Urine Bacteria (test code = 24234-8) FEW NONE [facility] CampusUrine Epithelial Rspfi4093-64-88 22:16:00 * Test Item Value Reference Range Interpretation Comments Urine Epithelial Cells (test code = 93244-0) MODERATE NONE [facility] CampusB-Type Natriuretic Welqfpn5715-11-66 20:47:00* Test Item Value Reference Range Interpretation Comments B-Type Natriuretic Peptide (test code = 99157-5) 49.2 0-100 [facility] CampusThyroid Stimulating Hormone (TSH) 2017-11-22 20:47:00* Test Item Value Reference Range Interpretation Comments Thyroid Stimulating Hormone (TSH) (test code = 63611-3) 0.622 0.350-4.940 [facility] CampusThyroid Stimulating Hormone (TSH) 2017-11-22 20:47:00* Test Item Value Reference Range Interpretation Comments Thyroid Stimulating Hormone (TSH) (test code = 17679-2) 0.622 0.350-4.940 [facility] CampusProthrombin Fqfa8124-33-36 20:34:00* Test Item Value Reference Range Interpretation Comments Prothrombin Time (test code = 5902-2) 13.3 11.9-14.5 [facility] CampusProthromb Time International Ratio 2017-11-22 20:34:00* Test Item Value Reference Range Interpretation Comments Prothromb Time International Ratio (test code = 6301-6) 0.96 Oral Anticoagulant Therapy INR Values:1. Low Intensity Therapy 1.5 - 2.02 . Moderate Intensity Therapy 2.0 - 3.03. High Intensity Therapy(1) 2.5 - 3. 54. High Intensity Therapy(2) 3.0 - 4.05. Panic Value INR > 5.0 [facility] CampusActivated Partial Thromboplast Time 2017-11-22 20:34:00* Test Item Value Reference Range Interpretation Comments Activated Partial Thromboplast Time (test code = 55104-3) 30.0 23.8-35.5 [facility] CampusUrine Qpsld0415-47-82 20:34:00* Test Item Value Reference Range Interpretation Comments Urine Color (test code = 5778-6) YELLOW YELLOW [facility] CampusUrine Unsrgtz0858-99-12 20:34:00* Test Item Value Reference Range Interpretation Comments Urine Clarity (test code = 57512-1) HAZY CLEAR [facility] CampusUrine Specific Ijiexqp4724-33-55 20:34:00 * Test Item Value Reference Range Interpretation Comments Urine Specific [place] (test code = 5811-5) 1.025 1.010-1.02 5 [facility] CampusUrine qA1852-63-94 20:34:00* Test Item Value Reference Range Interpretation Comments Urine pH (test code = 00024-3) 5 5-7 [facility] Leukocyte Cupqefkp3947-01-12 20:34:00* Test Item Value Reference Range Interpretation Comments Urine Leukocyte Esterase (test code = 5799-2) TRACE NEGATIVE H [facility] Hqnbiak1417-53-57 20:34:00* Test Item Value Reference Range Interpretation Comments Urine Nitrite (test code = 43805-3) NEGATIVE NEGATIVE [facility] Mwejjgw8098-15-07 20:34:00* Test Item Value Reference Range Interpretation Comments Urine Protein (test code = 5804-0) NEGATIVE NEGATIVE [facility] Glucose (UA)2017-11-22 20:34:00* Test Item Value Reference Range Interpretation Comments Urine Glucose (UA) (test code = 2349-9) NEGATIVE NEGATIVE [facility] Gsjrkcm8718-76-60 20:34:00* Test Item Value Reference Range Interpretation Comments Urine Ketones (test code = 04630-6) NEGATIVE NEGATIVE [facility] Ptxsrhxidxjg8443-40-71 20:34:00* Test Item Value Reference Range Interpretation Comments Urine Urobilinogen (test code = 62795-4) 1 0.2-1 [facility] CampusUrine Vidgtjgvo9946-34-30 20:34:00* Test Item Value Reference Range Interpretation Comments Urine Bilirubin (test code = 1978-6) 1+ NEGATIVE H [facility] Mqyfi2489-53-61 20:34:00* Test Item Value Reference Range Interpretation Comments Urine Blood (test code = 37956-9) 1+ NEGATIVE H [facility] CampusLactic Acid Tmauz6638-52-64 20:28:00* Test Item Value Reference Range Interpretation Comments Lactic Acid Level (test code = Lactic Acid Level) 12.3 4.5- 19.8 [facility] CampusAmylase Qlubq4284-54-35 20:28:00* Test Item Value Reference Range Interpretation Comments Amylase Level (test code = 1798-8) 47 25-125 [facility] CampusAmylase Adrjz8427-46-84 20:28:00* Test Item Value Reference Range Interpretation Comments Amylase Level (test code = 1798-8) 47 25-125 [facility] CampusAmylase Rjzmn5583-96-55 20:28:00* Test Item Value Reference Range Interpretation Comments Amylase Level (test code = 1798-8) 47 25-125 [facility] CampusMODIFIED BA. SWALLOW [facility] [address] [address] Patient Name: COMPA CASAS MR #: [id number] : 1950 Age/Sex: 67/F Req #: [id number] Adm Physician: DWAIN ANDERSON MD Ordered by: BONIFACIO BECERRA MD Report #: [id number] Location: ICU Room/Bed: ICU [facility] Procedure: [id number] DX/M ODIFIED BA. SWALLOW Exam Date: 01/05/18 Exam Time: 0 820 REPORT STATUS: Signed PROCEDURE: X-RAY MODIFIED BARIUM SWALLOW COMPARISON: None. INDICATIONS: Not provided. DISCUSSION: F luoroscopic examination was performed in conjunction with speech pathology, krissy uring swallowing of a variety of thin and thick liquid consistencies. CONCLUSION: No penetration or aspiration. Please see the report elicia calvillo speech pathology for complete details. Dictated by: Dwain Fisher M.D. on 01/05/2018 at 12:04 Electronically approved by: Tesha Zepeda on 01/05/2018 at 12:04 Dictated By: DWAIN FISHER MD Electronical ly Signed By: DWAIN FISHER MD on 01/05/18 1204 Transcribed By: SOLO on 01/05/18 1204 COPY TO: BONIFACIO BECERRA MD CHEST XRAY LINE PLACEMENT [place] [address] Patient Name: COMPA CASAS MR #: [id number] : 1950 Age/Sex: 67/F Req #: [id number] Adm Physician: DWAIN ANDERSON MD Ordered by: BONIFACIO BECERRA MD Report #: [id number] Locati on: ICU Room/Bed: ICU [facility] Procedure: [id number] DX/C HEST XRAY LINE PLACEMENT Exam Date: [...] 1:31 PM Dictated By: COLETTE ESPINAL MD Transcribed By: PHAM on 133 COPY TO: BONIFACIO BECERRA MD CHEST SINGLE (PORTABLE) [place] [address] Patient Name: COMPA CASAS MR #: [id number] : 1950 Age/Sex: 67/F Req #: [id number] Adm Physician: DWAIN ANDERSON MD Ordered by: ROMAN RENTERIA MD Report #: [id number] Location: ICU Room/Bed: ICU [facility] Procedure: [id number] DX/CHEST SINGLE (PORTABLE) Exam Date: 01/02/18 Exam Time: REPORT STATUS: Signed CHEST SINGLE (PORTABLE), 01/02/2018 [...] TO: ROMAN RENTERIA MD CHEST SINGLE (PORTABLE) [place] [address] Patient Name: COMPA CASAS MR #: [id number] : 1950 Age/Sex: 67/F Req #: [id number] Adm Physician: DWAIN ANDERSON MD Ordered by: ROMAN RENTERIA MD Report #: [id number] Location: ICU Room/Bed: ICU [facility] Procedure: [id number] DX/CHEST SINGLE (PORTABLE) Exam Date: 12/31/17 Exam Time: 03 07 REPORT STATUS: Signed CHEST SINGLE (PORTABLE), 12/31/2017 7:00 AM Technique: CHEST SINGLE (PORTABLE) Comparison: 12/27/2017 Clinical history: Shortness of breath Findings: See Impression Impression: Limited portable view with motion artifact, soft tissue attenuation 1. Lines/Tubes: E T tube 2.9 cm above the milly. NG tube tip overlies the gastric body. 2. S table enlarged cardiomediastinal silhouette with diffuse bilateral pulmonary o pacities. Possible underlying pleural fluid. Signed by: Fredy Johnson on 12/31/2017 6:58 AM Dictated By: JUANITA MARIE MD Electronically Si gned By: JUANITA MARIE MD on 12/31/17657 Transcribed By: PHAM on 05 2458 COPY TO: ROMAN RENTERIA MD CHEST SINGLE (PORTABLE) [place] [address] Patient Name: COMPA CASAS MR #: [id number] : 1950 Age/Sex: 67/F Req #: [id number] Adm Physician: DWAIN ANDERSON MD Ordered by: ROMAN RENTERIA MD Report #: [id number] Location: ICU Room/Bed: ICU [facility] Procedure: [id number] DX/CHEST SINGLE (PORTABLE) Exam Date: 12/28/17 Exam Time: 07 40 REPORT STATUS: Signed PROCEDURE: A single AP view of the chest. COMPARISON: [facility], DX, CHEST SINGLE (PORTABLE), 12/28/19 18, [...] Joesph Saravia D.O. on 12/28/2017 at 8:38 Brittany medina approved by: Joesph Saravia D.O. on 12/28/2017 at 8:38 Dictated By: JOESPH SARAVIA DO 7 COPY TO: ROMAN RENTERIA MD CHEST SINGLE (PORTABLE) [place] [address] Patient Name: COMPA CASAS MR #: [id number] : 1950 Age/Sex: 67/F Req #: [id number] Adm Physician: DWAIN ANDERSON MD Ordered by: BONIFACIO BECERRA MD Report #: [id number] Location: ICU Room/Bed: ICU [facility] Procedure: [id number] DX/C HEST SINGLE (PORTABLE) Exam Date: 12/27/17 [...] HEART AND MEDIASTINUM: Cardiac size is severely enlarged . There are atherosclerotic calcifications within the aorta. BONES AND SO FT TISSUES: No acute osseous lesion. Soft tissues are unremarkable. UPP ER ABDOMEN: No free air under the diaphragm. IMPRESSION: Stable inte rstitial edema and airspace disease Signed by: Dr. Sin Reed M.D. on 12/17 7:34 AM Dictated By: SIN MORELOS MD Electronically [place] d By: SIN MORELOS MD on 12/27/17733 Transcribed By: PHAM on 12/27 COPY TO: BONIFACIO BECERRA MD [facility] ([place] [address] Patient Name: COMPA CASAS MR #: [id number] : 1950 Age/Sex: 67/F Req #: [id number] Adm Physician: DWAIN ANDERSON MD Ordered by: DWAIN ANDERSON MD Report #: [id number] Location: I Room/Bed: ICU 194-1 Procedure: DX/ABDOME N-1VIEW (KUB) Exam Date: 12/27/17 Exam [...] TO: DWAIN ANDERSON MD CHEST SINGLE (PORTABLE) [place] [address] Patient Name: COMPA CASAS MR #: [id number] : 1950 Age/Sex: 67/F Req #: [id number] Adm Physician: DWAIN ANDERSON MD Ordered by: BONIFACIO BECERRA MD Report #: [id number] Locati on: ICU Room/Bed: ICU 194 Procedure: [id number] DX/C HEST SINGLE (PORTABLE) Exam Date: 12/26/17 [...] TO: BONIFACIO BECERRA MD CHEST SINGLE (PORTABLE) [place] [address] Patient Name: COMPA CASAS MR #: [id number] : 1950 Age/Sex: 67/F Req #: [id number] Adm Physician: DWAIN ANDERSON MD Ordered by: BONIFACIO BECERRA MD Report #: [id number] Location: ICU Room/Bed: [place] [address] Procedure: [id number] DX/C HEST SINGLE (PORTABLE) Exam Date: 12/26/17 [...] silhouette. BONES AND SOFT TISSUES: No acute osseou s lesion. Soft tissues are unremarkable. UPPER ABDOMEN: No free air unde r the diaphragm. IMPRESSION: Diffuse bilateral airspace opacities, r epresenting edema and/or pneumonia. Enlarged cardiomediastinal silhouette and bilateral pleural effusions. No significant interval change from prior exam. Signed by: Dr. Colette Espinal MD on 12/26/2017 9:28 AM Dictated By: VALERIO ESPINAL MD 7 Tra nscribed By: PHAM on 12/26/17927 COPY TO: BONIFACIO BECERRA MD CHEST SINGLE (PORTABLE) [place] [address] Patient Name: COMPA CASAS MR #: [id number] : 1950 Age/Sex: 67/F Req #: [id number] Adm Physician: DWAIN ANDERSON MD Ordered by: BONIFACIO BECERRA MD Report #: [id number] Location: ICU Room/Bed: [place] [address] Procedure: [id number] DX/C HEST SINGLE (PORTABLE) Exam Date: 12/25/17 [...] TO: BONIFACIO BECERRA MD CHEST SINGLE (PORTABLE) [place] [address] Patient Name: COMPA CASAS MR #: [id number] : 1950 Age/Sex: 67/F Req #: [id number] Adm Physician: DWAIN ANDERSON MD Ordered by: BONIFACIO BECERRA MD Report #: [id number] Location: ICU Room/Bed: ICU [facility] Procedure: [id number] DX/C HEST SINGLE (PORTABLE) Exam Date: 12/24/17 Exam Time : 0800 REPORT STATUS: Signed PROCEDURE: CHEST SINGLE (PORTABLE) ZACARIAS HNIQUE: Portable AP chest INDICATION: Pneumonia COMPARISON: Patients [facility], DX, CHEST SINGLE (PORTABLE), 12/23/2017, 5:35. FINDINGS: [...] TO: BONIFACIO CLAYTON MD CHEST SINGLE (PORTABLE) [place] [address] Patient Name: COMPA CASAS MR #: [id number] : 1950 Age/Sex: 67/F Req #: [id number] Adm Physician: DWAIN ANDERSON MD Ordered by: BONIFACIO BECERRA MD Report #: [id number] Location: ICU Room/Bed: ICU [facility] Procedure: [id number] DX/C HEST SINGLE (PORTABLE) Exam Date: 12/23/17 [...] 6:44 AM Dictated By: SIN Bansal MD 3 Transc ribed By: PHAM on 12/23/17643 COPY TO: BONIFACIO BECERRA MD CHEST SINGLE (PORTABLE) [place] [address] Patient Name: COMPA CASAS MR #: [id number] : 1950 Age/Sex: 67/F Req #: [id number] Adm Physician: DWAIN ANDERSON MD Ordered by: DAWIN ANDERSON MD Report #: [id number] Location: ICU Room/Bed: ICU [facility] Procedure: [id number] DX/CHEST SINGLE (PORTABLE) Exam Date: 12/22/17 Exam Time: 063 0 REPORT STATUS: Signed PROCEDURE: A single AP view of the chest. COMPARISON: [facility], DX, CHEST SINGLE (PORTABLE), 8, 16:03. INDICATIONS: INTUBATED FINDINGS: Lines/tubes: Endo tracheal tube, nasogastric tube and right PICC is unchanged. Lungs: Dif fuse pulmonary edema unchanged. Pleura: There is no pleural effusion or p neumothorax. Heart and mediastinum: The heart remains enlarged. Bon es: No acute bony abnormality. IMPRESSION: No significant interval change with diffuse pulmonary edema. Joesph Saravia D.O. Dictated by : Joesph Saravia D.O. on 12/22/2017 at 8:53 Electronically approved by: Joesph Saravia D.O. on 12/22/2017 at 8:53 Dictated By: JOESPH AN DO 2 Transcri bed By: SOLO on 12/22/17852 COPY TO: DWAIN ANDERSON MD CHEST SINGLE (PORTABLE) [place] [address] Patient Name: COMPA CASAS MR #: [id number] : 1950 Age/Sex: 67/F Req #: [id number] Adm Physician: DWAIN ANDERSON MD Ordered by: BONIFACIO BECERRA MD Report #: [id number] Location: ICU Room/Bed: [place] [address] Procedure: [id number] DX/C HEST SINGLE (PORTABLE) Exam Date: 12/21/17 [...] TO: BONIFACIO CLAYTON MD CHEST SINGLE (PORTABLE) [place] [address] Patient Name: COMPA CASAS MR #: [id number] : 1950 Age/Sex: 67/F Req #: [id number] Adm Physician: DWAIN ANDERSON MD Ordered by: ROMAN RENTERIA MD Report #: [id number] Location: ICU Room/Bed: [place] [address] Procedure: [id number] DX/CHEST SINGLE (PORTABLE) Exam Date: 12/21/17 Exam Time: 05 00 REPORT STATUS: Signed EXAM: CHEST SINGLE (PORTABLE), [...] TO: ROMAN RENTERIA MD CHEST SINGLE (PORTABLE) [place] [address] Patient Name: COMPA CASAS MR #: [id number] : 1950 Age/Sex: 67/F Req #: [id number] Adm Physician: DWAIN ANDERSON MD Ordered by: BONIFACIO BECERRA MD Report #: [id number] Location: ICU Room/Bed: ICU [facility] Procedure: [id number] DX/C HEST SINGLE (PORTABLE) Exam Date: 12/20/17 [...] M.D. on 12/20/2017 5:54 PM Dictated By: HSELBY GAMING MD 53 Transcribed By: PHAM on 12/20/171753 COPY TO: BONIFACIO BECERRA MD CHEST XRAY LINE PLACEMENT [place] [address] Patient Name: COMPA CASAS MR #: [id number] : 1950 Age/Sex: 67/F Req #: [id number] Adm Physician: DWAIN ANDERSON MD Ordered by: BONIFACIO BECERRA MD Report #: [id number] Locati on: ICU Room/Bed: ICU [facility] Procedure: [id number] DX/C HEST XRAY LINE PLACEMENT Exam Date: [...] TO: BONIFACIO BECERRA MD CHEST SINGLE (PORTABLE) [place] [address] Patient Name: COMPA CASAS MR #: [id number] : 1950 Age/Sex: 67/F Req #: [id number] Adm Physician: DWAIN ANDERSON MD Ordered by: BONIFACIO BECERRA MD Report #: [id number] Location: ICU Room/Bed: ICU [facility] Procedure: [id number] DX/C HEST SINGLE (PORTABLE) Exam Date: 12/20/17 [...] 10:48 AM Dictated By: SHELBY GAMING MD 1048 [place] scribed By: PHAM on 12/20/17 1048 COPY TO: BONIFACIO BECERRA MD CHEST SINGLE (PORTABLE) [place] [address] Patient Name: COMPA CASAS MR #: [id number] : 1950 Age/Sex: 67/F Req #: [id number] Adm Physician: DWAIN ANDERSON MD Ordered by: ROMAN RENTERIA MD Report #: [id number] Location: ICU Room/Bed: ICU [facility] Procedure: [id number] DX/CHEST SINGLE (PORTABLE) Exam Date: 12/20/17 Exam [...] TO: ROMAN RENTERIA MD CHEST SINGLE (PORTABLE) [place] [address] Patient Name: COMPA CASAS MR #: [id number] : 1950 Age/Sex: 67/F Req #: [id number] Adm Physician: DWAIN ANDERSON MD Ordered by: ROMAN RENTERIA MD Report #: [id number] Location: ICU Room/Bed: ICU [facility] Procedure: [id number] DX/CHEST SINGLE (PORTABLE) Exam Date: 12/19/17 Exam Time: 17 35 REPORT STATUS: Signed EXAMINATION: CHEST SINGLE (PORTABLE) INDICATION: COMPARISON: CT chest from 12/19/2017 FINDINGS: AP view TUBES and LINES: Interval intubation with tip 1.8 cm above the milly. NG/OG tube crossing the diaphragm. Tip not included in th e exam. LUNGS: Low lung volumes with extensive [...] 6:28 PM Dictated By: SHELBY GAMING MD 1828 Transcribed By: PHAM on 12/19/17 1828 COPY TO: ROMAN RENTERIA MD CT CHEST WO [facility] [address] [place] [address] Patient Name: COMPA CASAS MR #: [id number] : 1950 Age/Sex: 67/F Req #: [id number] Adm Physician: DWAIN ANDERSON MD Ordered by: DWAIN ANDERSON MD Report #: [id number] Location: [facility] Room/Bed: ICU 194 Procedure: [id number] CT/CT FAY ST Exam Date: 12/19/17 Exam Time: 1150 REPO [...] 1310 Transcribed By: PHAM on 12/19/17 1310 [employer] Y TO: DWAIN ANDERSON MD VQ LUNG SCAN VENT PERFUSION [place] [address] Patient Name: COMPA CASAS MR #: [id number] : 1950 Age/Sex: 67/F Req #: [id number] Adm Physician: DWAIN ANDERSON MD Ordered by: ROMAN RENTERIA MD Report #: [id number] Location: MED/SURG Room/Bed: [facility] Procedure: [id number] NM/VQ L LIZ SCAN VENT PERFUSION Exam [...] TO: ROMAN RENTERIA MD CHEST 2 VIEWS [place] [address] Patient Name: COMPA CASAS MR #: [id number] : 1950 Age/Sex: 67/F Req #: [id number] Adm Physician : DWAIN ANDERSON MD Ordered by: ROMAN RENTERIA MD Report #: [id number] Location: MED/SURG Room/Bed: [facility] Procedure: [id number] DX/CHES T 2 VIEWS Exam Date: 12/16/17 Exam Time: 0900 REPORT STATUS: Signed PROCEDURE: X-RAY CHEST, TWO VIEWS COMPARISON: Chest x -ray 2/23/18. INDICATIONS: PNEUMONIA FINDINGS: LUNGS: There is s [...] at 11:12 Dictated By: DALE MILES MD 111 Transcribed By: SOLO on 12/16 1112 COPY TO: ROMAN RENTERIA MD CHEST SINGLE (PORTABLE) [place] [address] Patient Name: COMPA CASAS MR #: [id number] : 1950 Age/Sex: 67/F Req #: [id number] Adm Physician: DWAIN ANDERSON MD Ordered by: SIMI DUTTA COMPRESSION MOLDING MACHINE OPERATOR Report #: [id number] Locat ion: ICU Room/Bed: [place] [address] Procedure: [id number] DX/ CHEST SINGLE (PORTABLE) Exam Date: 12/11/17 [...] AND MEDIASTINUM: Cardiac size is moderately enlarged. BONE S AND SOFT TISSUES: No acute osseous lesion. Soft tissues are unremarkable. UPPER ABDOMEN: No free air under the diaphragm. IMPRESSION: 1. Right upper lobe predominant pneumonia. 2. Cardiomegaly with mild edema Signed by: Dr. Sin Reed M.D. on 12/11/2017 6:37 AM Dictated By: BECKI MORELOS MD 0637 COPY TO: NICHOLAS DUTTA COMPRESSION MOLDING MACHINE OPERATOR CT CHEST W [place] [address] Patient Name: COMPA CASAS MR #: [id number] : 1950 Age/Sex: 67/F Req #: [id number] Adm Physician: Ordered by: SIMI DUTTA COMPRESSION MOLDING MACHINE OPERATOR Report #: [id number] Location: ER Room/Bed: Procedure: [id number] CT/CT CHEST W Exam Date: 12/10/17 Exam [...] at 16:09 Dictated By: YASMANY PICHARDO MD 160 Transcribed By: SOLO on 12/10/17 1609 COPY TO: SIMI DUTTA COMPRESSION MOLDING MACHINE OPERATOR CHEST SINGLE (PORTABLE) [place] [address] Patient Name: COMPA CASAS MR #: [id number] : 1950 Age/Sex: 67/F Req #: [id number] Adm Physician: Ordered by: SIMI DUTTA COMPRESSION MOLDING MACHINE OPERATOR Report #: [id number] Location: ER Room/Bed: Procedure: [id number] DX/CHEST SINGLE (PORTABLE) Exam Date: 12/10/17 Exam Time: [address] ATUS: Signed PROCEDURE: A single AP view of the chest. COMPARISON: [facility], DX, CHEST SINGLE (PORTABLE), 11/22/2017, 20:51. I [...] pneumonia in the appropriate clinical setting. Unilateral alveola r pulmonary edema is a secondary consideration. Yasmany Pichardo M.D. Dictated by: Yasmany Pichardo M.D. on 12/10/2017 at 11:50 Mago ctronically approved by: Yasmany Pichardo M.D. on 12/10/2017 at 11:50 Dictated By: YASMANY PICHARDO MD 1150 Transcribed By: SOLO on 12/10/17 1150 COPY TO: SIMI DUTTA COMPRESSION MOLDING MACHINE OPERATOR ABDOMEN COMP INCL UPR or DECUB [place] [address] Patient Name: COMPA CASAS MR #: [id number] : 1950 Age/Sex: 67/F Req #: [id number] Adm Physician: ARACELY WHITE MD Ordered by: QUOC HANNAH MD Report #: [id number] Location: MED/SURG3 Room/Bed: [facility] Procedure: [id number] DX/ABDOMEN COMP INCL UPR or DECUB Exam Date: 11/23/17 Exam Time: 2100 REPORT STATUS: Signed EXAM: ABDOMEN COMP INCL UPR or DECUB DATE: 11/23/2017 10:47 AM Time stamp on exam: 2044 hours INDICATION : Small bowel obstruction COMPARISON: CT of the [...] TO: QUOC HANNAH MD CHEST SINGLE (PORTABLE) [place] [address] Patient Name: COMPA CASAS MR #: [id number] : 1950 Age/Sex: 67/F Req #: [id number] Adm Physician: Ordered by: MARLENY CHAMBERLAIN COMPRESSION MOLDING MACHINE OPERATOR Report #: [id number] Location: ER Room/Bed: Procedure: [id number] DX/CHEST SINGLE (PORTABLE) Exam Date: 11/22/17 Exam [...] PRATHER MD 04 COPY TO: DOTTIE CHAMBERLAIN COMPRESSION MOLDING MACHINE OPERATOR CT ABDOMEN/PELVIS W [place] [address] Patient Name: COMPA CASAS MR #: [id number] : 1950 Age/Sex: 67/F Req #: [id number] Adm Physician: Ordered by: MARLENY CHAMBERALIN COMPRESSION MOLDING MACHINE OPERATOR Report #: [id number] Location: ER Room/Bed: Procedure: [id number] CT/CT ABDOMEN/PELVIS W Jeremy calvillo Date: 11/22/17 Exam Time: 2099 REPORT STATUS: Signed EXAM: CT ABDOMEN AND PELVIS with IV CONTRAST DATE: 11/22/2017 7:08 PM Time stamp on Exam: 2120 hours INDICATION: Upper abdominal pain COMPARISO N: None TECHNIQUE: The abdomen and pelvis were scanned using a multidetector helical scanner. Coronal and sagittal reformations were obtained. Routine pro tocol performed. IV Contrast: 100 cc Isovue-370 Oral Contrast: None CTDI vol has been reviewed. It is below the limits set by the Radiation Protocol Co mmittee ([facility]). FINDINGS: LOWER THORAX: Mild [...]
--- NOTE | 2020-09-01 17:43 | NUR ---
COVID SWAB DONE. CALLED LAB AND SPOKE TO LAZARO REGARDING SWAB TO BE DONE HERE FOR RAPID TO R/O +COVID.
[2020-09-01] MEDS ORDERED: AZITHROMYCIN 500MG/NS 250 ML 250 ML IV ONE (17:45)
[2020-09-01] MEDS ORDERED: CEFTRIAXONE SOD 1 GM/NS 50 ML 50 ML IV ONE (17:45)
[2020-09-01] MEDS ORDERED: DEXAMETHASONE SOD PHOS 10 MG/1 ML VIAL IV ONE (17:45)
[2020-09-01 17:59] LABS: BASOPHILS # (AUTO) 0.1 (0.0-0.1); BASOPHILS % 0.5 % (0.0-1.0); EOSINOPHILS # (AUTO) 0.1 (0.0-0.4); EOSINOPHILS % 0.9 % (0.0-6.0); HEMATOCRIT 45.9 % (34.2-44.1); HEMOGLOBIN 14.1 g/dL (12.0-16.0); LYMPHOCYTES # (AUTO) 1.5 (1.0-3.2); LYMPHOCYTES % 9.8 % (18.0-39.1); MEAN CORPUSCULAR HEMOGLOBIN 24.2 pg (28-32); MEAN CORPUSCULAR HGB CONC 30.7 g/dL (31-35); MEAN CORPUSCULAR VOLUME 78.7 fL (81-99); MONOCYTES # (AUTO) 1.4 (0.2-0.8); MONOCYTES % 8.7 % (4.4-11.3); NEUTROPHILS # (AUTO) 12.2 (2.1-6.9); NEUTROPHILS % 78.5 % (38.7-80.0); PLATELET COUNT 233 x10e3/uL (140-360); RED BLOOD COUNT 5.83 x10e6/uL (3.6-5.1); RED CELL DISTRIBUTION WIDTH 19.8 % (11.7-14.4)
[2020-09-01] MEDS ORDERED: CEFTRIAXONE SOD 1 GM VIAL ONE (18:02)
[2020-09-01 18:24] LABS: ALBUMIN 3.7 g/dL (3.5-5.0); ALBUMIN/GLOBULIN RATIO 0.8 (0.8-2.0); CALCIUM 9.6 mg/dL (8.4-10.2); CREATININE, SERUM 1.54 mg/dL (0.57-1.11)
--- NOTE | 2020-09-01 18:33 | Emergency Department Note ---
History of Present Illnes History of Present Illness Chief Complaint: COVID PUI History of Present Illness This is a 70 year old female presents to the ED for 3 day h/o dyspnea. Historian: Patient Arrival Mode: Car EMS Treatment DIRECTOR OF PRIMARY CARE: O2 Additional Treatment DIRECTOR OF PRIMARY CARE: NONE Onset (how long ago): day(s) (3) Severity: moderate Duration (how long): day(s) Timing of current episode: constant Progression: worsening Chronicity: new Context: Reports recent illness Relieving factors: none Exacerbating factors: none Associated symptoms: Reports shortness of breath Past Medical/Family History Physician Review I have reviewed the patient's past medical and family history. Any updates have been documented here. Past Medical History Recent Fever: No Clinical Suspicion of Infectio: Yes New/Unexplained Change in Ment: No Past Medical History: Hypertension, Diabetes, COPD, A-Fib, Depression, Hyperlipedemia Other Medical History: Sleep Apnea ARDS OXYGEN 24 hrs a day 4/L PNEUMONIA Past Surgical History: Hysterectomy, Hernia Repair Other Surgery: Bowel Resection Social History Smoking Cessation: Former smoker Counseling Performed: No Alcohol Use: None Any Illegal Drug Use: No Other Last Tetanus: UTD Any Pre-Existing Lines (PICC,: No Review of Systems Review of Systems Constitutional: Reports no symptoms EENTM: Reports no symptoms Cardiovascular: Reports no symptoms Respiratory: Reports dyspnea Gastrointestinal: Reports no symptoms Genitourinary: Reports no symptoms Musculoskeletal: Reports no symptoms Integumentary: Reports no symptoms Neurological: Reports no symptoms Psychological: Reports no symptoms Endocrine: Reports no symptoms Hematological/Lymphatic: Reports no symptoms Physical Exam Related Data Allergies: Coded Allergies: No Known Allergies (Unverified , 12/10/17) Triage Vital Signs Vital Signs Date Time Temp Pulse Resp B/P (MAP) Pulse Ox O2 Delivery O2 Flow Rate FiO2 09/01/20 17:35 98.8 81 18 150/57 70 Nasal Cannula 09/01/20 17:51 15.0 Vital signs reviewed: Yes Physical Exam CONSTITUTIONAL Constitutional: Present morbidly obese HENT HENT: Present normocephalic, Present atraumatic, Present oropharynx clear /moist, Present nose normal HENT L/R: Present left ext ear normal, Present right ext ear normal EYES Eyes: Reports PERRL, Reports conjunctivae normal NECK Neck: Present ROM normal PULMONARY Pulmonary: Present effort normal, Present breath sounds normal CARDIOVASCULAR Cardiovascular: Present regular rhythm, Present heart sounds normal, Present capillary refill normal, Present normal rate GASTROINTESTINAL Abdominal: Present soft, Present nontender, Present bowel sounds normal GENITOURINARY Genitourinary: Present exam deferred SKIN Skin: Present warm, Present dry MUSCULOSKELETAL Musculoskeletal: Present ROM normal NEUROLOGICAL Neurological: Present alert, Present oriented x 3, Present no gross motor or sensory deficits PSYCHOLOGICAL Psychological: Present mood/affect normal, Present judgement normal Results Laboratory Result Diagram: 09/01/20 3923 Laboratory Laboratory Tests Test 09/01/20 17:38 White Blood Count 15.55 x10e3/uL (4.8-10.8) Red Blood Count 5.83 x10e6/uL (3.6-5.1) Hemoglobin 14.1 g/dL (12.0-16.0) Hematocrit 45.9 % (34.2-44.1) Mean Corpuscular Volume 78.7 fL (81-99) Mean Corpuscular Hemoglobin 24.2 pg (28-32) Mean Corpuscular Hemoglobin Concent 30.7 g/dL (31-35) Red Cell Distribution Width 19.8 % (11.7-14.4) Platelet Count 233 x10e3/uL (140-360) Neutrophils (%) (Auto) 78.5 % (38.7-80.0) Lymphocytes (%) (Auto) 9.8 % (18.0-39.1) Monocytes (%) (Auto) 8.7 % (4.4-11.3) Eosinophils (%) (Auto) 0.9 % (0.0-6.0) Basophils (%) (Auto) 0.5 % (0.0-1.0) Neutrophils # (Auto) 12.2 (2.1-6.9) Lymphocytes # (Auto) 1.5 (1.0-3.2) Monocytes # (Auto) 1.4 (0.2-0.8) Eosinophils # (Auto) 0.1 (0.0-0.4) Basophils # (Auto) 0.1 (0.0-0.1) Absolute Immature Granulocyte (auto 0.25 x10e3/uL (0-0.1) Sodium Level 136 mmol/L (136-145) Potassium Level 3.0 mmol/L (3.5-5.1) Chloride Level 85 mmol/L (98-107) Carbon Dioxide Level 35 mmol/L (22-29) Anion Gap 19.0 mmol/L (8-16) Blood Urea Nitrogen 55 mg/dL (7-26) Creatinine 1.54 mg/dL (0.57-1.11) Estimat Glomerular Filtration Rate 33 ML/MIN (60-) BUN/Creatinine Ratio 36 (6-25) Glucose Level 136 mg/dL (74-118) Calcium Level 9.6 mg/dL (8.4-10.2) Total Bilirubin 0.9 mg/dL (0.2-1.2) Aspartate Amino Transf (AST/SGOT) 30 IU/L (5-34) Alanine Aminotransferase (ALT/SGPT) 13 IU/L (0-55) Alkaline Phosphatase 137 IU/L (40-150) Creatine Kinase 174 IU/L (29-168) Total Protein 8.3 g/dL (6.5-8.1) Albumin 3.7 g/dL (3.5-5.0) Globulin 4.6 g/dL (2.3-3.5) Albumin/Globulin Ratio 0.8 (0.8-2.0) Lab results reviewed: Yes Laboratory comments Laboratory Tests Test 09/01/20 17:38 White Blood Count 15.55 x10e3/uL (4.8-10.8) Red Blood Count 5.83 x10e6/uL (3.6-5.1) Hemoglobin 14.1 g/dL (12.0-16.0) Hematocrit 45.9 % (34.2-44.1) Mean Corpuscular Volume 78.7 fL (81-99) Mean Corpuscular Hemoglobin 24.2 pg (28-32) Mean Corpuscular Hemoglobin Concent 30.7 g/dL (31-35) Red Cell Distribution Width 19.8 % (11.7-14.4) Platelet Count 233 x10e3/uL (140-360) Neutrophils (%) (Auto) 78.5 % (38.7-80.0) Lymphocytes (%) (Auto) 9.8 % (18.0-39.1) Monocytes (%) (Auto) 8.7 % (4.4-11.3) Eosinophils (%) (Auto) 0.9 % (0.0-6.0) Basophils (%) (Auto) 0.5 % (0.0-1.0) Neutrophils # (Auto) 12.2 (2.1-6.9) Lymphocytes # (Auto) 1.5 (1.0-3.2) Monocytes # (Auto) 1.4 (0.2-0.8) Eosinophils # (Auto) 0.1 (0.0-0.4) Basophils # (Auto) 0.1 (0.0-0.1) Absolute Immature Granulocyte (auto 0.25 x10e3/uL (0-0.1) Prothrombin Time 14.0 seconds (11.9-14.5) Prothromb Time International Ratio 1.03 Activated Partial Thromboplast Time 26.4 seconds (23.8-35.5) Sodium Level 136 mmol/L (136-145) Potassium Level 3.0 mmol/L (3.5-5.1) Chloride Level 85 mmol/L (98-107) Carbon Dioxide Level 35 mmol/L (22-29) Anion Gap 19.0 mmol/L (8-16) Blood Urea Nitrogen 55 mg/dL (7-26) Creatinine 1.54 mg/dL (0.57-1.11) Estimat Glomerular Filtration Rate 33 ML/MIN (60-) BUN/Creatinine Ratio 36 (6-25) Glucose Level 136 mg/dL (74-118) Calcium Level 9.6 mg/dL (8.4-10.2) Total Bilirubin 0.9 mg/dL (0.2-1.2) Aspartate Amino Transf (AST/SGOT) 30 IU/L (5-34) Alanine Aminotransferase (ALT/SGPT) 13 IU/L (0-55) Alkaline Phosphatase 137 IU/L (40-150) Creatine Kinase 174 IU/L (29-168) Creatine Kinase MB 2.20 ng/mL (0-5.0) Troponin I 0.027 ng/mL (0-0.300) B-Type Natriuretic Peptide 29.4 pg/mL (0-100) Total Protein 8.3 g/dL (6.5-8.1) Albumin 3.7 g/dL (3.5-5.0) Globulin 4.6 g/dL (2.3-3.5) Albumin/Globulin Ratio 0.8 (0.8-2.0) Coronavirus (PCR) Not detected (NOTDETECTED) Imaging Imaging results reviewed: Yes Impressions [place] [id number] [place] [address] Patient Name: COMPA CASAS MR #: [id number] : 1950 Age/Sex: 70/F Req #: [id number] Adm Physician: Ordered by: HUMZA FAYE MD Report #: [id number] Location: ER Room/Bed: Procedure: [id number] DX/CHEST SINGLE (PORTABLE) Exam Date: 09/01/20 Exam Time: 1809 REPORT STATUS: Signed EXAMINATION: CHEST SINGLE (PORTABLE) INDICATION: COUGH, SOB COMPARISON: Multiple prior chest x-rays including most recent on 08/12/2020. CT of the chest on 08/07/2020. FINDINGS: TUBES and LINES: None. LUNGS: Normal lung volumes. Slight interval worsening of diffuse interstitial and airspace opacities throughout both lungs. PLEURA: Is probable trace left pleural effusion. No pneumothorax. HEART AND MEDIASTINUM: The cardiomediastinal silhouette is obscured. BONES AND SOFT TISSUES: No acute osseous lesion. Soft tissues are unremarkable. UPPER ABDOMEN: No free air under the diaphragm. IMPRESSION: Slight interval worsening of diffuse interstitial and airspace opacities throughout both lungs. Findings are compatible with known interstitial lung disease with probable superimposed pulmonary edema. Superimposed infection cannot be excluded and should be considered in the proper clinical context. Signed by: Zev Mcdonald MD on 09/01/2020 6:49 PM Dictated By: ZEV MCDONALD MD 48 Transcribed By: PHAM on 09/01/201848 COPY TO: HUMZA FAYE MD~ Procedures 12 Lead ECG Interpretation ECG Interpretation : ECG: ECG 1 [employer]: Interpreted by ED physician Date: Sep 01, 2020 Time: 18:43 Prior ECG tracings: reviewed Rhythm: sinus rhythm Ectopy: PVC's Rate: normal BPM: 88 QRS axis: normal ST segments normal: Yes T waves normal: Yes Clinical Impression: abnormal ECG Assessment & Plan Medical Decision Making MDM Diff Dx : sepsis, COVID-19 URI , PNA Assessment & Plan Final Impression: (1) COPD (chronic obstructive pulmonary disease) (2) Hypoxia (3) Person under investigation for COVID-19 Depart Disposition: ADMITTED Last Vital Signs Date Time Temp Pulse Resp B/P (MAP) Pulse Ox O2 Delivery O2 Flow Rate FiO2 09/01/20 18:29 88 22 129/74 100 Non-Rebreather 15.0 09/01/20 17:35 98.8 Home Meds Reported Medications Cefdinir (OMNICEF) 300 Mg Capsule, 300 MG PO BID, #10 CAP 09/06/20 [Xanoxolyn] No Conflict Check, 2.5 MG PO DAILY, #90 08/13/20 Levalbuterol Hcl (LEVALBUTEROL HCL) 1.25 Mg/3 Ml Vial.neb, 1.25 MG INH Q4HR, EACH 05/25/20 Benzonatate (BENZONATATE) 100 Mg Capsule, 100 MG PO PRN, CAP 05/25/20 Furosemide (FUROSEMIDE) 40 Mg Tablet, 40 MG PO BID, #30 TAB 10/11/19 Pantoprazole Sodium* (PROTONIX) 40 Mg Tablet.dr, 40 MG PO DAILY, TAB 10/11/19 Famotidine (FAMOTIDINE) 20 Mg Tab, 40 MG PO DAILY, #30 TAB 09/08/19 [Basaglar] No Conflict Check, 10 UNITS SC DAILY 07/19/19 Sertraline Hcl (ZOLOFT) 50 Mg Tablet, 50 MG PO DAILY, #30 TAB 07/19/19 Potassium Chloride* (K DUR*) 10 Meq Tabcr, 20 MEQ PO BID 07/19/19 Discontinued Reported Medications Prednisone (PREDNISONE) 50 Mg Tablet, 40 MG PO DAILY, #30 TAB 09/06/20 Medications in the ED Dexamethasone Sodium Phosphate 6 mg ONCE ONCE IV Last administered on 09/01/20at 18:04; Admin Dose 6 MG; Start 09/01/20 at 17:45; Stop 09/01/20 at 17:51; Status DC Ceftriaxone Sodium 50 ml @ 100 mls/hr ONCE ONCE IV Last administered on 09/01/20at 18:04; Admin Dose 100 MLS/HR; Start 09/01/20 at 17:45; Stop 09/01/20 at 18:14; Status DC Azithromycin 250 ml @ 200 mls/hr NOW ONCE IV Last administered on 09/01/20at 18:04; Admin Dose 200 MLS/HR; Start 09/01/20 at 17:45; Stop 09/01/20 at 18:59 Ceftriaxone Sodium 1 gm STK-MED ONCE .ROUTE ; Start 09/01/20 at 18:02; Stop 1 11/01/19 at 17:56; Status DC MARLENY ANDERSON DO Sep 01, 2020 18:32
[2020-09-01 18:35] LABS: CREATINE KINASE MB 2.2 ng/mL (0-5.0)
[2020-09-01 18:36] LABS: INR 1.03; PARTIAL THROMBOPLASTIN TIME 26.4 seconds (23.8-35.5)
--- NOTE | 2020-09-01 18:52 | Diagnostic Imaging Report ---
EXAMINATION: CHEST SINGLE (PORTABLE) INDICATION: COUGH, SOB COMPARISON: Multiple prior chest x-rays including most recent on 08/12/2020. CT of the chest on 08/07/2020. FINDINGS: TUBES and LINES: None. LUNGS: Normal lung volumes. Slight interval worsening of diffuse interstitial and airspace opacities throughout both lungs. PLEURA: Is probable trace left pleural effusion. No pneumothorax. HEART AND MEDIASTINUM: The cardiomediastinal silhouette is obscured. BONES AND SOFT TISSUES: No acute osseous lesion. Soft tissues are unremarkable. UPPER ABDOMEN: No free air under the diaphragm. IMPRESSION: Slight interval worsening of diffuse interstitial and airspace opacities throughout both lungs. Findings are compatible with known interstitial lung disease with probable superimposed pulmonary edema. Superimposed infection cannot be excluded and should be considered in the proper clinical context. Signed by: Michelet Slaughter MD on 09/01/2020 6:49 PM
[2020-09-01] MEDS ORDERED: ASPIRIN 81 MG CHEW TAB PO ONE (19:15)
--- NOTE | 2020-09-01 19:36 | NUR ---
K level per report 3.0, ER aware per Lawson NAVA, no new order at this time
--- NOTE | 2020-09-01 19:36 | NUR ---
Received report c/o URBAN Pathak RN
--- NOTE | 2020-09-01 20:00 | NUR ---
Received patient from ER, alert, on O2 support via facemask with NRB at 15L, alert and oriented, transferred to bed comfortably. Call light within easy reach, advised to call for assistance anytime when needed, will continue to monitor closely
--- NOTE | 2020-09-01 20:49 | NUR ---
called consult for Dr. Becerra thru answering service c/o Desiree
[2020-09-01 21:00] VITALS: BP 120/75
[2020-09-01 21:13] VITALS: BP 120/75
--- NOTE | 2020-09-01 22:30 | NUR ---
assisted patient to hook her home CPAP
[2020-09-01 22:49] VITALS: BP 120/75
[2020-09-02] VITALS (9 sets, daily range): BP systolic 100–128; BP diastolic 59–73
[2020-09-02 05:53] LABS: BASOPHILS % 0.1 % (0.0-1.0); HEMATOCRIT 42.3 % (34.2-44.1); HEMOGLOBIN 12.9 g/dL (12.0-16.0); LYMPHOCYTES # (AUTO) 0.8 (1.0-3.2); MEAN CORPUSCULAR HEMOGLOBIN 24.1 pg (28-32); MEAN CORPUSCULAR HGB CONC 30.5 g/dL (31-35); MEAN CORPUSCULAR VOLUME 78.9 fL (81-99); MONOCYTES # (AUTO) 0.4 (0.2-0.8); NEUTROPHILS % 84.7 % (38.7-80.0); PLATELET COUNT 187 x10e3/uL (140-360); RED BLOOD COUNT 5.36 x10e6/uL (3.6-5.1); RED CELL DISTRIBUTION WIDTH 19.3 % (11.7-14.4)
[2020-09-02 06:26] LABS: ALBUMIN 3.3 g/dL (3.5-5.0); ALBUMIN/GLOBULIN RATIO 0.8 (0.8-2.0); ANION GAP 15.3 mmol/L (8-16); CALCIUM 9.1 mg/dL (8.4-10.2); CREATININE, SERUM 1.28 mg/dL (0.57-1.11)
[2020-09-02 06:28] LABS: POTASSIUM 2.3 mmol/L (3.5-5.1)
--- NOTE | 2020-09-02 06:36 | NUR ---
Received call from the lab, patient's K level at 2.3, called Dr. Tinajero's cp, left a detailed message, awaiting call back
[2020-09-02 06:53] LABS: CREATINE KINASE MB 1.4 ng/mL (0-5.0)
[2020-09-02] MEDS ORDERED: POTASSIUM CHLORIDE 10MEQ EA PO ONE (07:00)
--- NOTE | 2020-09-02 07:17 | NUR ---
bedside rounding done with dayshift RN
[2020-09-02] MEDS ORDERED: BENZONATATE 100 MG CAP PO PRN (13:15)
[2020-09-02] MEDS ORDERED: POTASSIUM CHLORIDE 10MEQ EA PO NR (13:15)
[2020-09-02 13:21] LABS: CREATINE KINASE MB 1.5 ng/mL (0-5.0)
[2020-09-02] MEDS: FAMOTIDINE 20 MG TAB PO SCH (13:58)
[2020-09-02] MEDS: FUROSEMIDE INJ 10 MG/ML 4 ML VIAL IV SCH (13:58)
[2020-09-02] MEDS: CEFEPIME 1GM/NS 0.9% 50 ML 50 ML IV SCH (13:58)
[2020-09-02] MEDS: PANTOPRAZOLE SOD 40 MG TABEC PO SCH (13:59)
[2020-09-02] MEDS: SERTRALINE HCL 50 MG TAB PO SCH (13:59)
[2020-09-02] MEDS ORDERED: AZITHROMYCIN 250MG/NS 100 ML 100 ML IV SCH (14:00)
--- NOTE | 2020-09-02 14:49 | Diagnostic Imaging Report ---
EXAMINATION: CT of the face HISTORY: EXAMINATION: CT of the face HISTORY: Facial sinus pain COMPARISON: NA TECHNIQUE: Multidetector helical axial images were acquired through the face without contrast. Dose modulation, iterative reconstruction, and/or weight based adjustment of the mA/kV was utilized to reduce the radiation dose to as low as reasonably achievable. FINDINGS: Bones: Unremarkable. Facial soft tissues: Unremarkable. Paranasal sinuses and drainage pathways: Retention cyst in the left maxillary sinus. Small polyp in the right maxillary sinus. The frontal, ethmoidal, sphenoid and maxillary sinuses are clear. The ostiomeatal units, fronto-nasal and spheno-ethmoidal recesses are clear. Pneumatization of the middle turbinates with partial opacification on the right. Orbits contents: Unremarkable. Nasal septum: Midline. Anatomic variations: No significant anatomic variations. Dentition: No acute abnormality of the visualized teeth. IMPRESSION: 1. Partial opacification of the left posterior ethmoid air cells. Otherwise no evidence of sinusitis. 2. Small retention cyst in the left maxillary sinus and a small polyp in the right maxillary sinus. Signed by: Dr. Jessica Miller M.D. on 09/02/2020 2:46 PM
[2020-09-02] MEDS: AZITHROMYCIN 250MG/NS 100 ML 100 ML IV SCH (15:29)
--- NOTE | 2020-09-02 15:42 | Consultation ---
DATE OF CONSULTATION: Pulmonary consultation. REASON FOR CONSULT: Dizziness and shortness of breath. HISTORY OF PRESENT ILLNESS: Ms. Beatriz Coreas is a 70-year-old female, she presented to the emergency room with complaints of dizziness and not feeling well. She was hypoxic at home. She uses home oxygen. She is well known to me. She has a history of post inflammatory fibrosis as the patient remained in the hospital for long time and requiring trach and ventilator. She is at home using inhaler at home. She denies any nausea, vomiting. She reports increasing facial congestion and postnasal dripping. REVIEW OF SYSTEMS: GENERAL: Denies any fever or chills. HEAD: Denies any head trauma. ENT: Denies any earache. CVS: Denies any chest pain. RESPIRATORY: Shortness of breath. The rest of the review of systems are negative except as in HPI. PAST MEDICAL HISTORY: Post inflammatory fibrosis, obesity. The patient has developed COPD secondary to a prolonged hospital stay due to pneumonia, requiring tracheostomy and ventilatory support. FAMILY AND SOCIAL HISTORY: She does not smoke. Does not drink. PHYSICAL EXAMINATION: VITAL SIGNS: Temperature 97.5, pulse of 65, blood pressure 100/59, respiratory rate of 18, and O2 saturation 97%. HEENT: Head is atraumatic, normocephalic. NECK: Supple. CHEST: Crackles bilaterally. HEART: S1, S2 audible. ABDOMEN: Soft and nontender. EXTREMITIES: No pedal edema. NEUROLOGIC: Awake and alert. LABORATORY DATA: Sodium 141, potassium 2.3, chloride 89, bicarb 39, BUN 48, creatinine 1.28. White count of 8000, hemoglobin 12.9, platelets of 187. Chest x-ray, I have reviewed the images it is showing diffuse interstitial opacities, which is unchanged from the previous. ASSESSMENT: Ms. Leach is a 70-year-old female. 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 She is on home O2, came in because of dizziness and facial pain along with postnasal drip. 1. Postinflammatory fibrosis. 2. Obesity. 3. Hypertension. 4. Acute on chronic hypoxic respiratory failure. PLAN: I will start the patient on Lasix 40 IV daily. Replace potassium. Do a CT face and sinuses. Start the patient on Rocephin, and azithromycin. Oxygen as needed to keep the O2 saturation more than or equal to 92%. MD RENATO Lundberg/TALIB /[id number]
[2020-09-03] VITALS (7 sets, daily range): BP systolic 96–123; BP diastolic 44–73
[2020-09-03] MEDS ORDERED: SODIUM CHLORIDE 0.9% 250ML 250 ML ONE ×3 (01:03→19:59)
[2020-09-03] MEDS: CEFEPIME 1GM/NS 0.9% 50 ML 50 ML IV SCH ×2 (01:04→14:24)
[2020-09-03 06:11] LABS: BASOPHILS # (AUTO) 0.1 (0.0-0.1); BASOPHILS % 0.5 % (0.0-1.0); EOSINOPHILS # (AUTO) 0.2 (0.0-0.4); EOSINOPHILS % 1.7 % (0.0-6.0); HEMATOCRIT 42.2 % (34.2-44.1); HEMOGLOBIN 12.5 g/dL (12.0-16.0); LYMPHOCYTES # (AUTO) 1.6 (1.0-3.2); LYMPHOCYTES % 14.3 % (18.0-39.1); MEAN CORPUSCULAR HEMOGLOBIN 24.3 pg (28-32); MEAN CORPUSCULAR HGB CONC 29.6 g/dL (31-35); MEAN CORPUSCULAR VOLUME 81.9 fL (81-99); MONOCYTES # (AUTO) 1.1 (0.2-0.8); MONOCYTES % 10.2 % (4.4-11.3); PLATELET COUNT 166 x10e3/uL (140-360); RED BLOOD COUNT 5.15 x10e6/uL (3.6-5.1); RED CELL DISTRIBUTION WIDTH 19.5 % (11.7-14.4)
[2020-09-03 06:31] LABS: ANION GAP 15.4 mmol/L (8-16); CALCIUM 9.1 mg/dL (8.4-10.2); CREATININE, SERUM 1.17 mg/dL (0.57-1.11)
[2020-09-03 06:36] LABS: POTASSIUM 2.4 mmol/L (3.5-5.1)
--- NOTE | 2020-09-03 06:45 | NUR ---
Notified Dr Whitman regarding potassium 2.4, new orders for potassium chloride 40 mEq po x1 and potassium chloride 40 mEq IV x1, add magnesium level.
[2020-09-03] MEDS ORDERED: POTASSIUM CHLORIDE 20MEQ/100ML 200 ML IV ONE (07:00)
[2020-09-03] MEDS ORDERED: POTASSIUM CHLORIDE 10MEQ EA PO ONE (07:00)
--- NOTE | 2020-09-03 07:11 | NUR ---
Bedside report and walking rounds completed with oncoming nurse. Patient in bed resting with call light within reach. No issues or concerns noted.
[2020-09-03] MEDS: FUROSEMIDE INJ 10 MG/ML 4 ML VIAL IV SCH (08:49)
[2020-09-03] MEDS: FAMOTIDINE 20 MG TAB PO SCH (08:50)
[2020-09-03] MEDS: PANTOPRAZOLE SOD 40 MG TABEC PO SCH (08:50)
[2020-09-03] MEDS: SERTRALINE HCL 50 MG TAB PO SCH (08:50)
[2020-09-03] MEDS: LEVALBUTEROL HCL SOLN NEBU 1.25 MG/3 ML NEB INH SCH ×3 (15:00→23:00)
[2020-09-03] MEDS: AZITHROMYCIN 250MG/NS 100 ML 100 ML IV SCH (16:00)
[2020-09-03] MEDS ORDERED: DOCUSATE SODIUM 100 MG CAP PO PRN (17:15)
[2020-09-03] MEDS ORDERED: DEXTROSE 50% SYRINGE 50 ML IV PRN (17:15)
[2020-09-03] MEDS ORDERED: HYDROCODONE/APAP 5MG-325MG TAB PO PRN (17:15)
[2020-09-03] MEDS ORDERED: POLYETHYLENE GLYCOL 3350 17 GM PACK PO PRN (17:15)
[2020-09-03] MEDS ORDERED: HYDRALAZINE HCL 20 MG/ML VIAL IV PRN (17:15)
[2020-09-03] MEDS ORDERED: ONDANSETRON HCL INJ 2MG/ML 2ML 2 MG/ML VIAL IV PRN (17:15)
[2020-09-03] MEDS ORDERED: BENZONATATE 100 MG CAP PO PRN (17:15)
[2020-09-03] MEDS ORDERED: ALBUTEROL/IPRATROPIUM 3 ML NEB NEB PRN (17:15)
--- NOTE | 2020-09-03 18:38 | History and Physical ---
CHIEF COMPLAINT: Shortness of breath. HISTORY OF PRESENT ILLNESS: A 70-year-old female, morbidly obese, history of COPD, comes into the ED with complaints of shortness of breath. The patient is on chronic home O2. She has a history of post-inflammatory fibrosis after she was intubated, trached, on the ventilator for significant period of time. The patient is seen and evaluated at bedside on the medical floor. She is currently doing well with no other issues at this time. Denies any cough, congestion, or any fever. No chest pain. REVIEW OF SYSTEMS: Pertinent positive: Shortness of breath. The rest of 14-point review of systems are reviewed with the patient and are negative. ALLERGIES: NO KNOWN DRUG ALLERGIES. HOME MEDICATIONS: Furosemide, potassium, Basaglar, Tessalon Perles, famotidine, Xopenex, Protonix, and citrulline. PAST MEDICAL HISTORY: She has history of post-inflammatory fibrosis secondary to long intubation in the ICU, type 2 diabetes, and acid reflux. PAST SURGICAL HISTORY: Had a tracheostomy in the past. PAST FAMILY HISTORY: Hypertension and diabetes. SOCIAL HISTORY: No drugs. No alcohol. Does not smoke. Good social support. PHYSICAL EXAMINATION: VITAL SIGNS: Temperature was 97.6, pulse 84, respiratory rate 21, blood pressure was 123/73, and pulse ox 99% on 5 L nasal cannula. GENERAL: Not in acute distress. Alert and oriented x3. Cooperative on examination. HEENT: Head; normocephalic, atraumatic. Eyes; pupils are equal, round, and reactive to light bilaterally. Extraocular movements intact bilaterally. Throat; no evidence of erythema or exudates in the posterior pharynx. Has poor dentition. NECK: Supple. Good range of motion. PULMONARY: Clear to auscultation bilaterally. No wheezing, no rales, no rhonchi, no crackles appreciated. CARDIOVASCULAR: Positive S1 and S2. No murmurs, rubs, or gallops appreciated. ABDOMEN: Soft, nondistended, and nontender to palpation. Bowel sounds present. MUSCULOSKELETAL: Strength is 5/5 throughout. No evidence of any muscle deficits on examination. No weakness appreciated. NEUROLOGIC: Cranial nerves 2 through 12 grossly intact. No evidence of any neurological deficits on exam. SKIN: Intact. Warm to touch. Good cap refill. PSYCHIATRIC: Normal affect and mood. EXTREMITIES: No edema. Good range of motion throughout. LABORATORY FINDINGS: Show white count 7.9, hemoglobin 12.5, hematocrit is 42, and platelets of 166. Chemistry; sodium was 144, potassium 2.4, chloride 92, bicarb 39, anion gap of 15, BUN is 45, creatinine is 1.1, glucose is 115, calcium 9.1, and magnesium is 2. Troponins were negative. Albumin was 3.3. Coagulation reviewed, normal. Coronavirus not detected. MICROBIOLOGY: Blood cultures, no growth. IMAGING STUDIES: Chest x-ray shows slight interval worsening of the diffuse interstitial airspace opacities throughout both lungs. Findings compatible with interstitial lung disease and probable superimposed pulmonary edema. CT of the face showed partial opacification of the left posterior ethmoid air cells. Otherwise, no evidence of sinusitis. There is a small retention cyst in the left maxillary sinus and small polyp in the right maxillary sinus. IMPRESSION: 1. Acute post-inflammatory fibrosis with underlying hypoxemia. 2. Morbidly obese. 3. Hypertension. 4. Ffjgh-me-blnmwnr hypoxemic respiratory failure. 5. Hypokalemia. PLAN: At this time, continue with IV antibiotic therapy. Monitor blood cultures. She is on oxygen here and she will continue with home oxygen as well. CT of the face showed no evidence of sinusitis. Replace potassium accordingly. Lovenox for DVT prophylaxis. Restart home medications. Plan of care discussed with the patient and the patient's daughter at bedside. MD STORM Wyatt/BOUBACARL /[id number]
--- NOTE | 2020-09-03 20:04 | Progress Note ---
DATE: Pulmonary Followup SUBJECTIVE: The patient is breathing much better today compared to yesterday. CT of the face, which was done because she was complaining of sinus problems is showing partial opacification of left posterior ethmoid cell. No evidence of sinusitis. PHYSICAL EXAMINATION: VITAL SIGNS: Temperature 97.6, pulse of 84, blood pressure 123/73, respiratory rate of 18, and O2 saturation 99%. CHEST: Clear to auscultation bilaterally. NEUROLOGIC: Awake and alert. ABDOMEN: Soft. EXTREMITIES: No pedal edema. LABORATORY DATA: White count of 10,000, hemoglobin 12.5, and platelets 166. Chemistry reviewed. Potassium is on the lower side, otherwise stable. ASSESSMENT/PLAN: Ms. Beatriz Coreas is a 70-year-old female, well known to me from my office. She has post-inflammatory fibrosis and scarring because she had a prolonged hospital course almost a year and a half ago, where she was intubated, had a tracheostomy and spent quite some time at [facility]. The patient has gradually improved, but still requires home oxygen. Continue the patient on current treatment with IV Lasix and IV antibiotics. Oxygen as needed to keep the O2 saturation more than or equal to 92%. MD RENATO Lundberg/TALIB /[id number]
[2020-09-03] MEDS: BENZONATATE 100 MG CAP PO SCH ×2 (21:00→21:28)
[2020-09-03] MEDS ORDERED: MELATONIN 5 MG TABLET PO PRN (21:00)
[2020-09-04] VITALS (9 sets, daily range): BP systolic 109–130; BP diastolic 62–81
[2020-09-04] MEDS: CEFEPIME 1GM/NS 0.9% 50 ML 50 ML IV SCH ×2 (00:23→12:12)
[2020-09-04] MEDS: LEVALBUTEROL HCL SOLN NEBU 1.25 MG/3 ML NEB INH SCH ×5 (03:00→19:40)
[2020-09-04 05:22] LABS: BASOPHILS # (AUTO) 0.1 (0.0-0.1); BASOPHILS % 0.6 % (0.0-1.0); EOSINOPHILS # (AUTO) 0.2 (0.0-0.4); EOSINOPHILS % 2.2 % (0.0-6.0); HEMATOCRIT 41.6 % (34.2-44.1); HEMOGLOBIN 12.6 g/dL (12.0-16.0); LYMPHOCYTES # (AUTO) 1.2 (1.0-3.2); LYMPHOCYTES % 14.2 % (18.0-39.1); MEAN CORPUSCULAR HEMOGLOBIN 24.7 pg (28-32); MEAN CORPUSCULAR HGB CONC 30.3 g/dL (31-35); MEAN CORPUSCULAR VOLUME 81.6 fL (81-99); MONOCYTES # (AUTO) 0.8 (0.2-0.8); MONOCYTES % 9.6 % (4.4-11.3); NEUTROPHILS # (AUTO) 6.4 (2.1-6.9); NEUTROPHILS % 73.1 % (38.7-80.0); PLATELET COUNT 154 x10e3/uL (140-360); RED CELL DISTRIBUTION WIDTH 18.7 % (11.7-14.4)
[2020-09-04 06:06] LABS: ALBUMIN 3.1 g/dL (3.5-5.0); ALBUMIN/GLOBULIN RATIO 0.8 (0.8-2.0); ANION GAP 12.7 mmol/L (8-16); CALCIUM 8.7 mg/dL (8.4-10.2); CREATININE, SERUM 1.08 mg/dL (0.57-1.11); PHOSPHORUS 3.3 MG/DL (2.3-4.7)
[2020-09-04 06:11] LABS: POTASSIUM 2.7 mmol/L (3.5-5.1)
--- NOTE | 2020-09-04 06:21 | NUR ---
Notified Dr Whitman regarding potassium 2.7, new orders for potassium chloride 20 mEq po x1 and potassium chloride 40 mEq IV x1.
[2020-09-04 06:27] LABS: THYROID STIMULATING HORMONE 0.671 uIU/mL (0.350-4.940)
[2020-09-04] MEDS ORDERED: POTASSIUM CHLORIDE 20MEQ/100ML 200 ML IV ONE (06:45)
[2020-09-04] MEDS ORDERED: POTASSIUM CHLORIDE 10MEQ EA PO ONE (06:45)
--- NOTE | 2020-09-04 07:00 | NUR ---
Received report from off going nurse. Pt sitting up in chair and no apparent distress.
--- NOTE | 2020-09-04 07:03 | NUR ---
Bedside report and walking rounds completed with oncoming nurse. Patient in bed resting with call light within reach. No issues or concerns noted.
[2020-09-04] MEDS: FUROSEMIDE INJ 10 MG/ML 4 ML VIAL IV SCH (08:38)
[2020-09-04] MEDS: PANTOPRAZOLE SOD 40 MG TABEC PO SCH (08:38)
[2020-09-04] MEDS: FAMOTIDINE 20 MG TAB PO SCH (08:38)
[2020-09-04] MEDS: BENZONATATE 100 MG CAP PO SCH ×3 (08:39→20:55)
[2020-09-04] MEDS: SERTRALINE HCL 50 MG TAB PO SCH (08:39)
[2020-09-04] MEDS ORDERED: SODIUM CHLORIDE 0.9% 250ML 250 ML ONE (14:00)
[2020-09-04] MEDS: AZITHROMYCIN 250MG/NS 100 ML 100 ML IV SCH (16:15)
[2020-09-04] MEDS ORDERED: POTASSIUM CHLORIDE 20 MEQ TAB CR PO ONE (17:45)
--- NOTE | 2020-09-04 17:54 | Progress Note ---
DATE: 09/04/2020 Medicine Progress Note SUBJECTIVE: The patient reports she is still very short of breath on examination. When she ambulates, she feels very short of breath. She is stable at rest. No overnight events. PHYSICAL EXAMINATION: VITAL SIGNS: Temperature 98.3, pulse 79, respiratory rate is 19, blood pressure 117/76, pulse ox 100%, she is on 5 L nasal cannula. GENERAL: No acute distress. Alert and oriented x3. Cooperative on examination. PULMONARY: She does have expiratory wheezing appreciated. No crackles. No rales. No rhonchi. CARDIOVASCULAR: Positive S1 and S2. No murmurs, rubs, or gallops appreciated. ABDOMEN: Soft, nondistended, nontender to palpation. Bowel sounds present. MUSCULOSKELETAL: Strength is 5/5 throughout. No evidence of any muscle deficits on examination. SKIN: Intact, warm to touch. Good cap refill. PSYCHIATRIC: Normal affect and mood. EXTREMITIES: No edema. Good range of motion throughout. LABORATORY FINDINGS: Show white count 8.7, hemoglobin 12, hematocrit is 41, and platelets of 154. Chemistry; sodium is 141, potassium 2.7, chloride 94, bicarb 37, anion gap of 12, BUN is 36, creatinine is 1, glucose is 118. LFTs within normal range. MICROBIOLOGY: Blood cultures no growth. IMAGING STUDIES: Nothing new. IMPRESSION: 1. Acute post-inflammatory fibrosis with underlying hypoxemia. 2. Morbidly obese. 3. Hypertension. 4. Fjguk-kl-dwudkhe hypoxemic respiratory failure. 5. Hypokalemia. PLAN: At this time, potassium has been replaced. I also ordered an additional dose of potassium with repeat potassium level at 2100 hours today. She is on IV diuretics. She is also on antibiotics, steroids, and neb treatments. Lovenox for DVT prophylaxis. Plan of care discussed with the patient and the patient's daughter at bedside. Continue to follow Pulmonary recommendations. MD STORM Wyatt/MODL /[id number]
[2020-09-04] MEDS: ENOXAPARIN SOD INJ 40 MG/0.4 ML SYR SC SCH (17:59)
[2020-09-04] MEDS ORDERED: METHYLPREDNISOLONE SOD SUCC 40 MG/ML VIAL 1ML IV SCH (18:00)
[2020-09-04] MEDS: METHYLPREDNISOLONE SOD SUCC 40 MG/ML VIAL 1ML IV SCH (18:35)
[2020-09-04] MEDS ORDERED: ALBUTEROL/IPRATROPIUM 3 ML NEB NEB SCH (19:00)
[2020-09-04] MEDS ORDERED: ALBUTEROL/IPRATROPIUM 3 ML NEB NEB PRN (19:00)
--- NOTE | 2020-09-04 19:00 | NUR ---
Report given to on coming nurse. Pt sitting up in chair, watching tv, and no apparent distress. Pt denies pain 010. Bed in its lowest position.
--- NOTE | 2020-09-04 20:55 | NUR ---
Patient attempted to collect sputum specimen, sample diluted with spit. Encourage patient to cough sputum and collect. Will continue to attempt to collect. Patient reports coughing up sputum in morning, new sterile container provided.
[2020-09-05] VITALS (7 sets, daily range): BP systolic 101–142; BP diastolic 55–76
[2020-09-05] MEDS: CEFEPIME 1GM/NS 0.9% 50 ML 50 ML IV SCH ×2 (01:04→13:45)
[2020-09-05] MEDS ORDERED: SODIUM CHLORIDE 0.9% 250ML 250 ML ONE (01:08)
[2020-09-05] MEDS: METHYLPREDNISOLONE SOD SUCC 40 MG/ML VIAL 1ML IV SCH ×2 (05:33→18:00)
--- NOTE | 2020-09-05 07:01 | NUR ---
Bedside report and walking rounds completed with oncoming nurse. Patient in bed resting with call light within reach. No issues or concerns noted.
--- NOTE | 2020-09-05 07:10 | NUR ---
RCD PT AT BED PT IS ALERT AND ORIENTED RESTING ON BED IV PATENT BED LOW AND LOCKED CALL LIGHT IN REACH
[2020-09-05] MEDS: PANTOPRAZOLE SOD 40 MG TABEC PO SCH (07:30)
[2020-09-05] MEDS: LEVALBUTEROL HCL SOLN NEBU 1.25 MG/3 ML NEB INH SCH ×5 (08:08→23:30)
[2020-09-05] MEDS: FAMOTIDINE 20 MG TAB PO SCH (09:00)
[2020-09-05] MEDS: BENZONATATE 100 MG CAP PO SCH ×3 (09:00→21:07)
[2020-09-05] MEDS: FUROSEMIDE INJ 10 MG/ML 4 ML VIAL IV SCH (09:00)
[2020-09-05] MEDS: SERTRALINE HCL 50 MG TAB PO SCH (09:00)
--- NOTE | 2020-09-05 09:57 | Progress Note ---
DATE: Pulmonary followup SUBJECTIVE: The patient reports that she has improved. PHYSICAL EXAMINATION: VITAL SIGNS: Temperature 97.7, pulse of 70, blood pressure 125/70. CHEST: Clear. No wheezing. HEART: S1, S2 audible. NEUROLOGIC: Awake and alert. LABORATORY DATA: Potassium was low yesterday. No new labs today. ASSESSMENT/PLAN: Ms. 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 Steroid was reduced to 30 IV b.i.d. Continue the patient on nebulizer treatment. Oxygen as needed to keep the O2 saturation more than or equal to 92%. Continue the patient on IV Lasix. MD RENATO Lundberg/TALIB /[id number]
[2020-09-05] MEDS: AZITHROMYCIN 250MG/NS 100 ML 100 ML IV SCH (14:44)
[2020-09-05] MEDS: ENOXAPARIN SOD INJ 40 MG/0.4 ML SYR SC SCH (17:00)
--- NOTE | 2020-09-05 19:13 | NUR ---
PT RESTING ON BED BED SIDE REPORT GIVEN TO ONCOMING NURSE
--- NOTE | 2020-09-05 19:45 | Progress Note ---
DATE: 09/05/2020 Medicine Progress Note SUBJECTIVE: The patient is doing much better today compared to yesterday. No overnight events. She would like to be monitored overnight before being discharged. We will monitor her very closely. PHYSICAL EXAMINATION: VITAL SIGNS: Temperature is 98.1, pulse 79, respiratory rate is 20, blood pressure 117/55, and pulse ox 100% on 5 L nasal cannula at her baseline. GENERAL: Not in acute distress. Alert and oriented x3. Cooperative on examination. PULMONARY: Clear to auscultation bilaterally. No wheezing, no rales, no rhonchi, no crackles appreciated. CARDIOVASCULAR: Positive S1 and S2. No murmurs, rubs, or gallops appreciated. ABDOMEN: Soft, nondistended, and nontender to palpation. Bowel sounds present. MUSCULOSKELETAL: Strength is 5/5 throughout. No evidence of any muscle deficits on examination. SKIN: Intact. Warm to touch. Good cap refill. PSYCHIATRIC: Normal affect and mood. LABORATORY DATA: Show white count 8.7, hemoglobin 12, hematocrit is 41, and platelets of 154. Chemistry none. Blood cultures, no growth to date. Sputum cultures, no growth. IMAGING: Nothing new. IMPRESSION: 1. Acute postinflammatory fibrosis, underlying hypoxemia. 2. Morbidly obese. 3. Hypertension. 4. Rwqul-bw-ceqvvyb hypoxemic respiratory failure. 5. Hypokalemia. PLAN: At this time, potassium is much improved. I did order another potassium level for this evening. Get a.m. labs. Continue with diuretics, antibiotics, steroids, and neb treatments. Lovenox for DVT prophylaxis. I spoke with the patient. She seems to be doing much better and she would like to possibly go home tomorrow if she improves. So far she is doing a way better and she will be likely discharged home tomorrow. We will add Diamox as well due to elevated bicarbonate level. Discussed with Pulmonary and nursing staff. MD STORM Wyatt/MODL /[id number]
--- NOTE | 2020-09-05 20:19 | NUR ---
spoke to dr bauer with k results, no new orders. informed md about diamox backorder, no new orders rc'd.
[2020-09-05] MEDS ORDERED: ACETAZOLAMIDE SODIUM 500 MG/VIAL IV SCH (22:00)
[2020-09-06 00:02] VITALS: BP 109/63
[2020-09-06] MEDS: CEFEPIME 1GM/NS 0.9% 50 ML 50 ML IV SCH (01:40)
[2020-09-06] MEDS: LEVALBUTEROL HCL SOLN NEBU 1.25 MG/3 ML NEB INH SCH ×2 (03:50→07:17)
[2020-09-06 05:45] VITALS: BP 107/64
[2020-09-06 05:49] LABS: ALBUMIN 3.1 g/dL (3.5-5.0); ALBUMIN/GLOBULIN RATIO 0.8 (0.8-2.0); ANION GAP 11.6 mmol/L (8-16); CALCIUM 9.1 mg/dL (8.4-10.2); CREATININE, SERUM 1.08 mg/dL (0.57-1.11); POTASSIUM 3.6 mmol/L (3.5-5.1)
[2020-09-06] MEDS: METHYLPREDNISOLONE SOD SUCC 40 MG/ML VIAL 1ML IV SCH (06:17)
--- NOTE | 2020-09-06 07:05 | NUR ---
RCD PT AT BED PT IS ALERT AND ORIENTED RESTING ON BED ON BED IV PATENT BED LOW AND LOCKED CALL LIGHT IN REAC
[2020-09-06] MEDS: PANTOPRAZOLE SOD 40 MG TABEC PO SCH (07:30)
[2020-09-06 08:45] VITALS: BP 128/62
[2020-09-06 08:50] VITALS: BP 128/62
[2020-09-06] MEDS: FAMOTIDINE 20 MG TAB PO SCH (09:00)
[2020-09-06] MEDS: SERTRALINE HCL 50 MG TAB PO SCH (09:00)
[2020-09-06] MEDS: FUROSEMIDE INJ 10 MG/ML 4 ML VIAL IV SCH (09:00)
[2020-09-06] MEDS: BENZONATATE 100 MG CAP PO SCH (09:00)
[2020-09-06] MEDS ORDERED: CEFDINIR300 MG PO (11:14)
[2020-09-06] MEDS ORDERED: PREDNISONE50 MG PO (11:16)
--- NOTE | 2020-09-06 11:28 | Progress Note ---
DATE: SUBJECTIVE: The patient is breathing much better today. Still having dizzy. The ears are clogged, may need ENT evaluation as outpatient. PHYSICAL EXAMINATION: VITAL SIGNS: Temperature 98, pulse of 94, and blood pressure 128/62. CHEST: Reduced air entry bilaterally. HEART: S1 and S2 audible. NEUROLOGIC: Awake and alert. ABDOMEN: Soft. LABORATORY DATA: White count of 8000, hemoglobin 12.6, and platelets 154. Chemistry reviewed. Face CT did not show any sinus problem. ASSESSMENT/PLAN: Beatriz Coreas is a 70-year-old female came in with shortness of breath, combination of fluid overload. The patient has post-inflammatory scarring in the lung, which she know. She is on home oxygen. PLAN: The patient's respiratory status is back to baseline. Discussed with Dr. Whitman. The patient can be discharged home. She should be on p.o. Lasix at home dose and prednisone in tapering dose. She will follow up with me as an outpatient. MD RENATO Lundberg/BOUBACARL /[id number]
[2020-09-06 12:00] VITALS: BP 115/70
--- NOTE | 2020-09-06 12:03 | NUR ---
CM spoke to pt at bedside. Pt states she's currently on service with [facility] and would like to continue with them. Choice letter signed. IMM letter discussed with pt. She verbalized understanding. Copies of choice letter and IMM given to pt. Signed copies placed in chart. ANTONY called and spoke to Brenda at [facility]. Verified that pt is on service with them, receiving penitentiary and PT. CM informed her that pt will be discharging today. Order and clinical faxed to [facility].
--- NOTE | 2020-09-06 12:35 | NUR ---
PT WENT HOME IN SAFE CONDITION WITH HER DAUGHTER
--- NOTE | 2020-09-06 17:49 | Discharge Summary ---
FINAL DISCHARGE DIAGNOSES: 1. Acute postinflammatory fibrosis exacerbation, now at baseline, improved. 2. Morbidly obese. 3. Hypertension. 4. Secse-qw-ajasudf hypoxemic respiratory failure. 5. Electrolyte abnormalities. CONSULTANTS: We had Pulmonary. VITAL SIGNS: Temperature is 98, pulse 94, respiratory rate is 20, blood pressure was 120/60, pulse ox 99% on 5 L nasal cannula and she is chronically on 5 L at home of nasal cannula. LABORATORY DATA: Labs show white count 8.6, hemoglobin 12.6, hematocrit is 42, and platelets of 154. Coagulation; PT 14, INR 1, PTT 26. Chemistry; sodium 141, potassium 3.6, chloride 97, bicarb 36, anion gap of 11, BUN is 31, creatinine is 1.08, glucose is 169, calcium is 9.1. LFTs within normal range. Total protein is 6.8, albumin was 3.1. TSH was 0.671. Magnesium and phosphorus were within normal range. SEROLOGY: Coronavirus not detected. MICROBIOLOGY: Blood cultures were no growth. Sputum cultures were no growth. IMAGING STUDIES: Chest x-ray, slight interval worsening of diffuse interstitial airspace opacities throughout both lungs, compatible with interstitial lung disease with probable superimposed pulmonary edema. Superimposed event cannot be excluded. CT of the face shows partial opacification of the left posterior ethmoid air cells, otherwise no evidence of sinusitis. Small retention cyst in the left maxillary sinus and small polyp in the right maxillary sinus. HOSPITAL COURSE: A 70-year-old female, morbidly obese, has known history of postinflammatory fibrosis, presents with worsening exacerbation and hypoxemia, admitted for further evaluation and management, in which Pulmonary was consulted. While here, the patient received diuretics, antibiotics, steroids, and neb treatments. Pulmonary was consulted. The patient improved throughout the hospital course. She is chronically on 5 L nasal cannula at home. The patient's symptoms improved and she was on baseline 5 L of nasal cannula prior to being discharged. Her electrolytes were replaced accordingly. She did have a CT of the face, showed no evidence of sinusitis, but was on antibiotics while here. She also has a polyp, which I recommended ENT follow up as an outpatient and I discussed this with the daughter and the patient at bedside and they verbalized understanding. She was discharged on steroid tapering for 2 weeks as well as oral antibiotics. The patient was cleared for discharge by Pulmonary. The patient already has home O2. Home PT/OT was arranged for her as well. She was back to normal baseline. Plan of care was discussed with the patient, the patient's daughter at bedside, with nursing staff present, and they verbalized understanding. On the day of discharge, vital signs were stable, labs reviewed and stable. The patient is seen and evaluated and examined thoroughly on the day of discharge with no other complaints. The patient verbalized understanding and agrees to plan of care to follow up as an outpatient with the primary care physician in 1 week and the business management associate in 1 to 2 weeks' time. MEDICATIONS: See med reconciliation form. DISPOSITION: Home. CONDITION: Stable. DIET: Heart healthy. In the event of any worsening symptoms, the patient was advised come back to the ED for further evaluation. Discharge summary took greater than 35 minutes. MD STORM Wyatt/TALIB /[id number]
== END 2020-09-06 12:35 | disposition home health service (06) | DRG 196 ==
LOC: ER 17:22 → ERHOLD 19:27 → MED/SURG2 20:43
PROVIDERS: ADMIT Internal Medicine; ATTEND Internal Medicine
DX: J84.10 Pulmonary fibrosis, unspecified (principal); J96.21 Acute and chronic respiratory failure with hypoxia; I10 Essential (primary) hypertension; E11.9 Type 2 diabetes mellitus without complications; I48.91 Unspecified atrial fibrillation; E78.5 Hyperlipidemia, unspecified; G47.30 Sleep apnea, unspecified; Z87.891 Personal history of nicotine dependence; Z99.81 Dependence on supplemental oxygen; E87.6 Hypokalemia; Z68.24 Body mass index [BMI] 24.0-24.9, adult; J98.4 Other disorders of lung; E66.01 Morbid (severe) obesity due to excess calories; Z20.828 Contact with and (suspected) exposure to other viral communicable diseases; J33.8 Other polyp of sinus
CPT/HCPCS: 36415; 70486; 71045; 80048; 80053; 82550; 82553; 82948; 83735; 83880; 84100; 84132; 84443; 84484; 85025; 85610; 85730; 87040; 87070; 87205; 93005; 94640; 99284; J0456; J0692; J0696; J1100; J1650; J1940; J2920; J3480; J7050; U0002

== ENCOUNTER 2020-09-08 09:14 | Inpatient (IN) | payer MEDICARE, OTHER ==
[~2020-09-08] VITALS: Ht 149.9 cm; Wt 113.5 kg
[2020-09-08] VITALS (13 sets, daily range): BP systolic 90–122; BP diastolic 53–83
[~2020-09-08 09:14] MED LIST changes: +CEFDINIR300 MG PO; +PREDNISONE50 MG PO
[2020-09-08 09:32] LABS: BASOPHILS % 0.2 % (0.0-1.0); EOSINOPHILS # (AUTO) 0.1 (0.0-0.4); EOSINOPHILS % 0.5 % (0.0-6.0); HEMATOCRIT 46.2 % (34.2-44.1); HEMOGLOBIN 13.7 g/dL (12.0-16.0); LYMPHOCYTES # (AUTO) 1.1 (1.0-3.2); LYMPHOCYTES % 6.1 % (18.0-39.1); MEAN CORPUSCULAR HEMOGLOBIN 24.2 pg (28-32); MEAN CORPUSCULAR HGB CONC 29.7 g/dL (31-35); MEAN CORPUSCULAR VOLUME 81.5 fL (81-99); MONOCYTES # (AUTO) 1.8 (0.2-0.8); MONOCYTES % 10.2 % (4.4-11.3); NEUTROPHILS # (AUTO) 14.6 (2.1-6.9); NEUTROPHILS % 82.3 % (38.7-80.0); PLATELET COUNT 205 x10e3/uL (140-360); RED BLOOD COUNT 5.67 x10e6/uL (3.6-5.1); RED CELL DISTRIBUTION WIDTH 19.8 % (11.7-14.4)
[2020-09-08 09:49] LABS: ALBUMIN 3.2 g/dL (3.5-5.0); ALBUMIN/GLOBULIN RATIO 0.8 (0.8-2.0); ANION GAP 15.5 mmol/L (8-16); CALCIUM 8.3 mg/dL (8.4-10.2); CREATININE, SERUM 1.08 mg/dL (0.57-1.11); POTASSIUM 3.5 mmol/L (3.5-5.1)
[2020-09-08 09:56] LABS: CREATINE KINASE MB 2.1 ng/mL (0-5.0)
[2020-09-08] MEDS ORDERED: GUAIFENESIN AC473 ML PO (10:11)
[2020-09-08] MEDS ORDERED: CEFEPIME 1GM/NS 0.9% 50 ML 50 ML IV STA (10:44)
[2020-09-08] MEDS ORDERED: VANCOMYCIN 1GM/NS 250 ML 250 ML IV STA (10:44)
[2020-09-08 11:07] LABS: ABG PCO2 50 mmHg (35-45); ABG PH 7.46 (7.35-7.45)
[2020-09-08 11:08] LABS: ABG HCO3 35 mmol/L (22-26); ABG PO2 40 mmHg (80-105); ABG TCO2 37
[2020-09-08] MEDS ORDERED: BENZONATATE 100 MG CAP PO PRN (13:14)
[2020-09-08] MEDS ORDERED: FUROSEMIDE INJ 10 MG/ML 4 ML VIAL IV ONE (13:30)
[2020-09-08] MEDS ORDERED: CEFEPIME HCL 1 GM VIAL IV SCH (13:30)
[2020-09-08] MEDS ORDERED: MELATONIN 5 MG TABLET PO PRN (13:45)
[2020-09-08] MEDS ORDERED: ALBUTEROL/IPRATROPIUM 3 ML NEB NEB PRN (13:45)
[2020-09-08] MEDS ORDERED: DEXTROSE 50% SYRINGE 50 ML IV PRN ×2 (13:45→18:45)
[2020-09-08] MEDS ORDERED: POLYETHYLENE GLYCOL 3350 17 GM PACK PO PRN (13:45)
[2020-09-08] MEDS ORDERED: ACETAMINOPHEN 325 MG TAB PO PRN (13:45)
[2020-09-08] MEDS ORDERED: DOCUSATE SODIUM 100 MG CAP PO PRN (13:45)
[2020-09-08] MEDS ORDERED: TRAMADOL HCL 50 MG TAB PO PRN (13:45)
[2020-09-08] MEDS ORDERED: HYDRALAZINE HCL 20 MG/ML VIAL IV PRN (13:45)
[2020-09-08] MEDS ORDERED: ONDANSETRON HCL INJ 2MG/ML 2ML 2 MG/ML VIAL IV PRN (13:45)
[2020-09-08] MEDS: VANCOMYCIN 1GM/NS 250 ML 250 ML IV SCH (14:00)
[2020-09-08] MEDS: CEFEPIME 1GM/NS 0.9% 50 ML 50 ML IV SCH (14:00)
[2020-09-08] MEDS ORDERED: METHYLPREDNISOLONE SOD SUCC 125 MG/2ML VIAL IV ONE (14:30)
[2020-09-08] MEDS: LEVALBUTEROL HCL SOLN NEBU 1.25 MG/3 ML NEB INH SCH ×3 (15:00→23:02)
[2020-09-08] MEDS ORDERED: ENOXAPARIN SOD INJ 40 MG/0.4 ML SYR SC SCH (17:00)
[2020-09-08] MEDS: FUROSEMIDE INJ 10 MG/ML 4 ML VIAL IV SCH (18:36)
[2020-09-08] MEDS ORDERED: METHYLPREDNISOLONE SOD SUCC 40 MG/ML VIAL 1ML IV SCH (22:00)
[2020-09-08] MEDS: METHYLPREDNISOLONE SOD SUCC 40 MG/ML VIAL 1ML IV SCH (22:00)
[2020-09-08] MEDS: INSULIN LISPRO 100 UNIT/1 ML 3ML VIAL SQ SCH (22:34)
[2020-09-09] VITALS (15 sets, daily range): BP systolic 103–136; BP diastolic 63–88
[2020-09-09] MEDS ORDERED: HEPARIN IV SCH (00:30)
[2020-09-09] MEDS ORDERED: DEXTROSE 5% IV SCH (00:30)
[2020-09-09] MEDS ORDERED: HEPARIN 25,000 UNIT DRIP IV ONE (01:49)
[2020-09-09] MEDS: HEPARIN 25,000 UNIT 25,000 UNIT in DEXTROSE 5% 250ML 250 ML IV SCH ×2 (02:22→11:00)
[2020-09-09] MEDS: LEVALBUTEROL HCL SOLN NEBU 1.25 MG/3 ML NEB INH SCH ×2 (02:51→07:00)
[2020-09-09] MEDS: VANCOMYCIN 1GM/NS 250 ML 250 ML IV SCH ×2 (03:00→13:02)
[2020-09-09] MEDS: CEFEPIME 1GM/NS 0.9% 50 ML 50 ML IV SCH ×2 (03:00→13:02)
[2020-09-09 06:19] LABS: HEMATOCRIT 41.7 % (34.2-44.1); HEMOGLOBIN 12.3 g/dL (12.0-16.0); LYMPHOCYTES # (AUTO) 0.5 (1.0-3.2); LYMPHOCYTES % 6.6 % (18.0-39.1); MEAN CORPUSCULAR HEMOGLOBIN 24.2 pg (28-32); MEAN CORPUSCULAR HGB CONC 29.5 g/dL (31-35); MEAN CORPUSCULAR VOLUME 81.9 fL (81-99); MONOCYTES # (AUTO) 0.3 (0.2-0.8); MONOCYTES % 3.9 % (4.4-11.3); NEUTROPHILS # (AUTO) 7.3 (2.1-6.9); PLATELET COUNT 144 x10e3/uL (140-360); RED BLOOD COUNT 5.09 x10e6/uL (3.6-5.1); RED CELL DISTRIBUTION WIDTH 18.7 % (11.7-14.4)
[2020-09-09 06:20] LABS: ALBUMIN 2.7 g/dL (3.5-5.0); ALBUMIN/GLOBULIN RATIO 0.7 (0.8-2.0); ANION GAP 15.4 mmol/L (8-16); CALCIUM 8.1 mg/dL (8.4-10.2); CREATININE, SERUM 1.08 mg/dL (0.57-1.11); POTASSIUM 3.4 mmol/L (3.5-5.1)
[2020-09-09 06:41] LABS: THYROID STIMULATING HORMONE 0.307 uIU/mL (0.350-4.940)
[2020-09-09] MEDS ORDERED: PANTOPRAZOLE SOD 40 MG TABEC PO SCH (07:30)
[2020-09-09] MEDS: INSULIN LISPRO 100 UNIT/1 ML 3ML VIAL SQ SCH ×4 (07:39→21:00)
[2020-09-09] MEDS: PANTOPRAZOLE SOD 40 MG TABEC PO SCH (07:46)
[2020-09-09] MEDS: SERTRALINE HCL 50 MG TAB PO SCH (07:46)
[2020-09-09] MEDS: FUROSEMIDE INJ 10 MG/ML 4 ML VIAL IV SCH ×2 (07:46→17:26)
[2020-09-09] MEDS: METHYLPREDNISOLONE SOD SUCC 40 MG/ML VIAL 1ML IV SCH ×2 (07:46→21:50)
[2020-09-09] MEDS: FAMOTIDINE 20 MG TAB PO SCH (07:46)
[2020-09-09] MEDS ORDERED: LEVALBUTEROL HCL SOLN NEBU 1.25 MG/3 ML NEB INH SCH (13:00)
[2020-09-09] MEDS: LEVALBUTEROL 15 GM AERO IH SCH ×3 (17:07→22:34)
[2020-09-09 17:54] LABS: ABG HCO3 34 mmol/L (22-26); ABG PCO2 51 mmHg (35-45); ABG PH 7.43 (7.35-7.45); ABG PO2 91 mmHg (80-105); ABG TCO2 36
[2020-09-10] VITALS (25 sets, daily range): BP systolic 87–140; BP diastolic 72–98
[2020-09-10] MEDS: VANCOMYCIN 1GM/NS 250 ML 250 ML IV SCH ×2 (02:20→14:21)
[2020-09-10] MEDS: CEFEPIME 1GM/NS 0.9% 50 ML 50 ML IV SCH ×2 (02:20→13:52)
[2020-09-10] MEDS: LEVALBUTEROL 15 GM AERO IH SCH ×6 (03:04→23:10)
[2020-09-10] MEDS: POTASSIUM CHLORIDE 20 MEQ TAB CR PO PRN (07:57)
[2020-09-10] MEDS: SERTRALINE HCL 50 MG TAB PO SCH (07:58)
[2020-09-10] MEDS: METHYLPREDNISOLONE SOD SUCC 40 MG/ML VIAL 1ML IV SCH ×2 (07:58→21:53)
[2020-09-10] MEDS: PANTOPRAZOLE SOD 40 MG TABEC PO SCH (07:58)
[2020-09-10] MEDS: FAMOTIDINE 20 MG TAB PO SCH (07:58)
[2020-09-10] MEDS: FUROSEMIDE INJ 10 MG/ML 4 ML VIAL IV SCH ×2 (07:58→16:09)
[2020-09-10] MEDS: INSULIN LISPRO 100 UNIT/1 ML 3ML VIAL SQ SCH ×4 (08:03→22:06)
[2020-09-10] MEDS: INSULIN GLARGINE SC SCH (09:00)
[2020-09-11] VITALS (26 sets, daily range): BP systolic 94–141; BP diastolic 60–92
[2020-09-11] MEDS: HEPARIN 25,000 UNIT 25,000 UNIT in DEXTROSE 5% 250ML 250 ML IV SCH ×2 (01:00→21:17)
[2020-09-11] MEDS: CEFEPIME 1GM/NS 0.9% 50 ML 50 ML IV SCH ×2 (01:45→13:12)
[2020-09-11] MEDS ORDERED: SODIUM CHLORIDE 0.9% 250ML 250 ML ONE (01:47)
[2020-09-11] MEDS: VANCOMYCIN 1GM/NS 250 ML 250 ML IV SCH ×2 (02:45→14:06)
[2020-09-11] MEDS: LEVALBUTEROL 15 GM AERO IH SCH ×5 (03:08→19:40)
[2020-09-11 05:52] LABS: BASOPHILS % 0.1 % (0.0-1.0); HEMATOCRIT 41.1 % (34.2-44.1); HEMOGLOBIN 12.2 g/dL (12.0-16.0); LYMPHOCYTES # (AUTO) 0.5 (1.0-3.2); LYMPHOCYTES % 4.1 % (18.0-39.1); MEAN CORPUSCULAR HEMOGLOBIN 24.3 pg (28-32); MEAN CORPUSCULAR HGB CONC 29.7 g/dL (31-35); MEAN CORPUSCULAR VOLUME 81.9 fL (81-99); MONOCYTES % 8.1 % (4.4-11.3); NEUTROPHILS % 87.1 % (38.7-80.0); PLATELET COUNT 148 x10e3/uL (140-360); RED BLOOD COUNT 5.02 x10e6/uL (3.6-5.1)
[2020-09-11 06:12] LABS: ANION GAP 12.6 mmol/L (8-16); BLOOD UREA NITROGEN 29 mg/dL (7-26); BUN/CREATININE RATIO 32 (6-25); CALCIUM 7.9 mg/dL (8.4-10.2); CARBON DIOXIDE 36 mmol/L (22-29); CHLORIDE 99 mmol/L (98-107); EST GLOMERULAR FILTRATION RATE > 60 ML/MIN (60-); GLUCOSE 176 mg/dL (74-118); POTASSIUM 3.6 mmol/L (3.5-5.1); SODIUM 144 mmol/L (136-145)
[2020-09-11] MEDS: METHYLPREDNISOLONE SOD SUCC 40 MG/ML VIAL 1ML IV SCH ×2 (08:04→21:17)
[2020-09-11] MEDS: PANTOPRAZOLE SOD 40 MG TABEC PO SCH (08:04)
[2020-09-11] MEDS: SERTRALINE HCL 50 MG TAB PO SCH (08:04)
[2020-09-11] MEDS: FAMOTIDINE 20 MG TAB PO SCH (08:04)
[2020-09-11] MEDS: FUROSEMIDE INJ 10 MG/ML 4 ML VIAL IV SCH ×2 (08:04→16:20)
[2020-09-11] MEDS: INSULIN LISPRO 100 UNIT/1 ML 3ML VIAL SQ SCH ×4 (08:07→21:18)
[2020-09-11] MEDS: INSULIN GLARGINE SC SCH (08:14)
[2020-09-11 10:23] LABS: HYPOCHROMASIA SLIGHT
[2020-09-11 10:24] LABS: ANISOCYTOSIS SLIGHT
[2020-09-11 10:25] LABS: PLATELET ESTIMATE ADEQUATE; PLATELET MORPHOLOGY COMMENT NORMAL; RBC MORPHOLOGY COMMENT NORMAL
[2020-09-11] MEDS ORDERED: METOLAZONE 5 MG TAB PO ONE (11:45)
[2020-09-11] MEDS: LORAZEPAM 0.5 MG TAB PO PRN (12:00)
[2020-09-11 12:08] LABS: BASOPHILS % 0.1 % (0.0-1.0); EOSINOPHILS % 0.1 % (0.0-6.0); HEMATOCRIT 44.2 % (34.2-44.1); HEMOGLOBIN 13.2 g/dL (12.0-16.0); LYMPHOCYTES # (AUTO) 0.7 (1.0-3.2); LYMPHOCYTES % 4.6 % (18.0-39.1); MEAN CORPUSCULAR HEMOGLOBIN 24.5 pg (28-32); MEAN CORPUSCULAR HGB CONC 29.9 g/dL (31-35); MONOCYTES # (AUTO) 1.5 (0.2-0.8); MONOCYTES % 10.1 % (4.4-11.3); NEUTROPHILS # (AUTO) 12.8 (2.1-6.9); NEUTROPHILS % 84.5 % (38.7-80.0); PLATELET COUNT 176 x10e3/uL (140-360); RED BLOOD COUNT 5.39 x10e6/uL (3.6-5.1); RED CELL DISTRIBUTION WIDTH 19.7 % (11.7-14.4)
[2020-09-11] MEDS ORDERED: HEPARIN 25,000 UNIT DRIP IV ONE (20:10)
[2020-09-11] MEDS: GUAIFENESIN/CODEINE 10 ML CUP PO PRN (21:18)
[2020-09-12] VITALS (16 sets, daily range): BP systolic 94–126; BP diastolic 66–91
[2020-09-12] MEDS: VANCOMYCIN 1GM/NS 250 ML 250 ML IV SCH ×2 (02:06→15:26)
[2020-09-12] MEDS: CEFEPIME 1GM/NS 0.9% 50 ML 50 ML IV SCH ×2 (02:06→15:26)
[2020-09-12] MEDS: LEVALBUTEROL 15 GM AERO IH SCH ×7 (03:12→23:15)
[2020-09-12 06:09] LABS: BASOPHILS % 0.1 % (0.0-1.0); HEMATOCRIT 44.9 % (34.2-44.1); HEMOGLOBIN 13.4 g/dL (12.0-16.0); LYMPHOCYTES # (AUTO) 0.7 (1.0-3.2); LYMPHOCYTES % 5.3 % (18.0-39.1); MEAN CORPUSCULAR HEMOGLOBIN 24.5 pg (28-32); MEAN CORPUSCULAR HGB CONC 29.8 g/dL (31-35); MEAN CORPUSCULAR VOLUME 81.9 fL (81-99); MONOCYTES # (AUTO) 0.9 (0.2-0.8); MONOCYTES % 6.8 % (4.4-11.3); NEUTROPHILS # (AUTO) 11.7 (2.1-6.9); NEUTROPHILS % 87.3 % (38.7-80.0); PLATELET COUNT 171 x10e3/uL (140-360); RED BLOOD COUNT 5.48 x10e6/uL (3.6-5.1); RED CELL DISTRIBUTION WIDTH 19.1 % (11.7-14.4)
[2020-09-12 06:45] LABS: ALBUMIN 2.7 g/dL (3.5-5.0); ALBUMIN/GLOBULIN RATIO 0.6 (0.8-2.0); ANION GAP 18.1 mmol/L (8-16); CALCIUM 8.7 mg/dL (8.4-10.2); CREATININE, SERUM 1.15 mg/dL (0.57-1.11); POTASSIUM 3.1 mmol/L (3.5-5.1)
[2020-09-12] MEDS: INSULIN LISPRO 100 UNIT/1 ML 3ML VIAL SQ SCH ×4 (07:25→21:15)
[2020-09-12] MEDS: INSULIN GLARGINE SC SCH (09:00)
[2020-09-12] MEDS: METHYLPREDNISOLONE SOD SUCC 40 MG/ML VIAL 1ML IV SCH ×2 (09:27→21:13)
[2020-09-12] MEDS: PANTOPRAZOLE SOD 40 MG TABEC PO SCH (09:27)
[2020-09-12] MEDS: SERTRALINE HCL 50 MG TAB PO SCH (09:27)
[2020-09-12] MEDS: FAMOTIDINE 20 MG TAB PO SCH (09:27)
[2020-09-12] MEDS: FUROSEMIDE INJ 10 MG/ML 4 ML VIAL IV SCH ×2 (09:27→17:25)
[2020-09-12] MEDS ORDERED: POTASSIUM CHLORIDE 20 MEQ TAB CR PO ONE (09:58)
[2020-09-12] MEDS ORDERED: HEPARIN 25,000 UNIT DRIP IV ONE (14:02)
[2020-09-13] VITALS (17 sets, daily range): BP systolic 99–136; BP diastolic 66–106
[2020-09-13] MEDS: CEFEPIME 1GM/NS 0.9% 50 ML 50 ML IV SCH ×2 (02:58→13:02)
[2020-09-13] MEDS: VANCOMYCIN 1GM/NS 250 ML 250 ML IV SCH ×2 (02:58→13:06)
[2020-09-13] MEDS: LEVALBUTEROL 15 GM AERO IH SCH ×5 (03:50→18:50)
[2020-09-13 05:25] LABS: BASOPHILS % 0.1 % (0.0-1.0); HEMATOCRIT 46.3 % (34.2-44.1); HEMOGLOBIN 14.1 g/dL (12.0-16.0); LYMPHOCYTES # (AUTO) 0.7 (1.0-3.2); LYMPHOCYTES % 5.4 % (18.0-39.1); MEAN CORPUSCULAR HEMOGLOBIN 24.4 pg (28-32); MEAN CORPUSCULAR HGB CONC 30.5 g/dL (31-35); MONOCYTES # (AUTO) 0.5 (0.2-0.8); MONOCYTES % 4.3 % (4.4-11.3); NEUTROPHILS # (AUTO) 11.2 (2.1-6.9); NEUTROPHILS % 89.7 % (38.7-80.0); PLATELET COUNT 194 x10e3/uL (140-360); RED BLOOD COUNT 5.79 x10e6/uL (3.6-5.1); RED CELL DISTRIBUTION WIDTH 19.1 % (11.7-14.4)
[2020-09-13 06:04] LABS: ANION GAP 17.3 mmol/L (8-16); CALCIUM 8.9 mg/dL (8.4-10.2); CREATININE, SERUM 1.28 mg/dL (0.57-1.11); POTASSIUM 3.3 mmol/L (3.5-5.1)
[2020-09-13] MEDS ORDERED: HEPARIN 25,000 UNIT DRIP IV ONE (06:30)
[2020-09-13] MEDS: FLUCONAZOLE 200 MG/100 ML 100 ML IV SCH (06:34)
[2020-09-13] MEDS: HEPARIN 25,000 UNIT 25,000 UNIT in DEXTROSE 5% 250ML 250 ML IV SCH (06:35)
[2020-09-13] MEDS: INSULIN LISPRO 100 UNIT/1 ML 3ML VIAL SQ SCH ×4 (07:45→21:00)
[2020-09-13] MEDS: FUROSEMIDE INJ 10 MG/ML 4 ML VIAL IV SCH ×2 (08:36→16:04)
[2020-09-13] MEDS: METHYLPREDNISOLONE SOD SUCC 40 MG/ML VIAL 1ML IV SCH ×2 (08:36→20:53)
[2020-09-13] MEDS: PANTOPRAZOLE SOD 40 MG TABEC PO SCH (08:36)
[2020-09-13] MEDS: SERTRALINE HCL 50 MG TAB PO SCH (08:36)
[2020-09-13] MEDS: FAMOTIDINE 20 MG TAB PO SCH (08:36)
[2020-09-13] MEDS: INSULIN GLARGINE SC SCH (09:00)
[2020-09-13] MEDS: LORAZEPAM 0.5 MG TAB PO PRN (11:30)
[2020-09-13] MEDS: POTASSIUM CHLORIDE 20 MEQ TAB CR PO PRN (13:02)
[2020-09-14] VITALS (19 sets, daily range): BP systolic 94–126; BP diastolic 60–102
[2020-09-14] MEDS ORDERED: HEPARIN 25,000 UNIT DRIP IV ONE (00:30)
[2020-09-14] MEDS: HEPARIN 25,000 UNIT 25,000 UNIT in DEXTROSE 5% 250ML 250 ML IV SCH (00:32)
[2020-09-14] MEDS: LEVALBUTEROL 15 GM AERO IH SCH ×4 (02:20→15:25)
[2020-09-14] MEDS: CEFEPIME 1GM/NS 0.9% 50 ML 50 ML IV SCH (02:20)
[2020-09-14 05:01] LABS: BASOPHILS % 0.2 % (0.0-1.0); HEMATOCRIT 49.2 % (34.2-44.1); HEMOGLOBIN 14.8 g/dL (12.0-16.0); LYMPHOCYTES # (AUTO) 0.9 (1.0-3.2); LYMPHOCYTES % 5.1 % (18.0-39.1); MEAN CORPUSCULAR HEMOGLOBIN 24.7 pg (28-32); MEAN CORPUSCULAR HGB CONC 30.1 g/dL (31-35); MONOCYTES # (AUTO) 0.8 (0.2-0.8); MONOCYTES % 4.5 % (4.4-11.3); NEUTROPHILS # (AUTO) 15.1 (2.1-6.9); NEUTROPHILS % 89.4 % (38.7-80.0); PLATELET COUNT 247 x10e3/uL (140-360); RED CELL DISTRIBUTION WIDTH 19.3 % (11.7-14.4)
[2020-09-14 05:30] LABS: ALBUMIN 2.9 g/dL (3.5-5.0); ALBUMIN/GLOBULIN RATIO 0.7 (0.8-2.0); ANION GAP 17.8 mmol/L (8-16); CALCIUM 8.9 mg/dL (8.4-10.2); CREATININE, SERUM 1.6 mg/dL (0.57-1.11); POTASSIUM 3.8 mmol/L (3.5-5.1)
[2020-09-14] MEDS: FLUCONAZOLE 200 MG/100 ML 100 ML IV SCH (06:16)
[2020-09-14] MEDS: PANTOPRAZOLE SOD 40 MG TABEC PO SCH (07:50)
[2020-09-14] MEDS: INSULIN LISPRO 100 UNIT/1 ML 3ML VIAL SQ SCH ×3 (07:55→16:32)
[2020-09-14] MEDS: METHYLPREDNISOLONE SOD SUCC 40 MG/ML VIAL 1ML IV SCH (07:59)
[2020-09-14] MEDS: FUROSEMIDE INJ 10 MG/ML 4 ML VIAL IV SCH (07:59)
[2020-09-14] MEDS: FAMOTIDINE 20 MG TAB PO SCH (07:59)
[2020-09-14] MEDS: SERTRALINE HCL 50 MG TAB PO SCH (08:00)
[2020-09-14] MEDS: INSULIN GLARGINE SC SCH (08:00)
[2020-09-14] MEDS: GUAIFENESIN/CODEINE 10 ML CUP PO PRN (11:48)
[2020-09-14] MEDS: LORAZEPAM 0.5 MG TAB PO PRN (13:20)
[2020-09-14] MEDS ORDERED: METOPROLOL TARTRATE 25 MG TAB PO SCH (17:00)
[2020-09-14] MEDS ORDERED: APIXABAN 5 MG TABLET PO SCH (17:00)
[2020-09-14] MEDS ORDERED: AMIODARONE HCL 200 MG TAB PO SCH (17:00)
[2020-09-14] MEDS ORDERED: FUROSEMIDE INJ 10 MG/ML 4 ML VIAL IV SCH (17:00)
[2020-09-14] MEDS ORDERED: ETOMIDATE 2 MG/ML 10 ML INJ IV ONE (17:58)
[2020-09-14] MEDS ORDERED: SUCCINYLCHOLINE CHLORIDE 20 MG/ML 10ML VIAL ONE (17:58)
[2020-09-14] MEDS ORDERED: AMIODARONE 900MG 900 MG/500 ML BAG IV ONE (17:59)
[2020-09-14] MEDS ORDERED: AMIODARONE HCL INJ 150MG/3ML ONE (17:59)
[2020-09-14] MEDS ORDERED: SODIUM BICARBONATE 8.4% INJ 50 ML SYR ONE (17:59)
[2020-09-14] MEDS ORDERED: CALCIUM CHLORIDE 10% 1.36 MEQ/ML 10ML SYR IV ONE (17:59)
[2020-09-14] MEDS ORDERED: EPINEPHRINE HCL SYRINGE ONE (17:59)
[2020-09-14] MEDS ORDERED: DEXTROSE 50% SYRINGE 50 ML IV ONE (17:59)
[2020-09-14] MEDS ORDERED: SODIUM CHLORIDE FLUSH 10 ML SYR ONE (17:59)
[2020-09-14] MEDS ORDERED: FENTANYL 2000MCG/NS 250 250 ML ONE (19:00)
[2020-09-14] MEDS ORDERED: ATROPINE SULFATE 0.1 MG/ML 10ML SYR ONE ×2 (19:05→19:20)
[2020-09-14] MEDS ORDERED: NOREPINEPHRINE 8 MG/D5W 250 ML 250 ML ONE (19:07)
[2020-09-14] MEDS ORDERED: PROPOFOL IV EMULSION 10MG/ML 100 ML IV SCH (19:15)
[2020-09-14] MEDS ORDERED: FENTANYL 2000MCG/NS 250 250 ML IV PRN (19:15)
[2020-09-14] MEDS ORDERED: NOREPINEPHRINE 8 MG/D5W 250 ML 250 ML IV SCH (19:15)
[2020-09-14] MEDS ORDERED: ALTEPLASE 50 MG/VIAL (29 MILLION IU) ONE (19:28)
[2020-09-14] MEDS ORDERED: FUROSEMIDE INJ 10 MG/ML 4 ML VIAL ONE (19:45)
[2020-09-14] MEDS ORDERED: ASPIRIN 81 MG CHEW TAB PO ONE (19:45)
[2020-09-14 19:47] LABS: BASOPHILS # (AUTO) 0.1 (0.0-0.1); BASOPHILS % 0.5 % (0.0-1.0); EOSINOPHILS % 0.1 % (0.0-6.0); HEMATOCRIT 50.8 % (34.2-44.1); HEMOGLOBIN 14.2 g/dL (12.0-16.0); LYMPHOCYTES # (AUTO) 4.2 (1.0-3.2); MEAN CORPUSCULAR HEMOGLOBIN 24.1 pg (28-32); MEAN CORPUSCULAR VOLUME 86.4 fL (81-99); MONOCYTES # (AUTO) 2.3 (0.2-0.8); MONOCYTES % 7.7 % (4.4-11.3); NEUTROPHILS # (AUTO) 21.7 (2.1-6.9); NEUTROPHILS % 71.7 % (38.7-80.0); PLATELET COUNT 226 x10e3/uL (140-360); RED BLOOD COUNT 5.88 x10e6/uL (3.6-5.1)
[2020-09-14 19:51] LABS: INR 1.77; PROTHROMBIN TIME 21.5 seconds (11.9-14.5)
[2020-09-14 20:03] LABS: CREATINE KINASE MB 2.8 ng/mL (0-5.0)
[2020-09-14 20:09] LABS: ALBUMIN 2.4 g/dL (3.5-5.0); ALBUMIN/GLOBULIN RATIO 0.6 (0.8-2.0); CALCIUM 8.2 mg/dL (8.4-10.2); CREATININE, SERUM 2.23 mg/dL (0.57-1.11)
== END 2020-09-14 23:51 | disposition expired | DRG 208 ==
LOC: ER 10:01 → ERHOLD 10:58 → ICU 11:48
PROVIDERS: ADMIT Internal Medicine; ATTEND Internal Medicine
PROC: 02HV33Z Insertion of Infusion Device into Superior Vena Cava, Percutaneous Approach (ICD-10-PCS; principal; 2020-09-08)
PROC: B548ZZA Ultrasonography of Superior Vena Cava, Guidance (ICD-10-PCS; 2020-09-08)
PROC: 5A1935Z Respiratory Ventilation, Less than 24 Consecutive Hours (ICD-10-PCS; 2020-09-14)
PROC: 5A12012 Performance of Cardiac Output, Single, Manual (ICD-10-PCS; 2020-09-14)
PROC: 0BH17EZ Insertion of Endotracheal Airway into Trachea, Via Natural or Artificial Opening (ICD-10-PCS; 2020-09-14)
DX: J15.9 Unspecified bacterial pneumonia (principal); J96.21 Acute and chronic respiratory failure with hypoxia; I26.99 Other pulmonary embolism without acute cor pulmonale; Z68.43 Body mass index [BMI] 50.0-59.9, adult; I50.32 Chronic diastolic (congestive) heart failure; N17.9 Acute kidney failure, unspecified; I50.9 Heart failure, unspecified; I46.9 Cardiac arrest, cause unspecified; I11.0 Hypertensive heart disease with heart failure; E11.9 Type 2 diabetes mellitus without complications; J44.9 Chronic obstructive pulmonary disease, unspecified; J84.10 Pulmonary fibrosis, unspecified; E66.01 Morbid (severe) obesity due to excess calories; G47.33 Obstructive sleep apnea (adult) (pediatric); Z88.8 Allergy status to other drugs, medicaments and biological substances; Z99.81 Dependence on supplemental oxygen; Z20.828 Contact with and (suspected) exposure to other viral communicable diseases
CPT/HCPCS: 36415; 36569; 36600; 71045; 71250; 78582; 80048; 80053; 80202; 82550; 82553; 82805; 82948; 83036; 83605; 83880; 84439; 84443; 84481; 84484; 85025; 85610; 85730; 87040; 87070; 87205; 93005; 93970; 94002; 94640; 94660; 94664; 96365; 97139; 99284; J0171; J0330; J0692; J1450; J1650; J1940; J2405; J2920; J2930; J3370; J7050; J7799; U0002